=== PATIENT | female | born 1945 | race Caucasian/White ===

== ENCOUNTER 2023-03-19 14:05 | Emergency (ER) | payer MEDICARE, SELFPAY ==
[2023-03-19] VITALS (16 sets, daily range): BP systolic 168–192; BP diastolic 67–116; PULSE 58–65; RESP 8–20; TEMP 36.8; O2SAT 78–100; BMI 19.6
--- NOTE | 2023-03-19 14:22 | CT_ITS ---
The [address] [address] Patient Name: JASIEL ROOT MRN: [id number] date: 1945 Sex: F Assigned Patient Location: ER Current Patient Location: ER Accession/Order Number: [id number] Exam Date: 03/19/2023 15:00 Report Date: 03/19/2023 15:15 At the request of: COLTON GRAF Procedure: CT head/brain wo con EXAM: CT head/brain wo con HISTORY: Syncopal episode, injury, left orbital injury COMPARISON: None. TECHNIQUE: Axial noncontrast CT imaging of the head was performed with coronal and sagittal reformats. FINDINGS: Calvarium/skull base: Trace left periorbital soft tissue contusion. Visualized portion of the intraorbital soft tissues appear grossly unremarkable. No evidence of acute fracture or destructive lesion. Mastoids and middle ears demonstrate no substantial mucosal disease. Paranasal sinuses: No air fluid levels. Brain: No acute intracranial hemorrhage. No acute large vascular territory infarct. Moderate parenchymal volume loss with associated prominence of the ventricular system and sulci. No mass lesion or mass effect. No hydrocephalus. CT/CT head/brain wo con IMPRESSION: 1. No acute intracranial process. 2. Questionable diastases of seizure along the left supraorbital rim versus tiny fracture. This is suboptimally evaluated on the current study. If clinically warranted consider dedicated CT facial bones for further evaluation. 3. Left periorbital soft tissue contusion. Electronically authenticated by: JAVED BUCHANAN Date: 03/19/2023 15:15
--- NOTE | 2023-03-19 14:22 | CT_ITS ---
[address] [address] Patient Name: JASIEL ROOT MRN: [id number] date: 1945 Sex: F Assigned Patient Location: ER Current Patient Location: [facility] Accession/Order Number: [id number] Exam Date: 03/19/2023 15:00 Report Date: 03/19/2023 15:42 At the request of: COLTON GRAF Procedure: CT cervical spine wo con EXAMINATION: CT cervical spine wo con HISTORY: fall [] COMPARISON: None. TECHNIQUE: CT Cervical spine without IV contrast. Coronal and sagittal reformations were performed. Dose reduction techniques were achieved by using automated exposure control and/or adjustment of mA and/or kV according to patient size and/or use of iterative reconstruction technique. FINDINGS: CV JUNCTION: Normal foramen magnum with no Chiari malformation. PARASPINAL: Normal with no visible mass. BONES: No fracture, pars defect, or osseous lesion. OTHER: None. DISC LEVELS: C1-C2: Within normal limits for age. C2-C3: No significant disc/facet abnormality, spinal stenosis, or foraminal stenosis. C3-C4: No significant disc/facet abnormality, spinal stenosis, or foraminal stenosis. C4-C5: Early degenerative disc disease is present without focal protrusion. The central canal and left foramen are satisfactorily maintained. There is mild right foraminal stenosis. C5-C6: Early degenerative disc disease is present without focal protrusion. The central canal is satisfactorily maintained. There is mild foraminal stenosis bilaterally. C6-C7: Early degenerative disc disease is present without focal protrusion. The central canal and neural foramina are satisfactorily maintained. Facet arthropathy is noted, left greater than right. C7-T1: Early degenerative disc disease is present without focal protrusion. The central canal and neural foramina are satisfactorily maintained. Early facet arthropathy is noted. CT/CT cervical spine wo con IMPRESSION: Multilevel cervical spondylosis. No evidence for acute fracture or traumatic malalignment. Electronically authenticated by: Angie PANG Date: 03/19/2023 15:42
--- NOTE | 2023-03-19 14:22 | ECG_ITS ---
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
--- NOTE | 2023-03-19 14:25 | ED.HEATRA1 ---
Documented by User: Sasha Corcoran 03/19/23 18:08 HPI - Head Injury General Chief complaint: Head Injury Stated complaint: FELL/HIT HEAD Time Seen by Provider: 03/19/23 14:17 Source: patient Mode of arrival: Wheelchair Limitations: no limitations History of Present Illness HPI Narrative: 77 year old female presents to the ED for evaluation s/p a head injury. Her states she was in the restroom giving herself an enema. He left the area for a period of time. When he returned she was sitting on the toilet with a wound above her left eye and a wound to her left elbow. She does not recall what happened. She states she remembers passing a small amount of stool and then seeing her checking on her. She denies pain to her head, neck, back, chest, abdomen. Reports discomfort to her facial laceration area. Denies pain to the left elbow. Rates her discomfort 3/10. MD Complaint: Reports head injury Place: Reports home Associated symptoms: Reports confusion; Denies repetitive questioning, nausea, vomiting, vertigo, numbness, weakness, tingling or neck pain Related Data Home Medications Medication Instructions Recorded Confirmed albuterol sulfate 90 mcg/actuation 2 puff inhalation Q4H PRN 03/19/23 03/19/23 aerosol inhaler shortness of breath or wheezing budesonide-formoterol HFA 80 2 puff inhalation Q12H 03/19/23 03/19/23 mcg-4.5 mcg/actuation aerosol inhaler (Symbicort) lisinopril 10 1 tab PO DAILY 03/19/23 03/19/23 mg-hydrochlorothiazide 12.5 mg tablet nortriptyline 10 mg capsule 10 mg PO BEDTIME 03/19/23 03/19/23 Allergies Allergy/AdvReac Type Severity Reaction Status Date / Time No Known Drug Allergies Allergy Verified 03/19/23 14:09 Review of Systems ROS Constitutional Denies: fever or chills Eyes Denies: change in vision or blurry vision Ears, nose, mouth, and throat Denies: neck pain Cardiovascular Denies: chest pain, palpitations or lightheadedness Respiratory Denies: shortness of breath or cough Gastrointestinal Reports: constipation; Denies: abdominal pain, nausea or vomiting Genitourinary Denies: painful urination Musculoskeletal Denies: back pain, neck pain or extremity pain Integumentary/Breast Denies: rash or itching Neurological Reports: confusion; Denies: headache, numbness in extremities, weakness in extremities, lack of coordination, dizziness or slurred speech [facility] Social History Smoking status: Never smoker Exam Constitutional Vital Signs, click to edit/add: Last Vital Signs Temp 98.3 F 03/19/23 14:09 Pulse 59 L 03/19/23 17:30 Resp 8 L 03/19/23 17:30 BP 179/77 H 03/19/23 17:30 Pulse Ox 100 03/19/23 17:30 Common normals: no apparent distress General appearance: cooperative; not in distress and not ill appearing Orientation/consciousness: Yes awake HENMT Common normals: external ears normal Head and scalp: laceration (2.5 cm above left eye within eyebrow. Minimal bleeding. Appears superficial); no Morel's sign, no palpable skull fracture, no raccoon eyes and no scalp lesion Face and sinus: face symmetric Nose: external nose normal; no epistaxis Mouth: oral and palatal mucosa normal, lip normal and tongue normal Neck & C-Spine General: normal visual inspection and trachea midline Cervical spine: cervical ROM normal; no pain with cervical ROM, no cervical spine tenderness and no paracervical muscle tenderness Chest Chest: symmetrical chest wall rise Respiratory Common normals: normal respiratory effort Effort & inspection: able to speak in complete sentences Auscultation: clear to auscultation bilaterally Cardio Common normals: regular rate and regular rhythm GI Palpation: soft; non-tender Back & Pelvis Common normals: thoracic and lumbar spine normal to inspection and no thoracic nor lumbar tenderness Thoracic spine/upper back: no thoracic spinal tenderness and no paraspinal muscle tenderness Lumbar spine/lower back: no lumbar spinal tenderness and no paraspinal muscle tenderness Extremity Common normals: normal capillary refill Left upper extremity: elbow joint Left elbow: inspection (Superficial 1 cm laceration with bruising. No swelling or deformity.), palpation (Nontender) and ROM (Full ROM) Neuro Common normals: oriented x3, CN's II-XII intact bilaterally, moves all extremities and no focal motor deficits Sensorium/orientation: awake and alert Coordination/balance: xtnuog-cg-dmun test normal and [id number]-kk-[id number] test normal Speech: speech normal Motor exam: strength 5/5 throughout and no pronator drift Course Vital Signs Vital signs: Vital Signs Temperature 98.3 F 03/19/23 14:09 Pulse Rate 64 03/19/23 14:09 Respiratory Rate 20 03/19/23 14:09 Blood Pressure 192/67 H 03/19/23 14:09 Pulse Oximetry 99 03/19/23 14:09 Temperature 98.3 F 03/19/23 14:09 Pulse Rate 59 L 03/19/23 17:30 Respiratory Rate 8 L 03/19/23 17:30 Blood Pressure 179/77 H 03/19/23 17:30 Pulse Oximetry 100 03/19/23 17:30 MDM - Head Injury MDM Narrative Medical decision making narrative: Imaging was negative for acute findings. Her wounds were cleansed. Sutures were placed in the facial laceration utilizing sterile procedure. The area was cleansed with saline x3 and draped in a sterile fashion. 1% lidocaine without epinephrine was used to anesthetize the area. The wound was then irrigated with NS. Five simple interrupted sutures were placed using 5-0 Ethilon. She tolerated the procedure well. There was scant bleeding. She was encouraged to follow up with her pcp for a recheck, further evaluation and treatment. Return precautions were discussed. She was discharged to her . Differential Diagnosis Differential diagnosis: Likely concussion without loss of consciousness, closed head injury and other (facial laceration, facial contusion, facial fracture, syncope) Lab Data Attestation: I reviewed the patient's lab results. Labs: Lab Results 03/19/23 Range/Units 14:55 WBC 13.4 H (4.0-11.0) 10^3/uL RBC 5.09 (4.20-5.40) 10^6/uL Hgb 15.7 (12.0-16.0) g/dL Hct 45.9 (36.0-48.0) % MCV 90.2 (81.0-99.0) fL MCH 30.8 (26.7-34.0) pg MCHC 34.2 (29.9-35.2) g/dL RDW 12.6 (11.0-15.0) % Plt Count 274 (150-450) 10^3/uL MPV 10.5 (9.5-13.5) fL Neut % (Auto) 84.7 H (43.0-75.0) % Lymph % (Auto) 7.6 L (20.5-60.0) % [place] % (Auto) 6.3 (1.7-12.0) % Eos % (Auto) 0.6 L (0.9-7.0) % Baso % (Auto) 0.4 (0.2-2.0) % Neut # (Auto) 11.4 H (1.4-6.5) 10^3/uL Lymph # (Auto) 1.0 L (1.2-3.8) 10^3/uL [place] # (Auto) 0.8 (0.3-0.8) 10^3/uL Eos # (Auto) 0.1 (0.0-0.7) 10^3/uL Baso # (Auto) 0.1 (0.0-0.1) 10^3/uL Abs Immat Gran (auto) 0.05 H (0.00-0.03) 10^3/uL Imm/Tot Granulo (auto) 0.4 (0.0-0.5) % Sodium 137 (136-145) mmol/L Potassium 3.6 (3.5-5.1) mmol/L Chloride 100 (98-107) mmol/L Carbon Dioxide 25.5 (21.0-32.0) mmol/L Anion Gap 15.1 BUN 18.0 (7.0-18.0) mg/dL Creatinine 0.82 (0.55-1.02) mg/dL Est GFR ( Amer) >60 (>=60) Est GFR (Non-Af Amer) >60 (>=60) BUN/Creatinine Ratio 22.0 Glucose 113 H (74-106) mg/dL Calcium 9.9 (8.5-10.1) mg/dL Total Bilirubin 0.6 (0.2-1.0) mg/dL AST 48 H (15-37) U/L ALT 42 (14-59) U/L Alkaline Phosphatase 73 (46-116) U/L Troponin I High Sens 32.5 (4.0-51.3) pg/mL Total Protein 8.1 (6.4-8.2) g/dL Albumin 4.4 (3.4-5.0) g/dL Globulin 3.7 g/dL Albumin/Globulin Ratio 1.[address] facial bones: Radiologist's impression: Procedure:? CT facial bones wo con ? EXAM: CT facial bones wo con ? HISTORY: fall ? COMPARISON: None. ? TECHNIQUE: CT imaging of the facial bone was without intravenous contrast. Multiplanar reformats were performed. Dose reduction techniques were achieved by using automated exposure control and/or adjustment of mA and/or kV according to patient size and/or use of iterative reconstruction technique. ? FINDINGS: ? No acute fracture or dislocation. No aggressive bone lesion. Paranasal sinuses ? are normal. The TM joint is normal. The airway is patent. No lymphadenopathy. Bilateral orbits and optic nerves are normal. There is left periorbital soft tissue edema. ? CT/CT facial bones wo con IMPRESSION: No acute fracture. Left periorbital soft tissue edema. ? ? Electronically authenticated by: HUGH GUERRA ? Date: 03/19/2023? 17:47 CT scan- cervical spine: Radiologist's impression: Procedure:? CT cervical spine wo con ? EXAMINATION: CT cervical spine wo con ? HISTORY: fall [] ? COMPARISON: None. ? TECHNIQUE: CT Cervical spine without IV contrast. Coronal and sagittal reformations were performed. ? Dose reduction techniques were achieved by using automated exposure control and/or adjustment of mA and/or kV according to patient size and/or use of iterative reconstruction technique. ? FINDINGS: CV JUNCTION: Normal foramen magnum with no Chiari malformation. PARASPINAL: Normal with no visible mass. BONES: No fracture, pars defect, or osseous lesion. OTHER: None. ? DISC LEVELS: C1-C2: Within normal limits for age. C2-C3: No significant disc/facet abnormality, spinal stenosis, or foraminal stenosis. C3-C4: No significant disc/facet abnormality, spinal stenosis, or foraminal stenosis. C4-C5: Early degenerative disc disease is present without focal protrusion. The central canal and left foramen are satisfactorily maintained. There is mild right foraminal stenosis. C5-C6: Early degenerative disc disease is present without focal protrusion. The central canal is satisfactorily maintained. There is mild foraminal stenosis bilaterally. C6-C7: Early degenerative disc disease is present without focal protrusion. The central canal and neural foramina are satisfactorily maintained. Facet arthropathy is noted, left greater than right. C7-T1: Early degenerative disc disease is present without focal protrusion. The central canal and neural foramina are satisfactorily maintained. Early facet arthropathy is noted. ? CT/CT cervical spine wo con IMPRESSION: Multilevel cervical spondylosis. No evidence for acute fracture or traumatic malalignment. ? ? Electronically authenticated by: Fermin PANG ? Date: 03/19/2023? 15:42 CT scan - head: Radiologist's impression: Procedure:? CT head/brain wo con ? EXAM: CT head/brain wo con ? HISTORY: Syncopal episode, injury, left orbital injury ? COMPARISON: None. ? TECHNIQUE: Axial noncontrast CT imaging of the head was performed with coronal ? and sagittal reformats. ? FINDINGS: Calvarium/skull base: Trace left periorbital soft tissue contusion. Visualized ? portion of the intraorbital soft tissues appear grossly unremarkable. No evidence of acute fracture or destructive lesion. Mastoids and middle ears demonstrate no substantial mucosal disease. ? Paranasal sinuses: No air fluid levels. ? Brain: No acute intracranial hemorrhage. No acute large vascular territory infarct. Moderate parenchymal volume loss with associated prominence of the ventricular system and sulci. No mass lesion or mass effect. No hydrocephalus. ? ? CT/CT head/brain wo con IMPRESSION: 1. No acute intracranial process. 2. Questionable diastases of seizure along the left supraorbital rim versus tiny fracture. This is suboptimally evaluated on the current study. If clinically warranted consider dedicated CT facial bones for further evaluation. 3. Left periorbital soft tissue contusion. ? ? Electronically authenticated by: LENCHO BUCHANAN ? Date: 03/19/2023? 15:15 ECG Data Attestation: ?I have reviewed the pertinent ECG results. (EKG was reviewed by the attending physician. It showed sinus rhythm at a rate of 58. No acute ST segment changes. MI interval 156 ms. QTc 406 ms.) Interpretation: ?? Measurements Intervals? [place]? Rate: ? 58 ? P:? 66 MI: ? 156? QRS:? 90 QRSD: ? 88 ? T:? 65 QT: ? 408? QTc:? 406? Interpretive Statements 1100 Sinus rhythm 7300 Indeterminate axis 9120 ? atypical ECG? No previous ECG available for comparison Discharge Plan Discharge Chief Complaint: Head Injury Clinical Impression: Closed head injury, Syncope and collapse, Facial laceration, Contusion of face, Abrasion of elbow Patient Disposition: Home, Self-Care Time of Disposition Decision: 17:58 Condition: Good Mode of Transportation: Private Vehicle Prescriptions / Home Meds: No Action albuterol sulfate 90 mcg/actuation HFA aerosol inhaler 2 puff INHALATION Q4H PRN (Reason: shortness of breath or wheezing) lisinopril-hydrochlorothiazide 10-12.5 mg tablet 1 tab PO DAILY nortriptyline 10 mg capsule 10 mg PO BEDTIME budesonide-formoterol [Symbicort] 80-4.5 mcg/actuation HFA aerosol inhaler 2 puff INHALATION Q12H Instructions: Laceration (ED), Head Injury (ED), Facial Contusion (ED), Syncope in Older Adults (ED) Additional Instructions: The stitches will need to be removed in 5-7 days. Keep the wound clean and dry. Gentle cleansing with soap and water is okay. Watch for signs of infection: redness, purulent drainage, increased warmth, swelling. Stand Alone Forms: Portal Instructions Referrals: SRINIVASAN LEZAMA [Primary Care Provider] - 1 week Discharge Date/Time: 03/19/23 18:08 Documented by User: Heriberto Ríos MD 03/19/23 19:45 HPI - Head Injury General Chief complaint: Head Injury Stated complaint: FELL/HIT HEAD Time Seen by Provider: 03/19/23 14:17 Related Data Home Medications Medication Instructions Recorded Confirmed albuterol sulfate 90 mcg/actuation 2 puff inhalation Q4H PRN 03/19/23 03/19/23 aerosol inhaler shortness of breath or wheezing budesonide-formoterol HFA 80 2 puff inhalation Q12H 03/19/23 03/19/23 mcg-4.5 mcg/actuation aerosol inhaler (Symbicort) lisinopril 10 1 tab PO DAILY 03/19/23 03/19/23 mg-hydrochlorothiazide 12.5 mg tablet nortriptyline 10 mg capsule 10 mg PO BEDTIME 03/19/23 03/19/23 Allergies Allergy/AdvReac Type Severity Reaction Status Date / Time No Known Drug Allergies Allergy Verified 03/19/23 14:09 PFSH PFSH Social History Smoking status: Never smoker Exam Constitutional Vital Signs, click to edit/add: Last Vital Signs Temp 98.3 F 03/19/23 14:09 Pulse 59 L 03/19/23 17:30 Resp 8 L 03/19/23 17:30 BP 179/77 H 03/19/23 17:30 Pulse Ox 100 03/19/23 17:30 Course Vital Signs Vital signs: Vital Signs Temperature 98.3 F 03/19/23 14:09 Pulse Rate 64 03/19/23 14:09 Respiratory Rate 20 03/19/23 14:09 Blood Pressure 192/67 H 03/19/23 14:09 Pulse Oximetry 99 03/19/23 14:09 Temperature 98.3 F 03/19/23 14:09 Pulse Rate 59 L 03/19/23 17:30 Respiratory Rate 8 L 03/19/23 17:30 Blood Pressure 179/77 H 03/19/23 17:30 Pulse Oximetry 100 03/19/23 17:30 MDM - Head Injury MDM Narrative Medical decision making narrative: Imaging was negative for acute findings. Laceration procedure note: Her wounds were cleansed. Sutures were placed in the facial laceration utilizing sterile procedure. The area was cleansed with saline x3 and draped in a sterile fashion. 1% lidocaine without epinephrine was used to anesthetize the area. The wound was then irrigated with NS. Five simple interrupted sutures were placed using 5-0 Ethilon. She tolerated the procedure well. There was scant bleeding. She was encouraged to follow up with her pcp for a recheck, further evaluation and treatment. Return precautions were discussed. She was discharged to her . I, Dr Ríos, have reviewed the above progress note and course of action in the ER; agree with the above. I have personally seen and evaluated this patient, gone over history and physical, and discussed disposition and treatment plan with the patient. Lab Data Labs: Lab Results 03/19/23 Range/Units 14:55 WBC 13.4 H (4.0-11.0) 10^3/uL RBC 5.09 (4.20-5.40) 10^6/uL Hgb 15.7 (12.0-16.0) g/dL Hct 45.9 (36.0-48.0) % MCV 90.2 (81.0-99.0) fL MCH 30.8 (26.7-34.0) pg MCHC 34.2 (29.9-35.2) g/dL RDW 12.6 (11.0-15.0) % Plt Count 274 (150-450) 10^3/uL MPV 10.5 (9.5-13.5) fL Neut % (Auto) 84.7 H (43.0-75.0) % Lymph % (Auto) 7.6 L (20.5-60.0) % [place] % (Auto) 6.3 (1.7-12.0) % Eos % (Auto) 0.6 L (0.9-7.0) % Baso % (Auto) 0.4 (0.2-2.0) % Neut # (Auto) 11.4 H (1.4-6.5) 10^3/uL Lymph # (Auto) 1.0 L (1.2-3.8) 10^3/uL [place] # (Auto) 0.8 (0.3-0.8) 10^3/uL Eos # (Auto) 0.1 (0.0-0.7) 10^3/uL Baso # (Auto) 0.1 (0.0-0.1) 10^3/uL Abs Immat Gran (auto) 0.05 H (0.00-0.03) 10^3/uL Imm/Tot Granulo (auto) 0.4 (0.0-0.5) % Sodium 137 (136-145) mmol/L Potassium 3.6 (3.5-5.1) mmol/L Chloride 100 (98-107) mmol/L Carbon Dioxide 25.5 (21.0-32.0) mmol/L Anion Gap 15.1 BUN 18.0 (7.0-18.0) mg/dL Creatinine 0.82 (0.55-1.02) mg/dL Est GFR ( Amer) >60 (>=60) Est GFR (Non-Af Amer) >60 (>=60) BUN/Creatinine Ratio 22.0 Glucose 113 H (74-106) mg/dL Calcium 9.9 (8.5-10.1) mg/dL Total Bilirubin 0.6 (0.2-1.0) mg/dL AST 48 H (15-37) U/L ALT 42 (14-59) U/L Alkaline Phosphatase 73 (46-116) U/L Troponin I High Sens 32.5 (4.0-51.3) pg/mL Total Protein 8.1 (6.4-8.2) g/dL Albumin 4.4 (3.4-5.0) g/dL Globulin 3.7 g/dL Albumin/Globulin Ratio 1.2 Discharge Plan Discharge Chief Complaint: Head Injury Clinical Impression: Closed head injury, Syncope and collapse, Facial laceration, Contusion of face, Abrasion of elbow Patient Disposition: Home, Self-Care Time of Disposition Decision: 17:58 Condition: Good Mode of Transportation: Private Vehicle Prescriptions / Home Meds: No Action albuterol sulfate 90 mcg/actuation HFA aerosol inhaler 2 puff INHALATION Q4H PRN (Reason: shortness of breath or wheezing) lisinopril-hydrochlorothiazide 10-12.5 mg tablet 1 tab PO DAILY nortriptyline 10 mg capsule 10 mg PO BEDTIME budesonide-formoterol [Symbicort] 80-4.5 mcg/actuation HFA aerosol inhaler 2 puff INHALATION Q12H Instructions: Laceration (ED), Head Injury (ED), Facial Contusion (ED), Syncope in Older Adults (ED) Additional Instructions: The stitches will need to be removed in 5-7 days. Keep the wound clean and dry. Gentle cleansing with soap and water is okay. Watch for signs of infection: redness, purulent drainage, increased warmth, swelling. Stand Alone Forms: Portal Instructions Referrals: SRINIVASAN LEZAMA [Primary Care Provider] - 1 week Discharge Date/Time: 03/19/23 18:08
[2023-03-19 15:09] LABS: Basophils Absolute Auto 0.1 10^3/uL (0.0-0.1); Basophils Percent Auto 0.4 % (0.2-2.0); Eosinophils Absolute Auto 0.1 10^3/uL (0.0-0.7); Eosinophils Percent Auto 0.6 % (0.9-7.0); Hematocrit 45.9 % (36.0-48.0); Hemoglobin 15.7 g/dL (12.0-16.0); Immature Granulocytes Abs Auto 0.05 10^3/uL (0.00-0.03); Immature Granulocytes Pct Auto 0.4 % (0.0-0.5); Lymphocytes Percent Auto 7.6 % (20.5-60.0); Mean Corpuscular HGB Conc 34.2 g/dL (29.9-35.2); Mean Corpuscular Hemoglobin 30.8 pg (26.7-34.0); Mean Corpuscular Volume 90.2 fL (81.0-99.0); Mean Platelet Volume 10.5 fL (9.5-13.5); Monocytes Absolute Auto 0.8 10^3/uL (0.3-0.8); Monocytes Percent Auto 6.3 % (1.7-12.0); Neutrophils Absolute Auto 11.4 10^3/uL (1.4-6.5); Neutrophils Percent Auto 84.7 % (43.0-75.0); Platelet Count 274 10^3/uL (150-450); Red Blood Count 5.09 10^6/uL (4.20-5.40); Red Cell Distribution Width 12.6 % (11.0-15.0); White Blood Count 13.4 10^3/uL (4.0-11.0)
[2023-03-19 15:30] LABS: Alanine Aminotransferase 42 U/L (14-59); Albumin Globulin Ratio 1.2; Albumin Level 4.4 g/dL (3.4-5.0); Alkaline Phosphatase 73 U/L (46-116); Anion Gap 15.1; Aspartate Amino Transferase 48 U/L (15-37); Bilirubin Total 0.6 mg/dL (0.2-1.0); Calcium 9.9 mg/dL (8.5-10.1); Carbon Dioxide 25.5 mmol/L (21.0-32.0); Chloride 100 mmol/L (98-107); Estimated GFR (African America >60 (>=60); Estimated GFR (Non-African Ame >60 (>=60); Globulin 3.7 g/dL; Glucose 113 mg/dL (74-106); Potassium 3.6 mmol/L (3.5-5.1); Sodium 137 mmol/L (136-145); Total Protein 8.1 g/dL (6.4-8.2); Troponin I High Sensitivity 32.5 pg/mL (4.0-51.3)
--- NOTE | 2023-03-19 15:50 | CT_ITS ---
The [address] [address] Patient Name: JASIEL ROOT MRN: [id number] date: 1945 Sex: F Assigned Patient Location: ER Current Patient Location: ER Accession/Order Number: [id number] Exam Date: 03/19/2023 16:08 Report Date: 03/19/2023 17:47 At the request of: COLTON GRAF Procedure: CT facial bones wo con EXAM: CT facial bones wo con HISTORY: fall COMPARISON: None. TECHNIQUE: CT imaging of the facial bone was without intravenous contrast. Multiplanar reformats were performed. Dose reduction techniques were achieved by using automated exposure control and/or adjustment of mA and/or kV according to patient size and/or use of iterative reconstruction technique. FINDINGS: No acute fracture or dislocation. No aggressive bone lesion. Paranasal sinuses are normal. The TM joint is normal. The airway is patent. No lymphadenopathy. Bilateral orbits and optic nerves are normal. There is left periorbital soft tissue edema. CT/CT facial bones wo con IMPRESSION: No acute fracture. Left periorbital soft tissue edema. Electronically authenticated by: SCOTTIE GUERRA Date: 03/19/2023 17:47
[2023-03-19] MEDS: LIDOCAINE HCL 1% PF 20 MG/2 ML VIAL INJ (16:23)
== END 2023-03-19 18:08 | disposition home or self-care (01) ==
PROVIDERS: Nurse Practitioner Family; Emergency Provider Emergency Medicine; PCP Family Medicine
DX: S01.112A Laceration without foreign body of left eyelid and periocular area, initial encounter (principal); R55 Syncope and collapse; S09.8XXA Other specified injuries of head, initial encounter; S50.312A Abrasion of left elbow, initial encounter; S00.83XA Contusion of other part of head, initial encounter; X58.XXXA Exposure to other specified factors, initial encounter; Z79.899 Other long term (current) drug therapy
CPT/HCPCS: 12011; 36415; 70450; 70486; 72125; 80053; 84484; 85025; 93005; 99285

== ENCOUNTER 2023-03-21 02:53 | Emergency (ER) | payer MEDICARE, SELFPAY ==
[2023-03-21 02:57] VITALS: BP 199/63; PULSE 66; RESP 16; TEMP 36.3; O2SAT 99; BMI 20.6
[2023-03-21 03:02] VITALS: BP 199/63
--- NOTE | 2023-03-21 03:12 | ED.ABDPAIN1 ---
HPI - Abdominal Pain General Chief Complaint: Abdominal Pain Stated Complaint: ABDOMINAL PAIN Time Seen by Provider: 03/21/23 03:12 History of Present Illness HPI narrative: Patient presents to emergency department complaining of constipation. Patient states she has not had a bowel movement in 5 days. She states she used to take MiraLAX but has not taking it in several months. She is trying a different gummy which somebody told her that would be better. She has been taking that and did a glycerin suppository has not had any relief. She was straining 2 days ago when she fell and sustained a left eye contusion. She was seen in the emergency department for that already. She denies any fever, chills. She states that she had cramping earlier today but that has resolved. She had a normal colonoscopy 1 year ago. She is passing gas. She denies any flank pain, hematuria, dysuria. She denies any nausea, vomiting. Related Data Home Medications Medication Instructions Recorded Confirmed albuterol sulfate 90 mcg/actuation 2 puff inhalation Q4H PRN 03/19/23 03/19/23 aerosol inhaler shortness of breath or wheezing budesonide-formoterol HFA 80 2 puff inhalation Q12H 03/19/23 03/19/23 mcg-4.5 mcg/actuation aerosol inhaler (Symbicort) lisinopril 10 1 tab PO DAILY 03/19/23 03/19/23 mg-hydrochlorothiazide 12.5 mg tablet nortriptyline 10 mg capsule 10 mg PO BEDTIME 03/19/23 03/19/23 Allergies Allergy/AdvReac Type Severity Reaction Status Date / Time No Known Drug Allergies Allergy Verified 03/21/23 03:04 Review of Systems ROS Status of ROS 10 or more systems reviewed and unremarkable except as noted in history and below PFSH PFS Social History Smoking status: Never smoker Exam Narrative Exam Narrative: Nurses notes and vital signs reviewed and patient is not hypoxic. General: Nontoxic, Elderly, frail, and in no apparent distress. Skin: Warm, dry, no pallor noted. No Rash Head: Normocephalic, atraumatic. Neck: Supple, non-tender. Eye: Pupils are equal, round and EOMI. No scleral icterus. Ears, Nose, Mouth, and Throat: TM clear, no posterior oropharynx erythema or nasal mucosal hypertrophy, uvula is mid-line Oral mucosa is moist Cardiovascular: Regular Rate and Rhythm without murmur, gallop or rub. Respiratory: No accessory muscle use or respiratory distress. Lungs are clear to auscultation, no wheezing, rales or rhonchi Chest Wall: no tenderness Back: No midline thoracic or lumbar vertebral tenderness. No CVA tenderness Musculoskeletal: normal ROM, no calf or popliteal tenderness, no lower extremity edema/swelling GI: Abdomen is soft, non-distended. Normal bowel sounds. No masses appreciated. No tenderness to palpation. No rebound, guarding, or rigidity noted. Rectal, small hard stool, yellow, no impaction Neurological: A&O x4. No cranial nerve dysfunction observed. No truncal ataxia. Moves all extremities. Sensation intact. Psychiatric: Cooperative and interactive. Normal mood and affect. Constitutional Vital Signs, click to edit/add: Last Vital Signs Temp 97.4 F L 03/21/23 02:57 Pulse 66 03/21/23 02:57 Resp 16 03/21/23 02:57 BP 179/76 H 03/21/23 03:45 Pulse Ox 99 03/21/23 02:57 O2 Del Method Room Air 03/21/23 02:57 Course Vital Signs Vital signs: Vital Signs Temperature 97.4 F L 03/21/23 02:57 Pulse Rate 66 03/21/23 02:57 Respiratory Rate 16 03/21/23 02:57 Blood Pressure 199/63 H 03/21/23 02:57 Pulse Oximetry 99 03/21/23 02:57 Oxygen Delivery Method Room Air 03/21/23 02:57 Temperature 97.4 F L 03/21/23 02:57 Pulse Rate 66 03/21/23 02:57 Respiratory Rate 16 03/21/23 02:57 Blood Pressure 179/76 H 03/21/23 03:45 Pulse Oximetry 99 03/21/23 02:57 Oxygen Delivery Method Room Air 03/21/23 02:57 MDM - Abdominal Pain MDM Narrative Medical decision making narrative: X-ray was done. Patient was given a fleets enema. She had a large bowel movement with results she felt much better. Patient is advised to continue taking MiraLAX. At this time the patient is without objective evidence of an acute process requiring hospitalization or inpatient management. The patient has remained hemodynamically stable. No additional indication for emergent studies at this time. I answered all questions. Discussed discharge instructions including standard anticipatory guidance and what should prompt a return to the emergency department, including if they get worse are not getting better or develops any new or concerning symptoms. I've given them specific time frame in which to follow-up, and who to follow-up with. The patient demonstrates understanding. Patient is nontoxic and stable for discharge with outpatient follow-up. This note was created with the assistance of a speech recognition program. Although the intention is to generate documents that actually reflects the content of the visit, no guarantees can be provided that every mistake has been identified and corrected by editing. Differential Diagnosis Differential diagnosis: Likely abdominal pain, constipation and small bowel obstruction Discharge Plan Discharge Chief Complaint: Abdominal Pain Clinical Impression: Constipation Patient Disposition: Home, Self-Care Time of Disposition Decision: 05:25 Condition: Good Mode of Transportation: Private Vehicle Prescriptions / Home Meds: No Action albuterol sulfate 90 mcg/actuation HFA aerosol inhaler 2 puff INHALATION Q4H PRN (Reason: shortness of breath or wheezing) lisinopril-hydrochlorothiazide 10-12.5 mg tablet 1 tab PO DAILY nortriptyline 10 mg capsule 10 mg PO BEDTIME budesonide-formoterol [Symbicort] 80-4.5 mcg/actuation HFA aerosol inhaler 2 puff INHALATION Q12H Instructions: Constipation (ED) Stand Alone Forms: Portal Instructions Referrals: SRINIVASAN LEZAMA [Primary Care Provider] - 1 week
[2023-03-21 03:40] VITALS: BP 159/82
[2023-03-21 03:45] VITALS: BP 179/76
--- NOTE | 2023-03-21 03:51 | XR_ITS ---
The [address] [address] Patient Name: JASIEL ROOT MRN: [id number] date: 1945 Sex: F Assigned Patient Location: ER Current Patient Location: ER Accession/Order Number: [id number] Exam Date: 03/21/2023 04:05 Report Date: 03/21/2023 04:35 At the request of: BUTCH AMAYA Procedure: XR acute abdomen series EXAM: XR acute abdomen series HISTORY: Constipation; technologist notes also state cramping, discomforting constipated for one week. COMPARISON: None. TECHNIQUE: Frontal view of the chest, AP upright view of the abdomen and 2 AP supine views of the abdomen performed. FINDINGS: Chest: The trachea is midline. The heart size is normal. The cardiomediastinal silhouette and hilar shadows are normal. The lung volumes are normal. There is mild biapical pleural parenchymal scarring. There is no consolidation or infiltrate, pleural effusion or pulmonary vascular congestion. There is no pneumothorax. The bony structures are osteopenic. There is mild dextroscoliosis of the thoracic spine. Abdomen: The bowel gas pattern is nonobstructive. There is gas within the nondistended colon and gas within a few nondistended loops of small bowel. There are a few small scattered air-fluid levels on the upright projection. There is a moderately large amount of stool within the sigmoid colon and rectum. There is no free air. There are no abnormal mass shadows. There are several calcified splenic granuloma. There are numerous pelvic phleboliths. There is slight levoscoliosis of the lumbar spine. There are endplate spurs at L2-L3. XR/XR acute abdomen series IMPRESSION: There is no acute cardiopulmonary process. Nonobstructive bowel gas pattern with a moderately large amount of stool within the sigmoid colon and rectum. Electronically authenticated by: ASTRID GARRETT Date: 03/21/2023 04:35
== END 2023-03-21 05:56 | disposition home or self-care (01) ==
PROVIDERS: Emergency Provider Emergency Medicine; PCP Family Medicine
DX: K59.00 Constipation, unspecified (principal); Z79.899 Other long term (current) drug therapy
CPT/HCPCS: 74022; 99283

== ENCOUNTER 2023-03-25 10:05 | Outpatient (OUT) | payer MEDICARE, SELFPAY ==
--- NOTE | 2023-03-25 10:13 | MM_ITS ---
Patient: JASIEL ROOT Exam Date: 03/25/2023 : 1945 Gender:F Ordering : DR KAIT BOYCE Admission #: [id number] Family : DR. SRINIVASAN LEZAMA . Order #: [id number] CLICK HERE TO VIEW EXAM RADIOLOGY REPORT PROCEDURE: MM TOMOSYNTHESIS SCREENING BI COMPARISON: MG MAMM SCREEN 3D ELSI CAD, 03/14/2022. MG MAMM SCREEN 3D ELSI CAD, 03/09/2021. MG MAMM SCREEN ELSI W CAD, 03/06/2020. MG MAMM ELSI SCRN W CAD DIG, 10/21/2013. INDICATIONS: Screening Calculator Name NCI Breast Cancer Risk Assessment Tool 5 Year Breast Cancer Risk 2.90% Lifetime Breast Cancer Risk 4.90% Personal Breast Cancer No Personal Ovarian Cancer No Treatments None Family Cancers Sister with breast cancer at age 55. LOCATION: [facility] BREAST COMPOSITION: Heterogeneously dense,which may obscure small masses. FINDINGS: DIAGNOSTIC CATEGORY 1--NEGATIVE. RIGHT BREAST: No significant suspicious finding. No significant change has occurred. LEFT BREAST: No significant suspicious finding. No significant change has occurred. RECOMMENDATIONS: ROUTINE MAMMOGRAM AND CLINICAL EVALUATION IN 12 MONTHS. PLEASE NOTE: A NORMAL MAMMOGRAM DOES NOT EXCLUDE THE POSSIBILITY OF BREAST CANCER. A CLINICALLY SUSPICIOUS PALPABLE LUMP SHOULD BE BIOPSIED. Dictated by: Manuel Gaffney M.D. on 03/25/2023 at 14:53 Approved by: Manuel Gaffney M.D. on 03/25/2023 at 14:56
== END 2023-03-25 10:06 | disposition home or self-care (01) ==
LOC: MAMMO 10:05
PROVIDERS: PCP Family Medicine; Visit Provider Obstetrics & Gynecology
DX: Z12.31 Encounter for screening mammogram for malignant neoplasm of breast (principal); Z80.3 Family history of malignant neoplasm of breast
CPT/HCPCS: 77063; 77067

== ENCOUNTER 2023-05-09 15:10 | Emergency (ER) | payer MEDICARE, SELFPAY ==
[2023-05-09] VITALS (24 sets, daily range): BP systolic 138–175; BP diastolic 58–101; PULSE 52–80; RESP 10–22; TEMP 37.1; O2SAT 96–100; BMI 30.1
[2023-05-09] MEDS: ASPIRIN 81 MG TAB.CHEW 324 MG PO (16:08)
[2023-05-09 16:12] LABS: Basophils Absolute Auto 0.1 10^3/uL (0.0-0.1); Basophils Percent Auto 0.7 % (0.2-2.0); Eosinophils Absolute Auto 0.1 10^3/uL (0.0-0.7); Eosinophils Percent Auto 1.4 % (0.9-7.0); Hematocrit 43.6 % (36.0-48.0); Hemoglobin 14.9 g/dL (12.0-16.0); Immature Granulocytes Abs Auto 0.02 10^3/uL (0.00-0.03); Immature Granulocytes Pct Auto 0.2 % (0.0-0.5); Lymphocytes Absolute Auto 1.8 10^3/uL (1.2-3.8); Lymphocytes Percent Auto 21.1 % (20.5-60.0); Mean Corpuscular HGB Conc 34.2 g/dL (29.9-35.2); Mean Corpuscular Volume 90.8 fL (81.0-99.0); Mean Platelet Volume 9.6 fL (9.5-13.5); Monocytes Absolute Auto 0.6 10^3/uL (0.3-0.8); Monocytes Percent Auto 7.6 % (1.7-12.0); Neutrophils Absolute Auto 5.8 10^3/uL (1.4-6.5); Platelet Count 306 10^3/uL (150-450); Red Cell Distribution Width 12.9 % (11.0-15.0); White Blood Count 8.4 10^3/uL (4.0-11.0)
--- NOTE | 2023-05-09 16:20 | XR_ITS ---
The [address] [address] Patient Name: JASIEL ROOT MRN: [id number] date: 1945 Sex: F Assigned Patient Location: ER Current Patient Location: ER Accession/Order Number: [id number] Exam Date: 05/09/2023 16:15 Report Date: 05/09/2023 16:36 At the request of: MANA JONES Procedure: XR chest 1V EXAM: CHEST 1 VIEW HISTORY: chest pain TECHNIQUE: Chest, one view. COMPARISON: None. FINDINGS: Lungs are hyperinflated and clear. No focal consolidation, pleural effusion, or pneumothorax. Pulmonary vasculature is within normal limits. Cardiomediastinal silhouette is upper limits of normal to borderline enlarged. There is thoracolumbar scoliosis. XR/XR chest 1V IMPRESSION: 1. Hyperinflated and clear lungs without acute cardiopulmonary disease. 2. Upper limits of normal to borderline enlarged heart size. Electronically authenticated by: SUMAN WAGONER Date: 05/09/2023 16:36
[2023-05-09 16:33] LABS: Alanine Aminotransferase 23 U/L (14-59); Albumin Globulin Ratio 1.1; Albumin Level 3.8 g/dL (3.4-5.0); Alkaline Phosphatase 78 U/L (46-116); Anion Gap 13.3; Aspartate Amino Transferase 13 U/L (15-37); BUN Creatinine Ratio 20.5; Bilirubin Total 0.3 mg/dL (0.2-1.0); Calcium 8.9 mg/dL (8.5-10.1); Chloride 105 mmol/L (98-107); Estimated GFR (African America >60 (>=60); Estimated GFR (Non-African Ame >60 (>=60); Globulin 3.4 g/dL; Glucose 105 mg/dL (74-106); Potassium 3.3 mmol/L (3.5-5.1); Sodium 144 mmol/L (136-145); Total Protein 7.2 g/dL (6.4-8.2); Troponin I High Sensitivity 20.7 pg/mL (4.0-51.3)
[2023-05-09 17:01] LABS: INR <0.93; Partial Thromboplastin Time 27.3 sec (22.3-36.2); Prothrombin Time 9.5 sec (9.0-11.6)
--- NOTE | 2023-05-09 17:25 | ECG_ITS ---
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
--- NOTE | 2023-05-09 17:56 | ED.CHESTPAI1 ---
Documented by User: Sandra Jones 05/09/23 19:00 HPI - Chest Pain General Chief Complaint: Chest Pain Stated Complaint: CHEST PAIN Time Seen by Provider: 05/09/23 15:42 Source: patient Mode of arrival: ambulance Limitations: no limitations History of Present Illness HPI narrative: 77-year-old female presents emergency room by squad with chief complaint of chest pain. Patient was doing dishes and folding laundry at home today when she developed the chest pain pressure. No significant history of high in the past. Patient does have a history of syncopal events and hypertension. She denied any radiation of pain nausea vomiting or sweating. Her was there. He witnessed the event. She states she had chest pain for about 5-10 minutes. No radiation of the chest pain. called squad because she did not have relief of the pain. Patient's alert and oriented upon arrival here to the emergency room. No acute distress and chest pain had resolved. Patient was not given any medications and squad or took any medication today to help relieve the chest pain. She does not take a baby aspirin daily. Risk Factors Coronary artery disease risk factors: hypertension Related Data Home Medications Medication Instructions Recorded Confirmed albuterol sulfate 90 mcg/actuation 2 puff inhalation Q4H PRN 03/19/23 03/19/23 aerosol inhaler shortness of breath or wheezing budesonide-formoterol HFA 80 2 puff inhalation Q12H 03/19/23 03/19/23 mcg-4.5 mcg/actuation aerosol inhaler (Symbicort) lisinopril 10 1 tab PO DAILY 03/19/23 03/19/23 mg-hydrochlorothiazide 12.5 mg tablet nortriptyline 10 mg capsule 10 mg PO BEDTIME 03/19/23 03/19/23 Allergies Allergy/AdvReac Type Severity Reaction Status Date / Time No Known Drug Allergies Allergy Verified 03/21/23 03:04 Review of Systems ROS Narrative All Systems are negative except as noted/marked.All systems reviewed and otherwise negative PFSH PFS Social History Smoking status: Never smoker Exam Constitutional Vital Signs, click to edit/add: Last Vital Signs Temp 98.8 F 05/09/23 15:28 Pulse 53 L 05/09/23 18:46 Resp 14 05/09/23 18:46 BP 174/73 H 09/08/23 18:46 Pulse Ox 96 05/09/23 18:46 O2 Del Method Room Air 05/09/23 15:56 Course Vital Signs Vital signs: Vital Signs Temperature 98.8 F 05/09/23 15:28 Pulse Rate 62 05/09/23 15:28 Respiratory Rate 18 05/09/23 15:28 Pulse Oximetry 98 05/09/23 15:28 Oxygen Delivery Method Room Air 05/09/23 15:28 Temperature 98.8 F 05/09/23 15:28 Pulse Rate 53 L 05/09/23 18:46 Respiratory Rate 14 05/09/23 18:46 Blood Pressure 174/73 H 05/09/23 18:46 Pulse Oximetry 96 05/09/23 18:46 Oxygen Delivery Method Room Air 05/09/23 15:56 MDM - Chest Pain MDM Narrative Medical decision making narrative: 77-year-old female presents emergency room by rodolfo with chief complaint of chest pain. Patient was doing dishes and folding laundry at home today when she developed the chest pain pressure. No significant history of high in the past. Patient does have a history of syncopal events and hypertension. She denied any radiation of pain nausea vomiting or sweating. Her was there. He witnessed the event. She states she had chest pain for about 5-10 minutes. No radiation of the chest pain. called squad because she did not have relief of the pain. Patient's alert and oriented upon arrival here to the emergency room. No acute distress and chest pain had resolved. Patient was not given any medications and squad or took any medication today to help relieve the chest pain. She does not take a baby aspirin daily. She presents emergency room by rodolfo with chief complaint of chest pain prior to arrival. She's had no chest pain while here in the emergency room. Two troponins were performed. Patient's cardiac score is three. Patient is alert and oriented this time. She had a slightly elevated blood pressure but she does take fosinopril. She denies any for lisinopril here will be discharged home. She'll take her blood pressure medication when she does return home. Reasons to return to the emergency room were discussed. at bedside. Patient is comfortable going home and she's had no chest pain here. Patient had no history of myocardial infarction in the past. Does have a history of hypertension. She also has a history of chronic obstructive pulmonary disease. Patient's vital signs are stable she is going to follow-up with Dr. Lezama her primary care physician in two days. Differential Diagnosis Differential diagnosis: Likely stable angina, atypical chest pain and chest pain Medical Records Data Attestation: I reviewed the patient's medical records. Lab Data Attestation: I reviewed the patient's lab results. Labs: Lab Results 05/09/23 05/09/23 Range/Units 16:03 18:00 WBC 8.4 (4.0-11.0) 10^3/uL RBC 4.80 (4.20-5.40) 10^6/uL Hgb 14.9 (12.0-16.0) g/dL Hct 43.6 (36.0-48.0) % MCV 90.8 (81.0-99.0) fL MCH 31.0 (26.7-34.0) pg MCHC 34.2 (29.9-35.2) g/dL RDW 12.9 (11.0-15.0) % Plt Count 306 (150-450) 10^3/uL MPV 9.6 (9.5-13.5) fL Neut % (Auto) 69.0 (43.0-75.0) % Lymph % (Auto) 21.1 (20.5-60.0) % [place] % (Auto) 7.6 (1.7-12.0) % Eos % (Auto) 1.4 (0.9-7.0) % Baso % (Auto) 0.7 (0.2-2.0) % Neut # (Auto) 5.8 (1.4-6.5) 10^3/uL Lymph # (Auto) 1.8 (1.2-3.8) 10^3/uL [place] # (Auto) 0.6 (0.3-0.8) 10^3/uL Eos # (Auto) 0.1 (0.0-0.7) 10^3/uL Baso # (Auto) 0.1 (0.0-0.1) 10^3/uL Abs Immat Gran (auto) 0.02 (0.00-0.03) 10^3/uL Imm/Tot Granulo (auto) 0.2 (0.0-0.5) % PT 9.5 (9.0-11.6) sec INR <0.93 APTT 27.3 (22.3-36.2) sec Sodium 144 (136-145) mmol/L Potassium 3.3 L (3.5-5.1) mmol/L Chloride 105 (98-107) mmol/L Carbon Dioxide 29.0 (21.0-32.0) mmol/L Anion Gap 13.3 BUN 18.0 (7.0-18.0) mg/dL Creatinine 0.88 (0.55-1.02) mg/dL Est GFR ( Amer) >60 (>=60) Est GFR (Non-Af Amer) >60 (>=60) BUN/Creatinine Ratio 20.5 Glucose 105 (74-106) mg/dL Calcium 8.9 (8.5-10.1) mg/dL Total Bilirubin 0.3 (0.2-1.0) mg/dL AST 13 L (15-37) U/L ALT 23 (14-59) U/L Alkaline Phosphatase 78 (46-116) U/L Troponin I High Sens 20.7 21.8 (4.0-51.3) pg/mL NT-Pro-B Natriuret Pep 113.0 (<=1800.0) pg/mL Total Protein 7.2 (6.4-8.2) g/dL Albumin 3.8 (3.4-5.0) g/dL Globulin 3.4 g/dL Albumin/Globulin Ratio 1.1 Imaging Data Chest x-ray: Radiologist's impression: Patient Name: JASIEL ROOT MRN: [id number] date: 1945 Sex: F Assigned Patient Location: Current Patient Location: ER Accession/Order Number: [id number] Exam Date: 05/09/2023 16:15 Report Date: 05/09/2023 16:36 At the request of: SANDRA JONES Procedure: XR chest 1V EXAM: CHEST 1 VIEW HISTORY: chest pain TECHNIQUE: Chest, one view. COMPARISON: None. FINDINGS: Lungs are hyperinflated and clear. No focal consolidation, pleural effusion, or pneumothorax. Pulmonary vasculature is within normal limits. Cardiomediastinal silhouette is upper limits of normal to borderline enlarged. There is thoracolumbar scoliosis. IMPRESSION: 1. Hyperinflated and clear lungs without acute cardiopulmonary disease. 2. Upper limits of normal to borderline enlarged heart size. Electronically authenticated by: SUMAN WAGONER Date: 05/09/2023 16:36 ECG Data Attestation: I personally reviewed and interpreted this ECG as follows: Interpretation: 1528 Into sinus rhythm with a rate of 61 bpm MT interval 130 ms QRS duration [address] elevation or depression Repeat EKG [id number] normal sinus rhythm with a rate of fifty-two beats reddened no ectopy no ST elevation or depression MT interval 106 ms QRS duration 80 ms no STEMI Heart Score History: Slightly/Non-Suspicious ECG: Normal Age: >65 years Risk Factors: 1 or 2 Risk Factors Troponin: <Normal Limit Total Heart Score Recommendations & Risks:: 3 Discharge Plan Discharge Chief Complaint: Chest Pain Clinical Impression: Chest pain Patient Disposition: Home, Self-Care Time of Disposition Decision: 18:43 Condition: Good Prescriptions / Home Meds: No Action albuterol sulfate 90 mcg/actuation HFA aerosol inhaler 2 puff INHALATION Q4H PRN (Reason: shortness of breath or wheezing) lisinopril-hydrochlorothiazide 10-12.5 mg tablet 1 tab PO DAILY nortriptyline 10 mg capsule 10 mg PO BEDTIME budesonide-formoterol [Symbicort] 80-4.5 mcg/actuation HFA aerosol inhaler 2 puff INHALATION Q12H Instructions: Chest Pain (ED) Stand Alone Forms: Portal Instructions Referrals: SRINIVASAN LEZAMA [Primary Care Provider] - 05/12/23 (follow up friday) Discharge Date/Time: 05/09/23 19:02 Documented by User: Aarti Brito MD 05/09/23 21:09 HPI - Chest Pain General Chief Complaint: Chest Pain Stated Complaint: CHEST PAIN Time Seen by Provider: 05/09/23 15:42 Related Data Home Medications Medication Instructions Recorded Confirmed albuterol sulfate 90 mcg/actuation 2 puff inhalation Q4H PRN 03/19/23 03/19/23 aerosol inhaler shortness of breath or wheezing budesonide-formoterol HFA 80 2 puff inhalation Q12H 03/19/23 03/19/23 mcg-4.5 mcg/actuation aerosol inhaler (Symbicort) lisinopril 10 1 tab PO DAILY 03/19/23 03/19/23 mg-hydrochlorothiazide 12.5 mg tablet nortriptyline 10 mg capsule 10 mg PO BEDTIME 03/19/23 03/19/23 Allergies Allergy/AdvReac Type Severity Reaction Status Date / Time No Known Drug Allergies Allergy Verified 03/21/23 03:04 PFSH [facility] Social History Smoking status: Never smoker Exam Constitutional Vital Signs, click to edit/add: Last Vital Signs Temp 98.8 F 05/09/23 15:28 Pulse 53 L 05/09/23 18:46 Resp 14 05/09/23 18:46 BP 174/73 H 05/09/23 18:46 Pulse Ox 96 05/09/23 18:46 O2 Del Method Room Air 05/09/23 15:56 Course Vital Signs Vital signs: Vital Signs Temperature 98.8 F 05/09/23 15:28 Pulse Rate 62 05/09/23 15:28 Respiratory Rate 18 05/09/23 15:28 Pulse Oximetry 98 05/09/23 15:28 Oxygen Delivery Method Room Air 05/09/23 15:28 Temperature 98.8 F 05/09/23 15:28 Pulse Rate 53 L 05/09/23 18:46 Respiratory Rate 14 05/09/23 18:46 Blood Pressure 174/73 H 05/09/23 18:46 Pulse Oximetry 96 05/09/23 18:46 Oxygen Delivery Method Room Air 05/09/23 15:56 MDM - Chest Pain MDM Narrative Medical decision making narrative: 77-year-old female presents emergency room by rodolfo with chief complaint of chest pain. Patient was doing dishes and folding laundry at home today when she developed the chest pain pressure. No significant history of high in the past. Patient does have a history of syncopal events and hypertension. She denied any radiation of pain nausea vomiting or sweating. Her was there. He witnessed the event. She states she had chest pain for about 5-10 minutes. No radiation of the chest pain. called squad because she did not have relief of the pain. Patient's alert and oriented upon arrival here to the emergency room. No acute distress and chest pain had resolved. Patient was not given any medications and squad or took any medication today to help relieve the chest pain. She does not take a baby aspirin daily. She presents emergency room by squad with chief complaint of chest pain prior to arrival. She's had no chest pain while here in the emergency room. Two troponins were performed. Patient's cardiac score is three. Patient is alert and oriented this time. She had a slightly elevated blood pressure but she does take fosinopril. She denies any for lisinopril here will be discharged home. She'll take her blood pressure medication when she does return home. Reasons to return to the emergency room were discussed. at bedside. Patient is comfortable going home and she's had no chest pain here. Patient had no history of myocardial infarction in the past. Does have a history of hypertension. She also has a history of chronic obstructive pulmonary disease. Patient's vital signs are stable she is going to follow-up with Dr. Lezama her primary care physician in two days. Attending physician attestation I have reviewed the mid-level documentation, agree with the documentation, medical decision making and treatment plan as outlined by the mid-level provider. Lab Data Labs: Lab Results 05/09/23 05/09/23 Range/Units 16:03 18:00 WBC 8.4 (4.0-11.0) 10^3/uL RBC 4.80 (4.20-5.40) 10^6/uL Hgb 14.9 (12.0-16.0) g/dL Hct 43.6 (36.0-48.0) % MCV 90.8 (81.0-99.0) fL MCH 31.0 (26.7-34.0) pg MCHC 34.2 (29.9-35.2) g/dL RDW 12.9 (11.0-15.0) % Plt Count 306 (150-450) 10^3/uL MPV 9.6 (9.5-13.5) fL Neut % (Auto) 69.0 (43.0-75.0) % Lymph % (Auto) 21.1 (20.5-60.0) % [place] % (Auto) 7.6 (1.7-12.0) % Eos % (Auto) 1.4 (0.9-7.0) % Baso % (Auto) 0.7 (0.2-2.0) % Neut # (Auto) 5.8 (1.4-6.5) 10^3/uL Lymph # (Auto) 1.8 (1.2-3.8) 10^3/uL [place] # (Auto) 0.6 (0.3-0.8) 10^3/uL Eos # (Auto) 0.1 (0.0-0.7) 10^3/uL Baso # (Auto) 0.1 (0.0-0.1) 10^3/uL Abs Immat Gran (auto) 0.02 (0.00-0.03) 10^3/uL Imm/Tot Granulo (auto) 0.2 (0.0-0.5) % PT 9.5 (9.0-11.6) sec INR <0.93 APTT 27.3 (22.3-36.2) sec Sodium 144 (136-145) mmol/L Potassium 3.3 L (3.5-5.1) mmol/L Chloride 105 (98-107) mmol/L Carbon Dioxide 29.0 (21.0-32.0) mmol/L Anion Gap 13.3 BUN 18.0 (7.0-18.0) mg/dL Creatinine 0.88 (0.55-1.02) mg/dL Est GFR ( Amer) >60 (>=60) Est GFR (Non-Af Amer) >60 (>=60) BUN/Creatinine Ratio 20.5 Glucose 105 (74-106) mg/dL Calcium 8.9 (8.5-10.1) mg/dL Total Bilirubin 0.3 (0.2-1.0) mg/dL AST 13 L (15-37) U/L ALT 23 (14-59) U/L Alkaline Phosphatase 78 (46-116) U/L Troponin I High Sens 20.7 21.8 (4.0-51.3) pg/mL NT-Pro-B Natriuret Pep 113.0 (<=1800.0) pg/mL Total Protein 7.2 (6.4-8.2) g/dL Albumin 3.8 (3.4-5.0) g/dL Globulin 3.4 g/dL Albumin/Globulin Ratio 1.1 Heart Score Total Heart Score Recommendations & Risks:: 3 Discharge Plan Discharge Chief Complaint: Chest Pain Clinical Impression: Chest pain Patient Disposition: Home, Self-Care Time of Disposition Decision: 18:43 Condition: Good Prescriptions / Home Meds: No Action albuterol sulfate 90 mcg/actuation HFA aerosol inhaler 2 puff INHALATION Q4H PRN (Reason: shortness of breath or wheezing) lisinopril-hydrochlorothiazide 10-12.5 mg tablet 1 tab PO DAILY nortriptyline 10 mg capsule 10 mg PO BEDTIME budesonide-formoterol [Symbicort] 80-4.5 mcg/actuation HFA aerosol inhaler 2 puff INHALATION Q12H Instructions: Chest Pain (ED) Stand Alone Forms: Portal Instructions Referrals: SRINIVASAN LEZAMA [Primary Care Provider] - 05/12/23 (follow up friday) Discharge Date/Time: 05/09/23 19:02
[2023-05-09 18:37] LABS: Troponin I High Sensitivity 21.8 pg/mL (4.0-51.3)
--- NOTE | 2023-05-09 18:43 | ECG_ITS ---
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
== END 2023-05-09 19:02 | disposition home or self-care (01) ==
PROVIDERS: Physician Assistant; Emergency Provider Emergency Medicine; PCP Family Medicine
DX: R07.9 Chest pain, unspecified (principal); I10 Essential (primary) hypertension; J44.9 Chronic obstructive pulmonary disease, unspecified; Z79.899 Other long term (current) drug therapy
CPT/HCPCS: 36415; 71045; 80053; 83880; 84484; 85025; 85610; 85730; 93005; 99285

== ENCOUNTER 2023-08-01 10:24 | Outpatient (OUT) | payer MEDICARE, SELFPAY ==
--- NOTE | 2023-08-01 10:36 | XR_ITS ---
[address] [address] Patient Name: JASIEL ROOT MRN: [id number] date: 1945 Sex: F Assigned Patient Location: [facility] Current Patient Location: [facility] Accession/Order Number: [id number] Exam Date: 08/01/2023 10:45 Report Date: 08/01/2023 11:05 At the request of: SRINIVASAN LEZAMA Procedure: XR DEXA axial skeleton EXAMINATION: XR DEXA axial skeleton HISTORY: Age Related Osteoporosis Z00.01 COMPARISON: No relevant comparison available. TECHNIQUE: Dual-energy X-ray absorptiometry (DXA) was performed. FINDINGS: SPINE ANALYSIS: Average bone mineral density is 1.071 g/cm2. T-score (standard deviation relative to young adult mean): -0.9 . HIP ANALYSIS: Lowest bone mineral density is within the right femoral neck, 0.834 g/cm2. T-score (standard deviation relative to young adult mean): -1.5 . XR/XR DEXA axial skeleton IMPRESSION: [employer] Classification: Osteopenia - Moderate Fracture Risk Electronically authenticated by: SHIRA PAREDES Date: 08/01/2023 11:05
== END 2023-08-01 10:25 | disposition home or self-care (01) ==
LOC: RAD 10:24
PROVIDERS: PCP Family Medicine; Visit Provider Family Medicine
DX: M81.0 Age-related osteoporosis without current pathological fracture (principal); Z00.01 Encounter for general adult medical examination with abnormal findings; M85.80 Other specified disorders of bone density and structure, unspecified site
CPT/HCPCS: 77080

== ENCOUNTER 2023-09-03 01:08 | Observation (INO) | payer MEDICARE, SELFPAY ==
[2023-09-03] VITALS (19 sets, daily range): BP systolic 133–165; BP diastolic 45–77; PULSE 55–87; RESP 16–18; TEMP 36.6–36.8; O2SAT 96–99; BMI 20.4; BMI 21.5
--- NOTE | 2023-09-03 01:12 | ED.SYNCOPE1 ---
HPI - Syncope General Chief Complaint: Syncope Stated Complaint: DIZZY Time Seen by Provider: 09/03/23 01:10 History of Present Illness HPI narrative: This 78-year-old female is brought to the emergency department by EMS accompanied by her . The patient's is the chief historian at her request. He states that he and the patient have been traveling all day from [place] with a spend the holidays. At one point they had gotten out to have lunch and she tripped over a curb and injured her right foot. She was seen in the emergency department at that time and x-rays were done and she was told that she has a small bone chip in her right foot but nothing that needed surgery. The patient and her got home around 11:30 tonight and were unloading the car and starting to do laundry. The patient was sitting down at the kitchen table when she put her head down and told her that she had a headache. She then started moving her finger in a circular fashion and he asked her what she was doing. She didn't really respond and at that time became pale and unresponsive and started passing out. He was able to lower her to the ground but she did strike her head from approximately distance of 3 inches. He states that she was unresponsive for approximately one to 2 minutes. He was then able to get her up and took her into an easy chair in the living room and called EMS. She was somewhat confused for approximately 5-10 minutes and upon EMS arriving she became more alert. At this time the patient denies a headache. She denies any nausea or vomiting. She has no focal weakness numbness or tingling. She is amnestic to the events of this evening but recalls the drive home. The patient and her have not eaten since around 4 in the afternoon. She denies any abdominal pain or back pain. She denies any blurred vision. She has not had any slurred speech. She does have a history of dizziness that has been seen at [facility] for approximately 1-1/2 years for a dizzy workup. She has not passed out in the past according to the patient or her . Related Data Home Medications Medication Instructions Recorded Confirmed albuterol sulfate 90 mcg/actuation 2 puff inhalation Q4H PRN 03/19/23 03/19/23 aerosol inhaler shortness of breath or wheezing budesonide-formoterol HFA 80 2 puff inhalation Q12H 03/19/23 03/19/23 mcg-4.5 mcg/actuation aerosol inhaler (Symbicort) lisinopril 10 1 tab PO DAILY 03/19/23 03/19/23 mg-hydrochlorothiazide 12.5 mg tablet nortriptyline 10 mg capsule 10 mg PO BEDTIME 03/19/23 03/19/23 hydroxyzine HCl 10 mg tablet 10 mg PO BID PRN anxiety 09/03/23 09/03/23 Allergies Allergy/AdvReac Type Severity Reaction Status Date / Time No Known Drug Allergies Allergy Verified 03/21/23 03:04 Review of Systems ROS Status of ROS 10 or more systems reviewed and unremarkable except as noted in history and below [facility] Social History Smoking status: Never smoker Exam Narrative Exam Narrative: Nurses note and vital signs reviewed and patient is not hypoxic.Blood pressure is mildly elevated at 146/65 General: The patient appears well and in no apparent distress. Patient is resting comfortably on cart. GCS 15, no distress noted Skin: Warm, dry, no pallor noted. There is no rash noted. Head: Normocephalic, atraumatic Eye: Normal conjunctiva, no drainage, EOMI. PERRL. Vision is grossly intact Ears, Nose, Mouth, and Throat: oral mucosa is moist. Nares patent. Neck: Supple, no meningeal signs, no pulsatile masses, no apprec bruits Cardiovascular: Regular Rate and Rhythm S1S2, pulses are brisk and equal bilaterally Respiratory: Patient is in no distress, no accessory muscle use, lungs are clear to auscultation, no wheezing, rales or rhonchi Back: non-tender, no CVA tenderness bilaterally to percussion. GI: Normal bowel sounds, no tenderness to palpation, no masses appreciated. No rebound, guarding, or rigidity noted. 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, negative pronator drift, positive rapid alternating hand movements Psychiatric: Cooperative Constitutional Vital Signs, click to edit/add: Last Vital Signs Temp 97.8 F 09/03/23 01:11 Pulse 63 09/03/23 01:11 Resp 16 09/03/23 01:11 BP 133/54 09/03/23 05:30 Pulse Ox 99 09/03/23 01:41 O2 Del Method Room Air 09/03/23 01:41 Course Vital Signs Vital signs: Vital Signs Blood Pressure 146/65 H 09/03/23 01:10 Temperature 97.8 F 09/03/23 01:11 Pulse Rate 63 09/03/23 01:11 Respiratory Rate 16 09/03/23 01:11 Blood Pressure 133/54 09/03/23 05:30 Pulse Oximetry 99 09/03/23 01:41 Oxygen Delivery Method Room Air 09/03/23 01:41 MDM - Syncope MDM Narrative Medical decision making narrative: 78-year-old female with a history of dizziness for greater than 1-1/2 years who has been evaluated at [facility] for the dizziness presents for evaluation via EMS after she had a syncopal event at home. The patient and her traveled from [facility] earlier today with a were visiting their son and family over the holiday. The left their son's home in [place] early this morning and drove all day back to [place]. They had to stop at one point and the patient fell and injured her right foot. She was seen in the emergency department had an x-ray done that showed a chip fracture and she was placed in a splint. After getting home this evening and unpacking the car the patient sat down at the kitchen table, she complained of a headache and then passed out. Her was able to lower her to the floor and she did strike her head but only from a distance of approximately 3 inches according to him. He states that she was unresponsive for 1-2 minutes and then started coming around and he was able to get her into a chair. She was still somewhat confused after 5-10 minutes. EMS was called and she was coming around by the time EMS got there. Upon arrival she was taken to room 7 and evaluated. EKG performed upon arrival was a sinus rhythm at 63 bpm. She was placed on a cardiac/vascular sonographer. She has been stable with some degree of bradycardia in the 50s. CT scan of the brain was negative for acute findings but does show chronic changes and volume loss with the questionable indicating hydrocephalus. This was apparently seen in the prior CT scan as well. She was medicated with IV fluids. She had no complaints of pain in the ED including a headache, neck or back pain, chest pain or SOB. Her NIH stroke scale is zero. He has a normal white count and hemoglobin. Her electrolytes are normal with the exception of a potassium of 3.2 and a mild elevation in her creatinine at 1.17. She was given oral potassium supplementation in the emergency department. She has a normal troponin of 28.2. Delta troponin and repeat lactic acid were ordered. Delta troponin is normal at 27.4 D dimer was elevated at 1.39 and CTA of the chest was ordered. Lactic acid was minimally elevated at 2.1 and repeated after IVF. Repeat lactic acid is 1.3. After the CTA chest, her requested to leave because he is tired. The patient was then given a book and is resting comfortably in the ED. I explained to her , that I intended to admit her, at least for observation and he could go home. We will call him if the disposition changes or she requires transfer to a higher level of care. CTA of the chest is negative for pulmonary embolism does show mild atherosclerotic plaque along the thoracic and proximal abdominal aorta with no aneurysm or dissection of the thoracic aorta. There are no infiltrates. There is moderate irregular pleural-based parenchymal scarring at both lung apices with a 0.8 cm noncalcified pleural based nodule in the lateral right upper chest. There are no pathologically enlarged lymph nodes. There is also mild diffuse circumferential thickening of the esophageal wall which can be associated with esophagitis or sequelae of chronic GERD reflux. The patient recalled after a period of time in the ER that she does occasionally get headaches that come and go quickly. She remembers the headache that she had last night after getting home from the trip to [place]. She has also had carotid duplex studies done at [facility] but states that she is certain that they only scanned the right side of her neck at that time. The case was discussed with Dr Burton and she is accepted for admission, med/surg, observation status with telemetry Medical Records Medical records narrative: The [address] [address] [address] Scan Report Signed Patient: JASIEL ROOT MR#: [id number] : 1945 Acct:[id number] Age/Sex: 78 / F ADM Date: 09/03/23 Loc: ER Attending Dr: Ordering Physician: Gita Maurer Date of Service: 09/03/23 Procedure(s): CT head/brain wo con Accession Number(s): [id number] cc: SRINIVASAN LEZAMA ~ The [place] [id number] Patient Name: JASIEL ROOT MRN: [id number]:[id number] date: 1945 Sex: F Assigned Patient Location: ER Current Patient Location: ER Accession/Order Number: [id number] Exam Date: 09/03/2023 01:55 Report Date: 09/03/2023 02:17 At the request of: GITA MAURER Procedure: CT head/brain wo con INDICATION: 78 years old; Female. Syncope. TECHNIQUE: CT Head (ax/cor/sag reformats). Ionizing radiation dose reduced via iterative reconstruction/FBP blend and body size kV/mA adjustment. Comparison: Head CT dated 03/19/2023. FINDINGS: POSTOPERATIVE CHANGES: None. BRAIN PARENCHYMA: No focal lesions. No mass effect. No midline shift or herniation. No intraparenchymal or extra-axial hemorrhage. Normal romo/white differentiation. VENTRICLES/EXTRA-AXIAL SPACES: Enlarged, consistent with atrophy. The ventricular system is enlarged out of proportion the size the cortical sulci. This is unchanged from the prior study. The presence of atrophy +/- communicating hydrocephalus is not excluded. SINUSES/MASTOIDS: The visualized sinuses are clear. Maxillary sinuses are not entirely visible in this routine CT the head. Mastoids and middle ears are clear. MSK: No displaced or depressed calvarial fracture. OTHER: No hyperdense intraluminal thrombus. CT/CT head/brain wo con IMPRESSION: 1. No acute intracranial abnormality. No hemorrhage or mass effect. 2. Atrophy +/- communicating hydrocephalus. The appearance of ventricles is unchanged as compared to [place] [address] CT Scan Report Signed Patient: JASIEL ROOT MR#: [id number] : 1945 Acct:[id number] Age/Sex: 78 / F ADM Date: 09/03/23 Loc: ER Attending Dr: Ordering Physician: Gita Maurer Date of Service: 09/03/23 Procedure(s): CT angio chest Accession Number(s): [id number] cc: SRINIVASAN LEZAMA ~ The [address] [address] Patient Name: JASIEL ROOT MRN: [facility]:[id number] date: 1945 Sex: F Assigned Patient Location: ER Current Patient Location: ER Accession/Order Number: [id number] Exam Date: 09/03/2023 03:11 Report Date: 09/03/2023 04:40 At the request of: GITA MAURER Procedure: CT angio chest EXAM: CT angio chest HISTORY: Syncope; elevated d dimer. COMPARISON: None. TECHNIQUE: Routine CTA chest with intravenous contrast. FINDINGS: There is contrast within the pulmonary arteries. There is no pulmonary embolus. The pulmonary trunk is normal size. The heart size is upper limits normal. There is no pericardial fluid or thickening. There is mild atheromatous plaque along the thoracic and proximal abdominal aorta. There is mild atheromatous plaque at the origin of the left subclavian artery. There is no aneurysm or dissection of the thoracic aorta. There is no consolidation or infiltrate. There is no pleural effusion. There is moderate irregular pleural-based parenchymal scarring at both lung apices. There is a 0.8 cm noncalcified pleural-based nodule lateral right upper chest (series 4 image 29) which may be associated with the pleural parenchymal scarring however a short interval follow-up CT examination is recommended to confirm stability. There is no pneumothorax. There are no pathologically enlarged axillary, mediastinal or hilar lymph nodes. The trachea is unremarkable. There is mild diffuse circumferential thickening of the esophageal wall which can be associated with an esophagitis or sequelae of chronic gastroesophageal reflux. The thyroid gland is unremarkable. There are calcified granuloma scattered within the spleen. There is retained lobulation along the contour of both kidneys. There is mild S-shaped scoliosis of the thoracic spine. There are mild discogenic degenerative changes at numerous levels along the spine. CT/CT angio chest IMPRESSION: There is no pulmonary embolus. There is mild atherosclerotic plaque along the thoracic and proximal abdominal aorta. There is no aneurysm or dissection of the thoracic aorta. There is no consolidation or infiltrates. There is moderate irregular pleural-based parenchymal scarring at both lung apices. There is a 0.8 cm noncalcified pleural-based nodule lateral right upper chest (series 4 image 29) which may be associated with the pleural parenchymal scarring however a CT examination of the chest in 3 months is recommended to confirm stability. There are no pathologically enlarged lymph nodes. Mild diffuse circumferential thickening of the esophageal wall which can be associated with an esophagitis or sequelae of chronic gastroesophageal reflux. Few additional findings as described in the body the report. Electronically authenticated by: ASTRID GARRETT Date: 09/03/2023 04:40 Lab Data Labs: Lab Results 09/03/23 09/03/23 09/03/23 Range/Units 01:36 03:52 04:30 WBC 9.1 (4.0-11.0) 10^3/uL RBC 4.77 (4.20-5.40) 10^6/uL Hgb 14.5 (12.0-16.0) g/dL Hct 44.1 (36.0-48.0) % MCV 92.5 (81.0-99.0) fL MCH 30.4 (26.7-34.0) pg MCHC 32.9 (29.9-35.2) g/dL RDW 12.4 (11.0-15.0) % Plt Count 321 (150-450) 10^3/uL MPV 9.8 (9.5-13.5) fL Neut % (Auto) 67.1 (43.0-75.0) % Lymph % (Auto) 19.5 L (20.5-60.0) % [place] % (Auto) 9.7 (1.7-12.0) % Eos % (Auto) 2.6 (0.9-7.0) % Baso % (Auto) 0.8 (0.2-2.0) % Neut # (Auto) 6.1 (1.4-6.5) 10^3/uL Lymph # (Auto) 1.8 (1.2-3.8) 10^3/uL [place] # (Auto) 0.9 H (0.3-0.8) 10^3/uL Eos # (Auto) 0.2 (0.0-0.7) 10^3/uL Baso # (Auto) 0.1 (0.0-0.1) 10^3/uL Abs Immat Gran (auto) 0.03 (0.00-0.03) 10^3/uL Imm/Tot Granulo (auto) 0.3 (0.0-0.5) % D-Dimer 1.38 H* (<=0.59) mg/L FEU Sodium 142 (136-145) mmol/L Potassium 3.2 L (3.5-5.1) mmol/L Chloride 103 (98-107) mmol/L Carbon Dioxide 27.7 (21.0-32.0) mmol/L Anion Gap 14.5 BUN 19.0 H (7.0-18.0) mg/dL Creatinine 1.17 H (0.55-1.02) mg/dL Est GFR ( Amer) 54 L (>=60) Est GFR (Non-Af Amer) 45 L (>=60) BUN/Creatinine Ratio 16.2 Glucose 131 H (74-106) mg/dL Lactate 2.1 H 1.3 (0.4-2.0) mmol/L Calcium 9.7 (8.5-10.1) mg/dL Total Bilirubin 0.4 (0.2-1.0) mg/dL AST 19 (15-37) U/L ALT 28 (14-59) U/L Alkaline Phosphatase 80 (46-116) U/L Troponin I High Sens 28.2 27.4 (4.0-51.3) pg/mL Total Protein 7.2 (6.4-8.2) g/dL Albumin 3.6 (3.4-5.0) g/dL Globulin 3.6 g/dL Albumin/Globulin Ratio 1.0 Urine Color Lt. yellow (YELLOW) Urine Clarity Clear (CLEAR) Urine pH 5.5 (5.0-9.0) Ur Specific [place] <=1.005 A (1.005-1.025) Urine Protein Negative (NEG/TRACE) mg/dL Urine Glucose (UA) Negative (NEGATIVE) mg/dL Urine Ketones Negative (NEGATIVE) mg/dL Urine Occult Blood Negative (NEGATIVE) Urine Nitrite Negative (NEGATIVE) Urine Bilirubin Negative (NEGATIVE) Urine Urobilinogen 0.2 (0.2-1.0) EU/dL Ur Leukocyte Esterase Small A (NEGATIVE) Urine RBC 0-2 (0-2) #/HPF Urine WBC 0-2 A (NONE SEEN) #/HPF Ur Squamous Epith Cells Rare (NONE/RARE) #/LPF Ur Transition Epith Cell Rare A (NONE SEEN) #/LPF Urine Crystals None seen (None Seen) #/HPF Urine Bacteria None seen (NONE SEEN) #/HPF Urine Casts Seen A (NONE SEEN) #/LPF Hyaline Casts Few Urine Mucus None seen (NONE SEEN) ECG Data Attestation: I personally reviewed and interpreted this ECG as follows: (Sinus rhythm at 62 beats for minute, right axis deviation, normal intervals, no acute ST segment elevation or T-wave inversion) Critical Care Time Critical Care Time Total Critical Care Time: 35 Attestation: Pt was seen and evaluated and treated For syncope Discharge Plan Discharge Chief Complaint: Syncope Clinical Impression: Dehydration, mild Prescriptions / Home Meds: No Action albuterol sulfate 90 mcg/actuation HFA aerosol inhaler 2 puff INHALATION Q4H PRN (Reason: shortness of breath or wheezing) lisinopril-hydrochlorothiazide 10-12.5 mg tablet 1 tab PO DAILY nortriptyline 10 mg capsule 10 mg PO BEDTIME budesonide-formoterol [Symbicort] 80-4.5 mcg/actuation HFA aerosol inhaler 2 puff INHALATION Q12H hydroxyzine HCl 10 mg tablet 10 mg PO BID PRN (Reason: anxiety) Referrals: SRINIVASAN LEZAMA [Primary Care Provider] - 1 week
--- NOTE | 2023-09-03 01:13 | ECG_ITS ---
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
--- OUTSIDE RECORDS SUMMARY | 2023-09-03 01:14 | XMS_ITS | CCD ---
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 Name Role Phone Juliano Sharma MD Primary Care Provider SHARMA ., DR JULIANO Youngblood Primary Care Unavailable SHARMA ., DR JULIANO Youngblood Admitting Unavailable SHARMA ., DR JULIANO Youngblood Attending Unavailable SHARMA ., DR JULIANO Youngblood Consulting Unavailable SHARMA ., DR JULIANO Youngblood Admitting Unavailable SHARMA ., DR JULIANO Youngblood Attending Unavailable SHARMA ., DR JULIANO Youngblood Consulting Unavailable SHARMA ., DR JULIANO Youngblood Primary Care Unavailable SHARMA ., DR JULIANO Youngblood Admitting Unavailable SHARMA ., DR JULIANO Youngblood Attending Unavailable SHARMA ., DR JULIANO Youngblood Consulting Unavailable SHARMA ., DR JULIANO Youngblood Primary Care Unavailable SHARMA ., DR JULIANO Youngblood Primary Care Unavailable SHARMA ., DR JULIANO Youngblood Consulting Unavailable SHARMA ., DR JULIANO Youngblood Admitting Unavailable SHARMA ., DR JULIANO Youngblood Attending Unavailable MISC, DR SOLER Admitting Unavailable HAMDEN, DR AN Hyatt Consulting Unavailable SHARMA ., DR JULIANO Youngblood Primary Care Unavailable MISC, DR SOLER Attending Unavailable MISC, DR SOLER Consulting Unavailable SHARMA ., DR JULIANO Youngblood Admitting Unavailable SHARMA ., DR JULIANO Youngblood Attending Unavailable SHARMA ., DR JULIANO Youngblood Primary Care Unavailable ROBERT .MANA Consulting Unavailable PAY ., DR STEWARD Admitting Unavailable PAY ., DR STEWARD Attending Unavailable SHARMA ., DR JULIANO Youngblood Primary Care Unavailable SHARMA ., DR JULIANO Youngblood Primary Care Unavailable SHARMA ., DR JULIANO Youngblood Admitting Unavailable SHARMA ., DR JULIANO Youngblood Attending Unavailable SHARMA ., DR JULIANO Youngblood Consulting Unavailable Srinivasan Lezama MD Primary Care Provider [phone] RACHAEL CHANEY Referring Unavailable SRINIVASAN LEZAMA Primary Care Unavailable RACHAEL CHANEY Referring Unavailable SRINIVASAN LEZAMA Primary Care Unavailable WATTAR, YAIR R Referring Unavailable ROSS, SRINIVASAN E Primary Care Unavailable WATTAR, YAIR R Referring Unavailable ROSS, SRINIVASAN E Primary Care Unavailable WATTAR, YAIR R Attending Unavailable ROSS, SRINIVASAN E Primary Care Unavailable SESE, ISAAC T Attending Unavailable SESE, ISAAC T Referring Unavailable SHARMAJULIANO Primary Care Unavailable SESE, ISAAC T Referring Unavailable SHARMAJULIANO MAYWOOD Primary Care Unavailable SESE, ISAAC T Attending Unavailable SHARMA JULIANO MAYWOOD Primary Care Unavailable LAUREN MCCAULEY Attending Unavailable SHARMA, JULIANO MAYWOOD Primary Care Unavailable WATTAR, YAIR R Attending Unavailable ROSS, SRINIVASAN E Primary Care Unavailable SESE, ISAAC T Attending Unavailable SESE, ISAAC T Referring Unavailable ROSS, SRINIVASAN E Primary Care Unavailable Edith DOS SANTOS, Juliano meera Primary Care Provider [phone] HUYEN ISAAC T Referring Unavailable SHARMA, JULIANO DAY Primary Care Unavailable WATTAR, YAIR R Referring Unavailable LISE, SRINIVASAN E Primary Care Unavailable Lise Srinivasan E. Primary Care Physician [phone] Roxane eHller L Admitting Unavailable Arron, Roxane L Attending Unavailable Arron, Roxane L Admitting Unavailable Arron, Roxane L Attending Unavailable Lise, Srinivasan E. Attending Unavailable Lise, Srinivasan E. Admitting Unavailable Lise, Srinivasan E. Attending Unavailable Hermelinda Han Attending Unavaila ble Lise Srinivasan E. Referring Unavailable Lise, Srinivasan E. Attending Unavailable Lise, Srinivasan E. Attending Unavailable Lise, Srinivasan E. Attending Unavailable Arron, Roxane L Attending Unavailable Arron, Roxane L Attending Unavailable Arron, Roxane L Attending Unavailable Lise, Srinivasan E. Attending Unavailable Lise, Srinivasan E. Attending Unavailable SHARMAJULIANO CASTRO E Attending Unavailable Arron, Roxane L Attending Unavailable Lise, Srinivasan E. Attending Unavailable Ross, Srinivasan E. Attending Unavailable Allergies Allergy Classification Reported Allergen(s) Allergy Type Date of Onset Reaction(s) Facility (1 source) No Known Medication Allergies; 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: [No Known Medication Allergies] Propensity to adverse reactions (disorder) [facility] Repository Medications Current Medications Medication Drug Class(es) Dates Sig (Normalized) Sig (Original) Albuterol (Eqv-ProAir HFA) 90 mcg/inh inhalation aerosol (2 sources) Start: 3 take 2 puff(s) by inhalation every six hours Albuterol (Eqv-ProAir HFA) 90 mcg/inh inhalation aerosol 2 puff(s), Inhalation, q6hr, Refill(s) 0 Start Date: 11/20/22 Status: Ordered Amoxicillin (2 sources) Penicillin-class Antibacterial Start: 3 amoxicillin 2,000 mg, Oral, Once, PRN Other (see comment), 30 to 60 minutes prior to dental procedure, Refills(s) 0 Start Date: 07/23/23 Status: Ordered sugar-free cholestyramine resin 4000 mg powder for oral suspension (2 sources) Bile Acid Sequestrant Start: 3 take 4 g by mouth once daily, then take 2 g by mouth once daily Prevalite 4 g/5.5 g oral powder for reconstitution 4 gm, Oral, Daily, take 2gm daily until instructed otherwise, Refills(s) 0 Start Date: 11/20/22 Status: Ordered CoQ10 100 mg oral capsule (2 sources) Start: 3 CoQ10 100 mg oral capsule Refills(s) 0 Start Date: 01/21/23 Status: Ordered Hydrochlorothiazide / Lisinopril (2 sources) Thiazide Diuretic, Angiotensin Converting Enzyme Inhibitor Start: 3 hydrochlorothiazid e-lisinopril 12.5-10 mg, Oral, Daily, Refill(s) 0 Start Date: 07/23/23 Status: Ordered linaclotide 0.072 mg oral capsule (2 sources) Guanylate Cyclase-C Agonist Start: 3 take 1 capsule by mouth once daily Linzess 72 mcg oral capsule 72 mcg = 1 cap(s), Oral, Daily, # 90 cap(s), Refills(s) 1, Pharmacy: [facility]/pharmacy #[id number], 155, cm, 03/25/23 8:03:00 EDT, Height/Length Dosing, 50.1, kg, 03/25/23 8:03:00 EDT, Weight Dosing Start Date: 03/25/23 Status: Ordered lisinopril 10 mg oral tablet (7 sources) Angiotensin Converting Enzyme Inhibitor Start: 3 take 1 tablet by mouth once daily Prinivil 10 mg oral tablet 10 mg = 1 tab(s), Oral, Daily, Refills(s) 0 Start Date: 04/30/23 Status: Ordered Comment on above: Take 10 mg by mouth once daily. Multi Vitamin+ (2 sources) Start: 3 Multi Vitamin+ Refill(s) 0 Start Date: 01/21/23 Status: Ordered Multiple Vitamins with Zinc oral capsule (2 sources) Start: 3 Multiple Vitamins with Zinc oral capsule 1 cap(s), Oral, Daily, 60 cap(s), Refill(s) 0 Start Date: 01/21/23 Status: Ordered nortriptyline 10 mg oral capsule (1 source) Tricyclic Antidepressant Start: 3 End: 3 take 1 capsule by mouth once daily at bedtime nortriptyline (PAMELOR) 10 mg capsule Take 1 capsule by mouth daily at bedtime. 30 capsule 2 12/23/2022 03/23/2023 Active Comment on above: Take 1 capsule by [facility] daily at bedtime. perflutren lipid microspheres 1.3 mL in NaCl (PF) 0.9% 10 mL injection (DEFINITY) (3 sources) Start: 3 End: 4 perflutren lipid microspheres 1.3 mL in NaCl (PF) 0.9% 10 mL injection (DEFINITY) 125 ml sodium chloride 9 mg/ml prefilled syringe (3 sources) Start: 3 End: 4 sodium chloride 0.9 % (flush) 10 mL (BD POSIFLUSH) Symbicort 80/4.5 inhalation aerosol with adapter (2 sources) Start: 3 Symbicort 80/4.5 inhalation aerosol with adapter See Instructions, 30.6 EA, Refill(s) 3, INHALE 2 PUFFS BY MOUTH TWICE DAILY, [facility], 155, cm, 04/02/23 9:19:00 EDT, Height/Length Dosing, 71.7, kg, 04/02/23 9:19:00 EDT, Weight Dosing Start Date: 04/07/23 Status: Ordered topiramate 50 mg oral tablet (6 sources) Start: 3 End: 4 take 1 tablet by mouth once daily at bedtime topiramate (TOPAMAX) 50 mg tablet Take 1 tablet by mouth daily at bedtime. 30 tablet 2 06/12/2023 09/10/2023 Active Start: 03-25-2023 take 1 capsule by mo uth at bedtime topiramate 25 mg Tab 25 mg = 1 cap(s), Oral, Bedtime, Refills(s) 0 Start Date: 03/25/23 Status: Ordered Start: 03-24-2023 End: 06-22-2023 take 1 tablet by mouth once daily at bedtime topiramate (TOPAMAX) 25 mg tablet Take 1 tablet by mouth daily at bedtime. 30 tablet 2 03/24/2023 06/12/2023 Discontinued Comment on above: Take 1 tablet by jeramy th daily at bedtime. Vitamin B12 Methylcobalamin 5000 mcg sublingual tablet (2 sources) Start: 11-21-19 take 1 tablet under the tongue once daily Vitamin B12 Methylcobalamin 5000 mcg sublingual tablet 5,000 mcg = 1 tab(s), SubLingual, Daily, Refills(s) 0 Start Date: 11/20/22 Status: Ordered Benefiber (2 sources) Start: 04-30-20 Benefiber See Instructions, Refill(s) 0, uses guar gum orally by mouth Start Date: 04/30/23 Status: Ordered Completed/Discontinued Medications Medication Drug Class(es) Dates Sig (Normalized) Sig (Original) 200 actuat albuterol 0.09 mg/actuat metered dose inhaler (7 sources) beta2-Adrenergic Agonist Start: 07-02-2006 ALBUTEROL 90 MCG/ACTUATION AEROSOL INHALER as needed 0 0 07/02/2006 Active Comment on above: as needed alendronic acid 70 mg oral tablet (7 sources) Bisphosphonate Start: 07-02-2006 FOSAMAX 70 MG TAB weekly 0 0 07/02/2006 Active Comment on above: weekly ascorbic acid 1000 mg oral tablet (3 sources) Vitamin C take 1 tablet by mouth once daily Ascorbic Acid (VITAMIN C) 1,000 mg tablet Take 1,000 mg by mouth once daily. 0 Active Comment on above: Take 1,000 mg by jeramy th once daily. BENEFIBER, GUAR GUM, ORAL (3 sources) BENEFIBER, GUAR GUM, ORAL Take by mouth. 0 Active Comment on above: Take by mouth. Budesonide / formoterol (5 sources) Corticosteroid, beta2-Adrenergic Agonist take 2 puff(s) by inhalation twice daily budesonide-formot sara (SYMBICORT) 80-4.5 mcg/actuation inhaler Inhale 2 Puffs as instructed twice daily. 0 Active Comment on above: Inhale 2 Puffs as in structed twice daily. Calcium Carbonate / vitamin D3 (3 sources) calcium carbonate/vitamin D3 (CALTRATE-600 PLUS VITAMIN D3 ORAL) Take by mouth. 0 Active Comment on above: Take by mouth. estradiol 1 mg oral tablet (4 sources) Estrogen Start: 07-02-2006 End: 04-28-2023 ESTRACE 1 MG TAB weekly 0 0 07/02/2006 04/28/2023 Discontinued (Discontinued by Patient) Comment on above: weekly fsh/flx/prim/cur/juan r/om3,6,9 5 (OMEGA 3-6-9 FATTY ACIDS ORAL) (3 sources) fsh/flx/prim/cur / bor/om3,6,9 5 (OMEGA 3-6-9 FATTY ACIDS ORAL) Take by mouth. 0 Active Comment on above: Take by mouth. Lutein / zeaxanthin (3 sources) LUTEIN-ZEAXANTHI N ORAL Take by mouth. 0 Active Comment on above: Take by mouth. ubidecarenone 100 mg / vitamin e 5 unt oral capsule (3 sources) Coenzyme G07-Exrmthv E 100-5 mg-unit cap 2 gels Orally 0 Active Comment on above: 2 gels Orally vitamin b12 5 mg sublingual tablet (3 sources) Vitamin B12 cyanocobalamin, vitamin B-12, (VITAMIN B-12) 5,000 mcg subl Dissolve under the tongue. 0 Active Comment on above: Dissolve under the t ongue. Problems Active Problems Problem Classification Problem Date Documented Date Episodic/Chronic Administrative/social admission (2 sources) Stress 04-30-2023 Episodic Asthma (3 sources) Unspecified asthma, uncomplicated; 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: [Asthma] Onset: 05-10-20 22 01-21-2023 Chronic Disorders of lipid metabolism (5 sources) Pure hypercholesterolemia, unspecified; 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: [PURE HYPERCHOLESTEROLEMIA UNSPEC] Onset: 05-31-20 Chronic Essential hypertension (3 sources) Essential (primary) hypertension; 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: [Essential hypertension] Onset: 05-31-20 22 04-30-2023 Chronic Headache; including migraine (1 source) Headache; 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: [Head pains] Episodic Late effects of cerebrovascular disease (2 sources) Ataxia as sequela of cerebrovascular disease; 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] Onset: 01-03-20 Chronic Malaise and fatigue (5 sources) Other fatigue; 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: [OTHER FATIGUE] Onset: 10-29-19 Episodic Nonspecific chest pain (5 sources) Chest pain; 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: [Chest pain, unspecified] Onset: 06-11-2004-28-2023 Episodic Open wounds of head; neck; and trunk (2 sources) Facial laceration 03-25-2023 Episodic Osteoporosis (2 sources) Osteoporosis 01-21-2023 Chronic Other gastrointestinal disorders (2 sources) Irritable bowel syndrome characterized by constipation 02-17-2023 Chronic Other lower respiratory disease (3 sources) Dyspnea; 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: [Shortness of breath] 04-28-2023 Episodic Peripheral and visceral atherosclerosis (2 sources) Arteriosclerotic vascular disease 01-21-2023 Chronic Unclassified (2 sources) Body mass index 20-24 - normal 01-21-2023 Unclassified (2 sources) Non-smoker 01-21-2023 Past or Other Problems Problem Classification Problem Date Documented Da te Episodic/Chronic Cardiac dysrhythmias (1 source) Palpitations; 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: [PALPITATIONS] Onset: 06-13-2022 Episodic Conditions associated with dizziness or vertigo (12 sources) Dizziness; 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: [Dizziness and giddiness] Onset: 07-02-2022 Episodic E Codes: Struck by; against (1 source) Striking against or struck by other objects, initial encounter; 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: [STRIKING AGNST/STRUCK OTH OBJ INIT] Onset: 05-10-2022 Episodic Immunizations and screening for infectious disease (1 source) Encounter for immunization; 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: [ENCOUNTER FOR IMMUNIZATION] Onset: 05-10-2022 Episodic Open wounds of extremities (4 sources) Laceration without foreign body of left elbow, initial encounter; 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: [LACERATION W/O FB LT ELBOW INITIAL] Onset: 05-07-2022 Episodic Other aftercare (1 source) Other longterm (current) drug therapy; 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: [OTH LAND CLASSIFIER CURRENT DRUG THERAPY] Onset: 05-10-2022 Episodic Other screening for suspected conditions (not mental disorders or infectious disease) (4 sources) Encounter for screening mammogram for malignant neoplasm of breast; 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: [ENC SCR MAMMO MALIG NEOPLASM BREAST] Onset: 03-14-2022 Episodic Residual codes; unclassified (1 source) Family history of malignant neoplasm of breast; 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: [FAMILY HX MALIG NEOPLASM OF BREAST] Onset: 03-15-2022 Episodic Results Test Name Value Interpretation Reference Range Facil ity Family Medicine Office/Clini c Noteon 08-19-2023 Family Medicine Office/Clinic Note HPI Staff Dorie is a 78 year old female presenting for 3 month follow up. Pt would like to discuss DEXA results, positive for osteopenia, discuss medication options. Lab - 07/31 Potassium - Low at 3.1 Patient is here for follow up on hypertension. How often are you checking your blood pressure? Doesnt check BP at home What are your average readings? N/A, Not checking at home Yearly BMP: 07/31/23 flu: UTD questions/concerns: has something to discuss after leaves the room History of Present Illness Dorie Root is an 78-year-old female who presents today for a follow-up evaluation of constipation. She is accompanied by an adult male. The patient was presented with pharyngitis in the emergency department on Friday morning, 08/08/2023. She reported dysphagia and was administered erythromycin. She indicated that she was prescribed a steroid for her lower extremity, but she had not initiated the therapy. The patient reports that she has been experiencing constipation. She has been taking dietary fiber supplements, which have been beneficial. She reported having 4 bowel movements in the morning and 2 in the afternoon. If she has to travel, she does not take the supplements the night before. She sometimes goes 2 days in a row without a bowel movement, followed by severe abdominal pain 2 to 3 days later. She experienced episodes of vertigo 3 to 4 weeks ago. On 08/08/2023, she had vertigo. She went to the bathroom and had 2 bowel movements, which were melena. She stayed seated and had 2 more bowel movements. After flushing the toilet and remaining seated, she suddenly had diarrhea. She drinks at least 5 glasses of water daily. She denies any problems with her lower extremities. If she cannot have a bowel movement for more than 2 days, she becomes worried. She went 5 days without a bowel movement, and when she finally did, the pain was so intense that it was unbearable. She states it is impacting her quality of life. Review of Systems PHQ Score Initial Depression Screen Score: 1 SCORE Physical Exam Vitals & Measurements T: 37.1 ?C(Temporal Artery) HR: 64(Peripheral) RR: 16 BP: 132/70 SpO2: 99% HT: 62 in HT: 158 cm WT: 49.7 kg WT: 109.34 lb BMI: 19.91 General: alert, no acute distress Cardiovascular: regular rate and rhythm, normal peripheral perfusion Respiratory: Lungs CTA, respirations non labored Extremities: no deformity, no trauma Neurological: oriented x 4, LOC appropriate for age, CN II-XII intact, motor strength equal & normal bilaterally, speech normal Abdomen: soft, nontender, nondistended. Assessment/Plan Total time spent preparing for the encounter, evaluating and assessing the patient, documenting the visit, and ordering appropriate follow-up work was 45 minutes. 1. Peripheral arterial disease (I73.9: Peripheral vascular disease, unspecified) The patient does not have any symptoms of PAD. We will hold off on the aspirin at this time until we see what GI says about the irritable bowel syndrome with constipation and that black stools. I do believe the black stools are just from having been hard and not actually black because there is no acute or visible bleeding. We will conduct a test to measure his hemoglobin levels, as this has not been done yet 2. Stress (F43.9: Reaction to severe stress, unspecified) We will try hydroxyzine to see if this helps with some of the anxiety moving forward. 3. Primary hypertension (I10: Essential (primary) hypertension) Patient's blood pressure is at goal today. Continue as before. 4. Osteopenia (M85.80: Other specified disorders of bone density and structure, unspecified site) Continue calcium and vitamin D. 5. Irritable bowel syndrome with constipation (K58.1: Irritable bowel syndrome with constipation) We will send to a GI doctor for possible colonoscopy. 6. Nonsmoker (Z78.9: Other specified health status) Please continue not to smoke. 7. ASCVD (arteriosclerotic cardiovascular disease) (I25.10: Atherosclerotic heart disease of [place] coronary artery without angina pectoris) The patient is not on any statin medication. We will hold off on aspirin until we see what the colonoscopy shows. 8. Body mass index (BMI) of 19 or less in adult (Z68.1: Body mass index [BMI] 19.9 or less, adult) BMI education given. We will see the patient back in a month. ATTESTATION: Portions of this record may have been created with voice recognition artificial intelligence software, specifically [employer], [employer] and or madvertise. Substitutions may have occurred due to the inherent limitations of voice recognition and artificial intelligence software. Documentation services were performed after patient or guardian consented to allow [employer] to record this visit. JAIRON pulmonary disease specialist and provider reviewed before signing. JAIRON: Laina Tucker. Follow-up No qualifying data available Problem List/Past Medical History O (more content not included)... Normal [facility] Comment on above: Result Comment: Elec tronically Signed By: Srinivasan Lezama MD\.br\Date and Time Signed: 08/19/23 12:59 EST\.br\Electronically Co-Signed By: Laina Tucker\.br\Date and Time Co-Signed: 08/11/23 18:44 EST Ambulatory Visit Summaryon 1 10-12-2022 Ambulatory Visit Summary DORIE ROOT :1945 Visit Date:08/11/2023 Ambulatory Visit Instructions Your Diagnosis Peripheral arterial disease Stress Primary hypertension Osteopenia Irritable bowel syndrome with constipation Nonsmoker ASCVD (arteriosclerotic cardiovascular disease) Body mass index (BMI) of 19 or less in adult Your Care Team Attending Physician - Srinivasan Lezama MD Primary Care Physician - Srinivasan Lezama MD This Is Your Medications List hydrOXYzine (hydrOXYzine hydrochloride 10 mg Tab) Contact prescribing physician if questions or concerns albuterol (Albuterol (Eqv-ProAir HFA) 90 mcg/inh inhalation aerosol) amoxicillin budesonide-formotero l (Symbicort 80/4.5 inhalation aerosol with adapter) cholestyramine (Prevalite 4 g/5.5 g oral powder for reconstitution) hydrochlorothiazide- lisinopril linaclotide (Linzess 72 mcg oral capsule) methylcobalamin (Vitamin B12 Methylcobalamin 5000 mcg sublingual tablet) multivitamin with minerals (Multiple Vitamins with Zinc oral capsule) topiramate (topiramate 25 mg Tab) ubiquinone (CoQ10 100 mg oral capsule) wheat dextrin (Benefiber) Procedures Performed Colonoscopy (10/01/2021), Dilatation and curettage: routine. Discharge Vitals Temperature (Temporal Artery) 37.1 ?C Heart Rate (Peripheral) 64 Respiratory Rate 16 Blood Pressure 132/70 Height 158 cm Height 62 in Weight 49.7 kg Weight 109.34 lb BMI 19.91 What to do next Scheduled Follow-Up Appointments Friday 2:15 PM EST With: Lise DOS SANTOS, Srinivasan Milligan Where: [facility] [address] [place] [address]- \.br\ Medications\.br\ What How Much When Why Instructions\.br\ New hydrOXYzine (hydrOXYzine hydrochloride 10 mg Tab) 1 Tablets By Mouth 4 times a day as needed for for anxiety Pickup at [facility]/pharmacy #[id number]\.br\ Unchanged albuterol (Albuterol (Eqv-ProAir HFA) 90 mcg/ inh inhalation aerosol) 2 Puffs Inhalation Every 6 hours Contact prescribing physician if questions or concerns \.br\ Unchanged amoxicillin 2,000 Milligram By Mouth Once as needed for Other (see comment) 30 to 60 minutes prior to dental procedure Contact prescribing physician if questions or concerns \.br\ Unchanged budesonide-formote rol (Symbicort 80/ 4.5 inhalation aerosol with adapter) See instructions INHALE 2 PUFFS BY MOUTH TWICE DAILY Contact prescribing physician if questions or concerns \.br\ Unchanged cholestyramine (Prevalite 4 g/ 5.5 g oral powder for reconstitution) 4 Gram By Mouth Every day take 2gm daily until instructed otherwise Contact prescribing physician if questions or concerns \.br\ Unchanged hydrochlorothiazid e-lisinopril 12.5-10 mg By Mouth Every day Contact prescribing physician if questions or concerns \.br\ Unchanged linaclotide (Linzess 72 mcg oral capsule) 1 Capsules By Mouth Every day Irritable bowel syndrome with constipation BMI 21.0-21.9, adult Non-smoker Contact prescribing physician if questions or concerns \.br\ Unchanged methylcobalamin (Vitamin B12 Methylcobalamin 5000 mcg sublingual tablet) 1 Tablets Sublingual Every day Contact prescribing physician if questions or concerns \.br\ Unchanged multivitamin with minerals (Multiple Vitamins with Zinc oral capsule) 1 Capsules By Mouth Every day Contact prescribing physician if questions or concerns \.br\ Unchanged topiramate (topiramate 25 mg Tab) 2 Capsules By Mouth At bedtime Contact prescribing physician if questions or concerns \.br\ Unchanged ubiquinone (CoQ10 100 mg oral capsule) Contact prescribing physician if questions or concerns \.br\ Unchanged wheat dextrin (Benefiber) See instructions uses guar gum orally by mouth Contact prescribing physician if questions or concerns \.br\ Pharmacy Information\.br\ [id number]: [address], [place] [id number] [phone]\.br\ Allergies\.br\ No Known Allergies\.br\ No Known Medication Allergies\.br\ Problems\.br\ Ongoing - Any problem that you are currently receiving treatment for.\.br\ ASCVD (arteriosclerotic cardiovascular disease)\.br\ Asthma\.br\ BMI 21.0-21.9, adult\.br\ Chest pain\.br\ Facial laceration\.br\ Irritable bowel syndrome with constipation\.br\ Non-smoker\.br\ Osteopenia\.br\ Osteoporosis\.br\ Peripheral arterial disease\.br\ Primary hypertension\.br\ Shortness of breath\.br\ Stress\.br\ Patient Survey\.br\ You may receive a survey via text or e-mail asking about your office visit. Please share your experience with us by completing your survey. We appreciate your feedback and thank you for choosing us for your care.\.br\ \.br\ [facility] Pre-Visit Planningon 023 Pre-Visit Planning - From: Gita Contreras To: Lise DOS SANTOS, Srinivasan Milligan; Sent: 08/08/2023 12:04:31 EST Subject: Pre-Visit Planning Due Date/Time: 08/08/2023 12:04:00 EST Caller Name: DORIE ROOT; Caller Number: [facility] Dr. Lezama. During a pre-visit planning chart review, I noted the following documentation in the medical record: Current Problem List: ASCVD (arteriosclerotic cardiovascular disease), Chest pain, Hypertension, and Shortness of breath. Current Medication List: hydrochlorothiazide- lisinopril and lisinopril. 06/13/2023 [facility] Consultation Note: Based on your medical judgment, can you please clarify which, if any, of the following conditions are present? I can update the Chronic Problem List with your response if you would like. -Peripheral Arterial Disease -Other (please specify): In responding to this request, please exercise your independent professional judgement. The fact that a question is asked does not imply that any particular answer is desired or expected. If you have any questions, please feel free to contact me at extension [phone]. Thank you and have a great weekend! Gita Contreras LPN - From: Srinivasan Lezama MD To: Gita Contreras; Sent: 08/11/2023 08:51:48 EST Subject: RE: Pre-Visit Planning Caller Name: DORIE ROOT; Caller Number: H - Please add PAD Normal [address] [place] [address] Dexa Scanson 08-04-2023 Dexa Scans [phone] [id number] #1.00TIFF Normal [facility] Dexa Scans [phone] [id number] #1.00TIFF Normal [facility] Ambulatory Visit Summaryon 1 09-30-2022 Ambulatory Visit Summary DORIE ROOT :1945 Visit Date:07/31/2023 Ambulatory Visit Instructions Your Diagnosis HTN (hypertension) Your Care Team Attending Physician - Roxane Barraza Primary Care Physician - Srinivasan Lezama MD This Is Your Medications List albuterol (Albuterol (Eqv-ProAir HFA) 90 mcg/inh inhalation aerosol) amoxicillin budesonide-formotero l (Symbicort 80/4.5 inhalation aerosol with adapter) cholestyramine (Prevalite 4 g/5.5 g oral powder for reconstitution) hydrochlorothiazide- lisinopril linaclotide (Linzess 72 mcg oral capsule) lisinopril (Prinivil 10 mg oral tablet) methylcobalamin (Vitamin B12 Methylcobalamin 5000 mcg sublingual tablet) multivitamin (Multi Vitamin+) multivitamin with minerals (Multiple Vitamins with Zinc oral capsule) topiramate (topiramate 25 mg Tab) ubiquinone (CoQ10 100 mg oral capsule) wheat dextrin (Benefiber) Procedures Performed Colonoscopy (10/01/2021), Dilatation and curettage: routine. What to do next Scheduled Follow-Up Appointments Friday 1:20 PM EST With: Lise DOS SANTOS, Srinivasan Milligan Where: [facility] [address] [id number] \.br\ Medications\.br\ What How Much When Why Instructions\.br\ Unchanged albuterol (Albuterol (Eqv-ProAir HFA) 90 mcg/ inh inhalation aerosol) 2 Puffs Inhalation Every 6 hours\.br\ Unchanged amoxicillin 2,000 Milligram By Mouth Once as needed for Other (see comment) 30 to 60 minutes prior to dental procedure \.br\ Unchanged budesonide-formote rol (Symbicort 80/ 4.5 inhalation aerosol with adapter) See instructions INHALE 2 PUFFS BY MOUTH TWICE DAILY \.br\ Unchanged cholestyramine (Prevalite 4 g/ 5.5 g oral powder for reconstitution) 4 Gram By Mouth Every day take 2gm daily until instructed otherwise \.br\ Unchanged hydrochlorothiazid e-lisinopril 12.5-10 mg By Mouth Every day\.br\ Unchanged linaclotide (Linzess 72 mcg oral capsule) 1 Capsules By Mouth Every day Irritable bowel syndrome with constipation BMI 21.0-21.9, adult Non-smoker\.br\ Unchanged lisinopril (Prinivil 10 mg oral tablet) 1 Tablets By Mouth Every day\.br\ Unchanged methylcobalamin (Vitamin B12 Methylcobalamin 5000 mcg sublingual tablet) 1 Tablets Sublingual Every day\.br\ Unchanged multivitamin (Multi Vitamin+)\.br\ Unchanged multivitamin with minerals (Multiple Vitamins with Zinc oral capsule) 1 Capsules By Mouth Every day\.br\ Unchanged topiramate (topiramate 25 mg Tab) 1 Capsules By Mouth At bedtime\.br\ Unchanged ubiquinone (CoQ10 100 mg oral capsule)\.br\ Unchanged wheat dextrin (Benefiber) See instructions uses guar gum orally by mouth \.br\ Allergies\.br\ No Known Allergies\.br\ No Known Medication Allergies\.br\ Problems\.br\ Ongoing - Any problem that you are currently receiving treatment for.\.br\ ASCVD (arteriosclerotic cardiovascular disease)\.br\ Asthma\.br\ BMI 21.0-21.9, adult\.br\ Chest pain\.br\ Facial laceration\.br\ Irritable bowel syndrome with constipation\.br\ Non-smoker\.br\ Osteoporosis\.br\ Primary hypertension\.br\ Shortness of breath\.br\ Stress\.br\ Patient Survey\.br\ You may receive a survey via text or e-mail asking about your office visit. Please share your experience with us by completing your survey. We appreciate your feedback and thank you for choosing us for your care.\.br\ \.br\ [facility] CMPon 07-31-2023 Albumin [Mass/Vol] 4.2 g/dL Normal 3.3-5.0 [facility] Comment on above: Performed By: #### 1 [id number], [id number] ####[facility] [address] [place] [address] Albumin/Globulin (S) [Mass conc ratio] 1.4 Normal 1.1-2.2 [facility] Comment on above: Performed By: #### 1 [id number], [id number] ####[facility] [address] [place] [address] ALP [Catalytic activity/Vol] 63 Int._Unit/L Normal 21-98 [facility] Comment on above: Performed By: #### 1 [id number], [id number] ####[facility] [address] [place] [address] ALT No additional P-5'-P [Catalytic activity/Vol] 23 Int._Unit/L Normal 6-46 [facility] Comment on above: Performed By: #### 1 [id number], [id number] ####[facility] [address] [place] [address] Anion gap [Moles/Vol] 12 mmol/L Normal 6-16 [facility] Comment on above: Performed By: #### 1 [id number], [id number] ####[facility] [address] [place] [address] AST [Catalytic activity/Vol] 31 Int._Unit/L Normal 5-43 [facility] Comment on above: Performed By: #### 1 [id number], [id number] ####[facility] [address] [place] [address] Bilirubin [Mass/Vol] 0.4 mg/dL Normal 0.0-1.1 [facility] Comment on above: Performed By: #### 1 [id number], [id number] ####[facility] [address] [place] [address] Calcium [Mass/Vol] 9.5 mg/dL Normal 8.9-11.1 [facility] Comment on above: Performed By: #### 1 [id number], [id number] ####[facility] [address] [place] [address] Chloride [Moles/Vol] 102 mmol/L Normal 101-111 [facility] Comment on above: Performed By: #### 1 [id number], [id number] ####[facility] [address] [place] [address] CO2 [Moles/Vol] 24 mmol/L Normal 21-31 [facility] Comment on above: Performed By: #### 1 [id number], [id number] ####[facility] [address] [place] [address] Creatinine [Mass/Vol] 0.8 mg/dL Normal 0.5-1.3 [facility] Comment on above: Performed By: #### 1 [id number], [id number] ####[facility] [address] [place] [address] Globulin (S) [Mass/Vol] 2.9 g/dL Normal 1.4-4.0 [facility] Comment on above: Performed By: #### 1 [id number], [id number] ####[facility] [address] [facility] [place] [address] Glucose [Mass/Vol] 142 mg/dL Normal 55-199 [facility] Comment on above: Result Comment: If t his glucose result represents a fasting glucose, interpretation should refer to the following reference range: 55-99 mg/dL Performed By: #### 1 [id number], [id number] ####[facility] [address] [facility] [place] [address] Potassium [Moles/Vol] 3.1 mmol/L Low 3.5-5.3 [facility] Comment on above: Performed By: #### 1 [id number], [id number] ####[facility] [address] [facility] [place] [address] Protein [Mass/Vol] 7.1 g/dL Normal 6.0-7.8 [facility] Comment on above: Performed By: #### 1 [id number], [id number] ####[facility] [address] [facility] [place] [address] Sodium [Moles/Vol] 135 mmol/L Normal 135-145 [facility] Comment on above: Performed By: #### 1 [id number], [id number] ####[facility] [address] [facility] [place] [address] Urea nitrogen [Mass/Vol] 17 mg/dL Normal 5-21 [facility] Comment on above: Performed By: #### 1 [id number], [id number] ####[facility] [address] [facility] [place] [address] Urea nitrogen/Creatinine [Mass ratio] 21 No Units High 10-20 [facility] Comment on above: Performed By: #### 1 [id number], [id number] ####[facility] [address] [facility] [place] [address] Nurse Consultation Noteon Nurse Consultation Note Reason for Visit Here for lab draw Assessment/Plan HTN (hypertension) (I10: Essential (primary) hypertension) Medications Albuterol (Eqv-ProAir HFA) 90 mcg/inh inhalation aerosol, 2 puff(s), Inhalation, q6hr amoxicillin, 2000 mg, Oral, Once, PRN Benefiber, See Instructions, Self Directed CoQ10 100 mg oral capsule, Self Directed hydrochlorothiazide- lisinopril, 12.5-10 mg, Oral, Daily Linzess 72 mcg oral capsule, 72 mcg= 1 cap(s), Oral, Daily, 1 refills, Not taking: took 3 doses and quit due to fecal incontinence Multi Vitamin+, Self Directed Multiple Vitamins with Zinc oral capsule, 1 cap(s), Oral, Daily, Self Directed Prevalite 4 g/5.5 g oral powder for reconstitution, 4 gm, Oral, Daily, Self Directed Prinivil 10 mg oral tablet, 10 mg= 1 tab(s), Oral, Daily, Not taking: incorrect formula Symbicort 80/4.5 inhalation aerosol with adapter, See Instructions topiramate 25 mg Tab, 25 mg= 1 cap(s), Oral, Bedtime Vitamin B12 Methylcobalamin 5000 mcg sublingual tablet, 5000 mcg= 1 tab(s), SubLingual, Daily, Self Directed Allergies No Known Allergies No Known Medication Allergies Immunizations Vaccine Date Status Comments pneumococcal 20-valent conjugate vaccine 11/20/2022 Recorded influenza virus vaccine, inactivated 06/21/2022 Recorded SARS-CoV-2 (COVID-19) mRNA BNT-162b2 vax 05/25/2021 Recorded 2022-11-20: [id number] influenza virus vaccine, inactivated 05/18/2021 Recorded SARS-CoV-2 (COVID-19) mRNA BNT-162b2 vax 10/20/2020 Recorded 2022-11-20: [id number] SARS-CoV-2 (COVID-19) mRNA BNT-162b2 vax 09/29/2020 Recorded 2022-11-20: [id number] influenza virus vaccine, inactivated 06/06/2020 Recorded influenza virus vaccine, inactivated 05/26/2019 Recorded influenza virus vaccine, inactivated 2019 Recorded zoster vaccine, inactivated 05/14/2019 Recorded zoster vaccine, inactivated 03/18/2019 Recorded influenza virus vaccine, inactivated 06/02/2018 Recorded influenza virus vaccine, inactivated 06/12/2017 Recorded influenza virus vaccine, inactivated 06/10/2016 Recorded pneumococcal 13-valent vaccine 08/10/2015 Recorded zoster vaccine live 06/07/2015 Recorded influenza virus vaccine, inactivated 05/31/2015 Recorded Normal [facility] eGFRon 07-31-2023 GFR/1.73 sq M.predicted among non-blacks MDRD (S/P/Bld) [Vol rate/Area] 74 mL/min/1.73 m2 Normal >=59 [facility] Comment on above: Order Comment: Order added by Discern Expert. 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 Kidney failure is indicated at less than 15 mL/min/1.73m2. Performed By: #### 1 [id number], [id number] ####[facility] [address] [place] [address] Screenson 07-25-2023 Screens [id number] #1.00TIFF Normal [facility] Ambulatory Visit Summaryon 1 09-22-2022 Ambulatory Visit Summary DORIE ROOT :1945 Visit Date:07/23/2023 Ambulatory Visit Instructions Your Diagnosis Annual visit for general adult medical examination with abnormal findings Irritable bowel syndrome with constipation Primary hypertension ASCVD (arteriosclerotic cardiovascular disease) Asthma Osteoporosis Tests Performed BD Bone Density DEXA -- Results Pending -- Please visit your patient portal for your results or contact your primary care physician. Your Care Team Attending Physician - Srinivasan Lezama MD. Primary Care Physician - Srinivasan Lezama MD. This Is Your Medications List albuterol (Albuterol (Eqv-ProAir HFA) 90 mcg/inh inhalation aerosol) amoxicillin budesonide-formotero l (Symbicort 80/4.5 inhalation aerosol with adapter) cholestyramine (Prevalite 4 g/5.5 g oral powder for reconstitution) hydrochlorothiazide- lisinopril linaclotide (Linzess 72 mcg oral capsule) lisinopril (Prinivil 10 mg oral tablet) methylcobalamin (Vitamin B12 Methylcobalamin 5000 mcg sublingual tablet) multivitamin (Multi Vitamin+) multivitamin with minerals (Multiple Vitamins with Zinc oral capsule) topiramate (topiramate 25 mg Tab) ubiquinone (CoQ10 100 mg oral capsule) wheat dextrin (Benefiber) Procedures Performed Colonoscopy (10/01/2021), Dilatation and curettage: routine. Discharge Vitals Heart Rate (Peripheral) 70 Blood Pressure 146/70 Height 62 in Height 158 cm Weight 110.44 lb Weight 50.2 kg BMI 20.11 What to do next Scheduled Follow-Up Appointments Friday 10:40 AM EST With: Where: [facility] Invalid Interpretation Code [address] [place] [address]- \.br\ Friday 11:00 AM EST \.br\ With:\.br\ Where: [facility] Ambulatory Visit Summary DORIE ROOT :1945 Visit Date:07/23/2023 Ambulatory Visit Instructions Your Diagnosis Annual visit for general adult medical examination with abnormal findings Irritable bowel syndrome with constipation Primary hypertension Your Care Team Attending Physician - Srinivasan Lezama MD Primary Care Physician - Srinivasan Lezama MD This Is Your Medications List albuterol (Albuterol (Eqv-ProAir HFA) 90 mcg/inh inhalation aerosol) amoxicillin budesonide-formotero l (Symbicort 80/4.5 inhalation aerosol with adapter) cholestyramine (Prevalite 4 g/5.5 g oral powder for reconstitution) hydrochlorothiazide- lisinopril linaclotide (Linzess 72 mcg oral capsule) lisinopril (Prinivil 10 mg oral tablet) methylcobalamin (Vitamin B12 Methylcobalamin 5000 mcg sublingual tablet) multivitamin (Multi Vitamin+) multivitamin with minerals (Multiple Vitamins with Zinc oral capsule) topiramate (topiramate 25 mg Tab) ubiquinone (CoQ10 100 mg oral capsule) wheat dextrin (Benefiber) Procedures Performed Colonoscopy (10/01/2021), Dilatation and curettage: routine. What to do next Scheduled Follow-Up Appointments Friday 1:20 PM EST With: Srinivasan Lezama MD Where: [facility] Normal [address] [place] [address]- \.br\ Medications\.br\ What How Much When Why Instructions\.br\ Unchanged albuterol (Albuterol (Eqv-ProAir HFA) 90 mcg/ inh inhalation aerosol) 2 Puffs Inhalation Every 6 hours\.br\ Unchanged amoxicillin 2,000 Milligram By Mouth Once as needed for Other (see comment) 30 to 60 minutes prior to dental procedure \.br\ Unchanged budesonide-formote rol (Symbicort 80/ 4.5 inhalation aerosol with adapter) See instructions INHALE 2 PUFFS BY MOUTH TWICE DAILY \.br\ Unchanged cholestyramine (Prevalite 4 g/ 5.5 g oral powder for reconstitution) 4 Gram By Mouth Every day take 2gm daily until instructed otherwise \.br\ Unchanged hydrochlorothiazid e-lisinopril 12.5-10 mg By Mouth Every day\.br\ Unchanged linaclotide (Linzess 72 mcg oral capsule) 1 Capsules By Mouth Every day Irritable bowel syndrome with constipation BMI 21.0-21.9, adult Non-smoker\.br\ Unchanged lisinopril (Prinivil 10 mg oral tablet) 1 Tablets By Mouth Every day\.br\ Unchanged methylcobalamin (Vitamin B12 Methylcobalamin 5000 mcg sublingual tablet) 1 Tablets Sublingual Every day\.br\ Unchanged multivitamin (Multi Vitamin+)\.br\ Unchanged multivitamin with minerals (Multiple Vitamins with Zinc oral capsule) 1 Capsules By Mouth Every day\.br\ Unchanged topiramate (topiramate 25 mg Tab) 1 Capsules By Mouth At bedtime\.br\ Unchanged ubiquinone (CoQ10 100 mg oral capsule)\.br\ Unchanged wheat dextrin (Benefiber) See instructions uses guar gum orally by mouth \.br\ Allergies\.br\ No Known Allergies\.br\ No Known Medication Allergies\.br\ Problems\.br\ Ongoing - Any problem that you are currently receiving treatment for.\.br\ ASCVD (arteriosclerotic cardiovascular disease)\.br\ Asthma\.br\ BMI 21.0-21.9, adult\.br\ Chest pain\.br\ Facial laceration\.br\ Irritable bowel syndrome with constipation\.br\ Non-smoker\.br\ Osteoporosis\.br\ Primary hypertension\.br\ Shortness of breath\.br\ Stress\.br\ Patient Survey\.br\ You may receive a survey via text or e-mail asking about your office visit. Please share your experience with us by completing your survey. We appreciate your feedback and thank you for choosing us for your care.\.br\ Education Materials\.br\ Diet for Irritable Bowel Syndrome\.br\ When you have irritable bowel syndrome (IBS), it is very important to follow the eating habits that are best for your condition. IBS may cause various symptoms, such as pain in the abdomen, constipation, or diarrhea.\.br\ Choosing the right foods can help to ease the discomfort from these symptoms. Work with your health care provider and dietitian to find the eating plan that will help to control your symptoms.\.br\ What are tips for following this plan?\.br\ \.br\ ? \.br\ Keep a food diary. This will help you identify foods that cause symptoms. Write down:\.br\ ? \.br\ What you eat and when you eat it.\.br\ ? \.br\ What symptoms you have.\.br\ ? \.br\ When symptoms occur in relation to your meals, such as pain in abdomen 2 hours after dinner. \.br\ ? \.br\ Eat your meals slowly and in a relaxed setting.\.br\ ? \.br\ Aim to eat 5?6 small meals per day. Do not skip meals.\.br\ ? \.br\ Drink enough fluid to keep your urine pale yellow.\.br\ ? \.br\ Ask your health care provider if you should take an tzht-fom-tcvifmg probiotic to help restore healthy bacteria in your gut (digestive tract). Probiotics are foods that contain good bacteria and yeasts.\.br\ ? \.br\ Your dietitian may have specific dietary recommendations for you based on your symptoms. Your dietitian may recommend that you:\.br\ ? \.br\ Avoid foods that cause symptoms. Talk with your dietitian about other ways to get the same nutrients that are in those problem foods.\.br\ ? \.br\ Avoid foods with gluten. Gluten is a protein that is found in rye, wheat, and barley.\.br\ ? \.br\ Eat more foods that contain soluble fiber. Examples of foods with high soluble fiber include oats, seeds, and certain fruits and vegetables. Take a fiber supplement if told by your dietitian.\.br\ ? \.br\ Reduce or avoid certain foods called FODMAPs. These are foods that contain sugars that are hard for some people to digest. Ask your health care provider which foods to avoid.\.br\ What foods should I avoid?\.br\ \.br\ The following are some foods and drinks that may make your symptoms worse:\.br\ ? \.br\ Fatty foods, such as swiss fries.\.br\ ? \.br\ Foods that contain gluten, such as pasta and cereal.\.br\ ? \.br\ Dairy products, such as milk, cheese, and ice cream.\.br\ ? \.br\ Spicy foods.\.br\ ? \.br\ Alcohol.\.br\ ? \.br\ Products with caffeine, such as coffee, tea, or chocolate.\.br\ ? \.br\ Carbonated drinks, such as soda.\.br\ ? \.br\ Foods that are high in FODMAPs. These include certain fruits and vegetables.\.br\ ? \.br\ Products with sweeteners such as honey, high fructose corn syrup, sorbitol, and mannitol.\.br\ The items listed above may not be a complete list of foods and beverages you should avoid. Contact a dietitian for more information.\.br\ What foods are good sources of fiber?\.br\ \.br\ Your health care provider or dietitian may recommend that you eat more foods that contain fiber. Fiber can help to reduce constipation and other IBS symptoms. Add foods with fiber to your diet a little at a time so your body can get used to them. Too much fiber at one time might cause gas and swelling of your abdomen. The following are some foods that are good sources of fiber:\.br\ ? \.br\ Berries, such as raspberries, strawberries, and blueberries.\.br\ ? \.br\ Tomatoes.\.br\ ? \.br\ Carrots.\.br\ ? \.br\ Brown rice.\.br\ ? \.br\ Oats.\.br\ ? \.br\ Seeds, such as jaylyn and pumpkin seeds.\.br\ The items listed above may not be a complete list of recommended sources of fiber. Contact your dietitian for more options.\.br\ Where to find more information\.br\ ? \.br\ International Foundation for Functional Gastrointestinal Disorders: aboutibs.org\.br\ ? \.br\ National [place] of Diabetes and Digestive and Kidney Diseases: niddk.nih.gov\.br\ Summary\.br\ ? \.br\ When you have irritable bowel syndrome (IBS), it is very important to follow the eating habits that are best for your condition.\.br\ ? \.br\ IBS may cause various symptoms, such as pain in the abdomen, constipation, or diarrhea.\.br\ ? \.br\ Choosing the right foods can help to ease the discomfort that comes from symptoms.\.br\ ? \.br\ Your health care provider or dietitian may recommend that you eat more foods that contain fiber.\.br\ ? \.br\ Keep a food diary. This will help you identify foods that cause symptoms.\.br\ This information is not intended to replace advice given to you by your health care provider. Make sure you discuss any questions you have with your health care provider.\.br\ Document Revised: 07/30/2022 Document Reviewed: 07/30/2022 [employer] Patient Education ? 2022 [employer].br\ \.br\ [facility] Family Medicine Office/Clini c Noteon 07-23-2023 Family Medicine Office/Clinic Note Chief Complaint Subsequent Medicare Visit Review of Systems PHQ Score Initial Depression Screen Score: 1 SCORE Physical Exam Vitals & Measurements HR: 70(Peripheral) BP: 146/70 SpO2: 98% HT: 158 cm HT: 62 in WT: 50.2 kg WT: 110.44 lb BMI: 20.11 Assessment/Plan 1. Annual visit for general adult medical examination with abnormal findings (Z00.01: Encounter for general adult medical examination with abnormal findings) The patient was given a customized and personalized print out of all the current AHRQ USPSTF?s recommendations for preventative services and all current CDC recommended immunizations, relevant risk recommendations and the following patient brochures were given. Reviewed Medicare preventative services checklist. CDC-Falls Prevention and home safety screening reviewed. Patient denies any falls in last 12 months, voices no worry about falling, exhibits no problems with sitting, standing, or ambulation. Pt voices understanding with keeping walk way area free of clutter to prevent tripping and/or falling. [place] Advance Directives reviewed, patient has copy at home, encouraged to bring to office for scanning to chart. Patient denies any problems with ADL?s and Instrumental ADL?s. Cognitive screening completed with memory and clock face drawing, no deficits noted. Immunization Record reviewed with the patient. Discussed Shingrix vaccine with educational handout and availability. COVID vaccines have been administered, immunization record is up to date. Allergies and medications reviewed and up to date. Patient denies concerns with taking medication as prescribed, reviewed OTC medications with patient, medication list up to date. Blood tests were reviewed: Discussed what tests need to be updated. Labs were ordered, will have completed prior to next PCP visit. Nurse visit scheduled: 07/29/2023 Will have labs completed with [facility]. Colonoscopy up to date, last completed 10/01/2021. Mammogram Up to date. Reviewed pain symptoms with patient: pain symptoms denied Reviewed all outside providers that patient follows. Last visit summary notes available in chart and/or have been requested. Follow up scheduled,08/12/23 AWV has been scheduled, 07/23/2024 Abnormal findings with elevated BP, serial assessment completed and documented. Medicare provides yearly screening for alcohol and depression concerns. This is completed during our Medicare Wellness visit for those who do not have a current diagnosis of depression or concerns with alcohol use. I spent a total of 17 minutes on this date of service which included preparing to see the patient, face to face patient care, completing clinical documentation, obtaining and/or reviewing separately obtained history, counseling and educating the patient with handouts. Explanations were provided with reviewing questionnaires. AUDIT risk assessment screening completed, risk score 0, with patient denying concerns with use. Completed PHQ-2 risk assessment for depression with risk score 0, negative findings. Patient has been reminded to notify the provider if there would be a change or concerns with symptoms with fear, unable to sleep, worrying too much or feeling down and/or sad with lost of interest with daily activities. Will continue to monitor with screening yearly during Medicare wellness visits. 2. Irritable bowel syndrome with constipation (K58.1: Irritable bowel syndrome with constipation) Patient states she had a bout of constipation and loose stools on Thursday 07/19 (message sent to PCP re: pt's concerns). Patient is no longer taking Linzess due to fecal incontinence. Educational handouts provided with dietary recommendations. Patient is aware of symptoms to monitor for and report to provider. 3. Primary hypertension (I10: Essential (primary) hypertension) Patient is taking lisinopril-HCTZ daily as directed. HTN stoplight reviewed with BP goal to be <140/90. Reviewed different factors that can alter blood pressure readings. Education handout provided with s/s to monitor for and report to provider. Patient is encouraged to increase portions of fruit, vegetables, fiber and increase exercise as much as tolerable. Reviewed importance with monitoring foods high in salt content and encouraged to limit intake, if unsure encouraged to discuss with their PCP. Encouraged to eat more chicken, fish and lean white meats and limits red meats in diet. Discussed importance with keeping BP under good control to reduce CVA risk factors. Will continue to f/u with PCP during office visits and as needed. BP on recheck today 146/70. Educated patient on how to properly check BP, encouraged patient to monitor BP at home, and keep log and to bring to next OV. 4. ASCVD (arteriosclerotic cardiovascular disease) (I25.10: Atherosclerotic heart disease of [place] coronary artery without angina pectoris) Patient is taking medications as prescribed. Does not follow with cardiology. Denies concerns with SOB, chest pain or tightness. R (more content not included)... Normal [facility] Comment on above: Result Comment: Elec tronically Signed By: Roxane Barraza\.br\Date and Time Signed: 07/23/23 16:59 EST\.br\Electronically Co-Signed By: Abel Dominguez\.br\Date and Time Co-Signed: 07/23/23 14:57 EST Patient Educationon 07-23-20 23 Patient Education Gastroenterology Diet for Irritable Bowel Syndrome When you have irritable bowel syndrome (IBS), it is very important to follow the eating habits that are best for your condition. IBS may cause various symptoms, such as pain in the abdomen, constipation, or diarrhea. Choosing the right foods can help to ease the discomfort from these symptoms. Work with your health care provider and dietitian to find the eating plan that will help to control your symptoms. What are tips for following this plan? ? Keep a food diary. This will help you identify foods that cause symptoms. Write down: ? What you eat and when you eat it. ? What symptoms you have. ? When symptoms occur in relation to your meals, such as pain in abdomen 2 hours after dinner. ? Eat your meals slowly and in a relaxed setting. ? Aim to eat 5?6 small meals per day. Do not skip meals. ? Drink enough fluid to keep your urine pale yellow. ? Ask your health care provider if you should take an vnsm-zxj-qaofblo probiotic to help restore healthy bacteria in your gut (digestive tract). Probiotics are foods that contain good bacteria and yeasts. ? Your dietitian may have specific dietary recommendations for you based on your symptoms. Your dietitian may recommend that you: ? Avoid foods that cause symptoms. Talk with your dietitian about other ways to get the same nutrients that are in those problem foods. ? Avoid foods with gluten. Gluten is a protein that is found in rye, wheat, and barley. ? Eat more foods that contain soluble fiber. Examples of foods with high soluble fiber include oats, seeds, and certain fruits and vegetables. Take a fiber supplement if told by your dietitian. ? Reduce or avoid certain foods called FODMAPs. These are foods that contain sugars that are hard for some people to digest. Ask your health care provider which foods to avoid. What foods should I avoid? The following are some foods and drinks that may make your symptoms worse: ? Fatty foods, such as swiss fries. ? Foods that contain gluten, such as pasta and cereal. ? Dairy products, such as milk, cheese, and ice cream. ? Spicy foods. ? Alcohol. ? Products with caffeine, such as coffee, tea, or chocolate. ? Carbonated drinks, such as soda. ? Foods that are high in FODMAPs. These include certain fruits and vegetables. ? Products with sweeteners such as honey, high fructose corn syrup, sorbitol, and mannitol. The items listed above may not be a complete list of foods and beverages you should avoid. Contact a dietitian for more information. What foods are good sources of fiber? Your health care provider or dietitian may recommend that you eat more foods that contain fiber. Fiber can help to reduce constipation and other IBS symptoms. Add foods with fiber to your diet a little at a time so your body can get used to them. Too much fiber at one time might cause gas and swelling of your abdomen. The following are some foods that are good sources of fiber: ? Berries, such as raspberries, strawberries, and blueberries. ? Tomatoes. ? Carrots. ? Brown rice. ? Oats. ? Seeds, such as jaylyn and pumpkin seeds. The items listed above may not be a complete list of recommended sources of fiber. Contact your dietitian for more options. Where to find more information ? International Foundation for Functional Gastrointestinal Disorders: aboutibs.org ? National [place] of Diabetes and Digestive and Kidney Diseases: niddk.nih.gov Summary ? When you have irritable bowel syndrome (IBS), it is very important to follow the eating habits that are best for your condition. ? IBS may cause various symptoms, such as pain in the abdomen, constipation, or diarrhea. ? Choosing the right foods can help to ease the discomfort that comes from symptoms. ? Your health care provider or dietitian may recommend that you eat more foods that contain fiber. ? Keep a food diary. This will help you identify foods that cause symptoms. This information is not intended to replace advice given to you by your health care provider. Make sure you discuss any questions you have with your health care provider. Document Revised: 07/30/2022 Document Reviewed: 07/30/2022 [employer] Patient Education ? 2022 [employer] Normal [facility] Lab Reportson 07-17-2023 Lab Reports [id number] #1.00TIFF Normal [facility] Lipid 1996 panelon 3 Cholesterol [Mass/Vol] 209 mg/dL High <200 [facility] Comment on above: Order Comment: Speci men Type: BLOOD SPECIMEN Ordering Facility: [facility] Address: [address] [place] [address] Result Comment: <200 mg/dL, Desirable 200-239 mg/dL, Borderline high >239 mg/dL, High Performed By: #### 2 4331-1 #### [facility] CLIA [id number] [address] [place] [address] [facility] Cholesterol in HDL [Mass/Vol] 76 mg/dL Normal >39 [facility] Comment on above: Order Comment: [facility] Type: BLOOD SPECIMEN Ordering Facility: [facility] Address: [address] [place] [address] Result Comment: 40-5 9 mg/dL, Acceptable >59 mg/dL, High: Negative risk factor for coronary heart disease <40 mg/dL, Low: Positive risk factor for coronary heart disease Performed By: #### 2 4331-1 #### [facility] CLIA [id number] [address] [place] [address] [facility] Cholesterol in LDL [Mass/Vol] 115 mg/dL High <100 [facility] Comment on above: Order Comment: [facility] Type: BLOOD SPECIMEN Ordering Facility: [facility] Address: [address] [place] [address] Result Comment: <100 mg/dL, Optimal 100-129 mg/dL, Near optimal/above optimal 130-159 mg/dL, Borderline high 160-189 mg/dL, High >189 mg/dL, Very high Secondary prevention optimal LDL Cholesterol levels are recommended to be < 70 mg/dL Performed By: #### 2 4331-1 #### [facility] CLIA [id number] [address] [place] [address] [facility] Cholesterol in LDL/Cholesterol in HDL [Mass ratio] 1.51 {ratio} Normal <2.54 [facility] Comment on above: Order Comment: [facility] Type: BLOOD SPECIMEN Ordering Facility: [facility] Address: [address] [place] [address] Result Comment: Mateusz hirsch: 1. National Cholesterol Education Program ATP III Guideline At-A-Glance Quick Desk Reference: National Heart, Lung, and Blood [place]. National Institutes of Health. 2001: NIH Publication No. 01-3305. 2. An International Atherosclerosis Society position paper: global recommendations for the management of dyslipidemia: executive summary, Atherosclerosis. 2014: 232(2):410-413. Performed By: #### 2 4331-1 #### [facility] CLIA [id number] [address] [place] [address] [place] Cholesterol in VLDL [Mass/Vol] 18 mg/dL Normal <30 [facility] Comment on above: Order Comment: Speci men Type: BLOOD SPECIMEN Ordering Facility: [facility] Address: [address] [place] [address] Performed By: #### 2 4331-1 #### [facility] CLIA [id number] [address] [place] [address] [place] Cholesterol non HDL [Mass/Vol] 133 mg/dL High <130 [facility] Comment on above: Order Comment: Speci men Type: BLOOD SPECIMEN Ordering Facility: [facility] Address: [address] [place] [address] Result Comment: <130 mg/dL, Optimal 130-159 mg/dL, Near optimal/above optimal 160-189 mg/dL, Borderline high 190-219 mg/dL, High >219 mg/dL, Very high Secondary prevention optimal non HDL Cholesterol levels are recommended to be <100 mg/dL Performed By: #### 2 4331-1 #### [facility] IA [id number] [place] [address] [place] [facility] [place] Cholesterol.total/Ch olesterol in HDL [Mass ratio] 2.75 {ratio} Normal <5.10 [facility] Comment on above: Order Comment: Speci men Type: BLOOD SPECIMEN Ordering Facility: [facility] Address: [address] [place] [address] Performed By: #### 2 4331-1 #### [facility] CLIA [id number] [address] [place] [address] [place] FASTING TIME 15 hrs Normal [facility] Comment on above: Order Comment: Speci men Type: BLOOD SPECIMEN Ordering Facility: [facility] Address: [address] [place] [address] Performed By: #### 2 4331-1 #### [facility] CLIA [id number] [address] [place] [address] [place] Triglyceride [Mass/Vol] 92 mg/dL Normal <150 [facility] Comment on above: Order Comment: Speci men Type: BLOOD SPECIMEN Ordering Facility: [facility] Address: [address], [place] [address] Result Comment: <150 mg/dL, Normal 150-199 mg/dL, Borderline high 200-499 mg/dL, High >499 mg/dL, Very high Performed By: #### 2 4331-1 #### [facility] CLIA [id number] [facility] [place] [address] [facility] Consultation Noteon 07-08-20 Consultation Note [id number] #1.00TIFF Normal [facility] ECG 12-Leadon 06-25-2023 ECG 12-Lead [id number] #1.00TIFF Normal [facility] Lab Reportson 06-25-2023 Lab Reports [id number] #1.00TIFF Normal [facility] Interdisciplinary Note - Soc ial Workeron 06-23-2023 Interdisciplinary Note - Shellfish Weigher Consult received due to patient's dx of IBS. Due to system glitch, this consult was not received until recently, although ordered 04/30/23. Chart review noted that patient has had subsequent visits with PCP in which SW needs were not identified. SW will remain available. Normal [facility] CNOVon 06-17-2023 CNOV Office Visit (VENITA) DORIE ROOT ([id number]) 1945 F Date Time Provider Department 06/17/23 11:45 AM RACHAEL CHANEY During your visit today, we recorded the following information about you: Pulse Blood pressure Weight Height 58/minute 134/66 49.9 kg 1.575 m Rachael Chaney MD 06/17/2023 12:06 PM Signed [facility] Heart and Vascular [place] Stepan Sharif Department of Cardiovascular Medicine SECTION OF REGIONAL CARDIOLOGY OUTPATIENT VISIT DATE June 17, 2023 OUTPATIENT VISIT TYPE ESTABLISHED HISTORY OF PRESENT ILLNESS: Dorie Root is a (an) 78 year old year old female who is here today for follow-up. She underwent stress nuclear test and echo. Presents with Last OV 04/28/23 Dorie Root is a 77 year old female from [place], [place] here today self referral. Has h/o HTN, Rheumatic fever in her teen age requiring treatment on PCN. Also has h/o chronic vertigo/dizziness and giddiness (review of her records goes back to 2005). She was evaluated recently by Neurology. She reports also c/o vaguely described episodic non radiating chest pain discomfort to mid chest on daily basis starts in AM then goes away with the course of the day. She reports also baseline SOB that she attributed to her asthma. On Lisinopril Presents with her SOCIAL HISTORY Social History Tobacco Use Smoking status: Never ALLERGIES: Patient has no known allergies. CURRENT MEDICATIONS: Current Outpatient Medications Medication Sig topiramate (TOPAMAX) 50 mg tablet Take 1 tablet by mouth daily at bedtime. BENEFIBER, GUAR GUM, ORAL Take by mouth. Coenzyme Z07-Tglbfbc E 100-5 mg-unit cap 2 gels Orally LUTEIN-ZEAXANTHIN ORAL Take by mouth. cyanocobalamin, vitamin B-12, (VITAMIN B-12) 5,000 mcg subl Dissolve under the tongue. fsh/flx/prim/cur/bor /om3,6,9 5 (OMEGA 3-6-9 FATTY ACIDS ORAL) Take by mouth. Ascorbic Acid (VITAMIN C) 1,000 mg tablet Take 1,000 mg by mouth once daily. calcium carbonate/vitamin D3 (CALTRATE-600 PLUS VITAMIN D3 ORAL) Take by mouth. lisinopril (PRINIVIL) 10 mg tablet Take 10 mg by mouth once daily. budesonide-formotero l (SYMBICORT) 80-4.5 mcg/actuation inhaler Inhale 2 Puffs as instructed twice daily. FOSAMAX 70 MG TAB weekly ALBUTEROL 90 MCG/ACTUATION AEROSOL INHALER as needed Current Facility-Administere d Medications Medication Dose Route Frequency perflutren lipid microspheres 1.3 mL in NaCl (PF) 0.9% 10 mL injection (DEFINITY) INTRAVENOUS DIRECTED PRN sodium chloride 0.9 % (flush) 10 mL (BD POSIFLUSH) 10 mL INTRAVENOUS DIRECTED PRN REVIEW OF SYSTEMS: CARDIOVASCULAR: See present history. PULMONARY:No cough or sputum production GASTROINTESTINAL:no bowel changes. GENITOURINARY:no urinary symptoms. ENDOCRINE:no chronic fatigue, significant weight loss/gain, heat/cold intolerance. NEUROLOGICAL:no focal weakness, focal sensory loss, headache, visual changes, seizure activity, ataxia, speech/language loss. RHEUMATOLOGY:no joint swelling, back pain, knee pain, hip pain, or neck pain. INFECTION:no fevers, chills, rigors or night sweats. SKIN:no rash HEMATOLOGY:no bruising, GI bleeding, hematuria, or spontaneous bleeding I have personally interviewed, confirmed and edited the above information if obtained by others - Yair Chaney M.D. PHYSICAL EXAMINATION: Last 3 Encounter BP Readings: Date: BP: 06/12/2023 154/69 04/28/2023 148/72 03/24/2023 150/65 Last 3 Encounter Pulse Readings: Date: Pulse: 06/12/2023 78 04/28/2023 60 03/24/2023 67 Last 3 Encounter Wt Readings: Date: Wt: 04/28/2023 50.3 kg (111 lb) 07/02/2006 53.5 kg (118 lb) BP 134/66 Pulse 58 Ht 5' 2 (1.58m) Wt 110 lb (49.9kg) SpO2 99% BMI 20.11 kg/(m2). GENERAL: No acute distress HEENT:Atraumatic, normocephalic. NECK: No JVD, no carotid bruit, normal carotid upstrokes, no thyromegaly CARDIAC: Regular rhythm. Normal S1 and S2. No murmur, rub or gallop. LUNGS: clear to auscultation, no rhonchi, no rales, no wheezes ABDOMEN: Bowel sounds normal. EXTREMITIES: No peripheral edema NEURO: Oriented to person, place, and time. Appropriate and cooperative, no gross deficit. CARDIOVASCULAR MEDICINE TESTING: Carotid US 01/02/23 IMPRESSION RIGHT SIDE Common carotid artery: Plaque visualized without evidence of hemodynamically significant stenosis. Internal carotid artery: 0-19% stenosis. Vertebral artery: Patent and antegrade flow noted. Subclavian artery: Plaque visualized without evidence of hemodynamically significant stenosis. LEFT SIDE Common carotid artery: Plaque visualized without evidence of hemodynamically significant stenosis. Internal carotid artery: 0-19% stenosis. Vertebral artery: Patent and antegrade flow noted. Technologist: Yu Alcantara RVT (more content not included)... Normal [facility] CNOVon 06-12-2023 CNOV Office Visit (NEURAV) DORIE ROOT ([id number]) 1945 F Date Time Provider Department 06/12/23 3:20 PM ISAAC MATSON NEURAV During your visit today, we recorded the following information about you: Pulse Blood pressure 78/minute 154/69 Isaac Matson MD 06/12/2023 3:12 PM Signed 06/09/2023 PROMIS Global Health Physical Health Summary Physical health: Fair Everyday physical activity, ability: Mostly Fatigue: Moderate Pain level: 2 General health: Good Social activities/roles, ability: Good Physical Health T-Score 42.3 (Good) Physical Health Percentile 22 PROMIS Global Health Mental Health Summary Quality of life: Good Mental health (mood,thinking): Good Social satisfaction: Very good Emotional problems (anxious,depressed): Rarely Mental Health T-Score 48.3 (Very Good) Mental Health Percentile 43 Percentiles provide an indication of how a patient's score ranks in relation to the [place] general population. > 31st percentile is within normal limits or better *< 31st percentile is at least ? SD worse than population, which may be clinically relevant < 16th percentile is at least 1 SD worse than population and warrants attention 06/09/2023 Sleep Apnea Probability Snores loudly: No Tired, fatigued or sleepy in daytime: No Stops breathing or choking/gasping during sleep: No High blood pressure: Yes Sleep Apnea Probability Score: 30 (Sleep study not recommended) Isaac Matson MD 06/12/2023 3:12 PM Signed NEUROLOGY PROGRESS NOTE Dorie Root is a 78 year old female. Who has a history of dizziness comes in for follow up. Interval History Dorie Root is a 78 year old female, with a history of asthma and hypertension who presents with vertigo/ataxia. Patient was in her usual state of health May 2022 out of the blue she felt dizzy and vertiginous. She had this sensation of falling backwards when she stands up and gait unsteadiness. She had been seen by other doctors to, was tried on meclizine but to no avail. She also has had therapy but to no avail. Since last seen we had tried her on Topamax. She states that it might be doing something because she has less of those sensation that she when she changes position she has to hold onto her . It just happens for a few seconds and then resolves. We will increase her Topamax to 50 mg at bedtime see how she does. There is no problem list on file for this patient. No past surgical history on file. Current Outpatient Medications on File Prior to Visit Medication Sig ALBUTEROL 90 MCG/ACTUATION AEROSOL INHALER as needed Ascorbic Acid (VITAMIN C) 1,000 mg tablet Take 1,000 mg by mouth once daily. BENEFIBER, GUAR GUM, ORAL Take by mouth. budesonide-formotero l (SYMBICORT) 80-4.5 mcg/actuation inhaler Inhale 2 Puffs as instructed twice daily. calcium carbonate/vitamin D3 (CALTRATE-600 PLUS VITAMIN D3 ORAL) Take by mouth. Coenzyme R99-Xojugzt E 100-5 mg-unit cap 2 gels Orally cyanocobalamin, vitamin B-12, (VITAMIN B-12) 5,000 mcg subl Dissolve under the tongue. FOSAMAX 70 MG TAB weekly fsh/flx/prim/cur/bor /om3,6,9 5 (OMEGA 3-6-9 FATTY ACIDS ORAL) Take by mouth. lisinopril (PRINIVIL) 10 mg tablet Take 10 mg by mouth once daily. LUTEIN-ZEAXANTHIN ORAL Take by mouth. Current Facility-Administere d Medications on File Prior to Visit Medication perflutren lipid microspheres 1.3 mL in NaCl (PF) 0.9% 10 mL injection (DEFINITY) sodium chloride 0.9 % (flush) 10 mL (BD POSIFLUSH) Social History Tobacco Use Smoking status: Never family history is not on file. GENERAL:No weight loss, malaise or fevers., SEE HPI HEENT:Negative for frequent or significant headaches, No changes in hearing or vision, no nose bleeds or other nasal problems NECK:Negative for lumps, goiter, pain and significant neck swelling RESPIRATORY: Negative for cough, wheezing or shortness of breath. CARDIOVASCULAR: Negative for chest pain, leg swelling or palpitations. GASTROINTESTINAL: Negative for abdominal discomfort, blood in stools or black stools or change in bowel habits See HPI. All systems reviewed and are negative 06/12/23 1451 BP: 154/69 Pulse: 78 PHYSICAL EXAMINATION: General appearance: well appearing, alert, in no acute distress Neck: Supple Carotid Auscultation: Without bruits Lungs: Lungs clear to auscultation CVS: RRR without murmur Neurological exam: MENTAL STATUS: Alert, oriented to person, place and time and Follows commands CRANIAL NERVES: PERRLA, EOM's intact, Face symmetric, No dysarthria, and Tongue protrudes midline MOTOR: No drift MOTOR STRENGTH: Upper and lower extremity 5/5 bilaterally SENSATION: Intact light touch COORDINATION: Finger-to- nose-finger intact bilaterally GAIT: Normal-based IMPRESSION: 1. Dizziness/vertigo PLAN: As above. Any problems or concerns to call me or p (more content not included)... Normal [facility] ECHOon 06-11-2023 Echocardiography Echocardiography Report: Transthoracic Echo [facility] Date of service: 06/11/2023 12:04:33 PM MEDICAL DOCTOR Ordering physician: RACHAEL CHANEY Indication: Chest Pain Technologist: Marlen Jeronimo Interpreting physician: Kamilla Damon MD PATIENT: Name: MRS. DORIE ROOT : 1945 Age: 78 years Gender: F Primary rhythm: sinus. Height: 157.50 cm BSA: 1.48 m Weight: 50.35 kg BMI: 20.3 kg/m Heart rate 68 bpm Technically difficult exam due to body habitus. Color Doppler was utilized to interrogate the cardiac valves assessed and spectral Doppler was utilized to determine the flow velocities and pressure gradients reported in this exam. Myocardial strain analysis was performed in this exam to aid in the assessment of cardiac function. MEASUREMENTS: Value Indexed Normal Max aortic dimension 2.8 cm Ao < 3.8 Left atrial volume 44 ml (biplane A-L) 30 ml/m Jose Daniel <= 34 LV ID (diastole) 4.2 cm (2D) 2.80 cm/m LV ID (systole) 2.3 cm (2D) 1.54 cm/m IVS, leaflet tips 0.6 cm (2D) Posterior wall thickness 0.6 cm (2D) Left ventricular mass 65 g (2D) 44 g/m Global peak long strain -17.7 % LV stroke volume 50 ml (2D biplane) LV end diastolic volume 81 ml (2D biplane) 54.3 ml/m 29<=EDVi<62 LV end systolic volume 30 ml (2D biplane) 20.5 ml/m Ejection Fraction 62 % (2D biplane) EF > 54 FINDINGS: LEFT VENTRICLE The left ventricle is normal in size. Left ventricular systolic function is normal. Global LV myocardial strain is normal. Indeterminate left ventricular diastolic dysfunction. Mitral annular lateral E/e': 9.7. Mitral annular septal E/e': 10.9. Wall Motion: All scored segments are normal. RIGHT VENTRICLE The right ventricle is normal in size. Right ventricular systolic function is normal. RV systolic tissue Doppler velocity is 14.0 cm/s. Tricuspid annular displacement is 2.2 cm. Estimated right ventricular systolic pressure is 39 mmHg consistent with mild pulmonary hypertension. Estimated right atrial pressure is 3 mmHg based on IVC assessment. LEFT ATRIUM The left atrial cavity is normal in size. RIGHT ATRIUM The right atrial cavity is normal in size. Inferior Vena Cava: The inferior vena cava appears normal measuring 1.8 cm. The vessel decreases greater than 50 percent with inspiration. MITRAL VALVE The mitral valve leaflets are structurally normal. There is no mitral stenosis. There is mild (1+) mitral valve regurgitation. The pressure half time is 32 msec. The peak mitral E/A ratio is 0.73. The average mitral E/e' ratio is 10.3. The mitral flow deceleration time is 111 msec. TRICUSPID VALVE The tricuspid valve was not seen or not interrogated. There is moderate (2+) tricuspid valve regurgitation. AORTIC VALVE The aortic valve cusps are structurally normal. There is mild (1+ - 2+) aortic valve regurgitation due to sclerosis. Tricuspid aortic valve. There is mild calcification. The peak gradient is 9 mmHg (peak velocity = 148.3 cm/s). PULMONIC VALVE The pulmonic valve was not seen or not interrogated. There is no pulmonic stenosis. There is mild (1+) pulmonic valve regurgitation. AORTA The visualized aorta is normal in size. Measurements - Sinus: 2.8 cm. Mid ascending aorta 2.6 cm. PULMONARY ARTERIES The pulmonary arteries are unseen or not interrogated. INTERATRIAL SEPTUM There is no evidence of intracardiac shunting as detected by Doppler. INTERVENTRICULAR SEPTUM There is no flow through the interventricular septum as detected by Doppler. PERICARDIUM There is no pericardial effusion. There is an epicardial fat pad. CONCLUSIONS: - Technically difficult exam due to body habitus. - Exam indication: Chest Pain - The left ventricle is normal in size. Left ventricular systolic function is normal. EF = 62 5% (2D biplane) - The right ventricle is normal in size. Right ventricular systolic function is normal. - Mild 1+ MR. - There is moderate (2+) tricuspid valve regurgitation. - Mild-moderate 1-2+ AI. - Estimated right ventricular systolic pressure is 39 mmHg consistent with mild pulmonary hypertension. Estimated right atrial pressure is 3 mmHg based on IVC assessment. - The patient has not had a prior CC echocardiographic exam for comparison. * * * Final * * * CC [employer] Medical Image : [id number] Normal [facility] CARDIAC PERF STRESS/PHARM on 06-11-2023 MS CARDIAC PERF STRESS/PHARM * * *Final Report* * * DATE OF EXAM: Jun 11 2023 2:23PM STN 0006 - NM CARDIAC PERF STRESS/PHARM / PROCEDURE REASON: Chest pain, unspecified type * * * * Physician Interpretation * * * * Stress Linux Programmer Report: [facility] Date of service: 06/11/2023 12:42:30 PM Supervising physician: Kamilla Damon MD PATIENT: Name: MRS. DORIE ROOT Age: 78 years Gender: F The supervising physician was in the department and immediately available. * * * Final * * * PATIENT: Name: MRS. DORIE ROOT Age: 78 years Gender: F CONCLUSIONS: 1. SPECT Perfusion Study: Normal. 2. There is no scintigraphic evidence for inducible ischemia. 3. No evidence of scarred myocardium. 4. Left ventricle is normal in size. The left ventricle systolic function is hyperdynamic. 5. This is a low risk scan. Gated Stress FBP Gated Rest FBP LVEF % 78 72 Prior Study Comparison No prior nuclear cardiology exam available for comparison. Nuclear Med Report:1-Day Gated SPECT Myocardial Perfusion with Regadenoson Stress: Myocardial perfusion imaging was performed at rest 30 minutes following the IV injection of the radiotracer. The patient received 0.4 mg of regadenoson, via rapid IV push, immediately followed by radiotracer IV. Gated post stress tomographic imaging was performed 30 to 60 minutes later. See administered radiotracer and doses below. [facility] Date of service: 06/11/2023 12:42:30 PM Ordering Physician: RACHAEL CHANEY. Requesting Physician: Indication: chest pain Interpreting physician: Elvis Shah MD Height: 157.48 cm BSA: 1.48 m? Weight: 50.35 kg BMI: 20.3 kg/m? Imaging Protocol Limitation Reason Breast attenuation. Exam Type: Rest Stress Radiopharm: Tc-99m Tetrofosmin Tc-99m Tetrofosmin Dosage(mCi): 12.9 33.0 Stress Agent: Regadenoson 0.4mg Supply provided from [facility] Resting Blood Press: 142/78 mmHg Image Quality The overall study imaging quality was deemed to be fair. The following technical issues were noted: Breast attenuation. FINDINGS: Left Ventricle Wall Motion: Stress IR:3D - Rest IR:3D - Gated Stress FBP - All segments are normal. Gated Rest FBP - All segments are normal. Reversibility - Gated Stress FBP Gated Rest FBP Stress IR:3D Gated Stress FBP Gated Rest FBP LVEF: 78 % 72 % ED Volume: 50 ml 53 ml ES Volume: 11 ml 15 ml TID: 0.97 Perfusion Findings Stress IR:3D - Summed Score=0 All segments demonstrate normal perfusion. Rest IR:3D - Summed Score=0 All segments demonstrate normal perfusion. Stress IR:3D Rest IR:3D Summed Score=0 Summed Score=0 LEFT VENTRICLE The left ventricle is normal in size. Left ventricular systolic function is hyperdynamic. Stress Test Findings: There is no scintigraphic evidence for inducible ischemia. There is no evidence of scarring. * * * Final * * * Stress ECG Report: [facility] Date of service: 06/11/2023 12:42:30 PM Ordering physician: RACHAEL CHANEY landscape specialist: Kathy Gustafson Interpreting physician: Kamilla Damon MD Patient name: MRS. DORIE ROOT Age: 78 years Gender: F Height: 157.48 cm BSA: 1.48 m? Weight: 50.35 kg BMI: 20.3 kg/m? Indication: Chest pressure / Chest tightness Stress ECG Conclusion: Conclusion: Normal Stress ECG Summary: The patient's resting heart rate was 59 bpm and blood pressure was 142/78 mmHg. The test was terminated due to end of protocol. No symptoms provoked during stress. The maximum heart rate was 88 bpm, which is 63% of the predicted heart rate for age. Peak blood pressure was 110/60 mmHg. The double product achieved was 9680. Medications: Last Used LISINOPRIL 1 Days Resting ECG: Sinus Bradycardia and Right Lyerly Deviation Symptoms at rest: No symptoms Pharamcologic Protocol: Regadenoson Stress Exercise Table: +------+ +- -+---+---+ Stage Time (min) HR SYS HARJINDER +------+ +- -+---+---+ 1 1.0 60 130 70 +------+ +- -+---+---+ 2 2.0 88 120 60 +------+ +- -+---+---+ 3 3.0 88 130 56 +------+ +- -+---+---+ 4 4.0 85 128 56 +------+ +- -+---+---+ +-----+--+---+---+ HR SYS HARJINDER +-----+--+---+---+ Final 88 110 60 +-----+--+---+---+ +------+ + Stage Arrhythmias +------+ + 1 Regadenoson Injection and Isotope Injection +------+ + 2 (more content not included)... Normal [facility] Office/Clini c Noteon 05-15-2023 Family Medicine Office/Clinic Note HPI Staff Dorie is a 77 year old female presenting for ER follow up ER followup: Hospital: [facility] Visit date: 05/09/23 Symptoms the patient presented with: chest pain, SOB Symptom onset/injury onset: came on suddenly Testing Performed: chest xray, ekg, blood work New medications: no Current concerns: pt has appointment karissa in [place] within [facility] Mid June. going to have a nuclear stress test and CT Having chest pain mostly intermittently in the morning however today it has been happening more today. History of Present Illness Patient is here for ER follow-up. Patient was having some chest pain and some shortness of breath. Because of this patient when to the ER. No signs of cardiac issues at that time. Patient is scheduled for stress test next month. Patient states that there are times that she can point out exactly where the pain is. Patient does have pain with palpation. Patient does get short of breath sometimes. Patient had an x-ray which showed hyperinflated lungs. Review of Systems PHQ Score Initial Depression Screen Score: 0 Physical Exam Vitals & Measurements HR: 78(Peripheral) RR: 18 BP: 136/72 SpO2: 97% HT: 61 in HT: 155 cm WT: 50.9 kg WT: 111.98 lb BMI: 21.19 General: alert, no acute distress ENMT: oral mucosa moist, Cardiovascular: regular rate and rhythm, normal peripheral perfusion, some tenderness to palpation of the left chest wall. Respiratory: Lungs CTA, respirations non labored Extremities: no deformity, no trauma Neurological: oriented x 4, LOC appropriate for age, CN II-XII intact, motor strength equal & normal bilaterally, speech normal Abdomen: Soft, Nontender, Non-distended, + BS Assessment/Plan 1. Chest pain (R07.9: Chest pain, unspecified) - No cardiac concerns at this time. Patient is to follow-up with cardiology for stress test. If patient continues to have chest pain patient is to go back to the ER. Ordered: methylPREDNISolone, = 1 packet(s), Oral, As Directed, as directed on package labeling, X 6 day(s), # 21 tab(s), Refills(s) 0, Pharmacy: [facility]/pharmacy #[id number], 155, cm, 05/13/23 13:38:00 EDT, Height/Length Dosing, 50.9, kg, 05/13/23 13:38:00 EDT, Weight Dosing 2. Shortness of breath (R06.02: Shortness of breath) - We will do a Medrol Dosepak to help with the shortness of breath. Concerning x-ray shows hyperinflation which could be secondary to COPD given the patient was exposed to a lot of secondhand smoke. We will need to continue to monitor. 3. Primary hypertension (I10: Essential (primary) hypertension) - At goal at this time. Ordered: methylPREDNISolone, = 1 packet(s), Oral, As Directed, as directed on package labeling, X 6 day(s), # 21 tab(s), Refills(s) 0, Pharmacy: [facility]/pharmacy #[id number], 155, cm, 05/13/23 13:38:00 EDT, Height/Length Dosing, 50.9, kg, 05/13/23 13:38:00 EDT, Weight Dosing 4. BMI 21.0-21.9, adult (Z68.21: Body mass index [BMI] 21.0-21.9, adult) - BMI education given Ordered: methylPREDNISolone, = 1 packet(s), Oral, As Directed, as directed on package labeling, X 6 day(s), # 21 tab(s), Refills(s) 0, Pharmacy: [facility]/pharmacy #[id number], 155, cm, 05/13/23 13:38:00 EDT, Height/Length Dosing, 50.9, kg, 05/13/23 13:38:00 EDT, Weight Dosing 5. Non-smoker (Z78.9: Other specified health status) - Please continue not to smoke. Ordered: methylPREDNISolone, = 1 packet(s), Oral, As Directed, as directed on package labeling, X 6 day(s), # 21 tab(s), Refills(s) 0, Pharmacy: [facility]/pharmacy #[id number], 155, cm, 05/13/23 13:38:00 EDT, Height/Length Dosing, 50.9, kg, 05/13/23 13:38:00 EDT, Weight Dosing Follow-up No qualifying data available Problem List/Past Medical History Ongoing ASCVD (arteriosclerotic cardiovascular disease) Asthma BMI 21.0-21.9, adult Chest pain Facial laceration Irritable bowel syndrome with constipation Non-smoker Osteoporosis Primary hypertension Shortness of breath Stress Historical No qualifying data Procedure/Surgical History Colonoscopy (10/01/2021), Dilatation and curettage: routine. Medications Albuterol (Eqv-ProAir HFA) 90 mcg/inh inhalation aerosol, 2 puff(s), Inhalation, q6hr Benefiber, See Instructions CoQ10 100 mg oral capsule Linzess 72 mcg oral capsule, 72 mcg= 1 cap(s), Oral, Daily, 1 refills Medrol Dosepack 4 mg Tab, 1 packet(s), Oral, As Directed Multi Vitamin+ Multiple Vitamins with Zinc oral capsule, 1 cap(s), Oral, Daily Prevalite 4 g/5.5 g oral powder for reconstitution, 4 gm, Oral, Daily Prinivil 10 mg oral tablet, 10 mg= 1 tab(s), Oral, Daily Symbicort 80/4.5 inhalation aerosol with adapter, See Instructions topiramate 25 mg Tab, 25 mg= 1 cap(s), Oral, Bedtime Vitamin B12 Methylcobalamin 5000 mcg sublingual tablet, 5000 mcg= 1 tab(s), SubLingual, Daily Allergies No Known Allergies No Known Medication Allergies Social History Tobacco Never (less than 100 in lifetime) Tobacco Use:. Never Smokeless Tobacco Use:. Household tobacco concerns: No., 05/13/2023 Family Hist (more content not included)... [facility] Comment on above: Result Comment: Elec tronically Signed By: Lies DOS SANTOS, Srinivasan Milligan\.br\Date and Time Signed: 05/15/23 13:28 EDT ED Note-Physicianon 05-14-20 ED Note-Physician [id number]# 1.00CD:127 [facility] RAD - MISCon 05-14-2023 RAD - MISC [id number] #1.00CD:127 [facility] Ambulatory Visit Summaryon 0 05-13-2023 Ambulatory Visit Summary DORIE ROOT :1945 Visit Date:05/13/2023 Ambulatory Visit Instructions Your Diagnosis BMI 21.0-21.9, adult Non-smoker Your Care Team Attending Physician - Srinivasan Lezama MD Primary Care Physician - Srinivasan Lezama MD This Is Your Medications List albuterol (Albuterol (Eqv-ProAir HFA) 90 mcg/inh inhalation aerosol) budesonide-formotero l (Symbicort 80/4.5 inhalation aerosol with adapter) cholestyramine (Prevalite 4 g/5.5 g oral powder for reconstitution) linaclotide (Linzess 72 mcg oral capsule) lisinopril (Prinivil 10 mg oral tablet) methylcobalamin (Vitamin B12 Methylcobalamin 5000 mcg sublingual tablet) multivitamin (Multi Vitamin+) multivitamin with minerals (Multiple Vitamins with Zinc oral capsule) topiramate (topiramate 25 mg Tab) ubiquinone (CoQ10 100 mg oral capsule) wheat dextrin (Benefiber) Procedures Performed Colonoscopy (10/01/2021), Dilatation and curettage: routine. Discharge Vitals Heart Rate (Peripheral) 78 Respiratory Rate 18 Blood Pressure 136/72 Height 155 cm Height 61 in Weight 50.9 kg Weight 111.98 lb BMI 21.19 What to do next Scheduled Follow-Up Appointments Friday 1:20 PM EST With: Srinivasan Lezama MD Where: [facility] 05-12-2023 [facility] Telephone ([employer]) DORIE ROOT ([id number]) 1945 F Date Time Provider Department 05/12/23 RACHAEL CHANEY During your visit today, we recorded the following information about you: Emerita Haque 05/12/2023 12:26 PM Signed Dorie Root is calling Rachael Chaney MD today to request Dr. Chaney to request medical records from patient's visit at [facility] from 05.09.23. Please call patient for any additional questions. Fax number: [phone] Patient has been identified by name and birthdate. Duration of symptoms: N/A Person calling: self Call patient at: at home [phone] (home) [phone] (work) [phone] (cell) Was an appointment scheduled: No Closing statement: Results or non-symptom based questions: Thank you for calling [facility], your call will be returned within the next business day. Thank you, Dorie Lemus RN 05/12/2023 12:46 PM Signed Routing to PSS to assist. Claire Campbell 05/21/2023 10:00 AM Signed Medical records request has been sent. Fax confirmation was also scanned into pt chart Allergies As of Date: 05/12/2023 (No Known Allergies) Date Reviewed: 04/28/2023 Reviewed by: Jeramy Bullock OCCA - Fully Assessed Reason for Visit: Request Outside Medical Records [[id number]] Prescriptions as of 05/21/2023 - BENEFIBER, GUAR GUM, ORAL Take by mouth. - Coenzyme X82-Zecxhmg E 100-5 mg-unit cap 2 gels Orally - LUTEIN-ZEAXANTHIN ORAL Take by mouth. - cyanocobalamin, vitamin B-12, (VITAMIN B-12) 5,000 mcg subl Dissolve under the tongue. - fsh/flx/prim/cur/bor /om3,6,9 5 (OMEGA 3-6-9 FATTY ACIDS ORAL) Take by mouth. - Ascorbic Acid (VITAMIN C) 1,000 mg tablet Take 1,000 mg by mouth once daily. - calcium carbonate/vitamin D3 (CALTRATE-600 PLUS VITAMIN D3 ORAL) Take by mouth. - topiramate (TOPAMAX) 25 mg tablet Take 1 tablet by mouth daily at bedtime. - lisinopril (PRINIVIL) 10 mg tablet Take 10 mg by mouth once daily. - budesonide-formotero l (SYMBICORT) 80-4.5 mcg/actuation inhaler Inhale 2 Puffs as instructed twice daily. - FOSAMAX 70 MG TAB weekly - ALBUTEROL 90 MCG/ACTUATION AEROSOL INHALER as needed Facility-Administere d Medications as of 05/21/2023 - perflutren lipid microspheres 1.3 mL in NaCl (PF) 0.9% 10 mL injection (DEFINITY) - sodium chloride 0.9 % (flush) 10 mL (BD POSIFLUSH) Problem List As Of Date: 05/12/2023 (None) Encounter Status:Closed by CLAIRE CAMPBELL on 05/21/23 [facility] Ambulatory Visit Summaryon 0 04-30-2023 Ambulatory Visit Summary DORIE ROOT :1945 Visit Date:04/30/2023 Ambulatory Visit Instructions Your Diagnosis Irritable bowel syndrome with constipation BMI 21.0-21.9, adult Your Care Team Attending Physician - Srinivasan Lezama MD. Primary Care Physician - Srinivasan Lezama MD This Is Your Medications List albuterol (Albuterol (Eqv-ProAir HFA) 90 mcg/inh inhalation aerosol) budesonide-formotero l (Symbicort 80/4.5 inhalation aerosol with adapter) cholestyramine (Prevalite 4 g/5.5 g oral powder for reconstitution) linaclotide (Linzess 72 mcg oral capsule) lisinopril (Prinivil 10 mg oral tablet) methylcobalamin (Vitamin B12 Methylcobalamin 5000 mcg sublingual tablet) multivitamin (Multi Vitamin+) multivitamin with minerals (Multiple Vitamins with Zinc oral capsule) topiramate (topiramate 25 mg Tab) ubiquinone (CoQ10 100 mg oral capsule) wheat dextrin (Benefiber) Procedures Performed Colonoscopy (10/01/2021), Dilatation and curettage: routine. Discharge Vitals Temperature (Oral) 37.2 ?C Heart Rate (Peripheral) 82 Respiratory Rate 16 Blood Pressure 160/76 Height 155 cm Height 61 in Weight 50.5 kg Weight 111.1 lb BMI 21.02 Medications What How Much When Why Instructions Unchanged albuterol (Albuterol (Eqv-ProAir HFA) 90 mcg/ inh inhalation aerosol) 2 Puffs Inhalation Every 6 hours Unchanged budesonide-formotero l (Symbicort 80/ 4.5 inhalation aerosol with adapter) See instructions INHALE 2 PUFFS BY MOUTH TWICE DAILY Unchanged cholestyramine (Prevalite 4 g/ 5.5 g oral powder for reconstitution) 4 Gram By Mouth Every day take 2gm daily until instructed otherwise Unchanged linaclotide (Linzess 72 mcg oral capsule) 1 Capsules By Mouth Every day Irritable bowel syndrome with constipation BMI 21.0-21.9, adult Non-smoker Unchanged lisinopril (Prinivil 10 mg oral tablet) 1 Tablets By Mouth Every day Unchanged methylcobalamin (Vitamin B12 Methylcobalamin 5000 mcg sublingual tablet) 1 Tablets Sublingual Every day Unchanged multivitamin (Multi Vitamin+) Unchanged multivitamin with minerals (Multiple Vitamins with Zinc oral capsule) 1 Capsules By Mouth Every day Unchanged topiramate (topiramate 25 mg Tab) 1 Capsules By Mouth At bedtime Unchanged ubiquinone (CoQ10 100 mg oral capsule) Unchanged wheat dextrin (Benefiber) See instructions uses guar gum orally by mouth Allergies No Known Allergies No Known Medication Allergies Problems Ongoing - Any problem that you are currently receiving treatment for. ASCVD (arteriosclerotic cardiovascular disease) Asthma BMI 21.0-21.9, adult Facial laceration HTN (hypertension) Irritable bowel syndrome with constipation Non-smoker Osteoporosis Normal [facility] Family Medicine Office/Clini c Noteon 04-30-2023 Family Medicine Office/Clinic Note HPI Staff Patient here for one month follow up IBS Yesterday it had been 5 days since her bowels moved but then had a really good BM Still has the linzess but hasn't used it since seeing , used it when saw Roxane Currently using benefiber and sometimes the mirilax Saw manager valuation LINA 04/29 ordered echo and stress test History of Present Illness Patient presents for follow-up on IBS with constipation. Patient has been stable on just fiber. Patient recently had an episode where she did not have a bowel movement for 5 days took 1 dose of MiraLAX and had a good bowel movement. Patient did state that she has been dizzy and she has not been drinking enough water recently. Patient states that her blood pressure has been elevated and she has been seeing her manager valuation for this as well. This prompted a conversation about stress. Patient states that she has been more stressed and very anxious about her bowel movements and the stress test that she is going to go under. Otherwise no other issues. Review of Systems PHQ Score Initial Depression Screen Score: 1 Physical Exam Vitals & Measurements T: 37.2 ?C(Oral) HR: 82(Peripheral) RR: 16 BP: 160/76 SpO2: 97% HT: 61 in HT: 155 cm WT: 50.5 kg WT: 111.1 lb BMI: 21.02 General: alert, no acute distress ENMT: oral mucosa moist, Cardiovascular: Normal peripheral perfusion Respiratory: respirations non labored Extremities: no deformity, no trauma Neurological: oriented x 4, LOC appropriate for age, CN II-XII intact, motor strength equal & normal bilaterally, speech normal Abdomen: Soft, Nontender, Non-distended, + BS Assessment/Plan 1. Irritable bowel syndrome with constipation (K58.1: Irritable bowel syndrome with constipation) - Patient is improving with increased fiber and hydration. -Using MiraLAX as needed. -We will follow-up in 3 months. Ordered: Body Mass Index (BMI) documented 3008F Current tobacco non-user 1036F Depression Screening Negative 3352F Most recent diastolic blood pressure <80 mm Hg 3078F Most recent systolic blood pressure >= 140 mm Hg 3077F Patient screen for fall risk: no falls in last year or 1 fall with no injury in last year 1101F Shellfish Weigher - Ambulatory Referral 2. Primary hypertension (I10: Essential (primary) hypertension) - Elevated today but believe this is more likely due to stress. -We will see the patient back after her stress test. Ordered: Shellfish Weigher - Ambulatory Referral 3. Stress (F43.9: Reaction to severe stress, unspecified) - We will get the patient in with therapy for further work-up. -Discussed other options for stress mitigation -Patient would like to talk to somebody. Ordered: Shellfish Weigher - Ambulatory Referral 4. BMI 21.0-21.9, adult (Z68.21: Body mass index [BMI] 21.0-21.9, adult) BMI education Ordered: Body Mass Index (BMI) documented 3008F Current tobacco non-user 1036F Depression Screening Negative 3352F Most recent diastolic blood pressure <80 mm Hg 3078F Most recent systolic blood pressure >= 140 mm Hg 3077F Patient screen for fall risk: no falls in last year or 1 fall with no injury in last year 1101F Shellfish Weigher - Ambulatory Referral Follow-up No qualifying data available Problem List/Past Medical History Ongoing ASCVD (arteriosclerotic cardiovascular disease) Asthma BMI 21.0-21.9, adult Facial laceration Irritable bowel syndrome with constipation Non-smoker Osteoporosis Primary hypertension Stress Historical No qualifying data Procedure/Surgical History Colonoscopy (10/01/2021), Dilatation and curettage: routine. Medications Albuterol (Eqv-ProAir HFA) 90 mcg/inh inhalation aerosol, 2 puff(s), Inhalation, q6hr Benefiber, See Instructions CoQ10 100 mg oral capsule Linzess 72 mcg oral capsule, 72 mcg= 1 cap(s), Oral, Daily, 1 refills, Not taking Multi Vitamin+ Multiple Vitamins with Zinc oral capsule, 1 cap(s), Oral, Daily Prevalite 4 g/5.5 g oral powder for reconstitution, 4 gm, Oral, Daily Prinivil 10 mg oral tablet, 10 mg= 1 tab(s), Oral, Daily Symbicort 80/4.5 inhalation aerosol with adapter, See Instructions topiramate 25 mg Tab, 25 mg= 1 cap(s), Oral, Bedtime Vitamin B12 Methylcobalamin 5000 mcg sublingual tablet, 5000 mcg= 1 tab(s), SubLingual, Daily Allergies No Known Allergies No Known Medication Allergies Social History Tobacco Never (less than 100 in lifetime) Tobacco Use:. Never Smokeless Tobacco Use:. Household tobacco concerns: No., 04/30/2023 Family History Family history is negative Immunizations Vaccine Date Status Comments pneumococcal 20-valent conjugate vaccine 11/20/2022 Recorded influenza virus vaccine, inactivated 06/21/2022 Recorded SARS-CoV-2 (COVID-19) mRNA BNT-162b2 vax 05/25/2021 Recorded 2022-11-20: [id number] influenza virus vaccine, inactivated 05/18/2021 Recorded SARS-CoV-2 (COVID-19) mRNA BNT-162b2 vax 10/20/2020 Recorded 2022-11-20: TPV75 SARS-CoV-2 (COVID-19) mRNA BNT-162b2 vax 0 (more content not included)... Normal [facility] Comment on above: Result Comment: Elec tronically Signed By: Lise DOS SANTOS, Srinivasan Lynn.nidhi\Date and Time Signed: 04/30/23 15:16 EDT CNOVon 04-28-2023 CNOV Office Visit (CARDAV) DORIE ROOT ([id number]) 1945 F Date Time Provider Department 04/28/23 3:00 PM RACHAEL CHANEY During your visit today, we recorded the following information about you: Pulse Blood pressure Weight Height 60/minute 148/72 50.3 kg 1.575 m Rachael Chaney MD 04/28/2023 5:38 PM Signed [facility] Heart and Vascular [place] Stepan Sharif Department of Cardiovascular Medicine SECTION OF REGIONAL CARDIOLOGY OUTPATIENT VISIT DATE April 28, 2023 OUTPATIENT VISIT TYPE NEW PRIMARY CARE PHYSICIAN: Srinivasan Lezama MD REFERRING PHYSICIAN: No ref. provider found HISTORY OF PRESENT ILLNESS: Dorie Root is a 77 year old female from [place], [place] here today self referral. Has h/o HTN, Rheumatic fever in her teen age requiring treatment on PCN. Also has h/o chronic vertigo/dizziness and giddiness (review of her records goes back to 2005). She was evaluated recently by Neurology. She reports also c/o vaguely described episodic non radiating chest pain discomfort to mid chest on daily basis starts in AM then goes away with the course of the day. She reports also baseline SOB that she attributed to her asthma. On Lisinopril Presents with her SOCIAL HISTORY Social History Tobacco Use Smoking status: Never ALLERGIES: Patient has no known allergies. CURRENT MEDICATIONS: Current Outpatient Medications Medication Sig topiramate (TOPAMAX) 25 mg tablet Take 1 tablet by mouth daily at bedtime. lisinopril (PRINIVIL) 10 mg tablet Take 10 mg by mouth once daily. budesonide-formotero l (SYMBICORT) 80-4.5 mcg/actuation inhaler Inhale 2 Puffs as instructed twice daily. FOSAMAX 70 MG TAB weekly ESTRACE 1 MG TAB weekly ALBUTEROL 90 MCG/ACTUATION AEROSOL INHALER as needed No current facility-administere d medications for this visit. REVIEW OF SYSTEMS: CARDIOVASCULAR: See present history. PULMONARY:No cough or sputum production GASTROINTESTINAL:no bowel changes. GENITOURINARY:no urinary symptoms. ENDOCRINE:no chronic fatigue, significant weight loss/gain, heat/cold intolerance. NEUROLOGICAL:no focal weakness, focal sensory loss, headache, visual changes, seizure activity, ataxia, speech/language loss. RHEUMATOLOGY:no joint swelling INFECTION:no fevers, chills, rigors or night sweats. SKIN:no rash HEMATOLOGY:no bruising, GI bleeding, hematuria, or spontaneous bleeding I have personally interviewed, confirmed and edited the above information if obtained by others - Yair Chaney M.D. PHYSICAL EXAMINATION: Last 3 Encounter BP Readings: Date: BP: 03/24/2023 150/65 12/23/2022 163/78 07/02/2006 140/70 Last 3 Encounter Pulse Readings: Date: Pulse: 03/24/2023 67 12/23/2022 78 07/02/2006 68 Last 3 Encounter Wt Readings: Date: Wt: 07/02/2006 53.5 kg (118 lb) BP 142/72 Pulse 60 Ht 5' 2 (1.58m) Wt 111 lb (50.3kg) SpO2 99% BMI 20.30 kg/(m2). GENERAL:No acute distress HEENT:Atraumatic, normocephalic. NECK: No JVD, no HJR, no carotid bruit, normal carotid upstrokes, no thyromegaly CARDIAC: Regular rhythm. Normal S1 and S2. No murmur, rub or gallop. LUNGS: clear to auscultation, no rhonchi, no rales, no wheezes ABDOMEN: Bowel sounds normal. EXTREMITIES: No peripheral edema NEURO: Oriented to person, place, and time. Appropriate and cooperative, no gross deficit. CARDIOVASCULAR MEDICINE TESTING: Carotid US 01/02/23 IMPRESSION RIGHT SIDE Common carotid artery: Plaque visualized without evidence of hemodynamically significant stenosis. Internal carotid artery: 0-19% stenosis. Vertebral artery: Patent and antegrade flow noted. Subclavian artery: Plaque visualized without evidence of hemodynamically significant stenosis. LEFT SIDE Common carotid artery: Plaque visualized without evidence of hemodynamically significant stenosis. Internal carotid artery: 0-19% stenosis. Vertebral artery: Patent and antegrade flow noted. Technologist: Yu Alcantara RVT Ordering physician: ISAAC MATSON Interpreting physician: OLIVIA Malhotra DO 04/28/23 ASSESSMENT/PLAN: Dorie Root is a 77 year old female from [place], [place] here today self referral. Has h/o HTN, Rheumatic fever in her teen age requiring treatment on PCN. Also has h/o chronic vertigo/dizziness and giddiness (review of her records goes back to 2005). She was evaluated recently by Neurology. She reports also c/o vaguely described episodic non radiating chest pain discomfort to mid chest on daily basis starts in AM then goes away with the course of the day. She reports also baseline SOB that she attributed to her asthma. On Lisinopril Presents with her hu (more content not included)... Normal [facility] [id number] 04-28-2023 ECG01 Ventricular Rate : 60 BPM Atrial Rate : 60 BPM P-R Interval : 148 ms QRS Duration : 74 ms Q-T Interval : 378 ms QTC Calculation(Bazett) : 378 ms Calculated P Lyerly : 86 degrees Calculated R Lyerly : 96 degrees Calculated T Lyerly : 82 degrees NORMAL SINUS RHYTHM RIGHT AXIS BORDERLINE ECG Confirmed by BABS MARRERO M.D. ([id number]) on 04/29/2023 10:24:41 AM NAME : DORIE ROOT PID : [id number] : 1945 Gender : Female Race : ORD : Procedure Date : Apr 28 2023 14:42:51 Edit Date : Apr 29 2023 10:24:46 Diagnosis: NORMAL SINUS RHYTHM RIGHT AXIS BORDERLINE ECG Confirmed by BABS MARRERO M.D. ([id number]) on 04/29/2023 10:24:41 AM Test Reason : Location : 192 : [facility] Overread By : BABS MARRERO M.D. Edited By : BABS MARRERO M.D. Referred By : , Acquired by : , Normal [facility] Office/Clini c Noteon 04-07-2023 Family Medicine Office/Clinic Note Chief Complaint questions about IBS HPI Staff Patient here with questions about her IBS questions/concerns: still sore over the left eyebrow where she lacerated it bowels doing pretty good on benefiber first couple days went every hour and now not as often is this normal? History of Present Illness Dorie Root is a 77-year-old female who presents today for a follow-up evaluation. She is accompanied by an adult male. The patient has been tolerating the Benefiber and not the Linzess. Although she has not had a bowel movement yet today. For the first couple of days, she was having a bowel movement every 1.5 hours. She has been taking 2 Benefiber in the morning and 2 at night. Review of Systems PHQ Score Initial Depression Screen Score: 0 Physical Exam Vitals & Measurements T: 36.6 ?C(Oral) HR: 88(Peripheral) RR: 14 BP: 126/78 SpO2: 100% HT: 61 in HT: 155 cm WT: 71.7 kg WT: 157.74 lb BMI: 29.84 General: alert, no acute distress Cardiovascular: regular rate and rhythm, normal peripheral perfusion Respiratory: Lungs CTA, respirations non labored Extremities: no deformity, no trauma Neurological: oriented x 4, LOC appropriate for age, CN II-XII intact, motor strength equal & normal bilaterally, speech normal Assessment/Plan 1. Irritable bowel syndrome with constipation (K58.1: Irritable bowel syndrome with constipation) This is improving given increased amounts of fiber. Patient is still having a little bit of pain intermittently. I do believe this is secondary to the use of fiber. Encouraged the patient to continue moving and if it does not get better, then let us know. 2. BMI 29.0-29.9,adult (Z68.29: Body mass index [BMI] 29.0-29.9, adult) BMI education given. 3. Over weight (E66.3: Overweight) BMI education given. Portions of this record may have been created with voice recognition artificial intelligence software, specifically [employer], [employer] and or madvertise. Substitutions may have occurred due to the inherent limitations of voice recognition and artificial intelligence software. ATTESTATION: Documentation services were performed after patient or guardian consented to allow [employer] to record this visit. JAIRON pulmonary disease specialist and provider reviewed before signing. JAIRON: Mere Alvarez. Follow-up No qualifying data available Problem List/Past Medical History Ongoing ASCVD (arteriosclerotic cardiovascular disease) Asthma BMI 21.0-21.9, adult Facial laceration HTN (hypertension) Irritable bowel syndrome with constipation Non-smoker Osteoporosis Historical No qualifying data Procedure/Surgical History Colonoscopy (10/01/2021), Dilatation and curettage: routine. Medications Albuterol (Eqv-ProAir HFA) 90 mcg/inh inhalation aerosol, 2 puff(s), Inhalation, q6hr CoQ10 100 mg oral capsule hydrochlorothiazide- lisinopril 12.5 mg-10 mg Tab, 1 tab(s), Oral, Daily, 3 refills Linzess 72 mcg oral capsule, 72 mcg= 1 cap(s), Oral, Daily, 1 refills, Not taking Multi Vitamin+ Multiple Vitamins with Zinc oral capsule, 1 cap(s), Oral, Daily Prevalite 4 g/5.5 g oral powder for reconstitution, 4 gm, Oral, Daily Symbicort 80/4.5 inhalation aerosol with adapter, 2 puff(s), Inhalation, BID topiramate 25 mg Tab, 25 mg= 1 cap(s), Oral, Bedtime Vitamin B12 Methylcobalamin 5000 mcg sublingual tablet, 5000 mcg= 1 tab(s), SubLingual, Daily Allergies No Known Allergies No Known Medication Allergies Social History Tobacco Never (less than 100 in lifetime) Tobacco Use:. Never Smokeless Tobacco Use:. Household tobacco concerns: No., 04/02/2023 Family History Family history is negative Immunizations Vaccine Date Status Comments pneumococcal 20-valent conjugate vaccine 11/20/2022 Recorded influenza virus vaccine, inactivated 06/21/2022 Recorded SARS-CoV-2 (COVID-19) mRNA BNT-162b2 vax 05/25/2021 Recorded 2022-11-20: TPV75 influenza virus vaccine, inactivated 05/18/2021 Recorded SARS-CoV-2 (COVID-19) mRNA BNT-162b2 vax 10/20/2020 Recorded 2022-11-20: TPV75 SARS-CoV-2 (COVID-19) mRNA BNT-162b2 vax 09/29/2020 Recorded 2022-11-20: TPV75 influenza virus vaccine, inactivated 06/06/2020 Recorded influenza virus vaccine, inactivated 05/26/2019 Recorded influenza virus vaccine, inactivated 2019 Recorded zoster vaccine, inactivated 05/14/2019 Recorded zoster vaccine, inactivated 03/18/2019 Recorded influenza virus vaccine, inactivated 06/02/2018 Recorded influenza virus vaccine, inactivated 06/12/2017 Recorded influenza virus vaccine, inactivated 06/10/2016 Recorded pneumococcal 13-valent vaccine 08/10/2015 Recorded zoster vaccine live 06/07/2015 Recorded influenza virus vaccine, inactivated 05/31/2015 Recorded Normal [facility] Comment on above: Result Comment: Elec tronically Signed By: Srinivasan Lezama MD\.br\Date and Time Signed: 04/07/23 12:36 EDT\.br\Electronically Co-Signed By: Caren Kay\.br\Date and Time Co-Signed: 04/02/23 11:19 EDT Ambulatory Visit Summaryon 0 04-02-2023 Ambulatory Visit Summary DORIE ROOT :1945 Visit Date:04/02/2023 Ambulatory Visit Instructions Your Diagnosis Irritable bowel syndrome with constipation BMI 29.0-29.9,adult Over weight Your Care Team Attending Physician - Srinivasan Lezama MD Primary Care Physician - Srinivasan Lezama MD This Is Your Medications List Contact prescribing physician if questions or concerns albuterol (Albuterol (Eqv-ProAir HFA) 90 mcg/inh inhalation aerosol) budesonide-formotero l (Symbicort 80/4.5 inhalation aerosol with adapter) cholestyramine (Prevalite 4 g/5.5 g oral powder for reconstitution) hydrochlorothiazide- lisinopril (hydrochlorothiazide -lisinopril 12.5 mg-10 mg Tab) linaclotide (Linzess 72 mcg oral capsule) methylcobalamin (Vitamin B12 Methylcobalamin 5000 mcg sublingual tablet) multivitamin (Multi Vitamin+) multivitamin with minerals (Multiple Vitamins with Zinc oral capsule) topiramate (topiramate 25 mg Tab) ubiquinone (CoQ10 100 mg oral capsule) Procedures Performed Colonoscopy (10/01/2021), Dilatation and curettage: routine. Discharge Vitals Temperature (Oral) 36.6 ?C Heart Rate (Peripheral) 88 Respiratory Rate 14 Blood Pressure 126/78 Height 155 cm Height 61 in Weight 71.7 kg Weight 157.74 lb BMI 29.84 What to do next Scheduled Follow-Up Appointments Friday 1:20 PM EDT With: Srinivasan Lezama MD Where: [facility] Normal [facility] Outside Mammographyon 2022 Outside Mammography [id number] #[id number]:[id number] Normal [facility] Ambulatory Visit Summaryon 0 03-25-2023 Ambulatory Visit Summary DORIE ROOT :1945 Visit Date:03/25/2023 Ambulatory Visit Instructions Your Diagnosis Facial laceration Irritable bowel syndrome with constipation HTN (hypertension) BMI 21.0-21.9, adult Non-smoker Your Care Team Attending Physician - Srinivasan Lezama MD Primary Care Physician - Srinivasan Lezama MD This Is Your Medications List linaclotide (Linzess 72 mcg oral capsule) Contact prescribing physician if questions or concerns albuterol (Albuterol (Eqv-ProAir HFA) 90 mcg/inh inhalation aerosol) budesonide-formotero l (Symbicort 80/4.5 inhalation aerosol with adapter) cholestyramine (Prevalite 4 g/5.5 g oral powder for reconstitution) hydrochlorothiazide- lisinopril (hydrochlorothiazide -lisinopril 12.5 mg-10 mg Tab) methylcobalamin (Vitamin B12 Methylcobalamin 5000 mcg sublingual tablet) multivitamin (Multi Vitamin+) multivitamin with minerals (Multiple Vitamins with Zinc oral capsule) topiramate (topiramate 25 mg Tab) ubiquinone (CoQ10 100 mg oral capsule) [Image Removed: STOP]Stop taking these medications calcium-vitamin D (Caltrate 600 + D) Procedures Performed Colonoscopy (10/01/2021), Dilatation and curettage: routine. Discharge Vitals Temperature (Oral) 36.5 ?C Heart Rate (Peripheral) 76 Respiratory Rate 14 Blood Pressure 160/62 Height 155.0 cm Height 61 in Weight 50.1 kg Weight 110.22 lb BMI 20.85 What to do next Scheduled Follow-Up Appointments Friday 9:20 AM EDT With: Lise DOS SANTOS, Srinivasan Milligan Where: [facility] Normal [address] [place] [address]- \.br\ Medications\.br\ What How Much When Why Instructions\.br\ Unchanged linaclotide (Linzess 72 mcg oral capsule) 1 Capsules By Mouth Every day Irritable bowel syndrome with constipation BMI 21.0-21.9, adult Non-smoker Pickup at [facility]/pharmacy #[id number]\.br\ Unchanged albuterol (Albuterol (Eqv-ProAir HFA) 90 mcg/ inh inhalation aerosol) 2 Puffs Inhalation Every 6 hours Contact prescribing physician if questions or concerns \.br\ Unchanged budesonide-formote rol (Symbicort 80/ 4.5 inhalation aerosol with adapter) 2 Puffs Inhalation 2 times a day Contact prescribing physician if questions or concerns \.br\ Unchanged cholestyramine (Prevalite 4 g/ 5.5 g oral powder for reconstitution) 4 Gram By Mouth Every day take 2gm daily until instructed otherwise Contact prescribing physician if questions or concerns \.br\ Unchanged hydrochlorothiazid e-lisinopril (hydrochlorothiazi de-lisinopril 12.5 mg-10 mg Tab) 1 Tablets By Mouth Every day Contact prescribing physician if questions or concerns \.br\ Unchanged methylcobalamin (Vitamin B12 Methylcobalamin 5000 mcg sublingual tablet) 1 Tablets Sublingual Every day Contact prescribing physician if questions or concerns \.br\ Unchanged multivitamin (Multi Vitamin+) Contact prescribing physician if questions or concerns \.br\ Unchanged multivitamin with minerals (Multiple Vitamins with Zinc oral capsule) 1 Capsules By Mouth Every day Contact prescribing physician if questions or concerns \.br\ Unchanged topiramate (topiramate 25 mg Tab) 1 Capsules By Mouth At bedtime Contact prescribing physician if questions or concerns \.br\ Unchanged ubiquinone (CoQ10 100 mg oral capsule) Contact prescribing physician if questions or concerns \.br\ Pharmacy Information\.br\ [id number]: [address], [place] [phone]\.br\ \.br\ What How Much When Comments\.br\ Stop Taking calcium-vitamin D (Caltrate 600 + D) See instructions pt states taking 2 tabs per day \.br\ Allergies\.br\ No Known Allergies\.br\ No Known Medication Allergies\.br\ Problems\.br\ Ongoing - Any problem that you are currently receiving treatment for.\.br\ ASCVD (arteriosclerotic cardiovascular disease)\.br\ Asthma\.br\ BMI 21.0-21.9, adult\.br\ Facial laceration\.br\ HTN (hypertension)\.br \ Irritable bowel syndrome with constipation\.br\ Non-smoker\.br\ Osteoporosis\.br\ \.br\ [facility] Family Medicine Office/Clini c Noteon 03-25-2023 Family Medicine Office/Clinic Note Chief Complaint hospital follow up suture removal fell, head injury and constipation HPI Staff patient presents for follow up [facility] Patient fell on 03/19 busted head open, sutures put in On 03/[address] facial bones: no fracture ct c spine: no fx or malalighment Ct head: lt periorbital soft tissue contusion and ? diastases of seizure vs tiny fracture Abdominal Pain: Duration: 18th and got worse by next day, hadn't moved bowels for 4-5 days Location: entire lower abd, was constipated Quality/Character: sharp pain pretty much constant Severity: severe questions/concerns: needs suture removed, has some questions about a med [facility] gave her yesterday and what to do about the constipation. Second visit to ER gave her an enema but nothing at the 1st visit History of Present Illness - Please see staff HPI. - 5 sutures placed. Needs to be removed - Constipated again. Stopped the Linzess. Review of Systems PHQ Score Initial Depression Screen Score: 1 Physical Exam Vitals & Measurements T: 36.5 ?C(Oral) HR: 76(Peripheral) RR: 14 BP: 160/62 SpO2: 98% HT: 61 in HT: 155.0 cm WT: 50.1 kg WT: 110.22 lb BMI: 20.85 General: alert, no acute distress ENMT: oral mucosa moist, Cardiovascular: regular rate and rhythm, normal peripheral perfusion, Few PVCs. Respiratory: Lungs CTA, respirations non labored Extremities: no deformity, no trauma, Facial Abrasions Noted with bruising noted over the L eye. 5 sutures removed without issues. Well healing. No signs of infection. Neurological: oriented x 4, LOC appropriate for age, CN II-XII intact, motor strength equal & normal bilaterally, speech normal Abdomen: Soft, Nontender, Non-distended, + BS Assessment/Plan 1. Facial laceration (S01.81XA: Laceration without foreign body of other part of head, initial encounter) - Well healed. - Sutures removed - Bruising noted and healing Ordered: Body Mass Index (BMI) documented 3008F Current tobacco non-user 1036F Depression Screening Negative 3352F Fall Risk Screen 2 or more w/injury 1100F Influenza immunization administered or previously received 4274F Most recent diastolic blood pressure <80 mm Hg 3078F Most recent systolic blood pressure >= 140 mm Hg 3077F 2. Irritable bowel syndrome with constipation (K58.1: Irritable bowel syndrome with constipation) - Will try the linzess again - Increase hydration. - Stop the calcium - Follow up in 1 months Ordered: linaclotide, 72 mcg = 1 cap(s), Oral, Daily, # 90 cap(s), Refills(s) 1, [facility]acy: [id number], 155, cm, 03/25/23 8:03:00 EDT, Height/Length Dosing, 50.1, kg, 03/25/23 8:03:00 EDT, Weight Dosing Body Mass Index (BMI) documented 3008F Current tobacco non-user 1036F Depression Screening Negative 3352F Fall Risk Screen 2 or more w/injury 1100F Influenza immunization administered or previously received 4274F Most recent diastolic blood pressure <80 mm Hg 3078F Most recent systolic blood pressure >= 140 mm Hg 3077F 3. HTN (hypertension) (I10: Essential (primary) hypertension) - Elevated today. - May need to change the HCTZ. 4. BMI 21.0-21.9, adult (Z68.21: Body mass index [BMI] 21.0-21.9, adult) - BMI education given Ordered: linaclotide, 72 mcg = 1 cap(s), Oral, Daily, # 90 cap(s), Refills(s) 1, [facility]: [id number], 155, cm, 03/25/23 8:03:00 EDT, Height/Length Dosing, 50.1, kg, 03/25/23 8:03:00 EDT, Weight Dosing 5. Non-smoker (Z78.9: Other specified health status) - Please continue not to smoke. Ordered: linaclotide, 72 mcg = 1 cap(s), Oral, Daily, # 90 cap(s), Refills(s) 1, Pharmacy: [facility]pharmacy #[id number], 155, cm, 03/25/23 8:03:00 EDT, Height/Length Dosing, 50.1, kg, 03/25/23 8:03:00 EDT, Weight Dosing Follow-up No qualifying data available Problem List/Past Medical History Ongoing ASCVD (arteriosclerotic cardiovascular disease) Asthma BMI 21.0-21.9, adult Facial laceration HTN (hypertension) Irritable bowel syndrome with constipation Non-smoker Osteoporosis Historical No qualifying data Procedure/Surgical History Colonoscopy (10/01/2021), Dilatation and curettage: routine. Medications Albuterol (Eqv-ProAir HFA) 90 mcg/inh inhalation aerosol, 2 puff(s), Inhalation, q6hr CoQ10 100 mg oral capsule hydrochlorothiazide- lisinopril 12.5 mg-10 mg Tab, 1 tab(s), Oral, Daily, 3 refills Linzess 72 mcg oral capsule, 72 mcg= 1 cap(s), Oral, Daily, 1 refills Multi Vitamin+ Multiple Vitamins with Zinc oral capsule, 1 cap(s), Oral, Daily Prevalite 4 g/5.5 g oral powder for reconstitution, 4 gm, Oral, Daily Symbicort 80/4.5 inhalation aerosol with adapter, 2 puff(s), Inhalation, BID topiramate 25 mg Tab, 25 mg= 1 cap(s), Oral, Bedtime Vitamin B12 Methylcobalamin 5000 mcg sublingual tablet, 5000 mcg= 1 tab(s), SubLingual, Daily Allergies No Known Allergies No Known Medication Allergies Social History Tobacco Never (less than 100 in lifetime) Tobacco U (more content not included)... Normal [facility] Comment on above: Result Comment: Elec tronically Signed By: Lise DOS SANTOS, Srinivasan Lynn.br\Date and Time Signed: 03/25/23 08:47 EDT CNOVon 03-24-2023 CNOV Office Visit (NEURAV) DORIE ROOT ([id number]) 1945 F Date Time Provider Department 03/24/23 1:40 PM ISAAC MATSON NEURAV During your visit today, we recorded the following information about you: Pulse Blood pressure 67/minute 150/65 Isaac Matson MD 03/24/2023 1:47 PM Signed NEUROLOGY PROGRESS NOTE Dorie Root is a 77 year old female. Who has a history of dizziness comes in for follow up. Interval History Dorie Root is a 77 year old female, with a history of asthma and hypertension who presents with vertigo/ataxia. Patient was in her usual state of health May 2022 out of the blue she felt dizzy and vertiginous. She had this sensation of falling backwards when she stands up and gait unsteadiness. She had been seen by other doctors to, was tried on meclizine but to no avail. She also has had therapy but to no avail. Symptoms have not changed since May. Patient had an MRI of the brain that came back unremarkable. Carotid duplex showed no significant hemodynamic stenosis. Nortriptyline seems to have helped. She she states that she is not as dizzy as much as she had prior to nortriptyline however the nortriptyline seems to be giving her constipation. Lastly the patient was in her usual state of health she has a history of irritable bowel syndrome and was trying to strain on the toilet and apparently she may have passed out. There is no note of tongue biting or incontinence. She had a CT of the brain which they were told was unremarkable. She had some stitches in the left eyebrow. would like to change the medication that would cause less constipation. We will try Topamax 25 mg at bedtime. There is no problem list on file for this patient. No past surgical history on file. Current Outpatient Medications on File Prior to Visit Medication Sig lisinopril (PRINIVIL) 10 mg tablet Take 10 mg by mouth once daily. budesonide-formotero l (SYMBICORT) 80-4.5 mcg/actuation inhaler Inhale 2 Puffs as instructed twice daily. FOSAMAX 70 MG TAB weekly ALBUTEROL 90 MCG/ACTUATION AEROSOL INHALER as needed ESTRACE 1 MG TAB weekly No current facility-administere d medications on file prior to visit. Social History Tobacco Use Smoking status: Never family history is not on file. GENERAL:No weight loss, malaise or fevers., SEE HPI HEENT:No changes in hearing or vision, no nose bleeds or other nasal problems NECK:Negative for lumps, goiter, pain and significant neck swelling RESPIRATORY: Negative for cough, wheezing or shortness of breath. CARDIOVASCULAR: Negative for chest pain, leg swelling or palpitations. GASTROINTESTINAL: Negative for abdominal discomfort, blood in stools or black stools or change in bowel habits See HPI. All systems reviewed and are negative 03/24/23 1327 BP: 150/65 Pulse: 67 SpO2: 96% PHYSICAL EXAMINATION: General appearance: well appearing, alert, in no acute distress Neck: Supple Carotid Auscultation: Without bruits Lungs: Lungs clear to auscultation CVS: RRR without murmur Neurological exam: MENTAL STATUS: Alert, oriented to person, place and time and Follows commands CRANIAL NERVES: PERRLA, EOM's intact, Face symmetric, and Tongue protrudes midline MOTOR: No drift MOTOR STRENGTH: Upper and lower extremity 5/5 bilaterally REFLEXES: UE and LE reflexes are equal and reactive SENSATION: Intact light touch COORDINATION: Finger-to- nose-finger intact bilaterally GAIT: Normal-based IMPRESSION: 1. Dizziness PLAN: Any problems or concerns to call me or primary care physician immediately or go straight to the emergency department Return in about 3 months (around 06/24/2023). ASSESSMENT/PLAN: 1. Dizziness and giddiness - ICD9: 780.4, ICD10: R42 Isaac Matson MD Patient evaluated on the date of the service which included preparing to see the patient, [id number] patient care, completing clinical documentation, obtaining and/or reviewing separately obtained history, performing a medically appropriate examination, counseling and educating the patient/family/careg iver, and ordering medications, tests, or procedures. SIGNATURE: Isaac Matson MD PATIENT NAME: Dorie Root DATE: March 24, 2023 TIME: 1:43 PM Referring Provider: ISAAC MATSON [[id number]] Allergies As of Date: 03/24/2023 (No Known Allergies) Date Reviewed: 03/24/2023 Reviewed by: Jacob Zavala MA - Fully Assessed Reason for Visit: Established Patient Follow-Up [[id number]] Primary Visit Diagnosis:Dizziness and giddiness [R42] Order(s):topiramate (TOPAMAX) 25 mg tabletTake 1 tablet by mouth daily at bedtime.Disp: 30 tabletRfl: 2 Prescriptions as of 03/24/2023 - topiramate (TOPAMAX) 25 mg tablet Take 1 tablet by mouth daily at bedtime. - lisinopril (PRINIVIL) 10 mg tablet Take 10 mg by mouth once daily. - budesonide-formotero l ( (more content not included)... Normal [facility] RAD - MISCon 03-24-2023 RAD - MISC [id number] #1.00CD:127 Normal [facility] RAD - CT Reporton 03-20-2023 RAD - CT Report [id number] #1.00CD:127 Normal [facility] RAD - CT Report [id number] #1.00CD:127 Normal [facility] Lab Reportson 02-26-2023 Lab Reports [id number] #1.00CD:127 Normal [facility] Lab Reportson 02-18-2023 Lab Reports [id number]# 1.00CD:127 Normal [facility] Ambulatory Visit Summaryon 0 02-17-2023 Ambulatory Visit Summary DORIE ROOT :1945 Visit Date:02/17/2023 Ambulatory Visit Instructions Your Diagnosis Irritable bowel syndrome with constipation BMI 21.0-21.9, adult Non-smoker Your Care Team Attending Physician - Arron MORALES, Roxane Connell Primary Care Physician - EDITH DOS SANTOS, JULIANO Youngblood This Is Your Medications List albuterol (Albuterol (Eqv-ProAir HFA) 90 mcg/inh inhalation aerosol) budesonide-formotero l (Symbicort 80/4.5 inhalation aerosol with adapter) calcium-vitamin D (Caltrate 600 + D) cholestyramine (Prevalite 4 g/5.5 g oral powder for reconstitution) hydrochlorothiazide- lisinopril (hydrochlorothiazide -lisinopril 12.5 mg-10 mg Tab) linaclotide (Linzess 72 mcg oral capsule) methylcobalamin (Vitamin B12 Methylcobalamin 5000 mcg sublingual tablet) multivitamin (Multi Vitamin+) multivitamin with minerals (Multiple Vitamins with Zinc oral capsule) nortriptyline (nortriptyline 10 mg Cap) ubiquinone (CoQ10 100 mg oral capsule) Procedures Performed Colonoscopy (10/01/2021), Dilatation and curettage: routine. Discharge Vitals Heart Rate (Peripheral) 76 Respiratory Rate 16 Blood Pressure 128/70 Height 155.0 cm Height 61 in Weight 51.2 kg Weight 112.64 lb BMI 21.31 Medications What How Much When Why Instructions New linaclotide (Linzess 72 mcg oral capsule) 1 Capsules By Mouth Every day Irritable bowel syndrome with constipation BMI 21.0-21.9, adult Non-smoker Refills: 1 Pickup at [facility]/pharmacy #[id number] Unchanged albuterol (Albuterol (Eqv-ProAir HFA) 90 mcg/ inh inhalation aerosol) 2 Puffs Inhalation Every 6 hours Unchanged budesonide-formotero l (Symbicort 80/ 4.5 inhalation aerosol with adapter) 2 Puffs Inhalation 2 times a day Unchanged calcium-vitamin D (Caltrate 600 + D) See instructions pt states taking 2 tabs per day Unchanged cholestyramine (Prevalite 4 g/ 5.5 g oral powder for reconstitution) 4 Gram By Mouth Every day take 2gm daily until instructed otherwise Unchanged hydrochlorothiazide- lisinopril (hydrochlorothiazide -lisinopril 12.5 mg-10 mg Tab) 1 Tablets By Mouth Every day Unchanged methylcobalamin (Vitamin B12 Methylcobalamin 5000 mcg sublingual tablet) 1 Tablets Sublingual Every day Unchanged multivitamin (Multi Vitamin+) Unchanged multivitamin with minerals (Multiple Vitamins with Zinc oral capsule) 1 Capsules By Mouth Every day Unchanged nortriptyline (nortriptyline 10 mg Cap) 1 Capsules By Mouth Every day Unchanged ubiquinone (CoQ10 100 mg oral capsule) Pharmacy Information [facility]/pharmacy #[id number]: [address], [place] [id number] [phone] Allergies No Known Allergies No Known Medication Allergies Problems Ongoing - Any problem that you are currently receiving treatment for. ASCVD (arteriosclerotic cardiovascular disease) Asthma BMI 21.0-21.9, adult HTN (hypertension) Irritable bowel syndrome with constipation Non-smoker Osteoporosis Normal [facility] Family Medicine Office/Clini c Noteon 02-17-2023 Family Medicine Office/Clinic Note Chief Complaint pt here c/o constipation HPI Staff Dorie is a 77 year old female presenting Constipation Pt states she hasn't had a bowel movement since 02/13/2023 OTC: Patient has been using Miralax and took Senna the last 2 days, denies and abdominal pain or discomfort Pt was seen on January 21, 2023 for IBS flair up Questions/Concerns: none History of Present Illness pt presents today c/o no BM since . she stopped taking her prevalite. Is taking miralax and senna Review of Systems PHQ Score Initial Depression Screen Score: 0 ROS - Provider Constitutional: no fever, no chills, no sweats, no fatigue Respiratory: no shortness of breath, no cough, no orthopnea, no wheezing. Cardiovascular: no chest pain, no palpitations, no edema. Neurologic: no headache, no dizziness, no numbness, no weakness. : consitpation Physical Exam Vitals & Measurements HR: 76(Peripheral) RR: 16 BP: 128/70 SpO2: 98% HT: 61 in HT: 155.0 cm WT: 51.2 kg WT: 112.64 lb BMI: 21.31 General: alert, no acute distress ENMT: oral mucosa moist, no pharyngeal erythema or exudate Cardiovascular: regular rate and rhythm, normal peripheral perfusion Respiratory: Lungs CTA, respirations non labored Extremities: no deformity, no trauma Neurological: oriented x 4, LOC appropriate for age, CN II-XII intact, motor strength equal & normal bilaterally, speech normal : No BM since Assessment/Plan 1. Irritable bowel syndrome with constipation (K58.1: Irritable bowel syndrome with constipation) pt presents today with no BM since . Last visit she was having diarrhea. discussed IBS at length. pt is very concerned that she can not leave the house anymore because she is not sure what her bowels are going to do. encouraged her to use dulcolax suppository to help with the constipation. will order linzess. unsure if insurance will cover it. Pt is eating gluten free diet. Ordered: linaclotide, 72 mcg = 1 cap(s), Oral, Daily, # 30 cap(s), Refills(s) 1, Pharmacy: [id number], 155, cm, 02/17/23 11:37:00 EDT, Height/Length Dosing, 51.2, kg, 02/17/23 11:37:00 EDT, Weight Dosing 2. BMI 21.0-21.9, adult (Z68.21: Body mass index [BMI] 21.0-21.9, adult) BMI education complete Ordered: linaclotide, 72 mcg = 1 cap(s), Oral, Daily, # 30 cap(s), Refills(s) 1, Pharmacy: [id number], 155, cm, 02/17/23 11:37:00 EDT, Height/Length Dosing, 51.2, kg, 02/17/23 11:37:00 EDT, Weight Dosing 3. Non-smoker (Z78.9: Other specified health status) continue not smoking Ordered: linaclotide, 72 mcg = 1 cap(s), Oral, Daily, # 30 cap(s), Refills(s) 1, Pharmacy: [id number], 155, cm, 02/17/23 11:37:00 EDT, Height/Length Dosing, 51.2, kg, 02/17/23 11:37:00 EDT, Weight Dosing Follow-up No qualifying data available Problem List/Past Medical History Ongoing ASCVD (arteriosclerotic cardiovascular disease) Asthma BMI 21.0-21.9, adult HTN (hypertension) Irritable bowel syndrome with constipation Non-smoker Osteoporosis Historical No qualifying data Procedure/Surgical History Colonoscopy (10/01/2021), Dilatation and curettage: routine. Medications Albuterol (Eqv-ProAir HFA) 90 mcg/inh inhalation aerosol, 2 puff(s), Inhalation, q6hr Caltrate 600 + D, See Instructions CoQ10 100 mg oral capsule hydrochlorothiazide- lisinopril 12.5 mg-10 mg Tab, 1 tab(s), Oral, Daily, 3 refills Linzess 72 mcg oral capsule, 72 mcg= 1 cap(s), Oral, Daily, 1 refills Multi Vitamin+ Multiple Vitamins with Zinc oral capsule, 1 cap(s), Oral, Daily nortriptyline 10 mg Cap, 10 mg= 1 cap(s), Oral, Daily Prevalite 4 g/5.5 g oral powder for reconstitution, 4 gm, Oral, Daily, Not taking Symbicort 80/4.5 inhalation aerosol with adapter, 2 puff(s), Inhalation, BID Vitamin B12 Methylcobalamin 5000 mcg sublingual tablet, 5000 mcg= 1 tab(s), SubLingual, Daily Allergies No Known Allergies No Known Medication Allergies Social History Tobacco Never (less than 100 in lifetime) Tobacco Use:. Never Smokeless Tobacco Use:. Household tobacco concerns: No., 02/17/2023 Family History Family history is negative Immunizations Vaccine Date Status Comments pneumococcal 20-valent conjugate vaccine 11/20/2022 Recorded influenza virus vaccine, inactivated 06/21/2022 Recorded SARS-CoV-2 (COVID-19) mRNA BNT-162b2 vax 05/25/2021 Recorded 2022-11-20: TPV75 influenza virus vaccine, inactivated 05/18/2021 Recorded SARS-CoV-2 (COVID-19) mRNA BNT-162b2 vax 10/20/2020 Recorded 2022-11-20: TPV75 SARS-CoV-2 (COVID-19) mRNA BNT-162b2 vax 09/29/2020 Recorded 2022-11-20: TPV75 influenza virus vaccine, inactivated 06/06/2020 Recorded influenza virus vaccine, inactivated 05/26/2019 Recorded influenza virus vaccine, inactivated 2019 Recorded zoster vaccine, inactivated 05/14/2019 Recorded zoster vaccine, inactivated 03/18/2019 Recorded influenza virus vaccine, inactivated 06/02/2018 Recorded influenza virus vaccine, inactivated (more content not included)... Normal [facility] Comment on above: Result Comment: Elec tronically Signed By: Roxane Barraza.[email or web address]\Date and Time Signed: 02/17/23 12:12 EDT Lab Reportson 02-03-2023 Lab Reports [id number] #1.00CD:127 Normal [facility] Lab Reportson 01-22-2023 Lab Reports [id number] #1.00CD:127 Normal [facility] CBC AUTO DIFFon 01-21-2023 BASO # 0.1 103/ul Normal 0.0-0.[address] [facility] Comment on above: Performed By: #### C BC #### [facility] [address] [place] [address] Dr. Mina Perkins Basophils/100 WBC (Bld) 0.7 % Normal 0.2-2.[address] [facility] Comment on above: Performed By: #### C BC #### [facility] [address] [address] [address] Mina Perkins EO # 0.1 103/ul Normal 0.0-0.[address] [facility] Comment on above: Performed By: #### C BC #### [facility] [address] [address] [address] Mina Perkins Eosinophils/100 WBC (Bld) 1.2 % Normal 0.9-7.[address] [facility] Comment on above: Performed By: #### C BC #### [facility] [address] [address] [address] Mina Perkins Erythrocyte distribution width (RBC) [Ratio] 12.2 % Normal 11.0-15.[address] [facility] Comment on above: Performed By: #### C BC #### [facility] [address] [place] [address] Dr. Mina Perkins Hematocrit (Bld) [Volume fraction] 44.0 % Normal 36.0-48.[address] [facility] Comment on above: Performed By: #### C BC #### [facility] [address] [place] [address] Dr. Mina Perkins Hemoglobin (Bld) [Mass/Vol] 15.4 g/dL Normal 12.0-16.[address] [facility] Comment on above: Performed By: #### C BC #### [facility] [address] [place] [address] Dr. Mina Perkins IG # 0.02 10e3/ul Normal 0.00-0.03 [facility] Comment on above: Performed By: #### C BC #### [facility] [address] [place] [address] Dr. Mina Perkins IG % 0.2 % Normal 0.0-0.[address] [facility] Comment on above: Performed By: #### C BC #### [facility] [address] [place] [address] Dr. Mina Perkins LYMPH # 1.8 103/ul Normal 1.2-3.8 [facility] Comment on above: Performed By: #### C BC #### [facility] [address] [place] [address] Dr. Mina Perkins Lymphocytes/100 WBC (Bld) 19.2 % Critically low 20.5-60.[address] [facility] Comment on above: Performed By: #### C BC #### [facility] [address] [place] [address] Dr. Mina Perkins MANUAL DIFF REQ NO Normal [facility] Comment on above: Performed By: #### C BC #### [facility] [address] [place] [address] Dr. Mina Perkins MCH (RBC) [Entitic mass] 30.8 pg Normal 26.7-34.0 [facility] Comment on above: Performed By: #### C BC #### [facility] [address] [place] [address] Dr. Mina Perkins MCHC (RBC) [Mass/Vol] 35.0 g/dL Normal 29.9-35.2 [facility] Comment on above: Performed By: #### C BC #### [facility] [address] [address] [address] Mina Perkins MCV (RBC) [Entitic vol] 88.0 fL Normal 81.0-99.[address] [facility] Comment on above: Performed By: #### C BC #### [facility] [address] [address] [address] Mina Perkins MONO # 0.7 103/ul Normal 0.3-0.8 [facility] Comment on above: Performed By: #### C BC #### [facility] [address] [place] [address] Dr. Mina Perkins Monocytes/100 WBC (Bld) 7.5 % Normal 1.7-12.[address] [facility] Comment on above: Performed By: #### C BC #### [facility] [address] [place] [address] Dr. Mina Perkins NEUT # 6.8 103/ul Critically high 1.4-6.[address] [facility] Comment on above: Performed By: #### C BC #### [facility] [address] [place] [address] Dr. Mina Perkins Neutrophils/100 WBC (Bld) 71.2 % Normal 43.0-75.[address] [facility] Comment on above: Performed By: #### C BC #### [facility] [address] [place] [address] Dr. Mina Perkins Platelet mean volume (Bld) [Entitic vol] 9.8 fL Normal 9.5-13.[address] [facility] Comment on above: Performed By: #### C BC #### [facility] [address] [place] [address] Dr. Mina Perkins PLT 278 103/ul Normal 150-450 [facility] Comment on above: Performed By: #### C BC #### [facility] [address] [place] [address] Dr. Mina Perkins RBC 5.00 106/ul Normal 4.20-5.40 [facility] Comment on above: Performed By: #### C BC #### [facility] [address] [place], [place] [id number] Dr. Mina Perkins WBC 9.5 103/ul Normal 4.0-11.0 [facility] Comment on above: Performed By: #### C #### [facility] [address] [place], [place] [address] Dr. Mina Perkins Family Medicine Office/Clini c Noteon 01-21-2023 Family Medicine Office/Clinic Note Chief Complaint diarrhea HPI Staff Acute: Current issues/complaints: Diarrhea complaints of diarrhea Onset: many years, chronic. Had it Friday and Today. Nothing to eat all day. Dx with IBS by [facility] many years ago. Characteristics: Doesn't matter what pt eats, straight liquid, brown in color. Last friday had liquid stool first then solid stool every hour after for about 6-7 hrs. OTC tried: MiraLAX History of Present Illness pt presents today with flare up of IBS. Pt states she has had this for many many years. Last colonoscopy a little over a year ago in [place]. Review of Systems PHQ Score Initial Depression Screen Score: 0 ROS - Provider Constitutional: no fever, no chills, no sweats, no fatigue Respiratory: no shortness of breath, no cough, no orthopnea, no wheezing. Cardiovascular: no chest pain, no palpitations, no edema. Neurologic: no headache, no dizziness, no numbness, no weakness. GI: diarrhea Physical Exam Vitals & Measurements HR: 70(Peripheral) BP: 130/50 SpO2: 98% HT: 61 in HT: 155 cm WT: 52.1 kg WT: 114.62 lb BMI: 21.69 General: alert, no acute distress ENMT: oral mucosa moist, no pharyngeal erythema or exudate Cardiovascular: regular rate and rhythm, normal peripheral perfusion Respiratory: Lungs CTA, respirations non labored Extremities: no deformity, no trauma Neurological: oriented x 4, LOC appropriate for age, CN II-XII intact, motor strength equal & normal bilaterally, speech normal GI: pt states she has diarrhea then several hours later she will have formed stools every hour for the rest of the day Assessment/Plan 1. Irritable bowel syndrome (K58.9: Irritable bowel syndrome without diarrhea) pt presents today for IBS flare up. she is concerned because she is [place] and she doesn't want to have accidents on the train. she stopped taking prevalite 5-6 weeks ago because she became constipated. then she started taking miralax. encouraged pt to start taking 1/2 scoop (2gm) daily instead of a full scoop. to see if that will regulate her. discussed IBS diet at length with ideas of foods to avoid especially prior to and during her trip. 4. BMI 21.0-21.9, adult (Z68.21: Body mass index [BMI] 21.0-21.9, adult) BMI education complete Ordered: Body Mass Index (BMI) documented 3008F Current tobacco non-user 1036F Depression Screening Negative 3352F Most recent diastolic blood pressure <80 mm Hg 3078F Patient screen for fall risk: no falls in last year or 1 fall with no injury in last year 1101F Systolic BP <130 mm Hg (Most Recent) 3074F 5. Non-smoker (Z78.9: Other specified health status) continue not smoking Ordered: Body Mass Index (BMI) documented 3008F Current tobacco non-user 1036F Depression Screening Negative 3352F Most recent diastolic blood pressure <80 mm Hg 3078F Patient screen for fall risk: no falls in last year or 1 fall with no injury in last year 1101F Systolic BP <130 mm Hg (Most Recent) 3074F Follow-up No qualifying data available Patient Education BMI for Adults Problem List/Past Medical History Ongoing ASCVD (arteriosclerotic cardiovascular disease) Asthma BMI 21.0-21.9, adult HTN (hypertension) Non-smoker Osteoporosis Historical No qualifying data Procedure/Surgical History Colonoscopy (10/01/2021), Dilatation and curettage: routine. Medications Albuterol (Eqv-ProAir HFA) 90 mcg/inh inhalation aerosol, 2 puff(s), Inhalation, q6hr Caltrate 600 + D, See Instructions CoQ10 100 mg oral capsule hydrochlorothiazide- lisinopril 12.5 mg-10 mg Tab, 1 tab(s), Oral, Daily, 3 refills Multi Vitamin+ Multiple Vitamins with Zinc oral capsule, 1 cap(s), Oral, Daily nortriptyline 10 mg Cap, 10 mg= 1 cap(s), Oral, Daily Prevalite 4 g/5.5 g oral powder for reconstitution, 4 gm, Oral, Daily, Not taking Symbicort 80/4.5 inhalation aerosol with adapter, 2 puff(s), Inhalation, BID Vitamin B12 Methylcobalamin 5000 mcg sublingual tablet, 5000 mcg= 1 tab(s), SubLingual, Daily Allergies No Known Allergies No Known Medication Allergies Social History Tobacco Never (less than 100 in lifetime) Tobacco Use:. Never Smokeless Tobacco Use:. Household tobacco concerns: No., 01/21/2023 Family History Family history is negative Immunizations Vaccine Date Status Comments pneumococcal 20-valent conjugate vaccine 11/20/2022 Recorded influenza virus vaccine, inactivated 06/21/2022 Recorded SARS-CoV-2 (COVID-19) mRNA BNT-162b2 vax 05/25/2021 Recorded 2022-11-20: TPV75 influenza virus vaccine, inactivated 05/18/2021 Recorded SARS-CoV-2 (COVID-19) mRNA BNT-162b2 vax 10/20/2020 Recorded 2022-11-20: TPV75 SARS-CoV-2 (COVID-19) mRNA BNT-162b2 vax 09/29/2020 Recorded 2022-11-20: TPV75 influenza virus vaccine, inactivated 06/06/2020 Recorded influenza virus vaccine, inactivated 05/26/2019 Recorded influenza virus vaccine, inactivated 2019 Recorded zoster vaccine, inactivated (more content not included)... Normal [facility] Comment on above: Result Comment: Elec tronically Signed By: Roxane Barraza\.br\Date and Time Signed: 01/21/23 14:35 EDT LIPID PROFILEon 01-21-2023 CHOL-HDL RATIO NORM SEE BELOW Normal [facility] Comment on above: Result Comment: 3.3 - 4.4 LOW RISK 4.4 - 7.1 AVERAGE RISK 7.1 - 11.0 MODERATE RISK >11.0 HIGH RISK Performed By: #### T SH, CMP, LIPID #### [facility] [address] [place], [place] [address] Dr. Mina Perkins Cholesterol [Mass/Vol] 199 mg/dL Normal <=[address] [facility] Comment on above: Performed By: #### T SH, CMP, LIPID #### [facility] [address] [place], [place] [address] Dr. Mina Perkins Cholesterol in HDL [Mass/Vol] 84 mg/dL Critically high 40-[address] [facility] Comment on above: Performed By: #### T SH, CMP, LIPID #### [facility] [address] [address] [address] Mina Perkins Cholesterol in LDL [Mass/Vol] 102.2 mg/dL Normal [facility] Comment on above: Performed By: #### T SH, CMP, LIPID #### [facility] [address] [place] [address] Dr. Mina Perkins Cholesterol.total/Ch olesterol in HDL [Mass ratio] 2.4 {ratio} Normal [facility] Comment on above: Performed By: #### T SH, CMP, LIPID #### [facility] [address] [place] [address] Dr. Mina Perkins HDL NORMAL > or = 60 mg/dl - LOW CARDIOVASCULAR RISK <40 mg/dl - HIGH CARDIOVASCULAR RISK Normal [facility] Comment on above: Performed By: #### T TRENA, CMP, LIPID #### [facility] [address] [place] [address] Dr. Mina Perkins LDL CALC NORMAL SEE BELOW Normal [facility] Comment on above: Result Comment: <100 mg/dl OPTIMAL 100 - 129 mg/dl NEAR OR ABOVE OPTIMAL 130 - 159 mg/dl BORDERLINE HIGH 160 - 189 mg/dl HIGH >190 mg/dl VERY HIGH Performed By: #### T SH, CMP, LIPID #### [facility] [address] [place] [address] Dr. Mina Perkins Triglyceride [Mass/Vol] 64 mg/dL Normal <=150 [facility] Comment on above: Performed By: #### T SH, CMP, LIPID #### [facility] [address] [place] [address] Dr. Mina Perkins VLDL CALC 12.8 mg/dL Normal [facility] Comment on above: Performed By: #### T SH, CMP, LIPID #### [facility] [address] [place] [address] Dr. Mina Perkins PROF 14(COMP METB)on 023 Albumin [Mass/Vol] 4.2 g/dL Normal 3.4-5.[address] [facility] Comment on above: Performed By: #### T SH, CMP, LIPID #### [facility] [address] [address] [address] Mina Perkins Albumin/Globulin [Mass ratio] 1.1 {ratio} Normal [facility] Comment on above: Performed By: #### T SH, CMP, LIPID #### [facility] [address] [address] [address] Mina Perkins ALP [Catalytic activity/Vol] 79 U/L Normal 46-[address] [facility] Comment on above: Performed By: #### T SH, CMP, LIPID #### [facility] [address] [address] [address] Mina Perkins ALT [Catalytic activity/Vol] 30 U/L Normal 14-[address] [facility] Comment on above: Performed By: #### T SH, CMP, LIPID #### [facility] [address] [place] [address] Dr. Mina Perkins Anion gap [Moles/Vol] 15.1 mmol/L Normal [facility] Comment on above: Performed By: #### T SH, CMP, LIPID #### [facility] [address] [place] [address] Dr. Mina Perkins AST [Catalytic activity/Vol] 39 U/L Critically high 15-[address] [facility] [address] [facility] Comment on above: Performed By: #### T SH, CMP, LIPID #### [facility] [address] [address] [address] Mina Perkins Bilirubin [Mass/Vol] 0.9 mg/dL Normal 0.2-1.[address] [facility] Comment on above: Performed By: #### T SH, CMP, LIPID #### [facility] [address] [address] [address] Mina Perkins Calcium [Mass/Vol] 9.7 mg/dL Normal 8.5-10.[address] [facility] Comment on above: Performed By: #### T SH, CMP, LIPID #### [facility] [address] [place] [address] Dr. Mina Perkins Chloride [Moles/Vol] 99 mmol/L Normal 98-107 [facility] Comment on above: Performed By: #### T SH, CMP, LIPID #### [facility] [address] [place] [address] Dr. Mina Perkins CO2 [Moles/Vol] 27.3 mmol/L Normal 21.0-32.[address] [facility] Comment on above: Performed By: #### T SH, CMP, LIPID #### [facility] [address] [place] [address] Dr. Mina Perkins Creatinine [Mass/Vol] 0.74 mg/dL Normal 0.55-1.02 [facility] Comment on above: Performed By: #### T SH, CMP, LIPID #### [facility] [address] [place] [address] Dr. Mina Perkins EGFR-AF TURKS AND CAICOS ISLANDER >60 Normal >=[address] [facility] Comment on above: Performed By: #### T SH, CMP, LIPID #### [facility] [address] [place] [address] Dr. Mina Perkins EGFR-NON AF TURKS AND CAICOS ISLANDER >60 Normal >=60 [facility] Comment on above: Performed By: #### T SH, CMP, LIPID #### [facility] [address] [place] [address] Dr. Mina Perkins Globulin (S) [Mass/Vol] 3.8 g/dL Normal [facility] Comment on above: Performed By: #### T SH, CMP, LIPID #### [facility] [address] [place] [address] Dr. Mina Perkins Glucose [Mass/Vol] 85 mg/dL Normal 74-106 [facility] Comment on above: Performed By: #### T SH, CMP, LIPID #### [facility] [address] [place] [address] Dr. Mina Perkins Potassium [Moles/Vol] 4.4 mmol/L Normal 3.5-5.1 [facility] Comment on above: Performed By: #### T SH, CMP, LIPID #### [facility] [address] [place] [address] Dr. Mina Perkins Protein [Mass/Vol] 8.0 g/dL Normal 6.4-8.2 [facility] Comment on above: Performed By: #### T SH, CMP, LIPID #### [facility] [address] [address] [address] Mina Perkins Sodium [Moles/Vol] 137 mmol/L Normal 136-[address] [facility] Comment on above: Performed By: #### T SH, CMP, LIPID #### [facility] [address] [address] [address] Mina Perkins Urea nitrogen [Mass/Vol] 15.0 mg/dL Normal 7.0-18.[address] [facility] Comment on above: Performed By: #### T SH, CMP, LIPID #### [facility] [address] [address] [address] Mina Perkins Urea nitrogen/Creatinine [Mass ratio] 20.3 mg/mg Normal [facility] Comment on above: Performed By: #### T SH, CMP, LIPID #### [facility] [address] [place] [address] Dr. Mina Perkins Patient Educationon 01-22-20 Patient Education Nutrition BMI for Adults What is BMI? Body mass index (BMI) is a number that is calculated from a person's weight and height. BMI can help estimate how much of a person's weight is composed of fat. BMI does not measure body fat directly. Rather, it is an alternative to procedures that directly measure body fat, which can be difficult and expensive. BMI can help identify people who may be at higher risk for certain medical problems. What are BMI measurements used for? BMI is used as a screening tool to identify possible weight problems. It helps determine whether a person is obese, overweight, a healthy weight, or underweight. BMI is useful for: ? Identifying a weight problem that may be related to a medical condition or may increase the risk for medical problems. ? Promoting changes, such as changes in diet and exercise, to help reach a healthy weight. BMI screening can be repeated to see if these changes are working. How is BMI calculated? BMI involves measuring your weight in relation to your height. Both height and weight are measured, and the BMI is calculated from those numbers. This can be done either in [place] ([place] or metric measurements. Note that charts and online BMI calculators are available to help you find your BMI quickly and easily without having to do these calculations yourself. To calculate your BMI in [place] ([place] measurements: 1. Measure your weight in pounds (lb). 2. Multiply the number of pounds by 703. ? For example, for a person who weighs 180 lb, multiply that number by 703, which equals 126,540. 3. Measure your height in inches. Then multiply that number by itself to get a measurement called inches squared. ? For example, for a person who is 70 inches tall, the inches squared measurement is 70 inches x 70 inches, which equals 4,900 inches squared. 4. Divide the total from step 2 (number of lb x 703) by the total from step 3 (inches squared): 126,540 ? 4,900 = 25.8. This is your BMI. To calculate your BMI in metric measurements: 1. Measure your weight in kilograms (kg). 2. Measure your height in meters (m). Then multiply that number by itself to get a measurement called meters squared. ? For example, for a person who is 1.75 m tall, the meters squared measurement is 1.75 m x 1.75 m, which is equal to 3.1 meters squared. 3. Divide the number of kilograms (your weight) by the meters squared number. In this example: 70 ? 3.1 = 22.6. This is your BMI. What do the results mean? BMI charts are used to identify whether you are underweight, normal weight, overweight, or obese. The following guidelines will be used: ? Underweight: BMI less than 18.5. ? Normal weight: BMI between 18.5 and 24.9. ? Overweight: BMI between 25 and 29.9. ? Obese: BMI of 30 or above. Keep these notes in mind: ? Weight includes both fat and muscle, so someone with a muscular build, such as an athlete, may have a BMI that is higher than 24.9. In cases like these, BMI is not an accurate measure of body fat. ? To determine if excess body fat is the cause of a BMI of 25 or higher, further assessments may need to be done by a health care provider. ? BMI is usually interpreted in the same way for men and women. Where to find more information For more information about BMI, including tools to quickly calculate your BMI, go to these websites: ? Centers for Disease Control and Prevention: www.cdc.gov ? [place] [employer] Association: www.heart.org ? National Heart, Lung, and Blood [place]: www.nhlbi.nih.gov Summary ? Body mass index (BMI) is a number that is calculated from a person's weight and height. ? BMI may help estimate how much of a person's weight is composed of fat. BMI can help identify those who may be at higher risk for certain medical problems. ? BMI can be measured using Fijian measurements or metric measurements. ? BMI charts are used to identify whether you are underweight, normal weight, overweight, or obese. This information is not intended to replace advice given to you by your health care provider. Make sure you discuss any questions you have with your health care provider. Document Revised: 05/10/2020 Document Reviewed: 03/17/2020 [employer] Patient Education ? 2022 [employer] Normal [facility] TSHon 01-21-2023 TSH 1.896 uIU/mL Normal 0.358-3.[address] [facility] Comment on above: Performed By: #### T SH, CMP, LIPID #### [facility] [address] [address] [address] Mina Perkins [facility] 01-16-2023 [facility] HNO ID: [id number] Author: RT Grabiel(R) Service: Radiology Author Type: Technologist Type: Allied Health Filed: 01/16/2023 1:39 PM Note Text: Radiology Service Progress Note PATIENT NAME: Dorie Root DATE OF SERVICE: January 16, 2023 TIME: 1:25 PM PATIENT IDENTITY VERIFICATION COMPLETED USING TWO (2) IDENTIFIERS: Name and Date of confirmed by patient verbally. FALL SCREENING: Has the patient had 2 falls in the last year or 1 fall with injury or currently using an Ambulatory Assistive Device (Walker, Cane, Wheelchair, Crutches, etc.)? No PATIENT GENDER DATA: Female. status: : No status: NO. PATIENT RELEVANT IMPLANT DATA REVIEWED: Yes RADIOLOGY DEPARTMENT: MR; Exam(s) Completed: Head: Routine Brain PERIPHERAL IV DATA: Not applicable SIGNED BY: RT Grabiel(R) Courtney Charles(R) MR January 16, 2023 1:25 PM Normal [facility] MRI BRAIN WO IVCONon 023 MRI BRAIN WO IVCON * * *Final Report* * * DATE OF EXAM: Jan 16 2023 1:40PM [facility] 0294 - MRI BRAIN WO IVCON / PROCEDURE REASON: multiple diagnoses * * * * Physician Interpretation * * * * EXAMINATION: MRI BRAIN WO IVCON CLINICAL HISTORY: Ataxia. Dizziness. TECHNIQUE: Routine noncontrast MRI protocol including diffusion images. MQ: [id number] COMPARISON: None. RESULT: Acute Change: There is no evidence of restricted diffusion to suggest an acute infarct. Hemorrhage: No evidence of prior parenchymal hemorrhage on the gradient echo images. Mass Lesion/ Mass Effect: No evidence of an intracranial mass or extra-axial fluid collection. No significant mass effect. Chronic Change: The white matter is within normal limits of signal intensity for age. Parenchyma: There is moderate generalized parenchymal volume loss. The brain parenchyma is otherwise within normal limits of signal intensity and morphology. Ventricles: Normal caliber and morphology. Skull Base: Hypothalamic and pituitary region are grossly normal. Craniocervical junction is normal. No significant marrow replacement process. Vasculature: Major intracranial arterial structures, and dural venous sinuses show typical flow void, suggesting patency by spin echo criteria. Other: The visualized paranasal sinuses and mastoid air cells are clear. Postop changes of bilateral cataract surgery. The orbits and extracranial soft tissues are unremarkable. IMPRESSION: Unremarkable MRI brain for age. No evidence of hydrocephalus or posterior fossa abnormality. No acute intracranial infarction. Laboratory Monitor: PSCB Transcribe Date/Time: Jan 16 2023 1:44P Dictated by : CRISTINA LUCERO MD This examination was interpreted and the report reviewed and electronically signed by: CRISTINA LUCERO MD on Jan 16 2023 1:45PM EST [id number] Normal [facility] US CAROTID ARTERIES [facility]SI [facility] LABon 01-02-2023 US CAROTID ARTERIES [facility] Non-Invasive Vascular Laboratory [facility] F30 Carotid Duplex Bilateral/Complete Date of service/time: 01/02/2023 11:16:13 AM Name: MRS. DORIE ROOT Date of : 1945 Age: 77 years Gender: F Clinical Indication Dizziness. TECHNIQUE -------- A carotid duplex ultrasound examination was performed, including grayscale imaging and color Doppler and spectral Doppler examination of the below mentioned arteries. FINDINGS -------- RIGHT SIDE Common carotid artery: Origin: PSV: 73 cm/s. EDV: 11 cm/s. Proximal: PSV: 106 cm/s. EDV: 21 cm/s. Mid: PSV: 102 cm/s. EDV: 18 cm/s. Distal: PSV: 90 cm/s. EDV: 17 cm/s. Mild heterogeneous plaque at distal. Internal carotid artery: Origin: PSV: 71 cm/s. EDV: 12 cm/s. Proximal: PSV: 63 cm/s. EDV: 17 cm/s. Mid: PSV: 70 cm/s. EDV: 18 cm/s. Distal: PSV: 73 cm/s. EDV: 14 cm/s. ICA/CCA Ratio: 0.8 External carotid artery: Proximal: PSV: 110 cm/s. EDV: 0 cm/s. Subclavian artery: Origin: PSV: 210 cm/s. EDV: 0 cm/s. Mild heterogeneous plaque at origin. Innominate artery: PSV: 100 cm/s. EDV: 0 cm/s. Vertebral artery: PSV: 55 cm/s. EDV: 8 cm/s. LEFT SIDE Common carotid artery: Proximal: PSV: 95 cm/s. EDV: 15 cm/s. Mid: PSV: 80 cm/s. EDV: 12 cm/s. Distal: PSV: 76 cm/s. EDV: 17 cm/s. Mild heterogeneous plaque at distal. Internal carotid artery: Origin: PSV: 67 cm/s. EDV: 17 cm/s. Proximal: PSV: 54 cm/s. EDV: 14 cm/s. Mid: PSV: 94 cm/s. EDV: 25 cm/s. Distal: PSV: 90 cm/s. EDV: 25 cm/s. ICA/CCA Ratio: 1.2 External carotid artery: Proximal: PSV: 84 cm/s. EDV: 11 cm/s. Subclavian artery: Proximal: PSV: 200 cm/s. EDV: 0 cm/s. Vertebral artery: PSV: 49 cm/s. EDV: 8 cm/s. IMPRESSION RIGHT SIDE Common carotid artery: Plaque visualized without evidence of hemodynamically significant stenosis. Internal carotid artery: 0-19% stenosis. Vertebral artery: Patent and antegrade flow noted. Subclavian artery: Plaque visualized without evidence of hemodynamically significant stenosis. LEFT SIDE Common carotid artery: Plaque visualized without evidence of hemodynamically significant stenosis. Internal carotid artery: 0-19% stenosis. Vertebral artery: Patent and antegrade flow noted. Technologist: Yu Alcantara T Ordering physician: ISAAC MATSON Interpreting physician: OLIVIA Malhotra DO Final CC [employer] Medical Image : [id number] Dynamics[employer] See Link below for Image Normal [facility] CNOVon 12-23-2022 CNOV Office Visit (NEURAV) DKDORIE ROLLE ([id number]) 1945 F Date Time Provider Department 12/23/22 1:00 PM ISAAC MATSON During your visit today, we recorded the following information about you: Pulse Blood pressure 78/minute 163/78 Isaac Matson MD 12/23/2022 1:40 PM Signed NEUROLOGY CONSULT NOTE PATIENT NAME: Dorie Root DATE: December 23, 2022 PRIMARY CARE PHYSICIAN: Juliano Sharma MD REASON FOR CONSULT: Dizziness REQUESTING PHYSICIAN: No ref. provider found My final recommendations will be communicated to the requesting health care provider by way of shared medical record for internal providers. ASSESSMENT: This is Dorie Root is a 77 year old female with a history of hypertension, asthma 1. Ataxia rule up to rule out or consider posterior circulation stroke 2. Vertigo/dizziness PLAN: MRI of the brain will be ordered, carotid duplex. Start nortriptyline for now 10 mg at bedtime. Any problems or concerns to call me or primary care physician immediately or go straight to the emergency department HISTORY OF PRESENT ILLNESS: Dorie Root is a 77 year old female, with a history of asthma and hypertension who presents with vertigo/ataxia. Patient was in her usual state of health May 2022 out of the blue she felt dizzy and vertiginous. She had this sensation of falling backwards when she stands up and gait unsteadiness. She had been seen by other doctors to, was tried on meclizine but to no avail. She also has had therapy but to no avail. Symptoms have not changed since May. They wanted to seek another opinion and that is the reason why they are here today. COMPLETE REVIEW OF SYSTEMS: GENERAL: No weight loss, malaise or fevers RESPIRATORY: Negative for cough, hemoptysis, wheezing, COPD, dyspnea or shortness of breath CARDIOVASCULAR: Negative for chest pain, leg swelling, hypertension, CHF or palpitations GI: No nausea, vomiting, or diarrhea See HPI. All other systems reviewed and are negative. No past medical history on file. No past surgical history on file. No family history on file. Social History Tobacco Use Smoking status: Never MEDICATIONS: Current Outpatient Medications Medication Sig Dispense Refill lisinopril (PRINIVIL) 10 mg tablet Take 10 mg by mouth once daily. budesonide-formotero l (SYMBICORT) 80-4.5 mcg/actuation inhaler Inhale 2 Puffs as instructed twice daily. FOSAMAX 70 MG TAB weekly 0 0 ESTRACE 1 MG TAB weekly 0 0 ALBUTEROL 90 MCG/ACTUATION AEROSOL INHALER as needed 0 0 nortriptyline (PAMELOR) 10 mg capsule Take 1 capsule by mouth daily at bedtime. 30 capsule 2 No current facility-administere d medications for this visit. Problem List There is no problem list on file for this patient. ALLERGIES: ALLERGIES No Known Allergies PHYSICAL EXAM: BP 163/78 Pulse 78 General appearance: well appearing, alert, and in no acute distress Skin: skin color, texture, turgor normal, no rashes or lesions Head: normal Ears: Not examined Carotid Auscultation: Without bruits Lungs: lungs clear to auscultation no wheezing or rhonchi CVS: Negative. RRR without murmur Neurological exam: Mental Status: Alert, oriented to person, place and time and Follows commands. Language: Comprehension intact? (simple commands - Yes, complex commands Yes), Fluency intact? Yes, repetition intact? Yes, reading intact? Yes, naming intact? Yes. Cranial Nerves: CNII: Visual acuity normal, Visual cao full to confrontation CNIII, IV, : Pupils equal, round and reactive to light, full extraoccular movements without nystagmus CN V: Facial sensation intact bilaterally to fine touch and pinprick, masseter 5/5 CN VII: Facial muscles symmetric and strong CN VIII: Hears finger rub well bilaterally CN IX: Deferred CN X: Palate elevates symmetrically CN XI: Full strength shoulder shrug bilaterally CN XII: Tongue protrusion full and midline Non-Dilated Fundiscopic Examination: Deferred Deferred Examination Motor Exam: Muscle bulk: Normal b/l Muscle Tone: Normal Muscle Power: Muscle Power: Moved all four extremities spontaneously with no focal motor weakness Reflexes: Symmetrically present Plantars: equivocal Sensation: Sensation is intact to light touch Coordination: Finger-to- nose-finger intact bilaterally. Gait: Steady, tendency to fall backwards while standing up straight also when she closes her eyes Return in about 3 months (around 03/24/2023). 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 Dizziness and giddiness - ICD9: 780.4, ICD10: R42 - US CAROTID ARTERIES [facility] 3. Vertigo - ICD9: 780.4, ICD10: R42 - MRI BRAIN WO IVCON Isaac Matson MD Patient evaluated on the date (more content not included)... Normal [facility] HISTORY PHYSICALon 3 HISTORY PHYSICAL HNO ID: [id number] Author: Isaac Matson MD Service: ? Author Type: Physician Type: HANDP Filed: 12/23/2022 1:40 PM Note Text: NEUROLOGY CONSULT NOTE PATIENT NAME: Dorie Root DATE: December 23, 2022 PRIMARY CARE PHYSICIAN: Juliano Sharma MD REASON FOR CONSULT: Dizziness REQUESTING PHYSICIAN: No ref. provider found My final recommendations will be communicated to the requesting health care provider by way of shared medical record for internal providers. ASSESSMENT: This is Dorie Root is a 77 year old female with a history of hypertension, asthma 1. Ataxia rule up to rule out or consider posterior circulation stroke 2. Vertigo/dizziness PLAN: MRI of the brain will be ordered, carotid duplex. Start nortriptyline for now 10 mg at bedtime. Any problems or concerns to call me or primary care physician immediately or go straight to the emergency department HISTORY OF PRESENT ILLNESS: Dorie Root is a 77 year old female, with a history of asthma and hypertension who presents with vertigo/ataxia. Patient was in her usual state of health May 2022 out of the blue she felt dizzy and vertiginous. She had this sensation of falling backwards when she stands up and gait unsteadiness. She had been seen by other doctors to, was tried on meclizine but to no avail. She also has had therapy but to no avail. Symptoms have not changed since May. They wanted to seek another opinion and that is the reason why they are here today. COMPLETE REVIEW OF SYSTEMS: GENERAL: No weight loss, malaise or fevers RESPIRATORY: Negative for cough, hemoptysis, wheezing, COPD, dyspnea or shortness of breath CARDIOVASCULAR: Negative for chest pain, leg swelling, hypertension, CHF or palpitations GI: No nausea, vomiting, or diarrhea See HPI. All other systems reviewed and are negative. No past medical history on file. No past surgical history on file. No family history on file. Social History Tobacco Use Smoking status: Never MEDICATIONS: Current Outpatient Medications Medication Sig Dispense Refill lisinopril (PRINIVIL) 10 mg tablet Take 10 mg by mouth once daily. budesonide-formotero l (SYMBICORT) 80-4.5 mcg/actuation inhaler Inhale 2 Puffs as instructed twice daily. FOSAMAX 70 MG TAB weekly 0 0 ESTRACE 1 MG TAB weekly 0 0 ALBUTEROL 90 MCG/ACTUATION AEROSOL INHALER as needed 0 0 nortriptyline (PAMELOR) 10 mg capsule Take 1 capsule by mouth daily at bedtime. 30 capsule 2 No current facility-administere d medications for this visit. Problem List There is no problem list on file for this patient. ALLERGIES: ALLERGIES No Known Allergies PHYSICAL EXAM: BP 163/78 Pulse 78 General appearance: well appearing, alert, and in no acute distress Skin: skin color, texture, turgor normal, no rashes or lesions Head: normal Ears: Not examined Carotid Auscultation: Without bruits Lungs: lungs clear to auscultation no wheezing or rhonchi CVS: Negative. RRR without murmur Neurological exam: Mental Status: Alert, oriented to person, place and time and Follows commands. Language: Comprehension intact? (simple commands - Yes, complex commands Yes), Fluency intact? Yes, repetition intact? Yes, reading intact? Yes, naming intact? Yes. Cranial Nerves: CNII: Visual acuity normal, Visual cao full to confrontation CNIII, IV, : Pupils equal, round and reactive to light, full extraoccular movements without nystagmus CN V: Facial sensation intact bilaterally to fine touch and pinprick, masseter 5/5 CN VII: Facial muscles symmetric and strong CN VIII: Hears finger rub well bilaterally CN IX: Deferred CN X: Palate elevates symmetrically CN XI: Full strength shoulder shrug bilaterally CN XII: Tongue protrusion full and midline Non-Dilated Fundiscopic Examination: Deferred Deferred Examination Motor Exam: Muscle bulk: Normal b/l Muscle Tone: Normal Muscle Power: Muscle Power: Moved all four extremities spontaneously with no focal motor weakness Reflexes: Symmetrically present Plantars: equivocal Sensation: Sensation is intact to light touch Coordination: Finger-to- nose-finger intact bilaterally. Gait: Steady, tendency to fall backwards while standing up straight also when she closes her eyes Return in about 3 months (around 03/24/2023). 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 Dizziness and giddiness - ICD9: 780.4, ICD10: R42 - US CAROTID ARTERIES [facility] 3. Vertigo - ICD9: 780.4, ICD10: R42 - MRI BRAIN WO IVCON Isaac Matson MD Patient evaluated on the date of the service which included preparing to see the patient, [id number] patient care, completing clinical documentation, obtaining and/or reviewing separately obtained history, performing a medically appropriate examination, couns (more content not included)... Normal [facility] Immunization Recordson 11-22 Immunization Records [id number] Normal [facility] Ambulatory Visit Summaryon 0 11-20-2022 Ambulatory Visit Summary DORIE ROOT :1945 Visit Date:11/20/2022 Ambulatory Visit Instructions Your Diagnosis BMI 22.0-22.9, adult Your Care Team Attending Physician - Roxane Barraza Primary Care Physician - EDITH DOS SANTOS, JULIANO Youngblood This Is Your Medications List albuterol (Albuterol (Eqv-ProAir HFA) 90 mcg/inh inhalation aerosol) budesonide-formotero l (Symbicort 80/4.5 inhalation aerosol with adapter) calcium-vitamin D (Caltrate 600 + D) cholestyramine (Prevalite 4 g/5.5 g oral powder for reconstitution) hydrochlorothiazide- lisinopril (hydrochlorothiazide -lisinopril 12.5 mg-10 mg Tab) methylcobalamin (Vitamin B12 Methylcobalamin 5000 mcg sublingual tablet) Procedures Performed Colonoscopy (10/01/2021), Dilatation and curettage: routine. Discharge Vitals Heart Rate (Peripheral) 65 Respiratory Rate 16 Blood Pressure 132/82 Height 155 cm Height 61 in Weight 53.5 kg Weight 117.7 lb BMI 22.27 Medications What How Much When Instructions Unchanged albuterol (Albuterol (Eqv-ProAir HFA) 90 mcg/ inh inhalation aerosol) 2 Puffs Inhalation Every 6 hours Unchanged budesonide-formotero l (Symbicort 80/ 4.5 inhalation aerosol with adapter) 2 Puffs Inhalation 2 times a day Unchanged calcium-vitamin D (Caltrate 600 + D) See instructions pt states taking 2 tabs per day Unchanged cholestyramine (Prevalite 4 g/ 5.5 g oral powder for reconstitution) 4 Gram By Mouth Every day Unchanged hydrochlorothiazide- lisinopril (hydrochlorothiazide -lisinopril 12.5 mg-10 mg Tab) 1 Tablets By Mouth Every day Unchanged methylcobalamin (Vitamin B12 Methylcobalamin 5000 mcg sublingual tablet) 1 Tablets Sublingual Every day Allergies No Known Allergies No Known Medication Allergies Normal Ayoub [facility] Office/Clini c Noteon 11-20-2022 Family Medicine Office/Clinic Note Chief Complaint raised dark area on back HPI Staff Pt here for skin lesion upper mid back. Onset- a couple months ago Denies pain. Pt here with Santosh. Needs Annual Medicare Wellness Visit- last visit a little over a year ago with insurance provided nurse. History of Present Illness pt presents today with raised dark area on upper mid back. it does not hurt or itch. no oozing Review of Systems PHQ Score Initial Depression Screen Score: 0 ROS - Provider Constitutional: no fever, no chills, no sweats, no fatigue Respiratory: no shortness of breath, no cough, no orthopnea, no wheezing. Cardiovascular: no chest pain, no palpitations, no edema. Neurologic: no headache, no dizziness, no numbness, no weakness. skin: dark raised area mid upper back Physical Exam Vitals & Measurements HR: 65(Peripheral) RR: 16 BP: 132/82 SpO2: 97% HT: 61 in HT: 155 cm WT: 53.5 kg WT: 117.7 lb BMI: 22.27 General: alert, no acute distress ENMT: oral mucosa moist, no pharyngeal erythema or exudate Cardiovascular: regular rate and rhythm, normal peripheral perfusion Respiratory: Lungs CTA, respirations non labored Extremities: no deformity, no trauma Neurological: oriented x 4, LOC appropriate for age, CN II-XII intact, motor strength equal & normal bilaterally, speech normal skin: clogged sebaceous gland mid upper back Assessment/Plan 1. Sebaceous cyst (L72.3: Sebaceous cyst) pt presents with to had an area looked at on her back. she has a .25 cm area on mid upper back. Dr. Sharma was called into room for another opinion and we feel it is a clogged sebaceous gland. pt and instructed to keep an eye on it. if it gets infected (red or warm to touch) they will notify office. all questions answered. pt and encouraged to have Prevnar 20 in the next week. they will go to [facility]. RTC as needed. Needs medicare wellness visit Ordered: Chronic Care Management ? Ambulatory Referral 2. BMI 22.0-22.9, adult (Z68.22: Body mass index [BMI] 22.0-22.9, adult) bmi education complete Ordered: Body Mass Index (BMI) documented 3008F Chronic Care Management ? Ambulatory Referral Current tobacco non-user 1036F Depression Screening Negative 3352F Influenza immunization status assessed 1030F Most recent diastolic blood pressure 80-89 mm Hg 3079F Patient screen for fall risk: no falls in last year or 1 fall with no injury in last year 1101F Pneumococcus immunization status assessed 1022F Systolic BP 130-139 mm Hg (Most Recent) 3075F Follow-up No qualifying data available Problem List/Past Medical History Ongoing No qualifying data Historical No qualifying data Procedure/Surgical History Colonoscopy (10/01/2021), Dilatation and curettage: routine. Medications Albuterol (Eqv-ProAir HFA) 90 mcg/inh inhalation aerosol, 2 puff(s), Inhalation, q6hr Caltrate 600 + D, See Instructions hydrochlorothiazide- lisinopril 12.5 mg-10 mg Tab, 1 tab(s), Oral, Daily Prevalite 4 g/5.5 g oral powder for reconstitution, 4 gm, Oral, Daily Symbicort 80/4.5 inhalation aerosol with adapter, 2 puff(s), Inhalation, BID Vitamin B12 Methylcobalamin 5000 mcg sublingual tablet, 5000 mcg= 1 tab(s), SubLingual, Daily Allergies No Known Allergies No Known Medication Allergies Social History Tobacco Never (less than 100 in lifetime) Tobacco Use:. Never Smokeless Tobacco Use:., 11/20/2022 Immunizations Vaccine Date Status Comments influenza virus vaccine, inactivated 06/21/2022 Recorded SARS-CoV-2 (COVID-19) mRNA BNT-162b2 vax 05/25/2021 Recorded 2022-11-20: TPV75 influenza virus vaccine, inactivated 05/18/2021 Recorded SARS-CoV-2 (COVID-19) mRNA BNT-162b2 vax 10/20/2020 Recorded 2022-11-20: TPV75 SARS-CoV-2 (COVID-19) mRNA BNT-162b2 vax 09/29/2020 Recorded 2022-11-20: TPV75 influenza virus vaccine, inactivated 06/06/2020 Recorded influenza virus vaccine, inactivated 05/26/2019 Recorded influenza virus vaccine, inactivated 2019 Recorded zoster vaccine, inactivated 05/14/2019 Recorded zoster vaccine, inactivated 03/18/2019 Recorded influenza virus vaccine, inactivated 06/02/2018 Recorded influenza virus vaccine, inactivated 06/12/2017 Recorded influenza virus vaccine, inactivated 06/10/2016 Recorded pneumococcal 13-valent vaccine 08/10/2015 Recorded zoster vaccine live 06/07/2015 Recorded influenza virus vaccine, inactivated 05/31/2015 Recorded Normal Ayoub [facility] Comment on above: Result Comment: Elec tronically Signed By: Roxane Barraza.br\Date and Time Signed: 11/20/22 16:14 EDT CNOVon 11-15-2022 CNOV Office Visit (CDIN) DORIE ROOT ([id number]) 1945 F Date Time Provider Department 11/15/22 12:30 PM LAUREN MCCAULEY [facility] During your visit today, we recorded the following information about you: Lauren Mccauley, PhD 11/21/2022 7:44 AM Signed [facility] [place] [facility] Vestibular Test Battery Report Name: Dorie Root CC#: [id number] Date of Service: 11/15/2022 Date of : 1945 Age: [age] year old Referred by: Hema Good MD And is a patient of Juliano Sharma MD Referred for: Evaluation of suspected change in hearing, tinnitus, or balance. Referral documented: In an order in Epic Pretest Instructions: All pretest instructions were completed prior to testing: no alcohol, no medication for dizziness/motion sickness, no sedatives (sleep aids, tranquilizers, antihistamines), no eye makeup and only have a light meal prior to testing. Impressions and Recommendations OVERALL IMPRESSIONS: Normal vestibular evaluation. Low likelihood of active peripheral vestibular system involvement to account for patient's daily symptoms of lightheadedness, dizziness and imbalance occurring daily in the morning only. However, we cannot rule out other contributors (head pain?) to symptoms or triggers for episodes of imbalance/dizziness. Dorie Root presents with dizziness and lightheadedness described as imbalance and inability to stand up or walk straight. Symptoms began the end May of 2022, with the most recently experienced symptoms occurring today. Symptoms are a little worse since onset. Symptoms last for hours in duration and occur every morning. Rarely she feels free from her symptoms in the afternoon or evenings. Symptoms are provoked by unknown. Associated symptoms include occasional sharp, brief lasting pain on the right side of her head around the latter day region that occurs very rarely, about once a month. Symptoms are alleviated by nothing, she just sits if she can. Dorie denies any auditory and visual complaints, other than occasional blurry vision. Dorie denies recent head or neck injury. Dorie denied a history of headaches or migraines. Dorie has not fallen in the past year, and is restricting activities due to symptoms. Dorie has participated in vestibular rehabilitation (4 visits) to help address current symptoms; however she denied any benefit. Other relevant medical history includes concern for Chiari malformation. Experiences head pain when she performs the valsalva maneuver around the occipital region of the scalp. Symptom Ratin-9/10 today (0 = no symptoms, 10 = severe symptoms). Today's evaluation revealed the following: There were no indications of peripheral vestibular system pathway involvement noted. Normal investigation of superior and inferior vestibular nerve function via examination of the semicircular canals. Normal mid and high frequency vestibulo-ocular reflex (VOR) function as evident by rotary chair gain and vHIT semicircular canal gain (no saccades). There were no clinically significant signs of pathophysiologic nystagmus provoked during gaze stability testing with fixation removed, post-headshake testing, positional testing, mastoid vibration testing, and neck torsion. Some non-clinically significant intermittent nystagmus was observed during neck torsion left, and mastoid vibration left and right. Low likelihood of active peripheral vestibular system involvement There were no subjective or objective indications of Benign Paroxysmal Positional Vertigo (BPPV); however, slight right beating nystagmus was noted in the right ear down position, slight left beating nystagmus was noted in the left ear down position, and slight right beating nystagmus was noted in the head center supine position. Note, none of the values were considered to be clinically significant, and the patient did not note any symptoms. There were no indications of central vestibulo-ocular pathway involvement noted. Normal oculomotor examination. Normal observation of gait and transfers. Postural control findings demonstrate a severe sensory system dysfunction indicating difficulty in using sensory cues (vestibular, visual and/or somatosensory) during the Modified Clinical Test of Sensory Integration on Balance (mCTSIB). Abnormal increased body sway observed during eyes open on firm support surfaces. RECOMMENDATIONS: * Continue medical follow-up with Juliano Sharma MD * Consider re-evaluation as medically indicated. * Consider maintaining a healthy sleep schedule in addition to diet, hydration, and exercise. * Consider referral to balance rehabilitation therapy to address persistent symptoms and to increase balance confidence. Treatment focus may consider elements of traditional therapy techniques: 1) gaze stabilization exercises, 2) (more content not included)... Normal [facility] Historical Records Officeon 11-05-2022 Historical Records Office [id number] #[id number]:127 Normal [facility] Patient Correspondenceon Patient Correspondence [id number] #[id number]:127 Normal [facility] Nurse Consultation Noteon Nurse Consultation Note Reason for Visit Patient here for blood pressure check Physical Exam Vitals & Measurements BP: 150/66 Medications No active medications Allergies No active allergies Normal [facility] FREE T3on 10-29-2022 FREE T3 2.71 pg/mlL Normal 2.18-3.[address] [facility] Comment on above: Performed By: #### F T3, TSH #### [facility] [address] [place] [address] Dr. Mina Perkins FREE T4on 10-29-2022 Free T4 [Mass/Vol] 1.10 ng/dL Normal 0.76-1.[address] [facility] Comment on above: Performed By: #### F T4 #### [facility] [address] [place] [address] Dr. Mina Perkins TSHon 10-29-2022 TSH 2.219 uIU/mL Normal 0.358-3.[address] [facility] Comment on above: Performed By: #### F T3, TSH #### [facility] [address] [place] [address] Dr. Mina Perkins CBC AUTO DIFFon 05-29-2022 BASO # 0.1 103/ul Normal 0.0-0.[address] [facility] Comment on above: Performed By: #### C BC #### [facility] [address] [place] [address] Dr. Mian Perkins Basophils/100 WBC (Bld) 0.7 % Normal 0.2-2.[address] [facility] Comment on above: Performed By: #### C BC #### [facility] [address] [place] [address] Dr. Mina Perkins EO # 0.1 103/ul Normal 0.0-0.[address] [facility] Comment on above: Performed By: #### C BC #### [facility] [address] [place] [address] Dr. Mina Perkins Eosinophils/100 WBC (Bld) 1.7 % Normal 0.9-7.[address] [facility] Comment on above: Performed By: #### C BC #### [facility] [address] [place] [address] Dr. Mina Perkins Erythrocyte distribution width (RBC) [Ratio] 12.1 % Normal 11.0-15.[address] [facility] Comment on above: Performed By: #### C BC #### [facility] [address] [place] [address] Dr. Mina Perkins Hematocrit (Bld) [Volume fraction] 40.8 % Normal 36.0-48.[address] [facility] Comment on above: Performed By: #### C BC #### [facility] [address] [place] [address] Dr. Mina Perkins Hemoglobin (Bld) [Mass/Vol] 14.2 g/dL Normal 12.0-16.[address] [facility] Comment on above: Performed By: #### C BC #### [facility] [address] [place] [address] Dr. Mina Perkins IG # 0.01 10e3/ul Normal 0.00-0.[address] [facility] Comment on above: Performed By: #### C BC #### [facility] [address] [place] [address] Dr. Mina Perkins IG % 0.1 % Normal 0.0-0.[address] [facility] Comment on above: Performed By: #### C BC #### [facility] [address] [place] [address] Dr. Mina Perkins LYMPH # 1.5 103/ul Normal 1.2-3.[address] [facility] Comment on above: Performed By: #### C BC #### [facility] [address] [place] [address] Dr. Mina Perkins Lymphocytes/100 WBC (Bld) 20.1 % Critically low 20.5-60.[address] [facility] Comment on above: Performed By: #### C BC #### [facility] [address] [place] [address] Dr. Mina Perkins MANUAL DIFF REQ NO Normal [facility] Comment on above: Performed By: #### C BC #### [facility] [address] [place] [address] Dr. Mina Perkins MCH (RBC) [Entitic mass] 30.5 pg Normal 26.7-34.[address] [facility] Comment on above: Performed By: #### C BC #### [facility] [address] [place] [address] Dr. Mina Perkins MCHC (RBC) [Mass/Vol] 34.8 g/dL Normal 29.9-35.2 [facility] Comment on above: Performed By: #### C BC #### [facility] [address] [place] [address] Dr. Mina Perkins MCV (RBC) [Entitic vol] 87.7 fL Normal 81.0-99.[address] [facility] Comment on above: Performed By: #### C BC #### [facility] [address] [address] [address] Mina Perkins MONO # 0.6 103/ul Normal 0.3-0.8 [facility] Comment on above: Performed By: #### C BC #### [facility] [address] [place] [address] Dr. Mina Perkins Monocytes/100 WBC (Bld) 8.1 % Normal 1.7-12.[address] [facility] Comment on above: Performed By: #### C BC #### [facility] [address] [place] [address] Dr. Mina Perkins NEUT # 5.2 103/ul Normal 1.4-6.[address] [facility] Comment on above: Performed By: #### C BC #### [facility] [address] [place] [address] Dr. Mina Perkins Neutrophils/100 WBC (Bld) 69.3 % Normal 43.0-75.[address] [facility] Comment on above: Performed By: #### C BC #### [facility] [address] [place] [address] Dr. Mina Perkins Platelet mean volume (Bld) [Entitic vol] 9.3 fL Critically low 9.5-13.[address] [facility] Comment on above: Performed By: #### C BC #### [facility] [address] [place] [address] Dr. Mina Perkins PLT 311 103/ul Normal 150-450 [facility] Comment on above: Performed By: #### C BC #### [facility] [address] [place] [address] Dr. Mina Perkins RBC 4.65 106/ul Normal 4.20-5.40 [facility] Comment on above: Performed By: #### C BC #### [facility] [address] [place] [address] Dr. Mina Perkins WBC 7.5 103/ul Normal 4.0-11.0 [facility] Comment on above: Performed By: #### C BC #### [facility] [address] [address] [address] Mina Perkins LIPID PROFILEon 05-29-2022 CHOL-HDL RATIO NORM SEE BELOW Normal [facility] Comment on above: Result Comment: 3.3 - 4.4 LOW RISK 4.4 - 7.1 AVERAGE RISK 7.1 - 11.0 MODERATE RISK >11.0 HIGH RISK Performed By: #### L IPID, CMP #### [facility] [address] [address] [address] Mina Perkins Cholesterol [Mass/Vol] 196 mg/dL Normal <=[address] [facility] Comment on above: Performed By: #### L IPID, CMP #### [facility] [address] [place] [address] Dr. Mina Perkins Cholesterol in HDL [Mass/Vol] 82 mg/dL Critically high 40-[address] [facility] Comment on above: Performed By: #### L IPID, CMP #### [facility] [address] [place] [address] Dr. Mina Perkins Cholesterol in LDL [Mass/Vol] 99.0 mg/dL Normal [facility] Comment on above: Performed By: #### L IPID, CMP #### [facility] [address] [address] [address] Mina Perkins Cholesterol.total/Ch olesterol in HDL [Mass ratio] 2.4 {ratio} Normal [facility] Comment on above: Performed By: #### L IPID, CMP #### [facility] [address] [place] [address] Dr. Mina Perkins HDL NORMAL > or = 60 mg/dl - LOW CARDIOVASCULAR RISK <40 mg/dl - HIGH CARDIOVASCULAR RISK Normal [facility] Comment on above: Performed By: #### L IPID, CMP #### [facility] [address] [place] [address] Dr. Mina Perkins LDL CALC NORMAL SEE BELOW Normal [facility] Comment on above: Result Comment: <100 mg/dl OPTIMAL 100 - 129 mg/dl NEAR OR ABOVE OPTIMAL 130 - 159 mg/dl BORDERLINE HIGH 160 - 189 mg/dl HIGH >190 mg/dl VERY HIGH Performed By: #### L IPID, CMP #### [facility] [address] [address] [address] Mina Perkins Triglyceride [Mass/Vol] 75 mg/dL Normal <=150 [facility] Comment on above: Performed By: #### L IPID, CMP #### [facility] [address] [address] [address] Mina Perkins VLDL CALC 15.0 mg/dL Normal [facility] Comment on above: Performed By: #### L IPID, CMP #### [facility] [address] [address] [address] Mina Perkins PROF 14(COMP METB)on 022 Albumin [Mass/Vol] 4.1 g/dL Normal 3.4-5.[address] [facility] Comment on above: Performed By: #### L IPID, CMP #### [facility] [address] [place] [address] Dr. Mina Perkins Albumin/Globulin [Mass ratio] 1.2 {ratio} Normal [facility] Comment on above: Performed By: #### L IPID, CMP #### [facility] [address] [place] [address] Dr. Mina Perkins ALP [Catalytic activity/Vol] 77 U/L Normal 46-[address] [facility] Comment on above: Performed By: #### L IPID, CMP #### [facility] [address] [place] [address] Dr. Mina Perkins ALT [Catalytic activity/Vol] 36 U/L Normal 14-59 [facility] Comment on above: Performed By: #### L IPID, CMP #### [facility] [address] [place] [address] Dr. Mina Perkins Anion gap [Moles/Vol] 15.3 mmol/L Normal [facility] Comment on above: Performed By: #### L IPID, CMP #### [facility] [address] [place] [address] Dr. Mina Perkins AST [Catalytic activity/Vol] 31 U/L Normal 15-37 [facility] Comment on above: Performed By: #### L IPID, CMP #### [facility] [address] [address] [address] Mina Perkins Bilirubin [Mass/Vol] 0.9 mg/dL Normal 0.2-1.[address] [facility] Comment on above: Performed By: #### L IPID, CMP #### [facility] [address] [place] [address] Dr. Mina Perkins Calcium [Mass/Vol] 9.5 mg/dL Normal 8.5-10.1 [facility] Comment on above: Performed By: #### L IPID, CMP #### [facility] [address] [place] [address] Dr. Mina Perkins Chloride [Moles/Vol] 97 mmol/L Critically low 98-[address] [facility] Comment on above: Performed By: #### L IPID, CMP #### [facility] [address] [place] [address] Dr. Mina Perkins CO2 [Moles/Vol] 25.6 mmol/L Normal 21.0-32.[address] [facility] Comment on above: Performed By: #### L IPID, CMP #### [facility] [address] [place] [address] Dr. Mina Perkins Creatinine [Mass/Vol] 0.81 mg/dL Normal 0.55-1.[address] [facility] Comment on above: Performed By: #### L IPID, CMP #### [facility] [address] [place] [address] Dr. Mina Perkins EGFR-AF TURKS AND CAICOS ISLANDER >60 Normal >=60 [facility] Comment on above: Performed By: #### L IPID, CMP #### [facility] [address] [place] [address] Dr. Mina Perkins EGFR-NON AF TURKS AND CAICOS ISLANDER >60 Normal >=[address] [facility] Comment on above: Performed By: #### L IPID, CMP #### [facility] [address] [place] [address] Dr. Mina Perkins Globulin (S) [Mass/Vol] 3.4 g/dL Normal [facility] Comment on above: Performed By: #### L IPID, CMP #### [facility] [address] [address] [address] Mina Perkins Glucose [Mass/Vol] 89 mg/dL Normal 74-[address] [facility] Comment on above: Performed By: #### L IPID, CMP #### [facility] [address] [address] [address] Mina Perkins Potassium [Moles/Vol] 3.9 mmol/L Normal 3.5-5.[address] [facility] Comment on above: Performed By: #### L IPID, CMP #### [facility] [address] [address] [address] Mina Perkins Protein [Mass/Vol] 7.5 g/dL Normal 6.4-8.[address] [facility] Comment on above: Performed By: #### L IPID, CMP #### [facility] [address] [address] [address] Mina Perkins Sodium [Moles/Vol] 134 mmol/L Critically low 136-145 [facility] Comment on above: Performed By: #### L IPID, CMP #### [facility] [address] [address] [address] Mina Perkins Urea nitrogen [Mass/Vol] 14.0 mg/dL Normal 7.0-18.[address] [facility] Comment on above: Performed By: #### L IPID, CMP #### [facility] [address] [place] [address] Dr. Mina Perkins Urea nitrogen/Creatinine [Mass ratio] 17.3 mg/mg Normal [facility] Comment on above: Performed By: #### L IPID, CMP #### [facility] [address] [place] [address] Dr. Mina Perkins MG MAMM SCREEN 3D ELSI CADon 03-14-2022 MG MAMM SCREEN 3D ELSI CAD Patient: DORIE ROOT Exam Date: 03/14/2022 : 1945 Gender:F Ordering : DR KAIT BOYCE Admission #: [id number] Family : DR JULIANO SHARMA . Order #: [id number] CLICK HERE TO VIEW EXAM RADIOLOGY REPORT PROCEDURE: MAMMOGRAM SCREENING 3D BILATERAL CAD COMPARISON: MG MAMM SCREEN 3D ELSI CAD, 03/09/2021. MG MAMM SCREEN ELSI W CAD, 03/06/2020. INDICATIONS: Screening for malignant neoplasm of breast Calculator Name NCI Breast Cancer Risk Assessment Tool 5 Year Breast Cancer Risk 3.00% Lifetime Breast Cancer Risk 5.30% Personal Breast Cancer No Personal Ovarian Cancer No Treatments None Family Cancers Sister with breast cancer at age 55. LOCATION: [facility] BREAST COMPOSITION: Heterogeneously dense,which may obscure small masses. FINDINGS: DIAGNOSTIC CATEGORY 1--NEGATIVE. NO CHANGE FROM COMPARISON ASSESSMENT. Scattered benign-appearing calcifications are present. Scattered benign-appearing lymph nodes are present. RIGHT BREAST: No significant suspicious finding. LEFT BREAST: No significant suspicious finding. RECOMMENDATIONS: ROUTINE MAMMOGRAM AND CLINICAL EVALUATION IN 12 MONTHS. PLEASE NOTE: A NORMAL MAMMOGRAM DOES NOT EXCLUDE THE POSSIBILITY OF BREAST CANCER. A CLINICALLY SUSPICIOUS PALPABLE LUMP SHOULD BE BIOPSIED. Dictated by: An Kasper MD on 03/14/2022 at 13:39 Approved by: An Kasper MD on 03/14/2022 at 13:40 Normal [facility] 09-07-2021 L Specimen: [id number] Received: 09/07/21 Status: MITZY Ramos Num: [id number] Spec Type: Surgical Subm Dr: An Yanez Jr, DO Tissues: A Colon Biopsy (RANDOM COLON) Procedures: HE Stain/2, Gross/Micro L4 Patient Age/Sex Location Account Attending Physician Dorie Root 76/F [id number] An Yanez Jr, DO SPEC NUM: [id number] RECD: 09/07/21 STATUS: MITZY MANDELYasmin NUM: [id number] JESICA: 09/07/[address] [facility] [address]: An Yanez Jr, DO ENTERED: 09/07/[address] [facility] [address]: SUZI TYPE: Surgical DEPT: S ORDERED: HE Stain/2, Gross/Micro L4 ORDERED: HE Stain/2, Gross/Micro L4 Pathological Diagnosis Random colon, biopsy: - Colonic mucosa with lymphoid aggregate, no other significant pathologic findings. Clinical Information Diarrhea Gross Description Received in formalin labeled with the patient's name, number and random colon is a 0.5 cm espinal tissue fragment. Entirely submitted in one cassette labeled A1. Type of Fixative: 10% Neutral Buffered Formalin (SM/RASMUSSEN) Microscopic Description Two glass slides with H E stained material have been examined. The microscopic findings support the above pathologic diagnosis. CPT Codes 55722 Specimen: [id number] Received: 09/07/21 Status: MITZY Ramos Num: [id number] Spec Type: Surgical Subm Dr: An Yanez Jr, DO Tissues: A Colon Biopsy (RANDOM COLON) Procedures: HE Stain/2, Gross/Micro L4 Patient: DkJeronimo rollekayleigh Connell [id number] (Continued) Signed (signature on file) Afua Nash MD 09/10/21 [id number] [facility] COVID-19 Antigenon 2 COVID-19 Antigen Healthcare Worker?: N Zena Reference Zena Reference Negative SARS-CoV+SARS-CoV-2 (COVID-19) Ag [Presence] in Respiratory specimen by Rapid immunoassay Negative for SARS Antigen by RANJAN COVID19 Blank Space Zena Disclaimer Negative results, from patients with symptom Zena Disclaimer onset beyond five days, should be treated as Zena Disclaimer presumptive and confirmation with a molecular Zena Disclaimer assay, if necessary, for patient management, Zena Disclaimer may be performed. Negative results do not rule Zena Disclaimer out COVID-19 and should not be used as the sole Zena Disclaimer basis for treatment or patient management Zena Disclaimer decisions, including infection control decisions. Zena Disclaimer Negative results should be considered in the Zena Disclaimer context of a patient's recent exposures, history Zena Disclaimer and the presence of clinical signs and symptoms Zena Disclaimer consistent with COVID-19. COVID19 Blank Space Zena Disclaimer The Zena SARS Antigen RANJAN does not differentiate Zena Disclaimer between SARS-CoV and SARS-CoV-2. COVID19 Blank Space Zena Disclaimer This test was developed and its performance Zena Disclaimer characteristic determined by [employer] and Zena Disclaimer validated at [facility]. This Zena Disclaimer test has not been FDA cleared or approved. This Zena Disclaimer test has been authorized by FDA under an Emergency Use Zena Disclaimer Authorization (EUA). This test has been validated Zena Disclaimer in accordance with the FDA's Guidance Document (Policy Zena Disclaimer for Diagnostics Testing in Laboratories Certified to Zena Disclaimer Perform High Complexity Testing under CLIA prior to Zena Disclaimer Emergency Use Authorization for Coronavirus Zena Disclaimer isease during the Public Health Emergency) Zena Disclaimer issued on December 02, 2019. This test is only authorized Zena Disclaimer for the duration of time the declaration that Zena Disclaimer circumstances exist justifying the authorization of Zena Disclaimer the emergency use of in vitro diagnostic tests for Zena Disclaimer detection of SARS-CoV-2 virus and/or diagnosis of Zena Disclaimer COVID-19 infection under section 564(b)(1) of the Zena Disclaimer Act, 21 U.S.C. 360bbb-3(b)(1), unless the Zena Disclaimer authorization is terminated or revoked sooner. PERFORMED BY: [place] [address] PATHOLOGIST WAITRESS ESTEBAN REAGAN M.D. Normal [facility] Comment on above: Performed By: #### S OFIANEG, COVID-19 ZENA #### [address] Zena Ag Negativeon 09-05-19 22 Zena Ag Negative Negative Normal Negative [facility] Comment on above: Result Comment: This is a duplicate Zena SARS Antigen (RANJAN) result to be used for statistical tracking purpose only. PERFORMED BY: [place] [address] PATHOLOGIST WAITRESS ESTEBAN REAGAN M.D. Performed By: #### S OFIANEG, COVID-19 ZENA #### [facility] [address] [place] [address] Vital Signs Date Time Vital Sign Value Performing Clinician Faci lity 06-12-2023 14:51-0400 Diastolic blood pressure 69 mm[Hg] Isaac Matson MD Work Phone: [facility] 06-12-2023 14:51-0400 Heart rate 78 /min Isaac Matson MD Work Phone: [facility] 06-12-2023 14:51-0400 Systolic blood pressure 154 mm[Hg] Isaac Matson MD Work Phone: [facility] 04-28-2023 14:38-0400 Body height 157.5 cm Yair Chaney MD Work Phone: [facility] 04-28-2023 14:38-0400 Body weight 50.35 kg Yair Chaney MD Work Phone: [facility] 04-28-2023 14:38-0400 Diastolic blood pressure 72 mm[Hg] Yair Chaney MD Work Phone: [facility] 04-28-2023 14:38-0400 Heart rate 60 /min Yair Chaney MD Work Phone: [facility] 04-28-2023 14:38-0400 SaO2% (BldA) [Mass fraction] 99 % Yair Chaney MD Work Phone: [facility] 04-28-2023 14:38-0400 Systolic blood pressure 148 mm[Hg] Yair Chaney MD Work Phone: [facility] 12-23-2022 12:58-0400 Diastolic blood pressure 78 mm[Hg] Isaac Matson MD Work Phone: [facility] 12-23-2022 12:58-0400 Heart rate 78 /min Isaac Matson MD Work Phone: [facility] 12-23-2022 12:58-0400 Systolic blood pressure 163 mm[Hg] Isaac Matson MD Work Phone: [facility] Encounters Encounter Date Encounter Type Care Provider Facility Start: 07-23-2024 ambulatory Srinivasan Lezama Facility :[facility] Start: 10-08-2023 ambulatory Shen Talal Sarmini Facility:[facility] Start: 09-15-2023 ambulatory Srinivasan Lezama Facility :[facility] [place] Start: 08-12-2023 ambulatory Roxane Arron Facility:[facility] Start: 08-11-2023 End: 08-12-2023 ambulatory Srinivasan Lezama Facility:[facility]okul Start: 07-31-2023 End: 08-01-2023 ambulatory Roxane L Arron Facility:[facility] [place] [facility] Start: 07-29-2023 End: 07-30-2023 ambulatory Srinivasan Lezama Facility:[facility] Start: 07-29-2023 End: 07-29-2023 Lab Drop off Srinivasan Lezama [facility] Start: 07-23-2023 End: 07-24-2023 ambulatory Roxane L Arron Facility:[facility] Start: 07-23-2023 End: 07-23-2023 Lab Drop off Roxane L Arron [facility] Start: 07-11-2023 End: 07-12-2023 ambulatory YAIR R WATTAR Facility:[facility] Start: 06-17-2023 End: 06-17-2023 ambulatory YAIR R GREGORYTAR Facility:[facility] Start: 06-12-2023 End: 06-12-2023 ambulatory ISAAC MATSON Facility:[facility] Start: 06-12-2023 End: 06-12-2023 Patient encounter procedure Isaac Matson MD Work Phone: Neurology Comment on above: Dizziness and giddin ess (Primary Dx); Vertigo Start: 06-11-2023 End: 06-11-2023 ambulatory YAIR R WATTAR Facility:[facility] Start: 06-11-2023 End: 06-11-2023 ambulatory YAIR R WATTAR Facility:[facility] Start: 05-13-2023 End: 05-14-2023 ambulatory Srinivasna Lezama Facility:[facility] Tierney hodgson Start: 05-12-2023 Telephone encounter Rahcael figueroa MD Work Phone: Internal Medicine Comment on above: Request Outside [facility] Start: 04-30-2023 End: 05-01-2023 ambulatory Srinivasan Lezama Facility:[facility] hodg[facility] Start: 04-28-2023 End: 04-28-2023 ambulatory YAIR R WATTAR Facility:[facility] Start: 04-28-2023 End: 04-28-2023 Patient encounter procedure Yair R Wattar MD Work Phone: Cardiology Comment on above: Chest pain, unspecif ied type (Primary Dx); SOB (shortness of breath) Start: 04-02-2023 End: 04-03-2023 ambulatory Srinivasan Lezama Facility: [facility] Start: 03-25-2023 End: 03-26-2023 ambulatory Srinivasan Lezama Facility:[facility] [place] [facility] Start: 03-24-2023 End: 03-24-2023 ambulatory ISAAC T SESE Facility:[facility] Start: 02-17-2023 End: 02-18-2023 ambulatory Roxane Heller Facility:[facility] hodgson Start: 01-29-[address] JULIANO SHARMA . Facil ity:[facility] Start: 01-21-2023 End: 01-22-[address] JULIANO SHARMA . 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] Start: 01-02-2023 End: 01-02-2023 ambulatory ISAAC T HUYEN Facility:[facility] Start: 12-23-2022 End: 12-23-2022 ambulatory ISAAC T SESE Facility:[facility] Start: 12-23-2022 End: 12-23-2022 Patient encounter procedure Isaac Matson MD Work Phone: Neurology Comment on above: Ataxia following cer ebral infarction (Primary Dx); Dizziness and giddiness; Vertigo Start: 11-20-2022 End: 11-21-2022 Orders Only Hema Good MD Work Phone: [facility] Comment on above: Dizziness (Primary D x) Start: 11-15-2022 End: 11-16-2022 ambulatory LAUREN MCCAULEY Facility:[facility] Start: 11-15-2022 End: 11-15-2022 Patient encounter procedure Lauren Mccauley PhD Work Phone: Audiology Comment on above: Dizziness (Primary D x); Head pains Start: 11-04-2022 End: 11-05-2022 ambulatory JULIANO SHARMA Facility:[facility] hodg[facility] Start: 10-29-2022 End: 10-30-[address] JULIANO SHARMA . Facility: Start: 07-02-2022 End: 07-31-[address] JULIANO SHARMA . Facility:[facility] Start: 06-11-2022 End: 06-12-[address] JULIANO SHARMA . Facility:[facility] Start: 05-29-2022 End: 05-30-[address] JULIANO SHARMA . Facility:[facility] Start: 05-07-2022 End: 05-07-2022 ambulatory MANA JONES . Facility:[facility] Start: 03-14-2022 End: 03-15-[address] DOCTOR BLAKE Facility: Procedures Date Procedure Procedure Detail Performing Clinician Start: 04-28-2023 Ecg routine ecg w/le ast 12 lds i&r only [facility] Provider Start: 01-16-2023 Mri brain brain stem w/o contrast material Isaac Matson MD Work Phone: Start: 10-01-2021 Colonoscopy Roxane lua Comment on above: [facility] Dilatation and curet tage: routine Roxane Heller Comment on above: pt states this was y ears ago Plan of Treatment Date Care Activity Detail Author Start: 05-07-2032 Urine microalbumin profile DTa P,Tdap,Td Vaccine (2 - Tdap) [facility] Start: 05-02-2023 Covid-19 Vaccine ( season) Covid-19 Vaccine ( season) [facility] Start: 05-02-2023 Influenza vaccination [facility] Start: 04-28-2023 End: 06-28-2023 Lipid 1996 panel - Serum or Plasma LIPID PANEL BASIC Lab Routine Chest pain, unspecified type Expected: 04/28/2023, Expires: 06/28/2023 [facility] Work Phone: Comment on above: Expected: 04/28/2023 , Expires: 06/28/2023 Start: 09-01-2022 ADVANCE DIRECTIVE DISCUSSION ADVANCE DIRECTIVE DISCUSSION [facility] Start: 09-01-2022 DEPRESSION ASSESSMENT DEPRESSION ASS ESSMENT [facility] Start: 07-20-2021 COVID-19 VACCINE (4 - Booster for Pfizer series) COVID-19 VACCINE (4 - Booster for Pfizer series) [facility] Start: 07-20-2021 COVID-19 VACCINE (4 - Pfizer series) COVID-19 VACCINE (4 - Pfizer series) [facility] Start: 2008 BONE DENSITY BONE DENSITY [facility] Start: 2008 Bone Density Screening Bone Density Screening [facility] Start: 2008 Pneumococcal Vaccine : 65+ (1 - PCV) Pneumococcal Vaccine: 65+ (1 - PCV) [facility] Start: 2008 PNEUMOCOCCAL: 65+ (1 - PCV) PNEUMOCOCCAL: 65+ (1 - PCV) [facility] Start: 2003 RSV Vaccine (1 - 1-d ose 60+ series) RSV Vaccine (1 - 1-dose 60+ series) [facility] Start: 1993 SHINGRIX VACCINE (1 of 2) LIGHT GRIX VACCINE (1 of 2) [facility] Start: 1988 DIABETES SCREEN DIABETES SCREEN [facility] Start: 1988 Diabetes Screening Diabetes Screenin g [facility] Start: 1962 Urine microalbumin profile [facility] End: 04-28-2024 ECG COMPLETE ECG COMPLETE ECG Routine Chest pain, unspecified type 1 Occurrences starting 04/28/2023 until 04/28/2024 [facility] Work Phone: Comment on above: 1 Occurrences starti ng 04/28/2023 until 04/28/2024 ECG COMPLETE ECG COMPLETE ECG 04/28/2023 2:42 PM EDT [facility] End: 04-28-2024 Echocardiography ECHO Cardiology Routine Chest pain, unspecified type 1 Occurrences starting 04/28/2023 until 04/28/2024 [facility] Work Phone: Comment on above: 1 Occurrences starti ng 04/28/2023 until 04/28/2024 Mri brain brain stem w/o contrast material MRI BRAIN WO IVCON Radiology Routine Ataxia following cerebral infarction Vertigo Ordered: 12/23/2022 [facility] Work Phone: Comment on above: Ordered: 12/23/2022 End: 05-27-2024 NM CARDIAC PERF STRESS/PHARM NM CARDIAC PERF STRESS/PHARM Radiology Routine Chest pain, unspecified type 1 Occurrences starting 04/28/2023 until 05/27/2024 [facility] Work Phone: Comment on above: 1 Occurrences starti ng 04/28/2023 until 05/27/2024 End: 12-24-2023 US CAROTID ARTERIES [facility] US CAROTID ARTERIES [facility] Vascular Lab Routine Ataxia following cerebral infarction Dizziness and giddiness 1 Occurrences starting 12/23/2022 until 12/24/2023 [facility] Work Phone: Comment on above: 1 Occurrences starti ng 12/23/2022 until 12/24/2023 [facility] Immunizations Immunization Date Immunization Notes Care Provider Sandra [facility] 11-20-2022 pneumococcal 20-janette nt conjugate vaccine Roxane Arron [facility] 06-21-2022 influenza virus vaccine, unspecified formulation Yair Chaney MD Work Phone: [facility] 05-25-2021 SARS-CoV-2 (COVID-19 ) mRNA BNT-162b2 vax Roxane Arron [facility] Comment on above: Result Comment: 2022: [id number] 05-18-2021 influenza virus vaccine, unspecified formulation Roxane Arron [facility] 10-20-2020 SARS-CoV-2 (COVID-19 ) mRNA BNT-162b2 vax Roxane Arron [facility] Comment on above: Result Comment: 2022: [id number] 09-29-2020 SARS-CoV-2 (COVID-19 ) mRNA BNT-162b2 vax Roxane Arron [facility] Comment on above: Result Comment: 2022: [id number] 06-06-2020 influenza virus vaccine, unspecified formulation Roxane Arron [facility] 05-26-2019 influenza virus vaccine, unspecified formulation Roxane Arron [facility] 2019 influenza virus vaccine, unspecified formulation Roxane Arron [facility] 05-14-2019 zoster vaccine recombinant Roxane Arron [facility] 03-18-2019 zoster vaccine recombinant Roxane Arron [facility] 06-02-2018 influenza virus vaccine, unspecified formulation Roxane Arron [facility] 06-12-2017 influenza virus vaccine, unspecified formulation Roxane Arron [facility] 06-10-2016 influenza virus vaccine, unspecified formulation Roxane Arron [facility] 08-10-2015 pneumococcal conjuga te vaccine, 13 valent Roxane Arron [facility] 06-07-2015 zoster vaccine, live Roxane Sc hwab [facility] 05-31-2015 influenza virus vaccine, unspecified formulation Roxane Arron [facility] Payers Date Payer Category Payer Private Health Insurance [id number] 2021 Medicare AETNA MEDICARE A ETNA MEDICARE PPO [id number] 2021-Present [phone] [address] [place] [address] PPO [id number] 1959 Medicare [id number] 1959 Unknown [id number] 1943 Unknown [id number] 2.16.840.1.133091.3.579.2.5 1943 Unknown [id number] 2.16.840.1.120787.3.579.2.5 93 1943 Unknown [id number] 2.16.840.1.514576.3.579.2.5 1943 Unknown [id number] 2.16.840.1.728959.3.579.2.5 1943 Unknown [id number] 2.16.840.1.557721.3.579.2.5 93 1943 Unknown [id number] 2.16.840.1.087608.3.579.2.5 93 1943 Unknown [id number] 2.16.840.1.044884.3.579.2.5 1943 Unknown [id number] 2.16.840.1.732987.3.579.2.5 93 1943 Unknown [id number] 2.16.840.1.710628.3.579.2.7 1943 Unknown [id number] 2.16.840.1.606216.3.579.2.7 1943 Unknown [id number] 2.16.840.1.114155.3.579.2.7 1943 Unknown [id number] 2.16.840.1.628661.3.579.2.7 1943 Unknown [id number] 2.16.840.1.788287.3.579.2.7 1943 Unknown [id number] 2.16.840.1.733490.3.579.2.7 1943 Unknown [id number] 2.16.840.1.196234.3.579.2.7 1943 Unknown [id number] 2.16.840.1.649553.3.579.2.7 1943 Unknown [id number] 2.16.840.1.238854.3.579.2.7 1943 Unknown [id number] 2.16.840.1.210031.3.579.2.7 1943 Unknown [id number] 2.16.840.1.640797.3.579.2.7 1943 Unknown [id number] 2.16.840.1.133619.3.579.2.7 1943 Unknown [id number] 2.16.840.1.442976.3.579.2.7 1943 Unknown [id number] 2.16.840.1.000535.3.579.2.7 1943 Unknown [id number] 2.16.840.1.009267.3.579.2.7 1943 Unknown [id number] 2.16.840.1.590067.3.579.2.7 1943 Unknown [id number] 2.16.840.1.023869.3.579.2.7 Social History Date Type Detail Facility Start: 06-12-2023 End: 07-23-2023 Tobacco smoking status NHIS Never smoked tobacco [facility] Work Phone: Comment on above: denies Start: 07-02-2006 End: 06-12-2023 Alcohol intake Not Asked [facility] Start: 1945 Sex Assigned At Not on file [facility] Start: 11-15-2022 End: 03-24-2023 History of Social function [facility] Start: 11-15-2022 End: 03-24-2023 Area Deprivation Index [facility] National Score (1-10 0), lower number is lower risk [facility] Comment on above: denies Clinical Notes 11-15-2022 to 06-17-2023 Isaac Matson MD - 06/12/2023 3:10 PM EDTSIsaac aparicio MD - 06/12/2023 2:26 PM EDTTelephone Encounter - Claire Campbell - 05/21/2023 9:59 AM ARYANTRachael Chaney MD - 04/28/2023 3:00 PM EDT Note Date & Type Note Facility 06-17-2023 Note HNO ID: [id number] Author: Rachael Chaney MD Service: ? Author Type: Physician Type: Progress Notes Filed: 06/17/2023 12:06 PM Note Text: [facility] Heart and Vascular [place] Stepan Sharif Department of Cardiovascular Medicine SECTION OF REGIONAL CARDIOLOGY OUTPATIENT VISIT DATE June 17, 2023 OUTPATIENT VISIT TYPE ESTABLISHED HISTORY OF PRESENT ILLNESS: Dorie Root is a (an) 78 year old year old female who is here today for follow-up. She underwent stress nuclear test and echo. Presents with Last OV 04/28/23 Dorie Root is a 77 year old female from [place], [place] here today self referral. Has h/o HTN, Rheumatic fever in her teen age requiring treatment on PCN. Also has h/o chronic vertigo/dizziness and giddiness (review of her records goes back to 2005). She was evaluated recently by Neurology. She reports also c/o vaguely described episodic non radiating chest pain discomfort to mid chest on daily basis starts in AM then goes away with the course of the day. She reports also baseline SOB that she attributed to her asthma. On Lisinopril Presents with her SOCIAL HISTORY Social History Tobacco Use Smoking status: Never ALLERGIES: Patient has no known allergies. CURRENT MEDICATIONS: Current Outpatient Medications Medication Sig topiramate (TOPAMAX) 50 mg tablet Take 1 tablet by mouth daily at bedtime. BENEFIBER, GUAR GUM, ORAL Take by mouth. Coenzyme D69-Sbjqvwy E 100-5 mg-unit cap 2 gels Orally LUTEIN-ZEAXANTHIN ORAL Take by mouth. cyanocobalamin, vitamin B-12, (VITAMIN B-12) 5,000 mcg subl Dissolve under the tongue. fsh/flx/prim/cur/bor/om3,6,9 5 (OMEGA 3-6-9 FATTY ACIDS ORAL) Take by mouth. Ascorbic Acid (VITAMIN C) 1,000 mg tablet Take 1,000 mg by mouth once daily. calcium carbonate/vitamin D3 (CALTRATE-600 PLUS VITAMIN D3 ORAL) Take by mouth. lisinopril (PRINIVIL) 10 mg tablet Take 10 mg by mouth once daily. budesonide-formoterol (SYMBICORT) 80-4.5 mcg/actuation inhaler Inhale 2 Puffs as instructed twice daily. FOSAMAX 70 MG TAB weekly ALBUTEROL 90 MCG/ACTUATION AEROSOL INHALER as needed Current Facility-Administered Medications Medication Dose Route Frequency perflutren lipid microspheres 1.3 mL in NaCl (PF) 0.9% 10 mL injection (DEFINITY) INTRAVENOUS DIRECTED PRN sodium chloride 0.9 % (flush) 10 mL (BD POSIFLUSH) 10 mL INTRAVENOUS DIRECTED PRN REVIEW OF SYSTEMS: CARDIOVASCULAR: See present history. PULMONARY:No cough or sputum production GASTROINTESTINAL:no bowel changes. GENITOURINARY:no urinary symptoms. ENDOCRINE:no chronic fatigue, significant weight loss/gain, heat/cold intolerance. NEUROLOGICAL:no focal weakness, focal sensory loss, headache, visual changes, seizure activity, ataxia, speech/language loss. RHEUMATOLOGY:no joint swelling, back pain, knee pain, hip pain, or neck pain. INFECTION:no fevers, chills, rigors or night sweats. SKIN:no rash HEMATOLOGY:no bruising, GI bleeding, hematuria, or spontaneous bleeding I have personally interviewed, confirmed and edited the above information if obtained by others - Yair Chaney M.D. PHYSICAL EXAMINATION: Last 3 Encounter BP Readings: Date: BP: 06/12/2023 154/69 04/28/2023 148/72 03/24/2023 150/65 Last 3 Encounter Pulse Readings: Date: Pulse: 06/12/2023 78 04/28/2023 60 03/24/2023 67 Last 3 Encounter Wt Readings: Date: Wt: 04/28/2023 50.3 kg (111 lb) 07/02/2006 53.5 kg (118 lb) BP 134/66 Pulse 58 Ht 5' 2 (1.58m) Wt 110 lb (49.9kg) SpO2 99% BMI 20.11 kg/(m2). GENERAL: No acute distress HEENT:Atraumatic, normocephalic. NECK: No JVD, no carotid bruit, normal carotid upstrokes, no thyromegaly CARDIAC: Regular rhythm. Normal S1 and S2. No murmur, rub or gallop. LUNGS: clear to auscultation, no rhonchi, no rales, no wheezes ABDOMEN: Bowel sounds normal. EXTREMITIES: No peripheral edema NEURO: Oriented to person, place, and time. Appropriate and cooperative, no gross deficit. CARDIOVASCULAR MEDICINE TESTING: Carotid US 01/02/23 IMPRESSION RIGHT SIDE Common carotid artery: Plaque visualized without evidence of hemodynamically significant stenosis. Internal carotid artery: 0-19% stenosis. Vertebral artery: Patent and antegrade flow noted. Subclavian artery: Plaque visualized without evidence of hemodynamically significant stenosis. LEFT SIDE Common carotid artery: Plaque visualized without evidence of hemodynamically significant stenosis. Internal carotid artery: 0-19% stenosis. Vertebral artery: Patent and antegrade flow noted. Technologist: Yu Alcantara T Ordering physician: ISAAC MATSON Interpreting physician: OLIVIA Malhotra DO 04/28/23 Echo 06/11/23 CONCLUSIONS: - Technically difficult exam due to body (more content not included)... [facility] 06-12-2023 Note HNO ID: [id number] Author: Isaac Matson MD Service: ? Author Type: Physician Type: Progress Notes Filed: 06/12/2023 3:12 PM Note Text: NEUROLOGY PROGRESS NOTE Dorie Root is a 78 year old female. Who has a history of dizziness comes in for follow up. Interval History Dorie Root is a 78 year old female, with a history of asthma and hypertension who presents with vertigo/ataxia. Patient was in her usual state of health May 2022 out of the blue she felt dizzy and vertiginous. She had this sensation of falling backwards when she stands up and gait unsteadiness. She had been seen by other doctors to, was tried on meclizine but to no avail. She also has had therapy but to no avail. Since last seen we had tried her on Topamax. She states that it might be doing something because she has less of those sensation that she when she changes position she has to hold onto her . It just happens for a few seconds and then resolves. We will increase her Topamax to 50 mg at bedtime see how she does. There is no problem list on file for this patient. No past surgical history on file. Current Outpatient Medications on File Prior to Visit Medication Sig ALBUTEROL 90 MCG/ACTUATION AEROSOL INHALER as needed Ascorbic Acid (VITAMIN C) 1,000 mg tablet Take 1,000 mg by mouth once daily. BENEFIBER, GUAR GUM, ORAL Take by mouth. budesonide-formoterol (SYMBICORT) 80-4.5 mcg/actuation inhaler Inhale 2 Puffs as instructed twice daily. calcium carbonate/vitamin D3 (CALTRATE-600 PLUS VITAMIN D3 ORAL) Take by mouth. Coenzyme [id number] E 100-5 mg-unit cap 2 gels Orally cyanocobalamin, vitamin B-12, (VITAMIN B-12) 5,000 mcg subl Dissolve under the tongue. FOSAMAX 70 MG TAB weekly fsh/flx/prim/cur/bor/om3,6,9 5 (OMEGA 3-6-9 FATTY ACIDS ORAL) Take by mouth. lisinopril (PRINIVIL) 10 mg tablet Take 10 mg by mouth once daily. LUTEIN-ZEAXANTHIN ORAL Take by mouth. Current Facility-Administered Medications on File Prior to Visit Medication perflutren lipid microspheres 1.3 mL in NaCl (PF) 0.9% 10 mL injection (DEFINITY) sodium chloride 0.9 % (flush) 10 mL (BD POSIFLUSH) Social History Tobacco Use Smoking status: Never family history is not on file. GENERAL:No weight loss, malaise or fevers., SEE HPI HEENT:Negative for frequent or significant headaches, No changes in hearing or vision, no nose bleeds or other nasal problems NECK:Negative for lumps, goiter, pain and significant neck swelling RESPIRATORY: Negative for cough, wheezing or shortness of breath. CARDIOVASCULAR: Negative for chest pain, leg swelling or palpitations. GASTROINTESTINAL: Negative for abdominal discomfort, blood in stools or black stools or change in bowel habits See HPI. All systems reviewed and are negative 06/12/23 1451 BP: 154/69 Pulse: 78 PHYSICAL EXAMINATION: General appearance: well appearing, alert, in no acute distress Neck: Supple Carotid Auscultation: Without bruits Lungs: Lungs clear to auscultation CVS: RRR without murmur Neurological exam: MENTAL STATUS: Alert, oriented to person, place and time and Follows commands CRANIAL NERVES: PERRLA, EOM's intact, Face symmetric, No dysarthria, and Tongue protrudes midline MOTOR: No drift MOTOR STRENGTH: Upper and lower extremity 5/5 bilaterally SENSATION: Intact light touch COORDINATION: Finger-to- nose-finger intact bilaterally GAIT: Normal-based IMPRESSION: 1. Dizziness/vertigo PLAN: As above. Any problems or concerns to call me or primary care physician immediately or go straight to the emergency department Return in about 3 months (around 09/12/2023). ASSESSMENT/PLAN: 1. Dizziness and giddiness - ICD9: 780.4, ICD10: R42 (primary diagnosis) 2. Vertigo - ICD9: 780.4, ICD10: R42 Isaac Matson MD I spent a total of 30 minutes on the date of the service which included preparing to see the patient, inpy-bu-leap patient care, completing clinical documentation, obtaining and/or reviewing separately obtained history, performing a medically appropriate examination, counseling and educating the patient/family/caregiver, and ordering medications, tests, or procedures. SIGNATURE: Isaac Matson MD PATIENT NAME: Dorie Root DATE: June 12, 2023 TIME: 3:10 PM 06/09/2023 PROMIS Global Health Physical Health Summary Physical health: Fair Everyday physical activity, ability: Mostly Fatigue: Moderate Pain level: 2 General health: Good Social activities/roles, ability: Good Physical Health T-Score 42.3 (Good) Physical Health Percentile 22 PROMIS Global Health Mental Health Summary Quality of life: Good Mental health (mood,thinking): Good Social satisfaction: Very good Emotional problems (anxious,depressed): Rarely Mental Health T-Score 48.3 (Very Good) Mental Health Percentile 43 Percentiles provide an indication of how a patient's score ranks in relation to the [place] (more content not included)... [facility] 06-12-2023 Note HNO ID: [id number] Author: Isaac Matson MD Service: ? Author Type: Physician Type: Progress Notes Filed: 06/12/2023 3:12 PM Note Text: 06/09/2023 PROMIS Global Health Physical Health Summary Physical health: Fair Everyday physical activity, ability: Mostly Fatigue: Moderate Pain level: 2 General health: Good Social activities/roles, ability: Good Physical Health T-Score 42.3 (Good) Physical Health Percentile 22 PROMIS Global Health Mental Health Summary Quality of life: Good Mental health (mood,thinking): Good Social satisfaction: Very good Emotional problems (anxious,depressed): Rarely Mental Health T-Score 48.3 (Very Good) Mental Health Percentile 43 Percentiles provide an indication of how a patient's score ranks in relation to the [place] general population. > 31st percentile is within normal limits or better *< 31st percentile is at least ? SD worse than population, which may be clinically relevant < 16th percentile is at least 1 SD worse than population and warrants attention 06/09/2023 Sleep Apnea Probability Snores loudly: No Tired, fatigued or sleepy in daytime: No Stops breathing or choking/gasping during sleep: No High blood pressure: Yes Sleep Apnea Probability Score: 30 (Sleep study not recommended) [facility] 06-12-2023 History of Present illness Narrative NEUROLOGY PROGRESS NOTE Dorie Root is a 78 year old female. Who has a history of dizziness comes in for follow up. Interval History Dorie Root is a 78 year old female, with a history of asthma and hypertension who presents with vertigo/ataxia. Patient was in her usual state of health May 2022 out of the blue she felt dizzy and vertiginous. She had this sensation of falling backwards when she stands up and gait unsteadiness. She had been seen by other doctors to, was tried on meclizine but to no avail. She also has had therapy but to no avail. Since last seen we had tried her on Topamax. She states that it might be doing something because she has less of those sensation that she when she changes position she has to hold onto her . It just happens for a few seconds and then resolves. We will increase her Topamax to 50 mg at bedtime see how she does. There is no problem list on file for this patient. No past surgical history on file. Current Outpatient Medications on File Prior to Visit Medication Sig ALBUTEROL 90 MCG/ACTUATION AEROSOL INHALER as needed Ascorbic Acid (VITAMIN C) 1,000 mg tablet Take 1,000 mg by mouth once daily. BENEFIBER, GUAR GUM, ORAL Take by mouth. budesonide-formoterol (SYMBICORT) 80-4.5 mcg/actuation inhaler Inhale 2 Puffs as instructed twice daily. calcium carbonate/vitamin D3 (CALTRATE-600 PLUS VITAMIN D3 ORAL) Take by mouth. Coenzyme [id number] E 100-5 mg-unit cap 2 gels Orally cyanocobalamin, vitamin B-12, (VITAMIN B-12) 5,000 mcg subl Dissolve under the tongue. FOSAMAX 70 MG TAB weekly fsh/flx/prim/cur/bor/om3,6,9 5 (OMEGA 3-6-9 FATTY ACIDS ORAL) Take by mouth. lisinopril (PRINIVIL) 10 mg tablet Take 10 mg by mouth once daily. LUTEIN-ZEAXANTHIN ORAL Take by mouth. Current Facility-Administered Medications on File Prior to Visit Medication perflutren lipid microspheres 1.3 mL in NaCl (PF) 0.9% 10 mL injection (DEFINITY) sodium chloride 0.9 % (flush) 10 mL (BD POSIFLUSH) Social History Tobacco Use Smoking status: Never family history is not on file. GENERAL:No weight loss, malaise or fevers., SEE HPI HEENT:Negative for frequent or significant headaches, No changes in hearing or vision, no nose bleeds or other nasal problems NECK:Negative for lumps, goiter, pain and significant neck swelling RESPIRATORY: Negative for cough, wheezing or shortness of breath. CARDIOVASCULAR: Negative for chest pain, leg swelling or palpitations. GASTROINTESTINAL: Negative for abdominal discomfort, blood in stools or black stools or change in bowel habits See HPI. All systems reviewed and are negative 06/12/23 1451 BP: 154/69 Pulse: 78 PHYSICAL EXAMINATION: General appearance: well appearing, alert, in no acute distress Neck: Supple Carotid Auscultation: Without bruits Lungs: Lungs clear to auscultation CVS: RRR without murmur Neurological exam: MENTAL STATUS: Alert, oriented to person, place and time and Follows commands CRANIAL NERVES: PERRLA, EOM's intact, Face symmetric, No dysarthria, and Tongue protrudes midline MOTOR: No drift MOTOR STRENGTH: Upper and lower extremity 5/5 bilaterally SENSATION: Intact light touch COORDINATION: Finger-to- nose-finger intact bilaterally GAIT: Normal-based IMPRESSION: 1. Dizziness/vertigo PLAN: As above. Any problems or concerns to call me or primary care physician immediately or go straight to the emergency department Return in about 3 months (around 09/12/2023). ASSESSMENT/PLAN: 1. Dizziness and giddiness - ICD9: 780.4, ICD10: R42 (primary diagnosis) 2. Vertigo - ICD9: 780.4, ICD10: R42 Isaac Matson MD I spent a total of 30 minutes on the date of the service which included preparing to see the patient, vyly-fj-ymfj patient care, completing clinical documentation, obtaining and/or reviewing separately obtained history, performing a medically appropriate examination, counseling and educating the patient/family/caregiver, and ordering medications, tests, or procedures. SIGNATURE: Isaac Matson MD PATIENT NAME: Dorie Root DATE: June 12, 2023 TIME: 3:10 PM 06/09/2023 PROMIS Global Health Physical Health Summary Physical health: Fair Everyday physical activity, ability: Mostly Fatigue: Moderate Pain level: 2 General health: Good Social activities/roles, ability: Good Physical Health T-Score 42.3 (Good) Physical Health Percentile 22 PROMIS Global Health Mental Health Summary Quality of life: Good Mental health (mood,thinking): Good Social satisfaction: Very good Emotional problems (anxious,depressed): Rarely Mental Health T-Score 48.3 (Very Good) Mental Health Percentile 43 Percentiles provide an indication of how a patient's score ranks in relation to the [place] general population. > 31st percentile is within normal limits or better *< 31st percentile is at least SD worse than population, which may be clinically relevant < 16th percentile is at least 1 SD worse than population and warrants attention 06/09/2023 Sleep Apnea Probability Snores loudly: No Tired, fatigued or sleepy in daytime: No Stops breathing or choking/gasping during sleep: No High blood pressure: Yes Sleep Apnea Probability Score: 30 (Sleep study not recommended) 06/09/2023 PROMIS Global Health Physical Health Summary Physical health: Fair Everyday physical activity, ability: Mostly Fatigue: Moderate Pain level: 2 General health: Good Social activities/roles, ability: Good Physical Health T-Score 42.3 (Good) Physical Health Percentile 22 PROMIS Global Health Mental Health Summary Quality of life: Good Mental health (mood,thinking): Good Social satisfaction: Very good Emotional problems (anxious,depressed): Rarely Mental Health T-Score 48.3 (Very Good) Mental Health Percentile 43 Percentiles provide an indication of how a patient's score ranks in relation to the [place] general population. > 31st percentile is within normal limits or better *< 31st percentile is at least SD worse than population, which may be clinically relevant < 16th percentile is at least 1 SD worse than population and warrants attention 06/09/2023 Sleep Apnea Probability Snores loudly: No Tired, fatigued or sleepy in daytime: No Stops breathing or choking/gasping during sleep: No High blood pressure: Yes Sleep Apnea Probability Score: 30 (Sleep study not recommended) documented in this encounter [facility] 06-11-2023 Note HNO ID: [id number] Author: Ricardo Concepcion RT(R) Service: Nuclear Medicine Author Type: Technologist Type: Progress Notes Filed: 06/11/2023 1:35 PM Note Text: RADIOLOGY SERVICE PROGRESS NOTE SERVICE DATE: 06/11/2023 SERVICE TIME: 1:34 PM PATIENT IDENTITY VERIFICATION COMPLETED USING TWO (2) STANDARD IDENTIFIERS: Name and Date of confirmed by patient verbally FALL SCREENING: Has the patient had 2 falls in the last year or 1 fall with injury or currently using an Ambulatory Assistive Device (Walker, Cane, Wheelchair, Crutches, etc.)? No PATIENT GENDER DATA: .female : No ALLERGIES: Reviewed and unchanged MEDICATIONS REVIEWED: No PATIENT RELEVANT IMPLANT DATA REVIEWED: Not Applicable CREATININE: No results found for: CREAT , EGFROTH , EGFRAA P.O.C.T. RESULTS: N/A June 11, [address] PERFORMED: No IV SITE: Ambulatory: A peripheral IV was started in the Left hand with a Angio cath: 24 gauge. POST EXAM PIV STATUS: Discontinued PROCEDURE TYPE: NM Stress: 12.9 mCi [id number] was administered IV for Rest Imaging at 1235 by MB. 33.0 mCi [id number] was administered IV for Stress Imaging at 1332 by MB. PATIENT DISCHARGED TO: Ambulatory patient, left [place] department area. A Diagnostic radioactive procedure has taken place, with no further precautions necessary other than routine body substance precautions. More information regarding radiation safety can be found using this link: [email or web address] SIGNATURE: RT Edi(R) PATIENT NAME: Dorie Root DATE: June 11, 2023 TIME: 1:34 PM PAGER/CONTACT #: [facility] 05-21-2023 Miscellaneous Notes Medical records request has been sent. Fax confirmation was also scanned into pt chart Routing to PSS to assist. Dorie Root is calling Rachael Chaney MD today to request Dr. Chaney to request medical records from patient's visit at [facility] from 05.09.23. Please call patient for any additional questions. Fax number: [phone] Patient has been identified by name and birthdate. Duration of symptoms: N/A Person calling: self Call patient at: at home [phone] (home) [phone] (work) [phone] (cell) Was an appointment scheduled: No Closing statement: Results or non-symptom based questions: Thank you for calling [facility], your call will be returned within the next business day. Thank you, Emerita Haque documented in this encounter [facility] 04-28-2023 Note HNO ID: [id number] Author: Rachael Chaney MD Service: ? Author Type: Physician Type: Progress Notes Filed: 04/28/2023 5:38 PM Note Text: [facility] Heart [facility] [place] Ste[facility] Sharif Department of Cardiovascular Medicine SECTION OF REGIONAL CARDIOLOGY OUTPATIENT VISIT DATE April 28, 2023 OUTPATIENT VISIT TYPE NEW PRIMARY CARE PHYSICIAN: Srinivasan Lezama MD REFERRING PHYSICIAN: No ref. provider found HISTORY OF PRESENT ILLNESS: Dorie Root is a 77 year old female from [place], [place] here today self referral. Has h/o HTN, Rheumatic fever in her teen age requiring treatment on PCN. Also has h/o chronic vertigo/dizziness and giddiness (review of her records goes back to 2005). She was evaluated recently by Neurology. She reports also c/o vaguely described episodic non radiating chest pain discomfort to mid chest on daily basis starts in AM then goes away with the course of the day. She reports also baseline SOB that she attributed to her asthma. On Lisinopril Presents with her SOCIAL HISTORY Social History Tobacco Use Smoking status: Never ALLERGIES: Patient has no known allergies. CURRENT MEDICATIONS: Current Outpatient Medications Medication Sig topiramate (TOPAMAX) 25 mg tablet Take 1 tablet by mouth daily at bedtime. lisinopril (PRINIVIL) 10 mg tablet Take 10 mg by mouth once daily. budesonide-formoterol (SYMBICORT) 80-4.5 mcg/actuation inhaler Inhale 2 Puffs as instructed twice daily. FOSAMAX 70 MG TAB weekly ESTRACE 1 MG TAB weekly ALBUTEROL 90 MCG/ACTUATION AEROSOL INHALER as needed No current facility-administered medications for this visit. REVIEW OF SYSTEMS: CARDIOVASCULAR: See present history. PULMONARY:No cough or sputum production GASTROINTESTINAL:no bowel changes. GENITOURINARY:no urinary symptoms. ENDOCRINE:no chronic fatigue, significant weight loss/gain, heat/cold intolerance. NEUROLOGICAL:no focal weakness, focal sensory loss, headache, visual changes, seizure activity, ataxia, speech/language loss. RHEUMATOLOGY:no joint swelling INFECTION:no fevers, chills, rigors or night sweats. SKIN:no rash HEMATOLOGY:no bruising, GI bleeding, hematuria, or spontaneous bleeding I have personally interviewed, confirmed and edited the above information if obtained by others - Yair Chaney M.D. PHYSICAL EXAMINATION: Last 3 Encounter BP Readings: Date: BP: 03/24/2023 150/65 12/23/2022 163/78 07/02/2006 140/70 Last 3 Encounter Pulse Readings: Date: Pulse: 03/24/2023 67 12/23/2022 78 07/02/2006 68 Last 3 Encounter Wt Readings: Date: Wt: 07/02/2006 53.5 kg (118 lb) BP 142/72 Pulse 60 Ht 5' 2 (1.58m) Wt 111 lb (50.3kg) SpO2 99% BMI 20.30 kg/(m2). GENERAL:No acute distress HEENT:Atraumatic, normocephalic. NECK: No JVD, no HJR, no carotid bruit, normal carotid upstrokes, no thyromegaly CARDIAC: Regular rhythm. Normal S1 and S2. No murmur, rub or gallop. LUNGS: clear to auscultation, no rhonchi, no rales, no wheezes ABDOMEN: Bowel sounds normal. EXTREMITIES: No peripheral edema NEURO: Oriented to person, place, and time. Appropriate and cooperative, no gross deficit. CARDIOVASCULAR MEDICINE TESTING: Carotid US 01/02/23 IMPRESSION RIGHT SIDE Common carotid artery: Plaque visualized without evidence of hemodynamically significant stenosis. Internal carotid artery: 0-19% stenosis. Vertebral artery: Patent and antegrade flow noted. Subclavian artery: Plaque visualized without evidence of hemodynamically significant stenosis. LEFT SIDE Common carotid artery: Plaque visualized without evidence of hemodynamically significant stenosis. Internal carotid artery: 0-19% stenosis. Vertebral artery: Patent and antegrade flow noted. Technologist: Yu Alcantara RVT Ordering physician: ISAAC MATSON Interpreting physician: OLIVIA Malhotra DO 04/28/23 ASSESSMENT/PLAN: Dorie Root is a 77 year old female from [place], [place] here today self referral. Has h/o HTN, Rheumatic fever in her teen age requiring treatment on PCN. Also has h/o chronic vertigo/dizziness and giddiness (review of her records goes back to 2005). She was evaluated recently by Neurology. She reports also c/o vaguely described episodic non radiating chest pain discomfort to mid chest on daily basis starts in AM then goes away with the course of the day. She reports also baseline SOB that she attributed to her asthma. On Lisinopril Presents with her 1. Episodic vaguely described chest pain, chronic baseline SOB, vertigo/Dizziness in s/o personal h/o rheumatic fever in her teenage requiring tx with PCN, h/o HTN, - She was evaluated recently by Neurology. - On Lisinopril - Will ch (more content not included)... [facility] 04-28-2023 History of Present illness Narrative Images from the original note were not included. [facility] Heart and V[facility] [place] [facility] Sharif Department of Cardiovascular Medicine SECTION OF REGIONAL CARDIOLOGY OUTPATIENT VISIT DATE April 28, 2023 OUTPATIENT VISIT TYPE NEW PRIMARY CARE PHYSICIAN: Srinivasan Lezama MD REFERRING PHYSICIAN: No ref. provider found HISTORY OF PRESENT ILLNESS: Dorie Root is a 77 year old female from [place], [place] here today self referral. Has h/o HTN, Rheumatic fever in her teen age requiring treatment on PCN. Also has h/o chronic vertigo/dizziness and giddiness (review of her records goes back to 2005). She was evaluated recently by Neurology. She reports also c/o vaguely described episodic non radiating chest pain discomfort to mid chest on daily basis starts in AM then goes away with the course of the day. She reports also baseline SOB that she attributed to her asthma. On Lisinopril Presents with her SOCIAL HISTORY Social History Tobacco Use Smoking status: Never ALLERGIES: Patient has no known allergies. CURRENT MEDICATIONS: Current Outpatient Medications Medication Sig topiramate (TOPAMAX) 25 mg tablet Take 1 tablet by mouth daily at bedtime. lisinopril (PRINIVIL) 10 mg tablet Take 10 mg by mouth once daily. budesonide-formoterol (SYMBICORT) 80-4.5 mcg/actuation inhaler Inhale 2 Puffs as instructed twice daily. FOSAMAX 70 MG TAB weekly ESTRACE 1 MG TAB weekly ALBUTEROL 90 MCG/ACTUATION AEROSOL INHALER as needed No current facility-administered medications for this visit. REVIEW OF SYSTEMS: CARDIOVASCULAR: See present history. PULMONARY:No cough or sputum production GASTROINTESTINAL:no bowel changes. GENITOURINARY:no urinary symptoms. ENDOCRINE:no chronic fatigue, significant weight loss/gain, heat/cold intolerance. NEUROLOGICAL:no focal weakness, focal sensory loss, headache, visual changes, seizure activity, ataxia, speech/language loss. RHEUMATOLOGY:no joint swelling INFECTION:no fevers, chills, rigors or night sweats. SKIN:no rash HEMATOLOGY:no bruising, GI bleeding, hematuria, or spontaneous bleeding I have personally interviewed, confirmed and edited the above information if obtained by others - Yair Chaney M.D. PHYSICAL EXAMINATION: Last 3 Encounter BP Readings: Date: BP: 03/24/2023 150/65 12/23/2022 163/78 07/02/2006 140/70 Last 3 Encounter Pulse Readings: Date: Pulse: 03/24/2023 67 12/23/2022 78 07/02/2006 68 Last 3 Encounter Wt Readings: Date: Wt: 07/02/2006 53.5 kg (118 lb) BP 142/72 Pulse 60 Ht 5' 2 (1.58m) Wt 111 lb (50.3kg) SpO2 99% BMI 20.30 kg/(m^2). GENERAL:No acute distress HEENT:Atraumatic, normocephalic. NECK: No JVD, no HJR, no carotid bruit, normal carotid upstrokes, no thyromegaly CARDIAC: Regular rhythm. Normal S1 and S2. No murmur, rub or gallop. LUNGS: clear to auscultation, no rhonchi, no rales, no wheezes ABDOMEN: Bowel sounds normal. EXTREMITIES: No peripheral edema NEURO: Oriented to person, place, and time. Appropriate and cooperative, no gross deficit. CARDIOVASCULAR MEDICINE TESTING: Carotid US 01/02/23 IMPRESSION RIGHT SIDE Common carotid artery: Plaque visualized without evidence of hemodynamically significant stenosis. Internal carotid artery: 0-19% stenosis. Vertebral artery: Patent and antegrade flow noted. Subclavian artery: Plaque visualized without evidence of hemodynamically significant stenosis. LEFT SIDE Common carotid artery: Plaque visualized without evidence of hemodynamically significant stenosis. Internal carotid artery: 0-19% stenosis. Vertebral artery: Patent and antegrade flow noted. Technologist: Yu Alcantara RVT Ordering physician: ISAAC MATSON Interpreting physician: OLIVIA Malhotra DO 04/28/23 ASSESSMENT/PLAN: Dorie Root is a 77 year old female from [place], [place] here today self referral. Has h/o HTN, Rheumatic fever in her teen age requiring treatment on PCN. Also has h/o chronic vertigo/dizziness and giddiness (review of her records goes back to 2005). She was evaluated recently by Neurology. She reports also c/o vaguely described episodic non radiating chest pain discomfort to mid chest on daily basis starts in AM then goes away with the course of the day. She reports also baseline SOB that she attributed to her asthma. On Lisinopril Presents with her 1. Episodic vaguely described chest pain, chronic baseline SOB, vertigo/Dizziness in s/o personal h/o rheumatic fever in her teenage requiring tx with PCN, h/o HTN, - She was evaluated recently by Neurology. - On Lisinopril - Will check 2 D echo evaluate valvular/structural problems - Also will check a pharmacological nuclear test rule out ischemia and FLP then follow up This note was partially generated using Neema voice recognition system, and there may be some incorrect words, spellings, and punctuation that were not noted in checking the note before saving. Yair Chaney M.D., F.Raisa.CZuleikaC CONTACT INFORMATION: Leonel Chaney M.D., Kahlil. Student Finance Specialist Clinical cashier ticket selling [facility] Staff Nurses Director Ezequiel Milligan [facility] Mail Code [id number] [facility] [place] [address] CC: Srinivasan Lezama [facility] [place] [address] documented in this encounter [facility] 03-24-2023 Note HNO ID: [id number] Author: Isaac Matson MD Service: ? Author Type: Physician Type: Progress Notes Filed: 03/24/2023 1:47 PM Note Text: NEUROLOGY PROGRESS NOTE Dorie Root is a 77 year old female. Who has a history of dizziness comes in for follow up. Interval History Dorie Root is a 77 year old female, with a history of asthma and hypertension who presents with vertigo/ataxia. Patient was in her usual state of health May 2022 out of the blue she felt dizzy and vertiginous. She had this sensation of falling backwards when she stands up and gait unsteadiness. She had been seen by other doctors to, was tried on meclizine but to no avail. She also has had therapy but to no avail. Symptoms have not changed since May. Patient had an MRI of the brain that came back unremarkable. Carotid duplex showed no significant hemodynamic stenosis. Nortriptyline seems to have helped. She she states that she is not as dizzy as much as she had prior to nortriptyline however the nortriptyline seems to be giving her constipation. Lastly the patient was in her usual state of health she has a history of irritable bowel syndrome and was trying to strain on the toilet and apparently she may have passed out. There is no note of tongue biting or incontinence. She had a CT of the brain which they were told was unremarkable. She had some stitches in the left eyebrow. would like to change the medication that would cause less constipation. We will try Topamax 25 mg at bedtime. There is no problem list on file for this patient. No past surgical history on file. Current Outpatient Medications on File Prior to Visit Medication Sig lisinopril (PRINIVIL) 10 mg tablet Take 10 mg by mouth once daily. budesonide-formoterol (SYMBICORT) 80-4.5 mcg/actuation inhaler Inhale 2 Puffs as instructed twice daily. FOSAMAX 70 MG TAB weekly ALBUTEROL 90 MCG/ACTUATION AEROSOL INHALER as needed ESTRACE 1 MG TAB weekly No current facility-administered medications on file prior to visit. Social History Tobacco Use Smoking status: Never family history is not on file. GENERAL:No weight loss, malaise or fevers., SEE HPI HEENT:No changes in hearing or vision, no nose bleeds or other nasal problems NECK:Negative for lumps, goiter, pain and significant neck swelling RESPIRATORY: Negative for cough, wheezing or shortness of breath. CARDIOVASCULAR: Negative for chest pain, leg swelling or palpitations. GASTROINTESTINAL: Negative for abdominal discomfort, blood in stools or black stools or change in bowel habits See HPI. All systems reviewed and are negative 03/24/23 1327 BP: 150/65 Pulse: 67 SpO2: 96% PHYSICAL EXAMINATION: General appearance: well appearing, alert, in no acute distress Neck: Supple Carotid Auscultation: Without bruits Lungs: Lungs clear to auscultation CVS: RRR without murmur Neurological exam: MENTAL STATUS: Alert, oriented to person, place and time and Follows commands CRANIAL NERVES: PERRLA, EOM's intact, Face symmetric, and Tongue protrudes midline MOTOR: No drift MOTOR STRENGTH: Upper and lower extremity 5/5 bilaterally REFLEXES: UE and LE reflexes are equal and reactive SENSATION: Intact light touch COORDINATION: Finger-to- nose-finger intact bilaterally GAIT: Normal-based IMPRESSION: 1. Dizziness PLAN: Any problems or concerns to call me or primary care physician immediately or go straight to the emergency department Return in about 3 months (around 06/24/2023). ASSESSMENT/PLAN: 1. Dizziness and giddiness - ICD9: 780.4, ICD10: R42 Isaac Matson MD Patient evaluated on the date of the service which included preparing to see the patient, [id number] patient care, completing clinical documentation, obtaining and/or reviewing separately obtained history, performing a medically appropriate examination, counseling and educating the patient/family/caregiver, and ordering medications, tests, or procedures. SIGNATURE: Isaac Matson MD PATIENT NAME: Dorie Root DATE: March 24, 2023 TIME: 1:43 PM [facility] 01-16-2023 Miscellaneous Notes Radiology Service Progress Note PATIENT NAME: Dorie Root DATE OF SERVICE: January 16, 2023 TIME: 1:25 PM PATIENT IDENTITY VERIFICATION COMPLETED USING TWO (2) IDENTIFIERS: Name and Date of confirmed by patient verbally. FALL SCREENING: Has the patient had 2 falls in the last year or 1 fall with injury or currently using an Ambulatory Assistive Device (Walker, Cane, Wheelchair, Crutches, etc.)? No PATIENT GENDER DATA: Female. status: : No status: NO. PATIENT RELEVANT IMPLANT DATA REVIEWED: Yes RADIOLOGY DEPARTMENT: MR; Exam(s) Completed: Head: Routine Brain PERIPHERAL IV DATA: Not applicable SIGNED BY: RT Grabiel(R) Courtney Charles(Maria Eugenia) January 16, 2023 1:25 PM documented in this encounter [facility] 12-23-2022 History and physical note NEUROLOGY CONSULT NOTE PATIENT NAME: Dorie Root DATE: December 23, 2022 PRIMARY CARE PHYSICIAN: Juliano Sharma MD REASON FOR CONSULT: Dizziness REQUESTING PHYSICIAN: No ref. provider found My final recommendations will be communicated to the requesting health care provider by way of shared medical record for internal providers. ASSESSMENT: This is Dorie Root is a 77 year old female with a history of hypertension, asthma 1. Ataxia rule up to rule out or consider posterior circulation stroke 2. Vertigo/dizziness PLAN: MRI of the brain will be ordered, carotid duplex. Start nortriptyline for now 10 mg at bedtime. Any problems or concerns to call me or primary care physician immediately or go straight to the emergency department HISTORY OF PRESENT ILLNESS: Dorie Root is a 77 year old female, with a history of asthma and hypertension who presents with vertigo/ataxia. Patient was in her usual state of health May 2022 out of the blue she felt dizzy and vertiginous. She had this sensation of falling backwards when she stands up and gait unsteadiness. She had been seen by other doctors to, was tried on meclizine but to no avail. She also has had therapy but to no avail. Symptoms have not changed since May. They wanted to seek another opinion and that is the reason why they are here today. COMPLETE REVIEW OF SYSTEMS: GENERAL: No weight loss, malaise or fevers RESPIRATORY: Negative for cough, hemoptysis, wheezing, COPD, dyspnea or shortness of breath CARDIOVASCULAR: Negative for chest pain, leg swelling, hypertension, CHF or palpitations GI: No nausea, vomiting, or diarrhea See HPI. All other systems reviewed and are negative. No past medical history on file. No past surgical history on file. No family history on file. Social History Tobacco Use Smoking status: Never MEDICATIONS: Current Outpatient Medications Medication Sig Dispense Refill lisinopril (PRINIVIL) 10 mg tablet Take 10 mg by mouth once daily. budesonide-formoterol (SYMBICORT) 80-4.5 mcg/actuation inhaler Inhale 2 Puffs as instructed twice daily. FOSAMAX 70 MG TAB weekly 0 0 ESTRACE 1 MG TAB weekly 0 0 ALBUTEROL 90 MCG/ACTUATION AEROSOL INHALER as needed 0 0 nortriptyline (PAMELOR) 10 mg capsule Take 1 capsule by mouth daily at bedtime. 30 capsule 2 No current facility-administered medications for this visit. Problem List There is no problem list on file for this patient. ALLERGIES: ALLERGIES No Known Allergies PHYSICAL EXAM: BP 163/78 Pulse 78 General appearance: well appearing, alert, and in no acute distress Skin: skin color, texture, turgor normal, no rashes or lesions Head: normal Ears: Not examined Carotid Auscultation: Without bruits Lungs: lungs clear to auscultation no wheezing or rhonchi CVS: Negative. RRR without murmur Neurological exam: Mental Status: Alert, oriented to person, place and time and Follows commands. Language: Comprehension intact? (simple commands - Yes, complex commands Yes), Fluency intact? Yes, repetition intact? Yes, reading intact? Yes, naming intact? Yes. Cranial Nerves: CNII: Visual acuity normal, Visual cao full to confrontation CNIII, IV, : Pupils equal, round and reactive to light, full extraoccular movements without nystagmus CN V: Facial sensation intact bilaterally to fine touch and pinprick, masseter 5/5 CN VII: Facial muscles symmetric and strong CN VIII: Hears finger rub well bilaterally CN IX: Deferred CN X: Palate elevates symmetrically CN XI: Full strength shoulder shrug bilaterally CN XII: Tongue protrusion full and midline Non-Dilated Fundiscopic Examination: Deferred Deferred Examination Motor Exam: Muscle bulk: Normal b/l Muscle Tone: Normal Muscle Power: Muscle Power: Moved all four extremities spontaneously with no focal motor weakness Reflexes: Symmetrically present Plantars: equivocal Sensation: Sensation is intact to light touch Coordination: Finger-to- nose-finger intact bilaterally. Gait: Steady, tendency to fall backwards while standing up straight also when she closes her eyes Return in about 3 months (around 03/24/2023). 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 Dizziness and giddiness - ICD9: 780.4, ICD10: R42 - US CAROTID ARTERIES [facility] 3. Vertigo - ICD9: 780.4, ICD10: R42 - MRI BRAIN WO IVCON Isaac Matson MD Patient evaluated on the date of the service which included preparing to see the patient, [id number] patient care, completing clinical documentation, obtaining and/or reviewing separately obtained history, performing a medically appropriate examination, counseling and educating the patient/family/caregiver, and ordering medications, tests, or procedures. Signature Isaac Matson MD Staff, Neurology December 23, 2022 1:34 PM documented in this encounter [facility] 11-15-2022 Note HNO ID: [id number] Author: Lauren Mccauley, PhD Service: ? Author Type: Ingot Stripper Type: Progress Notes Filed: 11/21/2022 7:44 AM Note Text: Head and Neck [place] [facility] Vestibular Test Battery Report Name: Dorie Root [facility]#: [id number] Date of Service: 11/15/2022 Date of : 1945 Age: [age] year old Referred by: Hema Good MD And is a patient of Juliano Sharma MD Referred for: Evaluation of suspected change in hearing, tinnitus, or balance. Referral documented: In an order in [facility] Pretest Instructions: All pretest instructions were completed prior to testing: no alcohol, no medication for dizziness/motion sickness, no sedatives (sleep aids, tranquilizers, antihistamines), no eye makeup and only have a light meal prior to testing. Impressions and Recommendations OVERALL IMPRESSIONS: Normal vestibular evaluation. Low likelihood of active peripheral vestibular system involvement to account for patient's daily symptoms of lightheadedness, dizziness and imbalance occurring daily in the morning only. However, we cannot rule out other contributors (head pain?) to symptoms or triggers for episodes of imbalance/dizziness. Dorie Root presents with dizziness and lightheadedness described as imbalance and inability to stand up or walk straight. Symptoms began the end May of 2022, with the most recently experienced symptoms occurring today. Symptoms are a little worse since onset. Symptoms last for hours in duration and occur every morning. Rarely she feels free from her symptoms in the afternoon or evenings. Symptoms are provoked by unknown. Associated symptoms include occasional sharp, brief lasting pain on the right side of her head around the latter day region that occurs very rarely, about once a month. Symptoms are alleviated by nothing, she just sits if she can. Dorie denies any auditory and visual complaints, other than occasional blurry vision. Dorie denies recent head or neck injury. Dorie denied a history of headaches or migraines. Dorie has not fallen in the past year, and is restricting activities due to symptoms. Dorie has participated in vestibular rehabilitation (4 visits) to help address current symptoms; however she denied any benefit. Other relevant medical history includes concern for Chiari malformation. Experiences head pain when she performs the valsalva maneuver around the occipital region of the scalp. Symptom Ratin-9/10 today (0 = no symptoms, 10 = severe symptoms). Today's evaluation revealed the following: There were no indications of peripheral vestibular system pathway involvement noted. Normal investigation of superior and inferior vestibular nerve function via examination of the semicircular canals. Normal mid and high frequency vestibulo-ocular reflex (VOR) function as evident by rotary chair gain and vHIT semicircular canal gain (no saccades). There were no clinically significant signs of pathophysiologic nystagmus provoked during gaze stability testing with fixation removed, post-headshake testing, positional testing, mastoid vibration testing, and neck torsion. Some non-clinically significant intermittent nystagmus was observed during neck torsion left, and mastoid vibration left and right. Low likelihood of active peripheral vestibular system involvement There were no subjective or objective indications of Benign Paroxysmal Positional Vertigo (BPPV); however, slight right beating nystagmus was noted in the right ear down position, slight left beating nystagmus was noted in the left ear down position, and slight right beating nystagmus was noted in the head center supine position. Note, none of the values were considered to be clinically significant, and the patient did not note any symptoms. There were no indications of central vestibulo-ocular pathway involvement noted. Normal oculomotor examination. Normal observation of gait and transfers. Postural control findings demonstrate a severe sensory system dysfunction indicating difficulty in using sensory cues (vestibular, visual and/or somatosensory) during the Modified Clinical Test of Sensory Integration on Balance (mCTSIB). Abnormal increased body sway observed during eyes open on firm support surfaces. RECOMMENDATIONS: * Continue medical follow-up with Juliano Sharma MD * Consider re-evaluation as medically indicated. * Consider maintaining a healthy sleep schedule in addition to diet, hydration, and exercise. * Consider referral to balance rehabilitation therapy to address persistent symptoms and to increase balance confidence. Treatment focus may consider elements of traditional therapy techniques: 1) gaze stabilization exercises, 2) habituation, 3) sensory substitution, and 4) general balance/gait exercises to improve functioning during activities of daily living and reduce falling risk. Additional general (more content not included)... [facility] 11-15-2022 Instructions Michela Debra - 11/15/2022 1:48 PM EDT [facility] Head and Neck [place] [facility] For the body to feel balanced, the brain requires input from inner ear organs, eyes, muscles, and joints. Symptoms of dizziness, imbalance, vertigo, or lightheadedness may have many different causes. These symptoms may be due to problems associated with your inner ear, vision, brain, heart, medications, or other health conditions. Today you completed a comprehensive evaluation of your ear vestibular balance system. Our vestibular system involves 3 semicircular canals (our head rotation sensors), 2 otolith organs (our gravity sensors), and our vestibular nerve. Test Summary: The purpose of today's evaluation was to assess for any peripheral, or inner ear involvement for the symptoms you have been experiencing. Based on today s evaluation, your vestibular system appears to be normal. Overall low likelihood of active inner ear balance system contributors to your symptoms. Recommendations: * Continue medical follow-up with Juliano Sharma MD * Consider re-evaluation as medically indicated * Maintain a healthy sleep schedule in addition to diet, hydration, and exercise to help your body function overall. * Consider Balance therapy (Physical Therapy) to increase balance confidence. * Consider further investigation into non-vestibular conditions omar account for symptoms of lightheadedness. Recommend further consultation with Primary Care Provider. Consider further investigation in to polypharmacy causes for symptoms. * If sharp pains in head become more frequent or bothersome, follow up with primary care provider. * Consider referral to neurology for further investigation of symptoms. Falling Risk: Dizziness, vertigo and/or imbalance are symptoms that raise concern for falling risk. Below are some tips to reduce falls: Install night lights; always turn on a light before entering a room. Keep walkways well lit. Remove home hazards such as floor throw rugs, loose electrical cords, stools or other small pieces of furniture that can trip people, and all floor clutter. Change positions or turn slowly and have something nearby to hold onto. Keep medical conditions under control by taking prescribed medications and/or following a prescribed diet. Learn to practice exercises that can improve balance, such as Chandler Chi or yoga. Wear low-heeled shoes, walking shoes, or other flexible shoes with good traction Always use handrails when walking up and down stairs. Discuss with a health care provider any concerns you have about falls, or if you experience a fall. documented in this encounter [facility] 11-15-2022 History of Present illness Narrative Head and Neck [place] [facility] Laboratory Vestibular Test Battery Report Name: Dorie Root [facility]#: [id number] Date of Service: 11/15/2022 Date of : 1945 Age: [age] year old Referred by: Hema Good MD And is a patient of Juliano Sharma MD Referred for: Evaluation of suspected change in hearing, tinnitus, or balance. Referral documented: In an order in [facility] Pretest Instructions: All pretest instructions were completed prior to testing: no alcohol, no medication for dizziness/motion sickness, no sedatives (sleep aids, tranquilizers, antihistamines), no eye makeup and only have a light meal prior to testing. Impressions and Recommendations OVERALL IMPRESSIONS: Normal vestibular evaluation. Low likelihood of active peripheral vestibular system involvement to account for patient's daily symptoms of lightheadedness, dizziness and imbalance occurring daily in the morning only. However, we cannot rule out other contributors (head pain?) to symptoms or triggers for episodes of imbalance/dizziness. Dorie Root presents with dizziness and lightheadedness described as imbalance and inability to stand up or walk straight. Symptoms began the end May of 2022, with the most recently experienced symptoms occurring today. Symptoms are a little worse since onset. Symptoms last for hours in duration and occur every morning. Rarely she feels free from her symptoms in the afternoon or evenings. Symptoms are provoked by unknown. Associated symptoms include occasional sharp, brief lasting pain on the right side of her head around the latter day region that occurs very rarely, about once a month. Symptoms are alleviated by nothing, she just sits if she can. Dorie denies any auditory and visual complaints, other than occasional blurry vision. Dorie denies recent head or neck injury. Dorie denied a history of headaches or migraines. Dorie has not fallen in the past year, and is restricting activities due to symptoms. Dorie has participated in vestibular rehabilitation (4 visits) to help address current symptoms; however she denied any benefit. Other relevant medical history includes concern for Chiari malformation. Experiences head pain when she performs the valsalva maneuver around the occipital region of the scalp. Symptom Ratin-9/10 today (0 = no symptoms, 10 = severe symptoms). Today's evaluation revealed the following: There were no indications of peripheral vestibular system pathway involvement noted. Normal investigation of superior and inferior vestibular nerve function via examination of the semicircular canals. Normal mid and high frequency vestibulo-ocular reflex (VOR) function as evident by rotary chair gain and vHIT semicircular canal gain (no saccades). There were no clinically significant signs of pathophysiologic nystagmus provoked during gaze stability testing with fixation removed, post-headshake testing, positional testing, mastoid vibration testing, and neck torsion. Some non-clinically significant intermittent nystagmus was observed during neck torsion left, and mastoid vibration left and right. Low likelihood of active peripheral vestibular system involvement There were no subjective or objective indications of Benign Paroxysmal Positional Vertigo (BPPV); however, slight right beating nystagmus was noted in the right ear down position, slight left beating nystagmus was noted in the left ear down position, and slight right beating nystagmus was noted in the head center supine position. Note, none of the values were considered to be clinically significant, and the patient did not note any symptoms. There were no indications of central vestibulo-ocular pathway involvement noted. Normal oculomotor examination. Normal observation of gait and transfers. Postural control findings demonstrate a severe sensory system dysfunction indicating difficulty in using sensory cues (vestibular, visual and/or somatosensory) during the Modified Clinical Test of Sensory Integration on Balance (mCTSIB). Abnormal increased body sway observed during eyes open on firm support surfaces. RECOMMENDATIONS: * Continue medical follow-up with Juliano Sharma MD * Consider re-evaluation as medically indicated. * Consider maintaining a healthy sleep schedule in addition to diet, hydration, and exercise. * Consider referral to balance rehabilitation therapy to address persistent symptoms and to increase balance confidence. Treatment focus may consider elements of traditional therapy techniques: 1) gaze stabilization exercises, 2) habituation, 3) sensory substitution, and 4) general balance/gait exercises to improve functioning during activities of daily living and reduce falling risk. Additional general conditioning exercises may be of benefit., * Recommend further consultation with Primary Care Provider. Consider further investigation in to cardiovascular/neurologic causes for symptoms. * Consider referral to neurology for further investigation of patient's symptoms. The results and recommendations were explained to Dorie Root and she expressed understanding of the information. History Present Illness SUMMARY OF PAST MEDICAL HISTORY: -dizzy spells onset April 2006; whole room moving -chiari malformation? -blurriness from bilateral eyes -headaches stabbing or aching sensation -head pain when she performs valsalva maneuver to the occipital region of her scalp CHIEF COMPLAINT: Imbalance, unsteadiness Based on review of the past medical history and chief complaint, the following clinical questions were explored during today's appointment: Are patient's symptoms consistent with chiari malformation? Are there other vestibular contriutors to symptoms? Plan for today's objective vestibular testing based on these clinical questions: Videonystagmography (VNG), Video Head Impulse Test (VHIT), and Rotational Chair Medical History There is no problem list on file for this patient. Medications: Current Outpatient Medications on File Prior to Visit Medication Sig FOSAMAX 70 MG TAB weekly ESTRACE 1 MG TAB weekly ALBUTEROL 90 MCG/ACTUATION AEROSOL INHALER as needed No current facility-administered medications on file prior to visit. Current medications with potential vestibular/balance side effects include: none Family/Social History No family history on file. Family history of otologic or neurologic disorders: No Social History Tobacco Use Smoking status: Never Physical/Vestibular Evaluation GENERAL: Cognitive Status: Alert, Oriented, and Cooperative EARS: Right ear: Eardrum visible and Non-occluding cerumen Left ear: Eardrum visible and Non-occluding cerumen EYES/OCULOMOTOR: Extra-ocular range of motion (CN III, IV, ): normal. Conjugate eye movements: Yes Smooth pursuit (horizontal and vertical): normal Saccades (horizontal, vertical, oblique): normal Cover uncover test: normal Kdadb-lecwl-diyqo test: normal Convergence test: normal NECK: Cervical rotation right restrictions: none. Reported pain: none Cervical rotation left restrictions: none. Reported pain: none Cervical extension restrictions: none. Reported pain: none Cervical flexion restrictions: none. Reported pain: none VESTIBULAR: Head impulses of semi-circular canals: normal Ocular counter roll: absent to the right? GAIT AND BALANCE: Observation of gait and transfer: Normal Modified Dynamic Gait Index (mDGI): Deferred Modified Clinical Test of Sensory Interaction on Balance (MCTSIB): abnormal postural control. Eyes open, firm surface: Fall Reactions: 3/3 (backward fall reactions) Deferred further testing for patient's safety. OBJECTIVE VESTIBULAR MEASURES: Videonystagmography Examination (VNG): CPT codes: 60375, 24769, 76337 Description of Procedure: objective assessment of peripheral (e.g., low frequency horizontal canal VOR function), status of compensation, Benign Paroxysmal Positional Vertigo (BPPV), and central vestibulo-ocular pathway (oculomotor examination). Procedure time: 30-45 minutes. Note: The fast component (direction) of all nystagmus is reported from the patient's perspective. Calibration procedure: unremarkable Saccade Performance test (pseudo-random presentation of a laser target; 5 - 50 deg horizontal steps): Latency values: normal Accuracy values: normal Peak Velocity values: normal Reported symptoms: none Pursuit Tracking test (sinusoidal presentation of a laser target; .1-.6 Hz, 10-60 deg/sec): Gain values: normal. Evidence of saccadic pursuit: No. Reported symptoms: none Spontaneous & Gaze-Evoked Nystagmus test: Note: some visual searching observed during fixation denied conditions. Nystagmus center gaze with fixation: none. Temporal profile: n/a. Saccadic intrusions/oscillations: none. Symptoms: none. Nystagmus center gaze without fixation: none. Temporal profile: n/a. Saccadic intrusions/oscillations: none. Symptoms: none. Nystagmus right gaze with fixation: none.Temporal profile: n/a. Saccadic intrusions/oscillations: none. Symptoms: none. Nystagmus right gaze without fixation: none. Temporal profile: n/a. Saccadic intrusions/oscillations: none. Symptoms: none. Nystagmus left gaze with fixation: none.Temporal profile: n/a. Saccadic intrusions/oscillations: none. Symptoms: none. Nystagmus left gaze without fixation: fine left-beating. Temporal profile: intermittent. Saccadic intrusions/oscillations: none. Symptoms: none. Nystagmus up gaze with fixation: none. Temporal profile: n/a. Saccadic intrusions/oscillations: none. Symptoms: none. Nystagmus up gaze without fixation: none. Temporal profile: n/a. Saccadic intrusions/oscillations: none. Symptoms: none. Nystagmus down gaze with fixation: none. Temporal profile: n/a. Saccadic intrusions/oscillations: none. Symptoms: none. Nystagmus down gaze without fixation: none. Temporal profile: n/a. Saccadic intrusions/oscillations: none. Symptoms: none. Note: remainder of testing completed without fixation unless otherwise specified. Head shaking test: Nystagmus post-horizontal head shake: none. Temporal profile: n/a. Symptoms: none. Nystagmus post-vertical head shake: none. Temporal profile: n/a. Symptoms: none. Skull vibration-induced nystagmus test (sitting, mastoid vibration right, mastoid vibration left): Nystagmus mastoid vibration right: 3 d/s left-beating. Temporal profile: continuous. Symptoms: none. Nystagmus mastoid vibration left: 4 d/s right-beating. Temporal profile: intermittent. Symptoms: none. Neck torsion test: Nystagmus neck torsion right: none. Temporal profile: n/a. Symptoms: none. Nystagmus neck torsion left: 4 d/s left-beating. Temporal profile: intermittent. Symptoms: none. Vertical Semi-circular Canal BPPV Nystagmus tests: Nystagmus Elijah-Hallpike right ear down position: 3 d/s right-beating. Temporal profile: intermittent. Symptoms: none. Nystagmus Aspen-Hallpike right ear return to sit position: none Temporal profile: intermittent. Symptoms: none. Nystagmus Elijah-Hallpike left ear down position: 3 d/s left-beating. Temporal profile: intermittent. Symptoms: none. Nystagmus Elijah-Hallpike left ear return to sit position: none. Temporal profile: n/a. Symptoms: none. Horizontal Semi-circular Canal BPPV and Positional Nystagmus tests: Nystagmus head center supine: 3 d/s right-beating.Temporal profile: continuous. Symptoms: none. Nystagmus head (roll) right: none. Temporal profile: intermittent. Symptoms: none. Nystagmus head (roll) left: none. Temporal profile: n/a. Symptoms: none. Video Head Impulse Test (VHIT): CPT code: 14026 Description of Procedure: assessment of the angular vestibulo-ocular reflex (VOR) of all six semicircular canals. During vHIT, patients wear infrared goggles and their head is quickly moved in the plane of each semicircular canal. Measurements of VOR gain and corrective saccades are used to determine semicircular canal paresis. Procedure time: 20 minutes. Calibration procedure: head movement calibration performed three times due to patient assistance with head movements. Camera placement over the right eye. Lateral Canal VHIT: Normal. Results are not consistent with lateral semicircular canal/VOR pathway involvement in both ears. Right lateral: gain: 1.07, no saccades Left lateral: gain: 1.04, no saccades (Note: abnormal gain < 0.80) Vertical Canal VHIT: High gain values noted for vertical canal impulses, which may be due to camera mass over the right eye, goggle fit, and/or a calibration error. No evidence of corrective saccades. Rotational Chair: CPT code 29480 Description of Procedure: objective assessment of peripheral vestibular system function, in particular bilateral peripheral function (lateral canal VOR function in low-mid frequencies). Procedure time: 20 minutes. Calibration procedure: unremarkable. Sinusoidal Harmonic Acceleration (SHA) testing (at 0.01, 0.08, and 0.32 Hz): Gain values: Normal Phase values: Normal Symmetry values: Normal Suppression of vestibulo-ocular reflex (SHA at 0.04 Hz) with visual input: normal. It was my pleasure to evaluate Dorie Root. If you have any questions regarding this information, please contact me at [phone]. MASOOD Lorenzo Doctor of Audiology (AuD) Technical Artist This appointment was conducted under the direct supervision of Lauren Mccauley, PhD CCC-A I verify that I have reviewed the history, test results, and interpretation for this patient. Lauren Mccauley, PhD CCC-A Vestibular Ingot Stripper Director, Vestibular and Balance Disorders Program [facility] [place] copy to: Juliano Sharma MD [address] [place] [address] documented in this encounter [facility] Evaluation + Plan note Future Appointments Appointment Date:07/29/2023 10:40:00 AM Scheduled Provider: [facility] Appointment Type:FM Nurse Visit Appointment Date:08/12/2023 01:20:00 PM Scheduled Provider:Srinivasan Lezama MD Location:[facility] Appointment Type:FM Open Appointment Date:07/23/2024 11:00:00 AM Scheduled Provider: Location:[facility] Appointment Type: Medicare Wellness Subsequent [facility] Evaluation + Plan note Future Appointments Appointment Date:07/31/2023 02:00:00 PM Scheduled Provider: Location:[facility] Appointment Type: Nurse Visit Appointment Date:08/12/2023 01:20:00 PM Scheduled Provider:Srinivasan Lezama MD Location:[facility] Appointment Type:FM Open Appointment Date:07/23/2024 11:00:00 AM Scheduled [facility]: [facility] Type:FM Medicare Wellness Subsequent [facility] Evaluation note Diagnosis Dizziness- Primary Dizziness and giddiness [facility] Diagnosis Dizziness- Primary Dizziness and giddiness Head pains documented in this encounter [facility] note* Diagnosis Ataxia following cerebral infarction- Primary Ataxia, late effect of cerebrovascular disease Dizziness and giddiness Vertigo Dizziness and giddiness [facility] Diagnosis Chest pain, unspecified type- Primary SOB (shortness of breath) Shortness of breath documented in this encounter [facility] note* Diagnosis Dizziness and giddiness- Primary Vertigo Dizziness and giddiness [facility] Narrative No data available for this section [facility] No data available for this section [facility] No data available for this section [facility] (narrative)* Outpatient Procedure (Routine) - Authorized Specialty Diagnoses / Procedures Referred By Linda villa Referred To [facility] Diagnoses Ataxia following cerebral infarction Dizziness and giddiness Procedures US CAROTID ARTERIES ELSI VAS LAB DUPLEX SCAN EXTRACRANIAL [place] [address] [place] [address] [facility] [place] [address] [place] [address] Referral ID Status Reason Start Date Expiration Date Visits Requested Visits Authorized [id number] Authorized Auto-Generat ed Referral 12/23/2022 12/23/2023 1 1 * MRI/CT (Routine) - Authorized Specialty Diagnoses / Procedures Referred By Linda villa Referred To Contact MR IMAGING Diagnoses Ataxia following cerebral infarction Vertigo Procedures MRI BRAIN WO IVCON MRI BRAIN BRAIN STEM W/[place] [address] [place] [address] Mr Imaging Referral ID Status Reason Start Date Expiration Date Visits Requested Visits Authorized [id number] Authorized Auto-Generat ed Referral 12/23/2022 01/22/2024 1 1 [facility] for referral (narrative)* Diagnostic Procedure Only (Routine) - Authorized Specialty Diagnoses / Procedures Referred By Linda villa Referred To Contact [facility] Diagnoses Chest pain, unspecified type Procedures NM CARDIAC PERF STRESS/PHARM MYOCARDIAL [place]PECT [place] [address] [place] [address] [facility] [address] [place] [address] Referral ID Status Reason Start Date Expiration Date Visits Requested Visits Authorized [id number] Authorized Auto-Generat ed Referral 04/28/2023 05/27/2024 1 1 * Outpatient Procedure (Routine) - Authorized Specialty Diagnoses / Procedures Referred By Contac t Referred To Contact [facility] [place] Diagnoses Chest pain, unspecified type Procedures ECHO ECHO TTHRC R-T 2D W/WOM-MODE COMPL SPEC&[place] [address] [place] [address] [facility] [address] [place] [address] Referral ID Status Reason Start Date Expiration Date Visits Requested Visits Authorized [id number] Authorized Auto-Generat ed Referral 04/28/2023 04/27/2024 1 1 * Outpatient Procedure (Routine) - Closed Specialty Diagnoses / Procedures Referred By Contac t Referred To Contact [facility] Diagnoses Chest pain, unspecified type Procedures ECG COMPLETE ECG ROUTINE ECG W/LEAST 12 LDS W/I&[place] [address] [place] [address] [facility] [address] [place] [address] Referral ID Status Reason Start Date Expiration Date V isits Requested Visits Authorized [id number] Closed Auto-Generate d Referral 04/28/2023 04/27/2024 1 1 [facility] Summary Purpose Family History No Family History Records FoundNo Family History Records FoundNo Family History Records FoundNo Family History Records Found No data available for this section No data available for this section No Family History Records Found Advance Directives No Advanced Directives Records FoundNo Advanced Directives Records FoundNo Advanced Directives Records FoundNo Advanced Directives Records FoundNo Advanced Directives Records Found Reason for Referral Specialty Diagnoses / Procedures Referred By Contac t Referred To Contact Neurology Diagnoses Dizziness Procedures CONSULT TO NEUROLOGY OFFICE/OUTPATIENT [facility] 60-74 MINUTES Hema Good MD [address] [place] [address] Referral ID Status Reason Start Date Expiration Date Visits Requested Visits Authorized [id number] Pending Review PCP Requested Referral 11/20/2022 11/20/2023 1 1 Additional Source Comments INFORMATION SOURCE (unrecogn ized section and content) DATE CREATED AUTHOR 11/18/2021 [facility] DATE CREATED AUTHOR AUTHOR'S ORGANIZ ATION 02/08/2023 [facility] DATE CREATED AUTHOR AUTHOR'S ORGANIZ ATION 06/18/2023 [facility] DATE CREATED AUTHOR AUTHOR'S ORGANIZ ATION 07/13/2023 [facility] DATE CREATED AUTHOR AUTHOR'S ORGANIZ ATION 08/20/2023 [facility] Source Comments (unrecognize d section and content) In the event this informatio n is protected by the Federal Confidentiality of Alcohol and Drug Abuse Patient Records regulations: The Federal rules restrict any use of the information to criminally investigate or prosecute any alcohol or drug abuse patient.[facility] the event this information is protected by the Federal Confidentiality of Alcohol and Drug Abuse Patient Records regulations: The Federal rules restrict any use of the information to criminally investigate or prosecute any alcohol or drug abuse patient.[facility] the event this information is protected by the Federal Confidentiality of Alcohol and Drug Abuse Patient Records regulations: The Federal rules restrict any use of the information to criminally investigate or prosecute any alcohol or drug abuse patient.[facility] Hospital[facility] the event this information is protected by the Federal Confidentiality of Alcohol and Drug Abuse Patient Records regulations: The Federal rules restrict any use of the information to criminally investigate or prosecute any alcohol or drug abuse patient.[facility] Hospital[facility] the event this information is protected by the Federal Confidentiality of Alcohol and Drug Abuse Patient Records regulations: The Federal rules restrict any use of the information to criminally investigate or prosecute any alcohol or drug abuse patient.[facility] the event this information is protected by the Federal Confidentiality of Alcohol and Drug Abuse Patient Records regulations: The Federal rules restrict any use of the information to criminally investigate or prosecute any alcohol or drug abuse patient.[facility] the event this information is protected by the Federal Confidentiality of Alcohol and Drug Abuse Patient Records regulations: The Federal rules restrict any use of the information to criminally investigate or prosecute any alcohol or drug abuse patient.[facility] Teams (unrecognized sec tion and content) 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 Relationship Specialty Start Date End Date Juliano Sharma MD [address] [id number] PCP - General 06/02/06 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 Relationship Specialty Start Date End Date Juliano Sharma MD [address] [place] [id number] PCP - General 06/02/06 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 Relationship Specialty Start Date End Date Juliano Sharma MD [address] [place] [id number] PCP - General 06/02/06 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 Relationship Specialty Start Date End Date Srinivasan Lezama MD [address] [place] [address] PCP - General Family Medicine 03/24/23 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 Relationship Specialty Start Date End Date Srinivasan Lezama MD [address] [place] [address] PCP - General Family Medicine 03/24/23 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 Relationship Specialty Start Date End Date Juliano Sharma MD [address] [place], [place] [id number] PCP - General 06/02/06 03/23/23 Reason for Visit (unrecogniz ed section and content) Reason Comments Dizziness Reason Comments New Patient Evaluation Reason Comments CARD New Patient Consult Reason Comments Request Outside Medical Records Reason Comments Established Patient Specialty Diagnoses / Procedures Referred By Contkeith t Referred To Contact MR IMAGING Diagnoses Ataxia following cerebral infarction Vertigo Procedures MRI BRAIN WO IVCON MRI BRAIN BRAIN STEM W/[place] [address] [place] [address] [place] [address] Referral ID Status Reason Start Date Expiration Date V isits Requested Visits Authorized [id number] Closed Auto-Generate d Referral 12/23/2022 01/22/2024 1 1 FOR RECORDS PERTAINING TO PATIENTS WHO ARE OR HAVE BEEN ENROLLED IN A CHEMICAL DEPENDENCY/SUBSTANCEABUSE PROGRAM, SOME INFORMATION MAY BE OMITTED. This clinical summary was aggregated from multiple sources. Caution should be exercised in using it in the provision of clinical care. This summary normalizes information from multiple sources, and as a consequence, information in this document may materially change the coding, format and clinical context of patient data. In addition, data may be omitted in some cases. CLINICAL DECISIONS SHOULD BE BASED ON THE PRIMARY CLINICAL RECORDS. [employer] provides no warranty or guarantee of the accuracy or completeness of information in this document.
--- NOTE | 2023-09-03 01:32 | CT_ITS ---
The [address] [address] Patient Name: JASIEL ROOT MRN: [id number] date: 1945 Sex: F Assigned Patient Location: ER Current Patient Location: ER Accession/Order Number: [id number] Exam Date: 09/03/2023 01:55 Report Date: 09/03/2023 02:17 At the request of: YOJANA MARKER Procedure: CT head/brain wo con INDICATION: 78 years old; Female. Syncope. TECHNIQUE: CT Head (ax/cor/sag reformats). Ionizing radiation dose reduced via iterative reconstruction/FBP blend and body size kV/mA adjustment. Comparison: Head CT dated 03/19/2023. FINDINGS: POSTOPERATIVE CHANGES: None. BRAIN PARENCHYMA: No focal lesions. No mass effect. No midline shift or herniation. No intraparenchymal or extra-axial hemorrhage. Normal romo/white differentiation. VENTRICLES/EXTRA-AXIAL SPACES: Enlarged, consistent with atrophy. The ventricular system is enlarged out of proportion the size the cortical sulci. This is unchanged from the prior study. The presence of atrophy +/- communicating hydrocephalus is not excluded. SINUSES/MASTOIDS: The visualized sinuses are clear. Maxillary sinuses are not entirely visible in this routine CT the head. Mastoids and middle ears are clear. MSK: No displaced or depressed calvarial fracture. OTHER: No hyperdense intraluminal thrombus. CT/CT head/brain wo con IMPRESSION: 1. No acute intracranial abnormality. No hemorrhage or mass effect. 2. Atrophy +/- communicating hydrocephalus. The appearance of ventricles is unchanged as compared to the prior study. Electronically authenticated by: DOLORES LAMBERT Date: 09/03/2023 02:17
[2023-09-03] MEDS: 0.9 % SODIUM CHLORIDE 1,000 ML 1000 ML IV (01:44)
[2023-09-03 01:51] LABS: Basophils Absolute Auto 0.1 10^3/uL (0.0-0.1); Basophils Percent Auto 0.8 % (0.2-2.0); Eosinophils Absolute Auto 0.2 10^3/uL (0.0-0.7); Eosinophils Percent Auto 2.6 % (0.9-7.0); Hematocrit 44.1 % (36.0-48.0); Hemoglobin 14.5 g/dL (12.0-16.0); Immature Granulocytes Abs Auto 0.03 10^3/uL (0.00-0.03); Immature Granulocytes Pct Auto 0.3 % (0.0-0.5); Lymphocytes Absolute Auto 1.8 10^3/uL (1.2-3.8); Lymphocytes Percent Auto 19.5 % (20.5-60.0); Mean Corpuscular HGB Conc 32.9 g/dL (29.9-35.2); Mean Corpuscular Hemoglobin 30.4 pg (26.7-34.0); Mean Corpuscular Volume 92.5 fL (81.0-99.0); Mean Platelet Volume 9.8 fL (9.5-13.5); Monocytes Absolute Auto 0.9 10^3/uL (0.3-0.8); Monocytes Percent Auto 9.7 % (1.7-12.0); Neutrophils Absolute Auto 6.1 10^3/uL (1.4-6.5); Neutrophils Percent Auto 67.1 % (43.0-75.0); Platelet Count 321 10^3/uL (150-450); Red Blood Count 4.77 10^6/uL (4.20-5.40); Red Cell Distribution Width 12.4 % (11.0-15.0); White Blood Count 9.1 10^3/uL (4.0-11.0)
[2023-09-03 02:10] LABS: D Dimer 1.38 mg/L FEU (<=0.59)
[2023-09-03 02:17] LABS: Alanine Aminotransferase 28 U/L (14-59); Albumin Level 3.6 g/dL (3.4-5.0); Alkaline Phosphatase 80 U/L (46-116); Anion Gap 14.5; Aspartate Amino Transferase 19 U/L (15-37); BUN Creatinine Ratio 16.2; Bilirubin Total 0.4 mg/dL (0.2-1.0); Calcium 9.7 mg/dL (8.5-10.1); Carbon Dioxide 27.7 mmol/L (21.0-32.0); Chloride 103 mmol/L (98-107); Estimated GFR (African America 54 (>=60); Estimated GFR (Non-African Ame 45 (>=60); Globulin 3.6 g/dL; Glucose 131 mg/dL (74-106); Potassium 3.2 mmol/L (3.5-5.1); Sodium 142 mmol/L (136-145); Total Protein 7.2 g/dL (6.4-8.2); Troponin I High Sensitivity 28.2 pg/mL (4.0-51.3)
[2023-09-03 02:18] LABS: Lactate/Lactic Acid 2.1 mmol/L (0.4-2.0)
--- NOTE | 2023-09-03 02:47 | CT_ITS ---
[address] [address] Patient Name: JASIEL ROOT MRN: [id number] date: 1945 Sex: F Assigned Patient Location: ER Current Patient Location: ER Accession/Order Number: [id number] Exam Date: 09/03/2023 03:11 Report Date: 09/03/2023 04:40 At the request of: YOJANA MARKER Procedure: CT angio chest EXAM: CT angio chest HISTORY: Syncope; elevated d dimer. COMPARISON: None. TECHNIQUE: Routine CTA chest with intravenous contrast. FINDINGS: There is contrast within the pulmonary arteries. There is no pulmonary embolus. The pulmonary trunk is normal size. The heart size is upper limits normal. There is no pericardial fluid or thickening. There is mild atheromatous plaque along the thoracic and proximal abdominal aorta. There is mild atheromatous plaque at the origin of the left subclavian artery. There is no aneurysm or dissection of the thoracic aorta. There is no consolidation or infiltrate. There is no pleural effusion. There is moderate irregular pleural-based parenchymal scarring at both lung apices. There is a 0.8 cm noncalcified pleural-based nodule lateral right upper chest (series 4 image 29) which may be associated with the pleural parenchymal scarring however a short interval follow-up CT examination is recommended to confirm stability. There is no pneumothorax. There are no pathologically enlarged axillary, mediastinal or hilar lymph nodes. The trachea is unremarkable. There is mild diffuse circumferential thickening of the esophageal wall which can be associated with an esophagitis or sequelae of chronic gastroesophageal reflux. The thyroid gland is unremarkable. There are calcified granuloma scattered within the spleen. There is retained lobulation along the contour of both kidneys. There is mild S-shaped scoliosis of the thoracic spine. There are mild discogenic degenerative changes at numerous levels along the spine. CT/CT angio chest IMPRESSION: There is no pulmonary embolus. There is mild atherosclerotic plaque along the thoracic and proximal abdominal aorta. There is no aneurysm or dissection of the thoracic aorta. There is no consolidation or infiltrates. There is moderate irregular pleural-based parenchymal scarring at both lung apices. There is a 0.8 cm noncalcified pleural-based nodule lateral right upper chest (series 4 image 29) which may be associated with the pleural parenchymal scarring however a CT examination of the chest in 3 months is recommended to confirm stability. There are no pathologically enlarged lymph nodes. Mild diffuse circumferential thickening of the esophageal wall which can be associated with an esophagitis or sequelae of chronic gastroesophageal reflux. Few additional findings as described in the body the report. Electronically authenticated by: ASTRID GARRETT Date: 09/03/2023 04:40
[2023-09-03 04:18] LABS: Lactate/Lactic Acid 1.3 mmol/L (0.4-2.0); Troponin I High Sensitivity 27.4 pg/mL (4.0-51.3)
[2023-09-03] MEDS: POTASSIUM CHLORIDE 10 MEQ ER TABLET 20 MEQ PO (04:31)
[2023-09-03 04:42] LABS: Bilirubin Urine NEGATIVE (NEGATIVE); Blood Urine NEGATIVE (NEGATIVE); Clarity Urine CLEAR (CLEAR); Color Urine LT. YELLOW (YELLOW); Glucose Urine UA NEGATIVE (NEGATIVE); Ketones Urine NEGATIVE (NEGATIVE); Leukocyte Esterase Urine SMALL (NEGATIVE); Nitrite Urine NEGATIVE (NEGATIVE); Protein Urine NEGATIVE (NEG/TRACE); Specific Gravity Urine <=1.005 (1.005-1.025); Urobilinogen Urine 0.2 EU/dL (0.2-1.0); pH Urine 5.5 (5.0-9.0)
[2023-09-03 04:49] LABS: Bacteria Urine NONE SEEN #/HPF (NONE SEEN); Cast Seen? SEEN #/LPF (NONE SEEN); Crystals Seen? None Seen #/HPF (None Seen); Hyaline Casts Urine FEW; Mucus Urine NONE SEEN (NONE SEEN); RBC Urine 0-2 #/HPF (0-2); Squamous Epithelial Cell Urine RARE #/LPF (NONE/RARE); Transitional Epi Cells Urine RARE #/LPF (NONE SEEN); WBC Urine 0-2 #/HPF (NONE SEEN)
[2023-09-03] MEDS: 0.9 % SODIUM CHLORIDE 1,000 ML 125 ML IV (05:38)
--- OUTSIDE RECORDS SUMMARY | 2023-09-03 07:37 | XMS_ITS | CCD ---
Author Name Unknown Address [address] [place] [address] Organization [facility] Care Team Providers Care Echo Vascular Tech Name Role Phone Juliano Sharma MD Primary Care Provider [phone] SHARMA ., DR JULIANO Youngblood Primary Care [...] Attending Unavailable MISC, DR SOLER Admitting Unavailable MENO, DR AN [employer] Unavailable SHARMA ., [...] Unavailable Srinivasan Lezama MD Primary Care Provider [phone] RACHAEL CHANEY Referring Unavailable SRINIVASAN LEZAMA Primary [...] Unavailable SESE, ISAAC T Referring Unavailable SHARMAJULIANO LONDONDERRY Primary Care Unavailable SESE, ISAAC T Attending Unavailable SHARMA JULIANO LONDONDERRY Primary Care Unavailable LAUREN MCCAULEY Attending Unavailable SHARMA, JULIANO LONDONDERRY Primary Care Unavailable WATTAR, YAIR R Attending Unavailable ROSS, SRINIVASAN E Primary Care Unavailable SESE, ISAAC T Attending Unavailable SESE, ISAAC T Referring Unavailable ROSS, SRINIVASAN E Primary Care Unavailable Edith DOS SANTOS, Juliano meera Primary Care Provider [phone] HUYEN ISAAC T Referring Unavailable SHARMA, JULIANO DAY Primary Care Unavailable WATTAR, YAIR R Referring Unavailable LISE, SRINIVASAN E Primary Care Unavailable Lise Srinivasan E. Primary Care Physician [phone] Roxane Heller L Admitting Unavailable Arron, Roxane L Attending [...] Medication Allergies] Propensity to adverse reactions (disorder) [facility] Repository Medications Current Medications Medication Drug [...] Daily, # 90 cap(s), Refills(s) 1, Pharmacy: [facility]/pharmacy #[id number], 155, cm, 03/25/23 8:03:00 EDT, [...] Comment on above: Take 1 capsule by [facility] daily at bedtime. perflutren lipid microspheres 1.3 [...] INHALE 2 PUFFS BY MOUTH TWICE DAILY, [facility], 155, cm, 04/02/23 9:19:00 EDT, Height/Length Dosing, [...] 5 unt oral capsule (3 sources) Coenzyme Z06-Meqfpgw E 100-5 mg-unit cap 2 gels Orally [...] 05-07-2022 Episodic Other aftercare (1 source) Other residential (current) drug therapy; 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: [OTH APPLICATION SYSTEMS ARCHITECT CURRENT DRUG THERAPY] Onset: 05-10-2022 Episodic Other [...] cardiovascular disease) (I25.10: Atherosclerotic heart disease of [place] coronary artery without angina pectoris) The patient [...] with voice recognition artificial intelligence software, specifically [employer], [employer] and or [employer]. Substitutions may have occurred due to the inherent limitations of voice recognition and artificial intelligence software. Documentation services were performed after patient or guardian consented to allow [employer] to record this visit. JAIRON housing development specialist and provider reviewed before signing. JAIRON: Laina Tucker. Follow-up No qualifying data available Problem List/Past Medical History O (more content not included)... Normal [facility] Comment on above: Result Comment: Elec [...] With: Lise DOS SANTOS, Srinivasan Milligan Where: [facility] Normal [address] [place] [address]- \.br\ Medications\.br\ What How Much When Why Instructions\.br\ New hydrOXYzine (hydrOXYzine hydrochloride 10 mg Tab) 1 Tablets By Mouth 4 times a day as needed for for anxiety Pickup at [facility]/pharmacy #[id number]\.br\ Unchanged albuterol (Albuterol (Eqv-ProAir HFA) 90 mcg/ [...] \.br\ Pharmacy Information\.br\ [id number]: [address], [place] [id number] [phone]\.br\ Allergies\.br\ No Known Allergies\.br\ No Known Medication [...] for choosing us for your care.\.br\ \.br\ [facility] Pre-Visit Planningon 023 Pre-Visit Planning - From: Gita Contreras To: Lise DOS SANTOS, Srinivasan Milligan; Sent: 08/08/2023 12:04:31 EST Subject: Pre-Visit Planning Due Date/Time: 08/08/2023 12:04:00 EST Caller Name: DORIE ROOT; Caller Number: H Ny Dr. Lezama. During a pre-visit planning chart [...] feel free to contact me at extension [phone]. Thank you and have a great weekend! Gita Contreras LPN - From: Srinivasan Lezama MD To: Gita Contreras; Sent: 08/11/2023 08:51:48 EST Subject: RE: Pre-Visit Planning Caller Name: DORIE ROOT; Caller Number: H - Please add PAD Normal [address] [place] [address] Dexa Scanson 08-04-2023 Dexa Scans [id number] #1.00TIFF Normal [facility] Dexa Scans [id number] #1.00TIFF Normal [facility] Ambulatory Visit Summaryon 1 09-30-2022 Ambulatory [...] With: Lise DOS SANTOS, Srinivasan Milligan Where: [facility] [address] [id number] \.br\ Medications\.br\ What How Much When Why [...] for choosing us for your care.\.br\ \.br\ [facility] CMPon 07-31-2023 Albumin [Mass/Vol] 4.2 g/dL Normal 3.3-5.0 [facility] Comment on above: Performed By: #### 1 [id number], [id number] ####[facility] [address] [place] [address] Albumin/Globulin (S) [Mass conc ratio] 1.4 Normal 1.1-2.2 [facility] Comment on above: Performed By: #### 1 [id number], 0325984 ####[facility] [address] [place] [address] ALP [Catalytic activity/Vol] 63 Int._Unit/L Normal 21-98 [facility] Comment on above: Performed By: #### 1 [id number], 6840196 ####[facility] [address] [place] [address] ALT No additional P-5'-P [Catalytic activity/Vol] 23 Int._Unit/L Normal 6-46 [facility] Comment on above: Performed By: #### 1 [id number], 3482005 ####[facility] [address] [place] [address] Anion gap [Moles/Vol] 12 mmol/L Normal 6-16 [facility] Comment on above: Performed By: #### 1 0737909, 9611052 ####[facility] [address] [place] [address] AST [Catalytic activity/Vol] 31 Int._Unit/L Normal 5-43 [facility] Comment on above: Performed By: #### 1 2667932, 4343047 ####[facility] [address] [place] [address] Bilirubin [Mass/Vol] 0.4 mg/dL Normal 0.0-1.1 [facility] Comment on above: Performed By: #### 1 7529388, 6254521 ####[facility] [address] [place] [address] Calcium [Mass/Vol] 9.5 mg/dL Normal 8.9-11.1 [facility] Comment on above: Performed By: #### 1 4095498, 7842573 ####[facility] [address] [place] [address] Chloride [Moles/Vol] 102 mmol/L Normal 101-111 [facility] Comment on above: Performed By: #### 1 8411891, 2733671 ####[facility] [address] [place] [place] [address] CO2 [Moles/Vol] 24 mmol/L Normal 21-31 [facility] Comment on above: Performed By: #### 1 6322788, 7567764 ####[facility] [address] [place] [place] [address] Creatinine [Mass/Vol] 0.8 mg/dL Normal 0.5-1.3 [facility] Comment on above: Performed By: #### 1 7830960, 0894774 ####[facility] [address] [place] [address] Globulin (S) [Mass/Vol] 2.9 g/dL Normal 1.4-4.0 [facility] Comment on above: Performed By: #### 1 4538044, 9931178 ####[facility] [address] [place] [address] Glucose [Mass/Vol] 142 mg/dL Normal 55-199 [facility] Comment on above: Result Comment: If t his glucose result represents a fasting glucose, interpretation should refer to the following reference range: 55-99 mg/dL Performed By: #### 1 4022701, 9033655 ####[facility] [address] [place] [address] Potassium [Moles/Vol] 3.1 mmol/L Low 3.5-5.3 [facility] Comment on above: Performed By: #### 1 1837122, 5210580 ####[facility] [address] [place] [address] Protein [Mass/Vol] 7.1 g/dL Normal 6.0-7.8 [facility] Comment on above: Performed By: #### 1 3801982, 5223779 ####[facility] [address] [place] [address] Sodium [Moles/Vol] 135 mmol/L Normal 135-145 [facility] Comment on above: Performed By: #### 1 1626508, 3967417 ####[facility] [address] [place] [address] Urea nitrogen [Mass/Vol] 17 mg/dL Normal 5-21 [facility] Comment on above: Performed By: #### 1 1558984, 5053014 ####[facility] [address] [place] [address] Urea nitrogen/Creatinine [Mass ratio] 21 No Units High 10-20 [facility] Comment on above: Performed By: #### 1 8860329, 4508405 ####[facility] [address] [place] [address] Nurse Consultation Noteon Nurse Consultation Note Reason [...] influenza virus vaccine, inactivated 05/31/2015 Recorded Normal [facility] eGFRon 07-31-2023 GFR/1.73 sq M.predicted among non-blacks MDRD (S/P/Bld) [Vol rate/Area] 74 mL/min/1.73 m2 Normal >=59 [facility] Comment on above: Order Comment: Order added by Discern Expert. Result Comment: Audit Partner chelo kidney disease could be indicated at eGFR's of less than 60 mL/min/1.73m2. Kidney failure is indicated at less than 15 mL/min/1.73m2. Performed By: #### 1 4370735, 6859899 ####[facility] [address] [place] [address] Screenson 07-25-2023 Screens [id number] #1.00TIFF Normal [facility] Ambulatory Visit Summaryon 1 09-22-2022 Ambulatory [...] Appointments Friday 10:40 AM EST With: Where: [facility] Invalid Interpretation Code [address] [place] [address]- \.br\ Friday 11:00 AM EST \.br\ With:\.br\ Where: [facility] Ambulatory Visit Summary DORIE ROOT [...] PM EST With: Srinivasan Lezama MD Where: [facility] Normal [address] [place] [address]- \.br\ Medications\.br\ What How Much When Why [...] care provider if you should take an vmgc-aik-mqopxdw probiotic to help restore healthy bacteria in [...] worse:\.br\ ? \.br\ Fatty foods, such as citizen of [place] fries.\.br\ ? \.br\ Foods that contain gluten, [...] Functional Gastrointestinal Disorders: [email or web address]\.br\ ? \.br\ National [place] of Diabetes and Digestive and Kidney Diseases: [...] provider.\.br\ Document Revised: 07/30/2022 Document Reviewed: 07/30/2022 [employer] Patient Education ? 2022 [employer].br\ \.br\ [facility] Family Medicine Office/Clini c Noteon 07-23-2023 [...] of clutter to prevent tripping and/or falling. [place] Advance Directives reviewed, patient has copy at [...] scheduled: 07/29/2023 Will have labs completed with [facility]. Colonoscopy up to date, last completed 10/01/2021. [...] cardiovascular disease) (I25.10: Atherosclerotic heart disease of [place] coronary artery without angina pectoris) Patient is taking medications as prescribed. Does not follow with cardiology. Denies concerns with SOB, chest pain or tightness. R (more content not included)... Normal [facility] Comment on above: Result Comment: Elec [...] care provider if you should take an iqmt-tha-vilxurv probiotic to help restore healthy bacteria in [...] symptoms worse: ? Fatty foods, such as citizen of [place] fries. ? Foods that contain gluten, such [...] for Functional Gastrointestinal Disorders: [email or web address] ? National [place] of Diabetes and Digestive and Kidney Diseases: [...] provider. Document Revised: 07/30/2022 Document Reviewed: 07/30/2022 [employer] Patient Education ? 2022 [employer] Normal [facility] Lab Reportson 07-17-2023 Lab Reports [id number] #1.00TIFF Normal [facility] Lipid 1996 panelon 3 Cholesterol [Mass/Vol] 209 mg/dL High <200 [facility] Comment on above: Order Comment: Speci men Type: BLOOD SPECIMEN Ordering Facility: [facility] Address: [address] [place] [address] Result Comment: <200 mg/dL, Desirable 200-239 mg/dL, Borderline high >239 mg/dL, High Performed By: #### 2 4331-1 #### [facility] CLIA [id number] [facility] [place] [address] [facility] Cholesterol in HDL [Mass/Vol] 76 mg/dL Normal >39 [facility] Comment on above: Order Comment: [facility] Type: BLOOD SPECIMEN Ordering Facility: [facility] Address: [address] [place] [address] Result Comment: 40-5 9 mg/dL, Acceptable >59 mg/dL, High: Negative risk factor for coronary heart disease <40 mg/dL, Low: Positive risk factor for coronary heart disease Performed By: #### 2 4331-1 #### [facility] CLIA [id number] [address] [facility] [place] [address] [facility] Cholesterol in LDL [Mass/Vol] 115 mg/dL High <100 [facility] Comment on above: Order Comment: [facility] Type: BLOOD SPECIMEN Ordering Facility: [facility] Address: [address] [place] [address] Result Comment: <100 mg/dL, Optimal 100-129 mg/dL, Near optimal/above optimal 130-159 mg/dL, Borderline high 160-189 mg/dL, High >189 mg/dL, Very high Secondary prevention optimal LDL Cholesterol levels are recommended to be < 70 mg/dL Performed By: #### 2 4331-1 #### [facility] CLIA [id number] [facility] [place] [address] [facility] Cholesterol in LDL/Cholesterol in HDL [Mass ratio] 1.51 {ratio} Normal <2.54 [facility] Comment on above: Order Comment: [facility] Type: BLOOD SPECIMEN Ordering Facility: [facility] Address: [address] [place] [address] Result Comment: Mateusz hirsch: 1. National Cholesterol Education Program ATP III Guideline At-A-Glance Quick Desk Reference: National Heart, Lung, and Blood [place]. National Institutes of Health. 2001: NIH Publication No. 01-3305. 2. An International Atherosclerosis Society position paper: global recommendations for the management of dyslipidemia: executive summary, Atherosclerosis. 2014: 232(2):410-413. Performed By: #### 2 4331-1 #### [facility] CLIA [id number] [facility] [place] [address] [place] Cholesterol in VLDL [Mass/Vol] 18 mg/dL Normal <30 [facility] Comment on above: Order Comment: Speci men Type: BLOOD SPECIMEN Ordering Facility: [facility] Address: [address] [place] [address] Performed By: #### 2 4331-1 #### [facility] CLIA [id number] [address] [facility] [place] [address] [place] Cholesterol non HDL [Mass/Vol] 133 mg/dL High <130 [facility] Comment on above: Order Comment: Speci men Type: BLOOD SPECIMEN Ordering Facility: [facility] Address: [address] [place] [address] Result Comment: <130 mg/dL, Optimal 130-159 mg/dL, Near optimal/above optimal 160-189 mg/dL, Borderline high 190-219 mg/dL, High >219 mg/dL, Very high Secondary prevention optimal non HDL Cholesterol levels are recommended to be <100 mg/dL Performed By: #### 2 4331-1 #### [facility] [place] [id number] [address] [place] [address] [facility] [place] Cholesterol.total/Ch olesterol in HDL [Mass ratio] 2.75 {ratio} Normal <5.10 [facility] Comment on above: Order Comment: Speci men Type: BLOOD SPECIMEN Ordering Facility: [facility] Address: [address] [place] [address] Performed By: #### 2 4331-1 #### [facility] CLIA [id number] [address] [facility] [place] [address] [place] FASTING TIME 15 hrs Normal [facility] Comment on above: Order Comment: Speci men Type: BLOOD SPECIMEN Ordering Facility: [facility] Address: [address] [place] [address] Performed By: #### 2 4331-1 #### [facility] CLIA [id number] [address] [facility] [place] [address] [place] Triglyceride [Mass/Vol] 92 mg/dL Normal <150 [facility] Comment on above: Order Comment: Speci men Type: BLOOD SPECIMEN Ordering Facility: [facility] Address: [address] [place] [address] Result Comment: <150 mg/dL, Normal 150-199 mg/dL, Borderline high 200-499 mg/dL, High >499 mg/dL, Very high Performed By: #### 2 4331-1 #### [facility] CLIA [id number] [address] [facility] Consultation Noteon 07-08-20 Consultation Note [id number] #1.00TIFF Normal [facility] ECG 12-Leadon 06-25-2023 ECG 12-Lead [id number] #1.00TIFF Normal [facility] Lab Reportson 06-25-2023 Lab Reports [id number] #1.00TIFF Normal [facility] Interdisciplinary Note - Soc ial Workeron 06-23-2023 Interdisciplinary Note - Vp Revenue Cycle Consult received due to patient's dx of IBS. Due to system glitch, this consult was not received until recently, although ordered 04/30/23. Chart review noted that patient has had subsequent visits with PCP in which SW needs were not identified. SW will remain available. Normal [facility] CNOVon 06-17-2023 CNOV Office Visit (VENITA) DORIE ROOT ([id number]) 1945 F Date Time Provider Department 06/17/23 11:45 AM RACHAEL CHANEY During your visit today, we recorded the following information about you: Pulse Blood pressure Weight Height 58/minute 134/66 49.9 kg 1.575 m Rachael Chaney MD 06/17/2023 12:06 PM Signed [facility] [place] Stepan Sharif Department of Cardiovascular Medicine SECTION OF REGIONAL CARDIOLOGY OUTPATIENT VISIT DATE June 17, 2023 OUTPATIENT VISIT TYPE ESTABLISHED HISTORY OF PRESENT ILLNESS: Dorie Root is a (an) 78 year old year old female who is here today for follow-up. She underwent stress nuclear test and echo. Presents with Last OV 04/28/23 Dorie Root is a 77 year old female from [place], [place] here today self referral. Has h/o [...] GUAR GUM, ORAL Take by mouth. Coenzyme E28-Plzwfvu E 100-5 mg-unit cap 2 gels Orally [...] [place] RVT (more content not included)... Normal [facility] CNOVon 06-12-2023 CNOV Office Visit (NEURAV) DORIE ROOT ([id number]) 1945 F Date Time Provider Department 06/12/23 [...] VITAMIN D3 ORAL) Take by mouth. Coenzyme T45-Cqnygld E 100-5 mg-unit cap 2 gels Orally [...] or p (more content not included)... Normal [facility] ECHOon 06-11-2023 Echocardiography Echocardiography Report: Transthoracic Echo [facility] Date of service: 06/11/2023 12:04:33 PM [employer]ARM[employer] Ordering physician: RACHAEL CHANEY Indication: Chest Pain [...] * * Final * * * CC [employer] Medical Image : [id number] Normal [facility] CARDIAC PERF STRESS/PHARM on 06-11-2023 [place] CARDIAC PERF STRESS/PHARM * * *Final Report* * * DATE OF EXAM: Jun 11 2023 2:23PM STN 0006 - NM CARDIAC PERF STRESS/PHARM / PROCEDURE REASON: Chest pain, unspecified type * * * * Physician Interpretation * * * * Stress Vp Revenue Cycle Report: [facility] Date of service: 06/11/2023 12:42:30 PM Supervising physician: Kamilla Dmaon MD PATIENT: Name: MRS. DORIE ROOT Age: [...] later. See administered radiotracer and doses below. [facility] Date of service: 06/11/2023 12:42:30 PM Ordering [...] Final * * * Stress ECG Report: [facility] Date of service: 06/11/2023 12:42:30 PM Ordering physician: RACHAEL CHANEY electronic commerce specialist: Kathy Gustafson Interpreting physician: Kamilla Damon [...] Days Resting ECG: Sinus Bradycardia and Right [place] Deviation Symptoms at rest: No symptoms Pharamcologic [...] + 2 (more content not included)... Normal [facility] Office/Clini c Noteon 05-15-2023 Family Medicine Office/Clinic Note HPI Staff Dorie is a 77 year old female presenting for ER follow up ER followup: Hospital: [facility] Visit date: 05/09/23 Symptoms the patient presented with: chest pain, SOB Symptom onset/injury onset: came on suddenly Testing Performed: chest xray, ekg, blood work New medications: no Current concerns: pt has appointment karissa in [place] [facility]. going to have a nuclear [...] day(s), # 21 tab(s), Refills(s) 0, Pharmacy: [facility]/pharmacy #[id number], 155, cm, 05/13/23 13:38:00 EDT, [...] day(s), # 21 tab(s), Refills(s) 0, Pharmacy: [facility]/pharmacy #6177, 155, cm, 05/13/23 13:38:00 EDT, Height/Length Dosing, 50.9, kg, 05/13/23 13:38:00 EDT, Weight Dosing 4. BMI 21.0-21.9, adult (Z68.21: Body mass index [BMI] 21.0-21.9, adult) - BMI education given Ordered: methylPREDNISolone, = 1 packet(s), Oral, As Directed, as directed on package labeling, X 6 day(s), # 21 tab(s), Refills(s) 0, Pharmacy: [facility]/pharmacy #[id number], 155, cm, 05/13/23 13:38:00 EDT, Height/Length Dosing, 50.9, kg, 05/13/23 13:38:00 EDT, Weight Dosing 5. Non-smoker (Z78.9: Other specified health status) - Please continue not to smoke. Ordered: methylPREDNISolone, = 1 packet(s), Oral, As Directed, as directed on package labeling, X 6 day(s), # 21 tab(s), Refills(s) 0, Pharmacy: [facility]/pharmacy #6177, 155, cm, 05/13/23 13:38:00 EDT, [...] 05/13/2023 Family Hist (more content not included)... [facility] Comment on above: Result Comment: Elec tronically Signed By: Lise DOS SANTOS, Srinivasan Milligan\.br\Date and Time Signed: 05/15/23 13:28 EDT ED Note-Physicianon 05-14-20 ED Note-Physician [id number] 1.00CD:127 [facility] RAD - MISCon 05-14-2023 RAD - MISC [id number] #1.00CD:127 [facility] Ambulatory Visit Summaryon 0 05-13-2023 Ambulatory [...] PM EST With: Srinivasan Lezama MD Where: [facility] 05-12-2023 [facility] Telephone ([employer]) DORIE ROOT ([id number]) 1945 F Date Time Provider Department 05/12/23 RACHAEL CHANEY During your visit today, we recorded the following information about you: Emerita Haque 05/12/2023 12:26 PM Signed Dorie Root is calling Rachael Chaney MD today to request Dr. Chaney to request medical records from patient's visit at [facility] from 05.09.23. Please call patient for any additional questions. Fax number: [phone] Patient has been identified by name and birthdate. Duration of symptoms: N/A Person calling: self Call patient at: at home [phone] (home) [phone] (work) [phone] (cell) Was an appointment scheduled: No Closing [...] Reason for Visit: Request Outside Medical Records [[id number]] Prescriptions as of 05/21/2023 - BENEFIBER, GUAR GUM, ORAL Take by mouth. - Coenzyme V71-Ayyunwe E 100-5 mg-unit cap 2 gels Orally [...] Encounter Status:Closed by CLAIRE CAMPBELL on 05/21/23 [facility] Ambulatory Visit Summaryon 0 04-30-2023 Ambulatory [...] bowel syndrome with constipation Non-smoker Osteoporosis Normal [facility] Family Medicine Office/Clini c Noteon 04-30-2023 Family Medicine Office/Clinic Note HPI Staff Patient here for one month follow up IBS Yesterday it had been 5 days since her bowels moved but then had a really good BM Still has the linzess but hasn't used it since seeing , used it when saw Roxane Currently using benefiber and sometimes the mirilax Saw dispensing and measuring optician LINA 04/29 ordered echo and stress test [...] elevated and she has been seeing her dispensing and measuring optician for this as well. This prompted a [...] with no injury in last year 1101F Vp Revenue Cycle - Ambulatory Referral 2. Primary hypertension (I10: Essential (primary) hypertension) - Elevated today but believe this is more likely due to stress. -We will see the patient back after her stress test. Ordered: Vp Revenue Cycle - Ambulatory Referral 3. Stress (F43.9: Reaction to severe stress, unspecified) - We will get the patient in with therapy for further work-up. -Discussed other options for stress mitigation -Patient would like to talk to somebody. Ordered: Vp Revenue Cycle - Ambulatory Referral 4. BMI 21.0-21.9, adult [...] with no injury in last year 1101F Vp Revenue Cycle - Ambulatory Referral Follow-up No qualifying data [...] vax 0 (more content not included)... Normal [facility] Comment on above: Result Comment: Elec tronically Signed By: Lise DOS SANTOS, Srinivasan Lynn.nidhi\Date and Time Signed: 04/30/23 15:16 EDT CNOVon 04-28-2023 CNOV Office Visit (CARDAV) DORIE ROOT ([id number]) 1945 F Date Time Provider Department 04/28/23 3:00 PM RACHAEL CHANEY During your visit today, we recorded the following information about you: Pulse Blood pressure Weight Height 60/minute 148/72 50.3 kg 1.575 m Rachael Chaney MD 04/28/2023 5:38 PM Signed [facility] [place] Stepan Sharif Department of Cardiovascular Medicine SECTION OF REGIONAL CARDIOLOGY OUTPATIENT VISIT DATE April 28, 2023 OUTPATIENT VISIT TYPE NEW PRIMARY CARE PHYSICIAN: Srinivasan Lezama MD REFERRING PHYSICIAN: No ref. provider found HISTORY OF PRESENT ILLNESS: Dorie Root is a 77 year old female from [place], [place] here today self referral. Has h/o [...] is a 77 year old female from [place], [place] here today self referral. Has h/o [...] her hu (more content not included)... Normal [facility] [id number] 04-28-2023 ECG01 Ventricular Rate : 60 BPM Atrial Rate : 60 BPM P-R Interval : 148 ms QRS Duration : 74 ms Q-T Interval : 378 ms QTC Calculation(Bazett) : 378 ms Calculated P [place] : 86 degrees Calculated R [place] : 96 degrees Calculated T [place] : 82 degrees NORMAL SINUS RHYTHM RIGHT AXIS BORDERLINE ECG Confirmed by BABS MARRERO M.D. ([id number]) on 04/29/2023 10:24:41 AM NAME : DORIE ROOT PID : [id number] : 1945 Gender : Female Race : ORD : Procedure Date : Apr 28 2023 14:42:51 Edit Date : Apr 29 2023 10:24:46 Diagnosis: NORMAL SINUS RHYTHM RIGHT AXIS BORDERLINE ECG Confirmed by BABS MARRERO M.D. ([id number]) on 04/29/2023 10:24:41 AM Test Reason : Location : 192 : [facility] Overread By : BABS MARRERO M.D. Edited By : BABS MARRERO M.D. Referred By : , Acquired by : , Normal [facility] Office/Clini c Noteon 04-07-2023 Family Medicine Office/Clinic [...] with voice recognition artificial intelligence software, specifically [employer], [employer] and or [employer]. Substitutions may have occurred due to the inherent limitations of voice recognition and artificial intelligence software. ATTESTATION: Documentation services were performed after patient or guardian consented to allow [employer] to record this visit. JAIRON housing development specialist and provider reviewed before signing. JAIRON: [...] virus vaccine, inactivated 05/31/2015 Recorded Normal [facility] Comment on above: Result Comment: Elec tronically [...] Lezama MD Primary Care Physician - Srinivasan Lezaam MD This Is Your Medications List Contact [...] PM EDT With: Srinivasan Lezama MD Where: [facility] Normal [facility] Outside Mammographyon 2022 Outside Mammography [id number] #1.00CD:127 Normal [facility] Ambulatory Visit Summaryon 0 03-25-2023 Ambulatory [...] Lise DOS SANTOS, Srinivasan Milligan Where: [facility] Normal [address] [place] [address]- \.br\ Medications\.br\ What How Much When Why Instructions\.br\ Unchanged linaclotide (Linzess 72 mcg oral capsule) 1 Capsules By Mouth Every day Irritable bowel syndrome with constipation BMI 21.0-21.9, adult Non-smoker Pickup at [facility]/pharmacy #[id number]\.br\ Unchanged albuterol (Albuterol (Eqv-ProAir HFA) 90 mcg/ [...] \.br\ Pharmacy Information\.br\ [id number]: [address], [place] [id number] [phone]\.br\ \.br\ What How Much When Comments\.br\ Stop [...] syndrome with constipation\.br\ Non-smoker\.br\ Osteoporosis\.br\ \.br\ [facility] Family Medicine Office/Clini c Noteon 03-25-2023 Family Medicine Office/Clinic Note Chief Complaint hospital follow up suture removal fell, head injury and constipation HPI Staff patient presents for follow up [facility] Patient fell on 03/19 busted head open, [...] Daily, # 90 cap(s), Refills(s) 1, Pharmacy: [id number], 155, cm, 03/25/23 8:03:00 EDT, Height/Length Dosing, [...] Daily, # 90 cap(s), Refills(s) 1, Pharmacy: [facility]/pharmacy #[id number], 155, cm, 03/25/23 8:03:00 EDT, [...] Tobacco U (more content not included)... Normal [facility] Comment on above: Result Comment: Elec tronically Signed By: Lise DOS SANTOS, Srinivasan Lynn.br\Date and Time Signed: 03/25/23 08:47 EDT CNOVon 03-24-2023 CNOV Office Visit (NEURAV) DORIE ROOT ([id number]) 1945 F Date Time Provider Department 03/24/23 [...] which included preparing to see the patient, [id number] patient care, completing clinical documentation, obtaining and/or reviewing separately obtained history, performing a medically appropriate examination, counseling and educating the patient/family/careg iver, and ordering medications, tests, or procedures. SIGNATURE: Isaac Matson MD PATIENT NAME: Dorie Root DATE: March 24, 2023 TIME: 1:43 PM Referring Provider: ISAAC MATSON [[id number]] Allergies As of Date: 03/24/2023 (No Known Allergies) Date Reviewed: 03/24/2023 Reviewed by: Jacob Zavala MA - Fully Assessed Reason for Visit: Established Patient Follow-Up [[id number]] Primary Visit Diagnosis:Dizziness and giddiness [R42] Order(s):topiramate (TOPAMAX) 25 mg tabletTake 1 tablet by mouth daily at bedtime.Disp: 30 tabletRfl: 2 Prescriptions as of 03/24/2023 - topiramate (TOPAMAX) 25 mg tablet Take 1 tablet by mouth daily at bedtime. - lisinopril (PRINIVIL) 10 mg tablet Take 10 mg by mouth once daily. - budesonide-formotero l ( (more content not included)... Normal [facility] RAD - MISCon 03-24-2023 RAD - MISC [id number] #1.00CD:127 Normal [facility] RAD - CT Reporton 03-20-2023 RAD - CT Report [id number] #1.00CD:127 Normal [facility] RAD - CT Report [id number] #1.00CD:127 Normal [facility] Lab Reportson 02-26-2023 Lab Reports [id number] #1.00CD:127 Normal [facility] Lab Reportson 02-18-2023 Lab Reports [id number]# 1.00CD:127 Normal [facility] Ambulatory Visit Summaryon 0 02-17-2023 Ambulatory [...] 21.0-21.9, adult Non-smoker Refills: 1 Pickup at [facility]/pharmacy #[id number] Unchanged albuterol (Albuterol (Eqv-ProAir HFA) 90 mcg/ [...] (CoQ10 100 mg oral capsule) Pharmacy Information [facility]/pharmacy #[id number]: [address], [place] [phone] Allergies No Known Allergies No Known Medication Allergies Problems Ongoing - Any problem that you are currently receiving treatment for. ASCVD (arteriosclerotic cardiovascular disease) Asthma BMI 21.0-21.9, adult HTN (hypertension) Irritable bowel syndrome with constipation Non-smoker Osteoporosis Normal [facility] Family Medicine Office/Clini c Noteon 02-17-2023 [...] Daily, # 30 cap(s), Refills(s) 1, Pharmacy: [id number], 155, cm, 02/17/23 11:37:00 EDT, Height/Length Dosing, 51.2, kg, 02/17/23 11:37:00 EDT, Weight Dosing 2. BMI 21.0-21.9, adult (Z68.21: Body mass index [BMI] 21.0-21.9, adult) BMI education complete Ordered: linaclotide, 72 mcg = 1 cap(s), Oral, Daily, # 30 cap(s), Refills(s) 1, Pharmacy: [id number], 155, cm, 02/17/23 11:37:00 EDT, Height/Length Dosing, 51.2, kg, 02/17/23 11:37:00 EDT, Weight Dosing 3. Non-smoker (Z78.9: Other specified health status) continue not smoking Ordered: linaclotide, 72 mcg = 1 cap(s), Oral, Daily, # 30 cap(s), Refills(s) 1, Pharmacy: [id number], 155, cm, 02/17/23 11:37:00 EDT, Height/Length [...] vaccine, inactivated (more content not included)... Normal [facility] Comment on above: Result Comment: Elec tronically Signed By: Roxane Barraza.nidhi\Date and Time Signed: 02/17/23 12:12 EDT Lab Reportson 02-03-2023 Lab Reports [id number] #1.00CD:127 Normal [facility] Lab Reportson 01-22-2023 Lab Reports [id number] #1.00CD:127 Normal [facility] CBC AUTO DIFFon 01-21-2023 BASO # 0.1 103/ul Normal 0.0-0.[address] [facility] Comment on above: Performed By: #### C BC #### [facility] [address] [place] [address] Dr. Mina Perkins Basophils/100 WBC (Bld) 0.7 % Normal 0.2-2.[address] [facility] Comment on above: Performed By: #### C BC #### [facility] [address] [address] [address] Mina Perkins EO # 0.1 103/ul Normal 0.0-0.[address] [facility] Comment on above: Performed By: #### C BC #### [facility] [address] [address] [address] Mina Perkins Eosinophils/100 WBC (Bld) 1.2 % Normal 0.9-7.[address] [facility] Comment on above: Performed By: #### C BC #### [facility] [address] [address] [address] Mina Perkins Erythrocyte distribution width (RBC) [Ratio] 12.2 % Normal 11.0-15.[address] [facility] Comment on above: Performed By: #### C BC #### [facility] [address] [place] [address] Dr. Mina Perkins Hematocrit (Bld) [Volume fraction] 44.0 % Normal 36.0-48.[address] [facility] Comment on above: Performed By: #### C BC #### [facility] [address] [place] [address] Dr. Mina Perkins Hemoglobin (Bld) [Mass/Vol] 15.4 g/dL Normal 12.0-16.[address] [facility] Comment on above: Performed By: #### C BC #### [facility] [address] [place] [address] Dr. Mina Perkins IG # 0.02 10e3/ul Normal 0.00-0.03 [facility] Comment on above: Performed By: #### C BC #### [facility] [address] [place] [address] Dr. Mina Perkins IG % 0.2 % Normal 0.0-0.[address] [facility] Comment on above: Performed By: #### C BC #### [facility] [address] [place] [address] Dr. Mina Perkins LYMPH # 1.8 103/ul Normal 1.2-3.8 [facility] Comment on above: Performed By: #### C BC #### [facility] [address] [place] [address] Dr. Mina Perkins Lymphocytes/100 WBC (Bld) 19.2 % Critically low 20.5-60.[address] [facility] Comment on above: Performed By: #### C BC #### [facility] [address] [place] [address] Dr. Mina Perkins MANUAL DIFF REQ NO Normal [facility] Comment on above: Performed By: #### C BC #### [facility] [address] [place] [address] Dr. Mina Perkins MCH (RBC) [Entitic mass] 30.8 pg Normal 26.7-34.0 [facility] Comment on above: Performed By: #### C BC #### [facility] [address] [place] [address] Dr. Mina Perkins MCHC (RBC) [Mass/Vol] 35.0 g/dL Normal 29.9-35.2 [facility] Comment on above: Performed By: #### C BC #### [facility] [address] [address] [address] Mina Perkins MCV (RBC) [Entitic vol] 88.0 fL Normal 81.0-99.[address] [facility] Comment on above: Performed By: #### C BC #### [facility] [address] [address] [address] Mina Perkins MONO # 0.7 103/ul Normal 0.3-0.8 [facility] Comment on above: Performed By: #### C BC #### [facility] [address] [place] [address] Dr. Mina Perkins Monocytes/100 WBC (Bld) 7.5 % Normal 1.7-12.[address] [facility] Comment on above: Performed By: #### C BC #### [facility] [address] [place] [address] Dr. Mina Perkins NEUT # 6.8 103/ul Critically high 1.4-6.[address] [facility] Comment on above: Performed By: #### C BC #### [facility] [address] [place] [address] Dr. Mina Perkins Neutrophils/100 WBC (Bld) 71.2 % Normal 43.0-75.[address] [facility] Comment on above: Performed By: #### C BC #### [facility] [address] [place] [address] Dr. Mina Perkins Platelet mean volume (Bld) [Entitic vol] 9.8 fL Normal 9.5-13.[address] [facility] Comment on above: Performed By: #### C BC #### [facility] [address] [place] [address] Dr. Mina Perkins PLT 278 103/ul Normal 150-450 [facility] Comment on above: Performed By: #### C BC #### [facility] [address] [place] [address] Dr. Mina Perkins RBC 5.00 106/ul Normal 4.20-5.40 [facility] Comment on above: Performed By: #### C BC #### [facility] [address] [place], [place] [id number] Dr. Mina Perkins WBC 9.5 103/ul Normal 4.0-11.0 [facility] Comment on above: Performed By: #### C #### [facility] [address] [place], [place] [address] Dr. Mina Perkins Family Medicine Office/Clini c [...] a little over a year ago in [place]. Review of Systems PHQ Score Initial Depression [...] vaccine, inactivated (more content not included)... Normal [facility] Comment on above: Result Comment: Elec tronically Signed By: Roxane Barraza\.br\Date and Time Signed: 01/21/23 14:35 EDT LIPID PROFILEon 01-21-2023 CHOL-HDL RATIO NORM SEE BELOW Normal [facility] Comment on above: Result Comment: 3.3 - 4.4 LOW RISK 4.4 - 7.1 AVERAGE RISK 7.1 - 11.0 MODERATE RISK >11.0 HIGH RISK Performed By: #### T SH, CMP, LIPID #### [facility] [address] [place], [place] [address] Dr. Mina Perkins Cholesterol [Mass/Vol] 199 mg/dL Normal <=[address] [facility] Comment on above: Performed By: #### T SH, CMP, LIPID #### [facility] [address] [place], [place] [address] Dr. Mina Perkins Cholesterol in HDL [Mass/Vol] 84 mg/dL Critically high 40-[address] [facility] Comment on above: Performed By: #### T SH, CMP, LIPID #### [facility] [address] [address] [address] Mina Perkins Cholesterol in LDL [Mass/Vol] 102.2 mg/dL Normal [facility] Comment on above: Performed By: #### T SH, CMP, LIPID #### [facility] [address] [place] [address] Dr. Mina Perkins Cholesterol.total/Ch olesterol in HDL [Mass ratio] 2.4 {ratio} Normal [facility] Comment on above: Performed By: #### T SH, CMP, LIPID #### [facility] [address] [place] [address] Dr. Mina Perkins HDL NORMAL > or = 60 mg/dl - LOW CARDIOVASCULAR RISK <40 mg/dl - HIGH CARDIOVASCULAR RISK Normal [facility] Comment on above: Performed By: #### T TRENA, CMP, LIPID #### [facility] [address] [place] [address] Dr. Mina Perkins LDL CALC NORMAL SEE BELOW Normal [facility] Comment on above: Result Comment: <100 mg/dl OPTIMAL 100 - 129 mg/dl NEAR OR ABOVE OPTIMAL 130 - 159 mg/dl BORDERLINE HIGH 160 - 189 mg/dl HIGH >190 mg/dl VERY HIGH Performed By: #### T SH, CMP, LIPID #### [facility] [address] [place] [address] Dr. Mina Perkins Triglyceride [Mass/Vol] 64 mg/dL Normal <=150 [facility] Comment on above: Performed By: #### T SH, CMP, LIPID #### [facility] [address] [place] [address] Dr. Mina Perkins VLDL CALC 12.8 mg/dL Normal [facility] Comment on above: Performed By: #### T SH, CMP, LIPID #### [facility] [address] [place] [address] Dr. Mina Perkins PROF 14(COMP METB)on 023 Albumin [Mass/Vol] 4.2 g/dL Normal 3.4-5.[address] [facility] Comment on above: Performed By: #### T SH, CMP, LIPID #### [facility] [address] [address] [address] Mina Perkins Albumin/Globulin [Mass ratio] 1.1 {ratio} Normal [facility] Comment on above: Performed By: #### T SH, CMP, LIPID #### [facility] [address] [address] [address] Mina Perkins ALP [Catalytic activity/Vol] 79 U/L Normal 46-[address] [facility] Comment on above: Performed By: #### T SH, CMP, LIPID #### [facility] [address] [address] [address] Mina Perkins ALT [Catalytic activity/Vol] 30 U/L Normal 14-[address] [facility] Comment on above: Performed By: #### T SH, CMP, LIPID #### [facility] [address] [place] [address] Dr. Mina Perkins Anion gap [Moles/Vol] 15.1 mmol/L Normal [facility] Comment on above: Performed By: #### T SH, CMP, LIPID #### [facility] [address] [place] [address] Dr. Mina Perkins AST [Catalytic activity/Vol] 39 U/L Critically high 15-[address] [facility] Comment on above: Performed By: #### T SH, CMP, LIPID #### [facility] [address] [address] [address] Mina Perkins Bilirubin [Mass/Vol] 0.9 mg/dL Normal 0.2-1.[address] [facility] Comment on above: Performed By: #### T SH, CMP, LIPID #### [facility] [address] [address] [address] Mina Perkins Calcium [Mass/Vol] 9.7 mg/dL Normal 8.5-10.[address] [facility] Comment on above: Performed By: #### T SH, CMP, LIPID #### [facility] [address] [place] [address] Dr. Mina Perkins Chloride [Moles/Vol] 99 mmol/L Normal 98-107 [facility] Comment on above: Performed By: #### T SH, CMP, LIPID #### [facility] [address] [place] [address] Dr. Mina Perkins CO2 [Moles/Vol] 27.3 mmol/L Normal 21.0-32.[address] [facility] Comment on above: Performed By: #### T SH, CMP, LIPID #### [facility] [address] [place] [address] Dr. Mina Perkins Creatinine [Mass/Vol] 0.74 mg/dL Normal 0.55-1.02 [facility] Comment on above: Performed By: #### T SH, CMP, LIPID #### [facility] [address] [place] [address] Dr. Mina Perkins EGFR-AF GUATEMALAN >60 Normal >=[address] [facility] Comment on above: Performed By: #### T SH, CMP, LIPID #### [facility] [address] [place] [address] Dr. Mina Perkins EGFR-NON AF GUATEMALAN >60 Normal >=60 [facility] Comment on above: Performed By: #### T SH, CMP, LIPID #### [facility] [address] [place] [address] Dr. Mina Perkins Globulin (S) [Mass/Vol] 3.8 g/dL Normal [facility] Comment on above: Performed By: #### T SH, CMP, LIPID #### [facility] [address] [place] [address] Dr. Mina Perkins Glucose [Mass/Vol] 85 mg/dL Normal 74-106 [facility] Comment on above: Performed By: #### T SH, CMP, LIPID #### [facility] [address] [place] [address] Dr. Mina Perkins Potassium [Moles/Vol] 4.4 mmol/L Normal 3.5-5.1 [facility] Comment on above: Performed By: #### T SH, CMP, LIPID #### [facility] [address] [place] [address] Dr. Mina Perkins Protein [Mass/Vol] 8.0 g/dL Normal 6.4-8.2 [facility] Comment on above: Performed By: #### T SH, CMP, LIPID #### [facility] [address] [address] [address] Mina Perkins Sodium [Moles/Vol] 137 mmol/L Normal 136-[address] [facility] Comment on above: Performed By: #### T SH, CMP, LIPID #### [facility] [address] [address] [address] Mina Perkins Urea nitrogen [Mass/Vol] 15.0 mg/dL Normal 7.0-18.[address] [facility] Comment on above: Performed By: #### T SH, CMP, LIPID #### [facility] [address] [address] [address] Mina Perkins Urea nitrogen/Creatinine [Mass ratio] 20.3 mg/mg Normal [facility] Comment on above: Performed By: #### T SH, CMP, LIPID #### [facility] [address] [place] [address] Dr. Mina Perkins Patient Educationon 01-22-20 Patient [...] numbers. This can be done either in [employer] ([place] or metric measurements. Note that charts and online BMI calculators are available to help you find your BMI quickly and easily without having to do these calculations yourself. To calculate your BMI in [employer] ([place] measurements: 1. Measure your weight in [...] for Disease Control and Prevention: www.cdc.gov ? [place] [employer]: www.heart.org ? National Heart, Lung, and Blood [place]: www.nhlbi.nih.gov Summary ? Body mass index (BMI) is a number that is calculated from a person's weight and height. ? BMI may help estimate how much of a person's weight is composed of fat. BMI can help identify those who may be at higher risk for certain medical problems. ? BMI can be measured using [employer] measurements or metric measurements. ? BMI charts are used to identify whether you are underweight, normal weight, overweight, or obese. This information is not intended to replace advice given to you by your health care provider. Make sure you discuss any questions you have with your health care provider. Document Revised: 05/10/2020 Document Reviewed: 03/17/2020 [employer] Patient Education ? 2022 [employer] Normal [facility] TSHon 01-21-2023 TSH 1.896 uIU/mL Normal 0.358-3.[address] [facility] Comment on above: Performed By: #### T SH, CMP, LIPID #### [facility] [address] [address] [address] Mina Perkins [facility] 01-16-2023 [facility] HNO ID: [id number] Author: RT Grabiel(R) Service: Radiology Author Type: [...] MR January 16, 2023 1:25 PM Normal [facility] MRI BRAIN WO IVCONon 023 MRI BRAIN WO IVCON * * *Final Report* * * DATE OF EXAM: Jan 16 2023 1:40PM [facility] 0294 - MRI BRAIN WO IVCON / [...] posterior fossa abnormality. No acute intracranial infarction. House Piping Inspector: PSCB Transcribe Date/Time: Jan 16 2023 1:44P Dictated by : CRISTINA LUCERO MD This examination was interpreted and the report reviewed and electronically signed by: CRISTINA LUCERO MD on Jan 16 2023 1:45PM EST [id number] CN Normal [facility] US CAROTID ARTERIES ELSI VAS LABon 01-02-2023 US CAROTID ARTERIES ELSI VAS LAB Non-Invasive Vascular Laboratory [facility] F30 Carotid Duplex Bilateral/Complete Date of service/time: [...] Interpreting physician: OLIVIA Malhotra DO Final CC [employer] [facility] Image : [id number] See Link below for Image Normal [facility] CNOVon 12-23-2022 CNOV Office Visit (NEURAV) DKDORIE ROLLE ([id number]) 1945 F Date Time Provider Department 12/23/22 [...] the date (more content not included)... Normal [facility] HISTORY PHYSICALon 3 HISTORY PHYSICAL HNO ID: [id number] Author: Isaac Matson MD Service: ? Author [...] which included preparing to see the patient, [id number] patient care, completing clinical documentation, obtaining and/or reviewing separately obtained history, performing a medically appropriate examination, couns (more content not included)... Normal [facility] Immunization Recordson 11-22 Immunization Records [id number] #1.00CD:127 Normal [facility] Ambulatory Visit Summaryon 0 11-20-2022 Ambulatory [...] Allergies No Known Medication Allergies Normal [facility] Medicine Office/Clini c Noteon 11-20-2022 Family Medicine [...] the next week. they will go to [facility]. RTC as needed. Needs medicare wellness [...] virus vaccine, inactivated 05/31/2015 Recorded Normal [facility] Comment on above: Result Comment: Elec tronically Signed By: Roxane Barraza.br\Date and Time Signed: 11/20/22 16:14 EDT CNOVon 11-15-2022 CNOV Office Visit (CDIN) DORIE ROOT ([id number]) 1945 F Date Time Provider Department 11/15/22 12:30 PM LAUREN MCCAULEY [facility] During your visit today, we recorded the following information about you: Lauren Mccauley, PhD 11/21/2022 7:44 AM Signed [facility] [place] [facility] Vestibular Test Battery Report Name: Dorie Root CC#: [id number] Date of Service: 11/15/2022 Date of : [...] right side of her head around the oriental orthodox region that occurs very rarely, about once [...] exercises, 2) (more content not included)... Normal [facility] Historical Records Officeon 11-05-2022 Historical Records Office [id number] #[id number]:127 Normal [facility] Patient Correspondenceon Patient Correspondence [id number] #1.00CD:127 Normal [facility] Nurse Consultation Noteon Nurse Consultation Note Reason for Visit Patient here for blood pressure check Physical Exam Vitals & Measurements BP: 150/66 Medications No active medications Allergies No active allergies Normal [facility] FREE T3on 10-29-2022 FREE T3 2.71 pg/mlL Normal 2.18-3.[address] [facility] Comment on above: Performed By: #### F T3, TSH #### [facility] [address] [place] [address] Dr. Mina Perkins FREE T4on 10-29-2022 Free T4 [Mass/Vol] 1.10 ng/dL Normal 0.76-1.[address] [facility] Comment on above: Performed By: #### F T4 #### [facility] [address] [place] [address] Dr. Mina Perkins TSHon 10-29-2022 TSH 2.219 uIU/mL Normal 0.358-3.[address] [facility] Comment on above: Performed By: #### F T3, TSH #### [facility] [address] [place] [address] Dr. Mina Perkins CBC AUTO DIFFon 05-29-2022 BASO # 0.1 103/ul Normal 0.0-0.[address] [facility] Comment on above: Performed By: #### C BC #### [facility] [address] [place] [address] Dr. Mina Perkins Basophils/100 WBC (Bld) 0.7 % Normal 0.2-2.[address] [facility] Comment on above: Performed By: #### C BC #### [facility] [address] [place] [address] Dr. Mina Perkins EO # 0.1 103/ul Normal 0.0-0.[address] [facility] Comment on above: Performed By: #### C BC #### [facility] [address] [place] [address] Dr. Mina Perkins Eosinophils/100 WBC (Bld) 1.7 % Normal 0.9-7.[address] [facility] Comment on above: Performed By: #### C BC #### [facility] [address] [place] [address] Dr. Mina Perkins Erythrocyte distribution width (RBC) [Ratio] 12.1 % Normal 11.0-15.[address] [facility] Comment on above: Performed By: #### C BC #### [facility] [address] [place] [address] Dr. Mina Perkins Hematocrit (Bld) [Volume fraction] 40.8 % Normal 36.0-48.[address] [facility] Comment on above: Performed By: #### C BC #### [facility] [address] [place] [address] Dr. Mina Perkins Hemoglobin (Bld) [Mass/Vol] 14.2 g/dL Normal 12.0-16.[address] [facility] Comment on above: Performed By: #### C BC #### [facility] [address] [place] [address] Dr. Mina Perkins IG # 0.01 10e3/ul Normal 0.00-0.[address] [facility] Comment on above: Performed By: #### C BC #### [facility] [address] [place] [address] Dr. Mina Perkins IG % 0.1 % Normal 0.0-0.[address] [facility] Comment on above: Performed By: #### C BC #### [facility] [address] [place] [address] Dr. Mina Perkins LYMPH # 1.5 103/ul Normal 1.2-3.[address] [facility] Comment on above: Performed By: #### C BC #### [facility] [address] [place] [address] Dr. Mina Perkins Lymphocytes/100 WBC (Bld) 20.1 % Critically low 20.5-60.[address] [facility] Comment on above: Performed By: #### C BC #### [facility] [address] [place] [address] Dr. Mina Perkins MANUAL DIFF REQ NO Normal [facility] Comment on above: Performed By: #### C BC #### [facility] [address] [place] [address] Dr. Mina Perkins MCH (RBC) [Entitic mass] 30.5 pg Normal 26.7-34.[address] [facility] Comment on above: Performed By: #### C BC #### [facility] [address] [place] [address] Dr. Mina Perkins MCHC (RBC) [Mass/Vol] 34.8 g/dL Normal 29.9-35.2 [facility] Comment on above: Performed By: #### C BC #### [facility] [address] [place] [address] Dr. Mina Perkins MCV (RBC) [Entitic vol] 87.7 fL Normal 81.0-99.[address] [facility] Comment on above: Performed By: #### C BC #### [facility] [address] [address] [address] Mina Perkins MONO # 0.6 103/ul Normal 0.3-0.8 [facility] Comment on above: Performed By: #### C BC #### [facility] [address] [place] [address] Dr. Mina Perkins Monocytes/100 WBC (Bld) 8.1 % Normal 1.7-12.[address] [facility] Comment on above: Performed By: #### C BC #### [facility] [address] [place] [address] Dr. Mina Perkins NEUT # 5.2 103/ul Normal 1.4-6.[address] [facility] Comment on above: Performed By: #### C BC #### [facility] [address] [place] [address] Dr. Mina Perkins Neutrophils/100 WBC (Bld) 69.3 % Normal 43.0-75.[address] [facility] Comment on above: Performed By: #### C BC #### [facility] [address] [place] [address] Dr. Mina Perkins Platelet mean volume (Bld) [Entitic vol] 9.3 fL Critically low 9.5-13.[address] [facility] Comment on above: Performed By: #### C BC #### [facility] [address] [place] [address] Dr. Mina Perkins PLT 311 103/ul Normal 150-450 [facility] Comment on above: Performed By: #### C BC #### [facility] [address] [place] [address] Dr. Mina Perkins RBC 4.65 106/ul Normal 4.20-5.40 [facility] Comment on above: Performed By: #### C BC #### [facility] [address] [place] [address] Dr. Mina Perkins WBC 7.5 103/ul Normal 4.0-11.0 [facility] Comment on above: Performed By: #### C BC #### [facility] [address] [address] [address] Mina Perkins LIPID PROFILEon 05-29-2022 CHOL-HDL RATIO NORM SEE BELOW Normal [facility] Comment on above: Result Comment: 3.3 - 4.4 LOW RISK 4.4 - 7.1 AVERAGE RISK 7.1 - 11.0 MODERATE RISK >11.0 HIGH RISK Performed By: #### L IPID, CMP #### [facility] [address] [address] [address] Mina Perkins Cholesterol [Mass/Vol] 196 mg/dL Normal <=[address] [facility] Comment on above: Performed By: #### L IPID, CMP #### [facility] [address] [place] [address] Dr. Mina Perkins Cholesterol in HDL [Mass/Vol] 82 mg/dL Critically high 40-[address] [facility] Comment on above: Performed By: #### L IPID, CMP #### [facility] [address] [place] [address] Dr. Mina Perkins Cholesterol in LDL [Mass/Vol] 99.0 mg/dL Normal [facility] Comment on above: Performed By: #### L IPID, CMP #### [facility] [address] [address] [address] Mina Perkins Cholesterol.total/Ch olesterol in HDL [Mass ratio] 2.4 {ratio} Normal [facility] Comment on above: Performed By: #### L IPID, CMP #### [facility] [address] [place] [address] Dr. Mina Perkins HDL NORMAL > or = 60 mg/dl - LOW CARDIOVASCULAR RISK <40 mg/dl - HIGH CARDIOVASCULAR RISK Normal [facility] Comment on above: Performed By: #### L IPID, CMP #### [facility] [address] [place] [address] Dr. Mina Perkins LDL CALC NORMAL SEE BELOW Normal [facility] Comment on above: Result Comment: <100 mg/dl OPTIMAL 100 - 129 mg/dl NEAR OR ABOVE OPTIMAL 130 - 159 mg/dl BORDERLINE HIGH 160 - 189 mg/dl HIGH >190 mg/dl VERY HIGH Performed By: #### L IPID, CMP #### [facility] [address] [address] [address] Mina Perkins Triglyceride [Mass/Vol] 75 mg/dL Normal <=150 [facility] Comment on above: Performed By: #### L IPID, CMP #### [facility] [address] [address] [address] Mina Perkins VLDL CALC 15.0 mg/dL Normal [facility] Comment on above: Performed By: #### L IPID, CMP #### [facility] [address] [address] [address] Mina Perkins PROF 14(COMP METB)on 022 Albumin [Mass/Vol] 4.1 g/dL Normal 3.4-5.[address] [facility] Comment on above: Performed By: #### L IPID, CMP #### [facility] [address] [place] [address] Dr. Mina Perkins Albumin/Globulin [Mass ratio] 1.2 {ratio} Normal [facility] Comment on above: Performed By: #### L IPID, CMP #### [facility] [address] [place] [address] Dr. Mina Perkins ALP [Catalytic activity/Vol] 77 U/L Normal 46-[address] [facility] Comment on above: Performed By: #### L IPID, CMP #### [facility] [address] [place] [address] Dr. Mina Perkins ALT [Catalytic activity/Vol] 36 U/L Normal 14-59 [facility] Comment on above: Performed By: #### L IPID, CMP #### [facility] [address] [place] [address] Dr. Mina Perkins Anion gap [Moles/Vol] 15.3 mmol/L Normal [facility] Comment on above: Performed By: #### L IPID, CMP #### [facility] [address] [place] [address] Dr. Mina Perkins AST [Catalytic activity/Vol] 31 U/L Normal 15-37 [facility] Comment on above: Performed By: #### L IPID, CMP #### [facility] [address] [address] [address] Mina Perkins Bilirubin [Mass/Vol] 0.9 mg/dL Normal 0.2-1.[address] [facility] Comment on above: Performed By: #### L IPID, CMP #### [facility] [address] [place] [address] Dr. Mina Perkins Calcium [Mass/Vol] 9.5 mg/dL Normal 8.5-10.1 [facility] Comment on above: Performed By: #### L IPID, CMP #### [facility] [address] [place] [address] Dr. Mina Perkins Chloride [Moles/Vol] 97 mmol/L Critically low 98-[address] [facility] Comment on above: Performed By: #### L IPID, CMP #### [facility] [address] [place] [address] Dr. Mina Perkins CO2 [Moles/Vol] 25.6 mmol/L Normal 21.0-32.[address] [facility] Comment on above: Performed By: #### L IPID, CMP #### [facility] [address] [place] [address] Dr. Mina Perkins Creatinine [Mass/Vol] 0.81 mg/dL Normal 0.55-1.[address] [facility] Comment on above: Performed By: #### L IPID, CMP #### [facility] [address] [place] [address] Dr. Mina Perkins EGFR-AF GUATEMALAN >60 Normal >=60 [facility] Comment on above: Performed By: #### L IPID, CMP #### [facility] [address] [place] [address] Dr. Mina Perkins EGFR-NON AF GUATEMALAN >60 Normal >=[address] [facility] Comment on above: Performed By: #### L IPID, CMP #### [facility] [address] [place] [address] Dr. Mina Perkins Globulin (S) [Mass/Vol] 3.4 g/dL Normal [facility] Comment on above: Performed By: #### L IPID, CMP #### [facility] [address] [address] [address] Mina Perkins Glucose [Mass/Vol] 89 mg/dL Normal 74-[address] [facility] Comment on above: Performed By: #### L IPID, CMP #### [facility] [address] [address] [address] Mina Perkins Potassium [Moles/Vol] 3.9 mmol/L Normal 3.5-5.[address] [facility] Comment on above: Performed By: #### L IPID, CMP #### [facility] [address] [address] [address] Mina Perkins Protein [Mass/Vol] 7.5 g/dL Normal 6.4-8.[address] [facility] Comment on above: Performed By: #### L IPID, CMP #### [facility] [address] [address] [address] Mina Perkins Sodium [Moles/Vol] 134 mmol/L Critically low 136-145 [facility] Comment on above: Performed By: #### L IPID, CMP #### [facility] [address] [address] [address] Mina Perkins Urea nitrogen [Mass/Vol] 14.0 mg/dL Normal 7.0-18.[address] [facility] Comment on above: Performed By: #### L IPID, CMP #### [facility] [address] [place] [address] Dr. Mina Perkins Urea nitrogen/Creatinine [Mass ratio] 17.3 mg/mg Normal [facility] Comment on above: Performed By: #### L IPID, CMP #### [facility] [address] [place] [address] Dr. Mina Perkins MG MAMM SCREEN 3D ELSI CADon 03-14-2022 MG MAMM SCREEN 3D ELSI CAD Patient: DORIE ROOT Exam Date: 03/14/2022 : 1945 Gender:F Ordering : DR KAIT BOYCE Admission #: [id number] Family : DR JULIANO SHARMA . Order #: [id number] CLICK HERE TO VIEW EXAM RADIOLOGY REPORT [...] breast cancer at age 53. LOCATION: [facility] BREAST COMPOSITION: Heterogeneously dense,which may obscure [...] Kasper MD on 03/14/2022 at 13:40 Normal [facility] 09-07-2021 L Specimen: [id number] Received: 09/07/21 Status: MITZY Ramos Num: [id number] Spec Type: Surgical Subm Dr: An Yanez Jr, DO Tissues: A Colon Biopsy (RANDOM COLON) Procedures: HE Stain/2, Gross/Micro L4 Patient Age/Sex Location Account Attending Physician Dorie Root 76/F [id number] An Yanez Jr, DO SPEC NUM: [id number] RECD: 09/07/21 STATUS: MITZY MANDELYasmin NUM: [id number] JESICA: 09/07/21 [facility] DR: An Yanez Jr, DO ENTERED: 09/07/21 [facility] DR: SUZI TYPE: Surgical DEPT: S ORDERED: [...] support the above pathologic diagnosis. CPT Codes 98059 Specimen: [id number] Received: 09/07/21 Status: MITZY Ramos Num: [id number] Spec Type: Surgical Subm Dr: An Yanez Jr, DO Tissues: A Colon Biopsy (RANDOM COLON) Procedures: HE Stain/2, Gross/Micro L4 Patient: DkJeronimo rollekayleigh Connell [id number] (Continued) Signed (signature on file) Afua Nash MD 09/10/21 [id number] [facility] COVID-19 Antigenon 2 COVID-19 Antigen Healthcare Worker?: [...] its performance Zena Disclaimer characteristic determined by [employer] and Zena Disclaimer validated at [facility]. This Zena Disclaimer test has not been [...] is terminated or revoked sooner. PERFORMED BY: [place] [address] PATHOLOGIST ROPE CUTTER ESTEBAN REAGAN M.D. Normal [facility] Comment on above: Performed By: #### S OFIANEG, COVID-19 ZENA #### [address] Zena Ag Negativeon 09-05-19 22 Zena Ag Negative Negative Normal Negative [facility] Comment on above: Result Comment: This is a duplicate Zena SARS Antigen (RANJAN) result to be used for statistical tracking purpose only. PERFORMED BY: [place] [address] PATHOLOGIST ROPE CUTTER ESTEBAN REAGAN M.D. Performed By: #### S OFIANEG, COVID-19 ZENA #### [facility] [address] [place] [address] Vital Signs Date Time Vital Sign Value [...] Facility Start: 07-23-2024 ambulatory Srinivasan Lezama Facility :[facility] [place] Start: 10-08-2023 ambulatory Shen Talal Sarmini Facility:[facility] Start: 09-15-2023 ambulatory Srinivasan Lezama Facility :[facility] [place] Start: 08-12-2023 ambulatory Roxane Arron Facility:[facility] Start: 08-11-2023 End: 08-12-2023 ambulatory Srinivasan Lezama Facility:[facility] [place] Start: 07-31-2023 End: 08-01-2023 ambulatory Roxane L Arron Facility:[facility] [place] Start: 07-29-2023 End: 07-30-2023 ambulatory Srinivasan Lezama Facility:[facility] Start: 07-29-2023 End: 07-29-2023 Lab Drop off Srinivasan Lezama [facility] Start: 07-23-2023 End: 07-24-2023 ambulatory Roxane L Arron Facility:[facility] Start: 07-23-2023 End: 07-23-2023 Lab Drop off Roxane L Arron [facility] Start: 07-11-2023 End: 07-12-2023 ambulatory YAIR R WATTAR Facility:[facility] Start: 06-17-2023 End: 06-17-2023 ambulatory YAIR R GREGORYTAR Facility:[facility] Start: 06-12-2023 End: 06-12-2023 ambulatory ISAAC MATSON Facility:[facility] Start: 06-12-2023 End: 06-12-2023 Patient encounter procedure Isaac aMtson MD Work Phone: Neurology Comment on above: Dizziness and giddin ess (Primary Dx); Vertigo Start: 06-11-2023 End: 06-11-2023 ambulatory YAIR R WATTAR Facility:[facility] Start: 06-11-2023 End: 06-11-2023 ambulatory YAIR R WATTAR Facility:[facility] Start: 05-13-2023 End: 05-14-2023 ambulatory Srinivasan Lezama Facility:[facility] [place] h[place] Start: 05-12-2023 Telephone encounter Rachael figueroa MD Work Phone: Internal Medicine Comment on above: Request Outside [facility] Start: 04-30-2023 End: 05-01-2023 ambulatory Srinivasan Lezama Facility:[facility] [place] Start: 04-28-2023 End: 04-28-2023 ambulatory YAIR R WATTAR Facility:[facility] Start: 04-28-2023 End: 04-28-2023 Patient encounter procedure Yair R Wattar MD Work Phone: Cardiology Comment on above: Chest pain, unspecif ied type (Primary Dx); SOB (shortness of breath) Start: 04-02-2023 End: 04-03-2023 ambulatory Srinivasan Lezama Facility: [facility] [place] [facility] Start: 03-25-2023 End: 03-26-2023 ambulatory Srinivasan Lezama Facility:[facility] [place] Start: 03-24-2023 End: 03-24-2023 ambulatory ISAAC T SESE Facility:[facility] Start: 02-17-2023 End: 02-18-2023 ambulatory Roxane Heller Facility:[facility] [place] Start: 01-29-[address] JULIANO SHARMA . Facil ity:[facility] Start: 01-21-2023 End: 01-22-[address] JULIANO SHARMA . 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] Start: 01-02-2023 End: 01-02-2023 ambulatory ISAAC T HUYEN Facility:[facility] Start: 12-23-2022 End: 12-23-2022 ambulatory ISAAC T SESE Facility:[facility] Start: 12-23-2022 End: 12-23-2022 Patient encounter procedure Isaac Matson MD Work Phone: Neurology Comment on above: Ataxia following cer ebral infarction (Primary Dx); Dizziness and giddiness; Vertigo Start: 11-20-2022 End: 11-21-2022 Orders Only Hema Good MD Work Phone: [facility] Comment on above: Dizziness (Primary D x) Start: 11-15-2022 End: 11-16-2022 ambulatory LAUREN MCCAULEY Facility:[facility] Start: 11-15-2022 End: 11-15-2022 Patient encounter procedure Lauren Mccauley PhD Work Phone: Audiology Comment on above: Dizziness (Primary D x); Head pains Start: 11-04-2022 End: 11-05-2022 ambulatory JULIANO SHARMA Facility:[facility] [place] Start: 10-29-2022 End: 10-30-2022 [...] 10-01-2021 Colonoscopy Roxane lua Comment on above: [facility] Dilatation and curet tage: routine Roxane Heller Comment on above: pt states this was y ears ago Plan of Treatment Date Care Activity Detail Author Start: 05-07-2032 Urine microalbumin profile DTa P,Tdap,Td Vaccine (2 - Tdap) [facility] Start: 05-02-2023 Covid-19 Vaccine ( season) Covid-19 Vaccine ( season) [facility] Start: 05-02-2023 Influenza vaccination C [facility] Start: 04-28-2023 End: 06-28-2023 Lipid 1996 panel - Serum or Plasma LIPID PANEL BASIC Lab Routine Chest pain, unspecified type Expected: 04/28/2023, Expires: 06/28/2023 [facility] Work Phone: Comment on above: Expected: 04/28/2023 [...] Hospital Start: 1988 DIABETES SCREEN DIABETES SCREEN [facility] Start: 1988 Diabetes Screening Diabetes Screenin g [facility] Start: 1962 Urine microalbumin profile [facility] End: 04-28-2024 ECG COMPLETE ECG COMPLETE ECG Routine Chest pain, unspecified type 1 Occurrences starting 04/28/2023 until 04/28/2024 [facility] Work Phone: Comment on above: 1 Occurrences starti ng 04/28/2023 until 04/28/2024 ECG COMPLETE ECG COMPLETE ECG 04/28/2023 2:42 PM EDT [facility] End: 04-28-2024 Echocardiography ECHO Cardiology Routine Chest pain, unspecified type 1 Occurrences starting 04/28/2023 until 04/28/2024 [facility] Work Phone: Comment on above: 1 Occurrences starti ng 04/28/2023 until 04/28/2024 Mri brain brain stem w/o contrast material MRI BRAIN WO IVCON Radiology Routine Ataxia following cerebral infarction Vertigo Ordered: 12/23/2022 [facility] Work Phone: Comment on above: Ordered: 12/23/2022 End: 05-27-2024 NM CARDIAC PERF STRESS/PHARM NM CARDIAC PERF STRESS/PHARM Radiology Routine Chest pain, unspecified type 1 Occurrences starting 04/28/2023 until 05/27/2024 [facility] Work Phone: Comment on above: 1 Occurrences starti ng 04/28/2023 until 05/27/2024 End: 12-24-2023 US CAROTID ARTERIES [facility] US CAROTID ARTERIES [facility] Vascular Lab Routine Ataxia following cerebral infarction Dizziness and giddiness 1 Occurrences starting 12/23/2022 until 12/24/2023 [facility] Work Phone: Comment on above: 1 Occurrences starti ng 12/23/2022 until 12/24/2023 [facility] Immunizations Immunization Date Immunization Notes Care Provider [facility] 11-20-2022 pneumococcal 20-janette nt conjugate vaccine Roxane Arron [facility] 06-21-2022 influenza virus vaccine, unspecified formulation Yair Chaney MD Work Phone: [facility] 05-25-2021 SARS-CoV-2 (COVID-19 ) mRNA BNT-162b2 vax Roxane Arron [facility] Comment on above: Result Comment: 2022: [id number] 05-18-2021 influenza virus vaccine, unspecified formulation Roxane Arron [facility] 10-20-2020 SARS-CoV-2 (COVID-19 ) mRNA BNT-162b2 vax Roxane Arron [facility] Comment on above: Result Comment: 2022: [id number] 09-29-2020 SARS-CoV-2 (COVID-19 ) mRNA BNT-162b2 vax Roxane Arron [facility] Comment on above: Result Comment: 2022: [id number] 06-06-2020 influenza virus vaccine, unspecified formulation Roxane Arron [facility] 05-26-2019 influenza virus vaccine, unspecified formulation Roxane Arron [facility] 2019 influenza virus vaccine, unspecified formulation Roxane Arron [facility] 05-14-2019 zoster vaccine recombinant Roxane Arron [facility] 03-18-2019 zoster vaccine recombinant Roxane Arron [facility] 06-02-2018 influenza virus vaccine, unspecified formulation Roxane Raron [facility] 06-12-2017 influenza virus vaccine, unspecified formulation Roxane Arron [facility] 06-10-2016 influenza virus vaccine, unspecified formulation Roxane Arron [facility] 08-10-2015 pneumococcal conjuga te vaccine, 13 valent Roxane Arron [facility] 06-07-2015 zoster vaccine, live Roxane Sc hwab [facility] 05-31-2015 influenza virus vaccine, unspecified formulation Roxane Arron [facility] Payers Date Payer Category Payer Private Health Insurance [id number] 2021 Medicare AETNA MEDICARE A ETNA MEDICARE PPO [id number] 2021-Present [phone] [address] [place] [address] PPO [id number] 1959 Medicare [id number] 1959 Unknown [id number] 1945 Unknown [id number] 2.16.840.1.656806.3.579.2.5 1945 Unknown [id number] 2.16.840.1.429342.3.579.2.5 93 1943 Unknown [id number] 2.16.840.1.098393.3.579.2.5 1943 Unknown [id number] 2.16.840.1.616981.3.579.2.5 1943 Unknown [id number] 2.16.840.1.339623.3.579.2.5 93 1943 Unknown [id number] 2.16.840.1.249226.3.579.2.5 93 1943 Unknown [id number] 2.16.840.1.047254.3.579.2.5 1943 Unknown [id number] 2.16.840.1.422042.3.579.2.5 93 1943 Unknown [id number] 2.16.840.1.776807.3.579.2.7 1943 Unknown [id number] 2.16.840.1.991303.3.579.2.7 1943 Unknown [id number] 2.16.840.1.103022.3.579.2.7 1943 Unknown [id number] 2.16.840.1.738697.3.579.2.7 1943 Unknown [id number] 2.16.840.1.199377.3.579.2.7 1943 Unknown [id number] 2.16.840.1.709413.3.579.2.7 1943 Unknown [id number] 2.16.840.1.476515.3.579.2.7 1943 Unknown [id number] 2.16.840.1.006520.3.579.2.7 1943 Unknown [id number] 2.16.840.1.015894.3.579.2.7 1943 Unknown [id number] 2.16.840.1.429659.3.579.2.7 1943 Unknown [id number] 2.16.840.1.913092.3.579.2.7 1943 Unknown [id number] 2.16.840.1.135249.3.579.2.7 1943 Unknown [id number] 2.16.840.1.802243.3.579.2.7 1943 Unknown [id number] 2.16.840.1.392725.3.579.2.7 1943 Unknown [id number] 2.16.840.1.943325.3.579.2.7 1943 Unknown [id number] 2.16.840.1.425743.3.579.2.7 1945 Unknown [id number] 2.16.840.1.792512.3.579.2.7 Social History Date Type Detail Facility Start: 06-12-2023 End: 07-23-2023 Tobacco smoking status NHIS Never smoked tobacco [facility] Work Phone: Comment on above: denies Start: 07-02-2006 End: 06-12-2023 Alcohol intake Not Asked [facility] Start: 1945 Sex Assigned At Not on file C [facility] Start: 11-15-2022 End: 03-24-2023 History of Social function [facility] Start: 11-15-2022 End: 03-24-2023 Area Deprivation Index [facility] National Score (1-10 0), lower number is lower risk [facility] Comment on above: denies Clinical Notes 11-15-2022 to 06-17-2023 Isaac Matson MD - 06/12/2023 3:10 PM EDTSIsaac aparicio MD - 06/12/2023 2:26 PM EDTTelephone Encounter - Claire Campbell - 05/21/2023 9:59 AM ARYANTRachael Chaney MD - 04/28/2023 3:00 PM EDT Note Date & Type Note Facility 06-17-2023 Note HNO ID: [id number] Author: Rachael Chaney MD Service: ? Author Type: Physician Type: Progress Notes Filed: 06/17/2023 12:06 PM Note Text: [facility] [place] Stepan Sharif Department of Cardiovascular Medicine SECTION OF REGIONAL CARDIOLOGY OUTPATIENT VISIT DATE June 17, 2023 OUTPATIENT VISIT TYPE ESTABLISHED HISTORY OF PRESENT ILLNESS: Dorie Root is a (an) 78 year old year old female who is here today for follow-up. She underwent stress nuclear test and echo. Presents with Last OV 04/28/23 Dorie Root is a 77 year old female from [place], [place] here today self referral. Has h/o [...] GUAR GUM, ORAL Take by mouth. Coenzyme X45-Crkppfw E 100-5 mg-unit cap 2 gels Orally [...] due to body (more content not included)... [facility] 06-12-2023 Note HNO ID: [id number] Author: Isaac Matson MD Service: ? Author [...] VITAMIN D3 ORAL) Take by mouth. Coenzyme B62-Tamzmqr E 100-5 mg-unit cap 2 gels Orally [...] which included preparing to see the patient, havl-al-zead patient care, completing clinical documentation, obtaining and/or [...] to the [place] (more content not included)... [facility] 06-12-2023 Note HNO ID: [id number] Author: Isaac Matson MD Service: ? Author [...] Probability Score: 30 (Sleep study not recommended) [facility] 06-12-2023 History of Present illness Narrative NEUROLOGY [...] VITAMIN D3 ORAL) Take by mouth. Coenzyme I77-Ooinfhc E 100-5 mg-unit cap 2 gels Orally [...] which included preparing to see the patient, mgqe-fn-lsfx patient care, completing clinical documentation, obtaining and/or [...] [facility]-11-2023 Note HNO ID: [id number] Author: Ricardo Concepcion RT(R) Service: Nuclear Medicine [...] Discontinued PROCEDURE TYPE: NM Stress: 12.9 mCi Vx95p-Osujfom was administered IV for Rest Imaging at 1235 by MB. 33.0 mCi Kn94a-Nrsbpcp was administered IV for Stress Imaging at 1332 by MB. PATIENT DISCHARGED TO: Ambulatory patient, left [place] department area. A Diagnostic radioactive procedure has taken place, with no further precautions necessary other than routine body substance precautions. More information regarding radiation safety can be found using this link: [email or web address] [email or web address] SIGNATURE: RT Edi(R) PATIENT NAME: Dorie Root DATE: June 11, 2023 TIME: 1:34 PM PAGER/CONTACT #: [facility] 05-21-2023 Miscellaneous Notes Medical records request has been sent. Fax confirmation was also scanned into pt chart Routing to PSS to assist. Dorie Root is calling Rachael Chaney MD today to request Dr. Chaney to request medical records from patient's visit at [facility] from 05.09[facility]23. Please call patient for any additional questions. Fax number: [phone] Patient has been identified by name and birthdate. Duration of symptoms: N/A Person calling: self Call patient at: at home [phone] (home) [phone] (work) [phone] (cell) Was an appointment scheduled: No Closing statement: Results or non-symptom based questions: Thank you for calling [facility], your call will be returned within the next business day. Thank you, Emerita Haque documented in this encounter [facility] 04-28-2023 Note HNO ID: [id number] Author: Rachael Chaney MD Service: ? Author Type: Physician Type: Progress Notes Filed: 04/28/2023 5:38 PM Note Text: [facility] [place] Stepan Sharif Department of Cardiovascular Medicine SECTION OF REGIONAL CARDIOLOGY OUTPATIENT VISIT DATE April 28, 2023 OUTPATIENT VISIT TYPE NEW PRIMARY CARE PHYSICIAN: Srinivasan Lezama MD REFERRING PHYSICIAN: No ref. provider found HISTORY OF PRESENT ILLNESS: Dorie Root is a 77 year old female from [place], [place] here today self referral. Has h/o [...] is a 77 year old female from [place], [place] here today self referral. Has h/o [...] - Will ch (more content not included)... [facility] 04-28-2023 History of Present illness Narrative Images from the original note were not included. [facility] [place] Stepan Sharif Department of Cardiovascular Medicine SECTION OF REGIONAL CARDIOLOGY OUTPATIENT VISIT DATE April 28, 2023 OUTPATIENT VISIT TYPE NEW PRIMARY CARE PHYSICIAN: Srinivasan Lezama MD REFERRING PHYSICIAN: No ref. provider found HISTORY OF PRESENT ILLNESS: Dorie Root is a 77 year old female from [place], [place] here today self referral. Has h/o [...] is a 77 year old female from [place], [place] here today self referral. Has h/o [...] up This note was partially generated using [employer] voice recognition system, and there may be some incorrect words, spellings, and punctuation that were not noted in checking the note before saving. Yair Chaney M.D., F.Raisa.CZuleikaC CONTACT INFORMATION: Leonel Chaney M.D., Kahlil. Hull Line Crew Member Clinical student affairs dean [facility] Staff Field Crop Farmworker Ezequiel Milligan [facility] Mail Code [id number] [facility] [place] [address] CC: Srinivasan Lezama [facility] [address] documented in this encounter [facility] 03-24-2023 Note HNO ID: [id number] Author: Isaac Matson MD Service: ? Author [...] which included preparing to see the patient, ubys-gd-prpg patient care, completing clinical documentation, obtaining and/or reviewing separately obtained history, performing a medically appropriate examination, counseling and educating the patient/family/caregiver, and ordering medications, tests, or procedures. SIGNATURE: Isaac Matson MD PATIENT NAME: Dorie Root DATE: March 24, 2023 TIME: 1:43 PM [facility] 01-16-2023 Miscellaneous Notes Radiology Service Progress Note [...] which included preparing to see the patient, nlrl-zv-pdly patient care, completing clinical documentation, obtaining and/or reviewing separately obtained history, performing a medically appropriate examination, counseling and educating the patient/family/caregiver, and ordering medications, tests, or procedures. Signature Isaac Matson MD Staff, Neurology December 23, 2022 1:34 PM documented in this encounter [facility] 11-15-2022 Note HNO ID: [id number] Author: Lauren Mccauley, PhD Service: ? Author Type: Netbackup Administrator Type: Progress Notes Filed: 11/21/2022 7:44 AM Note Text: [facility] [place] [facility] Laboratory Vestibular Test Battery Report Name: Dorie Root CCF#: [id number] Date of Service: 11/15/2022 Date of : 1945 Age: [age] year old Referred by: Hema Good MD And is a patient of Juliano Sharma MD Referred for: Evaluation of suspected change in hearing, tinnitus, or balance. Referral documented: In an order in [facility] Instructions: All pretest instructions were completed [...] right side of her head around the oriental orthodox region that occurs very rarely, about once [...] risk. Additional general (more content not included)... [facility] 11-15-2022 Instructions Michela Debra - 11/15/2022 1:48 PM EDT [facility] [place] [facility] For the body [...] Recommendations: * Continue medical follow-up with Juliano Sahrma MD * Consider re-evaluation as medically indicated [...] of Present illness Narrative [facility] [place] [facility] Vestibular Test Battery Report Name: Dorie Root CCF#: [id number] Date of Service: 11/15/2022 Date of : 1945 Age: [age] year old Referred by: Hema Good MD And is a patient of Juliano Sharma MD Referred for: Evaluation of suspected change in hearing, tinnitus, or balance. Referral documented: In an order in [facility] Instructions: All pretest instructions were completed [...] right side of her head around the oriental orthodox region that occurs very rarely, about once [...] vertical, oblique): normal Cover uncover test: normal Rlzbs-pssql-uqwix test: normal Convergence test: normal NECK: Cervical [...] VESTIBULAR MEASURES: Videonystagmography Examination (VNG): CPT codes: 32293, 82850, 75592 Description of Procedure: objective assessment of peripheral [...] right-beating. Temporal profile: intermittent. Symptoms: none. Nystagmus Pearblossom-Hallpike right ear return to sit position: none [...] Video Head Impulse Test (VHIT): CPT code: 80218 Description of Procedure: assessment of the angular [...] of corrective saccades. Rotational Chair: CPT code 15993 Description of Procedure: objective assessment of peripheral [...] regarding this information, please contact me at [phone]. MASOOD Lorenzo Doctor of Audiology (AuD) Solutions Developer This appointment was conducted under the direct supervision of Lauren Mccauley, PhD CCC-A I verify that I have reviewed the history, test results, and interpretation for this patient. Lauren Mccauley, PhD CCC-A Vestibular Netbackup Administrator Director, Vestibular and Balance Disorders Program [facility] [place] copy to: Juliano Sharma MD [address] [place] [address] documented in this encounter [facility] Evaluation + Plan note Future Appointments Appointment Date:07/29/2023 10:40:00 AM Scheduled Provider: Location:[facility] Alfredo Appointment Type:FM Nurse Visit Appointment Date:08/12/2023 01:20:00 PM Scheduled Provider:Srinivasan Lezama MD Location:[facility] Alfredo Appointment Type:FM Open Appointment Date:07/23/2024 11:00:00 AM Scheduled Provider: Location:[facility] Alfredo Appointment Type: Medicare Wellness Subsequent [facility] Evaluation + Plan note Future Appointments Appointment Date:07/31/2023 02:00:00 PM Scheduled Provider: Location:[facility] Alfredo Appointment Type: Nurse Visit Appointment Date:08/12/2023 01:20:00 PM Scheduled Provider:Srinivasan Lezama MD Location:[facility] Alfredo Appointment Type:FM Open Appointment Date:07/23/2024 11:00:00 AM Scheduled Provider: [facility] Type:FM Medicare Wellness [facility] Evaluation note Diagnosis Dizziness- Primary Dizziness and giddiness documented in this encounter [facility]* Diagnosis Dizziness- Primary Dizziness and giddiness Head pains documented in this encounter [facility] note* Diagnosis Ataxia following cerebral infarction- Primary Ataxia, late effect of cerebrovascular disease Dizziness and giddiness Vertigo Dizziness and giddiness documented [facility] [place] Diagnosis Chest pain, unspecified type- Primary SOB (shortness of breath) Shortness of breath documented in this encounter [facility] note* Diagnosis Dizziness and giddiness- Primary Vertigo Dizziness and giddiness [facility] Narrative No data available for this section [facility] No data available for this section [facility] No data available for this section [facility] Outpatient Procedure (Routine) - Authorized Specialty Diagnoses / Procedures Referred By Linda villa Referred To Contact [facility] Diagnoses Ataxia following cerebral infarction Dizziness and giddiness Procedures US CAROTID ARTERIES [facility] DUPLEX SCAN EXTRACRANIAL [place] [address] [place] [address] [facility] [place] [address] [place] [address] Referral ID Status Reason Start Date Expiration Date Visits Requested Visits Authorized [id number] Authorized Auto-Generat ed Referral 12/23/2022 12/23/2023 1 1 * MRI/CT (Routine) - Authorized Specialty Diagnoses / Procedures Referred By Linda villa Referred To Contact MR IMAGING Diagnoses Ataxia following cerebral infarction Vertigo Procedures MRI BRAIN WO IVCON MRI BRAIN BRAIN STEM W/[place] [address] [place] [address] Mr Imaging Referral ID Status Reason Start Date Expiration Date Visits Requested Visits Authorized [id number] Authorized Auto-Generat ed Referral 12/23/2022 01/22/2024 1 1 [facility] for referral (narrative)* Diagnostic Procedure Only (Routine) - Authorized Specialty Diagnoses / Procedures Referred By Linda villa Referred To Contact [facility] FUNCTIONAL IMAGING Diagnoses Chest pain, unspecified type Procedures NM CARDIAC PERF STRESS/PHARM MYOCARDIAL SPECT [place] [address] [place] [address] [facility] [address] [place] [address] Referral ID Status Reason Start Date Expiration Date Visits Requested Visits Authorized [id number] Authorized Auto-Generat ed Referral 04/28/2023 05/27/2024 1 1 * Outpatient Procedure (Routine) - Authorized Specialty Diagnoses / Procedures Referred By Contac t Referred To Contact [facility] [place] Diagnoses Chest pain, unspecified type Procedures ECHO ECHO TTHRC R-T 2D W/WOM-MODE COMPL SPEC&[place] [address] [place] [address] [facility] [address] [place] [address] Referral ID Status Reason Start Date Expiration Date Visits Requested Visits Authorized [id number] Authorized Auto-Generat ed Referral 04/28/2023 04/27/2024 1 1 * Outpatient Procedure (Routine) - Closed Specialty Diagnoses / Procedures Referred By Contac t Referred To Contact [facility] Diagnoses Chest pain, unspecified type Procedures ECG COMPLETE ECG ROUTINE ECG W/LEAST 12 LDS W/I&[place] [address] [place] [address] [facility] [address] [place] [address] Referral ID Status Reason Start Date Expiration Date V isits Requested Visits Authorized [id number] Closed Auto-Generate d Referral 04/28/2023 04/27/2024 1 [...] Diagnoses Dizziness Procedures CONSULT TO NEUROLOGY OFFICE/OUTPATIENT [facility] 60-74 MINUTES Hema Good MD [address] [place] [address] Referral ID Status Reason Start Date Expiration Date Visits Requested Visits Authorized [id number] Pending Review PCP Requested Referral 11/20/2022 11/20/2023 1 1 Additional Source Comments INFORMATION SOURCE (unrecogn ized section and content) DATE CREATED AUTHOR 11/18/2021 [facility] DATE CREATED AUTHOR AUTHOR'S ORGANIZ ATION 02/08/2023 [facility] DATE CREATED AUTHOR AUTHOR'S ORGANIZ ATION 06/18/2023 [facility] DATE CREATED AUTHOR AUTHOR'S ORGANIZ ATION 07/13/2023 [facility] DATE CREATED AUTHOR AUTHOR'S ORGANIZ ATION 08/20/2023 [facility] Center Source Comments (unrecognize d section and [...] or prosecute any alcohol or drug abuse patient.[facility] Teams (unrecognized sec tion and content) [facility] Tech Relationship Specialty Start Date End Date Juliano Sharma MD [address] [id number] PCP - General 06/02/06 [facility] Relationship Specialty Start Date End Date Juliano Sharma MD [address] [id number] PCP - General 06/02/06 [facility] Relationship Specialty Start Date End Date Juliano Sharma MD [address] [id number] PCP - General 06/02/06 [facility] Relationship Specialty Start Date End Date Srinivasan Lezama MD [address] [place] [address] PCP - General Family Medicine 03/24/23 [facility] [employer] Relationship Specialty Start Date End Date Srinivasan Lezama MD [address] [place] [address] PCP - General Family Medicine 03/24/23 [facility] Relationship Specialty Start Date End Date Juliano Sharma MD [address] [place], [place] [id number] PCP - General 06/02/06 03/23/23 Reason for [...] STEM W/[place] [address] [place] [address] [place] [address] Referral ID Status Reason Start Date Expiration Date V isits Requested Visits Authorized [id number] Closed Auto-Generate d Referral 12/23/2022 01/22/2024 1 [...] BE BASED ON THE PRIMARY CLINICAL RECORDS. [employer] provides no warranty or guarantee of the accuracy or completeness of information in this document.
--- NOTE | 2023-09-03 09:18 | US_ITS ---
[address] [address] Patient Name: JASIEL ROOT MRN: [id number] date: 1945 Sex: F Assigned Patient Location: [place] Current Patient Location: [place] Accession/Order Number: [id number] Exam Date: 09/03/2023 10:37 Report Date: 09/03/2023 11:09 At the request of: NOREEN CRUZ Procedure: US carotid duplex BI EXAMINATION: US carotid duplex BI HISTORY: syncope COMPARISON: No relevant comparison available. TECHNIQUE: Duplex Doppler ultrasound analysis of carotid and vertebral arteries. . Bilateral carotid arterial duplex examination was performed using B-mode, color flow and spectral analysis. Carotid stenosis is reported according to validated velocity parameters, similar to NASCET criteria. FINDINGS: RIGHT CAROTID ARTERY Mild atherosclerotic plaque Subclavian: PSV: 194.7 cm/s cm/s EDV: 0.0 cm/s cm/s CCA: Prox: PSV: 117.3 cm/s cm/s EDV: 9.0 cm/s cm/s Mid: PSV: 79.7 cm/s cm/s EDV: 8.5 cm/s cm/s Distal: PSV: 77.1 cm/s cm/s EDV: 6.0 cm/s cm/s BULB: PSV: 49.4 cm/s cm/s EDV: 7.5 cm/s cm/s ICA: Prox: PSV: 76.4 cm/s cm/s EDV: 13.6 cm/s cm/s Mid: PSV: 84.2 cm/s cm/s EDV: 16.0 cm/s cm/s Distal: PSV: 95.2 cm/s cm/s EDV: 16.0 cm/s cm/s ECA: PSV: 87.5 cm/s cm/s EDV: 7.2 cm/s cm/s VERTEBRAL: PSV: 34.6 cm/s cm/s EDV: 0.0 cm/s cm/s, antegrade ICA/CCA ratio: PSV: 1.2 EDV: 1.9 LEFT CAROTID ARTERY Mild atherosclerotic plaque Subclavian: PSV: 184.9 cm/s cm/s EDV: 0.0 cm/s CCA: Prox: PSV: 105.6 cm/s cm/s EDV: 13.7 cm/s Mid: PSV: 86.2 cm/s cm/s EDV: 11.1 cm/s Distal: PSV: 66.3 cm/s cm/s EDV: 10.2 cm/s BULB: PSV: 58.9 cm/s cm/s EDV: 8.4 cm/s ICA: Prox: PSV: 65.5 cm/s cm/s EDV: 13.8 cm/s Mid: PSV: 83.1 cm/s cm/s EDV: 14.9 cm/s Distal: PSV: 97.4 cm/s cm/s EDV: 9.5 cm/s ECA: PSV: 80.8 cm/s cm/s EDV: 0.0 cm/s VERTEBRAL: PSV: 60.0 cm/s cm/s EDV: 0.0 cm/s , antegrade ICA/CCA ratio: PSV: 1.1 EDV: 0.8 US/US carotid duplex BI IMPRESSION: 0-49% flow stenosis bilateral internal carotid arteries Spectral Doppler US Thresholds (Reference: Chinedu EG, et al. Radiology 2000; 214:247-252) Stenosis (%) PSV (cm/sec) VICA/VCCA 0-49 <150 <2.5 50-69 150-225 2.5-4.0 >70 >225 >4.0 Electronically authenticated by: AN BEVERLY Date: 09/03/2023 11:09
--- NOTE | 2023-09-03 09:22 | P.HP_ITS ---
<Statement entered by Nelson Burton MD - 09/03/23 20:41> Patient seen and examined, agree with assessment and plan below. Presented after syncopal episode most likely related to dehydration. Feels much better after IV fluids. Echo and carotid US normal. Diagnosis: 1. Syncope 2. Dehydration 3. ASHISH 4. HTN H&P: HPI History of Present Illness Chief complaint: DIZZY, SYNCOPE Narrative: 09/03/23 0900 This is an 78-year-old female patient with a past medical history as outlined below including vertigo (following at [facility]), hypertension, asthma, and history of rheumatic fever as a child; who presented to the ED last night complaining of an acute syncopal episode. The patient had been traveling home from [facility] in [place] at yesterday afternoon. During a stop on the trip the patient experienced a mechanical trip and fall resulting in right ankle/foot pain, swelling, and bruising. She presented to a local ED and was diagnosed with a chipped bone and placed in a splint and discharged. They arrived home around 11:00 last night and during the process of unloading the patient suddenly complained of a frontal headache and then became unresponsive and syncopal. She was lowered to the floor by her spouse and after 1 to 2 minutes the patient consciousness has no memory of events between complaining of a headache and chair after awakening. EMS was called and she presented to the ED for further evaluation. Workup in the ED revealed a mild worsening of her renal function from baseline and dehydration. (Renal function did not reach the threshold of ASHISH.) She was mildly hypokalemic (3.2) and had an elevated D-dimer (1.38). Cardiac enzymes, urinalysis, and lactic acidosis within normal limits. A CT of the head was unremarkable. A CTA of the chest was negative for a PE but did note a non- specific nodule in the RUL and recommend CT follow up in 3 months. She was treated with PO KCL supplementation and IV fluids and was admitted to observation by the hospitalist service early this morning. At the time of my exam the patient is sitting on the side of the bed eating her breakfast. She is awake and alert and denies any acute complaints. She reports longstanding recent history of vertigo that she follows with [facility] for. No acute abnormalities were identified on [facility]'s previous workup for her vertigo. She denies any dizziness associated with her trip and fall earlier yesterday afternoon. She also denies noting any dizziness prior to her syncopal episode. She admits that she had not had any significant food or fluids for the 6 hours prior to her syncopal event. She feels at her normal baseline at this time. We will obtain a bilateral carotid ultrasound and a 2D echo to assess for other etiologies of her syncope but we clinically suspect dehydration at this time. If the above studies are unremarkable the patient will likely be discharged later this afternoon as long as her condition remains at her baseline. ADDENDUM 1500: Carotid US unremarkable. Prelim report from 2D Echo unremarkable but final cardiology interpretation is still pending. Pt remains at her baseline and denies any acute complaints. Will D/C home in stable condition and recommend follow up with her PCP in 3-5 days. A 7 day Holter monitor was ordered at discharge with results to be sent to her PCP. Review of Systems ROS Status of ROS 10 or more systems reviewed and unremark able except as noted in history and below [facility] Medical History (Updated 09/03/23 @ 09:28 by Nelson Burton MD) Asthma ?J45.909 - Unspecified asthma, uncomplicated (ICD-10) Constipation ?K59.00 - Constipation, unspecified (ICD-10) Chest pain ?R07.9 - Chest pain, unspecified (ICD-10) Abrasion of elbow ?S50.319A - Abrasion of unspecified elbow, initial encounter (ICD-10) Contusion of face ?S00.83XA - Contusion of other part of head, initial encounter (ICD-10) Facial laceration ?S01.81XA - Laceration without foreign body of other part of head, initial encounter (ICD-10) Closed head injury ?S09.90XA - Unspecified injury of head, initial encounter (ICD-10) Cataract ?H26.9 - Unspecified cataract (ICD-10) Rheumatic fever ?I00 - Rheumatic fever without heart involvement (ICD-10) High blood pressure ?I10 - Essential (primary) hypertension (ICD-10) Surgical History (Updated 09/03/23 @ 09:19 by Pat Caballero RN) H/O colonoscopy ?Z98.890 - Other specified postprocedural states (ICD-10) H/O tubal ligation ?Z98.51 - Tubal ligation status (ICD-10) Hx of tonsillectomy ?Z90.89 - Acquired absence of other organs (ICD-10) Social History Smoking status: Never smoker Highest level of school completed/degree received: 12th grade, no diploma Meds Home Medications and Allergies Home Medications Medication Instructions Recorded Confirmed Type albuterol sulfate 90 mcg/actuation 2 puff inhalation Q4H PRN 03/19/23 09/03/23 History aerosol inhaler shortness of breath or wheezing budesonide-formoterol HFA 80 2 puff inhalation Q12H 03/19/23 09/03/23 History mcg-4.5 mcg/actuation aerosol inhaler (Symbicort) lisinopril 10 1 tab PO DAILY 03/19/23 09/03/23 History mg-hydrochlorothiazide 12.5 mg tablet hydroxyzine HCl 10 mg tablet 10 mg PO QID PRN anxiety 09/03/23 09/03/23 History topiramate 50 mg tablet 50 mg PO .qhs 09/03/23 09/03/23 History Allergies Allergy/AdvReac Type Severity Reaction Status Date / Time No Known Drug Allergies Allergy Verified 03/21/23 03:04 Exam Constitutional Vital Signs, click to edit/add: Last Vital Signs Temp 97.8 F 09/03/23 01:11 Pulse 65 09/03/23 08:04 Resp 16 09/03/23 07:48 BP 157/66 H 09/03/23 08:18 Pulse Ox 96 09/03/23 07:48 O2 Del Method Room Air 09/03/23 07:48 Common normals: no apparent distress, oriented x3, alert and well nourished General appearance: cooperative Orientation/consciousness: Yes awake HENIA Common normals: normocephalic, head/scalp atraumatic, hearing grossly normal bilaterally, external nose normal and moist oral mucous membranes Eye Common normals: PERRL, EOMs intact bilaterally, conjunctivae normal and no scleral icterus Alignment: alignment normal Eyelid: eyelids normal Neck & C-Spine Common normals: full ROM, supple and no JVD Chest Common normals: inspection of chest normal Chest: symmetrical chest wall rise Respiratory Common normals: normal respiratory effort, no retractions, no use of accessory muscles and clear to auscultation bilaterally Effort & inspection: able to speak in complete sentences Cardio Common normals: no JVD, regular rate, regular rhythm, S1 normal heart sound, S2 normal heart sound, no gallops, no clicks, no rub and peripheral pulses 2+ throughout Heart sounds: murmur (HSM 2/6) GI Common normals: Normal to inspection, nondistended, normoactive bowel sounds present, soft to palpation, non-tender, no hepatosplenomegaly, no masses and no bruits Bladder/kidney exam: bladder normal to palpation Bimanual exam- vagina & uterus: bladder normal to palpation Back & Pelvis Common normals: thoracic and lumbar spine normal to inspection Extremity Common normals: normal capillary refill and no pedal edema General: normal exam except as noted; no clubbing and no cyanosis Right lower extremity: foot and digits (splint in place) Neuro Ammy Coma Scale: GCS not evaluated Common normals: CN's II-XII intact bilaterally, moves all extremities, no focal motor deficits and no sensory deficits noted Speech: speech normal Motor exam: strength 5/5 throughout Psych Common normals: mental status grossly normal, thought process normal, affect normal and activity/motor behavior normal Results Labs Labs: Short CBC 09/03/23 Range/Units 01:36 WBC 9.1 (4.0-11.0) 10^3/uL Hgb 14.5 (12.0-16.0) g/dL Hct 44.1 (36.0-48.0) % Plt Count 321 (150-450) 10^3/uL BMP 09/03/23 01:36 Sodium 142 Potassium 3.2 L Chloride 103 Carbon Dioxide 27.7 BUN 19.0 H Creatinine 1.17 H Glucose 131 H Calcium 9.7 Liver Function 09/03/23 Range/Units 01:36 Total Bilirubin 0.4 (0.2-1.0) mg/dL AST 19 (15-37) U/L ALT 28 (14-59) U/L Alkaline Phosphatase 80 (46-116) U/L Albumin 3.6 (3.4-5.0) g/dL Urine 09/03/23 Range/Units 04:30 Urine Color Lt. yellow (YELLOW) Urine Clarity Clear (CLEAR) Urine pH 5.5 (5.0-9.0) Ur Specific [place] <=1.005 A (1.005-1.025) Urine Protein Negative (NEG/TRACE) mg/dL Urine Glucose (UA) Negative (NEGATIVE) mg/dL Pulse Oximetry Attestation: I have reviewed the pertinent pulse oximetry results. Imaging CT scan - head: Attestation: I have reviewed the pertinent imaging results. Radiologist's impression: IMPRESSION: 1. No acute intracranial abnormality. No hemorrhage or mass effect. 2. Atrophy +/- communicating hydrocephalus. The appearance of ventricles is unchanged as compared to the prior study. CTA Chest: Attestation: I have reviewed the pertinent imaging results. Radiologist's impression: IMPRESSION: There is no pulmonary embolus. There is mild atherosclerotic plaque along the thoracic and proximal abdominal aorta. There is no aneurysm or dissection of the thoracic aorta. There is no consolidation or infiltrates. There is moderate irregular pleural-based parenchymal scarring at both lung apices. There is a 0.8 cm noncalcified pleural-based nodule lateral right upper chest (series 4 image 29) which may be associated with the pleural parenchymal scarring however a CT examination of the chest in 3 months is recommended to confirm stability. There are no pathologically enlarged lymph nodes. Mild diffuse circumferential thickening of the esophageal wall which can be associated with an esophagitis or sequelae of chronic gastroesophageal reflux. Few additional findings as described in the body the report. Carotid Doppler: Attestation: I have reviewed the pertinent imaging results. Radiologist's impression: IMPRESSION: 0-49% flow stenosis bilateral internal carotid arteries Spectral Doppler US Thresholds (Reference: Chinedu EG, et al. Radiology 2000; 214:247-252) Stenosis (%) PSV (cm/sec) VICA/VCCA 0-49 <150 <2.5 50-69 150-225 2.5-4.0 >70 >225 >4.0 Assessment and Plan Assessment and Plan (1) Syncope and collapse: Assessment and Plan: ACUTE * Adm observation * Suspect 2/2 dehydration as all other work up in the ED was benign and the pt admits to poor oral intake during travel yesterday * Obtain Bilat carotid duplex and 2D Echo to r/o other possible etiologies of acute syncope * Pt denies dizziness but admits to headache just prior to syncopal episode * Denies any further symptoms other than mild, intermittent, chronic vertigo * D/C home if further work up is unremarkable (2) Dehydration, mild: Assessment and Plan: ACUTE * NS 1 liter bolus given in ED * Continue NS IVF at 125/hr for now. * Encourage PO fluid intake (3) Hypertension, essential, benign: Assessment and Plan: CHRONIC * Continue home lisinopril-HCTZ tomorrow (4) Asthma: Assessment and Plan: CHRONIC * Continue home Symbicort and albuterol HFA PRN
[2023-09-03] MEDS: ENOXAPARIN SODIUM 40 MG/0.4 ML SYRINGE SUBQ (10:04)
--- NOTE | 2023-09-03 10:18 | CM.NOTE ---
Rounding with Dr. Burton. Discussed carotid ultrasound. Pt. sitting up on edge of bed conversing with Dr. Burton. Pt. has soft splint on right ankle. Continue to follow for discharge needs.
[2023-09-03] MEDS: LISINOPRIL 10 MG TABLET PO (10:34)
[2023-09-03] MEDS: HYDROCHLOROTHIAZIDE 25 MG TABLET 12.5 MG PO (10:36)
--- NOTE | 2023-09-03 10:44 | CM.NOTE ---
Medicare Outpatient Observation Notice discussed with pt, pt verbalizes understanding and signs paper. Original given to pt and copy placed on pt's chart.
--- NOTE | 2023-09-03 11:10 | PC.NURSE ---
Orthostatic blood pressures performed per order. Patient reports slight dizziness while lying down and states that while orthostatic BPs were performed that the dizziness increased. States that it feels as if she is spinning versus the room. Patient was requiring additional support to stand. Deborah Christie COMMERCIAL CREDIT SPECIALIST was advised.
--- NOTE | 2023-09-03 15:32 | CA_ITS ---
[facility] Test Date: 2023-09-29 Pat Name: JASIEL ROOT Department: Room: 2041 Gender: Female Breaker Operator: : 1945 Requested By: SRINIVASAN LEZAMA Order Number: [id number] Reading MD: ALPHONSO FUENTES Interpretive Statements Predominant rhythm is sinus with average rate of 59 bpm Tachycardia - max rate of 131 bpm (PSVT) - 1 episode of PSVT w/ duration of 10 beats - longest episode of 2min 30sec with rates between 111-117 bpm Bradycardia (53% burden) - min rate of 35 bpm, occurring during sleep - longest episode of 2h 13min 52sec with rates between 42-48 bpm Ventricular ectopy - 695 total (<1%) - 6 couplets - 689 PVC Patient triggered events: 4 - associated with lightheadedness, SOB - associated with sinus bradycardia w/ rate of 46 bpm, remainder NSR Impression: Predominant rhythm is sinus with average rate of 59 bpm Fastest rate of 131 (PSVT) and slowest rate of 35 bpm 689 PVC and 6 couplets No atrial fib No blocks or pauses Electronically Signed On 09-30-2023 7:50:23 EST by ALPHONSO FUENTES
--- NOTE | 2023-09-04 14:06 | CM.DCFOLLOWU ---
First attempt at discharge follow up call today, no answer. Unable to reach patient at this time.
--- NOTE | 2023-09-05 11:33 | CM.DCFOLLOWU ---
Person spoke with: patient How are you feeling? a lot better How is your pain? no real pain, just swelling and bruising Did you understand your discharge instructions? yes Do you have any questions about your discharge instructions? no Were you given any prescriptions at discharge? no Were you able to get your prescriptions filled? n/a Do you understand how to take your medications as ordered? yes Do you have any questions about your follow up appointment and do you plan to keep your follow up appointment? Reminded patient of follow up appointment with Dr. Hollins on 09/08 at 11am. Is there anything else that you would like to discuss? Pt. voiced notable swelling to ankle area. From conversation does not sounds like patient is keeping it elevated at all and is not icing it. Encouraged patient to elevate on 2-3 pillows and to ice for 20 minutes every few hours. Pt. voiced understanding. Questions/Comments/Concerns/Other: none
== END 2023-09-03 17:05 | disposition home or self-care (01) ==
LOC: ER 01:47 → MS 07:33
PROVIDERS: Admitting Provider Family Medicine; Emergency Provider Emergency Medicine; PCP Family Medicine; Visit Provider Family Medicine
DX: R55 Syncope and collapse (principal); E86.0 Dehydration; N17.9 Acute kidney failure, unspecified; I10 Essential (primary) hypertension; J45.909 Unspecified asthma, uncomplicated; Z79.899 Other long term (current) drug therapy; Z98.51 Tubal ligation status; Z98.890 Other specified postprocedural states
CPT/HCPCS: 36415; 70450; 71275; 80053; 81001; 83605; 84484; 85025; 85378; 93005; 93246; 93306; 93880; 96360; 96361; 96372; 99285; G0378; J1650; Q9967

== ENCOUNTER 2023-09-11 11:09 | Outpatient (OUT) | payer MEDICARE, SELFPAY ==
--- NOTE | 2023-09-11 | XR_ITS ---
The [address] [address] Patient Name: JASIEL ROOT MRN: [id number] date: 1945 Sex: F Assigned Patient Location: [facility] Current Patient Location: [facility] Accession/Order Number: [id number] Exam Date: 09/11/2023 11:30 Report Date: 09/11/2023 12:07 At the request of: GERRY PRATT Procedure: XR foot RT min 3V PROCEDURE: XR ankle RT min 3V, XR foot RT min 3V COMPARISON: None. HISTORY: RIGHT ANKLE INJURY FINDINGS: BONES:No acute fracture or dislocation of the foot or ankle. Mild enthesopathic spurring Achilles insertion of the calcaneus. Moderate hallux valgus. Moderate osteoarthropathy first metatarsal-phalangeal joint SOFT TISSUES:Moderate lateral ankle soft tissue swelling EFFUSION:None visible. OTHER: Negative. XR/XR foot RT min 3V IMPRESSION: Lateral ankle soft tissue swelling No acute fracture or dislocation of the foot or ankle Electronically authenticated by: AN BEVERLY Date: 09/11/2023 12:07
--- NOTE | 2023-09-11 | XR_ITS ---
The [address] [address] Patient Name: JASIEL ROOT MRN: [id number] date: 1945 Sex: F Assigned Patient Location: [facility] Current Patient Location: [facility] Accession/Order Number: [id number] Exam Date: 09/11/2023 11:30 Report Date: 09/11/2023 12:07 At the request of: GERRY PRATT Procedure: XR ankle RT min 3V PROCEDURE: XR ankle RT min 3V, XR foot RT min 3V COMPARISON: None. HISTORY: RIGHT ANKLE INJURY FINDINGS: BONES:No acute fracture or dislocation of the foot or ankle. Mild enthesopathic spurring Achilles insertion of the calcaneus. Moderate hallux valgus. Moderate osteoarthropathy first metatarsal-phalangeal joint SOFT TISSUES:Moderate lateral ankle soft tissue swelling EFFUSION:None visible. OTHER: Negative. XR/XR ankle RT min 3V IMPRESSION: Lateral ankle soft tissue swelling No acute fracture or dislocation of the foot or ankle Electronically authenticated by: AN BEVERLY Date: 09/11/2023 12:07
--- OUTSIDE RECORDS SUMMARY | 2023-09-11 11:13 | XMS_ITS | CCD ---
Author Name Unknown Address [address] [place] [address] Organization [facility] Team Providers Care Remedial Teacher Name Role Phone Juliano Sharma MD Primary Care Provider SHARMA ., DR JULIANO Youngblood Primary Care Unavailable SHRAMA ., DR JULIANO Youngblood Admitting Unavailable SHARMA [...] Attending Unavailable MISC, DR SOLER Admitting Unavailable THOMASBORO, DR AN [employer] Unavailable SHARMA ., [...] Unavailable Srinivasan Lezama MD Primary Care Provider [phone] RACHAEL CHANEY Referring Unavailable SRINIVASAN LEZAMA Primary [...] Unavailable SESE, ISAAC T Referring Unavailable SHARMAJULIANO MEERA Primary Care Unavailable SESE, ISAAC T Attending Unavailable SHARMAJULIANO LACHINE Primary Care Unavailable LAUREN MCCAULEY Attending Unavailable SHARMA, JULIANO MEERA Primary Care Unavailable WATTAR, YAIR R Attending Unavailable ROSS, SRINIVASAN E Primary Care Unavailable SESE, ISAAC T Attending Unavailable SESE, ISAAC T Referring Unavailable ROSS, SRINIVASAN E Primary Care Unavailable Edith DOS SANTOS, Juliano meera Primary Care Provider HUYEN ISAAC T Referring Unavailable SHARMA, JULIANO DAY Primary Care Unavailable WATTAR, YAIR R Referring Unavailable LISE SRINIVASAN E Primary Care Unavailable Srinivasan Lezama Primary Care Physician Srinivasan Lezama Attending Unavailable Srinivasan Lezama E. Attending Unavailable ArronRoxane L Attending Unavailable Arron, Roxane Connell Attending Unavailable SHARMAJULIANO CASTRO Attending Unavailable Arron, Roxane L Attending Unavailable Arron, Roxane L Attending Unavailable Srinivasan Lezama E. Attending Unavailable Srinivasan Lezama E. Attending Unavailable Srinivasan Lezama E. Attending Unavailable Arron, Roxane L Admitting Unavailable Arron, Roxane L Attending Unavailable Srinivasan Lezama E. Attending Unavailable Srinivasan Lezama E. Attending Unavailable Srinivasan Lezama E. Attending Unavailable Arron, Roxane L Admitting Unavailable Arron, Roxane L Attending Unavailable Srinivasan Lezama E. Admitting Unavailable Srinivasan Lezama E. Attending Unavailable Srinivasan Lezama E. Referring Unavailable Marry Mazariegos Attending Unavailable Srinivasan Lezama E. Attending Unavailable Srinivasan Lezama EZuleika Attending Unavailable Allergies Allergy Classification Reported Allergen(s) Allergy Type Date of Onset Reaction(s) Facility (1 source) No Known Medication Allergies; 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: [No Known Medication Allergies] Propensity to adverse reactions (disorder) [facility] Repository Medications Current Medications Medication Drug [...] Daily, # 90 cap(s), Refills(s) 1, Pharmacy: [facility]/pharmacy #[id number], 155, cm, 03/25/23 8:03:00 EDT, Height/Length [...] Comment on above: Take 1 capsule by [facility] daily at bedtime. perflutren lipid microspheres 1.3 [...] INHALE 2 PUFFS BY MOUTH TWICE DAILY, [facility], 155, cm, 04/02/23 9:19:00 EDT, Height/Length Dosing, [...] Start: 03-25-2023 take 1 capsule by mo [facility] at bedtime topiramate 25 mg Tab 25 mg = 1 cap(s), Oral, Bedtime, Refills(s) 0 Start Date: 03/25/23 Status: Ordered Start: 03-24-2023 End: 06-22-2023 take 1 tablet by mouth once daily at bedtime topiramate (TOPAMAX) 25 mg tablet Take 1 tablet by mouth daily at bedtime. 30 tablet 2 03/24/2023 06/12/2023 Discontinued Comment on above: Take 1 tablet by jeramy daily at bedtime. Vitamin B12 Methylcobalamin 5000 [...] 5 unt oral capsule (3 sources) Coenzyme E17-Fufbpdd E 100-5 mg-unit cap 2 gels Orally [...] Essential (primary) hypertension; 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: [Essential hypertension] Onset: 09-30-04-30-2023 Chronic Headache; including migraine (1 source) Headache; [...] 05-07-2022 Episodic Other aftercare (1 source) Other correction (current) drug therapy; 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: [OTH RETIREMENT CURRENT DRUG THERAPY] Onset: 05-10-2022 Episodic Other [...] Name Value Interpretation Reference Range Facil ity Ambulatory Visit Summaryon 0 09-08-2023 Ambulatory Visit Summary DORIE ROOT :1945 Visit Date:09/08/2023 Ambulatory Visit Instructions Your Diagnosis Hospital discharge follow-up Syncope Foot fracture, right Hypokalemia Body mass index (BMI) of 19.0-19.9 in adult Nonsmoker Your Care Team Attending Physician - Srinivasan Lezama MD Primary Care Physician - Srinivasan Lezama MD This Is Your Medications List potassium chloride (Potassium Chloride (Xnp-Wetx-Dgf M20) 20 mEq oral tablet, extended release) Contact prescribing physician if questions or concerns albuterol (Albuterol (Eqv-ProAir HFA) 90 mcg/inh inhalation aerosol) amoxicillin budesonide-formotero l (Symbicort 80/4.5 inhalation aerosol with adapter) cholestyramine (Prevalite 4 g/5.5 g oral powder for reconstitution) hydrOXYzine (hydrOXYzine hydrochloride 10 mg Tab) hydrochlorothiazide- lisinopril linaclotide (Linzess 72 mcg oral capsule) methylcobalamin (Vitamin B12 Methylcobalamin 5000 mcg sublingual tablet) multivitamin with minerals (Multiple Vitamins with Zinc oral capsule) topiramate (topiramate 25 mg Tab) ubiquinone (CoQ10 100 mg oral capsule) wheat dextrin (Benefiber) Procedures Performed Colonoscopy (10/01/2021), Dilatation and curettage: routine. Discharge Vitals Temperature (Temporal Artery) 37.0 ?C Heart Rate (Peripheral) 68 Respiratory Rate 16 Blood Pressure 150/72 Height 158 cm Height 62 in Weight 49.9 kg Weight 109.78 lb BMI 19.99 What to do next Scheduled Follow-Up Appointments Friday 10:00 AM EST With: Guille DOS SANTOS, Hermelinda Ramirez Where: [facility] Invalid Interpretation Code [address] [place] [address]- \.br\ Friday 11:00 AM EST \.br\ With:\.br\ Where: [facility] Family Medicine [facility] Medicine Office/Clini c Noteon 09-08-2023 Family Medicine Office/Clinic Note HPI Staff Dorie is an 78 year old female presenting for hospital follow up Was in [place] on way home took a fall and diagnosed severe sprain, small chip and wearing a cast shoe. After being home she collapsed and went unconscious she doesn't recall any of that Hospital: [facility] Admission date: 09/03/23 1am Discharge date: 09/03/23 5pm Symptoms the patient presented with: dizzy, syncope Current concerns: in tomorrow also for Er follow up so that needs canceled, has routine f/u 09/15 does she need to keep it or will you take care of today. Has appt w/ GI 10/08 but she doesn't know his name flu: UTD History of Present Illness Dorie Root, an 78-year-old female, is here for a post-discharge follow-up consultation. She is accompanied by an adult male. The patient was recently admitted to [facility] in [place], [place], and was discharged on 09/05/2023. She experienced syncope due to inadequate food and fluid intake. She was advised to consume 8 glasses of water daily, a regimen she has been adhering to. She has consumed 2 glasses of water so far today and is conscientious about monitoring her fluid intake. Her coffee consumption has decreased. The accompanying adult male reports that the patient has been experiencing lapses in memory. She has been on a Prevagen regimen for several months to address this issue. She particularly struggles with recalling names. Review of Systems PHQ Score Initial Depression Screen Score: 1 SCORE Physical Exam Vitals & Measurements T: 37.0 ?C(Temporal Artery) HR: 68(Peripheral) RR: 16 BP: 150/72 SpO2: 99% HT: 62 in HT: 158 cm WT: 49.9 kg WT: 109.78 lb BMI: 19.99 General: alert, no acute distress Cardiovascular: regular rate and rhythm, normal peripheral perfusion Respiratory: Lungs CTA, respirations non labored Extremities: no deformity, no trauma. Boot is on the right foot. Neurological: oriented x 4, LOC appropriate for age, CN II-XII intact, motor strength equal & normal bilaterally, speech normal Assessment/Plan Total time spent preparing for the encounter, evaluating and assessing the patient, documenting the visit, and ordering appropriate follow-up work was 40 minutes. 1. Hospital discharge follow-up (Z09: Encounter for follow-up examination after completed treatment for conditions other than malignant neoplasm) Reviewed ER note. No TCM was done, so discuss that with our TCM coordinator. We will continue to monitor. No needs other than a follow-up with podiatry. 2. Syncope (R55: Syncope and collapse) Patient is doing well now. No symptoms. Was secondary to dehydration from the hospital note. This is something that we have been discussing for several months as the patient has been dehydrated and patient now is taking this seriously. We will continue to monitor. 3. Foot fracture, right (S92.901A: Unspecified fracture of right foot, initial encounter for closed fracture) Patient needs to follow up with podiatry. Patient does have a boot on today, but do not believe it is the right one for the fracture. Patient will need to get x-rays done so that the lighting technician can see them. We will have the lighting technician order as he has got an x-ray machine in his office. 4. Hypokalemia (E87.6: Hypokalemia) We will refill the patient's medication. On reviewing of patient's labs in the hospital, patient's potassium was a little low, so we will give her another 5 days of potassium. 5. Body mass index (BMI) of 19.0-19.9 in adult (Z68.1: Body mass index [BMI] 19.9 or less, adult) BMI education given. 6. Nonsmoker (Z78.9: Other specified health status) Please continue not to smoke. Portions of this record may have been created with voice recognition artificial intelligence software, specifically [employer], [employer] and or [employer]. Substitutions may have occurred due to the inherent limitations of voice recognition and artificial intelligence software. ATTESTATION: Documentation services were performed after patient or guardian consented to allow [employer] to record this visit. JAIRON equipment validation specialist and provider reviewed before signing. JAIRON: Sneha Jett. Follow-up No qualifying data available We will see the patient back in 1 month for follow-up on chronic issues. Problem List/Past Medical History Ongoing ASCVD (arteriosclerotic cardiovascular disease) Asthma BMI 21.0-21.9, adult Chest pain Facial laceration Foot fracture, right Hospital discharge follow-up Hypokalemia Irritable bowel syndrome with constipation Lung nodule Non-smoker Osteopenia Osteoporosis Peripheral arterial disease Primary hypertension Shortness of breath Stress Syncope Historical No qualifying data Procedure/Surgical History Colonoscopy (10/01/2021), Dilatation and curettage: routine. Medications Albuterol (Eqv-ProAir HFA) 90 mcg/inh inhalation aerosol, 2 puff(s), Inhalation, q6hr amoxicillin, 2000 mg, Oral, Once, PRN, Self D (more content not included)... [facility] Comment on above: Result Comment: Elec tronically Signed By: Lise DOS SANTOS, Srinivasan Milligan\.br\Date and Time Signed: 09/08/23 18:08 EST\.br\Electronically Co-Signed By: Sneha Jett\.br\Date and Time Co-Signed: 09/08/23 13:53 EST Discharge Documentationon Discharge Documentation [id number] #1.00TIFF [facility] ED Note-Physicianon 09-03-19 ED Note-Physician [id number] #1.00TIFF [facility] RAD - CT Reporton 09-03-2023 RAD - CT Report [id number] #1.00TIFF [facility] RAD - CT Report [id number] #1.00TIFF [facility] RAD - Ultrasound Reporton RAD - Ultrasound Report [id number] #1.00TIFF [facility] Family Medicine Office/Clini c Noteon 08-19-2023 Family [...] cardiovascular disease) (I25.10: 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 Substitutions may have occurred due to the inherent limitations of voice recognition and artificial intelligence software. Documentation services were performed after patient or guardian consented to allow [employer] to record this visit. JAIRON equipment validation specialist and provider reviewed before signing. JAIRON: Laina Tucker. Follow-up No qualifying data available Problem List/Past Medical History O (more content not included)... Normal [facility] Comment on above: Result Comment: Elec [...] MD Primary Care Physician - Srinivasan Lezama MD. This Is Your Medications List hydrOXYzine (hydrOXYzine [...] With: Lise DOS SANTOS, Srinivasan Milligan Where: [facility] [address] [place] [address]- \.br\ Medications\.br\ What How Much When Why Instructions\.br\ New hydrOXYzine (hydrOXYzine hydrochloride 10 mg Tab) 1 Tablets By Mouth 4 times a day as needed for for anxiety Pickup at [facility]/pharmacy #[id number]\.br\ Unchanged albuterol (Albuterol (Eqv-ProAir HFA) 90 mcg/ [...] \.br\ Pharmacy Information\.br\ [id number]: [address], [place] [id number] [phone]\.br\ Allergies\.br\ No Known Allergies\.br\ No Known Medication [...] for choosing us for your care.\.br\ \.br\ [facility] Pre-Visit Planningon 023 Pre-Visit Planning - From: Gita Contreras To: Lise DOS SANTOS, Srinivasan Milligan; Sent: 08/08/2023 12:04:31 EST Subject: Pre-Visit Planning Due Date/Time: 08/08/2023 12:04:00 EST Caller Name: DORIE ROOT; Caller Number: H Sd Dr. Lezama. During a pre-visit planning chart [...] feel free to contact me at extension [phone]. Thank you and have a great weekend! Gita Contreras LPN - From: Srinivasan Lezama MD To: Gita Contreras; Sent: 08/11/2023 08:51:48 EST Subject: RE: Pre-Visit Planning Caller Name: DORIE ROOT; Caller Number: H - Please add PAD Normal [address] [place] [address] Dexa Scanson 08-04-2023 Dexa Scans [id number] #1.00TIFF Normal [facility] Dexa Scans [id number] #1.00TIFF Normal [facility] Ambulatory Visit Summaryon 1 09-30-2022 Ambulatory [...] With: Lise DOS SANTOS, Srinivasan Milligan Where: [facility] Normal [address] [id number]- \.br\ Medications\.br\ What How Much When Why [...] for choosing us for your care.\.br\ \.br\ [facility] CMPon 07-31-2023 Albumin [Mass/Vol] 4.2 g/dL Normal 3.3-5.0 [facility] Comment on above: Performed By: #### 1 [id number], [id number] ####[address] [place] [address] Albumin/Globulin (S) [Mass conc ratio] 1.4 Normal 1.1-2.2 [facility] Comment on above: Performed By: #### 1 [id number], 2478553 ####[facility] [address] [place] [address] ALP [Catalytic activity/Vol] 63 Int._Unit/L Normal 21-98 [facility] Comment on above: Performed By: #### 1 [id number], 0904747 ####[facility] [address] [place] [address] ALT No additional P-5'-P [Catalytic activity/Vol] 23 Int._Unit/L Normal 6-46 [facility] Comment on above: Performed By: #### 1 5174943, 3240306 ####[facility] [address] [place] [address] Anion gap [Moles/Vol] 12 mmol/L Normal 6-16 [facility] Comment on above: Performed By: #### 1 0579580, 4033808 ####[facility] [address] [place] [address] AST [Catalytic activity/Vol] 31 Int._Unit/L Normal 5-43 [facility] Comment on above: Performed By: #### 1 3345647, 2093582 ####[facility] [address] [place] [address] Bilirubin [Mass/Vol] 0.4 mg/dL Normal 0.0-1.1 [facility] Comment on above: Performed By: #### 1 1581831, 0204371 ####[facility] [address] [place] [address] Calcium [Mass/Vol] 9.5 mg/dL Normal 8.9-11.1 [facility] Comment on above: Performed By: #### 1 9650482, 3661108 ####[facility] [address] [place] [address] Chloride [Moles/Vol] 102 mmol/L Normal 101-111 [facility] Comment on above: Performed By: #### 1 0974251, 3531504 ####[facility] [address] [place] [address] CO2 [Moles/Vol] 24 mmol/L Normal 21-31 [facility] Comment on above: Performed By: #### 1 1023978, 1498487 ####[facility] [address] [place] [address] Creatinine [Mass/Vol] 0.8 mg/dL Normal 0.5-1.3 [facility] Comment on above: Performed By: #### 1 4039161, 8872374 ####[facility] [address] [place] [address] Globulin (S) [Mass/Vol] 2.9 g/dL Normal 1.4-4.0 [facility] Comment on above: Performed By: #### 1 3968805, 9132427 ####[facility] [address] [place] [address] Glucose [Mass/Vol] 142 mg/dL Normal 55-199 [facility] Comment on above: Result Comment: If t his glucose result represents a fasting glucose, interpretation should refer to the following reference range: 55-99 mg/dL Performed By: #### 1 4126337, 6312806 ####[facility] [address] [place] [address] Potassium [Moles/Vol] 3.1 mmol/L Low 3.5-5.3 [facility] Comment on above: Performed By: #### 1 4164193, 4366265 ####[facility] [address] [address] Protein [Mass/Vol] 7.1 g/dL Normal 6.0-7.8 [facility] Comment on above: Performed By: #### 1 8266252, 4476241 ####[place] [address] Sodium [Moles/Vol] 135 mmol/L Normal 135-145 [facility] Comment on above: Performed By: #### 1 8023602, 7791040 ####[facility] [address] [place] [address] Urea nitrogen [Mass/Vol] 17 mg/dL Normal 5-21 [facility] Comment on above: Performed By: #### 1 7273774, 1040269 ####[facility] [address] [place] [address] Urea nitrogen/Creatinine [Mass ratio] 21 No Units High 10-20 [facility] Comment on above: Performed By: #### 1 9411559, 4609056 ####[facility] [address] [place] [address] Nurse Consultation Noteon Nurse Consultation Note Reason [...] influenza virus vaccine, inactivated 05/31/2015 Recorded Normal [facility] eGFRon 07-31-2023 GFR/1.73 sq M.predicted among non-blacks MDRD (S/P/Bld) [Vol rate/Area] 74 mL/min/1.73 m2 Normal >=59 [facility] Comment on above: Order Comment: Order added by Discern Expert. Result Comment: Pellet Preparation Operator chelo kidney disease could be indicated at eGFR's of less than 60 mL/min/1.73m2. Kidney failure is indicated at less than 15 mL/min/1.73m2. Performed By: #### 1 4099499, 4981209 ####[facility] [address] [place] [address] Screenson 07-25-2023 Screens [id number] #1.00TIFF Normal [facility] Ambulatory Visit Summaryon 1 09-22-2022 Ambulatory [...] Appointments Friday 10:40 AM EST With: Where: [facility] Invalid Interpretation Code [address] [place] [address]- \.br\ Friday 11:00 AM EST \.br\ With:\.br\ Where: [facility] Ambulatory Visit Summary DORIE ROOT :1945 Visit [...] PM EST With: Srinivasan Lezama MD Where: [facility] [address] [place] [address]- \.br\ Medications\.br\ What How Much When Why [...] care provider if you should take an hawf-mua-ksouoyv probiotic to help restore healthy bacteria in [...] worse:\.br\ ? \.br\ Fatty foods, such as tristanian fries.\.br\ ? \.br\ Foods that contain gluten, [...] Functional Gastrointestinal Disorders: [email or web address]\.br\ ? \.br\ National Tor[place] of Diabetes and Digestive and Kidney Diseases: [...] provider.\.br\ Document Revised: 07/30/2022 Document Reviewed: 07/30/2022 [employer] Patient Education ? 2022 [employer].br\ \.br\ [facility] Family Medicine Office/Clini c Noteon 07-23-2023 [...] of clutter to prevent tripping and/or falling. [place] Advance Directives reviewed, patient has copy at [...] scheduled: 07/29/2023 Will have labs completed with [facility]. Colonoscopy up to date, last completed 10/01/2021. [...] cardiovascular disease) (I25.10: Atherosclerotic heart disease of teller coronary artery without angina pectoris) Patient is taking medications as prescribed. Does not follow with cardiology. Denies concerns with SOB, chest pain or tightness. R (more content not included)... [facility] Comment on above: Result Comment: Elec tronically Signed By: Roxane Barraza\.br\Date and Time Signed: 07/23/23 16:59 EST\.br\Electronically Co-Signed By: Abel Dominguez\.br\Date and Time Co-Signed: 07/23/23 14:57 EST Patient Educationon 07-23-20 Patient Education Gastroenterology Diet for Irritable Bowel [...] care provider if you should take an owyw-ttk-cfkrnrw probiotic to help restore healthy bacteria in [...] symptoms worse: ? Fatty foods, such as tristanian fries. ? Foods that contain gluten, such [...] for Functional Gastrointestinal Disorders: [email or web address] ? National Torrey of Diabetes and Digestive and Kidney Diseases: [...] provider. Document Revised: 07/30/2022 Document Reviewed: 07/30/2022 [employer] Patient Education ? 2022 [employer] Normal [facility] Lab Reportson 07-17-2023 Lab Reports [id number] #1.00TIFF Normal [facility] Lipid 1996 panelon 3 Cholesterol [Mass/Vol] 209 mg/dL High <200 [facility] Comment on above: Order Comment: Apoorva florence Type: BLOOD SPECIMEN Ordering Facility: [facility] Address: [address] [place] [address] Result Comment: <200 mg/dL, Desirable 200-239 mg/dL, Borderline high >239 mg/dL, High Performed By: #### 2 4331-1 #### [facility] CLIA [id number] [place] [address] [place] Cholesterol in HDL [Mass/Vol] 76 mg/dL Normal >39 [facility] Comment on above: Order Comment: Apoorva florence Type: BLOOD SPECIMEN Ordering Facility: [facility] Address: [address] [place] [address] Result Comment: 40-5 9 mg/dL, Acceptable >59 mg/dL, High: Negative risk factor for coronary heart disease <40 mg/dL, Low: Positive risk factor for coronary heart disease Performed By: #### 2 4331-1 #### [facility] CLIA [id number] [facility] [place] [address] [facility] Cholesterol in LDL [Mass/Vol] 115 mg/dL High <100 [facility] Comment on above: Order Comment: Apoorva florence Type: BLOOD SPECIMEN Ordering Facility: [facility] Address: [address] [place] [address] Result Comment: <100 mg/dL, Optimal 100-129 mg/dL, Near optimal/above optimal 130-159 mg/dL, Borderline high 160-189 mg/dL, High >189 mg/dL, Very high Secondary prevention optimal LDL Cholesterol levels are recommended to be < 70 mg/dL Performed By: #### 2 4331-1 #### [facility] CLIA [id number] [facility] [place], [place] [id number] [place] [address] [place] Cholesterol in LDL/Cholesterol in HDL [Mass ratio] 1.51 {ratio} Normal <2.54 [facility] Comment on above: Order Comment: Apoorva florence Type: BLOOD SPECIMEN Ordering Facility: [facility] Address: [address] [place] [address] Result Comment: Refmarciano hirsch: 1. National Cholesterol Education Program ATP III Guideline At-A-Glance Quick Desk Reference: National Heart, Lung, and Blood Torrey. National Institutes of Health. 2001: NIH Publication No. 01-3305. 2. An International Atherosclerosis Society position paper: global recommendations for the management of dyslipidemia: executive summary, Atherosclerosis. 2014: 232(2):410-413. Performed By: #### 2 4331-1 #### [facility] CLIA [id number] [address] [facility] [place] [address] [facility] Cholesterol in VLDL [Mass/Vol] 18 mg/dL Normal <30 [facility] Comment on above: Order Comment: Apoorva florence Type: BLOOD SPECIMEN Ordering Facility: [facility] Address: [address] [place] [address] Performed By: #### 2 4331-1 #### [facility] CLIA [id number] [address] [place] [address] [place] Cholesterol non HDL [Mass/Vol] 133 mg/dL High <130 [facility] Comment on above: Order Comment: Speci men Type: BLOOD SPECIMEN Ordering Facility: [facility] Address: [address] [place] [address] Result Comment: <130 mg/dL, Optimal 130-159 mg/dL, Near optimal/above optimal 160-189 mg/dL, Borderline high 190-219 mg/dL, High >219 mg/dL, Very high Secondary prevention optimal non HDL Cholesterol levels are recommended to be <100 mg/dL Performed By: #### 2 4331-1 #### [facility] IA [id number] [address] [place] [address] [place] Cholesterol.total/Ch olesterol in HDL [Mass ratio] 2.75 {ratio} Normal <5.10 [facility] Comment on above: Order Comment: Speci men Type: BLOOD SPECIMEN Ordering Facility: [facility] Address: [address] [place] [address] Performed By: #### 2 4331-1 #### [facility] IA [id number] [address] [place] [address] [place] FASTING TIME 15 hrs Normal [facility] Comment on above: Order Comment: Speci men Type: BLOOD SPECIMEN Ordering Facility: [facility] Address: [address] [place] [address] Performed By: #### 2 4331-1 #### [facility] IA [id number] [address] [place] [address] [place] Triglyceride [Mass/Vol] 92 mg/dL Normal <150 [facility] Comment on above: Order Comment: Speci men Type: BLOOD SPECIMEN Ordering Facility: [facility] Address: [address] [place] [address] Result Comment: <150 mg/dL, Normal 150-199 mg/dL, Borderline high 200-499 mg/dL, High >499 mg/dL, Very high Performed By: #### 2 4331-1 #### [facility] CLIA [id number] [address] [place] [address] [place] Consultation Noteon 07-08-20 Consultation Note [id number] #1.00TIFF [facility] ECG 12-Leadon 06-25-2023 ECG 12-Lead [id number] #1.00TIFF [facility] Lab Reportson 06-25-2023 Lab Reports [id number] #1.00TIFF [facility] Interdisciplinary Note - Soc ial Workeron 06-23-2023 Interdisciplinary Note - Director Recreation Consult received due to patient's dx of IBS. Due to system glitch, this consult was not received until recently, although ordered 04/30/23. Chart review noted that patient has had subsequent visits with PCP in which SW needs were not identified. SW will remain available. [facility] CNOVon 06-17-2023 CNOV Office Visit (CARDAV) DKDORIE L ([id number]) 1945 F Date Time Provider Department 06/17/23 11:45 AM RACHAEL CHANEY During your visit today, we recorded the following information about you: Pulse Blood pressure Weight Height 58/minute 134/66 49.9 kg 1.575 m Rachael Chaney MD 06/17/2023 12:06 PM Signed [facility] Heart and Vascular Torrey Stepan Sharif Department of Cardiovascular Medicine SECTION OF REGIONAL CARDIOLOGY OUTPATIENT VISIT DATE June 17, 2023 OUTPATIENT VISIT TYPE ESTABLISHED HISTORY OF PRESENT ILLNESS: Dorie L Dk is a (an) 78 year old year old female who is here today for follow-up. She underwent stress nuclear test and echo. Presents with Last OV 04/28/23 Dorie Root is a 77 year old female from [place], [place] here today self referral. Has h/o [...] GUAR GUM, ORAL Take by mouth. Coenzyme G25-Spzzyyc E 100-5 mg-unit cap 2 gels Orally [...] Alcantara RVT (more content not included)... Normal [facility] CNOVon 06-12-2023 CNOV Office Visit (NEURAV) DORIE ROOT ([id number]) 1945 F Date Time Provider Department 06/12/23 [...] VITAMIN D3 ORAL) Take by mouth. Coenzyme R44-Blcrgcl E 100-5 mg-unit cap 2 gels Orally [...] or p (more content not included)... Normal [facility] ECHOon 06-11-2023 Echocardiography Echocardiography Report: Transthoracic Echo [facility] Date of service: 06/11/2023 12:04:33 PM CARE ATTENDANT Ordering physician: RACHAEL CHANEY Indication: Chest Pain [...] * * * Final * * * O2 [employer] [facility] : [id number] Normal [facility] CARDIAC PERF STRESS/PHARM on 06-11-2023 NM CARDIAC PERF STRESS/PHARM * * *Final Report* * * DATE OF EXAM: Jun 11 2023 2:23PM STN 0006 - NM CARDIAC PERF STRESS/PHARM / PROCEDURE REASON: Chest pain, unspecified type * * * * Physician Interpretation * * * * Stress Migratory Game Bird Biologist Report: [facility] Date of service: 06/11/2023 12:42:30 PM Supervising [...] later. See administered radiotracer and doses below. [facility] Date of service: 06/11/2023 12:42:30 PM Ordering [...] Final * * * Stress ECG Report: [facility] Date of service: 06/11/2023 12:42:30 PM Ordering physician: RACHAEL CHANEY client retention specialist: Kathy Gustafson Interpreting physician: Kamilla Damon [...] Days Resting ECG: Sinus Bradycardia and Right [place] Deviation Symptoms at rest: No symptoms Pharamcologic [...] + 2 (more content not included)... Normal [facility] Family Medicine Office/Clini c Noteon 05-15-2023 Family Medicine Office/Clinic Note HPI Staff Dorie is a 77 year old female presenting for ER follow up ER followup: Hospital: [facility] Visit date: 05/09/23 Symptoms the patient presented with: chest pain, SOB Symptom onset/injury onset: came on suddenly Testing Performed: chest xray, ekg, blood work New medications: no Current concerns: pt has appointment karissa Franks within [facility]. going to have a nuclear [...] day(s), # 21 tab(s), Refills(s) 0, Pharmacy: [id number], 155, cm, 05/13/23 13:38:00 EDT, Height/Length [...] day(s), # 21 tab(s), Refills(s) 0, [id number], cm, 05/13/23 13:38:00 EDT, Height/Length Dosing, 50.9, kg, 05/13/23 13:38:00 EDT, Weight Dosing 4. BMI 21.0-21.9, adult (Z68.21: Body mass index [BMI] 21.0-21.9, adult) - BMI education given Ordered: methylPREDNISolone, = 1 packet(s), Oral, As Directed, as directed on package labeling, X 6 day(s), # 21 tab(s), Refills(s) 0, [id number], cm, 05/13/23 13:38:00 EDT, Height/Length Dosing, 50.9, kg, 05/13/23 13:38:00 EDT, Weight Dosing 5. Non-smoker (Z78.9: Other specified health status) - Please continue not to smoke. Ordered: methylPREDNISolone, = 1 packet(s), Oral, As Directed, as directed on package labeling, X 6 day(s), # 21 tab(s), Refills(s) 0, [id number], cm, 05/13/23 13:38:00 EDT, Height/Length [...] 05/13/2023 Family Hist (more content not included)... [facility] Comment on above: Result Comment: Elec tronically Signed By: Srinivasan Lezama MD\.br\Date and Time Signed: 05/15/23 13:28 EDT ED Note-Physicianon 05-14-20 ED Note-Physician [id number]# 1.00CD:127 [facility] RAD - MISCon 05-14-2023 RAD - MISC [id number] #1.00CD:127 [facility] Ambulatory Visit Summaryon 0 05-13-2023 [...] With: Lise DOS SANTOS, Srinivasan Milligan Where: [facility] 05-12-2023 [facility] Telephone (INTMAL) DORIE ROOT ([id number]) 1945 F Date Time Provider Department 05/12/23 RACHAEL CHANEY During your visit today, we recorded the following information about you: Emerita Haque 05/12/2023 12:26 PM Signed Dorie Root is calling Rachael Chaney MD today to request Dr. Chaney to request medical records from patient's visit at [facility] from 05.09.23. Please call patient for any additional questions. Fax number: [phone] Patient has been identified by name and birthdate. Duration of symptoms: N/A Person calling: self Call patient at: at home [phone] (home) [phone] (work) [phone] (cell) Was an appointment scheduled: No Closing statement: Results or non-symptom based questions: Thank you for calling [facility], your call will be returned within the [...] Reason for Visit: Request Outside Medical Records [[id number]] Prescriptions as of 05/21/2023 - BENEFIBER, GUAR GUM, ORAL Take by mouth. - Coenzyme I82-Sipmygx E 100-5 mg-unit cap 2 gels Orally [...] Encounter Status:Closed by CLAIRE CAMPBELL on 05/21/23 Normal [facility] Ambulatory Visit Summaryon 0 8-30-2023 Ambulatory Visit Summary DORIE ROOT :1945 Visit [...] bowel syndrome with constipation Non-smoker Osteoporosis Normal [facility] Medicine Office/Clini c Noteon 04-30-2023 Family Medicine Office/Clinic Note HPI Staff Patient here for one month follow up IBS Yesterday it had been 5 days since her bowels moved but then had a really good BM Still has the linzess but hasn't used it since seeing , used it when saw Roxane Currently using benefiber and sometimes the mirilax Saw template checker Burak 04/29 ordered echo and stress test History [...] elevated and she has been seeing her template checker for this as well. This prompted a [...] with no injury in last year 1101F Director Recreation - Ambulatory Referral 2. Primary hypertension (I10: Essential (primary) hypertension) - Elevated today but believe this is more likely due to stress. -We will see the patient back after her stress test. Ordered: Director Recreation - Ambulatory Referral 3. Stress (F43.9: Reaction to severe stress, unspecified) - We will get the patient in with therapy for further work-up. -Discussed other options for stress mitigation -Patient would like to talk to somebody. Ordered: Director Recreation - Ambulatory Referral 4. BMI 21.0-21.9, adult [...] with no injury in last year 1101F Director Recreation - Ambulatory Referral Follow-up No qualifying data [...] vax 0 (more content not included)... [facility] Comment on above: Result Comment: Elec tronically Signed By: Lise DOS SANTOS, Srinivasan Lynn.nidhi\Date and Time Signed: 04/30/23 15:16 EDT CNOVon 04-28-2023 CNOV Office Visit (CARDAV) DORIE ROOT ([id number]) 1945 F Date Time Provider Department 04/28/23 3:00 PM RACHAEL CHANEY During your visit today, we recorded the following information about you: Pulse Blood pressure Weight Height 60/minute 148/72 50.3 kg 1.575 m Rachael Chaney MD 04/28/2023 5:38 PM Signed [facility] Heart and Vascular Torrey Stepan Sharif Department of Cardiovascular Medicine SECTION OF REGIONAL CARDIOLOGY OUTPATIENT VISIT DATE April 28, 2023 OUTPATIENT VISIT TYPE NEW PRIMARY CARE PHYSICIAN: Srinivasan Lezama MD REFERRING PHYSICIAN: No ref. provider found HISTORY OF PRESENT ILLNESS: Dorie Root is a 77 year old female from [place], [place] here today self referral. Has h/o [...] is a 77 year old female from [place], [place] here today self referral. Has h/o [...] her hu (more content not included)... Normal [facility] JFT32ip 04-28-2023 ECG01 Ventricular Rate : 60 BPM Atrial Rate : 60 BPM P-R Interval : 148 ms QRS Duration : 74 ms Q-T Interval : 378 ms QTC Calculation(Bazett) : 378 ms Calculated P [place] : 86 degrees Calculated R [place] : 96 degrees Calculated T [place] : 82 degrees NORMAL SINUS RHYTHM RIGHT AXIS BORDERLINE ECG Confirmed by BABS MARRERO M.D. ([id number]) on 04/29/2023 10:24:41 AM NAME : DORIE ROOT PID : [id number] : 1945 Gender : Female Race : ORD : Procedure Date : Apr 28 2023 14:42:51 Edit Date : Apr 29 2023 10:24:46 Diagnosis: NORMAL SINUS RHYTHM RIGHT AXIS BORDERLINE ECG Confirmed by BABS MARRERO M.D. ([id number]) on 04/29/2023 10:24:41 AM Test Reason : Location : 192 : AVCRD Overread By : BABS MARRERO M.D. Edited By : BABS MARRERO M.D. Referred By : , Acquired by : , Nataliia [facility] Family Medicine Office/Clini c Noteon 04-07-2023 Family Medicine Office/Clinic [...] with voice recognition artificial intelligence software, specifically [employer], [employer] and or [employer]. Substitutions may have occurred due to the inherent limitations of voice recognition and artificial intelligence software. ATTESTATION: Documentation services were performed after patient or guardian consented to allow [employer] to record this visit. JAIRON equipment validation specialist and provider reviewed before signing. JAIRON: [...] virus vaccine, inactivated 05/31/2015 Recorded Normal [facility] Comment on above: Result Comment: Elec [...] PM EDT With: Srinivasan Lezama MD Where: [facility] Outside Mammographyon 2022 Outside Mammography [id number] #1.00CD:127 [facility] Ambulatory Visit Summaryon 0 03-25-2023 Ambulatory [...] Follow-Up Appointments Friday 9:20 AM EDT With: Srinivasan Lezama MD Where: [facility] Normal [address] [place] [address]- \.br\ Medications\.br\ What How Much When Why Instructions\.br\ Unchanged linaclotide (Linzess 72 mcg oral capsule) 1 Capsules By Mouth Every day Irritable bowel syndrome with constipation BMI 21.0-21.9, adult Non-smoker Pickup at [facility]/pharmacy #[id number]\.br\ Unchanged albuterol (Albuterol (Eqv-ProAir HFA) 90 mcg/ [...] if questions or concerns \.br\ Pharmacy Information\.br\ [facility]/pharmacy #[id number]: [address], [place] [phone]\.br\ \.br\ What How Much When Comments\.br\ Stop [...] syndrome with constipation\.br\ Non-smoker\.br\ Osteoporosis\.br\ \.br\ [facility] Medicine Office/Clini c Noteon 03-25-2023 Family Medicine Office/Clinic Note Chief Complaint hospital follow up suture removal fell, head injury and constipation HPI Staff patient presents for follow up [facility] Patient fell on 03/19 busted [...] Daily, # 90 cap(s), Refills(s) 1, [id number], 155, cm, 03/25/23 8:03:00 EDT, Height/Length [...] Daily, # 90 cap(s), Refills(s) 1, [id number], 155, cm, 03/25/23 8:03:00 EDT, Height/Length Dosing, 50.1, kg, 03/25/23 8:03:00 EDT, Weight Dosing 5. Non-smoker (Z78.9: Other specified health status) - Please continue not to smoke. Ordered: linaclotide, 72 mcg = 1 cap(s), Oral, Daily, # 90 cap(s), Refills(s) 1, Pharmacy: [facility]/pharmacy #[id number], 155, cm, 03/25/23 8:03:00 EDT, Height/Length [...] Tobacco U (more content not included)... [facility] Comment on above: Result Comment: Elec tronically Signed By: Lise DOS SANTOS, Srinivasan Lynn.nidhi\Date and Time Signed: 03/25/23 08:47 EDT Tru 03-24-2023 MARLON Office Visit (NEURAV) DORIE ROOT ([id number]) 1945 F Date Time Provider Department 03/24/23 1:40 PM ISAAC MATSON During your visit today, [...] which included preparing to see the patient, [id number] patient care, completing clinical documentation, obtaining and/or reviewing separately obtained history, performing a medically appropriate examination, counseling and educating the patient/family/careg iver, and ordering medications, tests, or procedures. SIGNATURE: Isaac Matson MD PATIENT NAME: Dorie Root DATE: March 24, 2023 TIME: 1:43 PM Referring Provider: ISAAC MATSON [[id number]] Allergies As of Date: 03/24/2023 (No Known Allergies) Date Reviewed: 03/24/2023 Reviewed by: Jacob Zavala MA - Fully Assessed Reason for Visit: Established Patient Follow-Up [[id number]] Primary Visit Diagnosis:Dizziness and giddiness [R42] Order(s):topiramate (TOPAMAX) 25 mg tabletTake 1 tablet by mouth daily at bedtime.Disp: 30 tabletRfl: 2 Prescriptions as of 03/24/2023 - topiramate (TOPAMAX) 25 mg tablet Take 1 tablet by mouth daily at bedtime. - lisinopril (PRINIVIL) 10 mg tablet Take 10 mg by mouth once daily. - budesonide-formotero l ( (more content not included)... Normal [facility] RAD - MISCon 03-24-2023 RAD - MISC [id number] #1.00CD:127 [facility] RAD - CT Reporton 03-20-2023 RAD - CT Report [id number] #1.00CD:127 [facility] RAD - CT Report [id number] #1.00CD:127 [facility] Lab Reportson 02-26-2023 Lab Reports [id number] #1.00CD:127 [facility] Lab Reportson 02-18-2023 Lab Reports [id number]# 1.00CD:127 Normal [facility] Ambulatory Visit Summaryon 0 02-17-2023 Ambulatory Visit Summary DORIE ROOT :1945 Visit Date:02/17/2023 Ambulatory Visit Instructions Your Diagnosis Irritable bowel syndrome with constipation BMI 21.0-21.9, adult Non-smoker Your Care Team Attending Physician - Roxane [...] 21.0-21.9, adult Non-smoker Refills: 1 Pickup at [facility]/pharmacy #[id number] Unchanged albuterol (Albuterol (Eqv-ProAir HFA) 90 mcg/ [...] (CoQ10 100 mg oral capsule) Pharmacy Information [facility]/pharmacy #[id number]: [address], [place] [phone] Allergies No Known Allergies No Known Medication Allergies Problems Ongoing - Any problem that you are currently receiving treatment for. ASCVD (arteriosclerotic cardiovascular disease) Asthma BMI 21.0-21.9, adult HTN (hypertension) Irritable bowel syndrome with constipation Non-smoker Osteoporosis Normal [facility] Medicine Office/Clini c Noteon 02-17-2023 Family Medicine [...] Daily, # 30 cap(s), Refills(s) 1, [id number], cm, 02/17/23 11:37:00 EDT, Height/Length Dosing, 51.2, kg, 02/17/23 11:37:00 EDT, Weight Dosing 2. BMI 21.0-21.9, adult (Z68.21: Body mass index [BMI] 21.0-21.9, adult) BMI education complete Ordered: linaclotide, 72 mcg = 1 cap(s), Oral, Daily, # 30 cap(s), Refills(s) 1, [id number] 155, cm, 02/17/23 11:37:00 EDT, Height/Length Dosing, 51.2, kg, 02/17/23 11:37:00 EDT, Weight Dosing 3. Non-smoker (Z78.9: Other specified health status) continue not smoking Ordered: linaclotide, 72 mcg = 1 cap(s), Oral, Daily, # 30 cap(s), Refills(s) 1, [facility] 155, cm, 02/17/23 11:37:00 EDT, Height/Length [...] vaccine, inactivated (more content not included)... Normal [facility] Comment on above: Result Comment: Elec tronically Signed By: Roxane Barraza\.br\Date and Time Signed: 02/17/23 12:12 EDT Lab Reportson 02-03-2023 Lab Reports [id number] #1.00CD:127 [facility] Lab Reportson 01-22-2023 Lab Reports [id number] #1.00CD:127 [facility] CBC AUTO DIFFon 01-21-2023 BASO # 0.1 103/ul Normal 0.0-0.1 [facility] Comment on above: Performed By: #### C BC #### [facility] [address] [place] [address] Dr. Mina Perkins Basophils/100 WBC (Bld) 0.7 % Normal 0.2-2.0 [facility] Comment on above: Performed By: #### C BC #### [facility] [address] [place] [address] Dr. Mina Perkins EO # 0.1 103/ul Normal 0.0-0.7 [facility] Comment on above: Performed By: #### C BC #### [facility] [address] [place] [address] Dr. Mina Perkins Eosinophils/100 WBC (Bld) 1.2 % Normal 0.9-7.0 [facility] Comment on above: Performed By: #### C BC #### [facility] [address] [place] [address] Dr. Mina Perkins Erythrocyte distribution width (RBC) [Ratio] 12.2 % Normal 11.0-15.0 [facility] Comment on above: Performed By: #### C BC #### [facility] [address] [place] [address] Dr. Mina Perkins Hematocrit (Bld) [Volume fraction] 44.0 % Normal 36.0-48.0 [facility] Comment on above: Performed By: #### C BC #### [facility] [address] [place] [address] Dr. Mina Perkins Hemoglobin (Bld) [Mass/Vol] 15.4 g/dL Normal 12.0-16.0 [facility] Comment on above: Performed By: #### C BC #### [facility] [address] [place] [address] Dr. Mina Perkins IG # 0.02 10e3/ul Normal 0.00-0.03 [facility] Comment on above: Performed By: #### C BC #### [facility] [address] [place] [address] Dr. Mina Perkins IG % 0.2 % Normal 0.0-0.5 [facility] Comment on above: Performed By: #### C BC #### [facility] [address] [place] [address] Dr. Mina Perkins LYMPH # 1.8 103/ul Normal 1.2-3.8 [facility] Comment on above: Performed By: #### C BC #### [facility] [address] [place] [address] Dr. Mina Perkins Lymphocytes/100 WBC (Bld) 19.2 % Critically low 20.5-60.0 [facility] Comment on above: Performed By: #### C BC #### [facility] [address] [place] [address] Dr. Mina Perkins MANUAL DIFF REQ NO Normal [facility] Comment on above: Performed By: #### C BC #### [facility] [address] [place] [address] Dr. Mina Perkins MCH (RBC) [Entitic mass] 30.8 pg Normal 26.7-34.0 [facility] Comment on above: Performed By: #### C BC #### [facility] [address] [place] [address] Dr. Mina Perkins MCHC (RBC) [Mass/Vol] 35.0 g/dL Normal 29.9-35.2 [facility] Comment on above: Performed By: #### C BC #### [facility] [address] [place] [address] Dr. Mina Perkins MCV (RBC) [Entitic vol] 88.0 fL Normal 81.0-99.0 [facility] Comment on above: Performed By: #### C BC #### [facility] [address] [place] [address] Dr. Mina Perkins MONO # 0.7 103/ul Normal 0.3-0.8 [facility] Comment on above: Performed By: #### C BC #### [facility] [address] [place] [address] Dr. Mina Perkins Monocytes/100 WBC (Bld) 7.5 % Normal 1.7-12.0 [facility] Comment on above: Performed By: #### C BC #### [facility] [address] [place] [address] Dr. Mina Perkins NEUT # 6.8 103/ul Critically high 1.4-6.5 [facility] Comment on above: Performed By: #### C BC #### [facility] [address] [place] [address] Dr. Mina Perkins Neutrophils/100 WBC (Bld) 71.2 % Normal 43.0-75.0 [facility] Comment on above: Performed By: #### C BC #### [facility] [address] [place] [address] Dr. Mina Perkins Platelet mean volume (Bld) [Entitic vol] 9.8 fL Normal 9.5-13.5 [facility] Comment on above: Performed By: #### C BC #### [facility] [address] [place] [address] Dr. Mina Perkins PLT 278 103/ul Normal 150-450 [facility] Comment on above: Performed By: #### C BC #### [facility] [address] [place] [address] Dr. Mina Perkins RBC 5.00 106/ul Normal 4.20-5.40 [facility] Comment on above: Performed By: #### C BC #### [facility] [address] [place] [address] Dr. Mina Perkins WBC 9.5 103/ul Normal 4.0-11.0 [facility] Comment on above: Performed By: #### C BC #### [facility] [address] [place] [address] Dr. Mina Perkins Family Medicine Office/Clini c Noteon 01-21-2023 Family Medicine Office/Clinic Note Chief Complaint diarrhea HPI Staff Acute: Current issues/complaints: Diarrhea complaints of diarrhea Onset: many years, chronic. Had it Friday and Today. Nothing to eat all day. Dx with IBS by [facility] many years ago. Characteristics: Doesn't matter what [...] a little over a year ago in [place]. Review of Systems PHQ Score Initial Depression [...] vaccine, inactivated (more content not included)... Normal [facility] Comment on above: Result Comment: Elec tronically Signed By: Arron MORALES, Roxane Connell\.br\Date and Time Signed: 01/21/23 14:35 EDT LIPID PROFILEon 01-21-2023 CHOL-HDL RATIO NORM SEE BELOW Normal [facility] Comment on above: Result Comment: 3.3 - 4.4 LOW RISK 4.4 - 7.1 AVERAGE RISK 7.1 - 11.0 MODERATE RISK >11.0 HIGH RISK Performed By: #### T SH, CMP, LIPID #### [facility] [address] [address] [address] Mina Perkins Cholesterol [Mass/Vol] 199 mg/dL Normal <=200 [facility] Comment on above: Performed By: #### T SH, CMP, LIPID #### [facility] [address] [address] [address] Mina Perkins Cholesterol in HDL [Mass/Vol] 84 mg/dL Critically high 40-60 [facility] Comment on above: Performed By: #### T SH, CMP, LIPID #### [facility] [address] [address] [address] Mina Perkins Cholesterol in LDL [Mass/Vol] 102.2 mg/dL Normal [facility] Comment on above: Performed By: #### T SH, CMP, LIPID #### [facility] [address] [place] [address] Dr. Mina Perkins Cholesterol.total/Ch olesterol in HDL [Mass ratio] 2.4 {ratio} Normal [facility] Comment on above: Performed By: #### T SH, CMP, LIPID #### [facility] [address] [address] [address] Mina Perkins HDL NORMAL > or = 60 mg/dl - LOW CARDIOVASCULAR RISK <40 mg/dl - HIGH CARDIOVASCULAR RISK Normal [facility] Comment on above: Performed By: #### T SH, CMP, LIPID #### [facility] [address] [place] [address] Dr. Mina Perkins LDL CALC NORMAL SEE BELOW Normal [facility] Comment on above: Result Comment: <100 mg/dl OPTIMAL 100 - 129 mg/dl NEAR OR ABOVE OPTIMAL 130 - 159 mg/dl BORDERLINE HIGH 160 - 189 mg/dl HIGH >190 mg/dl VERY HIGH Performed By: #### T TRENA, CMP, LIPID #### [facility] [address] [place] [address] Dr. Mina Perkins Triglyceride [Mass/Vol] 64 mg/dL Normal <=150 [facility] Comment on above: Performed By: #### T TRENA CMP, LIPID #### [facility] [address] [place] [address] Dr. Mina Perkins VLDL CALC 12.8 mg/dL Normal [facility] Comment on above: Performed By: #### T TRENA, CMP, LIPID #### [facility] [address] [place] [address] Dr. Mina Perkins PROF 14(COMP METB)on 023 Albumin [Mass/Vol] 4.2 g/dL Normal 3.4-5.0 [facility] Comment on above: Performed By: #### T TRENA, CMP, LIPID #### [facility] [address] [place] [address] Dr. Mina Perkins Albumin/Globulin [Mass ratio] 1.1 {ratio} Normal [facility] Comment on above: Performed By: #### T TRENA, CMP, LIPID #### [facility] [address] [address] [address] Mina Perkins ALP [Catalytic activity/Vol] 79 U/L Normal 46-116 [facility] Comment on above: Performed By: #### T SH, CMP, LIPID #### [facility] [address] [address] [address] Mina Perkins ALT [Catalytic activity/Vol] 30 U/L Normal 14-59 [facility] Comment on above: Performed By: #### T SH, CMP, LIPID #### [facility] [address] [address] [address] Mina Perkins Anion gap [Moles/Vol] 15.1 mmol/L Normal [facility] Comment on above: Performed By: #### T SH, CMP, LIPID #### [facility] [address] [address] [address] Mina Perkins AST [Catalytic activity/Vol] 39 U/L Critically high 15-37 [facility] Comment on above: Performed By: #### T SH, CMP, LIPID #### [facility] [address] [address] [address] Mina Perkins Bilirubin [Mass/Vol] 0.9 mg/dL Normal 0.2-1.0 [facility] Comment on above: Performed By: #### T SH, CMP, LIPID #### [facility] [address] [address] [address] Mina Perkins Calcium [Mass/Vol] 9.7 mg/dL Normal 8.5-10.1 [facility] Comment on above: Performed By: #### T SH, CMP, LIPID #### [facility] [address] [address] [address] Mina Perkins Chloride [Moles/Vol] 99 mmol/L Normal 98-107 [facility] Comment on above: Performed By: #### T SH, CMP, LIPID #### [facility] [address] [address] [address] Mina Perkins CO2 [Moles/Vol] 27.3 mmol/L Normal 21.0-32.0 [facility] Comment on above: Performed By: #### T SH, CMP, LIPID #### [facility] [address] [address] [address] Mina Perkins Creatinine [Mass/Vol] 0.74 mg/dL Normal 0.55-1.02 [facility] Comment on above: Performed By: #### T SH, CMP, LIPID #### [facility] [address] [address] [address] Mina Perkins EGFR-AF GABONESE >60 Normal >=60 [facility] Comment on above: Performed By: #### T SH, CMP, LIPID #### [facility] [address] [address] [address] Mina Perkins EGFR-NON AF GABONESE >60 Normal >=60 [facility] Comment on above: Performed By: #### T SH, CMP, LIPID #### [facility] [address] [address] [address] Mina Perkins Globulin (S) [Mass/Vol] 3.8 g/dL Normal [facility] Comment on above: Performed By: #### T SH, CMP, LIPID #### [facility] [address] [address] [address] Mina Perkins Glucose [Mass/Vol] 85 mg/dL Normal 74-106 [facility] Comment on above: Performed By: #### T SH, CMP, LIPID #### [facility] [address] [address] [address] Mina Perkins Potassium [Moles/Vol] 4.4 mmol/L Normal 3.5-5.1 [facility] Comment on above: Performed By: #### T SH, CMP, LIPID #### [facility] [address] [address] [address] Mina Perkins Protein [Mass/Vol] 8.0 g/dL Normal 6.4-8.2 [facility] Comment on above: Performed By: #### T SH, CMP, LIPID #### [facility] [address] [address] [address] Mina Perkins Sodium [Moles/Vol] 137 mmol/L Normal 136-145 [facility] Comment on above: Performed By: #### T SH, CMP, LIPID #### [facility] [address] [place], [place] [address] Dr. Mina Perkins Urea nitrogen [Mass/Vol] 15.0 mg/dL Normal 7.0-18.0 [facility] Comment on above: Performed By: #### T SH, CMP, LIPID #### [facility] [address] [place], [place] [address] Dr. Mina Perkins Urea nitrogen/Creatinine [Mass ratio] 20.3 mg/mg Normal [facility] Comment on above: Performed By: #### T SH, CMP, LIPID #### [facility] [address] [place], [place] [address] Dr. Mina Perkins Patient Educationon 01-22-20 Patient [...] numbers. This can be done either in [place] ([place] or metric measurements. Note that charts and online BMI calculators are available to help you find your BMI quickly and easily without having to do these calculations yourself. To calculate your BMI in [place] ([place] measurements: 1. Measure your weight in [...] for Disease Control and Prevention: www.cdc.gov ? [place] Heart [employer]: www.heart.org ? National Heart, Lung, and Blood [place]: www.nhlbi.nih.gov Summary ? Body mass index (BMI) is a number that is calculated from a person's weight and height. ? BMI may help estimate how much of a person's weight is composed of fat. BMI can help identify those who may be at higher risk for certain medical problems. ? BMI can be measured using Syrian measurements or metric measurements. ? BMI charts are used to identify whether you are underweight, normal weight, overweight, or obese. This information is not intended to replace advice given to you by your health care provider. Make sure you discuss any questions you have with your health care provider. Document Revised: 05/10/2020 Document Reviewed: 03/17/2020 [employer] Patient Education ? 2022 [employer] Normal [facility] TSHon 01-21-2023 TSH 1.896 uIU/mL Normal 0.358-3.740 [facility] Comment on above: Performed By: #### T SH, CMP, LIPID #### [facility] [address] [place] [address] Dr. Mina Perkins [facility] 01-16-2023 [facility] HNO ID: [id number] Author: RT Grabiel(R) Service: Radiology Author Type: [...] DATA: Not applicable SIGNED BY: RT Grabiel(R) Courteny Charles(Maria Eugenia) MR January 16, 2023 1:25 PM [facility] MRI BRAIN WO IVCONon 023 MRI BRAIN WO IVCON * * *Final Report* * * DATE OF EXAM: Jan 16 2023 1:40PM [facility] 0294 - MRI BRAIN WO IVCON [...] posterior fossa abnormality. No acute intracranial infarction. 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 See Link below for Image Normal [facility] CNOVon 12-23-2022 CNOV Office Visit (NEURAV) DORIE ROOT ([id number]) 1945 F Date Time Provider Department 12/23/22 [...] the date (more content not included)... Normal [facility] HISTORY PHYSICALon HISTORY PHYSICAL HNO ID: [id number] Author: Isaac Matson MD Service: ? Author [...] which included preparing to see the patient, [id number] patient care, completing clinical documentation, obtaining and/or reviewing separately obtained history, performing a medically appropriate examination, couns (more content not included)... [facility] Recordson [facility]-22 Immunization Records [id number] #1.00CD:127 [facility] Ambulatory Visit Summaryon 0 11-20-2022 Ambulatory Visit Summary DORIE ROOT :1945 Visit Date:11/20/2022 Ambulatory Visit Instructions Your Diagnosis BMI 22.0-22.9, adult Your Care Team Attending Physician - Arron [...] No Known Allergies No Known Medication Allergies Nataliia Ayou[facility] Family Medicine Office/Clini c Noteon 11-20-2022 Family Medicine [...] the next week. they will go to [facility]. RTC as needed. Needs medicare wellness visit [...] virus vaccine, inactivated 05/31/2015 Recorded Normal A[facility] Comment on above: Result Comment: Elec tronically Signed By: Roxane Barraza.nidhi\Date and Time Signed: 11/20/22 16:14 EDT CNOVon 11-15-2022 CNOV Office Visit (CDISMN) DORIE ROOT ([id number]) 1945 F Date Time Provider Department 11/15/22 12:30 PM LAUREN MCCAULEY [facility] During your visit today, we recorded the following information about you: Lauren Mccauley, PhD 11/21/2022 7:44 AM Signed [facility] Vestibular Test Battery Report Name: Dorie Connell Dk CC#: [id number] Date of Service: 11/15/2022 Date of : [...] right side of her head around the episcopal region that occurs very rarely, about once [...] exercises, 2) (more content not included)... Normal [facility] Historical Records Officeon 11-05-2022 Historical Records Office [id number] #[id number]:127 Normal [facility] Patient Correspondenceon Patient Correspondence [id number] #[id number]:127 Normal [facility] Nurse Consultation Noteon Nurse Consultation Note Reason for Visit Patient here for blood pressure check Physical Exam Vitals & Measurements BP: 150/66 Medications No active medications Allergies No active allergies Normal [facility] FREE T3on 10-29-2022 FREE T3 2.71 pg/mlL Normal 2.18-3.98 [facility] Comment on above: Performed By: #### F T3, TSH #### [facility] [address] [address] [address] Mina Perkins FREE T4on 10-29-2022 Free T4 [Mass/Vol] 1.10 ng/dL Normal 0.76-1.46 [facility] Comment on above: Performed By: #### F T4 #### [facility] [address] [address] [address] Mina Perkins TSHon 10-29-2022 TSH 2.219 uIU/mL Normal 0.358-3.740 [facility] Comment on above: Performed By: #### F T3, TSH #### [facility] [address] [address] [address] Mina Perkins CBC AUTO DIFFon 05-29-2022 BASO # 0.1 103/ul Normal 0.0-0.1 [facility] Comment on above: Performed By: #### C BC #### [facility] [address] [place] [address] Dr. Mina Perkins Basophils/100 WBC (Bld) 0.7 % Normal 0.2-2.0 [facility] Comment on above: Performed By: #### C BC #### [facility] [address] [place] [address] Dr. Mina Perkins EO # 0.1 103/ul Normal 0.0-0.7 [facility] Comment on above: Performed By: #### C BC #### [facility] [address] [place] [address] Dr. Mina Perkins Eosinophils/100 WBC (Bld) 1.7 % Normal 0.9-7.0 [facility] Comment on above: Performed By: #### C BC #### [facility] [address] [place] [address] Dr. Mina Perkins Erythrocyte distribution width (RBC) [Ratio] 12.1 % Normal 11.0-15.0 [facility] Comment on above: Performed By: #### C BC #### [facility] [address] [place] [address] Dr. Mina Perkins Hematocrit (Bld) [Volume fraction] 40.8 % Normal 36.0-48.0 [facility] Comment on above: Performed By: #### C BC #### [facility] [address] [place] [address] Dr. Mina Perkins Hemoglobin (Bld) [Mass/Vol] 14.2 g/dL Normal 12.0-16.0 [facility] Comment on above: Performed By: #### C BC #### [facility] [address] [place] [address] Dr. Mina Perkins IG # 0.01 10e3/ul Normal 0.00-0.03 [facility] Comment on above: Performed By: #### C BC #### [facility] [address] [place] [address] Dr. Mina Perkins IG % 0.1 % Normal 0.0-0.5 [facility] Comment on above: Performed By: #### C BC #### [facility] [address] [place] [address] Dr. Mina Perkins LYMPH # 1.5 103/ul Normal 1.2-3.8 [facility] Comment on above: Performed By: #### C BC #### [facility] [address] [place] [address] Dr. Mina Perkins Lymphocytes/100 WBC (Bld) 20.1 % Critically low 20.5-60.0 [facility] Comment on above: Performed By: #### C BC #### [facility] [address] [place] [address] Dr. Mina Perkins MANUAL DIFF REQ NO Normal [facility] Comment on above: Performed By: #### C BC #### [facility] [address] [place] [address] Dr. Mina Perkins MCH (RBC) [Entitic mass] 30.5 pg Normal 26.7-34.0 [facility] Comment on above: Performed By: #### C BC #### [facility] [address] [place] [address] Dr. Mina Perkins MCHC (RBC) [Mass/Vol] 34.8 g/dL Normal 29.9-35.2 [facility] Comment on above: Performed By: #### C BC #### [facility] [address] [place] [address] Dr. Mina Perkins MCV (RBC) [Entitic vol] 87.7 fL Normal 81.0-99.0 [facility] Comment on above: Performed By: #### C BC #### [facility] [address] [place] [address] Dr. Mina Perkins MONO # 0.6 103/ul Normal 0.3-0.8 [facility] Comment on above: Performed By: #### C BC #### [facility] [address] [place] [address] Dr. Mina Perkins Monocytes/100 WBC (Bld) 8.1 % Normal 1.7-12.0 [facility] Comment on above: Performed By: #### C BC #### [facility] [address] [place] [address] Dr. Mina Perkins NEUT # 5.2 103/ul Normal 1.4-6.5 [facility] Comment on above: Performed By: #### C BC #### [facility] [address] [place] [address] Dr. Mina Perkins Neutrophils/100 WBC (Bld) 69.3 % Normal 43.0-75.0 [facility] Comment on above: Performed By: #### C BC #### [facility] [address] [place] [address] Dr. Mina Perkins Platelet mean volume (Bld) [Entitic vol] 9.3 fL Critically low 9.5-13.5 [facility] Comment on above: Performed By: #### C BC #### [facility] [address] [place] [address] Dr. Mina Perkins PLT 311 103/ul Normal 150-450 [facility] Comment on above: Performed By: #### C BC #### [facility] [address] [place] [address] Dr. Mina Perkins RBC 4.65 106/ul Normal 4.20-5.40 [facility] Comment on above: Performed By: #### C BC #### [facility] [address] [place] [address] Dr. Mina Perkins WBC 7.5 103/ul Normal 4.0-11.0 [facility] Comment on above: Performed By: #### C BC #### [facility] [address] [place] [address] Dr. Mina Perkins LIPID PROFILEon 05-29-2022 CHOL-HDL RATIO NORM SEE BELOW Normal [facility] Comment on above: Result Comment: 3.3 - 4.4 LOW RISK 4.4 - 7.1 AVERAGE RISK 7.1 - 11.0 MODERATE RISK >11.0 HIGH RISK Performed By: #### L IPID, CMP #### [facility] [address] [address] [address] Mina Perkins Cholesterol [Mass/Vol] 196 mg/dL Normal <=200 [facility] Comment on above: Performed By: #### L IPID, CMP #### [facility] [address] [address] [address] Mina Perkins Cholesterol in HDL [Mass/Vol] 82 mg/dL Critically high 40-60 [facility] Comment on above: Performed By: #### L IPID, CMP #### [facility] [address] [address] [address] Mina Perkins Cholesterol in LDL [Mass/Vol] 99.0 mg/dL Normal [facility] Comment on above: Performed By: #### L IPID, CMP #### [facility] [address] [place] [address] Dr. Mina Perkins Cholesterol.total/Ch olesterol in HDL [Mass ratio] 2.4 {ratio} Normal [facility] Comment on above: Performed By: #### L IPID, CMP #### [facility] [address] [address] [address] Mina Perkins HDL NORMAL > or = 60 mg/dl - LOW CARDIOVASCULAR RISK <40 mg/dl - HIGH CARDIOVASCULAR RISK Normal [facility] Comment on above: Performed By: #### L IPID, CMP #### [facility] [address] [address] [address] Mina Perkins LDL CALC NORMAL SEE BELOW Normal [facility] Comment on above: Result Comment: <100 mg/dl OPTIMAL 100 - 129 mg/dl NEAR OR ABOVE OPTIMAL 130 - 159 mg/dl BORDERLINE HIGH 160 - 189 mg/dl HIGH >190 mg/dl VERY HIGH Performed By: #### L IPID, CMP #### [facility] [address] [place] [address] Dr. Mina Perkins Triglyceride [Mass/Vol] 75 mg/dL Normal <=150 [facility] Comment on above: Performed By: #### L IPID, CMP #### [facility] [address] [address] [address] Mina Perkins VLDL CALC 15.0 mg/dL Normal [facility] Comment on above: Performed By: #### L IPID, CMP #### [facility] [address] [place] [address] Dr. Mina Perkins PROF 14(COMP METB)on 022 Albumin [Mass/Vol] 4.1 g/dL Normal 3.4-5.0 [facility] Comment on above: Performed By: #### L IPID, CMP #### [facility] [address] [place] [address] Dr. Mina Perkins Albumin/Globulin [Mass ratio] 1.2 {ratio} Normal [facility] Comment on above: Performed By: #### L IPID, CMP #### [facility] [address] [place] [address] Dr. Mina Perkins ALP [Catalytic activity/Vol] 77 U/L Normal 46-116 [facility] Comment on above: Performed By: #### L IPID, CMP #### [facility] [address] [place] [address] Dr. Mina Perkins ALT [Catalytic activity/Vol] 36 U/L Normal 14-59 [facility] Comment on above: Performed By: #### L IPID, CMP #### [facility] [address] [place] [address] Dr. Mina Perkins Anion gap [Moles/Vol] 15.3 mmol/L Normal [facility] Comment on above: Performed By: #### L IPID, CMP #### [facility] [address] [place] [address] Dr. Mina Perkins AST [Catalytic activity/Vol] 31 U/L Normal 15-37 [facility] Comment on above: Performed By: #### L IPID, CMP #### [facility] [address] [place] [address] Dr. Mina Perkins Bilirubin [Mass/Vol] 0.9 mg/dL Normal 0.2-1.0 [facility] Comment on above: Performed By: #### L IPID, CMP #### [facility] [address] [address] [address] Mina Perkins Calcium [Mass/Vol] 9.5 mg/dL Normal 8.5-10.1 [facility] Comment on above: Performed By: #### L IPID, CMP #### [facility] [address] [place] [address] Dr. Mina Perkins Chloride [Moles/Vol] 97 mmol/L Critically low 98-107 [facility] Comment on above: Performed By: #### L IPID, CMP #### [facility] [address] [place] [address] Dr. Mina Perkins CO2 [Moles/Vol] 25.6 mmol/L Normal 21.0-32.0 [facility] Comment on above: Performed By: #### L IPID, CMP #### [facility] [address] [place] [address] Dr. Mina Perkins Creatinine [Mass/Vol] 0.81 mg/dL Normal 0.55-1.02 [facility] Comment on above: Performed By: #### L IPID, CMP #### [facility] [address] [place] [address] Dr. Mina Perkins EGFR-AF GABONESE >60 Normal >=60 [facility] Comment on above: Performed By: #### L IPID, CMP #### [facility] [address] [place] [address] Dr. Mina Perkins EGFR-NON AF GABONESE >60 Normal >=60 [facility] Comment on above: Performed By: #### L IPID, CMP #### [facility] [address] [place] [address] Dr. Mina Perkins Globulin (S) [Mass/Vol] 3.4 g/dL Normal [facility] Comment on above: Performed By: #### L IPID, CMP #### [facility] [address] [place] [address] Dr. Mina Perkins Glucose [Mass/Vol] 89 mg/dL Normal 74-106 [facility] Comment on above: Performed By: #### L IPID, CMP #### [facility] [address] [place] [address] Dr. Mina Perkins Potassium [Moles/Vol] 3.9 mmol/L Normal 3.5-5.1 [facility] Comment on above: Performed By: #### L IPID, CMP #### [facility] [address] [address] [address] Mina Perkins Protein [Mass/Vol] 7.5 g/dL Normal 6.4-8.2 [facility] Comment on above: Performed By: #### L IPID, CMP #### [facility] [address] [address] [address] Mina Perkins Sodium [Moles/Vol] 134 mmol/L Critically low 136-145 [facility] Comment on above: Performed By: #### L IPID, CMP #### [facility] [address] [place] [address] Dr. Mina Perkins Urea nitrogen [Mass/Vol] 14.0 mg/dL Normal 7.0-18.0 [facility] Comment on above: Performed By: #### L IPID, CMP #### [facility] [address] [place] [address] Dr. Mina Perkins Urea nitrogen/Creatinine [Mass ratio] 17.3 mg/mg Normal [facility] Comment on above: Performed By: #### L IPID, CMP #### [facility] [address] [place] [address] Dr. Mina Perkins MG MAMM SCREEN 3D ELSI CADon 03-14-2022 MG MAMM SCREEN 3D ELSI CAD Patient: DORIE ROOT Exam Date: 03/14/2022 : 1945 Gender:F Ordering : DR KAIT BOYCE Admission #: [id number] Family : DR JULIANO SHARMA . Order #: [id number] CLICK HERE TO VIEW EXAM RADIOLOGY REPORT [...] breast cancer at age 53. LOCATION: [facility] BREAST COMPOSITION: Heterogeneously dense,which may obscure [...] Kasper MD on 03/14/2022 at 13:40 Normal [facility] [place] 09-07-2021 L Specimen: [id number] Received: 09/07/21 Status: MITZY Richard Num: [id number] Spec Type: Surgical Subm Dr: An Yanez Jr, DO Tissues: A Colon Biopsy (RANDOM COLON) Procedures: HE Stain/2, Gross/Micro L4 Patient Age/Sex Location Account Attending Physician Dorie Root 76/F [id number] An Yanez Jr, DO SPEC NUM: [id number] RECD: 09/07/21 STATUS: MITZY VENTURA NUM: [id number] JESICA: 09/07/21 [facility] DR: An Yanez Jr, ENTERED: 09/07/[address]: SUZI TYPE: Surgical DEPT: S ORDERED: [...] support the above pathologic diagnosis. CPT Codes 21532 Specimen: [id number] Received: 09/07/21 Status: MITZY Ventura Num: [id number] Spec Type: Surgical Subm Dr: An Yanez Jr, DO Tissues: A Colon Biopsy (RANDOM COLON) Procedures: HE Stain/2, Gross/Micro L4 Patient: Dorie Root Ko [id number] (Continued) Signed (signature on file) Afua Nash MD 09/10/21 9295 [facility] COVID-19 Antigenon 2 COVID-19 Antigen Healthcare Worker?: [...] its performance Zena Disclaimer characteristic determined by [employer] and Zena Disclaimer validated at [facility]. This Zena Disclaimer test has not been [...] Emergency Use Authorization for Coronavirus Zena Disclaimer is during the Public Health Emergency) Zena Disclaimer [...] is terminated or revoked sooner. PERFORMED BY: [place] [address] PATHOLOGIST POULTRY INSEMINATOR ESTEBAN REAGAN M.D. Normal [facility] Comment on above: Performed By: #### S ROBERTA COVID-19 EZNA #### [facility] [address] [place] [address] Zena Ag Negativeon 09-05-19 Zena Ag Negative Negative Normal Negative [facility] Comment on above: Result Comment: This is a duplicate Zena SARS Antigen (RANJAN) result to be used for statistical tracking purpose only. PERFORMED BY: [place] [address] PATHOLOGIST POULTRY INSEMINATOR ESTEBAN REAGAN M.D. Performed By: #### S ROBERTA COVID-19 ZENA #### [address] [address] [facility] Vital Signs Date Time Vital Sign Value Performing Clinician Reggie dan 06-12-2023 14:51-0400 Diastolic blood pressure 69 mm[Hg] Isaac Matson MD Work Phone: [facility] 06-12-2023 14:51-0400 Heart rate 78 /min Isaac Matson MD Work Phone: [facility] 06-12-2023 14:51-0400 Systolic blood pressure 154 mm[Hg] Isaac Matson MD Work Phone: [facility] 04-28-2023 14:38-0400 Body height 157.5 cm Yair Chaney MD Work Phone: [facility] 04-28-2023 14:38-0400 Body weight 50.35 kg Yair Chaney MD Work Phone: [facility] 04-28-2023 14:38-0400 Diastolic blood pressure 72 mm[Hg] Yair Chaney MD Work Phone: [facility] 04-28-2023 14:38-0400 Heart rate 60 /min Yair Chaney MD Work Phone: [facility] 04-28-2023 14:38-0400 SaO2% (BldA) [Mass fraction] 99 % Yair Chaney MD Work Phone: [facility] 04-28-2023 14:38-0400 Systolic blood pressure 148 mm[Hg] Yair Chaney MD Work Phone: [facility] 12-23-2022 12:58-0400 Diastolic blood pressure 78 mm[Hg] Isaac Matson MD Work Phone: [facility] 12-23-2022 12:58-0400 Heart rate 78 /min Isaac Matson MD Work Phone: [facility] 12-23-2022 12:58-0400 Systolic blood pressure 163 mm[Hg] Isaac Matson MD Work Phone: [facility] Encounters Encounter Date Encounter Type Care Provider Facility Start: 07-23-2024 ambulatory Srinivasan Lezama Facility :[facility] [place] Start: 10-21-2023 ambulatory Srinivasan Lezama Facility :[facility] [place] Start: 10-08-2023 ambulatory Srinivasan Lezama Facility :[facility] Start: 09-09-2023 ambulatory Srinivasan Lezama Facility :[facility] [place] Start: 09-08-2023 End: 09-09-2023 ambulatory Srinivasan Lezama Facility:[facility] [place] Start: 08-12-2023 ambulatory Srinivasan Lezama Facility: [place] Start: 08-11-2023 End: 08-12-2023 ambulatory Srinivasan Lezama Facility:[facility] [place] Start: 07-31-2023 End: 08-01-2023 ambulatory Roxane Heller Facility:[facility] [place] Start: 07-29-2023 End: 07-30-2023 ambulatory Srinivasan Lezama Facility:[place] Start: 07-29-2023 End: 07-29-2023 Lab Drop off Srinivasan Lezama [facility] Start: 07-23-2023 End: 07-24-2023 ambulatory Roxanetyoa Heller Facility:[place] Start: 07-23-2023 End: 07-23-2023 Lab Drop off Roxane Connell Arron [facility] Start: 07-11-2023 End: 07-12-2023 ambulatory YAIR R WATTAR Facility:[facility] Start: 06-17-2023 End: 06-17-2023 ambulatory YAIR R SHIV Facility:[facility] Start: 06-12-2023 End: 06-12-2023 ambulatory ISAAC MATSON Facility:[facility] Start: 06-12-2023 End: 06-12-2023 Patient encounter procedure Isaac Matson MD Work Phone: Neurology Comment on above: Dizziness and giddin ess (Primary Dx); Vertigo Start: 06-11-2023 End: 06-11-2023 ambulatory YAIR R WATTAR Facility:[facility] Start: 06-11-2023 End: 06-11-2023 ambulatory YAIR R WATTAR Facility:[facility] Start: 05-13-2023 End: 05-14-2023 ambulatory Srinivasan Lezama Facility:[facility] [place] Start: 05-12-2023 Telephone encounter Rachael figueroa MD Work Phone: Internal Medicine Comment on above: Request Outside [facility] Start: 04-30-2023 End: 05-01-2023 ambulatory Srinivasan Lezama Facility:[facility] [place] Start: 04-28-2023 End: 04-28-2023 ambulatory YAIR R WATTAR Facility:[facility] Start: 04-28-2023 End: 04-28-2023 Patient encounter procedure Rachael Chaney MD Work Phone: Cardiology Comment on above: Chest pain, unspecif ied type (Primary Dx); SOB (shortness of breath) Start: 04-02-2023 End: 04-03-2023 ambulatory Srinivasan Lezama Facility: [facility] Start: 03-25-2023 End: 03-26-2023 ambulatory Srinivasan Lezama Facility: [facility] Start: 03-24-2023 End: 03-24-2023 ambulatory ISAAC MATSON Facility:[facility] Start: 02-17-2023 End: 02-18-2023 ambulatory Roxane L Arron Facility: [facility] Start: 01-29-[address] JULIANO SHARMA . Facil ity:[facility] Start: 01-21-2023 End: 01-22-[address] JULIANO SHARMA . Facility: Start: 01-21-2023 End: 01-22-2023 ambulatory Roxane L Arron Facility: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] Start: 01-02-2023 End: 01-02-2023 ambulatory ISAAC MATSON Facility:[facility] Start: 12-23-2022 End: 12-23-2022 ambulatory ISAAC MATSON Facility:[facility] Start: 12-23-2022 End: 12-23-2022 Patient encounter procedure Isaac Matson MD Work Phone: Neurology Comment on above: Ataxia following cer ebral infarction (Primary Dx); Dizziness and giddiness; Vertigo Start: 11-20-2022 End: 11-21-2022 Orders Only Hema Good MD Work Phone: [facility] Comment on above: Dizziness (Primary D x) Start: 11-15-2022 End: 11-16-2022 ambulatory LAUREN MCCAULEY Facility:[facility] Start: 11-15-2022 End: 11-15-2022 Patient encounter procedure Lauren Mccauley PhD Work Phone: Audiology Comment on above: Dizziness (Primary D x); Head pains Start: 11-04-2022 End: 11-05-2022 ambulatory JULIANO SHARMA [facility]: [facility] Start: 10-29-2022 End: 10-30-[address] JULIANO SHARMA . Facility:[facility] Start: 07-02-2022 End: 07-31-[address] JULIANO [...] 10-01-2021 Colonoscopy Roxane lua Comment on above: [facility] Dilatation and curet tage: routine Roxane Heller Comment on above: pt states this was y ears ago Plan of Treatment Date Care Activity Detail Author Start: 05-07-2032 Urine microalbumin profile DTa P,Tdap,Td Vaccine (2 - Tdap) [facility] Start: 05-02-2023 Covid-19 Vaccine ( season) Covid-19 Vaccine ( season) [facility] Start: 05-02-2023 Influenza vaccination [facility] Start: 04-28-2023 End: 06-28-2023 Lipid 1996 panel - Serum or Plasma LIPID PANEL BASIC Lab Routine Chest pain, unspecified type Expected: 04/28/2023, Expires: 06/28/2023 [facility] Work Phone: Comment on above: Expected: 04/28/2023 , Expires: 06/28/2023 Start: 09-01-2022 ADVANCE DIRECTIVE DISCUSSION ADVANCE DIRECTIVE DISCUSSION [facility] Start: 09-01-2022 DEPRESSION ASSESSMENT DEPRESSION ASS ESSMENT [facility] Start: 07-20-2021 COVID-19 VACCINE (4 - Booster for Pfizer series) COVID-19 VACCINE (4 - Booster for Pfizer series) [facility] Start: 07-20-2021 COVID-19 VACCINE (4 - Pfizer series) COVID-19 VACCINE (4 - Pfizer series) [facility] Start: 2008 BONE DENSITY BONE DENSITY [facility] Start: 2008 Bone Density Screening Bone Density Screening [facility] Start: 2008 Pneumococcal Vaccine : 65+ (1 - PCV) Pneumococcal Vaccine: 65+ (1 - PCV) [facility] Start: 2008 PNEUMOCOCCAL: 65+ (1 - PCV) PNEUMOCOCCAL: 65+ (1 - PCV) [facility] Start: 2003 RSV Vaccine (1 - 1-d ose 60+ series) RSV Vaccine (1 - 1-dose 60+ series) [facility] Start: 1993 SHINGRIX VACCINE (1 of 2) LIGHT GRIX VACCINE (1 of 2) [facility] Start: 1988 DIABETES SCREEN DIABETES SCREEN [facility] Start: 1988 Diabetes Screening Diabetes Screenin g [facility] Start: 1962 Urine microalbumin profile [facility] End: 04-28-2024 ECG COMPLETE ECG COMPLETE ECG Routine Chest pain, unspecified type 1 Occurrences starting 04/28/2023 until 04/28/2024 [facility] Work Phone: Comment on above: 1 Occurrences starti ng 04/28/2023 until 04/28/2024 ECG COMPLETE ECG COMPLETE ECG 04/28/2023 2:42 PM EDT [facility] End: 04-28-2024 Echocardiography ECHO Cardiology Routine Chest pain, unspecified type 1 Occurrences starting 04/28/2023 until 04/28/2024 [facility] Work Phone: Comment on above: 1 Occurrences starti ng 04/28/2023 until 04/28/2024 Mri brain brain stem w/o contrast material MRI BRAIN WO IVCON Radiology Routine Ataxia following cerebral infarction Vertigo Ordered: 12/23/2022 [facility] Work Phone: Comment on above: Ordered: 12/23/2022 End: 05-27-2024 NM CARDIAC PERF STRESS/PHARM NM CARDIAC PERF STRESS/PHARM Radiology Routine Chest pain, unspecified type 1 Occurrences starting 04/28/2023 until 05/27/2024 [facility] Work Phone: Comment on above: 1 Occurrences starti ng 04/28/2023 until 05/27/2024 End: 12-24-2023 US CAROTID ARTERIES [facility] US CAROTID ARTERIES [facility] Vascular Lab Routine Ataxia following cerebral infarction Dizziness and giddiness 1 Occurrences starting 12/23/2022 until 12/24/2023 [facility] Work Phone: Comment on above: 1 Occurrences starti ng 12/23/2022 until 12/24/2023 [facility] Immunizations Immunization Date Immunization Notes Care Provider [facility] 11-20-2022 pneumococcal 20-janette nt conjugate vaccine Roxane Arron [facility] 06-21-2022 influenza virus vaccine, unspecified formulation Yair Chaney MD Work Phone: [facility] 05-25-2021 SARS-CoV-2 (COVID-19 ) mRNA BNT-162b2 vax Roxane Arron [facility] Comment on above: Result Comment: 2022: [id number] 05-18-2021 influenza virus vaccine, unspecified formulation Roxane Arron [facility] 10-20-2020 SARS-CoV-2 (COVID-19 ) mRNA BNT-162b2 vax Roxane Arron [facility] Comment on above: Result Comment: 2022: [id number] 09-29-2020 SARS-CoV-2 (COVID-19 ) mRNA BNT-162b2 vax Roxane Arron [facility] Comment on above: Result Comment: 2022: [id number] 06-06-2020 influenza virus vaccine, unspecified formulation Roxane Arron [facility] 05-26-2019 influenza virus vaccine, unspecified formulation Roxane Arron [facility] 2019 influenza virus vaccine, unspecified formulation Roxane Arron [facility] 05-14-2019 zoster vaccine recombinant Roxane Arron [facility] 03-18-2019 zoster vaccine recombinant Roxane Arron [facility] 06-02-2018 influenza virus vaccine, unspecified formulation Roxane Arron [facility] 06-12-2017 influenza virus vaccine, unspecified formulation Roxane Arron [facility] 06-10-2016 influenza virus vaccine, unspecified formulation Roxane Arron [facility] 08-10-2015 pneumococcal conjuga te vaccine, 13 valent Roxane Arron [facility] 06-07-2015 zoster vaccine, live Roxane Sc hwab [facility] 05-31-2015 influenza virus vaccine, unspecified formulation Roxane Arron [facility] Payers Date Payer Category Payer Private Health Insurance [id number] 2021 Medicare AETNA MEDICARE A ETNA MEDICARE PPO [id number] 2021-Present [phone] [address] [place] [address] PPO [id number] 1959 Medicare [id number] 1959 Unknown [id number] 1945 Unknown [id number] 2.16.840.1.867983.3.579.2.5 1945 Unknown [id number] 2.16.840.1.679411.3.579.2.5 1945 Unknown [id number] 2.16.840.1.349536.3.579.2.5 1943 Unknown [id number] 2.16.840.1.754334.3.579.2.5 1943 Unknown [id number] 2.16.840.1.235165.3.579.2.5 1943 Unknown [id number] 2.16.840.1.451422.3.579.2.5 1943 Unknown [id number] 2.16.840.1.253569.3.579.2.5 1945 Unknown [id number] 2.16.840.1.757944.3.579.2.5 1943 Unknown [id number] 2.16.840.1.600234.3.579.2.7 1943 Unknown [id number] 2.16.840.1.829420.3.579.2.7 1943 Unknown [id number] 2.16.840.1.744778.3.579.2.7 1943 Unknown [id number] 2.16.840.1.741296.3.579.2.7 1943 Unknown [id number] 2.16.840.1.950280.3.579.2.7 1943 Unknown [id number] 2.16.840.1.580356.3.579.2.7 1943 Unknown [id number] 2.16.840.1.058306.3.579.2.7 1943 Unknown [id number] 2.16.840.1.967051.3.579.2.7 1943 Unknown [id number] 2.16.840.1.297974.3.579.2.7 1945 Unknown [id number] 2.16.840.1.870163.3.579.2.7 1943 Unknown [id number] 2.16.840.1.106574.3.579.2.7 1943 Unknown [id number] 2.16.840.1.359004.3.579.2.7 1943 Unknown [id number] 2.16.840.1.950214.3.579.2.7 1943 Unknown [id number] 2.16.840.1.761510.3.579.2.7 1943 Unknown [id number] 2.16.840.1.515282.3.579.2.7 1943 Unknown [id number] 2.16.840.1.088286.3.579.2.7 1943 Unknown [id number] 2.16.840.1.644888.3.579.2.7 1943 Unknown [id number] 2.16.840.1.634649.3.579.2.7 1945 Unknown [id number] 2.16.840.1.358413.3.579.2.7 Social History Date Type Detail Facility Start: 06-12-2023 End: 07-23-2023 Tobacco smoking status OHIS Never smoked tobacco [facility] Work Phone: Comment on above: denies Start: 07-02-2006 End: 06-12-2023 Alcohol intake Not Asked [facility] Start: 1945 Sex Assigned At Not on file [facility] Start: 11-15-2022 End: 03-24-2023 History of Social function [facility] Start: 11-15-2022 End: 03-24-2023 Area Deprivation Index [facility] National Score (1-10 0), lower number is lower risk 61 [facility] Comment on above: denies Clinical Notes 11-15-2022 to 09-04-2023 Isaac Matson MD - 06/12/2023 3:10 PM EDTSIsaac aparicio MD - 06/12/2023 2:26 PM EDTTelephone Encounter - Josef Claire - 05/21/2023 9:59 AM ARYANTRachael Chaney MD - 04/28/2023 3:00 PM EDT Note Date & Type Note Facility 09-04-2023 Note [id number] [facility] 06-17-2023 Note HNO ID: [id number] Author: Rachael Chaney MD Service: ? Author Type: Physician Type: Progress Notes Filed: 06/17/2023 12:06 PM Note Text: [facility] Heart and Vascular [facility] Stepan Sharif Department of Cardiovascular Medicine SECTION OF REGIONAL CARDIOLOGY OUTPATIENT VISIT DATE June 17, 2023 OUTPATIENT VISIT TYPE ESTABLISHED HISTORY OF PRESENT ILLNESS: Dorie Root is a (an) 78 year old year old female who is here today for follow-up. She underwent stress nuclear test and echo. Presents with Last OV 04/28/23 Dorie Root is a 77 year old female from [place], [place] here today self referral. Has h/o [...] GUAR GUM, ORAL Take by mouth. Coenzyme H27-Myqdgkw E 100-5 mg-unit cap 2 gels Orally [...] due to body (more content not included)... [facility] 06-12-2023 Note HNO ID: [id number] Author: Isaac Matson MD Service: ? Author [...] VITAMIN D3 ORAL) Take by mouth. Coenzyme M55-Sgclcsc E 100-5 mg-unit cap 2 gels Orally [...] which included preparing to see the patient, [id number] patient care, completing clinical documentation, obtaining and/or [...] to the [place] (more content not included)... [facility] 06-12-2023 Note HNO ID: [id number] Author: Isaac Matson MD Service: ? Author [...] Probability Score: 30 (Sleep study not recommended) [facility] 06-12-2023 History of Present illness Narrative [...] VITAMIN D3 ORAL) Take by mouth. Coenzyme U25-Inntonf E 100-5 mg-unit cap 2 gels Orally [...] which included preparing to see the patient, ecxh-[id number] patient care, completing clinical documentation, obtaining and/or [...] study not recommended) documented in this encounter [facility] 06-11-2023 Note HNO ID: [id number] Author: Ricardo Concepcion RT(R) Service: Nuclear Medicine [...] POST EXAM PIV STATUS: Discontinued PROCEDURE TYPE: AR Stress: 12.9 mCi Gm62g-Ypxojtz was administered IV for Rest Imaging at 1235 by MB. 33.0 mCi Yw41j-Bnlddlr was administered IV for Stress Imaging at 1332 by MB. PATIENT DISCHARGED TO: Ambulatory patient, left AR department area. A Diagnostic radioactive procedure has taken place, with no further precautions necessary other than routine body substance precautions. More information regarding radiation safety can be found using this link: [email or web address] [email or web address] SIGNATURE: RT Edi(R) PATIENT NAME: Dorie Root DATE: June 11, 2023 TIME: 1:34 PM PAGER/CONTACT #: [facility] 05-21-2023 Miscellaneous Notes Medical records request has been sent. Fax confirmation was also scanned into pt chart Routing to PSS to assist. Dorie Root is calling Rachael Chaney MD today to request Dr. Chaney to request medical records from patient's visit at [facility] from 05.09.23. Please call patient for any additional questions. Fax number: [phone] Patient has been identified by name and birthdate. Duration of symptoms: N/A Person calling: self Call patient at: at home [phone] (home) [phone] (work) [phone] (cell) Was an appointment scheduled: No Closing statement: Results or non-symptom based questions: Thank you for calling [facility], your call will be returned within the next business day. Thank you, Emerita Haque documented in this encounter [facility] 04-28-2023 Note HNO ID: [id number] Author: Rachael Chaney MD Service: ? Author Type: Physician Type: Progress Notes Filed: 04/28/2023 5:38 PM Note Text: [facility] Heart and Vascular [facility] Department of Cardiovascular Medicine SECTION OF REGIONAL CARDIOLOGY OUTPATIENT VISIT DATE April 28, 2023 OUTPATIENT VISIT TYPE NEW PRIMARY CARE PHYSICIAN: Srinivasan Lezama MD REFERRING PHYSICIAN: No ref. provider found HISTORY OF PRESENT ILLNESS: Dorie Root is a 77 year old female from [place], [place] here today self referral. Has h/o [...] is a 77 year old female from [place], [place] here today self referral. Has h/o [...] - Will ch (more content not included)... [facility] 04-28-2023 History of Present illness Narrative Images from the original note were not included. [facility] Heart and Vascular [facility] Department of Cardiovascular Medicine SECTION OF [facility] CARDIOLOGY OUTPATIENT VISIT DATE April 28, 2023 OUTPATIENT VISIT TYPE NEW PRIMARY CARE PHYSICIAN: Srinivasan Lezama MD REFERRING PHYSICIAN: No ref. provider found HISTORY OF PRESENT ILLNESS: Dorie Root is a 77 year old female from [place], [place] here today self referral. Has h/o [...] is a 77 year old female from [place], [place] here today self referral. Has h/o [...] up This note was partially generated using [employer] voice recognition system, and there may be some incorrect words, spellings, and punctuation that were not noted in checking the note before saving. Yair Chaney M.D., F.A.C.C CONTACT INFORMATION: Leonel Chaney M.D., F.A.CZuleikaC. 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 [address] CC: Srinivasan Lezama [address] [place] [id number] documented in this encounter [facility] 03-24-2023 Note HNO ID: [id number] Author: Isaac Matson MD Service: ? Author [...] which included preparing to see the patient, [id number] patient care, completing clinical documentation, obtaining and/or reviewing separately obtained history, performing a medically appropriate examination, counseling and educating the patient/family/caregiver, and ordering medications, tests, or procedures. SIGNATURE: Isaac Matson MD PATIENT NAME: Dorie Root DATE: March 24, 2023 TIME: 1:43 PM [facility] 01-16-2023 Miscellaneous Notes Radiology Service Progress [...] Charles(R) MR January 16, 2023 1:25 PM documented in this encounter [facility] 12-23-2022 History and physical note NEUROLOGY CONSULT NOTE PATIENT NAME: Dorie Root DATE: December 23, 2022 PRIMARY CARE PHYSICIAN: Juliano Sharam MD REASON FOR CONSULT: Dizziness REQUESTING PHYSICIAN: [...] which included preparing to see the patient, [id number] patient care, completing clinical documentation, obtaining and/or reviewing separately obtained history, performing a medically appropriate examination, counseling and educating the patient/family/caregiver, and ordering medications, tests, or procedures. Signature Isaac Matson MD Staff, Neurology December 23, 2022 1:34 PM documented in this encounter [facility] 11-15-2022 Note HNO ID: [id number] Author: Lauren Mccauley, PhD Service: ? Author Type: Meat Smoker Type: Progress Notes Filed: 11/21/2022 7:44 AM Note Text: [facility] Disorders Laboratory Vestibular Test Battery Report Name: Dorie Root [facility]#: [id number] Date of Service: 11/15/2022 Date of : [...] right side of her head around the episcopal region that occurs very rarely, about once [...] risk. Additional general (more content not included)... [facility] 11-15-2022 Instructions Michela Richardson - 11/15/2022 1:48 PM EDT [facility] For the body [...] experience a fall. documented in this encounter [facility] 11-15-2022 History of Present illness Narrative [facility] Laboratory Vestibular Test Battery Report Name: Dorie Root [facility]#: [id number] Date of Service: 11/15/2022 Date of : 1945 Age: [age] year old Referred by: Hema Good MD And is a patient of Juliano Sharma MD Referred for: Evaluation of suspected change in hearing, tinnitus, or balance. Referral documented: In an order in [facility] Pretest Instructions: All pretest instructions were completed [...] right side of her head around the episcopal region that occurs very rarely, about once [...] vertical, oblique): normal Cover uncover test: normal Fjwko-qaqrj-mknlz test: normal Convergence test: normal NECK: Cervical [...] VESTIBULAR MEASURES: Videonystagmography Examination (VNG): CPT codes: 73237, 06929, 99132 Description of Procedure: objective assessment of peripheral [...] Vertical Semi-circular Canal BPPV Nystagmus tests: Nystagmus Dryden-Hallpike right ear down position: 3 d/s right-beating. Temporal profile: intermittent. Symptoms: none. Nystagmus Elijah-Hallpike right ear return to sit position: none Temporal profile: intermittent. Symptoms: none. Nystagmus Elijah-Hallpike left ear down position: 3 d/s left-beating. Temporal profile: intermittent. Symptoms: none. Nystagmus Dryden-Hallpike left ear return to sit position: none. Temporal profile: n/a. Symptoms: none. Horizontal Semi-circular Canal BPPV and Positional Nystagmus tests: Nystagmus head center supine: 3 d/s right-beating.Temporal profile: continuous. Symptoms: none. Nystagmus head (roll) right: none. Temporal profile: intermittent. Symptoms: none. Nystagmus head (roll) left: none. Temporal profile: n/a. Symptoms: none. Video Head Impulse Test (VHIT): CPT code: 53094 Description of Procedure: assessment of the angular [...] of corrective saccades. Rotational Chair: CPT code 66893 Description of Procedure: objective assessment of peripheral [...] regarding this information, please contact me at [phone]. MASOOD Lorenzo Doctor of Audiology ([place]) Computer Game Tester This appointment was conducted under the direct supervision of Lauren Mccauley PhD CCC-A I verify that I have reviewed the history, test results, and interpretation for this patient. Lauren Mccauley PhD CHATA-A Vestibular Meat Smoker Director, Vestibular and Balance Disorders Program [facility] copy to: Juliano Sharma MD [address] [place] [address] documented in this encounter [facility] Evaluation + Plan note Future Appointments Appointment Date:07/29/2023 10:40:00 AM Scheduled Provider: Location:[facility] Alfredo Appointment Type:FM Nurse Visit Appointment Date:08/12/2023 01:20:00 PM Scheduled Provider:Srinivasan Lezama MD Location:[facility] Alfredo Appointment Type: Open Appointment Date:07/23/2024 11:00:00 AM Scheduled Provider: Location:[facility] Alfredo Appointment Type:FM Medicare Wellness Subsequent [facility] Evaluation + Plan note Future Appointments Appointment Date:07/31/2023 02:00:00 PM Scheduled Provider: Location:[facility] Alfredo Appointment Type: Nurse Visit Appointment Date:08/12/2023 01:20:00 PM Scheduled Provider:Srinivasan Lezama MD Location:[facility] Alfredo Appointment Type: Open Appointment Date:07/23/2024 11:00:00 AM Scheduled [facility] App[facility] Type:FM Medicare Wellness Subsequent [facility] Evaluation note Diagnosis Dizziness- Primary Dizziness and giddiness documented in this encounter [facility] Diagnosis Dizziness- Primary Dizziness and giddiness Head pains documented [facility] this [facility] Diagnosis Ataxia following cerebral infarction- Primary Ataxia, late effect of cerebrovascular disease Dizziness and giddiness Vertigo Dizziness and giddiness documented in this encounter [facility]* Diagnosis Chest pain, unspecified type- Primary SOB (shortness of breath) Shortness of breath documented in this encounter [facility] note* Diagnosis Dizziness and giddiness- Primary Vertigo Dizziness and giddiness documented in this encounter [facility] course Narrative No data available for this section [facility] Dis[facility] instructions No data available for this section [facility] No data available for this section [facility] (n[facility]ative)* Outpatient Procedure (Routine) - Authorized Specialty Diagnoses / Procedures Referred By Linda villa Referred To Contact [facility] Diagnoses Ataxia following cerebral infarction Dizziness and giddiness Procedures US CAROTID ARTERIES ELSI VAS LAB DUPLEX SCAN EXTRACRANIAL [place] [address] [place] [address] [facility] [address] [place] [address] Referral ID Status Reason Start Date Expiration Date Visits Requested Visits Authorized [id number] Authorized Auto-Generat ed Referral 12/23/2022 12/23/2023 1 1 * MRI/CT (Routine) - Authorized Specialty Diagnoses / Procedures Referred By Linda villa Referred To Contact MR IMAGING Diagnoses Ataxia following cerebral infarction Vertigo Procedures MRI BRAIN WO IVCON MRI BRAIN BRAIN STEM W/[place] [address] [place] [address] Mr Imaging Referral ID Status Reason Start Date Expiration Date Visits Requested Visits Authorized [id number] Authorized Auto-Generat ed Referral 12/23/2022 01/22/2024 1 1 [facility] for referral (narrative)* Diagnostic Procedure Only (Routine) - Authorized Specialty Diagnoses / Procedures Referred By Linda villa Referred To Contact MOLECULAR & FUNCTIONAL IMAGING Diagnoses Chest pain, unspecified type Procedures NM CARDIAC PERF STRESS/PHARM MYOCARDIAL [place]PECT [place] [address] [place] [address] [facility] Functional [facility] [address] [place] [address] Referral ID Status Reason Start Date Expiration Date Visits Requested Visits Authorized [id number] Authorized Auto-Generat ed Referral 04/28/2023 05/27/2024 1 1 * Outpatient Procedure (Routine) - Authorized Specialty Diagnoses / Procedures Referred By Contac t Referred To Contact [facility] Diagnoses Chest pain, unspecified type Procedures ECHO ECHO TTHRC R-T 2D W/WOM-MODE COMPL SPEC&[place] [address] [place] [address] [facility] [address] [place] [address] Referral ID Status Reason Start Date Expiration Date Visits Requested Visits Authorized [id number] Authorized Auto-Generat ed Referral 04/28/2023 04/27/2024 1 1 * Outpatient Procedure (Routine) - Closed Specialty Diagnoses / Procedures Referred By Contac t Referred To Contact [facility] Diagnoses Chest pain, unspecified type Procedures ECG COMPLETE ECG ROUTINE ECG W/LEAST 12 LDS W/I&[place] [address] [place] [address] [address] Referral ID Status Reason Start Date Expiration Date V isits Requested Visits Authorized [id number] Closed Auto-Generate d Referral 04/28/2023 04/27/2024 1 1 [facility] Summary Purpose Family History No Family History [...] Diagnoses Dizziness Procedures CONSULT TO NEUROLOGY OFFICE/OUTPATIENT [facility] 60-74 MINUTES Hema Good MD [address] [place] [address] Referral ID Status Reason Start Date Expiration Date Visits Requested Visits Authorized [id number] Pending Review PCP Requested Referral 11/20/2022 11/20/2023 1 1 Additional Source Comments INFORMATION SOURCE (unrecogn ized section and content) DATE CREATED AUTHOR 11/18/2021 [facility] DATE CREATED AUTHOR AUTHOR'S ORGANIZ ATION 02/08/2023 [facility] DATE CREATED AUTHOR AUTHOR'S ORGANIZ ATION 06/18/2023 [facility] DATE CREATED AUTHOR AUTHOR'S ORGANIZ ATION 07/13/2023 [facility] DATE CREATED AUTHOR AUTHOR'S ORGANIZ ATION 09/09/2023 [facility] Source Comments (unrecognize d section and content) In the event this informatio n is protected by the Federal Confidentiality of Alcohol and Drug Abuse Patient Records regulations: The Federal rules restrict any use of the information to criminally investigate or prosecute any alcohol or drug abuse patient.[facility] the event this information is protected by the Federal Confidentiality of Alcohol and Drug Abuse Patient Records regulations: The Federal rules restrict any use of the information to criminally investigate or prosecute any alcohol or drug abuse patient.[facility] the event this information is protected by the Federal Confidentiality of Alcohol and Drug Abuse Patient Records regulations: The Federal rules restrict any use of the information to criminally investigate or prosecute any alcohol or drug abuse patient.[facility] the event this information is protected by the Federal Confidentiality of Alcohol and Drug Abuse Patient Records regulations: The Federal rules restrict any use of the information to criminally investigate or prosecute any alcohol or drug abuse patient.[facility] the event this information is protected by the Federal Confidentiality of Alcohol and Drug Abuse Patient Records regulations: The Federal rules restrict any use of the information to criminally investigate or prosecute any alcohol or drug abuse patient.[facility] the event this information is protected by the Federal Confidentiality of Alcohol and Drug Abuse Patient Records regulations: The Federal rules restrict any use of the information to criminally investigate or prosecute any alcohol or drug abuse patient.[facility] the event this information is protected by the Federal Confidentiality of Alcohol and Drug Abuse Patient Records regulations: The Federal rules restrict any use of the information to criminally investigate or prosecute any alcohol or drug abuse patient.[facility] Teams (unrecognized sec tion and content) Remedial Teacher Relationship Specialty Start Date End Date Juliano Sharma MD [address] [place], [place] [id number] PCP - General 06/02/06 Remedial Teacher Relationship Specialty Start Date End Date Juliano Sharma MD [address] [place], [place] [id number] PCP - General 06/02/06 Remedial Teacher Relationship Specialty Start Date End Date Juliano Sharma MD [address], [place] [id number] PCP - General 06/02/06 Remedial Teacher Relationship Specialty Start Date End Date Srinivasan Lezama MD [facility] [place] [address] PCP - General Family Medicine 03/24/23 Remedial Teacher Relationship Specialty Start Date End Date Srinivasan Lezama MD [address] [place] [address] PCP - General Family Medicine 03/24/23 Remedial Teacher Relationship Specialty Start Date End Date Juliano Sharma MD [address], [place] [id number] PCP - General 06/02/06 03/23/23 Reason for Visit (unrecogniz ed section and content) Reason Comments Dizziness Reason Comments New Patient Evaluation Reason Comments CARD New Patient Consult Reason Comments Request Outside Medical Records Reason Comments Established Patient Specialty Diagnoses / Procedures Referred By Linda villa Referred To Contact MR IMAGING Diagnoses Ataxia following cerebral infarction Vertigo Procedures MRI BRAIN WO IVCON MRI BRAIN BRAIN STEM W/[place] [address] [place] [address] [place] [address] Referral ID Status Reason Start Date Expiration Date V isits Requested Visits Authorized [id number] Closed Auto-Generate d Referral 12/23/2022 01/22/2024 1 [...] BE BASED ON THE PRIMARY CLINICAL RECORDS. [employer] provides no warranty or guarantee of the accuracy or completeness of information in this document.
== END 2023-09-11 11:10 | disposition home or self-care (01) ==
LOC: RAD 11:09
PROVIDERS: PCP Family Medicine; Visit Provider Physician Assistant
DX: M25.571 Pain in right ankle and joints of right foot (principal); M79.671 Pain in right foot; M25.472 Effusion, left ankle
CPT/HCPCS: 73610; 73630

== ENCOUNTER 2023-09-26 12:19 | Outpatient (RCR) | payer MEDICARE, SELFPAY | END 2023-12-10 13:31 | disposition home or self-care (01) | LOC: PT 12:19 | PROVIDERS: PCP Family Medicine; Visit Provider Podiatrist Foot & Ankle Surgery | DX: S82.891D Other fracture of right lower leg, subsequent encounter for closed fracture with routine healing (principal) | CPT/HCPCS: 97010; 97110; 97112; 97140; 97162; 97530 ==

== ENCOUNTER 2023-12-10 13:09 | Outpatient (OUT) | payer MEDICARE, SELFPAY ==
--- NOTE | 2023-12-10 | XR_ITS ---
[address] [address] Patient Name: JASIEL ROOT MRN: [id number] date: 1945 Sex: F Assigned Patient Location: Current Patient Location: Accession/Order Number: [id number] Exam Date: 12/10/2023 13:12 Report Date: 12/10/2023 14:42 At the request of: ASTRID NINO Procedure: XR ankle RT min 3V PROCEDURE: XR ankle RT min 3V COMPARISON: 09/11/2023 HISTORY: RIGHT ANKLE PAIN FINDINGS: BONES:No acute fracture or dislocation. Calcific density along the inferior medial malleolus is stable. Mild enthesopathic spurring of the calcaneus at the Achilles tendon SOFT TISSUES:Mild soft tissue swelling EFFUSION:Small tibiotalar joint effusion OTHER: Negative. XR/XR ankle RT min 3V IMPRESSION: Small joint effusion Electronically authenticated by: AN BEVERLY Date: 12/10/2023 14:42
== END 2023-12-10 13:10 | disposition home or self-care (01) ==
LOC: EC 13:10
PROVIDERS: PCP Family Medicine; Visit Provider Podiatrist Foot & Ankle Surgery
DX: M25.571 Pain in right ankle and joints of right foot (principal); M25.471 Effusion, right ankle
CPT/HCPCS: 73610

== ENCOUNTER 2024-03-11 08:12 | Outpatient (OUT) | payer MEDICARE, SELFPAY ==
--- NOTE | 2024-03-11 | XR_ITS ---
The [address] [address] Patient Name: JASIEL ROOT MRN: [id number] date: 1945 Sex: F Assigned Patient Location: Current Patient Location: Accession/Order Number: [id number] Exam Date: 03/11/2024 13:55 Report Date: 03/11/2024 16:53 At the request of: GERRY PRATT Procedure: XR foot RT min 3V EXAMINATION: XR foot RT min 3V, XR foot LT min 3V HISTORY: RIGHT FOOT PAIN COMPARISON: 09/11/2023 FINDINGS: RIGHT FINDINGS: BONES: No acute fracture or dislocation. Moderate hallux valgus. Moderate osteoarthropathy first metatarsal-phalangeal joint SOFT TISSUES: Negative. No visible soft tissue swelling. OTHER: Negative. LEFT FINDINGS: BONES: No acute fracture or dislocation. Mild hallux valgus. Mild to moderate osteoarthropathy first metatarsal-phalangeal joint SOFT TISSUES: Negative. No visible soft tissue swelling. OTHER: Negative. 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
--- NOTE | 2024-03-11 | XR_ITS ---
The [address] [address] Patient Name: JASIEL ROOT MRN: [id number] date: 1945 Sex: F Assigned Patient Location: Current Patient Location: Accession/Order Number: [id number] Exam Date: 03/11/2024 14:05 Report Date: 03/11/2024 16:53 At the request of: GERRY PRATT Procedure: XR foot LT min 3V EXAMINATION: XR foot RT min 3V, XR foot LT min 3V HISTORY: RIGHT FOOT PAIN COMPARISON: 09/11/2023 FINDINGS: RIGHT FINDINGS: BONES: No acute fracture or dislocation. Moderate hallux valgus. Moderate osteoarthropathy first metatarsal-phalangeal joint SOFT TISSUES: Negative. No visible soft tissue swelling. OTHER: Negative. LEFT FINDINGS: BONES: No acute fracture or dislocation. Mild hallux valgus. Mild to moderate osteoarthropathy first metatarsal-phalangeal joint SOFT TISSUES: Negative. No visible soft tissue swelling. OTHER: Negative. 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
== END 2024-03-11 08:13 | disposition home or self-care (01) ==
LOC: EC 08:13
PROVIDERS: PCP Family Medicine; Visit Provider Physician Assistant
DX: M79.671 Pain in right foot (principal); M79.672 Pain in left foot; M20.12 Hallux valgus (acquired), left foot; M20.11 Hallux valgus (acquired), right foot; M19.072 Primary osteoarthritis, left ankle and foot; M19.071 Primary osteoarthritis, right ankle and foot
CPT/HCPCS: 73630

== ENCOUNTER 2025-02-03 21:33 | Emergency (ER) | payer MEDICARE, SELFPAY ==
--- OUTSIDE RECORDS SUMMARY | 2023-10-30 06:40 | XMS_ITS ---
Author Organization [facility] [place] Address [address] [place] [address] Care Team Providers Care Child Psychologist Name Role Phone Ok Hollins MD Primary Care Provider Erica Santos Unavailable [phone] Allergies No Known Allergies Reason For Referral Reason referral Diagnosis 1 Torus fracture of lo wer end of right fibula, subsequent encounter for fracture with routine healing (S82.820G) Referral Organization [facility] [place] (POD[facility]) Referring Provider First Name Erica Referring Provider Last Name Mihai Referring Provider Speciality Podiatry Referred Provider [facility], Physical Therap y Referred Provider Specialty Physical Med icine and Rehabilitation Referral Priority Routine Referral Appointment Date 11/06/2023 REASON FOR VISIT 4 week f/u Medications Medication SIG (Take, Route, Frequency, Duration) Notes Start Date End Date Status Co Q 10 Active Linzess 72 MCG TAKE 1 CAPSULE BY MO UTH EVERY DAY Oral for 30 Days Active Lisinopril-hydroCHLOROthiaz rome 10-12.5 MG Oral for 90 Days Active hydrOXYzine HCl 10 MG TAKE 1 TABLET BY M OUTH 4 TIMES A DAY NEEDED FOR ANXIETY Oral for 22 Days Active Klor-Con M20 20 MEQ Oral for 5 Days Active Symbicort 80-4.5 MCG/ACT Inhalation for 90 Days Active Benefiber Active Topiramate 50 MG TAKE 1 TABLET BY ALEJANDRO TH EVERYDAY AT BEDTIME Oral for 30 Days Active Albuterol Sulfate HFA 108 (90 Base) MCG/ACT INHALE 2 PUFFS BY MOUTH EVERY 4 HOURS NEEDED Inhalation for 16 Days Active Multivitamin Active Prevalite 4 GM/DOSE MIX & DRINK 4GM IN L IQUID DAILY Oral for 30 Days Active Social History Tobacco Use: Social History Observation Description Date Details (start date - stop date) Never Smoker NA - NA Tobacco Use/Smoking Question Answer Notes Patient is a nonsmoker Problems Problem Type SNOMED Code ICD Code Onset Dates Problem Status W/U Status Risk Notes Problem [id number] Torus fracture of lower end of right fibula, subsequent encounter for fracture with routine healing (S82.821D) Active confirmed Vital Signs Weight 109 lbs 10/30/2023 Height 62 in 10/30/2023 Temperature 97 degrees Fahrenheit 10/30/2023 Heart Rate 70 /min 10/30/2023 BMI 19.93 kg/m2 10/30/2023 Encounters Encounter Location Date Provider Diagnosis [facility] [place] [facility] ([facility]) [address] [place] [address] [place] [address] 10/30/2023 Erica Holm Torus fracture of lower end of right fibula, subsequent encounter for fracture with routine healing S82.821D Assessments Encounter Date Diagnosis (ICD Code) Assessment Notes Treatment Notes Treatment Clinical Notes Section Notes 10/30/2023 Torus fracture of lower end of right fibula, subsequent encounter for fracture with routine healing (ICD-10 - S82.821D) Ms. Root presents for reevaluation of right fibular avulsion fracture, DOS: 09/02/23. She states her pain and swelling continue to improve. She uses the CAM boot when leaving the house but therwise wears normal shoes. She completed PT and feels it helped. I recommend she continue PT until she is able to completely transition to normal shoes. Followup with Dr. Mas in 4-6 weeks, sooner if any issues arise. She is agreeable with the plan. Plan Of Treatment Treatment Notes Assessment Notes Torus fracture of lower end of right fibula, subsequent encounter for fracture with routine healing Ms. Root presents for reevaluation of right fibular avulsion fracture, DOS: 09/02/23. She states her pain and swelling continue to improve. She uses the CAM boot when leaving the house but therwise wears normal shoes. She completed PT and feels it helped. I recommend she continue PT until she is able to completely transition to normal shoes. Followup with Dr. Mas in 4-6 weeks, sooner if any issues arise. She is agreeable with the plan. Referrals Referral Date Details 10/31/2023 10/31/2023, referral , Physical Therapy [facility] Next Appt Details Follow Up: 4 Weeks, Reason: Progress Notes * Pepe ROOTOB:1945 (78 yo F)Acc No.[id number]:10/30/2023 Follow Up Patient: Dorie Smith Provider: Mary Holm PA-C :1945 A ge:78 Y S ex:Female Date:10/30/2023 Address:[address] [place], [place] [address], [id number] Pcp:Ok Hollins MD Check In:10:46 AM ESTCheck O ut:11:07 AM EST Subjective: * Chief Complaints: * 4 week f/u * HPI: G eneral: follow up right ankle injury DOI 09/02/23. tripped on curb at gas station and rolled it. Avulsion fracture of lower end of right fibula, closed fracture. PT states has been doing well with cam boot and cane. Denies pain today. She is doing well. * ROS: G eneral/Constitutional: Chills d enies. F ever d enies. W eight gain?denies. W eight loss d enies. S kin: Skin Ulcers d enies. S kin lesion(s) d enies. ? C ardiovascular: Difficulty breathing on exertion d enies. L eg cramps?denies. E araceli d enies. C hest pain d enies. R espiratory: Difficulty breathing d enies. D yspnea d enies.?Cough d enies. G astrointestinal: Diarrhea d enies. N ausea d enies. V omiting?denies. M usculoskeletal: Bone/Joint Symptoms d enies. C long term Pain d enies.?Leg cramps d enies. N eurologic: Numbness d enies. T ingling d enies . G ait abnormality d enies. ? H ematology: Anemia D enies. E asy bruising d enies. ? A ll Other Systems: Review of Systems (ROS) S ee HPI for details,All others negative except those mentioned in HPI. * Active Problem List D53.675R Torus fracture of lo wer end of right fibula, subsequent encounter for fracture with routine healing Modified On:10/30/2023W/U Status:confirmed * Medical History: * Surgical History: D &C colonoscopy * Hospitalization/Major Diagno stic Procedure: D enies Past Hospitalization * Family History: N o Family History documented.. * Social History: T obacco Use: T obacco Use/Smoking P atient is a n onsmoker * Medications: T akingAlbuterol Sulfate HFA 108 (90 Base) MCG/ACT Aerosol Solution INHALE 2 PUFFS BY MOUTH EVERY 4 HOURS NEEDED Inhalation Benefiber Co Q 10 hydrOXYzine HCl 10 MG Tablet TAKE 1 TABLET BY MOUTH 4 TIMES A DAY NEEDED FOR ANXIETY Oral Klor-Con M20(Potassium Chloride Loretta ER) 20 MEQ Tablet Extended Release Oral Linzess(linaCLOtide) 72 MCG Capsule TAKE 1 CAPSULE BY MOUTH EVERY DAY Oral Lisinopril-hydroCHLOROthiazide 10-12.5 MG Tablet Oral Multivitamin Prevalite(Cholestyramine Light) 4 GM/DOSE Powder MIX & DRINK 4GM IN LIQUID DAILY Oral Symbicort(Budesonide-Formoterol Fumarate) 80-4.5 MCG/ACT Aerosol Inhalation Topiramate 50 MG Tablet TAKE 1 TABLET BY MOUTH EVERYDAY AT BEDTIME Oral Taking Albuterol Sulfate HFA 108 (90 Base) MCG/ACT Aerosol Solution INHALE 2 PUFFS BY MOUTH EVERY 4 HOURS NEEDED Inhalation Taking Benefiber Taking Co Q 10 Taking hydrOXYzine HCl 10 MG Tablet TAKE 1 TABLET BY MOUTH 4 TIMES A DAY NEEDED FOR ANXIETY Oral Taking Klor-Con M20(Potassium Chloride Loretta ER) 20 MEQ Tablet Extended Release Oral Taking Linzess(linaCLOtide) 72 MCG Capsule TAKE 1 CAPSULE BY MOUTH EVERY DAY Oral Taking Lisinopril-hydroCHLOROthiazide 10-12.5 MG Tablet Oral Taking Multivitamin Taking Prevalite(Cholestyramine Light) 4 GM/DOSE Powder MIX & DRINK 4GM IN LIQUID DAILY Oral Taking Symbicort(Budesonide-Formoterol Fumarate) 80-4.5 MCG/ACT Aerosol Inhalation Taking Topiramate 50 MG Tablet TAKE 1 TABLET BY MOUTH EVERYDAY AT BEDTIME Oral DiscontinuedAmoxicillin 500 MG Capsule TAKE 4 CAPSULES BY MOUTH 1 HOUR PRIOR TO DENTAL APPOINTMENT Oral Medication List reviewed and reconciled with the patientDiscontinued Amoxicillin 500 MG Capsule TAKE 4 CAPSULES BY MOUTH 1 HOUR PRIOR TO DENTAL APPOINTMENT Oral Medication List reviewed and reconciled with the patient * Allergies: N .K.D.A.no[Allergies Verified] Objective: * Vitals: W t:109 lbs, Ht: 62 in, Temp:97 F, HR:70 /min, BMI:19.93 Index, Pain scale:0 1-10, Ht-cm: 157.48 cm, Wt-k.44 kg. * Examination: P odiatry Examination: SKIN: s kin intact, n o sign of infection. MUSCULOSKELETAL: m ild swelling lateral ankle no pain with palpation strength 5-/5 in eversion against resistance. NEUROLOGICAL: L ight touch sensation is intact in all nerve distributions, Negative Tinel sign. VASCULAR: P alpable pedal pulses, No swelling, No calf pain on squeeze. Assessment: * Assessment: 1. T orus fracture of lower end of right fibula, subsequent encounter for fracture with routine healing - S82.821D (Primary) Plan: * Treatment: * Procedure Codes: * Follow Up: 4 Weeks * * Sign off status: Completed Visit Status: C HK (Check Out) true * Provider: Mary Holm PA-C Date: 0 10/30/2023 Generated for Serafin giraldo/Kari/Dionteitting on: 0 02/03/2025 09:38 PM EDT History and Physical Notes * HPI (History of Present Illness) Category Sub-Category Detail Notes Category Not es General follow up right ankle injury DOI 09/02/23. tripped on curb [place] [employer] and rolled it. Avulsion fracture of lower end of right fibula, closed fracture. PT states has been doing well with cam boot and cane. Denies pain today. She is doing well. Examination Category Sub-Category Detail Notes Category Not es Podiatry Examination SKIN: skin intact, no sign of infection MUSCULOSKELETAL: mild swelling latera l ankle no pain with palpation strength 5- /5 in eversion against resistance NEUROLOGICAL: Light touch sensatio n is intact in all nerve distributions, Negative Tinel sign VASCULAR: Palpable pedal pulse s, No swelling, No calf pain on squeeze Consultation Request Notes Referral Date Referring Provider Referred Provider Not es 10/31/2023 Erica Holm [facility], Physical Therapy carlos
--- OUTSIDE RECORDS SUMMARY | 2023-12-10 09:00 | XMS_ITS ---
Author Organization The [facility] in [place] Address [address] [place] [address] Care Team Providers Care Refractory Grinder Operator Name Role Phone Ok Hollins MD Primary Care Provider Asaf Bates [phone] Allergies No Known Allergies Results Component Value Reference Range Notes XR Ankle RT (3 views) * (161 ) Reviewed date:12/11/2023 03:18:04 PM Interpretation: Performing Lab: Notes/Report: REASON FOR VISIT 6 week f/u Medications Medication SIG (Take, Route, Frequency, Duration) Notes Start Date End Date Status Topiramate 50 MG TAKE 1 TABLET BY ALEJANDRO TH EVERYDAY AT BEDTIME Oral for 30 Days Active Symbicort 80-4.5 MCG/ACT Inhalation for 90 Days Active Prevalite 4 GM/DOSE MIX & DRINK 4GM IN L IQUID DAILY Oral for 30 Days Active Multivitamin Active Lisinopril-hydroCHLOROthiaz rome 10-12.5 MG Oral for 90 Days Active Benefiber Active Co Q 10 Active Klor-Con M20 20 MEQ Oral for 5 Days Active hydrOXYzine HCl 10 MG TAKE 1 TABLET BY M OUTH 4 TIMES A DAY NEEDED FOR ANXIETY Oral for 22 Days Active Linzess 72 MCG TAKE 1 CAPSULE BY MO UTH EVERY DAY Oral for 30 Days Active Albuterol Sulfate HFA 108 (90 Base) MCG/ACT INHALE 2 PUFFS BY MOUTH EVERY 4 HOURS NEEDED Inhalation for 16 Days Active Social History Tobacco Use: Social History Observation Description Date Details (start date - stop date) Never Smoker NA - NA Tobacco Use/Smoking Question Answer Notes Patient is a nonsmoker Vital Signs Weight 109 lbs 12/10/2023 Height 62 in 12/10/2023 Temperature 97.8 degrees Fahrenheit 12/10/19 24 Heart Rate 73 /min 12/10/2023 BMI 19.93 kg/m2 12/10/2023 Oximetry 99 % 12/10/2023 Encounters Encounter Location Date Provider Diagnosis [facility] (PODIATRY) [address] [place] [address] [place] [address] 12/10/2023 Asaf Mas Ankle pain, right M25.571 and Torus fracture of lower end of right fibula, subsequent encounter for fracture with routine healing S82.821D Assessments Encounter Date Diagnosis (ICD Code) Assessment Notes Treatment Notes Treatment Clinical Notes Section Notes 12/10/2023 Ankle pain, right (ICD-10 - M25.571) 12/10/2023 Torus fracture of lower end of right fibula, subsequent encounter for fracture with routine healing (ICD-10 - S82.821D) Patient examined and evaluated. All findings discussed with patient all questions answered to patient's satisfaction.Clin ical exam and x-ray findings discussed with patient.Patient presents today for follow-up regarding right distal fibular avulsion fracture, she recently completed physical therapy which she states helped her considerably and no longer having any pain. She does feel stiffness from time to time and I encouraged her to keep up with eccentric stretching as well as ice, elevation, And OTC Tylenol or anti-inflammatori es as needed.She may continue with activity as tolerated in regular shoe gear without restrictions.Like her to follow-up on as-needed basis if any new issues or concerns arise. Plan Of Treatment Treatment Notes Assessment Notes Torus fracture of lower end of right fibula, subsequent encounter for fracture with routine healing Patient examined and evaluated. All findings discussed with patient all questions answered to patient's satisfaction.Clinical exam and x-ray findings discussed with patient.Patient presents today for follow-up regarding right distal fibular avulsion fracture, she recently completed physical therapy which she states helped her considerably and no longer having any pain. She does feel stiffness from time to time and I encouraged her to keep up with eccentric stretching as well as ice, elevation, And OTC Tylenol or anti-inflammatories as needed.She may continue with activity as tolerated in regular shoe gear without restrictions.Like her to follow-up on as-needed basis if any new issues or concerns arise. Progress Notes * [place] ROOT:1945 (78 yo F)Acc No.[id number]:12/10/2023 Follow Up Patient: Dorie DAVIS Provider: Pardeep Mas DPM, MS :1945 A ge:78 Y S ex:Female Date:12/10/2023 Address:[address] [place], [place] [address], [id number] Pcp:Ok Hollins MD Check In:12:51 PM ESTCheck O ut:01:36 PM EST Subjective: * Chief Complaints: * 6 week f/u * HPI: G eneral: Patient in office today for follow up evaluation of right foot and ankle pain. Patient reports she doing well. Patient finished her physical therapy sessions and believes she is discharged. She has minimal pain, if at all it is medial ankle. Minimal edema. Foot and toes also feel better. No medication or health changes. * ROS: G eneral/Constitutional: Chills d enies. [...] M usculoskeletal: Bone/Joint Symptoms d enies. C rome Pain d enies.?Leg cramps d enies. N eurologic: Numbness d enies. T ingling d enies . G ait abnormality d enies. ? H ematology: Anemia D enies. E asy bruising d enies. ? A ll Other Systems: Review of Systems (ROS) S ee HPI for details,All others negative except those mentioned in HPI. * Active Problem List S82.821D Torus fracture of lo wer end of right fibula, subsequent encounter for fracture with routine healing Modified On:10/30/2023W/U Status:confirmed * Medical History: * Surgical History: D &C colonoscopy * Hospitalization/Major Diagno stic Procedure: * Family History: N o Family History [...] TABLET BY MOUTH EVERYDAY AT BEDTIME Oral Medication List reviewed and reconciled with the patientTaking Albuterol Sulfate HFA 108 (90 Base) MCG/ACT [...] TABLET BY MOUTH EVERYDAY AT BEDTIME Oral Medication List reviewed and reconciled with the patient * Allergies: N .K.D.A.no[Allergies Verified] Objective: * Vitals: W t:109lbs, Ht: 62 in, Temp:97.8F, HR:73/min, BMI:19.93Index, Pain scale:01-10, Oxygen sat %:99%, Ht-cm: 157.48 cm, Wt-k.44 kg. * Examination: P odiatry Examination: SKIN: s kin intact, n o sign of infection. MUSCULOSKELETAL: S trength 5/5 for 4 pedal groups. Ankle subtalar range of motion supple without pain or crepitus. No palpatory tenderness elicited upon exam. Negative anterior drawer. Compartment soft compressible, no pain with calf or thigh compression. . NEUROLOGICAL: L ight touch sensation is intact in all nerve distributions, Negative Tinel sign. VASCULAR: P alpable pedal pulses, No swelling, No calf pain on squeeze. X -ray: 3 views of the right ankle obtained reviewed in office today. Demonstrates a small avulsion fragment of the distal aspect of the lateral malleolus, no change in position or alignment since previous. Ankle mortise remains intact, no other fractures dislocations noted. Assessment: * Assessment: 1. T orus fracture of lower end of right fibula, subsequent encounter for fracture with routine healing - S82.821D (Primary) 2 . A nkle pain, right - M25.571 Plan: * Treatment: 2. A nkle pain, right I maging: XR Ankle RT (3 views) * (161) (Performed Date - 12/10/2023) * Procedure Codes: * * Sign off status: Completed Visit Status: C HK (Check Out) true * Provider: Pardeep Mas DPM, MS Date: 0 12/10/2023 Generated for Serafin giraldo/Kari/Dionteitting on: 0 02/03/2025 09:38 PM EDT History and Physical Notes * Examination Category Sub-Category Detail Notes Category Not es Podiatry Examination SKIN: skin intact, no sign of infection X-ray: 3 views of the right ankle obtained reviewed in office today. Demonstrates a small avulsion fragment of the distal aspect of the lateral malleolus, no change in position or alignment since previous. Ankle mortise remains intact, no other fractures dislocations noted. MUSCULOSKELETAL: Strength 5/5 for 4 p edal groups. Ankle subtalar range of motion supple without pain or crepitus. No palpatory tenderness elicited upon exam. Negative anterior drawer. Compartment soft compressible, no pain with calf or thigh compression. NEUROLOGICAL: Light touch sensatio n is intact in all nerve distributions, Negative Tinel sign VASCULAR: Palpable pedal pulse s, No swelling, No calf pain on squeeze
--- OUTSIDE RECORDS SUMMARY | 2024-03-11 09:40 | XMS_ITS ---
Author Organization The [facility] in [place] Address [address] [place] [address] Care Team Providers Care Vault Cashier Name Role Phone Ok Hollins MD Primary Care Provider Erica Santos Unavailable [phone] Allergies No Known Allergies Results Component Value Reference Range Notes XR Foot LT (3 views) * Reviewed date:11/09/2024 08:39:43 AM Interpretation: Performing Lab: Notes/Report: XR Foot RT (3 views) * Reviewed date:04/06/2024 09:35:02 AM Interpretation: Performing Lab: Notes/Report: REASON FOR VISIT b/l foot pain Medications Medication SIG (Take, Route, Frequency, Duration) Notes Start Date End Date Status Prevalite 4 GM/DOSE MIX & DRINK 4GM IN L IQUID DAILY Oral for 30 Days Active Multivitamin Active Topiramate 50 MG TAKE 1 TABLET BY ALEJANDRO TH EVERYDAY AT BEDTIME Oral for 30 Days Active Cephalexin 500 MG 1 capsule Orally bid for 7 days 03/11/2024 Active Symbicort 80-4.5 MCG/ACT Inhalation for 90 Days Active Lisinopril-hydroCHLOROthiaz rome 10-12.5 MG Oral for 90 Days Active Linzess 72 MCG TAKE 1 CAPSULE BY MO UTH EVERY DAY Oral for 30 Days Active Klor-Con M20 20 MEQ Oral for 5 Days Active hydrOXYzine HCl 10 MG TAKE 1 TABLET BY M OUTH 4 TIMES A DAY NEEDED FOR ANXIETY Oral for 22 Days Active Co Q 10 Active Benefiber Active Albuterol Sulfate HFA 108 (90 Base) [...] Problem Status W/U Status Risk Notes Problem [id number] Hallux valgus (acquired), right foot (M20.11) Active confirmed Problem 594699045 Other hammer toe(s) (acquired), right foot (M20.41) Active confirmed Vital Signs Weight 108 lbs 03/11/2024 Height 62 in 03/11/2024 Heart Rate 74 /min 03/11/2024 Respiratory Rate 16 /min 03/11/2024 BMI 19.75 kg/m2 03/11/2024 Oximetry 98 % 03/11/2024 Encounters Encounter Location Date Provider Diagnosis [facility] (PODIATRY) [address] [place] [address] [place] [address] 03/11/2024 Erica Holm Cellulitis of left toe L03.032 ; Hallux valgus (acquired), right foot M20.11 ; Other hammer toe(s) (acquired), right foot M20.41 ; Foot pain, right M79.671 and Left foot pain M79.672 Assessments Encounter Date Diagnosis (ICD Code) Assessment Notes Treatment Notes Treatment Clinical Notes Section Notes 03/11/2024 Cellulitis of left toe (ICD-10 - L03.032) The patient presents with suspected ingrown toenail. She complains of persistent pain and swelling of the medial nail fold. No overt evidence of paronychia, however the surrounding tissue does look mildly cellulitic. The toenail was trimmed in a slant back fashion. No purulence encountered. She was started empirically on Keflex. 03/11/2024 Hallux valgus (acquired), right foot (ICD-10 - M20.11) The patient also complains of toes 1 and 2 rubbing together painfully on the right foot. She has a bunion with crowding of the lesser toes. She was provided with a silicone toe sleeve and toe spacer to try for comfort. Follow-up with Dr. Mas if this is not adequate in providing pain relief. 03/11/2024 Other hammer toe(s) (acquired), right foot (ICD-10 - M20.41) 03/11/2024 Foot pain, right (ICD-10 - M79.671) 03/11/2024 Left foot pain (ICD-10 - M79.672) Plan Of Treatment Medication Medication Name Sig Start Date Stop Date Notes Cephalexin 500 MG 1 capsule Orally bid for 7 days 03/11/20 24 Treatment Notes Assessment Notes Cellulitis of left toe The patient prese nts with suspected ingrown toenail. She complains of persistent pain and swelling of the medial nail fold. No overt evidence of paronychia, however the surrounding tissue does look mildly cellulitic. The toenail was trimmed in a slant back fashion. No purulence encountered. She was started empirically on Keflex. Hallux valgus (acquired), right foot The patient also complains of toes 1 and 2 rubbing together painfully on the right foot. She has a bunion with crowding of the lesser toes. She was provided with a silicone toe sleeve and toe spacer to try for comfort. Follow-up with Dr. Mas if this is not adequate in providing pain relief. Next Appt Details Follow Up: prn, Reason: Progress Notes * Jeronimo ROOTMonicaOB:1945 (78 yo F)Acc No.[id number]:03/11/2024 Follow Up Patient: Dorie DAVIS Provider: Mayr Holm PA-C :1945 A ge:78 Y S ex:Female Date:03/11/2024 Address:[address] [place] [address] [place] [id number] Pcp:Ok Hollins MD Check In:01:38 PM ESTCheck O ut:10:06 AM EST Subjective: * Chief Complaints: * B /l foot pain * HPI: G eneral: Pt here with bilateral toenail complaints and right toe complaints. Right foot 2nd toe rubs on great toe causing pain. Left great toenail half of it fell off a while ago and has grown back, now distal toe is painful and somewhat red. Pt requesting nail trim today. * ROS: G eneral/Constitutional: Chills d enies. [...] M usculoskeletal: Bone/Joint Symptoms d enies. C intermediate Pain d enies.?Leg cramps d enies. N [...] fracture with routine healing Modified On:10/30/2023W/U Status:confirmed M20.11 Hallux valgus (acqui red), right foot Modified On:03/11/2024W/U Status:confirmed M20.41 Other hammer toe(s) (acquired), right foot Modified On:03/11/2024/U Status:confirmed * Medical History: * Surgical History: D &C colonoscopy * Hospitalization/Major Diagno stic Procedure: N o Hospitalization History. * Family History: N on-Contributory. * Social History: T obacco Use: T [...] N .K.D.A.no[Allergies Verified] Objective: * Vitals: W t:108lbs, Ht: 62 in, HR:74/min, RR:16/min, BMI:19.75Index, Pain scale:01-10, Oxygen sat %:98%, Ht-cm: 157.48 cm, Wt-k.99 kg. * Examination: P odiatry Examination: SKIN: L eft hallux is mildly edematous and with faint erythema. No obvious ingrown toenail. No fluctuance There is a preulcerative lesion on the second toe where it rubs against the first toe on the right.. MUSCULOSKELETAL: R ight hallux abductovalgus deformity with crowding of the lesser toesLeft toes are rectusPain with palpation of the right second toe medially. pain with palpation of the left hallux.. NEUROLOGICAL: L ight touch sensation is intact in all nerve distributions, Negative Tinel sign. VASCULAR: P alpable pedal pulses bilaterally, mild swelling of the left hallux, No calf pain on squeeze. X R bilateral foot: right bunion, no evidence of fracture in either foot. Assessment: * Assessment: 1. C ellulitis of left toe - L03.032 (Primary) 2 . H allux valgus (acquired), right foot - M20.11 3 . O ther hammer toe(s) (acquired), right foot - M20.41 4 . F oot pain, right - M79.671 5 . L eft foot pain - M79.672 Plan: * Treatment: 2. H allux valgus (acquired), right foot Notes: The patient also complains of toes 1 and 2 rubbing together painfully on the right foot. She has a bunion with crowding of the lesser toes. She was provided with a silicone toe sleeve and toe spacer to try for comfort. Follow-up with Dr. Mas if this is not adequate in providing pain relief. 3. F oot pain, right I maging: XR Foot RT (3 views) * 4. L eft foot pain I maging: XR Foot LT (3 views) * * Procedure Codes: * Follow Up: p rn * * Sign off status: Completed Visit Status: C HK (Check Out) true * Provider: Mary Holm PA-C Date: 0 03/11/2024 Generated for Serafin giraldo/Kari/Dionteitting on: 0 02/03/2025 09:38 PM EDT History and Physical Notes * HPI (History of Present Illness) Category Sub-Category Detail Notes Category Not es General Pt here with bi lateral toenail complaints and right toe complaints. Right foot 2nd toe rubs on great toe causing pain. Left great toenail half of it fell off a while ago and has grown back, now distal toe is painful and somewhat red. Pt requesting nail trim today. Examination Category Sub-Category Detail Notes Category Not es Podiatry Examination SKIN: Left hallux is mildly edemat ous and with faint erythema. No obvious ingrown toenail. No fluctuance There is a preulcerative lesion on the second toe where it rubs against the first toe on the right. XR bilateral foot: right bunion, no evidence of fracture in either foot MUSCULOSKELETAL: Right hallux abducto valgus deformity with crowding of the lesser toesLeft toes are rectusPain with palpation of the right second toe medially. pain with palpation of the left hallux. NEUROLOGICAL: Light touch sensatio n is intact in all nerve distributions, Negative Tinel sign VASCULAR: Palpable pedal pulse s bilaterally, mild swelling of the left hallux, No calf pain on squeeze
--- OUTSIDE RECORDS SUMMARY | 2024-08-10 09:05 | XMS_ITS | Continuity of Care Document ---
Author Organization [facility] Address [address] [place] [address] Phone Care Team Providers Care Retail Furniture Sales Name Role Phone Ja Cordoba MD Unavailable Unavailabl e Allergies, Adverse Reactions, Alerts Substance Reaction Status Criticality No Known Allergies Active No Inform ation Medications Medication Instructions Dosage Effective Dates (start - stop) Status Comments lisinopril 2.5 mg tablet take 1 tablet by oral route every day 2.5 MG - Active Procedures Procedure Date Fundus Photography With I And R Bilatera l OCT No Charge Uni Or Bi OFFICE/OUTPATIENT VISIT, NEW Advance Directives Directive Yes / No Effective Date File Name No Information Encounters Encounter Description Practice Location Reason(s) For Visit Diagnoses Date Provider Providers Copied on Encounter OFFICE/OUTPA TIENT VISIT, [facility] Physician [facility], [address] [place], [address], [place] tel:[phone] RVA Melanie Possible Retinal Tear (chief complaint) Posterior vitreous detachment of both eyesDry Eye Syndrome OUPseudophakiaHyperte nsion [address], [address], [place], [address], [place]. tel:[phone] Other Provider: Oliva Patrick, [address], [place], [address]. tel:[phone] erring Provider: Ja Cordoba, [address], [place], [address]. tel:[phone] Family History Family Member Type Diagnosis Age At Onset Problem No family history of Strabis mus Problem No family history of Glaucom a Problem No family history of Amblyop ia Problem No family history of Macular degeneration Problem No family history of Blindne ss Payers Payer name Insurance type Covered libertarian ID Rufus goins(zulma Croft [id number] Social History Type Description Quantity Date Captured Comments Alcohol Use Details Unknown Caffeine Use Details Unknown Tobacco Use Status Current non-smoker Smoking Status Never smoker Non-Smoking Tobacco Use Details : No Details Available : No Details Available Sex Female Vital Signs Date / Time: Height Weight BMI Pulse Rate Blood Pressure Temperature Respiratory Rate Body Surface Area Head Circumference Head Circ. Percentile Wt./Leon. Percentile BMI percentile Pulse Ox Inhaled Ox 1:25 PM 73 /min 131/66 mm[Hg] Chief Complaint And Reason For Visit From encounter dated '08/10/2024 13:05'. Possible Retinal Tear (chief complaint). Description: The 79 year old female presents for evaluation of Possible Retinal Tear in the left eye. This is a new patient presenting for evaluation of possible retinal tear of her left eye diagnosed and referred by Dr. Patrick. Patient reports she saw Dr. Patrick yesterday and was concerned about a possible retinal tear. Reports slight ocular pain. Denies current flashes of light or floaters. Vision is stable with glasses. Reason For Referral Reason For Referral No Information History Of Present Illness Encounter Date Complaint History Of Prese nt Illness Possible Retinal Tear The 79 yea r old female presents for evaluation of Possible Retinal Tear in the left eye. This is a new patient presenting for evaluation of possible retinal tear of her left eye diagnosed and referred by Dr. Patrick. Patient reports she saw Dr. Patrick yesterday and was concerned about a possible retinal tear. Reports slight ocular pain. Denies current flashes of light or floaters. Vision is stable with glasses. Functional Status Date Functional Assessmen t No Information Instructions Date Instruction Additional Infor mation Impression/Plan Related to Poste rior vitreous detachment of both eyes Impression/Plan Related to Dry E ye Syndrome OU Impression/Plan Related to Pseud ophakia Impression/Plan Related to Hyper tension Assessments Type Assessment Date assessment Posterior vitreous detachment of both eyes assessment Dry Eye Syndrome OU assessment Pseudophakia impression Posterior vitreous d etachment of both eyes: H43.813. Bilateral. 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 Bi lateral. Condition: mild impression Pseudophakia: Z96.1. Bilateral. Condition: stable assessment Hypertension impression Hypertension: I10 Patient Care Teams Name Effective Dates (start - stop) Status Members No Information
--- OUTSIDE RECORDS SUMMARY | 2025-02-03 21:38 | XMS_ITS | Encounter Summary ---
Author Organization [facility] Address [address] [place] [address] Care Team Providers Care Division Superintendent Name Role Phone Ok Hollins MD Primary Care Provider Source Comments In the event this information is protected by the Federal Confidentiality of Alcohol and Drug AbusePatient Records regulations: The Federal rules restrict any use of the information to criminally investigate or prosecute any alcohol or drug abuse patient.[facility] Encounter Details Date Type Department Care Team (Late st Contact Info) Description 04/22/2024 Patient Msg Geriatrics [address] [place] [address] Provider, Ccf Directions to Geriatric appointment Social History Tobacco Use Types Packs/Day Years Used Date Smoking Tobacco: Never Alcohol Use Standard Drinks/Week Comments Not Asked 0 (1 standard drink = 0.6 oz pur e alcohol) PHQ-2 Answer Date Recorded PHQ-2 score 1 02/10/2024 Area Deprivation Index Answer Date Be rded National Score (1-100), lower number is lower ri sk 61 03/24/2023 State Score (1-10), lower number is lower risk 4 03/24/2023 Data from: https://www.neighborhoodatlas.[facility]/. Last address used for calculation [address] 03/24/2023 Comments No Sex and Gender Information Value Date Recorded Sex Assigned at Not on file Legal Sex Female 9:15 AM EST Gender Identity Not on file Sexual Orientation Not on file documented as of this encounter Plan of Treatment Upcoming Encounters Date Type Department Care Team (Late st Contact Info) Description 02/10/2025 10:30 AM EDT Office Visit Cardiology [address] [place] [address] echo 03/18/2025 11:00 AM EDT Office Visit Neurology [address] [place] [address] [place] [address] [place] [address] Return in about 6 months (around 03/31/2025). 06/16/2025 8:45 PM EDT Office Visit Neurology [address] [place] [address] Main, Psg Neur [address] [place] [address] DENZEL (obstructive sleep apnea) 07/08/2025 10:00 AM EST Office Visit Cardiology [address] [place] [address] [place] [address] [place] [address] Return in about 6 months (around 07/07/2025). 07/18/2025 9:00 AM EST Office Visit Geriatrics [address] [place] [address] Cassius Jiménez MD [address] [facility] [address] [place] [address] 6 month in person follow up documented as of this encounter Visit Diagnoses Not on filedocumented in this encounter Care Teams Division Superintendent Relationship Specialty Start Date End Date Ok Hollins MD [address] [place] [address] PCP - General Family Medicine 03/24/23 documented as of this encounter
--- OUTSIDE RECORDS SUMMARY | 2025-02-03 21:38 | XMS_ITS | Encounter Summary ---
Author Organization [facility] Address [address] [place] [address] Care Team Providers Care Prison Keeper Name Role Phone kO Hollins MD Primary Care Provider [phone] Source Comments In the event this information is protected by the Federal Confidentiality of Alcohol and Drug AbusePatient Records regulations: The Federal rules restrict any use of the information to criminally investigate or prosecute any alcohol or drug abuse patient.[facility] Encounter Details Date Type Department Care Team (Late st Contact Info) Description 06/23/2024 Get Medical Advice Geriatrics [address] [place], [place] [phone] Cassius Jiménez MD [address] [facility] [address] [place] [address] Follow up on MRI and all tests in Geriatrics Social History Tobacco Use Types Packs/Day Years Used Date Smoking Tobacco: Never Smokeless Tobacco: Current Alcohol Use Standard Drinks/Week Comments Not Asked 0 (1 standard drink = 0.6 oz pur e alcohol) [facility] Utilities Answer Date Recorded In the past 12 months has th e electric, gas, oil, or water abeo threatened to shut off services in your home? No 06/27/2024 Social Connection and Isolat ion Panel [NHANES] Answer Date Recorded In a typical week, how many times do you talk on the phone with family, friends, or neighbors? More than three times a week 06/27/2024 How often do you get togethe r with friends or relatives? Once a week 06/27/2024 How often do you attend chur or sikhism services? More than 4 times per year 06/27/2024 Do you belong to any clubs o r organizations such as yazidi groups, unions, fraternal or athletic groups, or school groups? No 06/27/2024 How often do you attend meet ings of the clubs or organizations you belong to? Never 06/27/2024 Are you , , di vorced, , never , or living with a partner? 06/27/2024 AUDIT-C Answer Date Recorded Q1: How often do you have a drink containing alcohol? Never 06/27/2024 Q2: How many drinks containi ng alcohol do you have on a typical day when you are drinking? Patient does not drink Q3: How often do you have si x or more drinks on one occasion? Never 06/27/2024 Overall Financial Resource Strain (CARDIA) Answe r Date Recorded How hard is it for you to pa y for the very basics like food, housing, medical care, and heating? Not hard at all 06/27/2024 PHQ-2 Answer Date Recorded PHQ-2 score 2 06/13/2024 [facility] - Occupational Stress Questionnaire Answer Date Recorded Do you feel stress - tense, restless, nervous, or anxious, or unable to sleep at night because your mind is troubled all the time - these days? Only a little 06/27/2024 Exercise Vital Sign Answer Date Recorde d On average, how many days pe r week do you engage in moderate to strenuous exercise (like a brisk walk)? 2 days 06/27/2024 On average, how many minutes do you engage in exercise at this level? 10 min 06/27/2024 Hunger Vital Sign Answer Date Recorded Within the past 12 months, y ou worried that your food would run out before you got the money to buy more. Never true 06/27/20 24 Within the past 12 months, t he food you bought just didn't last and you didn't have money to get more. Never true 06/27/2024 PRAPARE - Transportation Answer Date Re corded In the past 12 months, has l ack of transportation kept you from medical appointments or from getting medications? No 06/02 In the past 12 months, has l ack of transportation kept you from meetings, work, or from getting things needed for daily living? No 06/27/2024 Housing Stability Vital Sign Answer Bhavesh e Recorded In the last 12 months, was t here a time when you were not able to pay the mortgage or rent on time? No 06/27/2024 Number of Times Moved in the Last Year Not on fi le 06/27/2024 Homeless in the Last Year Not on file 2023 Area Deprivation Index Answer Date Be rded National Score (1-100), lower number is lower ri sk 61 03/24/2023 State Score (1-10), lower number is lower risk 4 03/24/2023 Data from: https://www.neighborhoodatlas.medicine.[facility].edu/. Last address used for calculation [address] [facility] 03/24/2023 Comments No Sex and Gender Information Value Date Recorded Sex Assigned at Not on file Legal Sex Female 9:15 AM EST Gender Identity Not on file Sexual Orientation Not on file documented as of this encounter Plan of Treatment Upcoming Encounters Date Type Department Care Team (Late st Contact Info) Description 02/10/2025 10:30 AM EDT Office Visit Cardiology [address] [place] [address] echo 03/18/2025 11:00 AM EDT Office Visit Neurology [address] [place] [address] [place] [address] [place] [address] Return in about 6 months (around 03/31/2025). 06/16/2025 8:45 PM EDT Office Visit Neurology [address] [place] [address] Main, Psg Neur [address] [place] [address] DENZEL (obstructive sleep apnea) 07/08/2025 10:00 AM EST Office Visit Cardiology [address] [place] [address] [place] [address] [place] [address] Return in about 6 months (around 07/07/2025). 07/18/2025 9:00 AM EST Office Visit Geriatrics [address] [place] [address] Cassius Jiménez MD [address] [facility] [address] [place] [address] 6 month in person follow up documented as of this encounter Visit Diagnoses Not on filedocumented in this encounter Care Teams Prison Keeper Relationship Specialty Start Date End Date Ok Hollins MD [address] [place] [address] PCP - General Family Medicine 03/24/23 documented as of this encounter
--- OUTSIDE RECORDS SUMMARY | 2025-02-03 21:38 | XMS_ITS | Encounter Summary ---
Author Organization [facility] Address [address] [place] [address] Care Team Providers Care Cement Truck Loader Name Role Phone Ok Hollins MD Primary Care Provider [phone] Source Comments In the event this information is protected by the Federal Confidentiality of Alcohol and Drug AbusePatient Records regulations: The Federal rules restrict any use of the information to criminally investigate or prosecute any alcohol or drug abuse patient.[facility] Encounter Details Date Type Department Care Team (Late st Contact Info) Description 01/17/2025 Patient Msg Neurology [address] [place] [phone] Provider, Ccf SOONER SLEEP STUDY OPENING FOR 01/17 Social History Tobacco Use Types Packs/Day Years Used Date Smoking Tobacco: Never Smokeless Tobacco: Current Alcohol Use Standard Drinks/Week Comments Not Asked 0 (1 standard drink = 0.6 oz pur e alcohol) [facility] Utilities Answer Date Recorded In the past 12 months has [employer] electric, gas, oil, or water company threatened to shut off services in your [...] How often do you attend chur or church services? More than 4 times per year 06/27/2024 Do you belong to any clubs o r organizations such as taoist groups, unions, fraternal or athletic groups, or [...] 06/27/2024 PHQ-2 Answer Date Recorded PHQ-2 score 0 09/27/2024 [facility] - Occupational [...] is lower risk 4 03/24/2023 Data from: https://www.neighborhoodatlas.medicine.[facility].edu/. Last address used for calculation [address] [facility] 03/24/2023 Comments No Sex and Gender Information Value Date Recorded Sex Assigned at Not on file Legal Sex Female 9:15 AM EST Gender Identity Not on file Sexual Orientation Not on file documented as of this encounter Plan of Treatment Upcoming Encounters Date Type Department Care Team (Late st Contact Info) Description 02/10/2025 10:30 AM EDT Office Visit Cardiology [address] [place] [address] echo 03/18/2025 11:00 AM EDT Office Visit Neurology [address] [place] [address] [place] [address] [place] [address] Return in about 6 months (around 03/31/2025). 06/16/2025 8:45 PM EDT Office Visit Neurology 8[address] [place] [address] Main, Psg Neur [address] [facility] [place] [place] [address] DENZEL (obstructive sleep apnea) 07/08/2025 10:00 AM EST Office Visit Cardiology [address] [place] [address] [place] [address] [place] [address] Return in about 6 months (around 07/07/2025). 07/18/2025 9:00 AM EST Office Visit Geriatrics [address] [place] [address] Cassius Jiménez MD [address] [facility] [address] [place], [place] [phone] 6 month in person follow up documented as of this encounter Visit Diagnoses Not on filedocumented in this encounter Care Teams Cement Truck Loader Relationship Specialty Start Date End Date Ok Hollins MD [address] [place] [address] PCP - General Family Medicine 03/24/23 documented as of this encounter
--- OUTSIDE RECORDS SUMMARY | 2025-02-03 21:38 | XMS_ITS | Patient Health Record ---
Author Organization [facility] Address [address] [place] [address] Care Team Providers Care Sleep Lab Technician Name Role Phone Srinivasan Lezama MD Primary Care Provider Gerry Santos Unavailable [phone] Allergies No Known Allergies Results Component Value Reference Range Notes XR Foot LT (3 views) * Reviewed date:11/09/2024 08:39:43 AM Interpretation: Performing Lab: Notes/Report: XR Foot RT (3 views) * Reviewed date:04/06/2024 09:35:02 AM Interpretation: Performing Lab: Notes/Report: XR foot LT min 3V (Not yet r eviewed by provider) Interpretation: Performing Lab: Notes/Report: Source Facility: [place] [id number] XRay Report Signed Patient: JASIEL ROOT MR#: [id number] : 1945 Acct:[id number] Age/Sex: 78 / F ADM Date: 03/11/24 Loc: EC Attending Dr: Gerry Pratt Ordering Physician: Gerry Pratt Date of Service: 03/11/24 Procedure(s): XR foot LT min 3V Accession Number(s): [id number] cc: Gerry Pratt; SRINIVASAN LEZAMA [place] [id number] Patient Name: JASIEL ROOT MRN: [id number] date: 1945 Sex: F Assigned Patient Location: EC Current Patient Location: EC Accession/Order Number: [id number] Exam Date: 03/11/2024 14:05 Report Date: 03/11/2024 16:53 At the request of: GERRY PRATT Procedure: XR foot LT min 3V EXAMINATION: XR foot RT min 3V, XR foot LT min 3V HISTORY: RIGHT FOOT PAIN COMPARISON: 09/11/2023 FINDINGS: RIGHT FINDINGS: BONES: No acute fracture or dislocation. Moderate hallux valgus. Moderate osteoarthropathy first metatarsal-phalangeal joint SOFT TISSUES: Negative. No visible soft tissue swelling. OTHER: Negative. LEFT FINDINGS: BONES: No acute fracture or dislocation. Mild hallux valgus. Mild to moderate osteoarthropathy first metatarsal-phalangeal joint SOFT TISSUES: Negative. No visible soft tissue swelling. OTHER: Negative. 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 Signed By: 03/11/241655 DD/ 52 TD/TT: Link Trainer Operator: [place] [address] XRay Report Signed Patient: NADER ROOT MR#: [id number] : 1945 Acct:[id number] Age/Sex: 78 / F ADM Date: 03/11/24 Loc: Attending Dr: Gerry Pratt Ordering Physician: Gerry Pratt Date of Service: 03/11/24 Procedure(s): XR foot LT min 3V Accession Number(s): [id number] cc: Gerry Pratt; SRINIVASAN LEZAMA The [address] [address] Patient Name: JASIEL ROOT MRN: [id number] date: 1945 Sex: F Assigned Patient Location: Current Patient Location: Accession/Order Numb er: [id number] Exam Date: 03/11/2024 14:05 Report Date: 03/11/2024 16:53 At the request of: GERRY PRATT Procedure: XR foot LT min 3V EXAMINATION: XR foot RT min 3V, XR foot LT min 3V HISTORY: RIGHT FOOT PAIN COMPARISON: 09/11/2023 FINDINGS: RIGHT FINDINGS: BONES: No acute frac ture or dislocation. Moderate hallux valgus. Moderate osteoarthropathy fir st metatarsal-phalangeal joint SOFT TISSUES: Negati ve. No visible soft tissue swelling. OTHER: Negative. LEFT FINDINGS: BONES: No acute frac ture or dislocation. Mild hallux valgus. Mild to moderate osteoarthropathy fir st metatarsal-phalangeal joint SOFT TISSUES: Negati ve. No visible soft tissue swelling. OTHER: Negative. 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 Signed By: 03/11/241655 DD/ 52 TD/TT: Link Trainer Operator: Reason For Referral No Information Medications Medication SIG (Take, Route, Frequency, Duration) Notes Start Date End Date Status Prevalite 4 GM/DOSE MIX & DRINK 4GM IN L IQUID DAILY Oral for 30 Days Active Multivitamin Active Lisinopril-hydroCHLOROthiaz rome 10-12.5 MG Oral for 90 Days Active Linzess 72 MCG TAKE 1 CAPSULE BY MO NDH EVERY DAY Oral for 30 Days Active Klor-Con M20 20 MEQ Oral for 5 Days Active hydrOXYzine HCl 10 MG TAKE 1 TABLET BY M [facility] 4 TIMES A DAY NEEDED FOR ANXIETY Oral for 22 Days Active Co Q 10 Active Benefiber Active Albuterol Sulfate HFA 108 (90 Base) MCG/ACT INHALE 2 PUFFS BY MOUTH EVERY 4 HOURS NEEDED Inhalation for 16 Days Active Topiramate 50 MG TAKE 1 TABLET BY ALEJANDRO TH EVERYDAY AT BEDTIME Oral for 30 Days Active Cephalexin 500 MG 1 capsule Orally bid for 7 days 03/11/2024 Active Symbicort 80-4.5 MCG/ACT Inhalation for 90 Days Active Social History Tobacco Use: Social History Observation Description Date Details (start date - stop date) Never Smoker NA - NA Tobacco Use/Smoking Question Answer Notes Patient is a nonsmoker Problems Problem Type SNOMED Code ICD Code Onset Dates Problem Status W/U Status Risk Notes Problem 4425293258 Hallux valgus (acquired), right foot (M20.11) Active confirmed Problem 606571704 Other hammer toe(s) (acquired), right foot (M20.41) Active confirmed Problem 764910100 Torus fracture of lower end of right fibula, subsequent encounter for fracture with routine healing (S82.821D) Active confirmed Vital Signs Heart Rate 74 /min 03/11/2024 Respiratory Rate 16 /min 03/11/2024 Oximetry 98 % 03/11/2024 Height 62 in 03/11/2024 Weight 108 lbs 03/11/2024 BMI 19.75 kg/m2 03/11/2024 Encounters Encounter Location Date Provider Diagnosis [facility] (PODIATRY) [address] [place] [address] [place] [address] 03/11/2024 Gerry Pratt Cellulitis of left toe L03.032 ; Hallux [...] pain (ICD-10 - M79.672) Plan Of Treatment Pending Test Test Name Order Date XR foot LT min 3V 03/11/2024 XR foot RT min 3V 09/11/2023 Insurance Providers Payer Name Payer Address Payer Phone Subscriber Number Group Number Insured Name Patient Relationship to Insured Coverage Start Date Coverage End Date [employer] MEDICARE [address] SAMANTHA TATE [id number] Jasiel Root Self - patient is the insured Medical (General) History Medical History History ICD Code arteriosclerotic cardiovascular disease asthma hypokalemia 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
--- OUTSIDE RECORDS SUMMARY | 2025-02-03 21:38 | XMS_ITS | Encounter Summary ---
Author Organization [facility] Address [address] [place], [place] [id number] Care Team Providers Care Translator Interpreter Name Role Phone Ok Hollins MD Primary Care Provider [phone] Source Comments In the event this information is protected by the Federal Confidentiality of Alcohol and Drug AbusePatient Records regulations: The Federal rules restrict any use of the information to criminally investigate or prosecute any alcohol or drug abuse patient.[facility] Encounter Details Date Type Department Care Team (Late st Contact Info) Description 04/14/2024 Patient Msg Neurology [address] [place], [place] [phone] [place] [address] [place], [place] [phone] ACTION REQUIRED: Please complete your COGNITIVE ASSESSMENT Social History Tobacco Use Types Packs/Day Years [...] is lower risk 4 03/24/2023 Data from: https://www.neighborhoodatlas.medicine.[facility].edu/. Last address used for calculation [address] 03/24/2023 Comments No Sex and Gender Information Value Date Recorded Sex Assigned at Not on file Legal Sex Female 9:15 AM EST Gender Identity Not on file Sexual Orientation Not on file documented as of this encounter Plan of Treatment Upcoming Encounters Date Type Department Care Team (Late st Contact Info) Description 02/10/2025 10:30 AM EDT Office Visit Cardiology [address] [place] [address] echo 03/18/2025 11:00 AM EDT Office Visit Neurology [address] [place] [address] [place] [address] [place] [address] Return in about 6 months (around 03/31/2025). 06/16/2025 8:45 PM EDT Office Visit Neurology [address] [place] [address] Main, Psg Neur [address] [place] [address] DENZEL (obstructive sleep apnea) 07/08/2025 10:00 AM EST Office Visit Cardiology [address] [place] [address] [place] [address] [place] [address] Return in about 6 months (around 07/07/2025). 07/18/2025 9:00 AM EST Office Visit Geriatrics [address] [place] [address] Cassius Jiménez MD [address] [facility] [address] [place] [address] 6 month in person follow up documented as of this encounter Visit Diagnoses Not on filedocumented in this encounter Care Teams Translator Interpreter Relationship Specialty Start Date End Date Ok Hollins MD [address] [place] [address] PCP - General Family Medicine 03/24/23 documented as of this encounter
--- OUTSIDE RECORDS SUMMARY | 2025-02-03 21:38 | XMS_ITS | Encounter Summary ---
Author Organization [facility] Address [address] [place] [address] Care Team Providers Care Automotive Instructor Name Role Phone Ok Hollins MD Primary Care Provider [phone] Source Comments In the event this information is protected by the Federal Confidentiality of Alcohol and Drug AbusePatient Records regulations: The Federal rules restrict any use of the information to criminally investigate or prosecute any alcohol or drug abuse patient.[facility] Encounter Details Date Type Department Care Team (Late st Contact Info) Description 01/05/2025 Patient Msg Neurology [address] [place] [phone] Provider, Ccf Scheduling your sleep study Social History Tobacco Use Types Packs/Day Years Used Date Smoking Tobacco: Never Smokeless Tobacco: Current Alcohol Use Standard Drinks/Week Comments Not Asked 0 (1 standard drink = 0.6 oz pur e alcohol) [facility] Utilities Answer Date Recorded In the past 12 months has [employer] electric, gas, oil, or water company threatened [...] How often do you attend chur or rastafarian services? More than 4 times per year 06/27/2024 Do you belong to any clubs o r organizations such as restorationist groups, unions, fraternal or athletic groups, or [...] Answer Date Recorded PHQ-2 score 0 09/27/2024 [facility] - Occupational Stress Questionnaire Answer Date Recorded [...] is lower risk 4 03/24/2023 Data from: https://www.neighborhoodatlas.medicine.[facility].edu/. Last address used for calculation [address] [facility] 03/24/2023 Comments No Sex and Gender Information Value Date Recorded Sex Assigned at Not on file Legal Sex Female 9:15 AM EST Gender Identity Not on file Sexual Orientation Not on file documented as of this encounter Plan of Treatment Upcoming Encounters Date Type Department Care Team (Late st Contact Info) Description 02/10/2025 10:30 AM EDT Office Visit Cardiology [address] [place] [address] echo 03/18/2025 11:00 AM EDT Office Visit Neurology [address] [place] [address] [place] [address] [place] [address] Return in about 6 months (around 03/31/2025). 06/16/2025 8:45 PM EDT Office Visit Neurology [address] [place] [address] Main, Psg Neur [address] [place] [address] DENZEL (obstructive sleep apnea) 07/08/2025 10:00 AM EST Office Visit Cardiology [address] [place] [address] [place] [address] [place] [address] Return in about 6 months (around 07/07/2025). 07/18/2025 9:00 AM EST Office Visit Geriatrics [address] [place] [address] Cassius Jiménez MD [address] [facility] [address]10 [place], [place] [phone] 6 month in person follow up documented as of this encounter Visit Diagnoses Not on filedocumented in this encounter Care Teams Automotive Instructor Relationship Specialty Start Date End Date Ok Hollins MD [address] [place] [address] PCP - General Family Medicine 03/24/23 documented as of this encounter
--- OUTSIDE RECORDS SUMMARY | 2025-02-03 21:38 | XMS_ITS | Encounter Summary ---
Author Organization [facility] Address [address] [place] [address] Care Team Providers Care Stock Transfer Clerk Name Role Phone Ok Hollins MD Primary Care Provider [phone] Encounter Details Date Type Department Care Team (Late st Contact Info) Description 04/01/2023 Abstract [facility] [address] [facility] [address] [place] [address] Renan Gavin, DO [address] [facility] [address] [place] [address] Social History Tobacco Use Types Packs/Day Years Used Date Smoking Tobacco: Never Smokeless Tobacco: Never Alcohol Use Standard Drinks/Week Comments Not Currently 0 (1 standard drink = 0.6 oz pure alcohol) 1-2 drinks less than monthly in the past year, Caffeine intake: 2-3 cups per day coffee AUDIT-C Answer Date Recorded Q1: How often do you have a drink containing alcohol? Never 03/26/2023 Q2: How many drinks containi ng alcohol do you have on a typical day when you are drinking? Patient does not drink Q3: How often do you have si x or more drinks on one occasion? Never 03/26/2023 Comments No Sex and Gender Information Value Date Recorded Sex Assigned at Not on file Legal Sex Female 7:12 PM EDT Gender Identity Not on file Sexual Orientation Not on file documented as of this encounter Plan of Treatment Not on file documented as of this encounter Visit Diagnoses Not on filedocumented in this encounter Care Teams Stock Transfer Clerk Relationship Specialty Start Date End Date Ok Hollins MD PCP - General Family Medicine 03/26/23 documented as of this encounter
--- OUTSIDE RECORDS SUMMARY | 2025-02-03 21:38 | XMS_ITS | Clinical Summary ---
Author Organization [facility] [facility] Address [id number] [address] [place] [address] Care Team Providers Care Combination Saw Operator Name Role Phone Elyse Sharma MD Primary Care Provider [phone] Allergies No known active allergies Medications amitriptyline (ELAVIL) 10 mg tablet 10 mg nightly. 10/07/2017 Active SYMBICORT 80-4.5 mcg/actuation inhaler 2 puffs daily. 09/05/2017 Active lisinopril-hydr ochlorothiazide (PRINZIDE,ZESTO RETIC) 10-12.5 mg per tablet 10-12.5 tablets daily. 1/2 tablet daily 09/22/2017 Active polyethylene glycol (GLYCOLAX) 17 gram/dose powder 10/30/2017 Active albuterol (PROAIR HFA) 90 mcg/actuation inhaler Inhale 2 puffs every 6 (six) hours as needed for wheezing. Active aspirin 81 mg Take 81 mg by mouth daily. Active Active Problems No known active problems Family History Medical History Relation Name Comments Heart disease Mother Breast cancer Sister Relation Name Status Comments Father Mother Sister Alive Social History Tobacco Use Types Packs/Day Years Used Date Smoking Tobacco: Never Smokeless Tobacco: Never Alcohol Use Standard Drinks/Week Comments No 0 (1 standard drink = 0.6 oz pur e alcohol) Childcare Answer Date Recorded Childcare Unknown 02/08/2019 Employment Answer Date Recorded Employment Unknown 02/08/2019 Purpose - Life Answer Date Recorded Purpose and direction in life Unknown Comments Unknown Sex and Gender Information Value Date Recorded Sex Assigned at Not on file Legal Sex Female 2:40 PM EDT Gender Identity Not on file Sexual Orientation Not on file Last Filed Vital Signs Vital Sign Reading Time Taken Comments Blood Pressure 130/80 11/14/2017 9:44 AM EDT Pulse - - Temperature - - Respiratory Rate - - Oxygen Saturation - - Inhaled Oxygen Concentration - - Weight 53.1 kg (117 lb) 11/14/2017 9:44 AM EDT Height 157.5 cm (5' 2 ) 11/14/2017 9:44 AM EDT Body Mass Index 21.4 11/14/2017 9:44 AM EDT Plan of Treatment Health Maintenance Due Date Last Done Comments Depression Screening 1957 Tobacco Screening 1957 DTaP,Tdap and Td Vaccines (1 - Tdap) 1962 Zoster (Shingles) Vaccine (1 of 2) 1993 Fall Risk Screening 2008 Influenza Vaccine 05/02/2025 Medical Devices Not on file Insurance MEDICARE [facility] Care Teams Combination Saw Operator Relationship Specialty Start Date End Date Elyse Sharma MD PCP - General Family Medicine 11/05/17
--- OUTSIDE RECORDS SUMMARY | 2025-02-03 21:38 | XMS_ITS | Encounter Summary ---
Author Organization [facility] Address [address] [place] [address] Care Team Providers Care Crayon Sawyer Name Role Phone Ok Hollins MD Primary Care Provider [phone] Source Comments In the event this information is protected by the Federal Confidentiality of Alcohol and Drug AbusePatient Records regulations: The Federal rules restrict any use of the information to criminally investigate or prosecute any alcohol or drug abuse patient.[facility] Encounter Details Date Type Department Care Team (Late st Contact Info) Description 06/05/2023 Patient Msg Cardiology [address] [place] [address] Provider, [facility] upcoming nuclear stress test instructions Social History Tobacco Use Types Packs/Day Years Used Date Smoking Tobacco: Never Alcohol Use Standard Drinks/Week Comments Not Asked 0 (1 standard drink = 0.6 oz pur e alcohol) Area Deprivation Index Answer Date Be rded National Score (1-100), lower number is lower ri sk 61 03/24/2023 State Score (1-10), lower number is lower risk 4 03/24/2023 Data from: https://www.neighborhoodatlas.medicine.[facility].edu/. Last address used for calculation [address] 03/24/2023 Comments No Sex and Gender Information Value Date Recorded Sex Assigned at Not on file Legal Sex Female 9:15 AM EST Gender Identity Not on file Sexual Orientation Not on file documented as of this encounter Plan of Treatment Upcoming Encounters Date Type Department Care Team (Late st Contact Info) Description 02/10/2025 10:30 AM EDT Office Visit Cardiology [address] [place] [address] echo 03/18/2025 11:00 AM EDT Office Visit Neurology [address] [place] [address] [place] [address] [place] [address] Return in about 6 months (around 03/31/2025). 06/16/2025 8:45 PM EDT Office Visit Neurology [address] [place] [address] Main, Psg Neur [address] [place] [address] DENZEL (obstructive sleep apnea) 07/08/2025 10:00 AM EST Office Visit Cardiology [address] [place] [address] [place] [address] [place] [address] Return in about 6 months (around 07/07/2025). 07/18/2025 9:00 AM EST Office Visit Geriatrics [address] [place] [address] Cassius Jiménez MD [address] [facility] [address] [place] [address] 6 month in person follow up documented as of this encounter Visit Diagnoses Not on filedocumented in this encounter Care Teams Crayon Sawyer Relationship Specialty Start Date End Date Ok Hollins MD [address] [place] [address] PCP - General Family Medicine 03/24/23 documented as of this encounter
--- OUTSIDE RECORDS SUMMARY | 2025-02-03 21:38 | XMS_ITS | Encounter Summary ---
Author Organization [facility] Address [address] [place] [address] Care Team Providers Care Product Strategy Director Name Role Phone Ok Hollins MD Primary Care Provider [phone] Encounter Details Date Type Department Care Team (Late st Contact Info) Description 03/26/2023 Abstract [facility] [address] [facility] [address] [place] [address] Renan Gavin, DO [address] [facility] [address] [place] [address] Social History Tobacco Use Types Packs/Day Years Used Date Smoking Tobacco: Never Smokeless Tobacco: Never Tobacco Cessation:Counseling Given: Not Answered Alcohol Use Standard Drinks/Week Comments Not Currently [...] on file documented as of this encounter Functional Status * Audit-C Score Answer Date of Assessment Author 0 03/26/2023 10:23 AM EDT Raisa Bruce MA * Question Answer Date of Assessment Author Q1: How often do you have a drink containing alcohol? Never 03/26/2023 10:23 AM Emerita Dugan M A Q2: How many drinks containing alcohol do you have on a typical day when you are drinking? Patient does not drink 03/26/2023 10:23 AM Emerita Dugan MA Q3: How often do you have six or more drinks on one occasion? Never 03/26/2023 10:23 AM Emerita Dugan M A documented as of this encounter Plan of Treatment Not on file documented as of this encounter Visit Diagnoses Not on filedocumented in this encounter Care Teams Product Strategy Director Relationship Specialty Start Date End Date Ok Hollins MD PCP - General Family Medicine 03/26/23 documented as of this encounter
--- OUTSIDE RECORDS SUMMARY | 2025-02-03 21:38 | XMS_ITS | Clinical Summary ---
Author Organization [facility] Address [address] [place], [place] [id number] Care Team Providers Care Certified Maintenance Welder Name Role Phone Ok Hollins MD Primary Care Provider [phone] Allergies No known active allergies Medications ALBUTEROL 90 MCG/ACTUATION AEROSOL INHALER as needed 0 0 6 Active BENEFIBER, GUAR GUM, ORAL Take by mouth. Active Coenzyme [id number] E 100-5 mg-unit cap 2 gels Orally Active LUTEIN-ZEAXANT HIN ORAL Take by mouth. Active cyanocobalamin , vitamin B-12, (VITAMIN B-12) 5,000 mcg subl Dissolve under the tongue. Active fsh/flx/prim/c ur/bor/om3,6,9 5 (OMEGA 3-6-9 FATTY ACIDS ORAL) Take by mouth. Active Ascorbic Acid (VITAMIN C) 1,000 mg tablet Take 1,000 mg by mouth once daily. Active lisinopril-hyd roCHLOROthiazi de (ZESTORETIC) 10-12.5 mg per tablet Take 1 tablet by mouth once daily. 4 Active memantine (NAMENDA) 10 mg tabletIndicati ons:Memory impairment Take 1 tablet by mouth two times a day. 60 tablet 2 5 Active amLODIPine (NORVASC) 5 mg tablet Take 1 tablet by mouth two times a day. 180 tablet 3 5 Active escitalopram oxalate (LEXAPRO) 20 mg tablet Take 1 tablet by mouth daily at bedtime. 60 tablet 2 5 Active escitalopram oxalate (LEXAPRO) 5 mg tablet Take 1 tablet by mouth daily at bedtime. 60 tablet 2 4 025 Discontinued escitalopram oxalate (LEXAPRO) 20 mg tablet Take 1 tablet by mouth daily at bedtime. 60 tablet 2 5 025 Discontinued escitalopram oxalate (LEXAPRO) 20 mg tablet Take 1 tablet by mouth daily at bedtime. 60 tablet 2 5 025 Discontinued Encounters Date Type Department Care Team Description 01/17/2025 Patient Msg Neurology [address] [place] [address] Provider, [facility]cf SOONER SLEEP STUDY OPENING FOR 01/1701/11/2025 Orders Only Geriatrics [address] [place] [address] Cassius Jiménez MD 01/11/2025 Orders Only Geriatrics [address] [place] [address] Cassius Jiménez MD 01/11/2025 Orders Only Geriatrics [address] [place] [address] Cassius Jiménez MD 01/05/2025 Patient Msg Neurology [address] [place] [address] Provider, [facility] Scheduling your sleep study 01/04/2025 11:00 AM EDT Office Visit Cardiology [address] [place] [address] Yousif Nguyen MD Tricuspid valve insufficiency, unspecified etiology (Primary Dx); Hypertension, unspecified type; Pulmonary hypertension (HCC); Vertigo 01/03/2025 10:30 AM EDT Office Visit Geriatrics [address] [place] [address] Cassius Jiménez MD Memory impairment (Primary Dx); B12 deficiency; Seizure disorder (HCC); Dizziness; Hearing loss, unspecified hearing loss type, unspecified laterality; Anxiety; DENZEL (obstructive sleep apnea); Dysphagia, unspecified type; Orthostatic dizziness 01/03/2025 Get Medical Advice Geriatrics [address] [place] [phone] Cassius Jiménez MD Escitalopram Dosage 12/29/2024 Travel from Last 3 Months Social History Tobacco Use Types Packs/Day Years Used Date Smoking Tobacco: Never Smokeless Tobacco: Current Tobacco Cessation:Ready to Q uit: Not Asked; Counseling Given: Not Answered Alcohol Use Standard Drinks/Week Comments Not Asked 0 (1 standard drink = 0.6 oz pur e alcohol) [facility] Utilities Answer Date Recorded In the past 12 months has th e electric, gas, oil, or water company threatened [...] How often do you attend chur or temple services? More than 4 times per year 06/27/2024 Do you belong to any clubs o r organizations such as zoroastrianism groups, unions, fraternal or athletic groups, or [...] Answer Date Recorded PHQ-2 score 0 09/27/2024 [facility] [place] of Occupat ional Health - Occupational Stress [...] lower risk 4 03/24/2023 Data from: https://www.neighborhoodatlas.medicine.[facility].edu/. Last address used for calculation [address] 03/24/2023 Comments No Sex and Gender Information Value Date Recorded Sex Assigned at Not on file Legal Sex Female 9:15 AM EST Gender Identity Not on file Sexual Orientation Not on file Last Filed Vital Signs Vital Sign Reading Time Taken Comments Blood Pressure 156/66 01/04/2025 10:50 AM EDT Pulse 61 01/04/2025 10:50 AM EDT Temperature 37.3 C (99.2 F) 07/02/2006 8:00 AM EST Respiratory Rate 20 07/02/2006 8:00 AM EST Oxygen Saturation 98% 01/04/2025 10:50 AM EDT Inhaled Oxygen Concentration - - Weight 51.3 kg (113 lb 1.5 oz) 01/04/2025 10:50 AM EDT Height 157.5 cm (5' 2 ) 01/04/2025 10:50 AM EDT Body Mass Index 20.69 01/04/2025 10:50 AM EDT Plan of Treatment Upcoming Encounters Date Type Department Care Team (Late st Contact Info) Description 02/10/2025 10:30 AM EDT Office Visit Cardiology [address] [place] [address] echo 03/18/2025 11:00 AM EDT Office Visit Neurology [address] [place] [address] [place] [address] [place] [address] Return in about 6 months (around 03/31/2025). 06/16/2025 8:45 PM EDT Office Visit Neurology [address] [place] [address] Main, Psg Neur [address] [place] [address] DENZEL (obstructive sleep apnea) 07/08/2025 10:00 AM EST Office Visit Cardiology [address] [place] [address] [place] [address] [place] [address] Return in about 6 months (around 07/07/2025). 07/18/2025 9:00 AM EST Office Visit Geriatrics [address] [place] [address] Cassius Jiménez MD [address] [facility] [address] [place] [address] 6 month in person follow up Health Maintenance Due Date Last Done Comments Anxiety Screening 1961 Depression Screening 1961 Diabetes Screening 1988 Covid-19 Vaccine (4 - 2023-2 5 season) 2024 05/25/2021, 10/20/2020, 09/29/2020 Advance Directive Discussion 09/01/2024 DTaP,Tdap,Td Vaccine (2 - Tdap) 05/07/2032 Shingrix Vaccine Completed 05/14/2019, , 06/07/2015 Bone Density Screening Completed 02/06/2021, 2017 Pneumococcal Vaccine: 50+ Completed 11/20/2022, 06/2015 RSV Vaccine Completed 07/04/2023 Influenza Vaccine Completed 06/14/2024, , 06/21/2022, Additional history exists Procedures Procedure Name Priority Date/Time Associated Diagnosis Comments ECG COMPLETE Routine 01/04/2025 10:54 AM EDT Tricuspid valve insufficiency, unspecified etiology ECG COMPLETE 01/04/2025 10:54 AM EDT from Last 3 Months Results * ECG COMPLETE (01/04/2025 10:54 AM EDT) Ventricular Rate 61 BPM [facility] Atrial Rate 61 BPM [facility] P-R Interval 148 ms [facility] QRS Duration 84 ms [facility] QT Interval 402 ms [facility] QTC Calculation (Bazett) 404 ms [facility] Calculated P [place] 72 degrees [facility] Calculated R [place] 91 degrees [facility] Calculated T [place] 73 degrees [facility] 01/04/2025 10:5 4 AM EDT Impressions [facility] - 01/27/2025 8:36 AM EDT NORMAL SINUS RHYTHM RIGHT AXIS BORDERLINE ECG Confirmed by NIRMALA MONZON MD ([id number]) on 01/27/2025 8:36:31 AM Narrative [facility] - 01/27/2025 8:36 AM EDT NAME : JASIEL ROOT PID : [id number] : 1945 Gender : Female Race : ORD : [id number] Procedure Date : Jan 04 2025 10:54:39 Edit Date : Jan 27 2025 08:36:34 Diagnosis: NORMAL SINUS RHYTHM RIGHT AXIS BORDERLINE ECG Confirmed by NIRMALA MONZON MD ([id number]) on 01/27/2025 8:36:31 AM Test Reason : I07.1 Tricuspid valve insufficiency, unspecified etiology Location : 192 : AV[facility]D Overread By : NIRMALA MONZON MD Edited By : NIRMALA MONZON MD Referred By : , Acquired by : , us Yousif Nguyen MD EKG Final Result [facility] [address] [place] [address] from Last 3 Months Insurance [employer] MEDICARE Care Teams Certified Maintenance Welder Relationship Specialty Start Date End Date Ok Hollins MD [address] [place] [address] PCP - General Family Medicine 03/24/23
--- OUTSIDE RECORDS SUMMARY | 2025-02-03 21:38 | XMS_ITS | Clinical Summary ---
Author Organization [facility] Address [address] [place] [address] Care Team Providers Care Supervisor Rough End Name Role Phone Ok Hollins MD Primary Care Provider [phone] Allergies No known active allergies Medications albuterol HFA 90 mcg/act inhaler Inhale 2 puffs every 4 (four) hours if needed. Active budesonide-form oterol (Symbicort) 80-4.5 MCG/ACT inhaler Inhale 2 puffs in the morning and 2 puffs in the evening. Active cholestyramine light (Prevalite) 4 g packet Take 4 g by mouth. 11/20/2022 Active coenzyme Q-10 100 MG capsule 2 gels Orally Active hydroCHLOROthia zide (HYDRODiuril) 12.5 MG tablet 1 (one) time each day at the same time. Active Linzess 72 MCG capsule Take 72 mcg by mouth. 02/17/2023 Active lisinopril 10 MG tablet Take 10 mg by mouth in the morning. Active topiramate (Topamax) 25 MG tablet Take 25 mg by mouth at bedtime. 03/24/2023 Active Multiple Vitamin (MULTI VITAMIN DAILY PO) Refill(s) 0 01/21/2023 Active memantine (Namenda) 5 MG tablet Take 5 mg by mouth in the morning and 5 mg before bedtime. Active hydrOXYzine HCl (Atarax) 10 MG tablet See Instructions , TAKE 1 TABLET BY MOUTH 4 TIMES A DAY NEEDED FOR ANXIETY, # 90 tab(s), Refills(s) 0, Pharmacy: [facility]/pharmacy #[id number], 158, cm, 03/11/24 9:04:00 EDT, Height/Lengt h Dosing, 49.3, kg, 03/11/24 9:04:00 EDT, Weight Dosing 09/16/2023 Active escitalopram (Lexapro) 5 MG tablet Take 5 mg by mouth at bedtime Active Active Problems Problem Noted Date Diagnosed Date ASCVD (arteriosclerotic cardiovascular disease) 03/26/2023 Asthma 03/26/2023 BMI 21.0-21.9, adult 03/26/2023 Facial laceration 03/26/2023 HTN (hypertension) 03/26/2023 Irritable bowel syndrome with constipation 03/26 Non-smoker 03/26/2023 Osteoporosis 03/26/2023 Chronic vulvitis 03/25/2023 Fibrocystic breast changes 03/25/2023 Sensorineural hearing loss, bilateral 03/25/2023 Stress incontinence of urine 03/25/2023 Encounters Date Type Department Care Team Description 11/14/2024 12:20 PM EDT Office Visit [facility] [address] [place] [address] Elyse Darby, SENIOR PHARMACY TECHNICIAN Strep throat exposure (Primary Dx); Pharyngitis, unspecified etiology; Nasal congestion 11/14/2024 Travel from Last 3 Months Immunizations Immunization Administration Dates Next Due Influenza, High-dose Seasona l, Quadrivalent, Preservative Free 05/18/2021 Family History Medical History Relation Name Comments Stroke Mother Breast cancer Sister Diabetes Sister Down syndrome Sister Relation Name Status Comments Father Mother Sister Social History Tobacco Use Types Packs/Day Years [...] Sign Reading Time Taken Comments Blood Pressure 126/70 11/14/2024 12:16 PM EDT Pulse 69 11/14/2024 12:16 PM EDT Temperature 36.3 C (97.4 F) 11/14/2024 12:16 PM EDT Respiratory Rate - - Oxygen Saturation 98% 11/14/2024 12:16 PM EDT Inhaled Oxygen Concentration - - Weight 49.9 kg (110 lb) 11/14/2024 12:16 PM EDT Height 154.9 cm (5' 1 ) 03/26/2023 10:15 AM EDT Body Mass Index 20.78 03/26/2023 10:15 AM EDT Plan of Treatment Health Maintenance Due Date Last Done Comments Pneumococcal Vaccine: 65+ Years Completed , 08/10/2015 Influenza Vaccine Completed 06/14/2024, , 06/21/2022, Additional history exists Procedures Procedure Name Priority Date/Time Associated Diagnosis Comments STREP DNA PROBE Routine 11/15/2024 9:23 AM EDT Pharyngitis, unspecified etiology from Last 3 Months Results * STREP DNA PROBE (11/15/2024 9:23 AM EDT) RESULT Neg Negative Throat 11/15/2024 9:23 AM EDT Sameer Yeager DO POINT OF CARE TEST ENTER/ED IT ORDERABLES Final Result from Last 3 Months Insurance [employer] MEDICARE ADVANTAGE Care Teams Supervisor Rough End Relationship Specialty Start Date End Date Ok Hollins MD PCP - General Family Medicine 03/26/23
--- OUTSIDE RECORDS SUMMARY | 2025-02-03 21:38 | XMS_ITS | Encounter Summary ---
Author Organization [facility] Address [address] [place] [address] Care Team Providers Care Hand Inspector Name Role Phone Ok Hollins MD Primary Care Provider [phone] Source Comments In the event this information is protected by the Federal Confidentiality of Alcohol and Drug AbusePatient Records regulations: The Federal rules restrict any use of the information to criminally investigate or prosecute any alcohol or drug abuse patient.[facility] Encounter Details Date Type Department Care Team (Late st Contact Info) Description 01/03/2025 Get Medical Advice Geriatrics [address] [place], [place] [id number] Cassius Jiménez MD [address] [facility] [address] [place] [address] Escitalopram Dosage Social History Tobacco Use Types Packs/Day Years Used Date Smoking Tobacco: Never Smokeless Tobacco: Current Alcohol Use Standard Drinks/Week Comments Not Asked 0 (1 standard drink = 0.6 oz pur e alcohol) [facility] Utilities Answer Date Recorded In the past [...] How often do you attend chur or restorationist services? More than 4 times per year 06/27/2024 Do you belong to any clubs o r organizations such as jehovah's witness groups, unions, fraternal or athletic groups, or [...] Answer Date Recorded PHQ-2 score 0 09/27/2024 [facility] - Occupational Stress Questionnaire Answer [...] is lower risk 4 03/24/2023 Data from: https://www.neighborhoodatlas.medicine.[facility].edu/. Last address used for calculation [address] [facility] 03/24/2023 Comments No Sex and Gender Information Value Date Recorded Sex Assigned at Not on file Legal Sex Female 9:15 AM EST Gender Identity Not on file Sexual Orientation Not on file documented as of this encounter Plan of Treatment Upcoming Encounters Date Type Department Care Team (Late st Contact Info) Description 02/10/2025 10:30 AM EDT Office Visit Cardiology [address] [place] [address] echo 03/18/2025 11:00 AM EDT Office Visit Neurology [address] [place], [place] [phone] [place] [address] [place] [address] Return in about 6 months (around 03/31/2025). 06/16/2025 8:45 PM EDT Office Visit Neurology [address] [place] [address] Main, Psg Neur [address] [place] [address] DENZEL (obstructive sleep apnea) 07/08/2025 10:00 AM EST Office Visit Cardiology [address] [place] [address] [place] [address] [place] [address] Return in about 6 months (around 07/07/2025). 07/18/2025 9:00 AM EST Office Visit Geriatrics [address] [place] [address] Cassius Jiménez MD [address] [facility] [address] [place], [place] [phone] 6 month in person follow up documented as of this encounter Visit Diagnoses Not on filedocumented in this encounter Care Teams Hand Inspector Relationship Specialty Start Date End Date Ok Hollins MD [address] [place] [address] PCP - General Family Medicine 03/24/23 documented as of this encounter
--- OUTSIDE RECORDS SUMMARY | 2025-02-03 21:38 | XMS_ITS | Encounter Summary ---
Author Organization [facility] Address [address] [place] [address] Care Team Providers Care Sampling Expert Name Role Phone Ok Hollins MD Primary Care Provider [phone] Encounter Details Date Type Department Care Team (Late st Contact Info) Description 03/27/2023 Abstract [facility] [address] [facility] [address] [place] [address] Reann Gavin, DO [address] [facility] [address] [place] [address] Social History Tobacco Use Types Packs/Day Years [...] on filedocumented in this encounter Care Teams Sampling Expert Relationship Specialty Start Date End Date Ok Hollins MD PCP - General Family Medicine 03/26/23 documented as of this encounter
[2025-02-03 21:39] VITALS: BP 169/92; PULSE 82; TEMP 36.8; O2SAT 99; BMI 21.2
--- OUTSIDE RECORDS SUMMARY | 2025-02-03 21:39 | XMS_ITS | CCD ---
Author Organization [facility] Care Team Providers Care Cotton Bag Sewer Name Role Phone Juliano Sharma MD Primary Care Provider SWATHI ., DR JULIANO Youngblood Primary Care Unavailable [...] Attending Unavailable MISC, DR SOLER Admitting Unavailable FLUSHING, DR AN [employer] Unavailable SHARMA ., [...] Unavailable Srinivasan Lezama MD Primary Care Provider Juliano Sharma MD Primary Care Provider [phone] Srinivasan Lezama. Primary Care Physician Dung Matthews Attending Unavailable Mouchli, Mohamad A. Admitting Unavailable Mouchli, Mohamad A. Attending Unavailable Mouchli, Mohamad A. Admitting Unavailable Srinivasan Lezama MD Primary Care Provider [phone] LISE SRINIVASAN E Primary Care Unavailable CARLYLE, ARDESHIR Referring Unavailable WATYAIR CLAUDIO R Referring Unavailable ROSS, SRINIVASAN E Primary Care Unavailable ROSS, SRINIVASAN E Primary Care Unavailable ISAAC MATSON T Referring Unavailable ROSS, SRINIVASAN E Primary Care Unavailable CARLYLE, ARDESHIR Referring Unavailable Ross, Srinivasan E. Referring Unavailable Ross, Srinivasan E. Admitting Unavailable Ross, Srinivasan E. Attending Unavailable Yair, Marry A Admitting Unavailable Yair, Marry A Attending Unavailable Mouchli, Mohamad A. Admitting Unavailable Mouchli, Mohamad A. Attending Unavailable Ross, Srinivasan E. Admitting Unavailable Ross, Srinivasan E. Attending Unavailable Arron, Roxane L Admitting Unavailable Arron, Roxane L Attending Unavailable Mouchli, Mohamad A. Attending Unavailable Ross, Srinivasan E. Referring Unavailable Yair, Marry A Attending Unavailable Yair, Marry A Attending Unavailable Yair, Marry A Attending Unavailable Mouchli, Mohamad A. Attending Unavailable Ross, Srinivasan E. Attending Unavailable Ross, Srinivasan E. Attending Unavailable Ross, Srinivasan E. Attending Unavailable Ross, Srinivasan E. Attending Unavailable Ross, Srinivasan E. Attending Unavailable Ross, Srinivasan E. Attending Unavailable Arron, Roxane L Attending Unavailable Ross, Srinivasan E. Attending Unavailable Ja Cordoba Attending Unavailable Ja Cordoba Referring Unavailable JULIANO CHASE Attending Unavailable CHELY SEBASTIAN Attending Unavailable Srinivasan Lezama MD Primary Care Provider Lise Srinivasan E. Attending Unavailable Arron, [employer] Roxnae L Attending Unavailable Ross, Srinivasan E. Attending Unavailable Ross, Srinivasan E. Attending Unavailable Ross, Srinivasan E. Attending Unavailable Ross, Srinivasan E. Attending Unavailable Ross, Srinivasan E. Admitting Unavailable Mouchli, Mohamad A. Attending Unavailable Mouchli, Mohamad A. Attending Unavailable ROSS, SRINIVASAN E Primary Care Unavailable WATYAIR CLAUDIO R Attending Unavailable TAQUERIAECARMELLAAN T Attending Unavailable ROSS, SRINIVASAN E Primary Care Unavailable JOSE MARTIN MORRIS Referring Unavailab le ROSS, SRINIVASAN E Primary Care Unavailable DARRELL GALLO Attending Unavailabl e ROSS, SRINIVASAN E Primary Care Unavailable CASSIUS JIMÉNEZ Attending Unavailable ISAAC MATSON Attending Unavailable ROSS, SRINIVASAN E Primary Care Unavailable ROSS, SRINIVASAN E Primary Care Unavailable WATYAIR CLAUDIO R Attending Unavailable SELF Referring Unavailable ROSS, SRINIVASAN E Primary Care Unavailable CASSIUS JIMÉNEZ Attending Unavailable ISAAC MATSON Attending Unavailable ROSS, SRINIVASAN E Primary Care Unavailable ROSS, SRINIVASAN E Primary Care Unavailable WATTARYAIR R Attending Unavailable ROSS, SRINIVASAN E Primary Care Unavailable CARLYLE, SOYR Attending Unavailable Ross, Srinivasan E. Admitting Unavailable Ross, Srinivasan E. Attending Unavailable Ross, Srinivasan E. Admitting Unavailable Ross, Srinivasan E. Attending Unavailable Ross, Srinivasan E. Attending Unavailable Ross, Srinivasan E. Attending Unavailable Rooney, Basem G. Attending Unavailable Ross, Srinivasan E. Referring Unavailable Rooney, Basem G. Admitting Unavailable Rooney, Basem G. Attending Unavailable Rooney, Basem G. Referring Unavailable Rooney, Basem G. Admitting Unavailable Rooney, Basem G. Attending Unavailable Rooney, Basem G. Referring Unavailable Allergies Allergy Classification Reported Allergen(s) Allergy Type Date of Onset Reaction(s) Facility (4 sources) No Known Medication Allergies; 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: [No Known Medication Allergies] Propensity to adverse reactions (disorder) [facility] Repository Medications Current Medications Medication Drug Class(es) Dates Sig (Normalized) Sig (Original) 200 actuat albuterol 0.09 mg/actuat metered dose inhaler (20 sources) beta2-Adrenergic Agonist Start: 07-02-2006 ALBUTEROL 90 MCG/ACTUATION AEROSOL INHALER as needed 0 0 07/02/2006 Active take 2 puff(s) by in halation every four hours albuterol HFA 90 mcg/act inhaler Inhale 2 puffs every 4 (four) hours if needed. Active Comment on above: as needed amLODIPine 5 mg oral tablet (14 sources) Dihydropyridine Calcium Channel Ynes Start: take 1 tablet by mouth twice daily amLODIPine (NORVASC) 5 mg tablet Take 1 tablet by mouth two times a day. 180 tablet 3 01/04/2025 Active Start: 11-16-2024 take 2 tablets by mo [facility] once daily amLODIPine 5 mg Tab 5 mg = 1 tab(s), BID, TAKE 2 TABLET BY MOUTH EVERY DAY Start Date: 11/16/24 Status: Ordered Repeat number: 1 Start: 06-21-2024 End: 01-04-2025 take 1 tablet by mouth once daily amLODIPine (NORVASC) 5 mg tablet Take 1 tablet by mouth once daily. 90 tablet 3 07/05/2024 01/04/2025 Discontinued amoxicillin 500 mg oral capsule (16 sources) Penicillin-class Antibacterial Start: 11-14-2024 End: 11-24-2024 take 1 capsule by mouth in the morning amoxicillin (Amoxil) 500 MG capsule Indications: Strep throat exposure Take 1 capsule (500 mg) by mouth in the morning and 1 capsule (500 mg) before bedtime. Do all this for 10 days. 20 capsule 11/14/2024 11/24/2024 Active Start: 07-23-2023 amoxicillin 2, 000 mg, Oral, Once, PRN Other (see comment), 30 to 60 minutes prior to dental procedure, Refills(s) 0 Start Date: 07/23/23 Status: Ordered Repeat number: 1 Start: 07-23-2023 amoxicillin 2, 000 mg, Oral, Once, PRN Other (see comment), 30 to 60 minutes prior to dental procedure, Refills(s) 0 Start Date: 07/23/23 Status: Ordered ascorbic acid 1000 mg oral tablet (20 sources) Vitamin C take 1 tablet by mouth once daily Ascorbic Acid (VITAMIN C) 1,000 mg tablet Take 1,000 mg by mouth once daily. Active Comment on above: Take 1,000 mg by jeramy once daily. BENEFIBER, GUAR GUM, ORAL (20 sources) BENEFIBER, GUAR GUM, ORAL Take by mouth. Active BENEFIBER, GUAR GUM, ORAL Take by mouth. 0 Active Comment on above: Take by mouth. Breo Ellipta 200 mcg-25 mcg/inh inhalation powder (13 sources) Start: 07-19-2024 Breo Ellipta 200 mcg-25 mcg/inh inhalation powder See Instructions, 180 EA, Refill(s) 2, INHALE 1 PUFF BY MOUTH DAILY, [id number], 158, cm, 05/19/24 12:29:00 EDT, Height/Length Dosing, 50.7, kg, 05/19/24 12:29:00 EDT, Weight Dosing Start Date: 07/19/24 Status: Ordered Quantity: 180.0 Unit: EA Repeat number: 1 Start: 07-19-2024 Breo Ellipta 2 00 mcg-25 mcg/inh inhalation powder See Instructions, 180 EA, Refill(s) 2, INHALE 1 PUFF BY MOUTH DAILY, [id number], 158, cm, 05/19/24 12:29:00 EDT, Height/Length Dosing, 50.7, kg, 05/19/24 12:29:00 EDT, Weight Dosing Start Date: 07/19/24 Status: Ordered Start: 03-11-2024 take 1 puff(s) by mo [facility] once daily Breo Ellipta 200 mcg-25 mcg/inh inhalation powder INHALE 1 PUFF BY MOUTH DAILY Start Date: 03/11/24 Status: Ordered Start: 12-15-2023 take 1 puff(s) by in halation once daily Breo Ellipta 200 mcg-25 mcg/inh inhalation powder 1 puff(s), Inhalation, Daily, 60 blister(s), Refill(s) 6, [facility]/pharmacy #[id number], 158, cm, 10/21/23 10:46:00 EST, Height/Length Dosing, 51.3, kg, 10/21/23 10:46:00 EST, Weight Dosing Start Date: 12/15/23 Status: Ordered 60 actuat budesonide 0.08 mg/actuat / formoterol fumarate 0.0045 mg/actuat metered dose inhaler (12 sources) Corticosteroid, beta2-Adrenergic Agonist take 2 puff(s) by inhalation in the morning budesonide-formoterol (Symbicort) 80-4.5 MCG/ACT inhaler Inhale 2 puffs in the morning and 2 puffs in the evening. Active End: 04-22-2024 take 2 puff(s) by inhalation twice daily budesonide-formoterol (SYMBICORT) 80-4.5 mcg/actuation inhaler Inhale 2 Puffs as instructed twice daily. 04/22/2024 Discontinued take 2 puff(s) by in halation twice daily budesonide-formoterol (SYMBICORT) 80-4.5 mcg/actuation inhaler Inhale 2 Puffs as instructed twice daily. 0 Active Comment on above: Inhale 2 Puffs as in structed twice daily. Caltrate (14 sources) Start: 10-08-2023 take 1 mg by mouth once daily Caltrate mg, Oral, Daily, Refills(s) 0 Start Date: 10/08/23 Status: Ordered Repeat number: 1 Start: 10-08-2023 take 1 mg by mouth once daily Caltrate mg, Oral, Daily, Refills(s) 0 Start Date: 10/08/23 Status: Ordered sugar-free cholestyramine resin 4000 mg powder for oral suspension (7 sources) Bile Acid Sequestrant Start: 11-20-2022 take 4 g by mouth once daily, then take 2 g by mouth once daily Prevalite 4 g/5.5 g oral powder for reconstitution 4 gm, Oral, Daily, take 2gm daily until instructed otherwise, Refills(s) 0 Start Date: 11/20/22 Status: Ordered Start: 11-20-2022 take 4 g by mouth on ce daily, then take 2 g by mouth once daily Prevalite 4 g/5.5 g oral powder for reconstitution 4 gm, Oral, Daily, take 2gm daily until instructed otherwise, Refills(s) 0 Start Date: 11/20/22 Status: Ordered Start: 11-20-2022 cholestyramine light (Prevalite) 4 g packet Take 4 g by mouth. 11/20/2022 Active CoQ10 100 mg oral capsule (16 sources) Start: 01-21-2023 CoQ10 100 mg o ral capsule Refills(s) 0 Start Date: 01/21/23 Status: Ordered Repeat number: 1 Start: 01-21-2023 CoQ10 100 mg o ral capsule Refills(s) 0 Start Date: 01/21/23 Status: Ordered dextromethorphan hydrobromide 15 mg / guaiFENesin 400 mg / pseudoephedrine hydrochloride 60 mg oral tablet (1 source) alpha-Adrenergic Agonist, Uncompetitive Y-zlyutv-A-aspartate Receptor Antagonist, Sigma-1 Agonist Start: 11-14-2024 End: 11-24-2024 fphrrsbvlhsxkpz-TJ-NV 60-15-400 MG tablet Indications: Nasal congestion Take 1 tablet by mouth in the morning and 1 tablet at noon and 1 tablet in the evening and 1 tablet before bedtime. Do all this for 10 days. 40 tablet 11/14/2024 11/24/2024 Active eluxadoline 75 mg oral tablet (1 source) mu-Opioid Receptor Agonist Start: 02-18-2024 take 1 tablet by mouth twice daily Viberzi 75 mg oral tablet 75 mg = 1 tab(s), Oral, BID, # 60 tab(s), Refills(s) 6, Pharmacy: [facility]/pharmacy #[id number], 158, cm, 02/18/24 14:13:00 EDT, Height/Length Dosing, 49, kg, 02/18/24 14:13:00 EDT, Weight Dosing Start Date: 02/18/24 Status: Ordered escitalopram 10 mg oral tablet (20 sources) Serotonin Reuptake Inhibitor Start: 01-27-2025 take 1 tablet by mouth once daily escitalopram 10 mg Tab 10 mg = 1 tab(s), Oral, Daily, # 90 tab(s), Refills(s) 1, Pharmacy: [facility]/pharmacy #[id number], 158, cm, 01/27/25 15:52:00 EDT, Height/Length Dosing, 50.8, kg, 01/27/25 15:52:00 EDT, Weight Dosing Start Date: 01/27/25 Status: Ordered Quantity: 90.0 Unit: tab(s) Repeat number: 2 Start: 01-11-2025 End: 01-11-2025 take 1 tablet by mouth once daily at bedtime escitalopram oxalate (LEXAPRO) 20 mg tablet Take 1 tablet by mouth daily at bedtime. 60 tablet 2 01/11/2025 Active Start: 07-22-2024 take 1 tablet by jeramy th once daily escitalopram 10 mg Tab 10 mg = 1 tab(s), Oral, Daily, # 90 tab(s), Refills(s) 1, Pharmacy: [facility]/pharmacy #[id number], 158, cm, 07/22/24 14:27:00 EST, Height/Length Dosing, 48.6, kg, 07/22/24 14:27:00 EST, Weight Dosing Start Date: 07/22/24 Status: Ordered Quantity: 90.0 Unit: tab(s) Repeat number: 2 Start: 05-24-2024 End: 01-11-2025 take 1 tablet by mouth once daily at bedtime escitalopram oxalate (LEXAPRO) 5 mg tablet Take 1 tablet by mouth daily at bedtime. 60 tablet 2 05/24/2024 01/11/2025 Discontinued Lina-C (14 sources) Start: 10-08-2023 Lina-C Oral, Daily, Refills(s) 0 Start Date: 10/08/23 Status: Ordered Repeat number: 1 Start: 10-08-2023 Lina-C Oral, Daily, Refills(s) 0 Start Date: 10/08/23 Status: Ordered Fish Oils (14 sources) Start: 10-08-2023 Rutledge-3 Fish O il Oral, TID, Refills(s) 0 Start Date: 10/08/23 Status: Ordered Repeat number: 1 Start: 10-08-2023 Rutledge-3 Fish O il Oral, TID, Refills(s) 0 Start Date: 10/08/23 Status: Ordered fsh/flx/prim/cur/bor/om3,6,9 5 (OMEGA 3-6-9 FATTY ACIDS ORAL) (20 sources) fsh/flx/prim/cur /bor/om3,6,9 5 (OMEGA 3-6-9 FATTY ACIDS ORAL) Take by mouth. Active fsh/flx/prim/cur /bor/om3,6,9 5 (OMEGA 3-6-9 FATTY ACIDS ORAL) Take by mouth. 0 Active Comment on above: Take by mouth. hydroCHLOROthiazide 12.5 mg oral tablet (1 source) Thiazide Diuretic hydroCHLOROthi azide (HYDRODiuril) 12.5 MG tablet 1 (one) time each day at the same time. Active hydroCHLOROthiazide 12.5 mg / lisinopril 10 mg oral tablet (20 sources) Thiazide Diuretic, Angiotensin Converting Enzyme Inhibitor Start: 10-25-19 25 hydrochlorothiazide-lisinop ril 12.5 mg-10 mg Tab See Instructions, 90 tab(s), Refill(s) 0, TAKE 1 TABLET BY MOUTH DAILY, [id number], 158, cm, 08/31/24 8:34:00 EST, Height/Length Dosing, 50.1, kg, 08/31/24 8:34:00 EST, Weight Dosing Start Date: 10/25/24 Status: Ordered Quantity: 90.0 Unit: tab(s) Repeat number: 1 Start: 08-19-2024 hydrochlorothi azide-lisinopril 12.5 mg-10 mg Tab See Instructions, 90 tab(s), Refill(s) 0, TAKE 1 TABLET BY MOUTH DAILY, [id number], 158, cm, 08/11/24 14:18:00 EST, Height/Length Dosing, 50.1, kg, 08/11/24 14:18:00 EST, Weight Dosing Start Date: 08/19/24 Status: Ordered Start: 07-19-2024 hydrochlorothi azide-lisinopril 12.5 mg-10 mg Tab See Instructions, 90 tab(s), Refill(s) 0, TAKE 1 TABLET BY MOUTH DAILY, [id number], 158, cm, 05/19/24 12:29:00 EDT, Height/Length Dosing, 50.7, kg, 05/19/24 12:29:00 EDT, Weight Dosing Start Date: 07/19/24 Status: Ordered Start: 06-21-2024 take 10-12.5 mg by mouth once lisinopril-hydroCHLOROthiazide (ZESTORET IC) 10-12.5 mg per tablet Take 1 tablet by mouth once daily. 06/21/2024 Active Start: 02-22-2024 hydrochlorothi azide-lisinopril 12.5 mg-10 mg Tab See Instructions, 90 tab(s), Refill(s) 0, TAKE 1 TABLET BY MOUTH DAILY, [id number], 158, cm, 02/18/24 14:13:00 EDT, Height/Length Dosing, 49, kg, 02/18/24 14:13:00 EDT, Weight Dosing Start Date: 02/22/24 Status: Ordered Start: 01-20-2024 hydrochlorothi azide-lisinopril 12.5 mg-10 mg Tab 12.5-10 mg, Oral, Daily, 90 EA, Refill(s) 0, [facility]/pharmacy #[id number], 158, cm, 01/20/24 13:04:00 EDT, Height/Length Dosing, 50.8, kg, 01/20/24 13:04:00 EDT, Weight Dosing Start Date: 01/20/24 Status: Ordered Start: 07-23-2023 hydrochlorothi azide-lisinopril 12.5-10 mg, Oral, Daily, Refill(s) 0 Start Date: 07/23/23 Status: Ordered hydrOXYzine hydrochloride 10 mg oral tablet (15 sources) Antihistamine Start: 09-16-2023 take 1 tablet by mouth four times daily as needed for anxiety hydrOXYzine hydrochloride 10 mg Tab See Instructions, TAKE 1 TABLET BY MOUTH 4 TIMES A DAY NEEDED FOR ANXIETY, # 90 tab(s), Refills(s) 0, Pharmacy: [facility]/pharmacy #[id number], 158, cm, 03/11/24 9:04:00 EDT, Height/Length Dosing, 49.3, kg, 03/11/24 9:04:00 EDT, Weight Dosing Start Date: 04/05/24 Status: Ordered Quantity: 90.0 Unit: tab(s) Repeat number: 1 linaclotide 0.072 mg oral capsule (4 sources) Guanylate Cyclase-C Agonist Start: 03-25-2023 take 1 capsule by mouth once daily Linzess 72 mcg oral capsule 72 mcg = 1 cap(s), Oral, Daily, # 90 cap(s), Refills(s) 1, Pharmacy: [facility]/pharmacy #[id number], 155, cm, 03/25/23 8:03:00 EDT, Height/Length Dosing, 50.1, kg, 03/25/23 8:03:00 EDT, Weight Dosing Start Date: 03/25/23 Status: Ordered Start: 02-17-2023 Linzess 72 MCG capsule Take 72 mcg by mouth. 02/17/2023 Active lisinopril 10 mg oral tablet (19 sources) Angiotensin Converting Enzyme Inhibitor Start: 04-30-2023 End: 06-21-2024 take 1 tablet by mouth once daily Prinivil 10 mg oral tablet 10 mg = 1 tab(s), Oral, Daily, Refills(s) 0 Start Date: 04/30/23 Status: Ordered Comment on above: Take 10 mg by mouth once daily. Lutein (14 sources) Start: 10-08-2023 Lutein Oral, Daily, Refill(s) 0 Start Date: 10/08/23 Status: Ordered Repeat number: 1 Start: 10-08-2023 Lutein Oral, D aily, Refill(s) 0 Start Date: 10/08/23 Status: Ordered Lutein / zeaxanthin (20 sources) LUTEIN-ZEAXANTHI N ORAL Take by mouth. Active LUTEIN-ZEAXANTHI N ORAL Take by mouth. 0 Active Comment on above: Take by mouth. memantine hydrochloride 10 mg oral tablet (14 sources) D-vjcrvq-S-aspartat e Receptor Antagonist Start: take 1 tablet by mouth twice daily memantine (NAMENDA) 10 mg tablet Indications: Memory impairment Take 1 tablet by mouth two times a day. 60 tablet 2 01/03/2025 Active Start: 06-28-2024 End: 01-03-2025 take 1 tablet by mouth twice daily memantine 5 mg Tab TAKE 1 TABLET BY MOUTH TWICE A DAY Start Date: 11/16/24 Status: Ordered Repeat number: 1 Multi Vitamin+ (2 sources) Start: 01-21-2023 Multi Vitamin+ Refill(s) 0 Start Date: 01/21/23 Status: Ordered Multiple Vitamin (MULTI VITAMIN DAILY PO) (1 source) Start: 01-21-2023 Multiple Vitamin (MULTI VITAMIN DAILY PO) Refill(s) 0 01/21/2023 Active Multiple Vitamins with Zinc oral capsule (6 sources) Start: 01-21-2023 Multiple Vitamins with Zinc oral capsule 1 cap(s), Oral, Daily, 60 cap(s), Refill(s) 0 Start Date: 01/21/23 Status: Ordered nortriptyline 10 mg oral capsule (1 source) Tricyclic Antidepressant Start: 12-23-2022 End: 03-23-2023 take 1 capsule by mouth once daily at bedtime nortriptyline (PAMELOR) 10 mg capsule Take 1 capsule by mouth daily at bedtime. 30 capsule 2 12/23/2022 03/23/2023 Active Comment on above: Take 1 capsule by [facility] daily at bedtime. perflutren lipid microspheres 1.3 mL in NaCl (PF) 0.9% 10 mL injection (DEFINITY) (16 sources) Start: 04-28-2023 End: 07-27-2024 perflutren lipid microspheres 1.3 mL in NaCl (PF) 0.9% 10 mL injection (DEFINITY) Miralax (4 sources) Osmotic Laxative Start: 10-08-2023 take 1 g by mouth once daily MiraLax gm, Oral, Daily, Refill(s) 0 Start Date: 10/08/23 Status: Ordered rifAXIMin 550 mg oral tablet (3 sources) Rifamycin Antibacterial Start: 02-04-2024 End: 02-18-2024 take 1 tablet by mouth three times daily Xifaxan 550 mg oral tablet 550 mg = 1 tab(s), Oral, TID, X 14 day(s), # 42 tab(s), Refills(s) 0, Pharmacy: [facility], 158, cm, 02/04/24 13:05:00 EDT, Height/Length Dosing, 50.5, kg, 02/04/24 13:05:00 EDT, Weight Dosing Start Date: 02/04/24 Stop Date: 02/18/24 Status: Ordered 125 ml sodium chloride 9 mg/ml prefilled syringe (16 sources) Start: 04-28-2023 End: 07-27-2024 sodium chloride 0.9 % (flush) 10 mL (BD POSIFLUSH) Symbicort 80/4.5 inhalation aerosol with adapter (4 sources) Start: 10-21-2023 take 2 puff(s) by inhalation twice daily Symbicort 80/4.5 inhalation aerosol with adapter 2 puff(s), Inhalation, BID, Refill(s) 0 Start Date: 10/21/23 Status: Ordered Start: 04-07-2023 Symbicort 80/4 .5 inhalation aerosol with adapter See Instructions, 30.6 EA, Refill(s) 3, INHALE 2 PUFFS BY MOUTH TWICE DAILY, [id number], 155, cm, 04/02/23 9:19:00 EDT, Height/Length Dosing, 71.7, kg, 04/02/23 9:19:00 EDT, Weight Dosing Start Date: 04/07/23 Status: Ordered ubidecarenone 100 mg / vitam in e 5 unt oral capsule (20 sources) Coenzyme Q10-Vit duran E 100-5 mg-unit cap 2 gels Orally Active coenzyme Q-10 10 0 MG capsule 2 gels Orally Active Comment on above: 2 gels Orally vitamin b12 5 mg sublingual tablet (20 sources) Vitamin B12 cyanocobalamin, vitamin B-12, (VITAMIN B-12) 5,000 mcg subl Dissolve under the tongue. Active Comment on above: Dissolve under the t ongue. Vitamin B12 Methylcobalamin 5000 mcg sublingual tablet (10 sources) Start: 11-21-19 take 1 tablet under the tongue once daily Vitamin B12 Methylcobalamin 5000 mcg sublingual tablet 5,000 mcg = 1 tab(s), SubLingual, Daily, Refills(s) 0 Start Date: 11/20/22 Status: Ordered Benefiber (16 sources) Start: 04-30-20 Benefiber See Instructions, Refill(s) 0, uses guar gum orally by mouth Start Date: 04/30/23 Status: Ordered Repeat number: 1 Start: 04-30-2023 Benefiber See Instructions, Refill(s) 0, uses guar gum orally by mouth Start Date: 04/30/23 Status: Ordered Completed/Discontinued Medications Medication Drug Class(es) Dates Sig (Normalized) Sig (Original) Albuterol (Eqv-ProAir HFA) 90 mcg/inh inhalation aerosol (16 sources) Start: 10-21-2023 take 8.5 g by inhalation every six hours Albuterol (Eqv-ProAir HFA) 90 mcg/inh inhalation aerosol 180 mcg, 2 puff(s), Inhalation, q6hr, 8.5 gm, Refill(s) 0, [id number], 158, cm, 10/21/23 10:46:00 EST, Height/Length Dosing, 51.3, kg, 10/21/23 10:46:00 EST, Weight Dosing Start Date: 10/21/23 Status: Ordered Quantity: 8.5 Unit: g Repeat number: 1 Start: 10-21-2023 take 8.5 g by inhala tion every six hours Albuterol (Eqv-ProAir HFA) 90 mcg/inh inhalation aerosol 180 mcg, 2 puff(s), Inhalation, q6hr, 8.5 gm, Refill(s) 0, [id number], 158, cm, 10/21/23 10:46:00 EST, Height/Length Dosing, 51.3, kg, 10/21/23 10:46:00 EST, Weight Dosing Start Date: 10/21/23 Status: Ordered Start: 11-20-2022 take 2 puff(s) by in halation every six hours Albuterol (Eqv-ProAir HFA) 90 mcg/inh inhalation aerosol 2 puff(s), Inhalation, q6hr, Refill(s) 0 Start Date: 11/20/22 Status: Ordered alendronic acid 70 mg oral tablet (13 sources) Bisphosphonate Start: 07-02-2006 End: 04-22-2024 FOSAMAX 70 MG TAB weekly 0 0 07/02/2006 04/22/2024 Discontinued Comment on above: weekly Calcium Carbonate / vitamin D3 (9 sources) End: 04-22-2024 calcium carbonate/vitamin D3 (CALTRATE-600 PLUS VITAMIN D3 ORAL) Take by mouth. 04/22/2024 Discontinued calcium carbonat e/vitamin D3 (CALTRATE-600 PLUS VITAMIN D3 ORAL) Take by mouth. 0 Active Comment on above: Take by mouth. estradiol 1 mg oral tablet (4 sources) Estrogen Start: 07-02-2006 End: 04-28-2023 ESTRACE 1 MG TAB weekly 0 0 07/02/2006 04/28/2023 Discontinued (Discontinued by Patient) Comment on above: weekly fluPHENAZine hydrochloride 1 mg oral tablet (1 source) Phenothiazine Start: 06-11-2022 End: 11-14-2024 take 0.5 tablet by mouth once daily at bedtime fluPHENAZine (Prolixin) 1 MG tablet TAKE 1/2 TABLET BY MOUTH EVERYDAY AT BEDTIME 06/11/2022 11/14/2024 Discontinued (Therapy completed) potassium chloride 10 meq extended release oral tablet (1 source) End: 11-14-2024 potassium chloride CR (Klor-Con) 10 MEQ ER tablet every 12 (twelve) hours. 11/14/2024 Discontinued (Therapy completed) topiramate 25 mg oral tablet (20 sources) Start: 06-12-2023 End: 06-14-2024 take 1 tablet by mouth once daily at bedtime topiramate (TOPAMAX) 50 mg tablet Take 1 tablet by mouth daily at bedtime. 30 tablet 2 06/12/2023 06/14/2024 Discontinued Start: 03-25-2023 take 2 capsules by m outh at bedtime topiramate 25 mg Tab 50 mg = 2 cap(s), Oral, Bedtime, Refills(s) 0 Start Date: 03/25/23 Status: Ordered Start: 03-25-2023 take 2 capsules by m outh at bedtime topiramate 25 mg Tab 50 mg = 2 cap(s), Oral, Bedtime, Refills(s) 0 Start Date: 03/25/23 Status: Ordered Start: 03-25-2023 take 1 capsule by mo uth at bedtime topiramate 25 mg Tab 25 mg = 1 cap(s), Oral, Bedtime, Refills(s) 0 Start Date: 03/25/23 Status: Ordered Start: 03-24-2023 End: 01-03-2025 take 1 tablet by mouth once daily at bedtime topiramate (TOPAMAX) 25 mg tablet Take 1 tablet by mouth daily at bedtime. 30 tablet 2 06/14/2024 01/03/2025 Discontinued Comment on above: Take 1 tablet by jeramy th daily at bedtime. Problems Active Problems Problem Classification Problem Date Documented Date Episodic/Chronic Abdominal pain (3 sources) Abdominal pain; 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: [Unspecified abdominal pain] Onset: 12-15-19 Episodic Administrative/social admission (17 sources) Stress; 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: [Repeated prescription] 04-30-2023 Episodic Anxiety disorders (5 sources) Mixed anxiety and depressive disorder; 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: [Anxiety disorder, unspecified] Onset: 01-04-2006-01-2024 Chronic Asthma (20 sources) Unspecified asthma, uncomplicated; 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: [Asthma] Onset: 05-10-2001-21-2023 Chronic Comment on above: Added per Dr. Lise knowles response, per outpatient [facility] policy Cataract (1 source) Presence of intraocular lens; 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: [Pseudophakia] Onset: 08-10-20 Chronic Conditions associated with dizziness or vertigo (20 sources) Dizziness; 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: [Dizziness and giddiness] Onset: 07-02-20 Episodic Disorders of lipid metabolism (5 sources) Pure hypercholesterolemia, unspecified; 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: [PURE HYPERCHOLESTEROLEMIA UNSPEC] Onset: 05-31-20 Chronic Epilepsy; convulsions (2 sources) Seizure disorder; 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: [Epilepsy, unspecified, not intractable, without status epilepticus] Onset: 01-04-2001-03-2025 Chronic Essential hypertension (20 sources) Essential (primary) hypertension; 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: [Essential hypertension] Onset: 05-31-20 22 04-30-2023 Chronic Fluid and electrolyte disorders (14 sources) Hypokalemia 09-08-2023 Episodic Fracture of lower limb (8 sources) Fracture of foot 09-08-2023 Episodic Genitourinary symptoms and ill-defined conditions (1 source) Genuine stress incontinence; 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: [Stress incontinence (female) (male)] Onset: 03-25-2003-25-2023 Chronic Headache; including migraine (3 sources) Headache; 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: [Head pains] Episodic Heart valve disorders (5 sources) Tricuspid valve regurgitation; 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: [Rheumatic tricuspid insufficiency] Onset: 01-05-2007-05-2024 Chronic Immunizations and screening for infectious disease (2 sources) Encounter for immunization; 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: [Exposure to streptococcal pharyngitis] Onset: 05-10-2011-14-2024 Episodic Late effects of cerebrovascular disease (1 source) Ataxia as sequela of cerebrovascular disease; 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 Malaise and fatigue (5 sources) Other fatigue; 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: [OTHER FATIGUE] Onset: 10-29-19 Episodic Nonmalignant breast conditions (1 source) Fibrocystic disease of breast; 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: [Diffuse cystic mastopathy of unspecified breast] Onset: 03-25-20 23 03-25-2023 Chronic Nutritional deficiencies (2 sources) Vitamin D deficiency, unspecified; 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: [Vitamin D deficiency] Onset: 06-02-20 24 05-24-2024 Chronic Nutritional deficiencies (5 sources) Cobalamin deficiency; 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: [Deficiency of other specified B group vitamins] Onset: 05-24-20 24 05-24-2024 Episodic Osteoporosis (17 sources) Osteoporosis; 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: [Age-related osteoporosis without current pathological fracture] Onset: 03-26-20 23 01-21-2023 Chronic Other aftercare (1 source) Post-discharge follow-up 09-08-2023 Episodi c Other bone disease and musculoskeletal deformities (1 source) Osteopenia 08-11-2023 Episodic Other connective tissue disease (3 sources) Disorder of muscle; 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: [Other specified disorders of muscle] Onset: 02-04-20 Episodic Other connective tissue disease (10 sources) Pelvic floor dysfunction 02-04-2024 Episodi c Other connective tissue disease (1 source) Pain in toe 03-11-2024 Episodic Other ear and sense organ disorders (2 sources) Sensorineural hearing loss; 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: [Unspecified sensorineural hearing loss] 06-01-2024 Chronic Other ear and sense organ disorders (2 sources) Hearing loss; 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: [Unspecified hearing loss, unspecified ear] 06-28-2024 Chronic Other ear and sense organ disorders (1 source) Sensorineural hearing loss, bilateral; 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: [Sensorineural hearing loss, bilateral] Onset: 03-25-2003-25-2023 Chronic Other ear and sense organ disorders (1 source) Unspecified hearing loss, unspecified ear; 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: [Hearing loss, unspecified hearing loss type, unspecified laterality] Onset: 01-04-20 Chronic Other eye disorders (1 source) Vitreous degeneration, bilateral; 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: [Posterior vitreous detachment of both eyes] Onset: 08-10-20 Chronic Other eye disorders (1 source) Dry eye syndrome of bilateral lacrimal glands; 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: [Dry Eye Syndrome OU] Onset: 08-10-20 Episodic Other gastrointestinal disorders (20 sources) Irritable bowel syndrome characterized by constipation; 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: [Irritable bowel syndrome with constipation] Onset: 03-26-2002-17-2023 Chronic Other gastrointestinal disorders (1 source) Irritable bowel syndrome characterized by alternating bowel habit; 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: [Mixed irritable bowel syndrome] Onset: 02-04-20 Chronic Other gastrointestinal disorders (4 sources) Irritable bowel syndrome 02-04-2024 Chronic Other gastrointestinal disorders (1 source) Dysphagia; 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: [Dysphagia, unspecified] 01-03-2025 Episodic Other gastrointestinal disorders (1 source) Dysphagia, unspecified; 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: [Dysphagia, unspecified type] Onset: 01-04-20 Episodic Other hereditary and degenerative nervous system conditions (1 source) Mild cognitive impairment, so stated; 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: [Mild cognitive impairment, so stated] 06-01-2024 Chronic Other lower respiratory disease (17 sources) Dyspnea; 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: [Shortness of breath] 04-28-2023 Episodic Other lower respiratory disease (14 sources) Nodule of lung 09-03-2023 Episodic Other lower respiratory disease (1 source) Solitary nodule of lung; 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: [Solitary pulmonary nodule] Onset: 08-30-20 Episodic Other nervous system disorders (1 source) Other symptoms and signs involving cognitive functions and awareness; 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: [Other signs and symptoms involving cognition] 04-22-2024 Episodic Other non-traumatic joint disorders (2 sources) Knee pain 03-11-2024 Episodic Other nutritional; endocrine; and metabolic disorders (4 sources) Body mass index less than 20 07-22-2024 Episodic Other upper respiratory disease (1 source) Nasal congestion; 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: [Nasal congestion] 11-14-2024 Episodic Other upper respiratory infections (1 source) Pharyngitis; 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: [Acute pharyngitis, unspecified] 11-14-2024 Episodic Peripheral and visceral atherosclerosis (17 sources) Arteriosclerotic vascular disease; 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: [Atherosclerotic heart disease of [place] coronary artery without angina pectoris] Onset: 03-26-2001-21-2023 Chronic Pulmonary heart disease (3 sources) Pulmonary hypertension; 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: [Pulmonary hypertension, unspecified] Onset: 01-05-2007-05-2024 Chronic Residual codes; unclassified (1 source) Obstructive sleep apnea syndrome; 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: [Obstructive sleep apnea (adult) (pediatric)] 01-03-2025 Chronic Residual codes; unclassified (1 source) Obstructive sleep apnea (adult) (pediatric); 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: [DENZEL (obstructive sleep apnea)] Onset: 01-04-20 Chronic Residual codes; unclassified (2 sources) Pelvic organ finding; 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: [Acquired absence of both cervix and uterus] Onset: 02-04-20 Episodic Residual codes; unclassified (2 sources) Forgetful; 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: [Other general symptoms and signs] 02-27-2024 Episodic Residual codes; unclassified (7 sources) Memory impairment; 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: [Other amnesia] 04-14-2024 Episodic Residual codes; unclassified (1 source) History of chest pain; 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: [Personal history of other specified conditions] 06-21-2024 Episodic Syncope (9 sources) Syncope 09-08-2023 Episodic Unclassified (15 sources) Body mass index 20-24 - normal 01-21-2023 Unclassified (16 sources) Non-smoker 01-21-2023 Unclassified (14 sources) Peripheral arterial disease 08-11-2023 Comment on above: added per 08/08/2023 query response. Unclassified (7 sources) Finding of sensation of abdomen 12-15-2023 Unclassified (5 sources) Pain of knee region 01-20-2024 Past or Other Problems Problem Classification Problem Date Documented Da te Episodic/Chronic Cardiac dysrhythmias (1 source) Palpitations; 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: [PALPITATIONS] Onset: 06-13-2022 Episodic E Codes: Struck by; against (1 source) Striking against or struck by other objects, initial encounter; 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: [STRIKING AGNST/STRUCK OTH OBJ INIT] Onset: 05-10-2022 Episodic Inflammatory diseases of female pelvic organs (1 source) Chronic vulvitis; 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: [Subacute and chronic vulvitis] Onset: 03-25-2023 03-25-2023 Episodic Nonspecific chest pain (14 sources) Chest pain; 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: [Chest pain, unspecified] Onset: 07-11-2023 04-28-2023 Episodic Open wounds of extremities (4 sources) Laceration without foreign body of left elbow, initial encounter; 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: [LACERATION W/O FB LT ELBOW INITIAL] Onset: 05-07-2022 Episodic Open wounds of head; neck; and trunk (11 sources) Facial laceration ; 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: [Laceration without foreign body of other part of head, initial encounter] Onset: 03-26-2023 03-25-2023 Episodic Other aftercare (1 source) Other chcf (current) drug therapy; 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: [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] Onset: 05-10-2022 Episodic Other screening for suspected conditions (not mental disorders or infectious disease) (4 sources) Encounter for screening mammogram for malignant neoplasm of breast; 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: [ENC SCR MAMMO MALIG NEOPLASM BREAST] Onset: 03-14-2022 Episodic Residual codes; unclassified (1 source) Family history of malignant neoplasm of breast; 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: [FAMILY HX MALIG NEOPLASM OF BREAST] Onset: 03-15-2022 Episodic Residual codes; unclassified (2 sources) Other amnesia; 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: [Memory impairment] Onset: 05-24-2024 Episodic Residual codes; unclassified (1 source) Other general symptoms and signs; 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: [Forgetfulness] Onset: 03-01-2024 Episodic Residual codes; unclassified (1 source) Body mass index 20-24 - normal; 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: [Body mass index (BMI) 21.0-21.9, adult] Onset: 03-26-2023 03-26-2023 Episodic Residual codes; unclassified (1 source) Non-smoker; 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: [Other specified health status] Onset: 03-26-2023 03-26-2023 Episodic Results Test Name Value Interpretation Reference Range Facil ity CBC w/ Auto Diffon 5 Basophil Absolute 0.1 E9/L Normal 0.0-0.2 [facility] Comment on above: Performed By: #### 2 [id number] #### [facility] [address] [place] [address] Basophils/100 WBC (Bld) 0.7 % Normal 0.0-2.0 [facility] Comment on above: Performed By: #### 2 [id number] #### [facility] [address] [place] [address] Eos Absolute 0.1 E9/L Normal 0.0-0.5 [facility] Comment on above: Performed By: #### 2 [id number] #### [facility] [address] [place] [address] Eosinophils/100 WBC (Bld) 1.0 % Normal 0.0-8.0 [facility] Comment on above: Performed By: #### 2 [id number] #### [facility] [address] [place] [address] Erythrocyte distribution width (RBC) [Ratio] 14.3 % High 10.9-14.2 [facility] Comment on above: Performed By: #### 2 [id number] #### [facility] [address] [place] [address] Hematocrit (Bld) [Volume fraction] 44.0 % Normal 34.0-46.0 [facility] Comment on above: Performed By: #### 2 [id number] #### [facility] [address] [place] [address] Hemoglobin (Bld) [Mass/Vol] 15.1 g/dL Normal 12.0-16.0 [facility] Comment on above: Performed By: #### 2 [id number] #### [facility] [address] [place] [address] Lymph Absolute 2.3 E9/L Normal 1.0-4.0 [facility] Comment on above: Performed By: #### 2 [id number] #### [facility] [address] [place] [address] Lymphocytes/100 WBC (Bld) 22.6 % Normal 14.0-50.0 [facility] Comment on above: Performed By: #### 2 [id number] #### [facility] [address] [place] [address] MCH (RBC) [Entitic mass] 31.6 pg Normal 27.0-34.0 [facility] Comment on above: Performed By: #### 2 [id number] #### [facility] [address] [place] [address] MCHC (RBC) [Mass/Vol] 34.2 g/dL Normal 31.4-36.0 [facility] Comment on above: Performed By: #### 2 [id number] #### [facility] [address] [place] [address] MCV (RBC) [Entitic vol] 92.3 fL Normal 80.0-100.0 [facility] Comment on above: Performed By: #### 2 [id number] #### [facility] [address] [place] [address] [place] Absolute 0.8 E9/L Normal 0.2-1.0 [facility] Comment on above: Performed By: #### 2 [id number] #### [facility] [address] [place] [address] Monocytes/100 WBC (Bld) 7.9 % Normal 4.0-14.0 [facility] Comment on above: Performed By: #### 2 [id number] #### [facility] [address] [place] [address] Neutro Absolute 6.9 E9/L Normal 2.0-7.5 [facility] Comment on above: Performed By: #### 2 [id number] #### [facility] [address] [place] [address] Neutro Auto 67.8 % Normal 36.0-75.0 [facility] Comment on above: Performed By: #### 2 [id number] #### [facility] [address] [place] [address] [place]let 346.0 E9/L Normal 150.0-500.0 [facility] Comment on above: Performed By: #### 2 [id number] #### [facility] [address] [place] [address] Platelet mean volume (Bld) [Entitic vol] 8.6 fL Normal 6.4-10.8 [facility] Comment on above: Performed By: #### 2 [id number] #### [facility] [address] [place] [address] RBC 4.8 E12/L Normal 4.3-5.9 [facility] Comment on above: Performed By: #### 2 [id number] #### [facility] [address] [place] [address] WBC 10.2 E9/L Normal 4.0-11.0 [facility] Comment on above: Performed By: #### 2 [id number] #### [facility] [address] [place] [address] CMPon 01-28-2025 Albumin [Mass/Vol] 4.7 g/dL Normal 3.3-5.0 [facility] Comment on above: Performed By: #### 2 [id number] #### [facility] [address] [place] [address] Albumin/Globulin [Mass ratio] 2.1 {ratio} Normal 1.1-2.2 [facility] Comment on above: Performed By: #### 2 [id number] #### [facility] [address] [place] [address] Alk Phos 67 Int._Unit/L Normal 21-98 [facility] Comment on above: Performed By: #### 2 [id number] #### [facility] [address] [place] [address] ALT 21 Int._Unit/L Normal 6-46 [facility] Comment on above: Performed By: #### 2 [id number] #### [facility] [address] [place] [address] Anion gap [Moles/Vol] 14 mmol/L Normal 6-16 [facility] Comment on above: Performed By: #### 2 [id number] #### [facility] [address] [place] [address] AST 33 Int._Unit/L Normal 5-43 [facility] Comment on above: Performed By: #### 2 510702 #### [facility] [address] [place] [address] Bili Total 0.4 mg/dL Normal 0.0-1.1 [facility] Comment on above: Performed By: #### 2 [id number] #### [facility] [address] [place] [address] BUN/Creat Ratio 29 No Units High 10-20 [facility] Comment on above: Performed By: #### 2 [id number] #### [facility] [address] [place] [address] Calcium [Mass/Vol] 9.9 mg/dL Normal 8.9-11.1 [facility] Comment on above: Performed By: #### 2 642252 #### [facility] [address] [place] [address] Chloride [Moles/Vol] 103 mmol/L Normal 101-111 [facility] Comment on above: Performed By: #### 2 [id number] #### [facility] [address] [place] [address] CO2 [Moles/Vol] 24 mmol/L Normal 21-31 [facility] Comment on above: Performed By: #### 2 953881 #### [facility] [address] [place] [address] Creatinine [Mass/Vol] 0.7 mg/dL Normal 0.5-1.3 [facility] Comment on above: Performed By: #### 2 305449 #### [facility] [address] [place] [address] Globulin (S) [Mass/Vol] 2.2 g/dL Normal 1.4-4.0 [facility] Comment on above: Performed By: #### 2 366198 #### [facility] [address] [place] [address] Glucose [Mass/Vol] 57 mg/dL Normal 55-199 [facility] Comment on above: Performed By: #### 2 337101 #### [facility] [address] [place] [address] Potassium [Moles/Vol] 4.2 mmol/L Normal 3.5-5.3 [facility] Comment on above: Performed By: #### 2 [id number] #### [facility] [address] [place] [address] Protein [Mass/Vol] 6.9 g/dL Normal 6.0-7.8 [facility] Comment on above: Performed By: #### 2 [id number] #### [facility] [address] [place] [address] Sodium [Moles/Vol] 137 mmol/L Normal 135-145 [facility] Comment on above: Performed By: #### 2 [id number] #### [facility] [address] [place] [address] Urea nitrogen [Mass/Vol] 20 mg/dL Normal 5-21 [facility] Comment on above: Performed By: #### 2 107914 #### [facility] [address] [place] [address] Lipid Panelon 01-28-2025 Cholesterol [Mass/Vol] 218 mg/dL High 120-200 [facility] Comment on above: Performed By: #### 2 094049 #### [facility] [address] [place] [address] Cholesterol in HDL [Mass/Vol] 78 mg/dL Invalid Interpretation Code [facility] Comment on above: Result Comment: '>= 60 LOW RISK' '<= 40 HIGH RISK' Performed By: #### 2 [id number] #### [facility] [address] [place] [address] Cholesterol in LDL [Mass/Vol] 125 mg/dL Normal <=129 [facility] Comment on above: Performed By: #### 2 [id number] #### [facility] [address] [place] [address] Cholesterol in VLDL [Mass/Vol] 25 mg/dL Normal 7-40 [facility] Comment on above: Performed By: #### 2 [id number] #### [facility] [address] [place] [address] Triglyceride [Mass/Vol] 124 mg/dL Normal <=149 [facility] Comment on above: Performed By: #### 2 [id number] #### [facility] [address] [place] [address] eGFRon 01-28-2025 eGFR 86 mL/min/1.73 m2 Normal >=59 [facility] Comment on above: Performed By: #### 1 [id number] #### [facility] [address] [place] [address] Family Medicine Office/Clini c Noteon 01-27-2025 Family Medicine Office/Clinic Note Family Medicine Office/Clinic Note Chief Complaint The patient reports episodes of dizziness and persistent headaches. HPI Staff 6m follow up 07/22/24 discussed increasing Lexapro to 10mg. Follow up for Mental Status: Medication adherence- Yes, takes medication as prescribed Medication refill needed: _ Suicidal thoughts-Not at this time Most recent RONI: 1 Most recent PHQ: 2 Referred to pulmonology @ [facility] due to asthma. (albuterol not alleviating sx) CT chest 11/26/24 PFTS 09/26/24 CECILIA 11/16/24 Sick visit due to ongoing cough. (Tx'd w/amoxicillin & nasal spray) History of Present Illness - The patient is an 79-year-old female presenting with dizziness and headaches. - Reports of dizziness described as vertigo have been persistent, and she has been evaluated at the [facility]. - The dizziness is noted despite sufficient fluid intake. - Headaches are linked to dissatisfaction with recent changes in eyeglasses obtained three months ago. - She experiences skin bruising, possibly due to thin skin, without specific recent trauma. - An echocardiogram is scheduled to assess for any cardiac involvement in her dizziness. Review of Systems PHQ Score Initial Depression Screen Score: 0 SCORE Physical Exam Vitals & Measurements T: 36.4 ???C(Oral) HR: 64(Peripheral) RR: 20 BP: 128/88 SpO2: 100% HT: 62 in HT: 158.0 cm WT: 111.995 lb WT: 50.8 kg BMI: 20.35 General: alert, no acute distress ENMT: oral mucosa moist Cardiovascular: Regular rate and rhythm, normal peripheral perfusion Respiratory: Lungs clear to auscultation, respirations non labored Extremities: no deformity, no trauma, bruising noted on arms, skin appears thin Neurological: oriented x 4, level of consciousness appropriate for age, CN II-XII intact, motor strength equal & normal bilaterally, speech normal, reports headaches and dizziness (vertigo) Abdomen: Soft, Non-tender, Non-distended, + Bowel sounds Assessment/Plan 1. Asthma, mild intermittent (J45.20: Mild intermittent asthma, uncomplicated) - Controlled. - Follow up PRN. Ordered: CBC w/ Auto Diff Comprehensive Metabolic Panel Lipid Panel 2. Dizziness (R42: Dizziness and giddiness) - Continue [facility] evaluations and echocardiogram as scheduled. - Emphasize adequate hydration. Ordered: CBC w/ Auto Diff Comprehensive Metabolic Panel Lipid Panel 3. Irritable bowel syndrome with constipation (K58.1: Irritable bowel syndrome with constipation) - Improving - Continue as before. Ordered: CBC w/ Auto Diff Comprehensive Metabolic Panel Lipid Panel 4. Peripheral arterial disease (I73.9: Peripheral vascular disease, unspecified) - Maintain current management strategies. Ordered: CBC w/ Auto Diff Comprehensive Metabolic Panel Lipid Panel 5. Primary hypertension (I10: Essential (primary) hypertension) - Blood pressure stable; continue with current hypertension management. Ordered: CBC w/ Auto Diff Comprehensive Metabolic Panel Lipid Panel 6. Non-smoker (Z78.9: Other specified health status) - Reinforce non-smoking benefits for cardiovascular health. Ordered: CBC w/ Auto Diff Comprehensive Metabolic Panel Lipid Panel 7. Headache, unspecified (R51.9) - Review eyeglass prescription and fitting to address dissatisfaction and headaches. Ordered: CBC w/ Auto Diff Comprehensive Metabolic Panel Lipid Panel Orders: escitalopram, 10 mg = 1 tab(s), Oral, Daily, # 90 tab(s), Refills(s) 1, Pharmacy: [facility]/pharmacy #[id number], 158, cm, 01/27/25 15:52:00 EDT, Height/Length Dosing, 50.8, kg, 01/27/25 15:52:00 EDT, Weight Dosing - Labs ordered during the visit to evaluate potential underlying causes of dizziness and headaches. - 79-year-old female with a history of mild intermittent asthma and primary hypertension presenting with dizziness and headaches. - Dizziness is a chronic issue, with ongoing evaluation, including an upcoming echocardiogram. - Headaches potentially linked to recent changes in eyeglasses. - Peripheral Arterial Disease noted, potentially impacting dizziness. - Non-smoker status contributes positively to overall health profile. During the visit, I discussed with the patient her ongoing symptoms of dizziness and headaches. We reviewed her current management plan, including the upcoming echocardiogram to investigate any cardiac issues contributing to dizziness. I emphasized the importance of maintaining adequate hydration. We also discussed her dissatisfaction with her current eyeglasses, which she associates with her headaches, and recommended evaluating the prescription. We acknowledged her history of peripheral arterial disease as a potential contributing factor to her dizziness. Her non-smoking status was noted as beneficial for her overall health. We concluded our discussion by ensuring that she understood the plans for further evaluation and management of her symptoms. - Drink plenty of water to stay hydrated (more content not included)... Normal [facility] Comment on above: Result Comment: Elec tronically Signed By: Lise DOS SANTOS, Srinivasan Milligan\.br\Date and Time Signed: 01/27/25 16:10 EDT Tru 01-04-2025 [facility] Office Visit (VENITA) DORIE ROOT ([id number]) 1945 F Date Time Provider Department 01/04/25 11:00 AM RACHAEL CHANEY During your visit today, we recorded the following information about you: Pulse Blood pressure Weight Height 61/minute 156/66 51.3 kg 1.575 m Rachael Chaney MD 01/04/2025 12:12 PM Signed [facility] [facility] Department of Cardiovascular Medicine SECTION OF REGIONAL CARDIOLOGY OUTPATIENT VISIT DATE January 04, 2025 OUTPATIENT VISIT TYPE ESTABLISHED HISTORY OF PRESENT ILLNESS: Dorie Root is a (an) 79 year old year old female who is here today for follow-up. She is getting forgetful. Since last visit denies chest pain, SOB, palpitations or lightheadedness. Presents with her Last OV 07/05/24 Dorie Root is a (an) 79 year old year old female who is here today for follow-up. She was placed on Amlodipine and her for follow up BP check. Denies interval symptoms changes Presents with sister. is in hospital with a stroke Dorie Root is a (an) 79 year old year old female who is here today for follow-up. Since last visit denies chest pain, SOB, palpitations or lightheadedness. She reports today that she has been taking Lisinopril-HCTZ 10-12.5 mg daily for years (not Lisinopril 10 mg daily) Dorie Root is a 77 year old female from [place], [place] here today self referral. Has h/o [...] Social History Tobacco Use Smoking status: Never Smokeless tobacco: Current ALLERGIES: Patient has no known allergies. CURRENT MEDICATIONS: Current Outpatient Medications Medication Sig memantine (NAMENDA) 10 mg tablet Take 1 tablet by mouth two times a day. amLODIPine (NORVASC) 5 mg tablet Take 1 tablet by mouth once daily. lisinopril-hydroCHLO ROthiazide (ZESTORETIC) 10-12.5 mg per tablet Take 1 tablet by mouth once daily. escitalopram oxalate (LEXAPRO) 5 mg tablet Take 1 tablet by mouth daily at bedtime. BENEFIBER, GUAR GUM, ORAL Take by mouth. Coenzyme S90-[id number] E 100-5 mg-unit cap 2 gels Orally LUTEIN-ZEAXANTHIN ORAL Take by mouth. cyanocobalamin, vitamin B-12, (VITAMIN B-12) 5,000 mcg subl Dissolve under the tongue. fsh/flx/prim/cur/bor /om3,6,9 5 (OMEGA 3-6-9 FATTY ACIDS ORAL) Take by mouth. Ascorbic Acid (VITAMIN C) 1,000 mg tablet Take 1,000 mg by mouth once daily. ALBUTEROL 90 MCG/ACTUATION AEROSOL INHALER as needed [...] Last 3 Encounter BP Readings: Date: BP: 01/03/2025 183/74 10/01/2024 151/53 07/05/2024 132/60 Last 3 Encounter Pulse Readings: Date: Pulse: 01/03/2025 56 10/01/2024 64 07/05/2024 62 Last 3 Encounter Wt Readings: Date: Wt: 01/03/2025 51.6 kg (113 lb 12.1 oz) 07/05/2024 49.5 kg (109 lb 2 oz) 06/21/2024 49.9 kg (110 lb 0.2 oz) BP 156/66 Pulse 61 Ht 5' 2 (1.58m) Wt 113 lb 1.5 oz (51.3kg) SpO2 98% BMI 20.68 kg/(m2). GENERAL: no acute distress HEENT:Atraumatic, normocephalic. NECK: No JVD, no carotid bruit, normal carotid upstrokes, no thyromegaly CARDIAC: Regular rhythm. Normal S1 and S2. No murmur, rub or gallop. LUNGS: clear to auscultation, no rhonchi, no rales, no wheezes ABDOMEN: Bowel sounds normal. EXTREMITIES: No peripheral edema NEURO: Oriented to person, place, and time. Appropriate and cooperative, no gross deficit. LABS: Cholesterol, Total (mg/dL) Date Value 07/11/2023 209 HDL Cholesterol (mg/dL) Date Value 07/11/2023 76 LDL Cholesterol, Calculated (mg/dL) Date Value 07/11/2023 115 Triglyceri (more content not included)... Normal [facility] ECG COMPLETEon 01-04-2025 ECG COMPLETE Ventricular Rate : 61 BPM Atrial Rate : 61 BPM P-R Interval : 148 ms QRS Duration : 84 ms Q-T Interval : 402 ms QTC Calculation(Bazett) : 404 ms Calculated P [place] : 72 degrees Calculated R [place] : 91 degrees Calculated T [place] : 73 degrees NORMAL SINUS RHYTHM RIGHT AXIS BORDERLINE ECG Confirmed by SAMEER MONZON MD ([id number]) on 01/27/2025 8:36:31 AM NAME : DORIE ROOT PID : [id number] : 1945 Gender : Female Race : ORD : [id number] Procedure Date : Jan 04 2025 10:54:39 Edit Date : Jan 27 2025 08:36:34 Diagnosis: NORMAL SINUS RHYTHM RIGHT AXIS BORDERLINE ECG Confirmed by SAMEER MONZON MD ([id number]) on 01/27/2025 8:36:31 AM Test Reason : I07.1 Tricuspid valve insufficiency, unspecified etiology Location : 192 : AVCRD Overread By : SAMEER MONZON MD Edited By : SAMEER MONZON MD Referred By : , Acquired by : , Normal [facility] CNOVon 01-03-2025 CNOV Office Visit (IMGCMN) DORIE ROOT ([id number]) 1945 F Date Time Provider Department 01/03/25 10:30 AM CASSIUS JIMÉNEZ [facility] During your visit today, we recorded the following information about you: Pulse Blood pressure Weight 56/minute 183/74 51.6 kg Cassius Jiménez MD 01/04/2025 3:42 PM Signed [facility] Follow Up Consult Dorie Root is a 79 year old year old female who comes for Comprehensive Geriatric Assessment. HPI: Last seen June 2024 Ms. Root has had serial memory decline - She is now repeating herself more when having conversations. She has had serial functional decline - She now has trouble remembering how to cook certain things. She will forget what settings to use on the washing machine. Dizzy spells - Ms. Root reports dizziness is getting worse. Spells last for a few minutes and happen multiple times a day. She denies feelings like the room is spinning. Frustration and getting upset Difficulty swallowing - Choking while eating, which started in July and has been getting worse. Son (Chung) is a salon shampoo assistant for [employer], lives in [place], and has 2 daughters. is trying to get son to help more with patient. Son scheduled to visit in June. reports son has a calming effect on the patient. Any Family History of dementia? Yes, mother Are you or your spouse a ? NO, Son (Chung) was [employer] Are there any firearms in the home? Ask next visit Social History: Primary language: Bangladeshi Marital Status: Living situation: Home w/ Spouse Socially engaged? 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 does not have a good relationship with 2 of his step children who are not in the patient's life. Concerned about leaving house due to incontinence B-ADLs: (I=independent,A=ass istance,D=dependent) ?Bathing: I, Dressing: I, Toileting: I, Transferring:I, Continence: I, Feeding: I, (Canas Index): 02/04 I-ADLs: Ability to use phone: I, Shopping: A, Cooking: A, Housekeeping: I, Laundry: I, Transportation:I, Medications: I, Handle Finances: D. 3 months ago patient stopped handling finances and now handles them (Mendez scale): 03/08 PMHx: Home Meds: Current Outpatient Medications Medication Sig Dispense Refill memantine (NAMENDA) 5 mg tablet Take 1 tablet by mouth two times a day. 60 tablet 2 amLODIPine (NORVASC) 5 mg tablet Take 1 tablet by mouth once daily. 90 tablet 3 lisinopril-hydroCHLO ROthiazide (ZESTORETIC) 10-12.5 mg per tablet Take 1 tablet by mouth once daily. topiramate (TOPAMAX) 25 mg tablet Take 1 tablet by mouth daily at bedtime. 30 tablet 2 escitalopram oxalate (LEXAPRO) 5 mg tablet Take 1 tablet by mouth daily at bedtime. 60 tablet 2 BENEFIBER, GUAR GUM, ORAL Take by mouth. Coenzyme B66-[id number] E 100-5 mg-unit cap 2 gels Orally LUTEIN-ZEAXANTHIN ORAL Take by mouth. cyanocobalamin, vitamin B-12, (VITAMIN B-12) 5,000 mcg subl Dissolve under the tongue. fsh/flx/prim/cur/bor /om3,6,9 5 (OMEGA 3-6-9 FATTY ACIDS ORAL) Take by mouth. Ascorbic Acid (VITAMIN C) 1,000 mg tablet Take 1,000 mg by mouth once daily. ALBUTEROL 90 MCG/ACTUATION AEROSOL INHALER as needed 0 0 Medication Review: - ANY HIGH RISK MEDICATIONS (STOPP CRITERIA): YES, Hydroxyzine ALLERGIES No Known Allergies Review of Systems Difficulty chew/swallow: No Pain: No Tremor: No Incontinence - During the last 3 months did you leak urine? NO - Type?: None Constipation/Change in bowel habits: YES, diarrhea and constipation, urge incontinence Vision Positive for vision impairment and wears glasses Follows with food and beverage intern:YES Hearing - Hearing aid : Hearing impairment, wears bilateral hearing aids, did not wear them to appointment. Concerned they might fall. Falls: .: Falls in the last 12 months: Positive: If + falls: Fell stepping off a curb, had to go to ED 06/18/2024 11:08 PM - Radiology, [place] In Impression IMPRESSION: * No evidence of an acute intracranial process or intracranial mass. * Moderate to severe generalized volume loss, most pronounced in the temporal and parietal lobes. * Hippocampal volumes at the 5th percentile when compared to age matched normal controls by quantitative analysis. * Mild white matter disease which is nonspecific but likely reflective of chronic microvascular ischemia. 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 * Isolated parenchymal microhemorrhage by MRI whic (more content not included)... Normal [facility] CT Chest w/o Contraston - CT Chest w/o Contrast Exam Date/Time: 11/26/2024 12:02 EDT Reason for Exam: R91.1;Lung nodule Report IMPRESSION: RIGHT LUNG NODULES AGAIN IDENTIFIED AND UNCHANGED. NO NEW NODULES IDENTIFIED. OLD GRANULOMATOUS DISEASE. EMPHYSEMA. SINCE PULMONARY EMPHYSEMA ON LUNG CT IS AN INDEPENDENT RISK FACTOR FOR LUNG CANCER, RECOMMEND PATIENT BE EVALUATED FOR CT LUNG SURVEILLANCE PROGRAM. CT IMAGING OF THE CHEST WITHOUT INTRAVENOUS CONTRAST MEDIUM. HISTORY: LUNG NODULE. FOLLOW-UP. TECHNICAL FACTORS: CT imaging of the chest was obtained and matted as 5.0 mm contiguous axial images from the thoracic inlet through the adrenal glands. Sagittal and coronal reconstructions obtained during postprocessing. Comparison: CT chest, 11/05/2023. FINDINGS: Right lun mm right apical nodule (series 5, image 27), unchanged. 4 mm pleural-based noncalcified right upper lobe nodule (series 5, image 44), unchanged. Calcified granuloma, right lung base. No consolidation, pleural effusion, pneumothorax. Fibrotic change, right lung apex, stable. Scarring, base right middle lobe. Emphysema. Left lung: No nodules, masses, consolidation, pleural effusion, pneumothorax mild fibrotic change left lung apex again identified. Pleural-based calcified granuloma superior segment left lower lobe (series 5, image 38), unchanged. Lymph nodes: No hilar, mediastinal, or axillary lymph node enlargement. Thoracic aorta: Normal in course and caliber. Cardiac: Cardiac size enlarged, unchanged. No pericardial effusion. No coronary artery calcification Upper abdomen:Limited imaging upper abdomen shows multiple punctate calcifications within the spleen. Musculoskeletal:No osteoblastic, and no osteolytic lesions. Report All CT scans at this facility use dose modulation, iterative reconstruction, and/or weight based dosing when appropriate to reduce radiation dose to as low as reasonably achievable. Ordering Provider: Zack Rooney FINAL REPORT Dictated: 11/26/2024 12:47 pm Hugo Oates MD Signed (Electronic Signature): 11/26/2024 12:47 pm Signed by: Hugo Oates MD Transcribed by: ROSARIO Technologist: SALVATORE [facility] Ambulatory Visit Summaryon 0 11-16-2024 Ambulatory Visit Summary Ambulatory Visit Summary DORIE ROOT :1945 Visit Date:11/16/2024 Ambulatory Visit Instructions Your Diagnosis Cough Your Care Team Attending Physician - Srinivasan Lezama MD Primary Care Physician - Srinivasan Lezama MD. This Is Your Medications List albuterol (Albuterol (Eqv-ProAir HFA) 90 mcg/inh inhalation aerosol) amlodipine (amLODIPine 5 mg Tab) amoxicillin ascorbic acid (Lina-C) calcium carbonate (Caltrate) escitalopram (escitalopram 10 mg Tab) fluticasone-vilanter ol (Breo Ellipta 200 mcg-25 mcg/inh inhalation powder) hydrOXYzine (hydrOXYzine hydrochloride 10 mg Tab) hydrochlorothiazide- lisinopril (hydrochlorothiazide -lisinopril 12.5 mg-10 mg Tab) lutein (Lutein) memantine (memantine 5 mg Tab) omega-3 polyunsaturated fatty acids (Rutledge-3 Fish Oil) ubiquinone (CoQ10 100 mg oral capsule) wheat dextrin (Benefiber) Procedures Performed Colonoscopy (10/01/2021), Dilatation and curettage: routine. Discharge Vitals Temperature (Tympanic) 36.7 ???C Heart Rate (Peripheral) 74 Respiratory Rate 18 Blood Pressure 132/84 Height 158 cm Height 62 in Weight 50.6 kg Weight 111.554 lb BMI 20.27 What to do next Scheduled Follow-Up Appointments Friday 12:00 PM EDT With: Where: [facility] 2024 1:20 PM EDT With: Lise DOS SANTOS, Srinivasan Milligan Where: [address] [address]- Friday 1:00 PM EST With: Where: [address] [address]- Medications What How Much When Instructions Unchanged albuterol (Albuterol (Eqv-ProAir HFA) 90 mcg/ inh inhalation aerosol) 2 Puffs Inhalation Every 6 hours Unchanged amlodipine (amLODIPine 5 mg Tab) TAKE 1 TABLET BY MOUTH EVERY DAY Unchanged amoxicillin 2,000 Milligram By Mouth Once as needed for Other (see comment) 30 to 60 minutes prior to dental procedure Unchanged ascorbic acid (Lina-C) By Mouth Every day Unchanged calcium carbonate (Caltrate) By Mouth Every day Unchanged escitalopram (escitalopram 10 mg Tab) 1 Tablets By Mouth Every day Unchanged fluticasone-vilanter ol (Breo Ellipta 200 mcg-25 mcg/ inh inhalation powder) See instructions INHALE 1 PUFF BY MOUTH DAILY Unchanged hydrochlorothiazide- lisinopril (hydrochlorothiazide -lisinopril 12.5 mg-10 mg Tab) See instructions TAKE 1 TABLET BY MOUTH DAILY Unchanged hydrOXYzine (hydrOXYzine hydrochloride 10 mg Tab) See instructions TAKE 1 TABLET BY MOUTH 4 TIMES A DAY NEEDED FOR ANXIETY Unchanged lutein (Lutein) By Mouth Every day Unchanged memantine (memantine 5 mg Tab) TAKE 1 TABLET BY MOUTH TWICE A DAY Unchanged omega-3 polyunsaturated fatty acids (Rutledge-3 Fish Oil) By Mouth 3 times a day Unchanged ubiquinone (CoQ10 100 mg oral capsule) Unchanged wheat dextrin (Benefiber) See instructions uses guar gum orally by mouth Allergies No Known Allergies No Known Medication Allergies Problems Ongoing - Any problem that you are currently receiving treatment for. ASCVD (arteriosclerotic cardiovascular disease) Asthma, mild intermittent BMI 21.0-21.9, adult Body mass index (BMI) of 19.0-19.9 in adult Dizziness H/O: hysterectomy Irritable bowel syndrome with constipation Lung nodule Moderate persistent asthma Non-smoker Osteoporosis Pelvic floor dysfunction Peripheral arterial disease Primary hypertension Shortness of breath Stress Historical - Any problem that you are no longer receiving treatment for. Hypokalemia Patient Survey You may receive a survey via text or e-mail asking about your office visit. Please share your experience with us by completing your survey. We appreciate your feedback and thank you for choosing us for your care. Nataliia Ayoub [facility] Family Medicine Office/Clini c Noteon 11-16-2024 Family Medicine Office/Clinic Note Family Medicine Office/Clinic Note Chief Complaint Sick Visit The patient presents with a cough lasting several days. HPI Staff Pt presents today for acute sick visit. Coughing, Congestion, headaches, dizziness. Started last . Went to urgent care Sat or Sun. NEG covid, flu & strep. Was sent home with amoxicillin. Still taking. Here today to ensure correct diagnosis & tx. PFT's 09/26/24 CT Chest pending. History of Present Illness The patient is an 79-year-old female presenting with a cough. The cough began roughly a week ago, and despite the initial onset of symptoms, she has undergone tests for COVID-19 and influenza with negative results. Current management includes the use of amoxicillin and nasal saline for sinus drainage, indicating previous empiric treatment attempts to address potential bacterial involvement or sinonasal issues. No further details, such as specific symptom characteristics or quality, were noted as reported by the patient. Review of Systems PHQ Score Initial Depression Screen Score: 0 SCORE Physical Exam Vitals & Measurements T: 36.7 ???C(Tympanic) HR: 74(Peripheral) RR: 18 BP: 132/84 SpO2: 97% HT: 62 in HT: 158 cm WT: 50.6 kg WT: 111.554 lb BMI: 20.27 General: alert, no acute distress ENMT: oral mucosa moist Cardiovascular: Regular rate and rhythm, normal peripheral perfusion Respiratory: Lungs clear to auscultation, respirations non labored Extremities: no deformity, no trauma Neurological: oriented x 4, level of consciousness appropriate for age, CN II-XII intact, motor strength equal & normal bilaterally, speech normal Abdomen: Soft, Non-tender, Non-distended, + Bowel sounds Assessment/Plan 1. Cough (R05.9: Cough, unspecified) Management includes ongoing use of amoxicillin and nasal saline solution, responding to potential bacterial sinus-related causes while monitoring for symptom improvement or the development of complications. Follow-up is advised if symptoms persist or worsen. Ordered: Influenza Type A&B POC 62654 Rapid COVID POC [id number] 79-year-old female with a history of a cough presenting with symptoms that began approximately one week ago. Negative testing for COVID-19 and influenza suggests a non-viral origin. Current treatment with amoxicillin and nasal saline targets potential bacterial sinus issues, with follow-up recommended for symptom monitoring. I discussed with the patient the likely etiology of her cough considering negative COVID-19 and influenza test results. The management plan includes continuing treatment with amoxicillin and nasal saline, targeting potential bacterial sinus involvement. I emphasized the importance of monitoring her symptoms closely and advised her to follow up if there is no improvement or if symptoms exacerbate, outlining the plan for further intervention if necessary. The discussion included understanding her adherence to current treatment and anticipated observation of symptom changes, with an emphasis on prompt reporting of any new or worse symptoms. Follow-up No qualifying data available Problem List/Past Medical History Ongoing ASCVD (arteriosclerotic cardiovascular disease) Asthma, mild intermittent BMI 21.0-21.9, adult Body mass index (BMI) of 19.0-19.9 in adult Dizziness H/O: hysterectomy Irritable bowel syndrome with constipation Lung nodule Moderate persistent asthma Non-smoker Osteoporosis Pelvic floor dysfunction Peripheral arterial disease Primary hypertension Shortness of breath Stress Historical Hypokalemia Procedure/Surgical History Colonoscopy (10/01/2021), Dilatation and curettage: routine. Medications Albuterol (Eqv-ProAir HFA) 90 mcg/inh inhalation aerosol, 180 mcg= 2 puff(s), Inhalation, q6hr amLODIPine 5 mg Tab amoxicillin, 2000 mg, Oral, Once, PRN Benefiber, See Instructions Breo Ellipta 200 mcg-25 mcg/inh inhalation powder, See Instructions Caltrate, Oral, Daily CoQ10 100 mg oral capsule escitalopram 10 mg Tab, 10 mg= 1 tab(s), Oral, Daily, 1 refills Lina-C, Oral, Daily hydrochlorothiazide- lisinopril 12.5 mg-10 mg Tab, See Instructions hydrOXYzine hydrochloride 10 mg Tab, See Instructions Lutein, Oral, Daily memantine 5 mg Tab Rutledge-3 Fish Oil, Oral, TID Allergies No Known Allergies No Known Medication Allergies Social History Alcohol Never, 07/22/2024 Substance Abuse Never, 07/22/2024 Tobacco Never (less than 100 in lifetime) Tobacco Use:. Never Smokeless Tobacco Use:. Household tobacco concerns: No. Yes, 11/16/2024 Family History Family history is negative Immunizations Vaccine Date Status Comments influenza virus vaccine, inactivated 06/14/2024 Recorded influenza virus vaccine, inactivated - Not Given Patient Refuses influenza virus vaccine, inactivated 06/23/2023 Recorded pneumococcal 20-valent conjugate vaccine 11/20/2022 Recorded influenza virus vaccine, inactivated 06/21/2022 Recorded SARS-CoV-2 (COVID-19) mRNA (more content not included)... Normal [facility] Comment on above: Result Comment: Elec tronically Signed By: Lise DOS SANTOS, Srinivasan Lynn.nidhi\Date and Time Signed: 11/16/24 11:35 EDT S. pyogenes DNA STEFANI+probe No m (Unsp spec)Ordered By: Radha Gaviria on 11-15-2024 Interpretation and review of laboratory results Normal [facility] RESULT Negative Negative [facility] CNOVon 10-01-2024 CNOV Office Visit (NEURAV) DORIE ROOT ([id number]) 1945 F Date Time Provider Department 10/01/24 11:00 AM ISAAC MATSON NEURAV During your visit today, we recorded the following information about you: Pulse Blood pressure 64/minute 151/53 Isaac Matson MD 10/01/2024 10:40 AM Signed NEUROLOGY PROGRESS NOTE Dorie Root is a 79 year old female. Who has a history of headaches comes in for follow up. Interval History Dorie Root is a 79 year old female, with a history of [...] has had therapy but to no avail. Patient has not started the Topamax. Apparently the headaches have resolved. Will continue to observe symptomatologies. She follows up with geriatrics for memory issues. There is no problem list on file for this patient. No past surgical history on file. Current Outpatient Medications on File Prior to Visit Medication Sig memantine (NAMENDA) 5 mg tablet Take 1 tablet by mouth two times a day. amLODIPine (NORVASC) 5 mg tablet Take 1 tablet by mouth once daily. lisinopril-hydroCHLO ROthiazide (ZESTORETIC) 10-12.5 mg per tablet Take 1 tablet by mouth once daily. escitalopram oxalate (LEXAPRO) 5 mg tablet Take 1 tablet by mouth daily at bedtime. BENEFIBER, GUAR GUM, ORAL Take by mouth. Coenzyme F07-Wlwknjo E 100-5 mg-unit cap 2 gels Orally LUTEIN-ZEAXANTHIN ORAL Take by mouth. cyanocobalamin, vitamin B-12, (VITAMIN B-12) 5,000 mcg subl Dissolve under the tongue. fsh/flx/prim/cur/bor /om3,6,9 5 (OMEGA 3-6-9 FATTY ACIDS ORAL) Take by mouth. Ascorbic Acid (VITAMIN C) 1,000 mg tablet Take 1,000 mg by mouth once daily. ALBUTEROL 90 MCG/ACTUATION AEROSOL INHALER as needed topiramate (TOPAMAX) 25 mg tablet Take 1 tablet by mouth daily at bedtime. No current facility-administere d medications on file prior to visit. Social History Tobacco Use Smoking status: Never Smokeless tobacco: Current family history is not on file. GENERAL:No [...] HPI. All systems reviewed and are negative 10/01/24 1024 BP: 151/53 BP Site: Left Arm BP Position: Sitting BP Cuff Size: Regular Adult Pulse: 64 PHYSICAL EXAMINATION: General appearance: well appearing, alert, in no acute distress Neck: Supple Neurological exam: MENTAL STATUS: Alert, oriented to person, place and time and Follows commands CRANIAL NERVES: PERRLA, EOM's intact, Face symmetric, No dysarthria, and Tongue protrudes midline MOTOR: Normal tone MOTOR STRENGTH: Upper and lower extremity 5/5 bilaterally GAIT: Normal-based IMPRESSION: 1. Headache disorder PLAN: Any problems or concerns to call me or primary care physician immediately or go straight to the emergency department Return in about 6 months (around 03/31/2025). ASSESSMENT/PLAN: 1. Headache disorder - ICD9: 784.0, ICD10: R51.9 Isaac Matson MD I spent a total of 20 minutes on the date of the service which included preparing to see the patient, [id number] patient care, completing clinical documentation, obtaining and/or reviewing separately obtained history, performing a medically appropriate examination, and counseling and educating the patient/family/careg iver. SIGNATURE: Isaac Matson MD PATIENT NAME: Dorie Root DATE: October 01, 2024 TIME: 10:38 AM 09/27/2024 PROMIS [facility] Physical Health Summary Physical health: Very good Everyday physical activity, ability: Mostly Fatigue: Mild Pain level: 1 General health: Very good Social activities/roles, ability: Good Physical Health T-Score 50.8 (Very Good) Physical Health Percentile 53 PROMIS [facility] Mental Health Summary Quality of life: Very good Mental health (mood,thinking): Good Social satisfaction: Very good Emotional problems (anxious,depressed): Rarely Mental Health T-Score 50.8 (Very Good) Mental Health Percentile 53 PHQ-9 Score: 1(Minimal Depression) PHQ-9 Self-Harm: Not at all NEURO-QOL Cognitive Function T-Score 41(Mild Dysfunction) PROMIS Physical Function T-Score 35(Moderate Dysfunction) PROMIS Physical Function Percentile 7 Perc (more content not included)... Normal [facility] Pulmonary Function Studieson 09-29-2024 Pulmonary Function Studies Pulmonary Function Studies PULMONARY FUNCTION TEST: 09/21/2024 REFERRING PHYSICIAN: Srinivasan Lezama M.D.; Zack Rooney M.D. REASON FOR TESTING: [age]-year-old female, never smoked. Pulmonary function test is performed to evaluate for asthma. Spirometry shows normal FEV1 at 90% predicted. Forced vital capacity is normal at 104% predicted. FEV1/forced vital capacity ratio is reduced at 66%. After administration of bronchodilator there is no improvement in FEV1 or forced vital capacity. There is improvement in small airway FEF 25-75% by 19%. Lung volume testing shows normal total lung capacity at 92% predicted. Residual volume is normal at 105% predicted. RV/total lung capacity ratio is normal at 51%. The lung diffusion capacity is normal at 90% predicted. IMPRESSION: Spirometry shows borderline obstructive lung disease. There is no significant response to bronchodilator except in small airways. The lung volume testing is normal. The lung diffusion capacity is normal. READ BY: Shawanda Gomez M.D. ca Dictated: 09/26/2024 [id number] Transcribed: 09/28/2024 cc:Armando Padron M.D. [facility] Comment on above: Result Comment: Elec tronically Signed By: Patricia DOS SANTOS, Shawanda X\.br\Date and Time Signed: 09/29/24 09:38 EST Pulmonology Office/Clinic No [email or web address] 08-30-2024 Pulmonology Office/Clinic Note Pulmonology Office/Clinic Note History of Present Illness Here to establish care for underlying asthma. The patient reports that she was diagnosed with asthma many years ago and has been using Breo on a daily basis along with albuterol which she typically requires once or twice daily. She reports that she has intermittent dyspnea especially with exertion and occasional nonproductive cough but denies any wheezing, chest pain or lower extremity edema. She denies significant nasal congestion, postnasal drip or GERD symptoms. She has been on Breo daily and as needed albuterol. She never smoked before. She has no pets at home. She is retired and denies significant exposure to fumes or chemicals in the past. Review of Systems Constitutional: no fever, no chills, no sweats, no weakness Skin: no Jaundice, no rash, no lesions, no petechiae ENT: no ear pain, no sore throat, no congestion, no hoarseness Respiratory: as per HPI Cardiovascular: no chest pain, no palpitations, no edema Gastrointestinal: no nausea, no vomiting, no diarrhea, no GI bleeding Genitourinary: no dysuria, no hematuria, no discharge, no pain Musculoskeletal: no back pain, no trauma Neurologic: no headache, no dizziness, no numbness, no weakness Psychiatric: no sleeping problems, no irritability, no mood swings/depression. Heme/Lymph: no bleeding tendency, no bruising tendency, no petechiae, no swollen nodes Allergy/Immunologic: no seasonal allergies, no food allergies, no recurrent infections, no impaired immunity Additional ROS info: Except as noted in the above Review of Systems and in the History of Present Illness all other systems have been reviewed and are negative or noncontributory. Physical Exam General: Awake, alert, in no acute distress Skin: warm, dry Head: no trauma, normocephalic Neck: Trachea midline, no adenopathy, no tenderness Eye: normal conjunctiva, sclera clear ENMT: TM's clear, oral mucosa moist, no pharyngeal erythema or exudate Cardiovascular: regular rate and rhythm, normal peripheral perfusion Respiratory: Good breath sounds to both lung cao without wheezing or crackles. Gastrointestinal: soft, non distended, no tenderness, no guarding. Back: No tenderness, Normal ROM, Normal alignment. Extremities: no deformity, no trauma Neurological: oriented x 4, LOC appropriate for age, CN II-XII intact, motor strength equal & normal bilaterally, sensation equal & normal bilaterally, speech normal Psychiatric: cooperative, affect appropriate for age, normal judgement, normal psychiatric thoughts. Procedure (11/05/2023 13:[address] Chest w/o Contrast) IMPRESSION: RIGHT LUNG NODULES MEASURING UP TO 6 MM. FOLLOW-UP RECOMMENDED PER [facility]. [1] Assessment/Plan 1. Moderate persistent asthma (J45.40: Moderate persistent asthma, uncomplicated) With no prior PFTs on file and no significant eosinophilia in the past. On optimal treatment with inhaled corticosteroid/long- acting beta agonist and as needed withdrawal but appears to be using her albuterol frequently. Unclear if this is due to a habitual use or real need for it as the patient has not had any exacerbations requiring hospitalization, ER visits or urgent care visits. At this point I will hold off on adjusting any of her medications. I will obtain a full PFT and reevaluate based on the results. Ordered: Pulmonary Function Testing 2. Lung nodule (R91.1: Solitary pulmonary nodule) CT of the chest was reviewed with the patient with a small right lung nodule measuring up to 6 mm. Relatively low risk patient. Options of repeating a CT in 1 year or clinical observation was discussed. I will repeat a CT in 1 year and if stable no further imaging is needed. Ordered: CT Chest w/o Contrast Follow-up With When Contact Information Toribio DOS SANTOS, Zack Reich, PUL, ISSAC Within 3 months [address] [facility] [place] [address]- Additional Instructions: Problem List/Past Medical History Ongoing ASCVD (arteriosclerotic cardiovascular disease) Asthma, mild intermittent BMI 21.0-21.9, adult Body mass index (BMI) of 19.0-19.9 in adult Dizziness H/O: hysterectomy Irritable bowel syndrome with constipation Lung nodule Moderate persistent asthma Non-smoker Osteoporosis Pelvic floor dysfunction Peripheral arterial disease Primary hypertension Shortness of breath Stress Historical Hypokalemia Procedure/Surgical History Colonoscopy (10/01/2021), Dilatation and curettage: routine. Medications Albuterol (Eqv-ProAir HFA) 90 mcg/inh inhalation aerosol, 180 mcg= 2 puff(s), Inhalation, q6hr amoxicillin, 2000 mg, Oral, Once, PRN, Self Directed Benefiber, See Instructions Breo Ellipta 200 mcg-25 mcg/inh inhalation powder, See Instructions Caltrate, Oral, Daily CoQ10 100 mg oral capsule escitalopram 10 mg Tab, 10 mg= 1 tab(s), Oral, Daily, 1 refills Lina-C, Oral, Daily hydrochlorothiazide- lisinopril 12.5 mg-10 mg Ta (more content not included)... Normal [facility] Comment on above: Result Comment: Elec tronically Signed By: Toribio DOS SANTOS, Zack Reich\.br\Date and Time Signed: 08/30/24 11:18 EST Ambulatory Visit Summaryon 1 10-12-2023 Ambulatory Visit Summary Ambulatory Visit Summary DORIE ROOT :1945 Visit Date:08/11/2024 Ambulatory Visit Instructions Your Diagnosis Irritable bowel syndrome with constipation Pelvic floor dysfunction Lower abdominal pain H/O: hysterectomy Your Care Team Attending Physician - Byron DOS SANTOS, Dung Castaneda Primary Care Physician - Srinivasan Lezama MD This Is Your Medications List Contact prescribing physician if questions or concerns albuterol (Albuterol (Eqv-ProAir HFA) 90 mcg/inh inhalation aerosol) amoxicillin ascorbic acid (Lina-C) calcium carbonate (Caltrate) escitalopram (escitalopram 10 mg Tab) fluticasone-vilanter ol (Breo Ellipta 200 mcg-25 mcg/inh inhalation powder) hydrOXYzine (hydrOXYzine hydrochloride 10 mg Tab) hydrochlorothiazide- lisinopril (hydrochlorothiazide -lisinopril 12.5 mg-10 mg Tab) lutein (Lutein) omega-3 polyunsaturated fatty acids ([place]-3 Fish Oil) ubiquinone (CoQ10 100 mg oral capsule) wheat dextrin (Benefiber) Procedures Performed Colonoscopy (10/01/2021), Dilatation and curettage: routine. Discharge Vitals Heart Rate (Peripheral) 61 Respiratory Rate 16 Blood Pressure 157/70 Height 62 in Height 158 cm Weight 110.451 lb Weight 50.1 kg BMI 20.07 What to do next Scheduled Follow-Up Appointments 2024 1:15 PM EDT With: Srinivasan Lezama MD Where: [address] [id number]- Friday 1:00 PM EST With: Where: [address] [address]- Medications What How Much When Instructions Unchanged albuterol (Albuterol (Eqv-ProAir HFA) 90 mcg/ inh inhalation aerosol) 2 Puffs Inhalation Every 6 hours Contact prescribing physician if questions or concerns Unchanged amoxicillin 2,000 Milligram By Mouth Once as needed for Other (see comment) 30 to 60 minutes prior to dental procedure Contact prescribing physician if questions or concerns Unchanged ascorbic acid (Lina-C) By Mouth Every day Contact prescribing physician if questions or concerns Unchanged calcium carbonate (Caltrate) By Mouth Every day Contact prescribing physician if questions or concerns Unchanged escitalopram (escitalopram 10 mg Tab) 1 Tablets By Mouth Every day Contact prescribing physician if questions or concerns Unchanged fluticasone-vilanter ol (Breo Ellipta 200 mcg-25 mcg/ inh inhalation powder) See instructions INHALE 1 PUFF BY MOUTH DAILY Contact prescribing physician if questions or concerns Unchanged hydrochlorothiazide- lisinopril (hydrochlorothiazide -lisinopril 12.5 mg-10 mg Tab) See instructions TAKE 1 TABLET BY MOUTH DAILY Contact prescribing physician if questions or concerns Unchanged hydrOXYzine (hydrOXYzine hydrochloride 10 mg Tab) See instructions TAKE 1 TABLET BY MOUTH 4 TIMES A DAY NEEDED FOR ANXIETY Contact prescribing physician if questions or concerns Unchanged lutein (Lutein) By Mouth Every day Contact prescribing physician if questions or concerns Unchanged omega-3 polyunsaturated fatty acids ([place]-3 Fish Oil) By Mouth 3 times a day Contact prescribing physician if questions or concerns Unchanged ubiquinone (CoQ10 100 mg oral capsule) Contact prescribing physician if questions or concerns Unchanged wheat dextrin (Benefiber) See instructions uses guar gum orally by mouth Contact prescribing physician if questions or concerns Allergies No Known Allergies No Known Medication Allergies Problems Ongoing - Any problem that you are currently receiving treatment for. ASCVD (arteriosclerotic cardiovascular disease) Asthma, mild intermittent BMI 21.0-21.9, adult Body mass index (BMI) of 19.0-19.9 in adult Dizziness H/O: hysterectomy Irritable bowel syndrome with constipation Lung nodule Non-smoker Osteoporosis Pelvic floor dysfunction Peripheral arterial disease Primary hypertension Shortness of breath Stress Historical - Any problem that you are no longer receiving treatment for. Hypokalemia Patient Survey You may receive a survey via text or e-mail asking about your office visit. Please share your experience with us by completing your survey. We appreciate your feedback and thank you for choosing us for your care. Normal [facility] Gastroenterology Office/Clin ic Noteon 08-11-2024 Gastroenterology Office/Clinic Note Gastroenterology Office/Clinic Note Chief Complaint 3 mon follow up HPI Staff Patient is an 79 year old female who presents today for a 3 month follow up. How are bowels moving- improved MiraLax/Senna effective- yes Did she start probiotics- no Denies blood thinners. Denies GLP-1 agonists. Last visit w/Dr. Mathtews: Assessment/Plan 1. Irritable bowel syndrome with constipation (K58.1: Irritable bowel syndrome with constipation) 2. Pelvic floor dysfunction (M62.89: Other specified disorders of muscle) 3. Lower abdominal pain (R10.30: Lower abdominal pain, unspecified) 4. H/O: hysterectomy (Z90.710: Acquired absence of both cervix and uterus) Advised to get squatty potty and massage the colon Advised to use MiraLAX/senna and titrate to have 1-2 bowel movements every day Advised to start probiotics once a day XR abdomen 12/15/23 IMPRESSION: NO ACUTE OR SIGNIFICANT INTRA-ABDOMINAL PROCESS IDENTIFIED, BY PLAIN RADIOGRAPHY. Colonoscopy w/ Dr Yanez 09/07/21 1. Mild diverticulosis scattered throughout the colon 2. Random colon biopsies obtained to rule out microscopic colitis 3. Mild bleeding internal hemorrhoid Pathology Random colon, biopsy: - colonic mucosa with lymphoid aggregate, no other significant pathologic findings. Laboratory Results CBC CMP Basophil Absolute: 0 E9/L (12/15/23) A/G Ratio: 1.8 (08/03/24) Basophil Auto: 0.4 % (12/15/23) AGAP: 13 mEq/L (08/03/24) Eos Absolute: 0.1 E9/L (12/15/23) Albumin Lvl: 4.4 gm/dL (08/03/24) Eos Auto: 1.3 % (12/15/23) Alk Phos: 59 Int._Unit/L (08/03/24) Hct: 44.4 % (12/15/23) ALT: 18 Int._Unit/L (08/03/24) HGB: 14.8 gm/dL (12/15/23) AST: 25 Int._Unit/L (08/03/24) Lymph Absolute: 1.8 E9/L (12/15/23) Bili Total: 0.8 mg/dL (08/03/24) Lymph Auto: 18.9 % (12/15/23) BUN: 19 mg/dL (08/03/24) MCH: 30.3 pg (12/15/23) BUN/Creat Ratio: 24 High (08/03/24) MCHC: 33.3 gm/dL (12/15/23) Calcium Lvl: 9.6 mg/dL (08/03/24) MCV: 90.8 fL (12/15/23) Chloride: 101 mmol/L (08/03/24) [place] Absolute: 0.7 E9/L (12/15/23) CO2: 29 mmol/L (08/03/24) [place] Auto: 7.8 % (12/15/23) Creatinine: 0.8 mg/dL (08/03/24) MPV: 7.9 fL (12/15/23) Globulin: 2.5 gm/dL (08/03/24) Neutro Absolute: 6.7 E9/L (12/15/23) Glucose Lvl: 65 mg/dL (08/03/24) Neutro Auto: 71.6 % (12/15/23) Potassium Lvl: 3.8 mmol/L (08/03/24) Platelet: 292 E9/L (12/15/23) Sodium Lvl: 139 mmol/L (08/03/24) RBC: 4.9 E12/L (12/15/23) Total Protein: 6.9 gm/dL (08/03/24) RDW: 13.9 % (12/15/23) WBC: 9.3 E9/L (12/15/23) History of Present Illness I have reviewed HPI staff note, most recent labs and imaging, I agree with the above documentation with the following additions/exceptions : Pt is doing well moving bowel regularly with laxities Review of Systems PHQ Score Initial Depression Screen Score: 0 SCORE All systems reviewed, negative except as mentioned above Physical Exam Vitals & Measurements HR: 61(Peripheral) RR: 16 BP: 157/70 HT: 62 in HT: 158 cm WT: 50.1 kg WT: 110.451 lb BMI: 20.07 General: alert, no acute distress HEENT: atraumatic normocephalic Extremities: no deformity, no trauma Assessment/Plan 1. Irritable bowel syndrome with constipation (K58.1: Irritable bowel syndrome with constipation) 2. Pelvic floor dysfunction (M62.89: Other specified disorders of muscle) 3. Lower abdominal pain (R10.30: Lower abdominal pain, unspecified) 4. H/O: hysterectomy (Z90.710: Acquired absence of both cervix and uterus) Continue senna and MiraLAX from [id number] and titrate to have 1-2 bowel moods every day Return to the office as needed Follow-up No qualifying data available Problem List/Past Medical History Ongoing ASCVD (arteriosclerotic cardiovascular disease) Asthma, mild intermittent BMI 21.0-21.9, adult Body mass index (BMI) of 19.0-19.9 in adult Dizziness H/O: hysterectomy Irritable bowel syndrome with constipation Lung nodule Non-smoker Osteoporosis Pelvic floor dysfunction Peripheral arterial disease Primary hypertension Shortness of breath Stress Historical Hypokalemia Procedure/Surgical History Colonoscopy (10/01/2021), Dilatation and curettage: routine. Medications Albuterol (Eqv-ProAir HFA) 90 mcg/inh inhalation aerosol, 180 mcg= 2 puff(s), Inhalation, q6hr amoxicillin, 2000 mg, Oral, Once, PRN, Self Directed Benefiber, See Instructions Breo Ellipta 200 mcg-25 mcg/inh inhalation powder, See Instructions Caltrate, Oral, Daily CoQ10 100 mg oral capsule escitalopram 10 mg Tab, 10 mg= 1 tab(s), Oral, Daily, 1 refills Lina-C, Oral, Daily hydrochlorothiazide- lisinopril 12.5 mg-10 mg Tab, See Instructions hydrOXYzine hydrochloride 10 mg Tab, See Instructions Lutein, Oral, Daily [place]-3 Fish Oil, Oral, TID Allergies No Known Allergies No Known Medication Allergies Social History Alcohol Never, 07/22/2024 Substance Abuse Never, 07/22/2024 Tobacco Never (less than 100 (more content not included)... Normal [facility] Comment on above: Result Comment: Elec tronically Signed By: Byron DOS SANTOS, Dung Castaneda\.br\Date and Time Signed: 08/11/24 14:27 EST CHEMISTRYOrdered By: Joseluis Coronel on 08-03-2024 Albumin DL <= 20 mg/L (U) [Mass/Vol] mg/dL Normal 0.0 - 1.9 mg/dL Remisol Chem Albumin/Creatinine DL <= 20 mg/L (U) [Mass ratio] NOT CALCULATED Invalid Interpretation Code 0.0 - 30.0 Remisol [facility] Comment on above: Interpretive Data: 3 0-300 mg/g Cr indicates an increased risk for diabetic nephropathy. >300 mg/g Cr is consistent with clinical nephropathy. U Creatinine 26.7 mg/dL Invalid Interpretation Code Remisol Chem CHEMISTRYOrdered By: SYSTEM SYSTEM on 08-03-2024 Albumin [Mass/Vol] 4.4 g/dL Normal 3.3 - 5.0 gm/dL R emisol Chem Albumin/Globulin [Mass ratio] 1.8 {ratio} Normal 1.1 - 2.2 Remisol Chem ALP [Catalytic activity/Vol] 59 [iU]/d Normal 21 - 98 Int._Unit/L Remisol Chem ALT No additional P-5'-P [Catalytic activity/Vol] 18 [iU]/d Normal 6 - 46 Int._Unit/L Remisol Chem Anion gap [Moles/Vol] 13 mmol/L Normal 6 - 16 mEq/L Remisol Chem AST [Catalytic activity/Vol] 25 [iU]/d Normal 5 - 43 Int._Unit/L Remisol Chem Bilirubin [Mass/Vol] 0.8 mg/dL Normal 0.0 - 1.1 mg/dL Remisol Chem Calcium [Mass/Vol] 9.6 mg/dL Normal 8.9 - 11.1 mg/dL Remisol Chem Chloride [Moles/Vol] 101 mmol/L Normal 101 - 111 mmol/ L Remisol Chem Cholesterol [Mass/Vol] 219 mg/dL High 120 - 200 mg/dL Remisol Chem Cholesterol in HDL [Mass/Vol] 75 mg/dL Invalid Interpretation Code Remisol Chem Comment on above: Result Comment: '>= 60 LOW RISK' '<= 40 HIGH RISK' Cholesterol in LDL [Mass/Vol] 142 mg/dL High <=129mg/dL Remisol Chem Cholesterol in VLDL [Mass/Vol] 19 mg/dL Normal 7 - 40 mg/dL Remisol Chem CO2 [Moles/Vol] 29 mmol/L Normal 21 - 31 mmol/L Remis ol Chem Creatinine [Mass/Vol] 0.8 mg/dL Normal 0.5 - 1.3 mg/dL Remisol Chem eGFR 74 mL/min/1.73 m2 Normal >=59mL/min /1.73 m2 Remisol Chem Globulin (S) [Mass/Vol] 2.5 g/dL Normal 1.4 - 4.0 gm/dL Remisol Chem Glucose [Mass/Vol] 65 mg/dL Normal 55 - 199 mg/dL Re misol Chem Potassium [Moles/Vol] 3.8 mmol/L Normal 3.5 - 5.3 mmol/L Remisol Chem Protein [Mass/Vol] 6.9 g/dL Normal 6.0 - 7.8 gm/dL R emisol Chem Sodium [Moles/Vol] 139 mmol/L Normal 135 - 145 mmol/L Remisol Chem Triglyceride [Mass/Vol] 96 mg/dL Normal <=149mg/dL Remisol Chem Urea nitrogen [Mass/Vol] 19 mg/dL Normal 5 - 21 mg/dL Remisol Chem Urea nitrogen/Creatinine [Mass ratio] 24 mg/mg High 10 - 20 Remisol Chem CMPon 08-03-2024 Albumin [Mass/Vol] 4.4 g/dL Normal 3.3-5.0 [facility] Comment on above: Performed By: #### 2 [id number] #### [facility] [address] [place] [address] Albumin/Globulin (S) [Mass conc ratio] 1.8 Normal 1.1-2.2 [facility] Comment on above: Performed By: #### 2 [id number] #### [facility] [address] [place] [address] ALP [Catalytic activity/Vol] 59 Int._Unit/L Normal 21-98 [facility] Comment on above: Performed By: #### 2 [id number] #### [facility] [address] [place] [address] ALT No additional P-5'-P [Catalytic activity/Vol] 18 Int._Unit/L Normal 6-46 [facility] Comment on above: Performed By: #### 2 [id number] #### [facility] [address] [place] [address] Anion gap [Moles/Vol] 13 mmol/L Normal 6-16 [facility] Comment on above: Performed By: #### 2 [id number] #### [facility] [address] [place] [address] AST [Catalytic activity/Vol] 25 Int._Unit/L Normal 5-43 [facility] Comment on above: Performed By: #### 2 [id number] #### [facility] [address] [place] [address] Bilirubin [Mass/Vol] 0.8 mg/dL Normal 0.0-1.1 [facility] Comment on above: Performed By: #### 2 [id number] #### [facility] [address] [place] [address] Calcium [Mass/Vol] 9.6 mg/dL Normal 8.9-11.1 [facility] Comment on above: Performed By: #### 2 [id number] #### [facility] [address] [place] [address] Chloride [Moles/Vol] 101 mmol/L Normal 101-111 [facility] Comment on above: Performed By: #### 2 [id number] #### [facility] [address] [place] [address] CO2 [Moles/Vol] 29 mmol/L Normal 21-31 [facility] Comment on above: Performed By: #### 2 [id number] #### [facility] [address] [place] [address] Creatinine [Mass/Vol] 0.8 mg/dL Normal 0.5-1.3 [facility] Comment on above: Performed By: #### 2 [id number] #### [facility] [address] [place] [address] Globulin (S) [Mass/Vol] 2.5 g/dL Normal 1.4-4.0 [facility] Comment on above: Performed By: #### 2 [id number] #### [facility] [address] [place] [address] Glucose [Mass/Vol] 65 mg/dL Normal 55-199 [facility] Comment on above: Performed By: #### 2 [id number] #### [facility] [address] [place] [address] Potassium [Moles/Vol] 3.8 mmol/L Normal 3.5-5.3 [facility] Comment on above: Performed By: #### 2 [id number] #### [facility] [address] [place] [address] Protein [Mass/Vol] 6.9 g/dL Normal 6.0-7.8 [facility] Comment on above: Performed By: #### 2 [id number] #### [facility] [address] [place] [address] Sodium [Moles/Vol] 139 mmol/L Normal 135-145 [facility] Comment on above: Performed By: #### 2 [id number] #### [facility] [address] [place] [address] Urea nitrogen [Mass/Vol] 19 mg/dL Normal 5-21 [facility] Comment on above: Performed By: #### 2 [id number] #### [facility] [address] [place] [address] Urea nitrogen/Creatinine [Mass ratio] 24 No Units High 10-20 [facility] Comment on above: Performed By: #### 2 [id number] #### [facility] [address] [place] [address] Lipid Panelon 08-03-2024 Cholesterol [Mass/Vol] 219 mg/dL High 120-200 [facility] Comment on above: Performed By: #### 2 [id number] #### [facility] [address] [place] [address] Cholesterol in HDL [Mass/Vol] 75 mg/dL Invalid Interpretation Code [facility] Comment on above: Result Comment: '>= 60 LOW RISK' '<= 40 HIGH RISK' Performed By: #### 2 [id number] #### [facility] [address] [place] [address] Cholesterol in LDL [Mass/Vol] 142 mg/dL High <=129 [facility] Comment on above: Performed By: #### 2 [id number] #### [facility] [address] [place] [address] Cholesterol in VLDL [Mass/Vol] 19 mg/dL Normal 7-40 [facility] Comment on above: Performed By: #### 2 [id number] #### [facility] [address] [place] [address] Triglyceride [Mass/Vol] 96 mg/dL Normal <=149 [facility] Comment on above: Performed By: #### 2 [id number] #### [facility] [address] [place] [address] U MA/Cr Ratioon 08-03-2024 Albumin DL <= 20 mg/L (U) [Mass/Vol] mg/dL Normal 0.0-1.9 [facility] Comment on above: Performed By: #### 1 [id number] #### [facility] [address] [place] [address] Albumin/Creatinine DL <= 20 mg/L (U) [Mass ratio] NOT CALCULATED Invalid Interpretation Code .0-30.0 [facility] Comment on above: Result Comment: 30-3 00 mg/g Cr indicates an increased risk for diabetic nephropathy. >300 mg/g Cr is consistent with clinical nephropathy. Performed By: #### 1 [id number] #### [facility] [address] [place] [address] U Creatinine 26.7 mg/dL Invalid Interpretation Code [facility] Comment on above: Performed By: #### 1 [id number] #### [facility] [address] [place] [address] eGFRon 08-03-2024 eGFR 74 mL/min/1.73 m2 Normal >=59 [facility] Comment on above: Performed By: #### 1 [id number] #### [facility] [address] [place] [address] Ambulatory Visit Summaryon 1 09-25-2023 Ambulatory Visit Summary Ambulatory Visit Summary DORIE ROOT :1945 Visit Date:07/22/2024 Ambulatory Visit Instructions Your Diagnosis Encounter for subsequent annual wellness visit (AWV) in Medicare patient Peripheral arterial disease Primary hypertension Screening for ischemic heart disease Breast cancer screening by mammogram Tests Performed MA Mamm Screen w/CAD if perf and 3D Chivo -- Results Pending -- Please visit your patient portal for your results or contact your primary care physician. Your Care Team Attending Physician - Srinivasan Lezama MD Primary Care Physician - Srinivasan Lezama MD This Is Your Medications List albuterol (Albuterol (Eqv-ProAir HFA) 90 mcg/inh inhalation aerosol) amoxicillin ascorbic acid (Lina-C) calcium carbonate (Caltrate) escitalopram (escitalopram 10 mg Tab) fluticasone-vilanter ol (Breo Ellipta 200 mcg-25 mcg/inh inhalation powder) hydrOXYzine (hydrOXYzine hydrochloride 10 mg Tab) hydrochlorothiazide- lisinopril (hydrochlorothiazide -lisinopril 12.5 mg-10 mg Tab) lutein (Lutein) omega-3 polyunsaturated fatty acids ([place]-3 Fish Oil) ubiquinone (CoQ10 100 mg oral capsule) wheat dextrin (Benefiber) Procedures Performed Colonoscopy (10/01/2021), Dilatation and curettage: routine. Discharge Vitals Temperature (Temporal Artery) 37.2 ???C Heart Rate (Peripheral) 80 Respiratory Rate 16 Blood Pressure 136/72 Height 158 cm Height 62 in Weight 48.6 kg Weight 107.145 lb BMI 19.47 What to do next Scheduled Follow-Up Appointments Friday 9:20 AM EST With: Where: [address] [address]- Friday 2:15 PM EST With: Byron DOS SANTOS, Dung Castaneda Where: [facility] [address] [place], [place] [address] [place] [address]- 2024 1:15 PM EDT With: Lise DOS SANTOS, Srinivasan Milligan Where: [address] [address]- Friday 1:00 PM EST With: Where: [address] [address]- You Need to Complete the Following Comprehensive Metabolic Panel, Blood, Routine collect, 07/22/24, Order for future visit, Lab Collect, Primary hypertension, Not Required, Print Label By Order Location Lipid Panel, Blood, Routine collect, 07/22/24, Order for future visit, Lab Collect, Screening for ischemic heart disease, Required & Missing, Print Label By Order Location Urine Microalbumin/Creatin ine Ratio, Urine, Routine collect, 07/22/24, Order for future visit, Nurse collect, Primary hypertension, Not Required, Print Label By Order Location CT Chest w/o Contrast, 07/22/24, Routine, Order for future visit, Transport Mode: Ambulatory, Reason: Lung nodule, No, No, Primary hypertension Stress Asthma, mild intermittent Lung nodule Body mass index (BMI) of 19 or less in adult Nonsmoker, pp_set_radiology_su. .. Someone Will Contact You Regarding These Appointments [facility] External Ambulatory Referral, Dermatology, 07/22/24 14:51:00 EST, Skin change Medications What How Much When Instructions Unchanged albuterol (Albuterol (Eqv-ProAir HFA) 90 mcg/ inh inhalation aerosol) 2 Puffs Inhalation Every 6 hours Unchanged amoxicillin 2,000 Milligram By Mouth Once as needed for Other (see comment) 30 to 60 minutes prior to dental procedure Unchanged ascorbic acid (Lina-C) By Mouth Every day Unchanged calcium carbonate (Caltrate) By Mouth Every day Unchanged escitalopram (escitalopram 10 mg Tab) 1 Tablets By Mouth Every day Unchanged fluticasone-vilanter ol (Breo Ellipta 200 mcg-25 mcg/ inh inhalation powder) See instructions INHALE 1 PUFF BY MOUTH DAILY Unchanged hydrochlorothiazide- lisinopril (hydrochlorothiazide -lisinopril 12.5 mg-10 mg Tab) See instructions TAKE 1 TABLET BY MOUTH DAILY Unchanged hydrOXYzine (hydrOXYzine hydrochloride 10 mg Tab) See instructions TAKE 1 TABLET BY MOUTH 4 TIMES A DAY NEEDED FOR ANXIETY Unchanged lutein (Lutein) By Mouth Every day Unchanged omega-3 polyunsaturated fatty acids (Rutledge-3 Fish Oil) By Mouth 3 times a day Unchanged ubiquinone (CoQ10 100 mg oral capsule) Unchanged wheat dextrin (Benefiber) See instructions uses guar gum orally by mouth Allergies No Known Allergies No Known Medication Allergies Problems Ongoing - Any problem that you are currently receiving treatment for. ASCVD (arteriosclerotic cardiovascular disease) Asthma, mild intermittent BMI 21.0-21.9, adult Body mass index (BMI) of 19.0-19.9 in adult Dizziness H/O: hysterectomy Irritable bowel syndrome with constipation Lung nodule Non-smoker Osteoporosis Pelvic floor dysfunction Peripheral arterial disease Primary hypertension Shortness of breath Stress Historical - Any (more content not included)... Normal [facility] Family Medicine Office/Clini c Noteon 07-26-2024 Family Medicine Office/Clinic Note Family Medicine Office/Clinic Note Chief Complaint Subsequent Medicare Wellness History of Present Illness Covid-19, MERS, Ebola Screen *Contact With Person With Highly Contagious Disease Like Ebola/MERS/COVID-19 AND Have One or More of the Symptoms Below : No *Travel to a Country With Wide-Spread Ebola/MERS/COVID-19 in the Past 21 Days AND Have One or More of the Symptoms Below : No Patient Reported Covid-19 Testing : No *Verify Droplet, Contact Precautions for Ebola (Reference for CDC) : N/A *Verify Airborne, Droplet Precautions for MERS/COVID-19 : N/A Josee Metz Isaura - 07/22/2024 14:48 EST Medicare/Medicaid Summary Chief Complaint : Subsequent Medicare Wellness Patient Counseled : Nutrition, Physical activity Height/Length Measured : 158 cm(Converted to: 5 ft 2 in, 62.20 in) Weight Measured : 48.6 kg(Converted to: 107 lb 2 Ounces, 107.145 lb) Body Mass Index Measured : 19.47 kg/m2 Height in Inches : 62 in Weight in Pounds : 107.145 lb Systolic Blood Pressure : 136 mmHg Diastolic Blood Pressure : 72 mmHg Blood Pressure Position : Sitting O2 Sat Resting/Exertion Alpha : Resting Peripheral Pulse Rate : 80 bpm Respiratory Rate : 16 br/min SpO2 : 98 % Temperature Temporal Artery : 37.2 DegC(Converted to: 99.0 DegF) Pain Present : No actual or suspected pain Josee Metz Isaura - 07/22/2024 14:48 EST Patient Preferred Method of Communication Phone Call Hearing and Vision Screening FT FT Whisper Test Comments : wears hearing aides Vision Screen Comments : wears corrective lens. [facility]. Goes yearly. Josee Metz Isaura - 07/22/2024 14:48 EST Advance Directive FT Advance Directive : Yes Type of Advance Directive : Living will, Medical durable power of domestic travel consultant Location of Advance Directive : Scanned into EMR Organ Donation Consent : No Josee Metz Isaura - 07/22/2024 14:48 EST Procedures / Surgeries FT - Procedure History (As Of: 07/22/2024 15:04:43 EST) Procedure Dt/Tm: 10/01/2021 ; Anesthesia Minutes: 0 ; Procedure Name: Colonoscopy ; Procedure Minutes: 0 ; Comments: 11/20/2022 15:32 Christa Anderson LPN [facility] ; Last Reviewed Dt/Tm: 07/22/2024 14:53:29 EST Anesthesia Minutes: 0 ; Procedure Name: Dilatation and curettage: routine ; Procedure Minutes: 0 ; Comments: 11/20/2022 15:31 ARYANT Luisa Schwab LPN [facility] pt states this was years ago ; Last Reviewed Dt/Tm: 07/22/2024 14:53:29 EST Family History Family History (As Of: 07/22/2024 15:04:44 EST) Negative History Medicare/Medicaid Social History FT Social History (As Of: 07/22/2024 15:04:44 EST) Alcohol: Never Comments: 07/22/2024 14:56 - Josee Metz: denies use. 07/23/2023 11:11 - Abel Dominguez: denies (Last Updated: 07/22/2024 14:56:04 EST by Josee Metz) Tobacco: Never (less than 100 in lifetime) Tobacco Use:. Never Smokeless Tobacco Use:. Comments: 07/22/2024 14:56 - Josee Metz: denies use. 07/23/2023 11:11 - Abel Dominguez: denies (Last Updated: 07/22/2024 14:56:20 EST by Josee Metz) Never (less than 100 in lifetime) Tobacco Use:. (Last Updated: 02/04/2024 13:02:12 EDT by Eladia Estrada) Never (less than 100 in lifetime) Tobacco Use:. (Last Updated: 02/18/2024 14:11:34 EDT by Eladia Estrada) Never (less than 100 in lifetime) Tobacco Use:. (Last Updated: 07/19/2024 04:28:58 UTC by Tara Bledsoe) Substance Abuse: Never Comments: 07/22/2024 14:56 - Josee Metz: denies use. (Last Updated: 07/22/2024 14:56:33 EST by Josee Metz) Health Risk Assessment FT HRA little interest or pleasure? : No HRA down, depressed, or hopeless? : Yes Hazards in your house? : No Fall Risk Past Year : No Worried About Falling : No Use a Cane or Walker? : No Someone Helps You in the Morning : No Fallen or felt dizzy standing up? : Yes Assistance with personal care? : No Trouble taking meds correctly? : No HRA Pain Present : No Able to walk without help? : No Ability to shop w/out help : No Prepare your own meals? : Yes Housework without help? : Yes Handle money without help : Yes Track own medications without help? : Yes Overall mood for past four weeks : Good and bad parts about equal General health rating : Fair Someone avail. to help if needed? : Yes, a little Phys. & emotional health limit social act? : Slightly Josee Metz - 07/22/2024 14:48 EST Misc Health Risks Grid Sexual problems : Seldom Trouble eating well : Seldom Teeth or denture problems : Seldom Problems using the telephone : Never Josee Metz - 07/22/2024 14:48 EST Confident you control health problems : Somewhat confident Difficulties driving your car? : Sometimes (Comment: drives short distances [Josee Metz - 07/22/2024 14:48 EST] ) Seatbelts : I always fasten my seat belt Josee Metz - 07/22/2024 14:48 EST Depression Screening Little Interest, Pleasure in Activities (ref) : Not at all Feeling Down, Depressed, Hopeless : Several days Initial Depression Scree (more content not included)... Normal [facility] Comment on above: Result Comment: Elec tronically Signed By: Srinivasan Lezama MD\.br\Date and Time Signed: 07/26/24 14:58 EST\.br\Electronically Co-Signed By: Josee Metz\.br\Date and Time Co-Signed: 07/22/24 15:54 EST Ambulatory Visit Summaryon 1 09-21-2023 Ambulatory Visit Summary Ambulatory Visit Summary DORIE ROOT :1945 Visit Date:07/22/2024 Ambulatory Visit Instructions Your Diagnosis Primary hypertension Stress Asthma, mild intermittent Lung nodule Body mass index (BMI) of 19 or less in adult Nonsmoker Shortness of breath Your Care Team Attending Physician - Srinivasan Lezama MD Primary Care Physician - Srinivasan Lezama MD This Is Your Medications List albuterol (Albuterol (Eqv-ProAir HFA) 90 mcg/inh inhalation aerosol) amoxicillin ascorbic acid (Lina-C) calcium carbonate (Caltrate) escitalopram (escitalopram 5 mg oral tablet) fluticasone-vilanter ol (Breo Ellipta 200 mcg-25 mcg/inh inhalation powder) hydrOXYzine (hydrOXYzine hydrochloride 10 mg Tab) hydrochlorothiazide- lisinopril (hydrochlorothiazide -lisinopril 12.5 mg-10 mg Tab) lutein (Lutein) omega-3 polyunsaturated fatty acids (Rutledge-3 Fish Oil) ubiquinone (CoQ10 100 mg oral capsule) wheat dextrin (Benefiber) Procedures Performed Colonoscopy (10/01/2021), Dilatation and curettage: routine. Discharge Vitals Temperature (Temporal Artery) 37.2 ???C Heart Rate (Peripheral) 80 Respiratory Rate 16 Blood Pressure 136/72 Height 158 cm Height 62 in Weight 48.6 kg Weight 107.145 lb BMI 19.47 What to do next Scheduled Follow-Up Appointments Friday. 2023 2:15 PM EST With: Byron DOS SANTOS, Dung Castaneda Where: [facility] [address] [place], [place] [address] [place] [address]- 2024 1:15 PM EDT With: Lise DOS SANTOS, Srinivasan Milligan Where: [facility] [address] [address]- You Need to Complete the Following CT Chest w/o Contrast, 07/22/24, Routine, Order for future visit, Transport Mode: Ambulatory, Reason: Lung nodule, No, No, Primary hypertension Stress Asthma, mild intermittent Lung nodule Body mass index (BMI) of 19 or less in adult Nonsmoker, pp_set_radiology_su. .. Medications What How Much When Instructions Unchanged albuterol (Albuterol (Eqv-ProAir HFA) 90 mcg/ inh inhalation aerosol) 2 Puffs Inhalation Every 6 hours Unchanged amoxicillin 2,000 Milligram By Mouth Once as needed for Other (see comment) 30 to 60 minutes prior to dental procedure Unchanged ascorbic acid (Lina-C) By Mouth Every day Unchanged calcium carbonate (Caltrate) By Mouth Every day Unchanged escitalopram (escitalopram 5 mg oral tablet) 1 Tablets By Mouth Every day Unchanged fluticasone-vilanter ol (Breo Ellipta 200 mcg-25 mcg/ inh inhalation powder) See instructions INHALE 1 PUFF BY MOUTH DAILY Unchanged hydrochlorothiazide- lisinopril (hydrochlorothiazide -lisinopril 12.5 mg-10 mg Tab) See instructions TAKE 1 TABLET BY MOUTH DAILY Unchanged hydrOXYzine (hydrOXYzine hydrochloride 10 mg Tab) See instructions TAKE 1 TABLET BY MOUTH 4 TIMES A DAY NEEDED FOR ANXIETY Unchanged lutein (Lutein) By Mouth Every day Unchanged omega-3 polyunsaturated fatty acids (Rutledge-3 Fish Oil) By Mouth 3 times a day Unchanged ubiquinone (CoQ10 100 mg oral capsule) Unchanged wheat dextrin (Benefiber) See instructions uses guar gum orally by mouth Allergies No Known Allergies No Known Medication Allergies Problems Ongoing - Any problem that you are currently receiving treatment for. ASCVD (arteriosclerotic cardiovascular disease) Asthma, mild intermittent BMI 21.0-21.9, adult Dizziness H/O: hysterectomy Irritable bowel syndrome with constipation Lung nodule Non-smoker Osteoporosis Pelvic floor dysfunction Peripheral arterial disease Primary hypertension Shortness of breath Stress Historical - Any problem that you are no longer receiving treatment for. Hypokalemia Patient Survey You may receive a survey via text or e-mail asking about your office visit. Please share your experience with us by completing your survey. We appreciate your feedback and thank you for choosing us for your care. Nataliia [facility] Family Medicine Office/Clini c Noteon 07-22-2024 Family Medicine Office/Clinic Note Family Medicine Office/Clinic Note Chief Complaint The patient reports increased shortness of breath and concerns regarding anxiety levels. HPI Staff Dorie is an 79 year old female presenting for 3 month follow up HTN, Stress Patient is here for follow up on hypertension. How often are you checking your blood pressure? Doesnt check BP at home What are your average readings? N/A, Not checking at home Yearly BMP: 12/15/23 RONI:13 questions/concerns: none History of Present Illness The patient is an 79-year-old female presenting with complaints of increased shortness of breath and anxiety concerns. Over the past year, she has experienced ongoing fatigue and increased difficulty with ambulation, which has worsened in severity over time. She denies any recent chest pain but has noted that her shortness of breath has been more pronounced during certain activities. She has a history of mild intermittent asthma and has been using albuterol, though the effectiveness of this treatment has recently become questionable. She does not have a history of smoking, which makes the recent exacerbation of breathlessness perplexing. The patient's BMI is low, with unintentional weight loss observed, further contributing to her current state of health. Additionally, she has a known solitary pulmonary nodule, stress, and essential hypertension, and she has previously been prescribed Lexapro for anxiety management by another physician. The patient is considering whether an adjustment in her anxiety medication may be warranted as her current prescriptions may not suffice. The management of these overlapping symptoms requires careful consideration of her mental health and physical capacity. Review of Systems - Constitutional: Reports fatigue - Respiratory: Reports increased shortness of breath - Psychological: Reports anxiety Physical Exam Vitals & Measurements T: 37.2 ???C(Temporal Artery) HR: 80(Peripheral) RR: 16 BP: 136/72 SpO2: 98% HT: 62 in HT: 158 cm WT: 48.6 kg WT: 107.145 lb BMI: 19.47 General: alert, no acute distress ENMT: oral mucosa moist Cardiovascular: Regular rate and rhythm, normal peripheral perfusion Respiratory: Lungs clear to auscultation, respirations non labored, reports shortness of breath more than normal Extremities: no deformity, no trauma, reports of possible ruptured blood vessels on arms Neurological: oriented x 4, level of consciousness appropriate for age, CN II-XII intact, motor strength equal & normal bilaterally, speech normal Abdomen: Soft, Non-tender, Non-distended, + Bowel sounds Assessment/Plan 1. Primary hypertension (I10: Essential (primary) hypertension) Blood pressure monitored and currently well-controlled. Reinforce adherence to antihypertensive regimen, noting good current control. Ordered: Body Mass Index (BMI) documented 3008F CT Chest w/o Contrast Current tobacco non-user 1036F Depression Screening Negative 3352F Influenza immunization administered or previously received 4274F Most recent diastolic blood pressure <80 mm Hg 3078F Patient screen for fall risk: no falls in last year or 1 fall with no injury in last year 1101F Systolic BP 130-139 mm Hg (Most Recent) 3075F 2. Stress (F43.9: Reaction to severe stress, unspecified) Discussed potential adjustment of Lexapro from 5 mg to 10 mg to address anxiety symptoms with potential to consult psychiatry if symptoms persist. Ordered: Body Mass Index (BMI) documented 3008F CT Chest w/o Contrast Current tobacco non-user 1036F Depression Screening Negative 3352F Influenza immunization administered or previously received 4274F Most recent diastolic blood pressure <80 mm Hg 3078F Patient screen for fall risk: no falls in last year or 1 fall with no injury in last year 1101F Systolic BP 130-139 mm Hg (Most Recent) 3075F 3. Asthma, mild intermittent (J45.20: Mild intermittent asthma, uncomplicated) The patient is currently using albuterol, but effectiveness is in question. Patient is also on a controller inhaler. Will send to pul. Ordered: Body Mass Index (BMI) documented 3008F CT Chest w/o Contrast Current tobacco non-user 1036F Depression Screening Negative 3352F Influenza immunization administered or previously received 4274F Most recent diastolic blood pressure <80 mm Hg 3078F Patient screen for fall risk: no falls in last year or 1 fall with no injury in last year 1101F Systolic BP 130-139 mm Hg (Most Recent) 3075F 4. Lung nodule (R91.1: Solitary pulmonary nodule) CT scan ordered. Ordered: Body Mass Index (BMI) documented 3008F CT Chest w/o Contrast Current tobacco non-user 1036F Depression Screening Negative 3352F Influenza immunization administered or previously received 4274F Most recent diastolic blood pressure <80 mm Hg 3078F Patient screen for fall risk: no falls in last year or 1 fall with no injury in last year 1101F Systolic BP 130-139 mm Hg (Most Recent) 3075F 5. Body mass index (B (more content not included)... Normal [facility] Comment on above: Result Comment: Elec tronically Signed By: Srinivasan Lezama MD\.br\Date and Time Signed: 07/22/24 14:50 EST Pre-Visit Planningon 024 Pre-Visit Planning Pre-Visit Planning - From: Rene HUNTLEY, Blanca To: Srinivasan Lezama MD; Sent: 07/16/2024 13:34:47 EST Subject: Pre-Visit Planning Due Date/Time: 07/16/2024 13:34:00 EST Caller Name: DORIE ROOT; Caller Number: Deborah , M Hi Dr. Lezama, *Based on your response below, can you please update the chronic problem list and address during this visit if appropriate?* During a pre-visit planning chart review, I noted the following documentation in the medical record: Current Problem List: Asthma (unspecified asthma uncomplicated) 10/21/2023 office note- 4. Asthma (J45.909: Unspecified asthma, uncomplicated) - Will refill albuterol. - Doing well. Based on your medical judgment, can you please futher clarify the patient's asthma? Asthma, mild persistent ??? Asthma, mild intermittent ??? Asthma, moderate persistent ??? Asthma, severe persistent ??? Unable to determine ??? Other In addition, please specify: ??? With status asthmaticus ??? Without status asthmaticus ??? With acute exacerbation ??? Without acute exacerbation ??? Unable to determine ??? Other -Other (please specify): I can update the problem list with your specified response if you would like. In responding to this request, please exercise your independent professional judgment. The fact that a question is asked does not imply that any particular answer is desired or expected. If you have any questions, please feel free to contact me at extension [phone]. Thank you! Blanca López, BSN, RN, CCM, CCDS, CCDS-O CDI [employer] [address] [address] P: [phone] F: [phone] [email or web address] Asthma Type Definition Lung Function Mild intermittent Symptoms ? 2 times/week; asymptomatic/normal PEF between exacerbations; exacerbation of varying intensity are brief (a few hours to a few days) FEV1 or PEF ?80% predicted; PEF variability <20% Mild persistent Symptoms >2 times/week, but <1 time/day; exacerbation may affect activity FEV1 or PEF ?80% predicted; PEF variability 20-30% Moderate persistent Daily symptoms, daily use of inhaled short-acting beta-2 agonist, exacerbation of affects activity, exacerbation ?2 times/week ?1 day(s) FEV1 or PEF 60-80% predicted; PEF variability >30% Severe persistent Continual symptoms, limited physical activity, frequent exacerbations FEV1 or PEF ?60% predicted; PEF variability >30% Based on the National Heart, Lung and Blood institute (NHLBI) asthma severity classification scale. - From: Lise DOS SANTOS, Srinivasan Milligan To: Rene HUNTLEY, Blanca; Sent: 07/19/2024 07:49:59 EST Subject: RE: Pre-Visit Planning Caller Name: DORIE ROOT; Caller Number: Deborah , Flynn Asthma, mild intermittent Normal [facility] CNOVon 07-05-2024 CNOV Office Visit (CARDAV) DORIE ROOT ([id number]) 1945 F Date Time Provider Department 07/05/24 9:00 AM RACHAEL CHANEY During your visit today, we recorded the following information about you: Pulse Blood pressure Weight Height 62/minute 132/60 49.5 kg 1.575 m Rachael Chaney MD 07/05/2024 10:20 AM Signed [facility] Stepan Sharif Department of Cardiovascular Medicine SECTION OF REGIONAL CARDIOLOGY OUTPATIENT VISIT DATE July 05, 2024 OUTPATIENT VISIT TYPE ESTABLISHED HISTORY OF PRESENT ILLNESS: Dorie Root is a (an) 79 year old year old female who is here today for follow-up. She was placed on Amlodipine and her for follow up BP check. Denies interval symptoms changes Presents with sister. is in hospital with a stroke Last OV 06/21/24 Dorie Root is a (an) 79 year old year old female who is here today for follow-up. Since last visit denies chest pain, SOB, palpitations or lightheadedness. She reports today that she has been taking Lisinopril-HCTZ 10-12.5 mg daily for years (not Lisinopril 10 mg daily) Dorie Root is a 77 year old female from [place], [place] here today self referral. Has h/o [...] Social History Tobacco Use Smoking status: Never Smokeless tobacco: Current ALLERGIES: Patient has no known allergies. CURRENT MEDICATIONS: Current Outpatient Medications Medication Sig memantine (NAMENDA) 5 mg tablet Take 1 tablet by mouth two times a day. amLODIPine (NORVASC) 5 mg tablet Take 1 tablet by mouth once daily. lisinopril-hydroCHLO ROthiazide (ZESTORETIC) 10-12.5 mg per tablet Take 1 tablet by mouth once daily. topiramate (TOPAMAX) 25 mg tablet Take 1 tablet by mouth daily at bedtime. escitalopram oxalate (LEXAPRO) 5 mg tablet Take 1 tablet by mouth daily at bedtime. BENEFIBER, GUAR GUM, ORAL Take by mouth. Coenzyme S23-Rmgfqoa E 100-5 mg-unit cap 2 gels Orally LUTEIN-ZEAXANTHIN ORAL Take by mouth. cyanocobalamin, vitamin B-12, (VITAMIN B-12) 5,000 mcg subl Dissolve under the tongue. fsh/flx/prim/cur/bor /om3,6,9 5 (OMEGA 3-6-9 FATTY ACIDS ORAL) Take by mouth. Ascorbic Acid (VITAMIN C) 1,000 mg tablet Take 1,000 mg by mouth once daily. ALBUTEROL 90 MCG/ACTUATION AEROSOL INHALER as needed [...] GASTROINTESTINAL:no bowel changes. GENITOURINARY:no urinary symptoms. ENDOCRINE:no significant weight loss/gain, heat/cold intolerance. NEUROLOGICAL:no focal [...] Last 3 Encounter BP Readings: Date: BP: 06/21/2024 160/70 06/14/2024 164/63 05/24/2024 167/79 Last 3 Encounter Pulse Readings: Date: Pulse: 06/21/2024 57 06/14/2024 58 05/24/2024 74 Last 3 Encounter Wt Readings: Date: Wt: 06/21/2024 49.9 kg (110 lb 0.2 oz) 05/24/2024 50.5 kg (111 lb 5.3 oz) 06/17/2023 49.9 kg (110 lb) BP 132/60 Pulse 62 Ht 5' 2 (1.58m) Wt 109 lb 2 oz (49.5kg) SpO2 97% BMI 19.95 kg/(m2). GENERAL:No acute distress HEENT:Atraumatic, normocephalic. NECK: No JVD, no HJR, no carotid bruit, normal carotid upstrokes, no thyromegaly CARDIAC: Regular rhythm. Normal S1 and S2. No murmur, rub or gallop. LUNGS: clear to auscultation, no rhonchi, no rales, no wheezes ABDOMEN: Bowel sounds normal. EXTREMITIES: No peripheral edema NEURO: Oriented to person, place, and time. Appropriate and cooperative, no gross deficit. LABS: Cholesterol, Total (mg/dL) Date Value 07/11/2023 209 HDL Cholesterol (mg/dL) Date Value 07/11/2023 76 LDL Cholesterol (mg/dL) Date Value 07/11/2023 115 Triglyce (more content not included)... Normal [facility] CNOVon 06-21-2024 CNOV Office Visit (CARDAV) DORIE ROOT ([id number]) 1945 F Date Time Provider Department 06/21/24 11:00 AM RACHAEL CHANEY During your visit today, we recorded the following information about you: Pulse Blood pressure Weight Height 57/minute 160/70 49.9 kg 1.575 m Rachael Chaney MD 06/21/2024 11:14 AM Signed [facility] Stepan Sharif Department of Cardiovascular Medicine SECTION OF REGIONAL CARDIOLOGY OUTPATIENT VISIT DATE June 21, 2024 OUTPATIENT VISIT TYPE ESTABLISHED HISTORY OF PRESENT ILLNESS: Dorie Root is a (an) 79 year old year old female who is here today for follow-up. Since last visit denies chest pain, SOB, palpitations or lightheadedness. She reports today that she has been taking Lisinopril-HCTZ 10-12.5 mg daily for years (not Lisinopril 10 mg daily) Presents with her Last OV 06/17/23 Dorie Root is a 77 year old female from [place], [place] here today self referral. Has h/o [...] her asthma. On Lisinopril Presents with her No past medical history on file. No past surgical history on file. No family history on file. SOCIAL HISTORY Social History Tobacco Use Smoking status: Never Smokeless tobacco: Current ALLERGIES: Patient has no known allergies. CURRENT MEDICATIONS: Current Outpatient Medications Medication Sig escitalopram oxalate (LEXAPRO) 5 mg tablet Take 1 tablet by mouth daily at bedtime. BENEFIBER, GUAR GUM, ORAL Take by mouth. Coenzyme E69-Lhykjry E 100-5 mg-unit cap 2 gels Orally LUTEIN-ZEAXANTHIN ORAL Take by mouth. cyanocobalamin, vitamin B-12, (VITAMIN B-12) 5,000 mcg subl Dissolve under the tongue. fsh/flx/prim/cur/bor /om3,6,9 5 (OMEGA 3-6-9 FATTY ACIDS ORAL) Take by mouth. Ascorbic Acid (VITAMIN C) 1,000 mg tablet Take 1,000 mg by mouth once daily. lisinopril (PRINIVIL) 10 mg tablet Take 10 mg by mouth once daily. ALBUTEROL 90 MCG/ACTUATION AEROSOL INHALER as needed topiramate (TOPAMAX) 25 mg tablet Take 1 tablet by mouth daily at bedtime. Current Facility-Administere d Medications Medication Dose Route [...] Last 3 Encounter BP Readings: Date: BP: 06/21/2024 180/72 06/14/2024 164/63 05/24/2024 167/79 Last 3 Encounter Pulse Readings: Date: Pulse: 06/21/2024 57 06/14/2024 58 05/24/2024 74 Last 3 Encounter Wt Readings: Date: Wt: 06/21/2024 49.9 kg (110 lb 0.2 oz) 05/24/2024 50.5 kg (111 lb 5.3 oz) 06/17/2023 49.9 kg (110 lb) BP 160/70 Pulse 57 Ht 5' 2 (1.58m) Wt 110 lb 0.2 oz (49.9kg) SpO2 98% BMI 20.12 kg/(m2). GENERAL:No acute distress HEENT:Atraumatic, normocephalic. NECK: No JVD, no carotid bruit, normal carotid upstrokes, no thyromegaly CARDIAC: Regular rhythm. Normal S1 and S2. No murmur, rub or gallop. LUNGS: clear to auscultation, no rhonchi, no rales, no wheezes ABDOMEN: Bowel sounds normal. EXTREMITIES: No peripheral edema NEURO: Oriented to person, place, and time. Appropriate and cooperative, no gross deficit. LABS: Cholesterol, Total (mg/dL) Date Value 07/11/2023 209 HDL Cholesterol (mg/dL) Date Value 07/11/2023 76 LDL Cholesterol (mg/dL) Date Value 07/11/2023 115 Triglyceride (mg/dL) Date Value 07/11/2023 92 No results found for: NMRTOT No results found for: AST , ALT No results found for: CK No results found for: INR TSH (mIU/L) Date Value 06/02/2024 2.540 No results found for: BNP No results found for: PBNP No re (more content not included)... Normal [facility] [id number] 06-21-2024 ECG01 Ventricular Rate : 57 BPM Atrial Rate : 57 BPM P-R Interval : 142 ms QRS Duration : 86 ms Q-T Interval : 396 ms QTC Calculation(Bazett) : 385 ms Calculated P [place] : 78 degrees Calculated R [place] : 91 degrees Calculated T [place] : 64 degrees SINUS BRADYCARDIA Confirmed by Maria L Taylor M.D. ([id number]) on 06/21/2024 10:18:23 PM NAME : DORIE ROOT PID : [id number] : 1945 Gender : Female Race : ORD : Procedure Date : Jun 21 2024 10:47:23 Edit Date : Jun 21 2024 22:18:24 Diagnosis: SINUS BRADYCARDIA Confirmed by Maria L Taylor M.D. ([id number]) on 06/21/2024 10:18:23 PM Test Reason : Location : 192 : AVCRD Overread By : Maria L Taylor M.D. Edited By : Maria L Taylor M.D. Referred By : , Acquired by : Nataliia [facility] MR Brain WO contraston 06-18 * * *Final Report* * * DATE OF EXAM: Jun 18 2024 6:26PM [facility] 0294 - MRI BRAIN WO IVCON / PROCEDURE REASON: Memory impairment * * * * Physician Interpretation * * * * EXAMINATION: MRI BRAIN WO IVCON, MRI 3D POST PROCESSING CLINICAL HISTORY: Memory impairment TECHNIQUE: Axial LIBBY FLAIR, LIBBY T2, diffusion and susceptibility weighted imaging without contrast, using the ADNI dementia protocol and 3-D post-processing using the NeuroQuant software at an independent workstation with concurrent physician supervision and images were created, reviewed and archived. MQ: [email or web address] COMPARISON: Brain MRI 01/16/2023 RESULT: QUALITATIVE: Acute Intracranial Process: None. Chronic Intracranial Process: Scattered patchy areas of increased T2 and FLAIR signal are present in the supratentorial white matter which is a nonspecific finding but likely represents mild chronic microvascular ischemia. Number of chronic lacunar infarcts: Less than or equal to 2 Location of chronic lacunar infarcts: Left caudate nucleus. Age related white matter changes ([facility]) rating: White matter lesions: 1 Basal ganglia lesions: 0 Prior intracranial hemorrhage: Parenchymal microhemorrhages: 1 (right occipital lobe, image 9:44). Other (siderosis/macrohemo rrhages (>10mm): Not Applicable Amyloid Related Imaging Abnormalities: ARIA-E: N/A ARIA-H Microhemorrhage: N/A ARIA-H Siderosis: N/A Qualitative brain and hippocampal volume loss for age: Cortex: Moderate to severe and temporal parietal parenchyma, noting prominent volume loss also in the precuneus. White Matter: Moderate and symmetric Hippocampi: Severe and slightly worse on the left Ventricles: Commensurate with volume loss. Brain Parenchymal Signal and Morphology: The brain parenchyma is otherwise within normal limits of signal and morphology. There is no evidence of an intracranial mass or extraaxial fluid collection. Other Significant Findings: None. QUANTITATIVE: Exam Quality: Good for volumetric analysis. Segmentation: Negligible mismapping by visual inspection. Quantitative Data: Total Hippocampal Volume: Percentile for Age: 5 Asymmetry Index: -11 Inferior Lateral Vent Volume: Percentile for age: 99 Asymmetry Index: 1.9 Superior Lateral Vent Volume: Percentile for age: 99 Asymmetry Index: -0.7 Temporal Lobe Cortex Volume: Temporal Lobe Percentile for Age: 1 Temporal Lobe Asymmetry Index: -6.65 Frontal Lobe Cortex Volume: Frontal Lobe Percentile for Age: 9 Frontal Lobe Asymmetry Index: -3.95 Parietal Lobe Cortex Volume: Parietal Lobe Percentile for Age:2 Occipital Lobe Cortex Volume: Occipital Lobe Percentile for Age: 76 Whole Brain Volume Brain Percentile for Age: 7 Concordance between qualitative and quantitative hippocampal volume assessment: Concordant Change in brain volumes: No previous volumetric study for comparison Brain Volume Change: N/A Hippocampal Volume Change: N/A Superior Lateral Ventricle Volume Change: N/A Inferior Lateral Ventricle Volume Change: N/A Mean hippocampal volume loss among normal elderly: 0.7% per year, (-0.3 to 1.7; Damien 2008; also Dario 2010). [facility] Provider, [facility] - 06/18/2024 * * *Final Report* * * DATE OF EXAM: Jun 18 2024 6:26PM [facility] 0294 - MRI BRAIN WO IVCON / PROCEDURE REASON: Memory impairment * * * * Physician Interpretation * * * * EXAMINATION: MRI BRAIN WO IVCON, MRI 3D POST PROCESSING CLINICAL HISTORY: Memory impairment TECHNIQUE: Axial LIBBY FLAIR, LIBBY T2, diffusion and susceptibility weighted imaging without contrast, using the ADNI dementia protocol and 3-D post-processing using the Poynt software at an independent workstation with concurrent physician supervision and images were created, reviewed and archived. MQ: [email or web address] COMPARISON: Brain MRI 01/16/2023 RESULT: QUALITATIVE: Acute Intracranial Process: None. Chronic Intracranial Process: Scattered patchy areas of increased T2 and FLAIR signal are present in the supratentorial white matter which is a nonspecific finding but likely represents mild chronic microvascular ischemia. Number of chronic lacunar infarcts: Less than or equal to 2 Location of chronic lacunar infarcts: Left caudate nucleus. Age related white matter changes ([facility]) rating: White matter lesions: 1 Basal ganglia lesions: 0 Prior intracranial hemorrhage: Parenchymal microhemorrhages: 1 (right occipital lobe, image 9:44). Other (siderosis/macrohemo rrhages (>10mm): Not Applicable Amyloid Related Imaging Abnormalities: ARIA-E: N/A ARIA-H Microhemorrhage: N/A ARIA-H Siderosis: N/A Qualitative brain and hippocampal volume loss for age: Cortex: Moderate to severe and temporal parietal parenchyma, noting prominent volume loss also in the precuneus. White Matter: Moderate and symmetric Hippocampi: Severe and slightly worse on the left Ventricles: Commensurate with volume loss. Brain Parenchymal Signal and Morphology: The brain parenchyma is otherwise within normal limits of signal and morphology. There is no evidence of an intracranial mass or extraaxial fluid collection. Other Significant Findings: None. QUANTITATIVE: Exam Quality: Good for volumetric analysis. Segmentation: Negligible mismapping by visual inspection. Quantitative Data: Total Hippocampal Volume: Percentile for Age: 5 Asymmetry Index: -11 Inferior Lateral Vent Volume: Percentile for age: 99 Asymmetry Index: 1.9 Superior Lateral Vent Volume: Percentile for age: 99 Asymmetry Index: -0.7 Temporal Lobe Cortex Volume: Temporal Lobe Percentile for Age: 1 Temporal Lobe Asymmetry Index: -6.65 Frontal Lobe Cortex Volume: Frontal Lobe Percentile for Age: 9 Frontal Lobe Asymmetry Index: -3.95 Parietal Lobe Cortex Volume: Parietal Lobe Percentile for Age:2 Occipital Lobe Cortex Volume: Occipital Lobe Percentile for Age: 76 Whole Brain Volume Brain Percentile for Age: 7 Concordance between qualitative and quantitative hippocampal volume assessment: Concordant Change in brain volumes: No previous volumetric study for comparison Brain Volume Change: N/A Hippocampal Volume Change: N/A Superior Lateral Ventricle Volume Change: N/A Inferior Lateral Ventricle Volume Change: N/A Mean hippocampal volume loss among normal elderly: 0.7% per year, (-0.3 to 1.7; Damien 2008; also Dario 2010). IMPRESSION IMPRESSION: * No evidence of an acute intracranial process or intracranial mass. * Moderate to severe generalized volume loss, most pronounced in the temporal and parietal lobes. * Hippocampal volumes at the 5th percentile when compared to age matched normal controls by quantitative analysis. * Mild white matter disease which is nonspecific but likely reflective of chronic microvascular ischemia. 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 * Isolated parenchymal microhemorrhage by MRI which is non-specific. REFERENCES: White Matter Lesions: 0 = No lesions, including symmetrical, well-defined caps or bands 1 = Focal Lesions 2 = Beginning of [place] 3 = Diffuse Involvement of Entire Region Basal Ganglia Lesions: 0 = No Lesions 1 = 1 Focal Lesion (>5mm) 2 = >1 Focal Lesion (>5mm) 3 = Confluent Lesions Dario Lua, et al. The clinical use of structural MRI in Alzheimer disease. Nature Reviews Neurology 6;67 (2010). Damien et al. Validation of a fully automated 3D hippocampal segmentation method using subjects with Alzheimer's disease mild cognitive impairment, and elderly controls. Neuroimage 43;59 (2008). Wahlund et al. A New Rating Scale for Age-Related White Matter Changes Applicable to MRI and CT. Stroke. 32:1318 (2001). * Asymmetry index defined as difference between left and right volumes divided by mean or [(L-R/Mean) x 100] (%). Age-matched reference charts measure total hippocampal volume (% of intracranial volume). See results from the analysis charts for details. Casino Cashier Manager: TIFFANIE Villa (more content not included)... [facility] MR Unspecified body region 3 D post processingon 06-18-2024 * * *Final Report* * * DATE OF EXAM: Jun 18 2024 6:26PM [facility] 0280 - MRI 3D POST PROCESSING / PROCEDURE REASON: Memory impairment * * * * Physician Interpretation * * * * EXAMINATION: MRI BRAIN WO IVCON, MRI 3D POST PROCESSING CLINICAL HISTORY: Memory impairment TECHNIQUE: Axial LIBBY FLAIR, LIBBY T2, diffusion and susceptibility weighted imaging without contrast, using the ADNI dementia protocol and 3-D post-processing using the Poynt software at an independent workstation with concurrent physician supervision and images were created, reviewed and archived. MQ: [email or web address] COMPARISON: Brain MRI 01/16/2023 RESULT: QUALITATIVE: Acute Intracranial Process: None. Chronic Intracranial Process: Scattered patchy areas of increased T2 and FLAIR signal are present in the supratentorial white matter which is a nonspecific finding but likely represents mild chronic microvascular ischemia. Number of chronic lacunar infarcts: Less than or equal to 2 Location of chronic lacunar infarcts: Left caudate nucleus. Age related white matter changes ([facility]) rating: White matter lesions: 1 Basal ganglia lesions: 0 Prior intracranial hemorrhage: Parenchymal microhemorrhages: 1 (right occipital lobe, image 9:44). Other (siderosis/macrohemo rrhages (>10mm): Not Applicable Amyloid Related Imaging Abnormalities: ARIA-E: N/A ARIA-H Microhemorrhage: N/A ARIA-H Siderosis: N/A Qualitative brain and hippocampal volume loss for age: Cortex: Moderate to severe and temporal parietal parenchyma, noting prominent volume loss also in the precuneus. White Matter: Moderate and symmetric Hippocampi: Severe and slightly worse on the left Ventricles: Commensurate with volume loss. Brain Parenchymal Signal and Morphology: The brain parenchyma is otherwise within normal limits of signal and morphology. There is no evidence of an intracranial mass or extraaxial fluid collection. Other Significant Findings: None. QUANTITATIVE: Exam Quality: Good for volumetric analysis. Segmentation: Negligible mismapping by visual inspection. Quantitative Data: Total Hippocampal Volume: Percentile for Age: 5 Asymmetry Index: -11 Inferior Lateral Vent Volume: Percentile for age: 99 Asymmetry Index: 1.9 Superior Lateral Vent Volume: Percentile for age: 99 Asymmetry Index: -0.7 Temporal Lobe Cortex Volume: Temporal Lobe Percentile for Age: 1 Temporal Lobe Asymmetry Index: -6.65 Frontal Lobe Cortex Volume: Frontal Lobe Percentile for Age: 9 Frontal Lobe Asymmetry Index: -3.95 Parietal Lobe Cortex Volume: Parietal Lobe Percentile for Age:2 Occipital Lobe Cortex Volume: Occipital Lobe Percentile for Age: 76 Whole Brain Volume Brain Percentile for Age: 7 Concordance between qualitative and quantitative hippocampal volume assessment: Concordant Change in brain volumes: No previous volumetric study for comparison Brain Volume Change: N/A Hippocampal Volume Change: N/A Superior Lateral Ventricle Volume Change: N/A Inferior Lateral Ventricle Volume Change: N/A Mean hippocampal volume loss among normal elderly: 0.7% per year, (-0.3 to 1.7; Damien 2008; also Dario 2010). [facility] Provider, [facility] - 06/18/2024 * * *Final Report* * * DATE OF EXAM: Jun 18 2024 6:26PM [facility] 0280 - MRI 3D POST PROCESSING / PROCEDURE REASON: Memory impairment * * * * Physician Interpretation * * * * EXAMINATION: MRI BRAIN WO IVCON, MRI 3D POST PROCESSING CLINICAL HISTORY: Memory impairment TECHNIQUE: Axial LIBBY FLAIR, LIBBY T2, diffusion and susceptibility weighted imaging without contrast, using the ADNI dementia protocol and 3-D post-processing using the Poynt software at an independent workstation with concurrent physician supervision and images were created, reviewed and archived. MQ: [email or web address] COMPARISON: Brain MRI 01/16/2023 RESULT: QUALITATIVE: Acute Intracranial Process: None. Chronic Intracranial Process: Scattered patchy areas of increased T2 and FLAIR signal are present in the supratentorial white matter which is a nonspecific finding but likely represents mild chronic microvascular ischemia. Number of chronic lacunar infarcts: Less than or equal to 2 Location of chronic lacunar infarcts: Left caudate nucleus. Age related white matter changes ([facility]) rating: White matter lesions: 1 Basal ganglia lesions: 0 Prior intracranial hemorrhage: Parenchymal microhemorrhages: 1 (right occipital lobe, image 9:44). Other (siderosis/macrohemo rrhages (>10mm): Not Applicable Amyloid Related Imaging Abnormalities: ARIA-E: N/A ARIA-H Microhemorrhage: N/A ARIA-H Siderosis: N/A Qualitative brain and hippocampal volume loss for age: Cortex: Moderate to severe and temporal parietal parenchyma, noting prominent volume loss also in the precuneus. White Matter: Moderate and symmetric Hippocampi: Severe and slightly worse on the left Ventricles: Commensurate with volume loss. Brain Parenchymal Signal and Morphology: The brain parenchyma is otherwise within normal limits of signal and morphology. There is no evidence of an intracranial mass or extraaxial fluid collection. Other Significant Findings: None. QUANTITATIVE: Exam Quality: Good for volumetric analysis. Segmentation: Negligible mismapping by visual inspection. Quantitative Data: Total Hippocampal Volume: Percentile for Age: 5 Asymmetry Index: -11 Inferior Lateral Vent Volume: Percentile for age: 99 Asymmetry Index: 1.9 Superior Lateral Vent Volume: Percentile for age: 99 Asymmetry Index: -0.7 Temporal Lobe Cortex Volume: Temporal Lobe Percentile for Age: 1 Temporal Lobe Asymmetry Index: -6.65 Frontal Lobe Cortex Volume: Frontal Lobe Percentile for Age: 9 Frontal Lobe Asymmetry Index: -3.95 Parietal Lobe Cortex Volume: Parietal Lobe Percentile for Age:2 Occipital Lobe Cortex Volume: Occipital Lobe Percentile for Age: 76 Whole Brain Volume Brain Percentile for Age: 7 Concordance between qualitative and quantitative hippocampal volume assessment: Concordant Change in brain volumes: No previous volumetric study for comparison Brain Volume Change: N/A Hippocampal Volume Change: N/A Superior Lateral Ventricle Volume Change: N/A Inferior Lateral Ventricle Volume Change: N/A Mean hippocampal volume loss among normal elderly: 0.7% per year, (-0.3 to 1.7; Damien 2008; also Dario 2010). IMPRESSION IMPRESSION: * No evidence of an acute intracranial process or intracranial mass. * Moderate to severe generalized volume loss, most pronounced in the temporal and parietal lobes. * Hippocampal volumes at the 5th percentile when compared to age matched normal controls by quantitative analysis. * Mild white matter disease which is nonspecific but likely reflective of chronic microvascular ischemia. 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 * Isolated parenchymal microhemorrhage by MRI which is non-specific. REFERENCES: White Matter Lesions: 0 = No lesions, including symmetrical, well-defined caps or bands 1 = Focal Lesions 2 = Beginning of [place] 3 = Diffuse Involvement of Entire Region Basal Ganglia Lesions: 0 = No Lesions 1 = 1 Focal Lesion (>5mm) 2 = >1 Focal Lesion (>5mm) 3 = Confluent Lesions Dario Lua, et al. The clinical use of structural MRI in Alzheimer disease. Nature Reviews Neurology 6;67 (2010). Damien et al. Validation of a fully automated 3D hippocampal segmentation method using subjects with Alzheimer's disease mild cognitive impairment, and elderly controls. Neuroimage 43;59 (2008). Keke et al. A New Rating Scale for Age-Related White Matter Changes Applicable to MRI and CT. Stroke. 32:1318 (2001). * Asymmetry index defined as difference between left and right volumes divided by mean or [(L-R/Mean) x 100] (%). Age-matched reference charts measure total hippocampal volume (% of intracranial volume). See results from the analysis charts for details. Casino Cashier Manager: TIFFANIE (more content not included)... [facility] MRI 3D POST PROCESSINGon MRI 3D POST PROCESSING * * *Final Report* * * DATE OF EXAM: Jun 18 2024 6:26PM [facility] 0280 - MRI 3D POST PROCESSING / PROCEDURE REASON: Memory impairment * * * * Physician Interpretation * * * * EXAMINATION: MRI BRAIN WO IVCON, MRI 3D POST PROCESSING CLINICAL HISTORY: Memory impairment TECHNIQUE: Axial LIBBY FLAIR, LIBBY T2, diffusion and susceptibility weighted imaging without contrast, using the ADNI dementia protocol and 3-D post-processing using the Poynt software at an independent workstation with concurrent physician supervision and images were created, reviewed and archived. MQ: [email or web address] COMPARISON: Brain MRI 01/16/2023 RESULT: QUALITATIVE: Acute Intracranial Process: None. Chronic Intracranial Process: Scattered patchy areas of increased T2 and FLAIR signal are present in the supratentorial white matter which is a nonspecific finding but likely represents mild chronic microvascular ischemia. Number of chronic lacunar infarcts: Less than or equal to 2 Location of chronic lacunar infarcts: Left caudate nucleus. Age related white matter changes ([facility]) rating: White matter lesions: 1 Basal ganglia lesions: 0 Prior intracranial hemorrhage: Parenchymal microhemorrhages: 1 (right occipital lobe, image 9:44). Other (siderosis/macrohemo rrhages (>10mm): Not Applicable Amyloid Related Imaging Abnormalities: ARIA-E: N/A ARIA-H Microhemorrhage: N/A ARIA-H Siderosis: N/A Qualitative brain and hippocampal volume loss for age: Cortex: Moderate to severe and temporal parietal parenchyma, noting prominent volume loss also in the precuneus. White Matter: Moderate and symmetric Hippocampi: Severe and slightly worse on the left Ventricles: Commensurate with volume loss. Brain Parenchymal Signal and Morphology: The brain parenchyma is otherwise within normal limits of signal and morphology. There is no evidence of an intracranial mass or extraaxial fluid collection. Other Significant Findings: None. QUANTITATIVE: Exam Quality: Good for volumetric analysis. Segmentation: Negligible mismapping by visual inspection. Quantitative Data: Total Hippocampal Volume: Percentile for Age: 5 Asymmetry Index: -11 Inferior Lateral Vent Volume: Percentile for age: 99 Asymmetry Index: 1.9 Superior Lateral Vent Volume: Percentile for age: 99 Asymmetry Index: -0.7 Temporal Lobe Cortex Volume: Temporal Lobe Percentile for Age: 1 Temporal Lobe Asymmetry Index: -6.65 Frontal Lobe Cortex Volume: Frontal Lobe Percentile for Age: 9 Frontal Lobe Asymmetry Index: -3.95 Parietal Lobe Cortex Volume: Parietal Lobe Percentile for Age:2 Occipital Lobe Cortex Volume: Occipital Lobe Percentile for Age: 76 Whole Brain Volume Brain Percentile for Age: 7 Concordance between qualitative and quantitative hippocampal volume assessment: Concordant Change in brain volumes: No previous volumetric study for comparison Brain Volume Change: N/A Hippocampal Volume Change: N/A Superior Lateral Ventricle Volume Change: N/A Inferior Lateral Ventricle Volume Change: N/A Mean hippocampal volume loss among normal elderly: 0.7% per year, (-0.3 to 1.7; Damien 2008; also Dario 2010). IMPRESSION: * No evidence of an acute intracranial process or intracranial mass. * Moderate to severe generalized volume loss, most pronounced in the temporal and parietal lobes. * Hippocampal volumes at the 5th percentile when compared to age matched normal controls by quantitative analysis. * Mild white matter disease which is nonspecific but likely reflective of chronic microvascular ischemia. 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 * Isolated parenchymal microhemorrhage by MRI which is non-specific. REFERENCES: White Matter Lesions: 0 = No lesions, including symmetrical, well-defined caps or bands 1 = Focal Lesions 2 = Beginning of [place] 3 = Diffuse Involvement of Entire Region Basal Ganglia Lesions: 0 = No Lesions 1 = 1 Focal Lesion (>5mm) 2 = >1 Focal Lesion (>5mm) 3 = Confluent Lesions Dario Lua, et al. The clinical use of structural MRI in Alzheimer disease. Nature Reviews Neurology 6;67 (2010). Damien et al. Validation of a fully automated 3D hippocampal segmentation method using subjects with Alzheimer's disease mild cognitive impairment, and elderly controls. Neuroimage 43;59 (2008). Wahlund et al. A New Rating Scale for Age-Related White Matter Changes Applicable to MRI and CT. Stroke. 32:1318 (2001). * Asymmetry index defined as difference between left and right volumes divided by mean or [(L-R/Mean) x 100] (%). Age-matched reference charts measure total hippocampal volume (% of intracranial volume). See results from the analysis charts for details. Casino Cashier Manager: TIFFANIE Transcribe Date/Time: Jun 18 2024 8:42P Dictated by : DORIAN BUSH MD This examination was interpreted and the report reviewed and electronically signed by: DORIAN (more content not included)... Normal [facility] MRI BRAIN WO IVCONon 18-2 024 MRI BRAIN WO IVCON * * *Final Report* * * DATE OF EXAM: Jun 18 2024 6:26PM [facility] 0294 - MRI BRAIN WO IVCON / PROCEDURE REASON: Memory impairment * * * * Physician Interpretation * * * * EXAMINATION: MRI BRAIN WO IVCON, MRI 3D POST PROCESSING CLINICAL HISTORY: Memory impairment TECHNIQUE: Axial LIBBY FLAIR, LIBBY T2, diffusion and susceptibility weighted imaging without contrast, using the ADNI dementia protocol and 3-D post-processing using the Poynt software at an independent workstation with concurrent physician supervision and images were created, reviewed and archived. MQ: [id number] COMPARISON: Brain MRI 01/16/2023 RESULT: QUALITATIVE: Acute Intracranial Process: None. Chronic Intracranial Process: Scattered patchy areas of increased T2 and FLAIR signal are present in the supratentorial white matter which is a nonspecific finding but likely represents mild chronic microvascular ischemia. Number of chronic lacunar infarcts: Less than or equal to 2 Location of chronic lacunar infarcts: Left caudate nucleus. Age related white matter changes (ARWMC) rating: White matter lesions: 1 Basal ganglia lesions: 0 Prior intracranial hemorrhage: Parenchymal microhemorrhages: 1 (right occipital lobe, image 9:44). Other (siderosis/macrohemo rrhages (>10mm): Not Applicable Amyloid Related Imaging Abnormalities: ARIA-E: N/A ARIA-H Microhemorrhage: N/A ARIA-H Siderosis: N/A Qualitative brain and hippocampal volume loss for age: Cortex: Moderate to severe and temporal parietal parenchyma, noting prominent volume loss also in the precuneus. White Matter: Moderate and symmetric Hippocampi: Severe and slightly worse on the left Ventricles: Commensurate with volume loss. Brain Parenchymal Signal and Morphology: The brain parenchyma is otherwise within normal limits of signal and morphology. There is no evidence of an intracranial mass or extraaxial fluid collection. Other Significant Findings: None. QUANTITATIVE: Exam Quality: Good for volumetric analysis. Segmentation: Negligible mismapping by visual inspection. Quantitative Data: Total Hippocampal Volume: Percentile for Age: 5 Asymmetry Index: -11 Inferior Lateral Vent Volume: Percentile for age: 99 Asymmetry Index: 1.9 Superior Lateral Vent Volume: Percentile for age: 99 Asymmetry Index: -0.7 Temporal Lobe Cortex Volume: Temporal Lobe Percentile for Age: 1 Temporal Lobe Asymmetry Index: -6.65 Frontal Lobe Cortex Volume: Frontal Lobe Percentile for Age: 9 Frontal Lobe Asymmetry Index: -3.95 Parietal Lobe Cortex Volume: Parietal Lobe Percentile for Age:2 Occipital Lobe Cortex Volume: Occipital Lobe Percentile for Age: 76 Whole Brain Volume Brain Percentile for Age: 7 Concordance between qualitative and quantitative hippocampal volume assessment: Concordant Change in brain volumes: No previous volumetric study for comparison Brain Volume Change: N/A Hippocampal Volume Change: N/A Superior Lateral Ventricle Volume Change: N/A Inferior Lateral Ventricle Volume Change: N/A Mean hippocampal volume loss among normal elderly: 0.7% per year, (-0.3 to 1.7; Damien 2008; also Dario 2010). IMPRESSION: * No evidence of an acute intracranial process or intracranial mass. * Moderate to severe generalized volume loss, most pronounced in the temporal and parietal lobes. * Hippocampal volumes at the 5th percentile when compared to age matched normal controls by quantitative analysis. * Mild white matter disease which is nonspecific but likely reflective of chronic microvascular ischemia. 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 * Isolated parenchymal microhemorrhage by MRI which is non-specific. REFERENCES: White Matter Lesions: 0 = No lesions, including symmetrical, well-defined caps or bands 1 = Focal Lesions 2 = Beginning of [place] 3 = Diffuse Involvement of Entire Region Basal Ganglia Lesions: 0 = No Lesions 1 = 1 Focal Lesion (>5mm) 2 = >1 Focal Lesion (>5mm) 3 = Confluent Lesions Dario Lua, et al. The clinical use of structural MRI in Alzheimer disease. Nature Reviews Neurology 6;67 (2010). Damien et al. Validation of a fully automated 3D hippocampal segmentation method using subjects with Alzheimer's disease mild cognitive impairment, and elderly controls. Neuroimage 43;59 (2008). Wahlund et al. A New Rating Scale for Age-Related White Matter Changes Applicable to MRI and CT. Stroke. 32:1318 (2001). * Asymmetry index defined as difference between left and right volumes divided by mean or [(L-R/Mean) x 100] (%). Age-matched reference charts measure total hippocampal volume (% of intracranial volume). See results from the analysis charts for details. Casino Cashier Manager: TIFFANIE Transcribe Date/Time: Jun 18 2024 8:42P Dictated by : DORIAN BUSH MD This examination was interpreted and the report reviewed and electronically signed by: DORIAN STANTON (more content not included)... [facility] No Panel Informationon 06-18 IMPRESSION: * No evidence of an acute intracranial process or intracranial mass. * Moderate to severe generalized volume loss, most pronounced in the temporal and parietal lobes. * Hippocampal volumes at the 5th percentile when compared to age matched normal controls by quantitative analysis. * Mild white matter disease which is nonspecific but likely reflective of chronic microvascular ischemia. 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 * Isolated parenchymal microhemorrhage by MRI which is non-specific. REFERENCES: White Matter Lesions: 0 = No lesions, including symmetrical, well-defined caps or bands 1 = Focal Lesions 2 = Beginning of [place] 3 = Diffuse Involvement of Entire Region Basal Ganglia Lesions: 0 = No Lesions 1 = 1 Focal Lesion (>5mm) 2 = >1 Focal Lesion (>5mm) 3 = Confluent Lesions Dario Lau et al. The clinical use of structural MRI in Alzheimer disease. Nature Reviews Neurology 6;67 (2010). Damien et al. Validation of a fully automated 3D hippocampal segmentation method using subjects with Alzheimer's disease mild cognitive impairment, and elderly controls. Neuroimage 43;59 (2008). Keke et al. A New Rating Scale for Age-Related White Matter Changes Applicable to MRI and CT. Stroke. 32:1318 (2001). * Asymmetry index defined as difference between left and right volumes divided by mean or [(L-R/Mean) x 100] (%). Age-matched reference charts measure total hippocampal volume (% of intracranial volume). See results from the analysis charts for details. Casino Cashier Manager: TIFFANIE Transcribe Date/Time: Jun 18 2024 8:42P Dictated by : DORIAN BUSH MD This examination was interpreted and the report reviewed and electronically signed by: DORIAN BUSH MD on Jun 18 2024 11:06PM [facility] RADIOLOGY Radiology Study observation (narrative) [facility] No Panel InformationOrdered By: Ccf Provider on 06-18-2024 [facility] CNOVon 06-14-2024 CNOV Office Visit (NEURAV) DORIE ROOT ([id number]) 1945 F Date Time Provider Department 06/14/24 11:40 AM ISAAC MATSON During your visit today, we recorded the following information about you: Pulse Blood pressure 58/minute 164/63 Ta Jensen LPN 06/14/2024 11:32 AM Signed 06/13/2024 PROMIS Global Health Physical Health Summary Physical health: Very good Everyday physical activity, ability: Moderately Fatigue: Moderate Pain level: 4 General health: Good Social activities/roles, ability: Good Physical Health T-Score 42.3 (Good) Physical Health Percentile 22 PROMIS [facility] Mental Health Summary Quality of life: Good Mental health (mood,thinking): Good Social satisfaction: Fair Emotional problems (anxious,depressed): Sometimes Mental Health T-Score 41.1 (Good) Mental Health Percentile 19 PHQ-9 Score: 5(Mild Depression) PHQ-9 Self-Harm: Not at all RONI-7 Score: 7(Mild Anxiety) NEURO-QOL Cognitive Function T-Score 40(Mild Dysfunction) Neuro-Qol Cognitive Function Percentile 16 PROMIS Physical Function T-Score 39(Moderate Dysfunction) PROMIS Physical Function Percentile 14 PROMIS Pain Interference T-Score 59(Mild) PROMIS Pain Interference Percentile 18 Percentiles provide an indication of how a patient's score ranks in relation to the [place] general population. > 31st percentile is within normal limits or better *< 31st percentile is at least ? SD worse than population, which may be clinically relevant < 16th percentile is at least 1 SD worse than population and warrants attention Isaac Matson MD 06/14/2024 11:32 AM Signed NEUROLOGY PROGRESS NOTE Dorie Root is a 79 year old female. Who has a history of headaches comes in for follow up. Interval History Dorie Root is a 79 year old female, with a history of [...] has had therapy but to no avail. Patient complaining of headaches today. She has headaches before but I did put her on Topamax as she thought it may have helped. She is off it now will restart at 25 mg at bedtime. She is seeing general neurology for her memory issues. She is scheduled for an MRI this Friday. Comes in today for follow-up visit. There is no problem list on file for this patient. No past surgical history on file. Current Outpatient Medications on File Prior to Visit Medication Sig escitalopram oxalate (LEXAPRO) 5 mg tablet Take 1 tablet by mouth daily at bedtime. BENEFIBER, GUAR GUM, ORAL Take by mouth. Coenzyme D86-Esiodwx E 100-5 mg-unit cap 2 gels Orally LUTEIN-ZEAXANTHIN ORAL Take by mouth. cyanocobalamin, vitamin B-12, (VITAMIN B-12) 5,000 mcg subl Dissolve under the tongue. fsh/flx/prim/cur/bor /om3,6,9 5 (OMEGA 3-6-9 FATTY ACIDS ORAL) Take by mouth. Ascorbic Acid (VITAMIN C) 1,000 mg tablet Take 1,000 mg by mouth once daily. lisinopril (PRINIVIL) 10 mg tablet Take 10 mg by mouth once daily. ALBUTEROL 90 MCG/ACTUATION AEROSOL INHALER as needed Current Facility-Administere d Medications on File Prior to Visit Medication perflutren lipid microspheres 1.3 mL in NaCl (PF) 0.9% 10 mL injection (DEFINITY) sodium chloride 0.9 % (flush) 10 mL (BD POSIFLUSH) Social History Tobacco Use Smoking status: Never Smokeless tobacco: Current family history is not on file. GENERAL:No weight loss, malaise or fevers., SEE HPI HEENT: No changes in hearing or vision, no [...] HPI. All systems reviewed and are negative 06/14/24 1108 BP: 164/63 Pulse: (!) 58 PHYSICAL EXAMINATION: General appearance: well appearing, alert, [...] nose-finger intact bilaterally GAIT: Normal-based IMPRESSION: 1. Headache disorder PLAN: As abov (more content not included)... Normal [facility] T4/FTI/T4Uon 06-03-2024 FTI 8.4 ug/dL 5.3 - 10.8 ug/dL [facility] Interpretation and review of laboratory results Normal [facility] T4 [Mass/Vol] 8.5 ug/dL 5.5 - 10.2 ug/dL [facility] T4 uptake [Mass/Vol] 1.01 0.91 - 1.19 [facility] 25(OH)D3 SerPl-mCncon 2023 25-hydroxyvitamin D3 [Mass/Vol] 46.5 ng/mL Normal 31.0-80.0 [facility] Comment on above: Order Comment: Apoorva florence Type: BLOOD SPECIMEN Ordering Facility: [facility] Address: [address] [place] [address] Performed By: #### 1 989-3 #### [facility] CLIA [id number] [address] [place] [address] [place] 25-hydroxyvitamin D3 [Mass/V ol]on 06-02-2024 Interpretation and review of laboratory results Normal [facility] Cobalamin (Vitamin B12) [Mas s/Vol]on 06-02-2024 Interpretation and review of laboratory results Abnormal [facility] T4/FTI/T4Uon 06-02-2024 FTI 8.4 ug/dL Normal 5.3-10.8 [facility] Comment on above: Order Comment: Apoorva florence Type: BLOOD SPECIMEN Ordering Facility: [facility] Address: [address] [place] [address] Performed By: #### T 4FTI #### [facility] CLIA [id number] [address] [place] [address] [place] T4 [Mass/Vol] 8.5 ug/dL Normal 5.5-10.2 [facility] Comment on above: Order Comment: Speci men Type: BLOOD SPECIMEN Ordering Facility: [facility] Address: [address] [place] [address] Performed By: #### T 4FTI #### [facility] CLIA [id number] [address] [place] [address] [place] T4 uptake [Mass/Vol] 1.01 Normal 0.91-1.19 [facility] Comment on above: Order Comment: Speci men Type: BLOOD SPECIMEN Ordering Facility: [facility] Address: [address] [place] [address] Performed By: #### T 4FTI #### [facility] CLIA [id number] [address] [place] [address] [place] THYROID STIMULATING HORMONEo n 06-02-2024 TSH Qn 2.540 m[IU]/L [facility] TSH Qnon 06-02-2024 Interpretation and review of laboratory results Normal [facility] TSH SerPl-aCncon 06-02-2024 TSH Qn 2.540 m[IU]/L Normal 0.270-4.200 [facility] Comment on above: Order Comment: Speci men Type: BLOOD SPECIMEN Ordering Facility: [facility] Address: [address] [place] [address] Performed By: #### 3 016-3 #### [facility] CLIA [id number] [address] [place] [address] [place] VITAMIN B12on 06-02-2024 Cobalamin (Vitamin B12) [Mass/Vol] pg/mL High 232 - 1245 pg/mL [facility] VITAMIN D 25 HYDROXYon 06-02 25-hydroxyvitamin D3 [Mass/Vol] 46.5 ng/mL 31.0 - 80.0 ng/mL [facility] Vit B12 SerPl-mCncon 024 Cobalamin (Vitamin B12) [Mass/Vol] pg/mL High 232-1241 [facility] Comment on above: Order Comment: Speci men Type: BLOOD SPECIMEN Ordering Facility: [facility] Address: [address] [place] [address] Performed By: #### 2 132-9 #### [facility] CLIA [id number] 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 The current evaluation was performed in the context of medical care and a clinical referral question and not for purposes of a forensic, disability, or workers' compensation evaluation. This assessment is part of a multidisciplinary evaluation conducted in the [facility]. The assessment consisted of a brief interview with the patient and collateral (when available), neurobehavioral examination, and standardized neuropsychological assessment. Given the targeted nature of the referral, details of the patient's history, which are already known to the referral source, are only briefly summarized. Please see patient medical records for more detailed information. RELEVANT BACKGROUND: Ms. Dorie Root is an 79 year old, right-handed, , White female referred for a neuropsychological evaluation in the context of cognitive concerns. MoCA score in a visit with Dr. Jiménez (05/24/24) was . The patient was accompanied to the evaluation by her , and the history was taken from both sources. According to the patient and her , cognitive changes began insidiously approximately 2 years ago and have worsened over time. REVIEW OF COGNITIVE FUNCTIONS: Memory: short-term memory problems (difficulty recalling conversations, events, names), reminders may help, she repeats herself Attention/Working Memory: distractible, harder to remain on task Executive Functions: occasionally misplaces items, mild difficulty making decisions Language: word finding problems Visuospatial: no changes Processing Speed: slowed Motor: no changes FUNCTIONAL STATUS: Driving: she drives very little and remains local due to episodes of dizziness Medications: manages herself (with occasional help from her ), uses a list to manage Finances: assumed responsibility about 3 months ago, as patient was having difficulty Appointments: manages herself using a datebook The patient reported that her mood varies, and she experiences anxiety and depression at times. She also is more reluctant to travel. Suicidal ideation was denied. There were no additional behavioral/personali ty changes reported. RECENT WORK-UP: MRI Brain: 01/16/2023 IMPRESSION: Unremarkable MRI brain for age. No evidence of hydrocephalus or posterior fossa abnormality. No acute intracranial infarction. Updated brain MRI pending (06/18/2024) SOCIAL/ACADEMIC/OCCU PATIONAL BACKGROUND: Development: No complications or developmental delays Medical History: hypertension, rheumatic fever (childhood) Surgical History: none reported Neurological History: no history of head injury, stroke, or seizure Current Medications (in [facility]): Lexapro, topiramate, Albuterol, lisinopril, Benefiber, coenzyme Q-10, lutein-zeaxanthin, vitamin B-12, omega-3 fatty acids, vitamin C. Psychiatric History: The patient was initially treated for anxiety/depression starting about 6 months ago. She recently discontinued hydroxyzine and started Lexapro. Substance Use: Current substance use is unremarkable. Past substance use is unremarkable. Family Medical History: memory problems (mother, late 80's) Educational History: 12 years, Denied early attention problems or learning difficulties. 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 Social History: The patient is and has 4 children. The patient lives with her . PHYSICAL FUNCTIONING: Motor Problems: dizziness, reduced balance Sensory Problems: reduced hearing (got hearing aids about 10 days ago), loss of smell for decades Pain: denied chronic pain Sleep: Average of 6 hours per night, reported that she may awaken after a few hours and read, sometimes she is able to resume sleep. She feels rested upon awakening. No reported dream enactment behaviors. She does not nap. Autonomic Dysfunction: none BEHAVIORAL OBSERVATIONS: Mood: euthymic, initially reported anxiety at beginning of testing Affect: broad Rapport: amicable Speech: fluent Comprehension: required elaboration/repetiti on of test instructions Historian: generally good Thought Processes: logical Motor: normal Sensory Problems: reduced hearing (not wearing her hearing aids), wore glasses Participation: active Attention: appeared alert and attentive Behavio (more content not included)... Normal [facility] CNOVon 05-24-2024 CNOV Office Visit (IMGCMN) DORIE ROOT ([id number]) 1945 F Date Time Provider Department 05/24/24 1:00 PM CASSIUS JIMÉNEZ IMGCMN During your visit today, we recorded the following information about you: Pulse Blood pressure Weight Normal [facility] Ambulatory Visit Summaryon 0 05-19-2024 Ambulatory Visit Summary Ambulatory Visit Summary DORIE ROOT :1945 Visit Date:05/19/2024 Ambulatory Visit Instructions Your Diagnosis Irritable bowel syndrome with constipation Pelvic floor dysfunction Lower abdominal pain H/O: hysterectomy Your Care Team Attending Physician - Byron DOS SANTOS, Dung Castaneda Primary Care Physician - Lise DOS SANTOS, Srinivasan Milligan This Is Your Medications List Contact prescribing physician if questions or concerns albuterol (Albuterol (Eqv-ProAir HFA) 90 mcg/inh inhalation aerosol) amoxicillin ascorbic acid (Lina-C) calcium carbonate (Caltrate) fluticasone-vilanter ol (Breo Ellipta 200 mcg-25 mcg/inh inhalation powder) fluticasone-vilanter ol (Breo Ellipta 200 mcg-25 mcg/inh inhalation powder) hydrOXYzine (hydrOXYzine hydrochloride 10 mg Tab) hydrochlorothiazide- lisinopril (hydrochlorothiazide -lisinopril 12.5 mg-10 mg Tab) lutein (Lutein) omega-3 polyunsaturated fatty acids ([place]-3 Fish Oil) ubiquinone (CoQ10 100 mg oral capsule) wheat dextrin (Benefiber) Procedures Performed Colonoscopy (10/01/2021), Dilatation and curettage: routine. Discharge Vitals Heart Rate (Peripheral) 80 Respiratory Rate 16 Blood Pressure 163/88 Height 62 in Height 158 cm Weight 111.54 lb Weight 50.7 kg BMI 20.31 What to do next Scheduled Follow-Up Appointments Friday 10:45 AM EST With: Lise DOS SANTOS, Srinivasan Milligan Where: [address] [address]- Friday 11:00 AM EST With: Where: [address] [address]- Medications What How Much When Why Instructions Unchanged albuterol (Albuterol (Eqv-ProAir HFA) 90 mcg/ inh inhalation aerosol) 2 Puffs Inhalation Every 6 hours Contact prescribing physician if questions or concerns Unchanged amoxicillin 2,000 Milligram By Mouth Once as needed for Other (see comment) 30 to 60 minutes prior to dental procedure Contact prescribing physician if questions or concerns Unchanged ascorbic acid (Lina-C) By Mouth Every day Contact prescribing physician if questions or concerns Unchanged calcium carbonate (Caltrate) By Mouth Every day Contact prescribing physician if questions or concerns Unchanged fluticasone-vilanter ol (Breo Ellipta 200 mcg-25 mcg/ inh inhalation powder) INHALE 1 PUFF BY MOUTH DAILY Contact prescribing physician if questions or concerns Unchanged fluticasone-vilanter ol (Breo Ellipta 200 mcg-25 mcg/ inh inhalation powder) 1 Puffs Inhalation Every day Lung nodule Contact prescribing physician if questions or concerns Unchanged hydrochlorothiazide- lisinopril (hydrochlorothiazide -lisinopril 12.5 mg-10 mg Tab) See instructions TAKE 1 TABLET BY MOUTH DAILY Contact prescribing physician if questions or concerns Unchanged hydrOXYzine (hydrOXYzine hydrochloride 10 mg Tab) See instructions TAKE 1 TABLET BY MOUTH 4 TIMES A DAY NEEDED FOR ANXIETY Contact prescribing physician if questions or concerns Unchanged lutein (Lutein) By Mouth Every day Contact prescribing physician if questions or concerns Unchanged omega-3 polyunsaturated fatty acids ([place]-3 Fish Oil) By Mouth 3 times a day Contact prescribing physician if questions or concerns Unchanged ubiquinone (CoQ10 100 mg oral capsule) Contact prescribing physician if questions or concerns Unchanged wheat dextrin (Benefiber) See instructions uses guar gum orally by mouth Contact prescribing physician if questions or concerns Medications and Immunizations Administered Not Given influenza virus vaccine, inactivated, Patient Refuses Allergies No Known Allergies No Known Medication Allergies Problems Ongoing - Any problem that you are currently receiving treatment for. Abdominal cramping ASCVD (arteriosclerotic cardiovascular disease) Asthma BMI 21.0-21.9, adult Chest pain Dizziness H/O: hysterectomy Hypokalemia Irritable bowel syndrome with constipation Knee pain, right Left knee pain Lower abdominal pain Lung nodule Non-smoker Osteoporosis Pelvic floor dysfunction Peripheral arterial disease Primary hypertension Right knee pain Shortness of breath Stress Syncope Toe pain, bilateral Patient Survey You may receive a survey via text or e-mail asking about your office visit. Please share your experience with us by completing your survey. We appreciate your feedback and thank you for choosing us for your care. Nataliia [facility] Gastroenterology Office/Clin ic Noteon 05-19-2024 Gastroenterology Office/Clinic Note Gastroenterology Office/Clinic Note Chief Complaint 3 month follow up HPI Staff This is a 79 year old female who presents today for a 3 month follow up. Last visit w/ Dr Matthews History of Present Illness pt with diarrhea rifaximin was too expensive about 5 BMs a day most of it is loose Pt still with dizzy spells Assessment/Plan 1. Irritable bowel syndrome with constipation (K58.1: Irritable bowel syndrome with constipation) 2. Pelvic floor dysfunction (M62.89: Other specified disorders of muscle) Start Viberzi 75 mg twice daily If it does not work or is not approved, will treat with an antibiotic for IBS diarrhea or with neuromodulator Rifaximin was not approved by insurance but might consider giving her samples through the office History of Present Illness I have reviewed HPI staff note, most recent labs and imaging, more than 30 minutes spent reviewing the chart, during encounter, placing orders and counseling the patient. PT is doing well some pain in the lower abd did not last long comes few times a day for 3 weeks not on any medication for bowels Review of Systems All systems reviewed, negative except as mentioned above Physical Exam Vitals & Measurements HR: 80(Peripheral) RR: 16 BP: 163/88 HT: 62 in HT: 158 cm WT: 50.7 kg WT: 111.54 lb BMI: 20.31 General: alert, no acute distress HEENT: atraumatic normocephalic Cardiovascular: regular rate and rhythm, normal peripheral perfusion Respiratory: Lungs CTA, respirations non labored Extremities: no deformity, no trauma Abdomen: Benign, soft, tender nondistended Assessment/Plan 1. Irritable bowel syndrome with constipation (K58.1: Irritable bowel syndrome with constipation) 2. Pelvic floor dysfunction (M62.89: Other specified disorders of muscle) 3. Lower abdominal pain (R10.30: Lower abdominal pain, unspecified) 4. H/O: hysterectomy (Z90.710: Acquired absence of both cervix and uterus) Advised to get squatty potty and massage the colon Advised to use MiraLAX/senna and titrate to have 1-2 bowel movements every day Advised to start probiotics once a day Follow-up No qualifying data available Problem List/Past Medical History Ongoing Abdominal cramping ASCVD (arteriosclerotic cardiovascular disease) Asthma BMI 21.0-21.9, adult Chest pain Dizziness H/O: hysterectomy Hypokalemia Irritable bowel syndrome with constipation Knee pain, right Left knee pain Lower abdominal pain Lung nodule Non-smoker Osteoporosis Pelvic floor dysfunction Peripheral arterial disease Primary hypertension Right knee pain Shortness of breath Stress Syncope Toe pain, bilateral Historical No qualifying data Procedure/Surgical History Colonoscopy (10/01/2021), Dilatation and curettage: routine. Medications Albuterol (Eqv-ProAir HFA) 90 mcg/inh inhalation aerosol, 180 mcg= 2 puff(s), Inhalation, q6hr amoxicillin, 2000 mg, Oral, Once, PRN Benefiber, See Instructions Breo Ellipta 200 mcg-25 mcg/inh inhalation powder, 1 puff(s), Inhalation, Daily, 6 refills Breo Ellipta 200 mcg-25 mcg/inh inhalation powder Caltrate, Oral, Daily CoQ10 100 mg oral capsule Lina-C, Oral, Daily hydrochlorothiazide- lisinopril 12.5 mg-10 mg Tab, See Instructions hydrOXYzine hydrochloride 10 mg Tab, See Instructions Lutein, Oral, Daily Rutledge-3 Fish Oil, Oral, TID Allergies No Known Allergies No Known Medication Allergies Social History Alcohol Household alcohol concerns: No., 07/23/2023 Tobacco Never (less than 100 in lifetime) Tobacco Use:., 05/19/2024 Never (less than 100 in lifetime) Tobacco Use:. Never Smokeless Tobacco Use:., 04/20/2024 Never (less than 100 in lifetime) Tobacco Use:., 02/18/2024 Never (less than 100 in lifetime) Tobacco Use:., 02/04/2024 Family History Family history is negative Immunizations Vaccine Date Status Comments influenza virus vaccine, inactivated - Not Given Patient Refuses influenza virus vaccine, inactivated 06/23/2023 Recorded pneumococcal 20-valent conjugate vaccine 11/20/2022 Recorded influenza [...] vaccine 08/10/2015 Recorded zoster vaccine live 06/07/2015 (more content not included)... [facility] Comment on above: Result Comment: Elec tronically Signed By: Byron DOS SANTOS, Dung Lovell.nidhi\Date and Time Signed: 05/19/24 12:53 EDT MICKTammy 04-22-2024 THOMAS Telephone ([facility]) DKDORIE THAKKAR ([id number]) 1945 F Date Time Provider Department 04/22/24 XANDER HOOKER [facility] During your visit today, we recorded the following information about you: Xander Hooker MD 04/22/2024 2:49 PM Signed called - concerned about progressive cognition issues - particularly memory. Recommended to see Geriatrics. Consult order placed. Allergies As of Date: 04/22/2024 (No Known Allergies) Date Reviewed: 10/09/2023 Reviewed by: Celeste Roque LPN - Fully Assessed Reason for Visit: Memory Loss [66] Primary Visit Diagnosis:Cognitive changes [R41.89] Order(s):CONSULT TO GERIATRICS [9012] Order #: [id number]: 1 FUTURE Prescriptions as of 04/22/2024 - topiramate (TOPAMAX) 50 mg tablet Take 1 tablet by mouth daily at bedtime. - BENEFIBER, GUAR GUM, ORAL Take by mouth. - Coenzyme R47-Qawlmpa E 100-5 mg-unit cap 2 gels Orally - LUTEIN-ZEAXANTHIN ORAL Take by mouth. - cyanocobalamin, vitamin B-12, (VITAMIN B-12) 5,000 mcg subl Dissolve under the tongue. - fsh/flx/prim/cur/bor /om3,6,9 5 (OMEGA 3-6-9 FATTY ACIDS ORAL) Take by mouth. - Ascorbic Acid (VITAMIN C) 1,000 mg tablet Take 1,000 mg by mouth once daily. - lisinopril (PRINIVIL) 10 mg tablet Take 10 mg by mouth once daily. - ALBUTEROL 90 MCG/ACTUATION AEROSOL INHALER as needed Facility-Administere d Medications as of 04/22/2024 - perflutren lipid microspheres 1.3 mL in NaCl (PF) 0.9% 10 mL injection (DEFINITY) - sodium chloride 0.9 % (flush) 10 mL (BD POSIFLUSH) Problem List As Of Date: 04/22/2024 (None) Medications Discontinued During This Encounter Prescriptions - budesonide-formotero l (SYMBICORT) 80-4.5 mcg/actuation inhaler (Discontinued) Inhale 2 Puffs as instructed twice daily. - calcium carbonate/vitamin D3 (CALTRATE-600 PLUS VITAMIN D3 ORAL) (Discontinued) Take by mouth. - FOSAMAX 70 MG TAB (Discontinued) weekly Encounter Status:Closed by XANDER HOOKER MD on 04/22/24 Normal [facility] Office/Clini c Noteon 04-20-2024 Family Medicine Office/Clinic Note Family Medicine Office/Clinic Note HPI Staff Dorie is an 78 year old female presenting for 3 month follow up htn, stress Patient is here for follow up on hypertension. How often are you checking your blood pressure? Doesnt check BP at home What are your average readings? N/A, Not checking at home Yearly BMP: 12/15/23 RONI: 8 questions/concerns: both arms looked like their bruised up, wonders what is causing this History of Present Illness See staff HPI. Patient is complaining of dizziness with for which she has had on and off for 3 years. Patient has not found a solution for this. Patient also has some bruising on her arms. They are resolving normally. Patient would like workup if these do not resolve. Patient is having toe pain. Podiatry did not address this. Asking for pain meds. Review of Systems PHQ Score Initial Depression Screen Score: 1 SCORE Physical Exam Vitals & Measurements T: 36.7 ?C(Temporal Artery) HR: 70(Peripheral) RR: 16 BP: 138/72 SpO2: 97% HT: 62 in HT: 158 cm WT: 51.2 kg WT: 112.64 lb BMI: 20.51 General: alert, no acute distress ENMT: oral mucosa moist, Cardiovascular: regular rate and rhythm, normal peripheral perfusion Respiratory: Lungs CTA, respirations non labored Extremities: no deformity, no trauma minimal bruising noted. In multiple stages of healing. Neurological: oriented x 4, LOC appropriate for age, CN II-XII intact, motor strength equal & normal bilaterally, speech normal Abdomen: Soft, Nontender, Non-distended, + BS Assessment/Plan 1. Primary hypertension (I10: Essential (primary) hypertension) At goal today. Continue taking medication as before. Ordered: methylPREDNISolone, = 1 packet(s), Oral, As Directed, as directed on package labeling, X 6 day(s), # 21 tab(s), Refills(s) 0, Pharmacy: [facility]/pharmacy #[id number], 158, cm, 04/20/24 14:37:00 EDT, Height/Length Dosing, 51.2, kg, 04/20/24 14:37:00 EDT, Weight Dosing 2. Stress (F43.9: Reaction to severe stress, unspecified) Well-controlled at this time. Ordered: methylPREDNISolone, = 1 packet(s), Oral, As Directed, as directed on package labeling, X 6 day(s), # 21 tab(s), Refills(s) 0, Pharmacy: [facility]/pharmacy #[id number], 158, cm, 04/20/24 14:37:00 EDT, Height/Length Dosing, 51.2, kg, 04/20/24 14:37:00 EDT, Weight Dosing 3. ASCVD (arteriosclerotic cardiovascular disease) (I25.10: Atherosclerotic heart disease of [place] coronary artery without angina pectoris) Denies chest pain at this time. Ordered: methylPREDNISolone, = 1 packet(s), Oral, As Directed, as directed on package labeling, X 6 day(s), # 21 tab(s), Refills(s) 0, Pharmacy: [facility]/pharmacy #[id number], 158, cm, 04/20/24 14:37:00 EDT, Height/Length Dosing, 51.2, kg, 04/20/24 14:37:00 EDT, Weight Dosing 4. Hypokalemia (E87.6: Hypokalemia) Resolved Ordered: methylPREDNISolone, = 1 packet(s), Oral, As Directed, as directed on package labeling, X 6 day(s), # 21 tab(s), Refills(s) 0, Pharmacy: [facility]/pharmacy #[id number], 158, cm, 04/20/24 14:37:00 EDT, Height/Length Dosing, 51.2, kg, 04/20/24 14:37:00 EDT, Weight Dosing 5. Irritable bowel syndrome with constipation (K58.1: Irritable bowel syndrome with constipation) Doing well with Linzess. No concerns. Ordered: methylPREDNISolone, = 1 packet(s), Oral, As Directed, as directed on package labeling, X 6 day(s), # 21 tab(s), Refills(s) 0, [id number], 158, cm, 04/20/24 14:37:00 EDT, Height/Length Dosing, 51.2, kg, 04/20/24 14:37:00 EDT, Weight Dosing 6. Toe pain, bilateral (M79.674: Pain in right toe(s)) Will do Medrol Dosepak at this time. Ordered: methylPREDNISolone, = 1 packet(s), Oral, As Directed, as directed on package labeling, X 6 day(s), # 21 tab(s), Refills(s) 0, [id number], 158, cm, 04/20/24 14:37:00 EDT, Height/Length Dosing, 51.2, kg, 04/20/24 14:37:00 EDT, Weight Dosing 7. Dizziness (R42: Dizziness and giddiness) Will send to the vestibular clinic for more information. Follow-up No qualifying data available Problem List/Past Medical History Ongoing Abdominal cramping ASCVD (arteriosclerotic cardiovascular disease) Asthma BMI 21.0-21.9, adult Chest pain Dizziness H/O: hysterectomy Hypokalemia Irritable bowel syndrome with constipation Knee pain, right Left knee pain Lung nodule Non-smoker Osteoporosis Pelvic floor dysfunction Peripheral arterial disease Primary hypertension Right knee pain Shortness of breath Stress Syncope Toe pain, bilateral Historical No qualifying data Procedure/Surgical History Colonoscopy (10/01/2021), Dilatation and curettage: routine. Medications Albuterol (Eqv-ProAir HFA) 90 mcg/inh inhalation aerosol, 180 mcg= 2 puff(s), Inhalation, q6hr amoxicillin, 2000 mg, Oral, Once, PRN Benefiber, See Instructions Breo Ellipta 200 mcg-25 mcg/inh inhalation powder, 1 puff(s), Inhalation, Daily, 6 refills Breo Ellipta 200 mcg-25 mcg/inh inhalation powder Caltrate, Oral, Daily CoQ10 100 mg oral capsule Lina (more content not included)... Normal [facility] Comment on above: Result Comment: Elec tronically Signed By: Srinivasan Lezama MD\.br\Date and Time Signed: 04/20/24 14:56 EDT Ambulatory Visit Summaryon 0 03-11-2024 Ambulatory Visit Summary Ambulatory Visit Summary DORIE ROOT :1945 Visit Date:03/11/2024 Ambulatory Visit Instructions Your Diagnosis Non-smoker BMI less than 19,adult Your Care Team Attending Physician - Roxane Barraza Primary Care Physician - Srinivasan Lezama MD This Is Your Medications List albuterol (Albuterol (Eqv-ProAir HFA) 90 mcg/inh inhalation aerosol) amoxicillin ascorbic acid (Lina-C) calcium carbonate (Caltrate) eluxadoline (Viberzi 75 mg oral tablet) fluticasone-vilanter ol (Breo Ellipta 200 mcg-25 mcg/inh inhalation powder) fluticasone-vilanter ol (Breo Ellipta 200 mcg-25 mcg/inh inhalation powder) hydrOXYzine (hydrOXYzine hydrochloride 10 mg Tab) hydrochlorothiazide- lisinopril (hydrochlorothiazide -lisinopril 12.5 mg-10 mg Tab) lutein (Lutein) methylcobalamin (Vitamin B12 Methylcobalamin 5000 mcg sublingual tablet) omega-3 polyunsaturated fatty acids (Rutledge-3 Fish Oil) ubiquinone (CoQ10 100 mg oral capsule) wheat dextrin (Benefiber) Procedures Performed Colonoscopy (10/01/2021), Dilatation and curettage: routine. Discharge Vitals Temperature (Temporal Artery) 36.7 ?C Heart Rate (Peripheral) 70 Respiratory Rate 18 Blood Pressure 122/80 Height 158.0 cm Height 62 in Weight 49.3 kg Weight 108.46 lb BMI 19.75 What to do next Scheduled Follow-Up Appointments Friday 2:15 PM EDT With: Srinivasan Lezama MD Where: [facility] [place] Invalid Interpretation Code [address] [id number]- \.br\ Friday 11:00 AM EST \.br\ With:\.br\ Where: [facility] Family Medicine Office/Clini c Noteon 03-11-2024 Family Medicine Office/Clinic Note Family Medicine Office/Clinic Note HPI Staff Dorie is a 78 year old female presenting with Onset: fell Location: big toes on both feet Duration: since September 02 2023 Characteristics:_sta bbing pain Aggravated by: Relieved by: Ice it this did help Timing:_ does not matter morning or night Associated Symptoms:fatigue Wore a boot from Dr. Mas worford for 6 weeks did seem to help a lot States she is having dizzy spells started several months ago She fell September 02 History of Present Illness pt presents today c/o CHIVO toe and left knee pain Review of Systems PHQ Score Initial Depression Screen Score: 0 SCORE Physical Exam Vitals & Measurements T: 36.7 ?C(Temporal Artery) HR: 70(Peripheral) RR: 18 BP: 122/80 SpO2: 94% HT: 62 in HT: 158.0 cm WT: 49.3 kg WT: 108.46 lb BMI: 19.75 General: alert, no acute distress ENMT: oral mucosa moist, no pharyngeal erythema or exudate Cardiovascular: regular rate and rhythm, normal peripheral perfusion Respiratory: Lungs CTA, respirations non labored Extremities: no deformity, no trauma Neurological: oriented x 4, LOC appropriate for age, CN II-XII intact, motor strength equal & normal bilaterally, speech normal left great toe a little red on the right corner Assessment/Plan 1. Toe pain, bilateral (M79.674: Pain in right toe(s)) both great toes are still runner but improving. she has an appointment with Dr. Mas today. toes joints are not red or warm to touch. left great toe is a little red on the end near toe nail. 2. Left knee pain (M25.562: Pain in left knee) left knee is still a little tender after her fall in September. but she states it is better than it was. 3. Non-smoker (Z78.9: Other specified health status) continue not smoking 4. BMI less than 19,adult (Z68.1: Body mass index [BMI] 19.9 or less, adult) bmi education given Follow-up No qualifying data available Problem List/Past Medical History Ongoing Abdominal cramping ASCVD (arteriosclerotic cardiovascular disease) Asthma BMI 21.0-21.9, adult Chest pain Facial laceration Foot fracture, right H/O: hysterectomy Hypokalemia Irritable bowel syndrome with constipation Irritable bowel syndrome with constipation and diarrhea Knee pain, right Left knee pain Lung nodule Non-smoker Osteoporosis Pelvic floor dysfunction Peripheral arterial disease Primary hypertension Right knee pain Shortness of breath Stress Syncope Toe pain, bilateral Historical No qualifying data Procedure/Surgical History Colonoscopy (10/01/2021), Dilatation and curettage: routine. Medications Albuterol (Eqv-ProAir HFA) 90 mcg/inh inhalation aerosol, 180 mcg= 2 puff(s), Inhalation, q6hr amoxicillin, 2000 mg, Oral, Once, PRN Benefiber, See Instructions Breo Ellipta 200 mcg-25 mcg/inh inhalation powder, 1 puff(s), Inhalation, Daily, 6 refills Breo Ellipta 200 mcg-25 mcg/inh inhalation powder Caltrate, Oral, Daily CoQ10 100 mg oral capsule Lina-C, Oral, Daily hydrochlorothiazide- lisinopril 12.5 mg-10 mg Tab, See Instructions hydrOXYzine hydrochloride 10 mg Tab, See Instructions Lutein, Oral, Daily Rutledge-3 Fish Oil, Oral, TID Viberzi 75 mg oral tablet, 75 mg= 1 tab(s), Oral, BID, 6 refills Vitamin B12 Methylcobalamin 5000 mcg sublingual tablet, 5000 mcg= 1 tab(s), SubLingual, Daily Allergies No Known Allergies No Known Medication Allergies Social History Alcohol Household alcohol concerns: No., 07/23/2023 Tobacco Never (less than 100 in lifetime) Tobacco Use:. Never Smokeless Tobacco Use:., 03/11/2024 Never (less than 100 in lifetime) Tobacco Use:., 02/18/2024 Never (less than 100 in lifetime) Tobacco Use:., 02/04/2024 Family History Family history is negative Immunizations Vaccine Date Status Comments influenza virus vaccine, inactivated 06/23/2023 Recorded pneumococcal 20-valent conjugate vaccine 11/20/2022 Recorded influenza [...] vaccine, inactivated 05/31/2015 Recorded Normal [facility] Comment on above: Result Comment: Elec tronically Signed By: Roxane Barraza\.br\Date and Time Signed: 03/11/24 11:05 EDT Methylmalonate SerPl-sCncon 03-01-2024 Methylmalonate [Moles/Vol] 0.12 umol/L Normal <=0.40 [facility] Comment on above: Order Comment: Speci men Type: BLOOD SPECIMEN Ordering Facility: [facility] Address: [address] [place] [address] Result Comment: This test was developed and its performance characteristics determined by [facility]'s [facility] [place] ([facility]). It has not been cleared or approved by the FDA. [facility] is regulated under CLIA as qualified to perform high-complexity testing. This test is used for clinical purposes. It should not be regarded as investigational or for research. Performed By: #### 1 [id number] #### [facility] CLIA [id number] [address] [place], [place] [address] [address] [place] Vit B12 SerPl-mCncon 024 Cobalamin (Vitamin B12) [Mass/Vol] pg/mL High 232-1245 [facility] Comment on above: Order Comment: Speci men Type: BLOOD SPECIMEN Ordering Facility: [facility] Address: [address] [place] [address] Performed By: #### 2 132-9 #### [facility] CLIA [id number] [facility] [place] [address] [place] Pre-Certification Formon Pre-Certification Form [id number] #1.00TIFF Normal [facility] Ambulatory Visit Summaryon 0 02-18-2024 Ambulatory Visit Summary DORIE ROOT :1945 Visit Date:02/18/2024 Ambulatory Visit Instructions Your Diagnosis Irritable bowel syndrome with constipation Pelvic floor dysfunction Your Care Team Attending Physician - Byron DOS SANTOS, Dung Castaneda Primary Care Physician - Srinivasan Lezama MD This Is Your Medications List eluxadoline (Viberzi 75 mg oral tablet) Contact prescribing physician if questions or concerns albuterol (Albuterol (Eqv-ProAir HFA) 90 mcg/inh inhalation aerosol) amoxicillin ascorbic acid (Lina-C) calcium carbonate (Caltrate) fluticasone-vilanter ol (Breo Ellipta 200 mcg-25 mcg/inh inhalation powder) hydrOXYzine (hydrOXYzine hydrochloride 10 mg Tab) hydrochlorothiazide- lisinopril (hydrochlorothiazide -lisinopril 12.5 mg-10 mg Tab) lutein (Lutein) methylcobalamin (Vitamin B12 Methylcobalamin 5000 mcg sublingual tablet) omega-3 polyunsaturated fatty acids (Rutledge-3 Fish Oil) ubiquinone (CoQ10 100 mg oral capsule) wheat dextrin (Benefiber) Procedures Performed Colonoscopy (10/01/2021), Dilatation and curettage: routine. Discharge Vitals Heart Rate (Peripheral) 58 Respiratory Rate 16 Blood Pressure 157/82 Height 158 cm Height 62 in Weight 49 kg Weight 107.8 lb BMI 19.63 What to do next Scheduled Follow-Up Appointments Friday 2:15 PM EDT With: Srinivasan Lezama MD Where: [facility] [place] Invalid Interpretation Code [address] [id number]- \.br\ Friday 11:00 AM EST \.br\ With:\.br\ Where: [facility] [place] [facility] Gastroenterology Office/Clin ic Noteon 02-18-2024 Gastroenterology Office/Clinic Note Chief Complaint 2 week follow up HPI Staff This is a 78 year old female who presents today for a 2 week follow up. Xifaxan, prescribed at last visit- did she get script?? No, was too expensive. Last Visit w/ Dr Matthews History of Present Illness Pt with altered bowel movements between diarrhea and constipation she might not go for 4 days- mild OTC laxatives could get bad diarrhea friend diagnosed with pancreatic insufficiency more constipation than diarrhea on benefiber x2 times a day hysterectomy 40 years ago Tried prunes and kiwi has not tried squatty potty Tried miralax in the past with beenfiber and caused explosion weight loss of 5-10 pounds Assessment/Plan 1. Irritable bowel syndrome with constipation and diarrhea (K58.2: Mixed irritable bowel syndrome) 2. 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 Pelvic floor dysfunction (M62.89: Other specified disorders of muscle) Advised to get squatty potty and massage the colon Advised to continue to use as needed laxatives Will treat with a course of rifaximin for IBS mixed Will check stool calprotectin, stool elastase, celiac panel, TSH, open parasites, and stool culture She might benefit from anorectal manometry and neuromodulator in the future History of Present Illness I have reviewed HPI staff note, most recent labs and imaging, more than 30 minutes spent reviewing the chart, during encounter, placing orders and counseling the patient. pt with diarrhea rifaximin was too expensive about 5 BMs a day most of it is loose Pt still with dizzy spells Review of Systems All systems reviewed, negative except as mentioned above Physical Exam Vitals & Measurements HR: 58(Peripheral) RR: 16 BP: 157/82 HT: 62 in HT: 158 cm WT: 49 kg WT: 107.8 lb BMI: 19.63 General: alert, no acute distress HEENT: atraumatic normocephalic Cardiovascular: regular rate and rhythm, normal peripheral perfusion Respiratory: Lungs CTA, respirations non labored Extremities: no deformity, no trauma Abdomen: Benign, soft, nontender nondistended Assessment/Plan 1. Irritable bowel syndrome with constipation (K58.1: Irritable bowel syndrome with constipation) Ordered: eluxadoline, 75 mg = 1 tab(s), Oral, BID, # 60 tab(s), Refills(s) 6, Pharmacy: [facility]/pharmacy #[id number], 158, cm, 02/18/24 14:13:00 EDT, Height/Length Dosing, 49, kg, 02/18/24 14:13:00 EDT, Weight Dosing 2. Pelvic floor dysfunction (M62.89: Other specified disorders of muscle) Ordered: eluxadoline, 75 mg = 1 tab(s), Oral, BID, # 60 tab(s), Refills(s) 6, Pharmacy: [facility]/pharmacy #[id number], 158, cm, 02/18/24 14:13:00 EDT, Height/Length Dosing, 49, kg, 02/18/24 14:13:00 EDT, Weight Dosing Orders: rifaximin, 550 mg = 1 tab(s), Oral, TID, X 14 day(s), # 42 tab(s), Refills(s) 0, Pharmacy: [facility], 158, cm, 02/04/24 13:05:00 EDT, Height/Length Dosing, 50.5, kg, 02/04/24 13:05:00 EDT, Weight Dosing Start Viberzi 75 mg twice daily If it does not work or is not approved, will treat with an antibiotic for IBS diarrhea or with neuromodulator Rifaximin was not approved by insurance but might consider giving her samples through the office Follow-up No qualifying data available Problem List/Past Medical History Ongoing Abdominal cramping ASCVD (arteriosclerotic cardiovascular disease) Asthma BMI 21.0-21.9, adult Chest pain Facial laceration Foot fracture, right H/O: hysterectomy Hypokalemia Irritable bowel syndrome with constipation Irritable bowel syndrome with constipation and diarrhea Knee pain, right Lung nodule Non-smoker Osteoporosis Pelvic floor dysfunction Peripheral arterial disease Primary hypertension Shortness of breath Stress Syncope Historical No qualifying data Procedure/Surgical History Colonoscopy (10/01/2021), Dilatation and curettage: routine. Medications Albuterol (Eqv-ProAir HFA) 90 mcg/inh inhalation aerosol, 180 mcg= 2 puff(s), Inhalation, q6hr amoxicillin, 2000 mg, Oral, Once, PRN, Self Directed Benefiber, See Instructions Breo Ellipta 200 mcg-25 mcg/inh inhalation powder, 1 puff(s), Inhalation, Daily, 6 refills Caltrate, Oral, Daily CoQ10 100 mg oral capsule Lina-C, Oral, Daily hydrochlorothiazide- lisinopril 12.5 mg-10 mg Tab, 12.5-10 mg, Oral, Daily hydrOXYzine hydrochloride 10 mg Tab, See Instructions Lutein, Oral, Daily Rutledge-3 Fish Oil, Oral, TID Viberzi 75 mg oral tablet, 75 mg= 1 tab(s), Oral, BID, 6 refills Vitamin B12 Methylcobalamin 5000 mcg sublingual tablet, 5000 mcg= 1 tab(s), SubLingual, Daily Allergies No Known Allergies No Known Medication Allergies Social History Alcohol Household alcohol concerns: No., 07/23/2023 Tobacco Never (less than 100 in lifetime) Tobacco Use:., 02/18/2024 Never (less than 100 in lifetime) Tobacco Use:., 02/04/2024 Never (less than 100 in lifetime) Tobacco Use:. Never Smokeless Tobacco Use:., 01/20/2024 Family History Famil (more content not included)... Normal [facility] Comment on above: Result Comment: Elec tronically Signed By: Byron DOS SANTOS, Dung Castaneda\.br\Date and Time Signed: 02/18/24 14:44 EDT Calprotectin, Fecalon 2023 Calprotectin (Stl) [Mass/Mass] 34 mcg/gm Invalid Interpretation Code 0-120 [facility] Comment on above: Result Comment: Conc entration Interpretation Follow-Up < 5 - 50 ug/g Normal None >50 -120 ug/g Borderline Re-evaluate in 4-6 weeks >120 ug/g Abnormal Repeat as clinically indicated Performed at: [facility] [id number] MD Mark Valerio Performed By: #### 1 [id number] #### [facility] [address] [place] [address] O & P EXAM, ROUTINE, REFLEXo n 02-12-2024 Ova and parasites identified Concentration Nom (Stl) Comment Invalid Interpretation Code [facility] Comment on above: Result Comment: No o va, cysts, or parasites seen. One negative specimen does not rule out the possibility of a parasitic infection. Performed at: [address] [id number] PhD Damaso Morris Performed By: #### 3 [id number] #### [facility] [address] [place] [address] O & P Exam, Routineon 2023 Ova and parasites identified LM Nom (Unsp spec) Final report Invalid Interpretation Code [facility] Comment on above: Result Comment: Thes e results were obtained using wet preparation(s) and trichrome stained smear. This test does not include testing for Cryptosporidium parvum, Cyclospora, or Microsporidia. Performed at: [address] [id number] PhD Damaso Morris Performed By: #### 1 [id number] #### [facility] [address] [place] [address] Pancreatic Elastase, Fecalon 02-12-2024 Elastase.pancreatic (Stl) [Mass/Mass] >800 Invalid Interpretation Code >200 [facility] Comment on above: Result Comment: Hannah re Pancreatic Insufficiency: <100 Moderate Pancreatic Insufficiency: 100 - 200 Normal: >200 Performed at: [facility] [address], [place] [id number] MD Mark Valerio Performed By: #### 1 [id number] #### [facility] [address] [place] [address] Pre-Certification Formon Pre-Certification Form [id number] 1.00TIFF Normal [facility] Celiac Disease Comprehensive on 02-06-2024 Endomysium IgA Ql (S) Negative Invalid Interpretation Code Negative [facility] Comment on above: Performed By: #### 1 [id number] #### [facility] [address] [place] [address] Gliadin peptide IgA Qn (S) 3 unit(s) Invalid Interpretation Code 0-19 [facility] Comment on above: Result Comment: Nega tive 0 - 19 Weak Positive 20 - 30 Moderate to Strong Positive >30 Performed By: #### 1 [id number] #### [facility] [address] [place] [address] Gliadin peptide IgG Qn (S) 2 unit(s) Invalid Interpretation Code 0-19 [facility] Comment on above: Result Comment: Nega tive 0 - 19 Weak Positive 20 - 30 Moderate to Strong Positive >30 Performed By: #### 1 [id number] #### [facility] [address] [place] [address] IgA [Mass/Vol] 151 mg/dL Invalid Interpretation Code 64-422 [facility] Comment on above: Result Comment: Perf ormed at: [facility] [address] [id number] PhD Damaso Morris Performed By: #### 1 [id number] #### [facility] [address] [place] [address] tTG IgA Qn (S) <2 Invalid Interpretation Code 0-3 [facility] Comment on above: Result Comment: Nega tive 0 - 3 Weak Positive 4 - 10 Positive >10 Tissue Transglutaminase (tTG) has been identified as the endomysial antigen. Studies have demonstr- ated that endomysial IgA antibodies have over 99% specificity for gluten sensitive enteropathy. Performed By: #### 1 [id number] #### [facility] [address] [place] [address] tTG IgG Qn (S) <2 Invalid Interpretation Code 0-5 [facility] Comment on above: Result Comment: Nega tive 0 - 5 Weak Positive 6 - 9 Positive >9 Performed By: #### 1 [id number] #### [facility] [address] [place] [address] Enteric Panel by PCRon 02-04 C. coli+jejuni+upsalien sis DNA STEFANI+non-probe Ql (Stl) Not detected Normal [facility] Comment on above: Result Comment: Test ing was performed utilizing reverse architect manager (RT), polymerase chain reaction (PCR), and array hybridization to detect specific gastrointestinal microbial nucleic acid gene sequences associated with the following pathogenic bacteria and viruses:Campylobacter Group (composed of C. coli, C. jejuni, and C. rizwan), Salmonella species, Shigella species (including S. dysenteriae, S. boydii, S. sonnei and S. flexneri), Vibrio Group (composed of V. cholera and V. parahaemolyticus), Yersinia enterocolitica, Norovirus GI/GII, and Rotavirus A. In addition, EPdetects Shiga toxin 1 gene and Shiga toxin 2 gene virulence markers. Shiga toxin producing E. coli (STEC) typically harbor one or both genes that encode for Shiga toxins 1 and 2. Campylobacter group, Salmonella species, Shigella species, Vibrio group, Rotavirus A, Shiga Toxin 1, Shiga Toxin 2, Norovirus GI/GII, and Yersinia enterocolitica were tested by Verigene nulcleic acid test. Performed By: #### 1 [id number] #### [facility] [address] [place] [address] E. coli stx1+stx2 genes STEFANI+non-probe Ql (Stl) Negative Normal [facility] Comment on above: Performed By: #### 1 [id number] #### [facility] [address] [place] [address] Enteric Panel by PCR Negative Normal [facility] Enteric Panel Intrl QC Pass Normal [facility] Comment on above: Result Comment: Test ing was performed utilizing reverse architect manager (RT), polymerase chain reaction (PCR), and array hybridization to detect specific gastrointestinal microbial nucleic acid gene sequences associated with the following pathogenic bacteria and viruses:Campylobacter Group (composed of C. coli, C. jejuni, and C. rizwan), Salmonella species, Shigella species (including S. dysenteriae, S. boydii, S. sonnei and S. flexneri), Vibrio Group (composed of V. cholera and V. parahaemolyticus), Yersinia enterocolitica, Norovirus GI/GII, and Rotavirus A. In addition, EPdetects Shiga toxin 1 gene and Shiga toxin 2 gene virulence markers. Shiga toxin producing E. coli (STEC) typically harbor one or both genes that encode for Shiga toxins 1 and 2. Performed By: #### 1 [id number] #### [facility] [address] [place] [address] Norovirus genogroup I+II RNA STEFANI+non-probe Ql (Stl) Not detected Normal [facility] Comment on above: Performed By: #### 1 [id number] #### [facility] [address] [place] [address] Rotavirus A RNA STEFANI+non-probe Ql (Stl) Not detected Normal [facility] Comment on above: Performed By: #### 1 [id number] #### [facility] [address] [id number] S. enterica+bongori DNA STEFANI+non-probe Ql (Stl) Not detected Normal [facility] Comment on above: Result Comment: This test result should be correlated with clinical presentations and medical history by a healthcare provider to determine its clinical significance. Performed By: #### 1 [id number] #### [facility] [address] [place] [address] Shigella species+EIEC invasion plasmid antigen H ipaH gene STEFANI+non-probe Ql (Stl) Not detected Normal [facility] Comment on above: Performed By: #### 1 [id number] #### [facility] [address] [place] [address] V. cholerae+parahaemoly ticus+vulnificus DNA STEFANI+non-probe Ql (Stl) Not detected Normal [facility] Comment on above: Performed By: #### 1 [id number] #### [facility] [address] [place] [address] Y. enterocolitica DNA STEFANI+non-probe Ql (Stl) Not detected Normal [facility] Comment on above: Performed By: #### 1 [id number] #### [facility] [address] [place] [address] Fecal WBC Lactoferrinon Lactoferrin Ql (Stl) Negative Normal Negative Fish er [facility] Comment on above: Result Comment: The semi-quantitative detection of elevated levels of fecal lactoferrin is a marker for fecal leukocytes and an indication of intestinal inflammation. Performed By: #### 3 [id number] #### [facility] [address] [place] [address] CHEMISTRYOrdered By: SYSTEM SYSTEM on 02-04-2024 TSH Qn 2.32 m[IU]/L Normal 0.34 - 5.60 mcIU/mL Remisol Chem Consent for Treatmenton Consent for Treatment [id number] #1.00TIFF Normal [facility] Gastroenterology Office/Clin ic Noteon 02-04-2024 Gastroenterology Office/Clinic Note Chief Complaint constipation and [id number] HPI Staff This is a 78 year old female who presents today for complaints of constipation and episodes of incontinence. diarrhea, associated with abdominal pain. XR Abdomen: 12/15/2023 IMPRESSION: NO ACUTE OR SIGNIFICANT INTRA-ABDOMINAL PROCESS IDENTIFIED, BY PLAIN RADIOGRAPHY. MICK Tuttle Assessment/Plan: 12/15/2023 1. Irritable bowel syndrome with constipation (K58.1: Irritable bowel syndrome with constipation) Is currently having 2-3 BMs a week that are mostly small in size however, on rare occasions will have 6 BMs in a day that start out formed and then progress to looser stool. Is currently taking benefiber 2 gummies at bedtime, miralax as needed. Review of outside record indicates patient had previous colonoscopy at [facility] 09/07/2021 that revealed diverticulosis, hemorrhoids, random colon biopsies taken that revealed lymphoid aggregate and no other significant pathologic findings. Educated to drink 3-4 liters of water daily, increase fiber to 4 gummies daily, miralax 1 capful daily, eat pineapple fruit daily. Ordered TSH. Discussed colonoscopy- patient reports she would like to try medications first prior to proceeding with colonoscopy. Ordered: Thyroid Stimulating Hormone 2. Abdominal cramping (R10.9: Unspecified abdominal pain) Is having abdominal cramping that travels throughout abdomen, occurring 1 time a week. Review of outside record indicates patient had previous colonoscopy at [facility] 09/07/2021 that revealed diverticulosis, hemorrhoids, random colon biopsies taken that revealed lymphoid aggregate and no other significant pathologic findings. Educated to drink 3-4 liters of water daily, increase fiber to 4 gummies daily, miralax 1 capful daily, eat pineapple fruit daily. Possibly related to constipation- ordered X-ray of abdomen to further evaluate. Ordered CBC/CMP. Ordered: CBC w/ Auto Diff Comprehensive Metabolic Panel XR Abdomen 2 Views Laboratory Results CBC CMP Basophil Absolute: 0 E9/L (12/15/23) A/G Ratio: 1.8 (12/15/23) Basophil Auto: 0.4 % (12/15/23) AGAP: 15 mEq/L (12/15/23) Eos Absolute: 0.1 E9/L (12/15/23) Albumin Lvl: 4.5 gm/dL (12/15/23) Eos Auto: 1.3 % (12/15/23) Alk Phos: 69 Int._Unit/L (12/15/23) Hct: 44.4 % (12/15/23) ALT: 21 Int._Unit/L (12/15/23) HGB: 14.8 gm/dL (12/15/23) AST: 28 Int._Unit/L (12/15/23) Lymph Absolute: 1.8 E9/L (12/15/23) Bili Total: 0.5 mg/dL (12/15/23) Lymph Auto: 18.9 % (12/15/23) BUN: 16 mg/dL (12/15/23) MCH: 30.3 pg (12/15/23) BUN/Creat Ratio: 20 (12/15/23) MCHC: 33.3 gm/dL (12/15/23) Calcium Lvl: 10.1 mg/dL (12/15/23) MCV: 90.8 fL (12/15/23) Chloride: 101 mmol/L (12/15/23) [place] Absolute: 0.7 E9/L (12/15/23) CO2: 28 mmol/L (12/15/23) [place] Auto: 7.8 % (12/15/23) Creatinine: 0.8 mg/dL (12/15/23) MPV: 7.9 fL (12/15/23) Globulin: 2.5 gm/dL (12/15/23) Neutro Absolute: 6.7 E9/L (12/15/23) Glucose Lvl: 90 mg/dL (12/15/23) Neutro Auto: 71.6 % (12/15/23) Potassium Lvl: 3.6 mmol/L (12/15/23) Platelet: 292 E9/L (12/15/23) Sodium Lvl: 140 mmol/L (12/15/23) RBC: 4.9 E12/L (12/15/23) Total Protein: 7 gm/dL (12/15/23) RDW: 13.9 % (12/15/23) WBC: 9.3 E9/L (12/15/23) History of Present Illness I have reviewed HPI staff note, most recent labs and imaging, more than 30 minutes spent reviewing the chart, during encounter, placing orders and counseling the patient. Pt with altered bowel movements between diarrhea and constipation she might not go for 4 days- mild OTC laxatives could get bad diarrhea friend diagnosed with pancreatic insufficiency more constipation than diarrhea on benefiber x2 times a day hysterectomy 40 years ago Tried prunes and kiwi has not tried squatty potty Tried miralax in the past with beenfiber and caused explosion weight loss of 5-10 pounds Review of Systems All systems reviewed, negative except as mentioned above Physical Exam Vitals & Measurements HR: 59(Peripheral) RR: 16 BP: 160/85 HT: 62 in HT: 158 cm WT: 50.5 kg WT: 111.1 lb BMI: 20.23 General: alert, no acute distress HEENT: atraumatic normocephalic Cardiovascular: regular rate and rhythm, normal peripheral perfusion Respiratory: Lungs CTA, respirations non labored Extremities: no deformity, no trauma Abdomen: Benign, soft, nontender nondistended Assessment/Plan 1. Irritable bowel syndrome with constipation and diarrhea (K58.2: Mixed irritable bowel syndrome) 2. 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 Pelvic floor dysfunction (M62.89: Other specified disorders of muscle) Orders: Calprotectin, Fecal Celiac Disease Comprehensive Enteric Panel by PCR Fecal WBC Lactoferrin O & P Exam, Routine Pancreatic Elastase, Fecal Thyroid Stimulating Hormone Advised to get squatty potty and massage the colon Advised to continue to use as needed laxatives Will treat with a course of rifaxim (more content not included)... Normal [facility] Comment on above: Result Comment: Elec tronically Signed By: Byron DOS SANTOS, Dung Castaneda\.br\Date and Time Signed: 02/04/24 13:41 EDT TSHon 02-04-2024 TSH Qn 2.32 m[IU]/L Normal 0.34-5.60 [facility] Comment on above: Performed By: #### 2 [id number] #### [facility] [address] [place] [address] Ambulatory Visit Summaryon 0 01-20-2024 Ambulatory Visit Summary DORIE ROOT :1945 Visit Date:01/20/2024 Ambulatory Visit Instructions Your Diagnosis Primary hypertension Stress Knee pain, right BMI 21.0-21.9, adult Irritable bowel syndrome with constipation Nonsmoker Your Care Team Attending Physician - Srinivasan Lezama MD Primary Care Physician - Srinivasan Lezama MD This Is Your Medications List hydrochlorothiazide- lisinopril (hydrochlorothiazide -lisinopril 12.5 mg-10 mg Tab) Contact prescribing physician if questions or concerns albuterol (Albuterol (Eqv-ProAir HFA) 90 mcg/inh inhalation aerosol) amoxicillin ascorbic acid (Lina-C) calcium carbonate (Caltrate) fluticasone-vilanter ol (Breo Ellipta 200 mcg-25 mcg/inh inhalation powder) hydrOXYzine (hydrOXYzine hydrochloride 10 mg Tab) lutein (Lutein) methylcobalamin (Vitamin B12 Methylcobalamin 5000 mcg sublingual tablet) omega-3 polyunsaturated fatty acids (Rutledge-3 Fish Oil) polyethylene glycol 3350 (MiraLax) ubiquinone (CoQ10 100 mg oral capsule) wheat dextrin (Benefiber) [Image Removed: STOP]Stop taking these medications albuterol (Albuterol (Eqv-ProAir HFA) 90 mcg/inh inhalation aerosol) Procedures Performed Colonoscopy (10/01/2021), Dilatation and curettage: routine. Discharge Vitals Temperature (Temporal Artery) 36.7 ?C Heart Rate (Peripheral) 64 Respiratory Rate 16 Blood Pressure 116/68 Height 158.0 cm Height 62 in Weight 50.8 kg Weight 111.76 lb BMI 20.35 What to do next Scheduled Follow-Up Appointments Friday 2:15 PM EDT With: Lise DOS SANTOS, Srinivasan Milligan Where: [facility] [place] Normal [address] [id number]- \.br\ Medications\.br\ What How Much When Why Instructions\.br\ Changed hydrochlorothiazi de-lisinopril (hydrochlorothiaz rome-lisinopril 12.5 mg-10 mg Tab) 12.5-10 mg By Mouth Every day Pickup at [facility]/pharmacy #[id number]\.br\ Unchanged albuterol (Albuterol (Eqv-ProAir HFA) 90 mcg/ inh inhalation aerosol) 2 Puffs Inhalation Every 6 hours Contact prescribing physician if questions or concerns \.br\ Unchanged amoxicillin 2,000 Milligram By Mouth Once as needed for Other (see comment) 30 to 60 minutes prior to dental procedure Contact prescribing physician if questions or concerns \.br\ Unchanged ascorbic acid (Lina-C) By Mouth Every day Contact prescribing physician if questions or concerns \.br\ Unchanged calcium carbonate (Caltrate) By Mouth Every day Contact prescribing physician if questions or concerns \.br\ Unchanged fluticasone-vilan terol (Breo Ellipta 200 mcg-25 mcg/ inh inhalation powder) 1 Puffs Inhalation Every day Lung nodule Contact prescribing physician if questions or concerns \.br\ Unchanged hydrOXYzine (hydrOXYzine hydrochloride 10 mg Tab) See instructions TAKE 1 TABLET BY MOUTH 4 TIMES A DAY NEEDED FOR ANXIETY Contact prescribing physician if questions or concerns \.br\ Unchanged lutein (Lutein) By Mouth Every day Contact prescribing physician if questions or concerns \.br\ Unchanged methylcobalamin (Vitamin B12 Methylcobalamin 5000 mcg sublingual tablet) 1 Tablets Sublingual Every day Contact prescribing physician if questions or concerns \.br\ Unchanged omega-3 polyunsaturated fatty acids (Rutledge-3 Fish Oil) By Mouth 3 times a day Contact prescribing physician if questions or concerns \.br\ Unchanged polyethylene glycol 3350 (MiraLax) By Mouth Every day Contact prescribing physician if questions or concerns \.br\ Unchanged ubiquinone (CoQ10 100 mg oral capsule) Contact prescribing physician if questions or concerns \.br\ Unchanged wheat dextrin (Benefiber) See instructions uses guar gum orally by mouth Contact prescribing physician if questions or concerns \.br\ Pharmacy Information\.br\ [facility]/pharmacy #[id number]: [address], [place] [phone]\.br\ \.br\ What How Much When Comments\.br\ Stop Taking albuterol (Albuterol (Eqv-ProAir HFA) 90 mcg/ inh inhalation aerosol) See instructions INHALE 2 PUFFS BY MOUTH EVERY 6 HOURS \.br\ Allergies\.br\ No Known Allergies\.br\ No Known Medication Allergies\.br\ Problems\.br\ Ongoing - Any problem that you are currently receiving treatment for.\.br\ Abdominal cramping\.br\ ASCVD (arteriosclerotic cardiovascular disease)\.br\ Asthma\.br\ BMI 21.0-21.9, adult\.br\ Chest pain\.br\ Facial laceration\.br\ Foot fracture, right\.br\ Hypokalemia\.br\ Irritable bowel syndrome with constipation\.br\ Knee pain, right\.br\ Lung nodule\.br\ Non-smoker\.br\ Osteoporosis\.br\ Peripheral arterial disease\.br\ Primary hypertension\.br\ Shortness of breath\.br\ Stress\.br\ Syncope\.br\ Patient Survey\.br\ You may receive a survey via text or e-mail asking about your office visit. Please share your experience with us by completing your survey. We appreciate your feedback and thank you for choosing us for your care.\.br\ Education Materials\.br\ BMI for Adults\.br\ What is BMI?\.br\ Body mass index (BMI) is a number that is calculated from a person's weight and height. BMI can help estimate how much of a person's weight is composed of fat. BMI does not measure body fat directly. Rather, it is an alternative to procedures that directly measure body fat, which can be difficult and expensive.\.br\ BMI can help identify people who may be at higher risk for certain medical problems.\.br\ What are BMI measurements used for?\.br\ BMI is used as a screening tool to identify possible weight problems. It helps determine whether a person is obese, overweight, a healthy weight, or underweight.\.br\ BMI is useful for:\.br\ ? \.br\ Identifying a weight problem that may be related to a medical condition or may increase the risk for medical problems.\.br\ ? \.br\ Promoting changes, such as changes in diet and exercise, to help reach a healthy weight. BMI screening can be repeated to see if these changes are working.\.br\ How is BMI calculated?\.br\ BMI involves measuring your weight in relation to your height. Both height and weight are measured, and the BMI is calculated from those numbers. This can be done either in [place] or metric measurements. Note that charts and online BMI calculators are available to help you find your BMI quickly and easily without having to do these calculations yourself.\.br\ To calculate your BMI in [place] measurements:\.br \ \.br\ 1. \.br\ Measure your weight in pounds (lb).\.br\ 2. \.br\ Multiply the number of pounds by 703.\.br\ ? \.br\ For example, for a person who weighs 180 lb, multiply that number by 703, which equals 126,540.\.br\ 3. \.br\ Measure your height in inches. Then multiply that number by itself to get a measurement called inches squared. \.br\ ? \.br\ For example, for a person who is 70 inches tall, the inches squared measurement is 70 inches x 70 inches, which equals 4,900 inches squared.\.br\ 4. \.br\ Divide the total from step 2 (number of lb x 703) by the total from step 3 (inches squared): 126,540 ? 4,900 = 25.8. This is your BMI.\.br\ To calculate your BMI in metric measurements:\.br \ 1. \.br\ Measure your weight in kilograms (kg).\.br\ 2. \.br\ Measure your height in meters (m). Then multiply that number by itself to get a measurement called meters squared. \.br\ ? \.br\ For example, for a person who is 1.75 m tall, the meters squared measurement is 1.75 m x 1.75 m, which is equal to 3.1 meters squared.\.br\ 3. \.br\ Divide the number of kilograms (your weight) by the meters squared number. In this example: 70 ? 3.1 = 22.6. This is your BMI.\.br\ What do the results mean?\.br\ BMI charts are used to identify whether you are underweight, normal weight, overweight, or obese. The following guidelines will be used:\.br\ ? \.br\ Underweight: BMI less than 18.5.\.br\ ? \.br\ Normal weight: BMI between 18.5 and 24.9.\.br\ ? \.br\ Overweight: BMI between 25 and 29.9.\.br\ ? \.br\ Obese: BMI of 30 or above.\.br\ Keep these notes in mind:\.br\ ? \.br\ Weight includes both fat and muscle, so someone with a muscular build, such as an athlete, may have a BMI that is higher than 24.9. In cases like these, BMI is not an accurate measure of body fat.\.br\ ? \.br\ To determine if excess body fat is the cause of a BMI of 25 or higher, further assessments may need to be done by a health care provider.\.br\ ? \.br\ BMI is usually interpreted in the same way for men and women.\.br\ Where to find more information\.br\ For more information about BMI, including tools to quickly calculate your BMI, go to these websites:\.br\ ? \.br\ Centers for Disease Control and Prevention: www.cdc.gov\.br\ ? \.br\ [place] [employer]: www.heart.org\.br \ ? \.br\ National Heart, Lung, and [employer]: www.nhlbi.nih.gov \.br\ Summary\.br\ ? \.br\ Body mass index (BMI) is a number that is calculated from a person's weight and height.\.br\ ? \.br\ BMI may help estimate how much of a person's weight is composed of fat. BMI can help identify those who may be at higher risk for certain medical problems.\.br\ ? \.br\ BMI can be measured using [place]hi measurements or metric measurements.\.br \ ? \.br\ BMI charts are used to [facility] Medicine Office/Clini c Noteon 01-20-2024 Family Medicine Office/Clinic Note HPI Staff Dorie is an 78 year old female presenting for 3 month follow up HTN, stress Patient is here for follow up on hypertension. How often are you checking your blood pressure? randomly What are your average readings? doing well Yearly BMP: 12/15/23 RONI: 9 questions/concerns: still gets dizzy spells, doesn't drive very far, afraid to because of the dizzy spells right lower leg below knee, happened 09/02/23 has an area that hurts when she kneels on it otherwise it's fine History of Present Illness - Here for follow up. - Doing well. - Having knee issues. Only pain when she kneels on a certain spot. - She said it came after she fell in September. Review of Systems PHQ Score Initial Depression Screen Score: 1 SCORE Physical Exam Vitals & Measurements T: 36.7 ?C(Temporal Artery) HR: 64(Peripheral) RR: 16 BP: 116/68 SpO2: 98% HT: 62 in HT: 158.0 cm WT: 50.8 kg WT: 111.76 lb BMI: 20.35 General: alert, no acute distress ENMT: oral mucosa moist, Cardiovascular: regular rate and rhythm, normal peripheral perfusion Respiratory: Lungs CTA, respirations non labored Extremities: no deformity, no trauma Neurological: oriented x 4, LOC appropriate for age, CN II-XII intact, motor strength equal & normal bilaterally, speech normal Abdomen: Soft, Nontender, Non-distended, + BS Assessment/Plan 1. Primary hypertension (I10: Essential (primary) hypertension) - At goal - No issues. - Will refill meds as needed - No issues with the meds she is on. 2. Stress (F43.9: Reaction to severe stress, unspecified) - Continue on Hydroxyzine as needed 3. Knee pain, right (M25.561: Pain in right knee) - Will send to Ortho as I am unsure the cause of the pain. - Joint is stable. 4. BMI 21.0-21.9, adult (Z68.21: Body mass index [BMI] 21.0-21.9, adult) - BMI education given. 5. Irritable bowel syndrome with constipation (K58.1: Irritable bowel syndrome with constipation) - Stable with the improvement. - Still with issues now and then. Orders: hydrochlorothiazide- lisinopril, 12.5-10 mg, Oral, Daily, 90 EA, Refill(s) 0, [id number], 158, cm, 01/20/24 13:04:00 EDT, Height/Length Dosing, 50.8, kg, 01/20/24 13:04:00 EDT, Weight Dosing Follow-up No qualifying data available Patient Education BMI for Adults Problem List/Past Medical History Ongoing Abdominal cramping ASCVD (arteriosclerotic cardiovascular disease) Asthma BMI 21.0-21.9, adult Chest pain Facial laceration Foot fracture, right Hypokalemia Irritable bowel syndrome with constipation Knee pain, right Lung nodule Non-smoker Osteoporosis Peripheral arterial disease Primary hypertension Shortness of breath Stress Syncope Historical No qualifying data Procedure/Surgical History Colonoscopy (10/01/2021), Dilatation and curettage: routine. Medications Albuterol (Eqv-ProAir HFA) 90 mcg/inh inhalation aerosol, 180 mcg= 2 puff(s), Inhalation, q6hr amoxicillin, 2000 mg, Oral, Once, PRN, Self Directed Benefiber, See Instructions Breo Ellipta 200 mcg-25 mcg/inh inhalation powder, 1 puff(s), Inhalation, Daily, 6 refills Caltrate, Oral, Daily CoQ10 100 mg oral capsule Lina-C, Oral, Daily hydrochlorothiazide- lisinopril 12.5 mg-10 mg Tab, 12.5-10 mg, Oral, Daily hydrOXYzine hydrochloride 10 mg Tab, See Instructions Lutein, Oral, Daily MiraLax, Oral, Daily Rutledge-3 Fish Oil, Oral, TID Vitamin B12 Methylcobalamin 5000 mcg sublingual tablet, 5000 mcg= 1 tab(s), SubLingual, Daily Allergies No Known Allergies No Known Medication Allergies Social History Alcohol Household alcohol concerns: No., 07/23/2023 Tobacco Never (less than 100 in lifetime) Tobacco Use:. Never Smokeless Tobacco Use:., 01/20/2024 Family History Family history is negative Immunizations Vaccine Date Status Comments influenza virus vaccine, inactivated 06/23/2023 Recorded pneumococcal 20-valent conjugate vaccine 11/20/2022 Recorded influenza [...] vaccine, inactivated 05/31/2015 Recorded Normal Ayoub [facility] Comment on above: Result Comment: Elec tronically Signed By: Lise DOS SANTOS, Srinivasan Milligan\.br\Date and Time Signed: 01/20/24 13:28 EDT Patient Educationon 01-20-20 24 Patient Education Nutrition BMI for Adults What [...] numbers. This can be done either in [place] ([place] or metric measurements. Note that charts and online BMI calculators are available to help you find your BMI quickly and easily without having to do these calculations yourself. To calculate your BMI in [place] ([place] measurements: 1. Measure your weight in [...] for Disease Control and Prevention: www.cdc.gov ? [place] [employer]: www.heart.org ? National Heart, Lung, and Blood [employer]: www.nhlbi.nih.gov Summary ? Body mass index (BMI) is a number that is calculated from a person's weight and height. ? BMI may help estimate how much of a person's weight is composed of fat. BMI can help identify those who may be at higher risk for certain medical problems. ? BMI can be measured using Bangladeshi measurements or metric measurements. ? BMI charts are used to identify whether you are underweight, normal weight, overweight, or obese. This information is not intended to replace advice given to you by your health care provider. Make sure you discuss any questions you have with your health care provider. Document Revised: 05/10/2020 Document Reviewed: 03/17/2020 [employer] Patient Education ? 2022 [employer]. [facility] RAD - MISFormerly [facility] 12-19-2023 [facility] [id number] #1.00TIFF [facility] XR Abdomen 2 Viewson 024 XR Abdomen 2 Views Exam Date/Time: 12/15/2023 16:21 EDT Reason for Exam: K58.1, R10.9;Abdominal pain Report IMPRESSION: NO ACUTE OR SIGNIFICANT INTRA-ABDOMINAL PROCESS IDENTIFIED, BY PLAIN RADIOGRAPHY. EXAM: XR Abdomen 2 Views DATE: 12/15/2023 4:08 PM CLINICAL HISTORY: Abdominal pain, K58.1, R10.9. COMPARISON: None available. TECHNIQUE: Upright and recumbent radiographs of the abdomen and pelvis were obtained. FINDINGS: There is a nonobstructive bowel gas pattern. Mild to moderate stool is noted in the colon and rectum. Small probable atherosclerotic calcifications and phleboliths are noted in the pelvis. There is no evidence of significant constipation, pneumoperitoneum, or other findings of concern identified. The visualized lung bases are clear. Ordering Provider: , FINAL REPORT Dictated: 12/18/2023 2:58 pm Jak Pierce MD Signed (Electronic Signature): 12/18/2023 2:58 pm Signed by: Jak Pierce MD Transcribed by: ROSARIO Technologist: ALVA Technical Comments Radiation Dose: Ka,r in mGy = na DAP = na Normal [facility] Ambulatory Visit Summaryon 0 12-15-2023 Ambulatory Visit Summary DORIE ROOT :1945 Visit Date:12/15/2023 Ambulatory Visit Instructions Your Diagnosis Irritable bowel syndrome with constipation Abdominal cramping Your Care Team Attending Physician - Marry Mazariegos CNP Primary Care Physician - Srinivasan Lezama MD. This Is Your Medications List Contact prescribing physician if questions or concerns albuterol (Albuterol (Eqv-ProAir HFA) 90 mcg/inh inhalation aerosol) amoxicillin ascorbic acid (Lina-C) calcium carbonate (Caltrate) cholestyramine (Prevalite 4 g/5.5 g oral powder for reconstitution) fluticasone-vilanter ol (Breo Ellipta 200 mcg-25 mcg/inh inhalation powder) hydrOXYzine (hydrOXYzine hydrochloride 10 mg Tab) hydrochlorothiazide- lisinopril lutein (Lutein) methylcobalamin (Vitamin B12 Methylcobalamin 5000 mcg sublingual tablet) multivitamin with minerals (Multiple Vitamins with Zinc oral capsule) omega-3 polyunsaturated fatty acids (Rutledge-3 Fish Oil) polyethylene glycol 3350 (MiraLax) topiramate (topiramate 25 mg Tab) ubiquinone (CoQ10 100 mg oral capsule) wheat dextrin (Benefiber) Procedures Performed Colonoscopy (10/01/2021), Dilatation and curettage: routine. Discharge Vitals Temperature (Temporal Artery) 36.4 ?C Heart Rate (Peripheral) 62 Blood Pressure 150/72 Height 62 in Height 158 cm Weight 112.64 lb Weight 51.2 kg BMI 20.51 What to do next Scheduled Follow-Up Appointments Friday 1:40 PM EDT With: Marry Mazariegos CNP Where: [facility] Invalid Interpretation Code [address] [place] [address]- \.br\ Friday 11:00 AM EST \.br\ With:\.br\ Where: [facility] CBC w/ Auto Diffon 4 Basophils/100 WBC (Bld) 0.4 % Normal 0.0-2.0 [facility] Comment on above: Performed By: #### 2 [id number], [id number], 8845674, 6187004 #### [facility] [address] [place] [address]997 Basophils/Leukocytes Auto (Bld) [Pure # fraction] 0.0 E9/L Normal 0.0-0.2 [facility] Comment on above: Performed By: #### 2 140813, [id number], 5537884, 1489411 #### [facility] [address] [place] [address] Eosinophils (Bld) [#/Vol] 0.1 E9/L Normal 0.0-0.5 [facility] Comment on above: Performed By: #### 2 853453, 55756285, 9478455, 8777089 #### [facility] [address] [place] [address] Eosinophils/100 WBC (Bld) 1.3 % Normal 0.0-8.0 [facility] Comment on above: Performed By: #### 2 079069, 33865116, 5088248, 8303030 #### [facility] [address] [place] [address]280 Erythrocyte distribution width (RBC) [Ratio] 13.9 % Normal 10.9-14.2 [facility] Comment on above: Performed By: #### 2 332635, 65014339, 9808188, 3233586 #### [facility] [address] [place] [address] Hematocrit (Bld) [Volume fraction] 44.4 % Normal 34.0-46.0 [facility] Comment on above: Performed By: #### 2 621053, 36454760, 5551873, 9889542 #### [facility] [address] [place] [address] Hemoglobin (Bld) [Mass/Vol] 14.8 g/dL Normal 12.0-16.0 [facility] Comment on above: Performed By: #### 2 748948, 58613605, 6701330, 7509225 #### [facility] [address] [place] [address]43 Lymphocytes (Bld) [#/Vol] 1.8 E9/L Normal 1.0-4.0 [facility] Comment on above: Performed By: #### 2 559064, 62505131, 5430994, 0524928 #### [facility] [address] [place] [address] 73151 Lymphocytes/100 WBC (Bld) 18.9 % Normal 14.0-50.0 [facility] Comment on above: Performed By: #### 2 852194, 54095626, 7171841, 6958594 #### [facility] [address] [place] [address] 45103 MCH (RBC) [Entitic mass] 30.3 pg Normal 27.0-34.0 [facility] Comment on above: Performed By: #### 2 440151, 91715834, 9705771, 7397268 #### [facility] [address] [place] [address] 11805 MCHC (RBC) [Mass/Vol] 33.3 g/dL Normal 31.4-36.0 [facility] Comment on above: Performed By: #### 2 757658, 87236257, 6423875, 9700054 #### [facility] [address] [place] [address] 28306 MCV (RBC) [Entitic vol] 90.8 fL Normal 80.0-100.0 [facility] Comment on above: Performed By: #### 2 170187, 98818169, 2199365, 9637225 #### [facility] [address] [place] [address] 15472 Monocytes (Bld) [#/Vol] 0.7 E9/L Normal 0.2-1.0 [facility] Comment on above: Performed By: #### 2 003901, 47105490, 8419817, 8678329 #### [facility] [address] [place] [address] 74263 Neutrophils (Bld) [#/Vol] 6.7 E9/L Normal 2.0-7.5 [facility] Comment on above: Performed By: #### 2 114875, 71809578, 8386268, 7830764 #### [facility] [address] [place] [address] 53031 Neutrophils/100 WBC (Bld) 71.6 % Normal 36.0-75.0 [facility] Comment on above: Performed By: #### 2 049595, 83030230, 6445142, 0653833 #### [facility] [address] [place] [address] 03569 Platelet mean volume (Bld) [Entitic vol] 7.9 fL Normal 6.4-10.8 [facility] Comment on above: Performed By: #### 2 369290, 53339519, 5720804, 8182210 #### [facility] [address] [place] [address] 93481 Platelets (Bld) [#/Vol] 292.0 E9/L Normal 150.0-500.0 [facility] Comment on above: Performed By: #### 2 550987, 58225045, 1318161, 0012385 #### [facility] [address] [place] [address] 37890 RBC (Bld) [#/Vol] 4.9 E12/L Normal 4.3-5.9 [facility] Comment on above: Performed By: #### 2 300226, 27365623, 5088552, 7525131 #### [facility] [address] [place] [address] WBC corrected for nucl RBC Auto (Bld) [#/Vol] 9.3 E9/L Normal 4.0-11.0 [facility] Comment on above: Performed By: #### 2 438986, 48323560, 0936989, 6538907 #### [facility] [address] [place] [address] CHEMISTRYOrdered By: SYSTEM SYSTEM on 12-15-2023 Albumin [Mass/Vol] 4.5 g/dL Normal 3.3 - 5.0 gm/dL R emisol Chem Albumin/Globulin [Mass ratio] 1.8 {ratio} Normal 1.1 - 2.2 Remisol Chem ALP [Catalytic activity/Vol] 69 [iU]/d Normal 21 - 98 Int._Unit/L Remisol Chem ALT No additional P-5'-P [Catalytic activity/Vol] 21 [iU]/d Normal 6 - 46 Int._Unit/L Remisol Chem Anion gap [Moles/Vol] 15 mmol/L Normal 6 - 16 mEq/L Remisol Chem AST [Catalytic activity/Vol] 28 [iU]/d Normal 5 - 43 Int._Unit/L Remisol Chem Bilirubin [Mass/Vol] 0.5 mg/dL Normal 0.0 - 1.1 mg/dL Remisol Chem Calcium [Mass/Vol] 10.1 mg/dL Normal 8.9 - 11.1 mg/dL Remisol Chem Chloride [Moles/Vol] 101 mmol/L Normal 101 - 111 mmol/ L Remisol Chem CO2 [Moles/Vol] 28 mmol/L Normal 21 - 31 mmol/L Remis ol Chem Creatinine [Mass/Vol] 0.8 mg/dL Normal 0.5 - 1.3 mg/dL Remisol Chem eGFR 74 mL/min/1.73 m2 Normal >=59mL/min /1.73 m2 Remisol Chem Globulin (S) [Mass/Vol] 2.5 g/dL Normal 1.4 - 4.0 gm/dL Remisol Chem Glucose [Mass/Vol] 90 mg/dL Normal 55 - 199 mg/dL Re misol Chem Potassium [Moles/Vol] 3.6 mmol/L Normal 3.5 - 5.3 mmol/L Remisol Chem Protein [Mass/Vol] 7.0 g/dL Normal 6.0 - 7.8 gm/dL R emisol Chem Sodium [Moles/Vol] 140 mmol/L Normal 135 - 145 mmol/L Remisol Chem TSH Qn 3.16 m[IU]/L Normal 0.34 - 5.60 mcIU/mL Remisol Chem Urea nitrogen [Mass/Vol] 16 mg/dL Normal 5 - 21 mg/dL Remisol Chem Urea nitrogen/Creatinine [Mass ratio] 20 mg/mg Normal 10 - 20 Remisol Chem CMPon 12-15-2023 Albumin [Mass/Vol] 4.5 g/dL Normal 3.3-5.0 [facility] Comment on above: Performed By: #### 2 974817, 57482399, 2707854, 9864865 #### [facility] [address] [place] [address] Albumin/Globulin (S) [Mass conc ratio] 1.8 Normal 1.1-2.2 [facility] Comment on above: Performed By: #### 2 333415, 56595486, 3207239, 2125675 #### [facility] [address] [place] [address] ALP [Catalytic activity/Vol] 69 Int._Unit/L Normal 21-98 [facility] Comment on above: Performed By: #### 2 994585, 75078780, 4266157, 8360665 #### [facility] [address] [place] [address] ALT No additional P-5'-P [Catalytic activity/Vol] 21 Int._Unit/L Normal 6-46 [facility] Comment on above: Performed By: #### 2 962310, 75006496, 4141517, 8561136 #### [facility] [address] [place] [address] Anion gap [Moles/Vol] 15 mmol/L Normal 6-16 [facility] Comment on above: Performed By: #### 2 369155, 29382343, 9777348, 7308051 #### [facility] [address] [place] [address] AST [Catalytic activity/Vol] 28 Int._Unit/L Normal 5-43 [facility] Comment on above: Performed By: #### 2 613925, 37262203, 3033281, 4441413 #### [facility] [address] [place] [address] Bilirubin [Mass/Vol] 0.5 mg/dL Normal 0.0-1.1 [facility] Comment on above: Performed By: #### 2 239988, 86834244, 1076187, 7719564 #### [facility] [address] [place] [address] Calcium [Mass/Vol] 10.1 mg/dL Normal 8.9-11.1 [facility] Comment on above: Performed By: #### 2 665962, 69219531, 3122259, 6913182 #### [facility] [address] [place] [address] Chloride [Moles/Vol] 101 mmol/L Normal 101-111 [facility] Comment on above: Performed By: #### 2 334750, 69872924, 2292698, 1273986 #### [facility] [address] [place] [address] CO2 [Moles/Vol] 28 mmol/L Normal 21-31 [facility] Comment on above: Performed By: #### 2 777589, 57381014, 7079663, 1614213 #### [facility] [address] [place] [address] Creatinine [Mass/Vol] 0.8 mg/dL Normal 0.5-1.3 [facility] Comment on above: Performed By: #### 2 832423, 84881092, 6724224, 8226474 #### [facility] [address] [place] [address] Globulin (S) [Mass/Vol] 2.5 g/dL Normal 1.4-4.0 [facility] Comment on above: Performed By: #### 2 578900, 71133702, 4018742, 1079636 #### [facility] [address] [place] [address] Glucose [Mass/Vol] 90 mg/dL Normal 55-199 [facility] Comment on above: Performed By: #### 2 358698, 11680457, 5900631, 3656516 #### [facility] [address] [place] [address] Potassium [Moles/Vol] 3.6 mmol/L Normal 3.5-5.3 [facility] Comment on above: Performed By: #### 2 153110, 69335145, 4035370, 2725116 #### [facility] [address] [place] [address] Protein [Mass/Vol] 7.0 g/dL Normal 6.0-7.8 [facility] Comment on above: Performed By: #### 2 888800, 05798270, 3067894, 3125384 #### [facility] [address] [place] [address] Sodium [Moles/Vol] 140 mmol/L Normal 135-145 [facility] Comment on above: Performed By: #### 2 411547, 58761177, 5924969, 2220092 #### [facility] [address] [place] [address] Urea nitrogen [Mass/Vol] 16 mg/dL Normal 5-21 [facility] Comment on above: Performed By: #### 2 874076, 86914146, 6275351, 6407851 #### [facility] [address] [place] [address] Urea nitrogen/Creatinine [Mass ratio] 20 No Units Normal 10-20 [facility] Comment on above: Performed By: #### 2 787742, 61783106, 5977815, 5050306 #### [facility] [address] [place] [address] Consent for Treatmenton 04- Consent for Treatment [id number] #1.00TIFF Nataliia Ayoub [facility] Gastroenterology Office/Clin ic Noteon 12-15-2023 Gastroenterology Office/Clinic Note Chief Complaint Constipation and diarrhea. HPI Staff This is a 78 year old female who presents today for a follow-up from 10/08/23 office visit. Patient was seen for IBS with constipation. Patient c/o constipation and diarrhea. History of Present Illness Patient is a 78-year-old female who presents for follow-up. Patient was previously evaluated 09/2023 and has history of IBS with constipation. Patient was previously referred by her PCP for further evaluation of IBS with constipation. Patient was previously evaluated by her PCP 08/11/2023 regarding constipation and was taking fiber supplementation that had helped. Note also indicated at times patient would have no bowel movement for 2 days followed by severe abdominal pain. Note also indicated patient was having diarrhea at times. Review of outside record indicates patient had previous colonoscopy at [facility] 09/07/2021 that revealed diverticulosis, hemorrhoids, random colon biopsies taken that revealed lymphoid aggregate and no other significant pathologic findings. Patient reported during visit with me that she had history of IBS with constipation that was diagnosed 2 years ago by her PCP. She reportedly had previous colonoscopy in 2021 that was normal however no record to review and staff have requested regarding record. Patient reported taking 2 Benefiber Gummies daily and as needed use of MiraLAX. She reported in July 2023 she had 1 episode of black stool with hard stool and diarrhea. Patient's reported patient has occasional use of Pepto-Bismol. Patient reported occasional lower abdominal cramping for years prior to having a bowel movement that resolved after and had improved. She also reported she had lost approximately 80 pounds in the last year that have reportedly improved. Patient with noted grade III/ systolic heart murmur?patient was advised to follow-up with PCP regarding. Patient was educated to continue fiber supplementation daily, MiraLAX 1 capful daily as needed, to drink adequate amount of water, and educated regarding 6 ounces of prune juice daily as needed. Patient was advised to follow-up within 3 months to evaluate for improvement in symptoms. During today's visit, patient reports she is having no improvement in symptoms despite taking fiber supplementation and miralax. She explains she is having abdominal cramping that travels throughout abdomen, occurring 1 time a week. Denies abdominal cramping being associated with food. She reports she has lost approximately 5-10 pounds in the last 6 months however, reports she then gains weight back. Is currently having 2-3 BMs a week that are mostly small in size however, on rare occasions will have 6 BMs in a day that start out formed and then progress to looser stool. Is currently taking benefiber 2 gummies at bedtime, miralax as needed. Denies black/bloody stools, nausea/vomiting, fevers/chills, and denies having any other GI complaints. Review of Systems PHQ Score Initial Depression Screen Score: 0 SCORE ROS - Provider Constitutional: no fever, no chills. Skin: no Jaundice. ENMT: Denies dysphagia and heartburn. Respiratory: no shortness of breath. Cardiovascular: no chest pain. Gastrointestinal: no nausea, no vomiting, no diarrhea, no GI bleeding. Physical Exam Vitals & Measurements T: 36.4 ?C(Temporal Artery) HR: 62(Peripheral) BP: 150/72 HT: 62 in HT: 158 cm WT: 51.2 kg WT: 112.64 lb BMI: 20.51 General: Well developed, well nourished, in no acute distress Head: Normocephalic/atraum atic Lungs: Normal respiratory effort and clear to auscultation Cardio: Grade III/ systolic heart murmur, Regular rate and rhythm, normal S1 and S2, no rub Abdomen: Soft, non-distended, non-tender. Normoactive bowel sounds present in all 4 abdominal quadrants, bilaterally. Mental Status: Alert and oriented x3. Normal mood and affect Assessment/Plan 1. Irritable bowel syndrome with constipation (K58.1: Irritable bowel syndrome with constipation) Is currently having 2-3 BMs a week that are mostly small in size however, on rare occasions will have 6 BMs in a day that start out formed and then progress to looser stool. Is currently taking benefiber 2 gummies at bedtime, miralax as needed. Review of outside record indicates patient had previous colonoscopy at [facility] 09/07/2021 that revealed diverticulosis, hemorrhoids, random colon biopsies taken that revealed lymphoid aggregate and no other significant pathologic findings. Educated to drink 3-4 liters of water daily, increase fiber to 4 gummies daily, miralax 1 capful daily, eat pineapple fruit daily. Ordered TSH. Discussed colonoscopy- patient reports she would like to try medications first prior to proceeding with colonoscopy. Ordered: Thyroid Stimulating Hormone XR Abdomen 2 Views 2. Abdominal cramping (R10.9: Unspecified abdominal pain) Is having abdominal cramping that travels throughout abdomen, occurring 1 time a week. Review of outside r (more content not included)... Normal [facility] Comment on above: Result Comment: Elec tronically Signed By: Yair BARTON, Marry Kline\.br\Date and Time Signed: 12/15/23 15:44 EDT HEMATOLOGYOrdered By: SYSTEM SYSTEM on 12-15-2023 Basophils/100 WBC (Bld) 0.4 % Normal 0.0 - 2.0 % Remisol Heme Basophils/Leukocytes Auto (Bld) [Pure # fraction] 0.0 E9/L Normal 0.0 - 0.2 E9/L Remisol Heme Eosinophils (Bld) [#/Vol] 0.1 E9/L Normal 0.0 - 0.5 E9/L Remisol Heme Eosinophils/100 WBC (Bld) 1.3 % Normal 0.0 - 8.0 % Remisol Heme Erythrocyte distribution width (RBC) [Ratio] 13.9 % Normal 10.9 - 14.2 % Remisol Heme Hematocrit (Bld) [Volume fraction] 44.4 % Normal 34.0 - 46.0 % Remisol Heme Hemoglobin (Bld) [Mass/Vol] 14.8 g/dL Normal 12.0 - 16.0 gm/dL Remisol Heme Lymphocytes (Bld) [#/Vol] 1.8 E9/L Normal 1.0 - 4.0 E9/L Remisol Heme Lymphocytes/100 WBC (Bld) 18.9 % Normal 14.0 - 50.0 % Remisol Heme MCH (RBC) [Entitic mass] 30.3 pg Normal 27.0 - 34.0 pg Remisol Heme MCHC (RBC) [Mass/Vol] 33.3 g/dL Normal 31.4 - 36.0 gm/dL Remisol Heme MCV (RBC) [Entitic vol] 90.8 fL Normal 80.0 - 100.0 fL Remisol Heme Monocytes (Bld) [#/Vol] 0.7 E9/L Normal 0.2 - 1.0 E9/L Remisol Heme Monocytes/100 WBC (Bld) 7.8 % Normal 4.0 - 14.0 % Remisol Heme Neutrophils (Bld) [#/Vol] 6.7 E9/L Normal 2.0 - 7.5 E9/L Remisol Heme Neutrophils/100 WBC (Bld) 71.6 % Normal 36.0 - 75.0 % Remisol Heme Platelet mean volume (Bld) [Entitic vol] 7.9 fL Normal 6.4 - 10.8 fL Remisol Heme Platelets (Bld) [#/Vol] 292.0 E9/L Normal 150.0 - 500.0 E9/L Remisol Heme RBC (Bld) [#/Vol] 4.9 E12/L Normal 4.3 - 5.9 E12/L Re misol Heme WBC corrected for nucl RBC Auto (Bld) [#/Vol] 9.3 E9/L Normal 4.0 - 11.0 E9/L Remisol Heme Patient Educationon 12-15-19 Patient Education Gastroenterology Diet for Irritable Bowel [...] care provider if you should take an tadv-qrp-spameee probiotic to help restore healthy bacteria in [...] symptoms worse: ? Fatty foods, such as vincentian fries. ? Foods that contain gluten, such [...] for Functional Gastrointestinal Disorders: [email or web address] ? National Farber of Diabetes and Digestive and Kidney Diseases: [...] provider. Document Revised: 07/30/2022 Document Reviewed: 07/30/2022 [employer] Patient Education ? 2022 [employer] Normal [facility] TSHon 12-15-2023 TSH Qn 3.16 m[IU]/L Normal 0.34-5.60 [facility] Comment on above: Performed By: #### 2 [id number] ####[facility] [address] [place] [address] eGFRon 12-15-2023 eGFR 74 mL/min/1.73 m2 Normal >=59 [facility] Comment on above: Order Comment: Order added by Discern Expert. Performed By: #### 2 [id number] ####[facility] [address] [place] [address] Retail - Clinical Noteon Retail - Clinical Note [id number] #1.00TIFF Normal [facility] CT Chest w/o Contraston CT Chest w/o Contrast Exam Date/Time: 11/05/2023 13:07 EST Reason for Exam: R91.1;Lung nodule Report IMPRESSION: RIGHT LUNG NODULES MEASURING UP TO 6 MM. FOLLOW-UP RECOMMENDED PER FLEISCHNER CRITERIA. EXAM: CT Chest w/o Contrast History: Pulmonary nodule Technique: Multiple contiguous axial images were obtained of the thorax from the thoracic inlet through the upper abdomen without IV contrast. Multiplanar reformats were obtained. Unless otherwise stated, incidental findings identified in this report do not require routine follow-up imaging. Comparison: None available Findings: Visualized portion of the thyroid gland is within normal limits. No axillary, mediastinal, or hilar lymphadenopathy. No thoracic aortic aneurysm. Atherosclerotic calcification of the thoracic aorta. Heart size is within normal limits. No significant pericardial effusion. No coronary artery calcifications noted. Esophagus is within normal limits. 6 mm pleural-based right upper lobe nodule as seen on axial series 3 image 41 5 mm right upper lobe nodule as seen on axial series 3 image 26. Biapical pleural/parenchymal scarring. Scattered areas of pleural thickening of the bilateral lung apices. No consolidation, pleural effusion, or pneumothorax. Visualized upper abdomen demonstrates no acute abnormality. No acute osseous abnormality. All CT scans at this facility use dose modulation, iterative reconstruction, and/or weight based dosing when appropriate to reduce radiation dose to as low as reasonably achievable. Fleischner Society 2017 Guidelines for Management of Incidentally Detected Pulmonary Nodules in Adults Report A: Solid Nodules* Single Low risk <6 mm No routine follow-up 6-[address] at 6-12 months, then consider CT at 18-24 months >[address] at 3 months, PET/CT, or tissue sampling Nodules <6 mm do not require routine follow-up, but certain patients at high risk with suspicious nodule morphology, upper lobe location, or both may warrant 12-month follow-up (recommendation 1A). High risk <[address] at 12 months 6-[address] at 6-12 months, then CT at 18-24 months >[address] at 3 months, PET/CT, or tissue sampling Nodules <6 mm do not require routine follow-up, but certain patients at high risk with suspicious nodule morphology, upper lobe location, or both may warrant 12-month follow-up (recommendation 1A). Multiple Low risk <6 mm No routine follow-up 6-[address] at 3-6 months, then consider CT at 18-24 months >[address] at 3-6 months, then consider CT at 18-24 months Use most suspicious nodule as guide to management. Follow-up intervals may vary according to size and risk (recommendation 2A). High risk <[address] at 12 months 6-[address] at 3-6 months, then at 18-24 months >[address] at 3-6 months, then at 18-24 months Use most suspicious nodule as guide to management. Follow-up intervals may vary according to size and risk (recommendation 2A). B: Subsolid Nodules* Single Ground glass <6 mm No routine follow-up >=[address] at 6-12 months to confirm persistence, then CT every 2 years until 5 years In certain suspicious nodules <6 mm, consider follow-up at 2 and 4 years. If solid component(s) or growth develops, consider resection. (Recommendations 3A and 4A). Part solid <6 mm No routine follow-up >=[address] at 3-6 months to confirm persistence. If unchanged and solid component remains <6 mm, annual CT should be performed for 5 years. In practice, part-solid nodules cannot be defined as such until >=6 mm, and nodules <6 mm do not usually require follow-up. Persistent part-solid nodules with solid components >=6 mm should be considered highly suspicious (recommendations 4A-4C) Multiple <[address] at 3-6 months. If stable, consider CT at 2 and 4 years. >=[address] at 3-6 months. Subsequent management based on the most suspicious nodule(s). Multiple <6 mm pure ground-glass nodules are usually benign, but consider follow-up in selected patients at high risk at 2 and 4 years (recommendation 5A). Note.--These recommendations do not apply to lung cancer screening, patients with Report immunosuppression, or patients with known primary cancer. * Dimensions are average of long and short axes, rounded to the nearest millimeter. Consider all relevant risk factors (see Risk Factors). Ordering Provider: Srinivasan Lezama FINAL REPORT Dictated: 11/06/2023 1:16 pm Wilian Oseguera DO Signed (Electronic Signature): 11/06/2023 1:16 pm Signed by: Wilian Oseguera DO Transcribed by: ROSARIO Technologist: NORMA [facility] Consent for Treatmenton Consent for Treatment [id number] #1.00TIFF [facility] Ambulatory Visit Summaryon 0 10-21-2023 Ambulatory Visit Summary DORIE ROOT :1945 Visit Date:10/21/2023 Ambulatory Visit Instructions Your Diagnosis Primary hypertension BMI 20.0-20.9, adult Nonsmoker Your Care Team Attending Physician - Srinivasan Lezama MD Primary Care Physician - Srinivasan Lezama MD This Is Your Medications List albuterol (Albuterol (Eqv-ProAir HFA) 90 mcg/inh inhalation aerosol) amoxicillin ascorbic acid (Lina-C) budesonide-formotero l (Symbicort 80/4.5 inhalation aerosol with adapter) calcium carbonate (Caltrate) cholestyramine (Prevalite 4 g/5.5 g oral powder for reconstitution) hydrOXYzine (hydrOXYzine hydrochloride 10 mg Tab) hydrochlorothiazide- lisinopril lutein (Lutein) methylcobalamin (Vitamin B12 Methylcobalamin 5000 mcg sublingual tablet) multivitamin with minerals (Multiple Vitamins with Zinc oral capsule) omega-3 polyunsaturated fatty acids (Rutledge-3 Fish Oil) polyethylene glycol 3350 (MiraLax) topiramate (topiramate 25 mg Tab) ubiquinone (CoQ10 100 mg oral capsule) wheat dextrin (Benefiber) Procedures Performed Colonoscopy (10/01/2021), Dilatation and curettage: routine. Discharge Vitals Temperature (Oral) 36.8 ?C Heart Rate (Peripheral) 62 Respiratory Rate 16 Blood Pressure 128/70 Height 158 cm Height 62 in Weight 51.3 kg Weight 112.86 lb BMI 20.55 What to do next Scheduled Follow-Up Appointments Friday 12:20 PM EDT With: Marry Mazariegos CNP Where: [facility] Invalid Interpretation Code [address] [place] [address]- \.br\ Friday 11:00 AM EST \.br\ With:\.br\ Where: [facility] Family Medicine [facility] Medicine Office/Clini c Noteon 10-21-2023 Family Medicine Office/Clinic Note HPI Staff Dorie is a 38 year old female presenting for one month follow up anxiety, HTN Patient is here for follow up on hypertension. How often are you checking your blood pressure? Doesnt check BP at home What are your average readings? N/A, Not checking at home Yearly BMP: 07/31/23 Follow up for Mental Status: Medication adherence- hasn't needed the hydroxyzine for a while now, still has it Medication refill needed: no Suicidal thoughts-Not at this time Most recent RONI: 1 Most recent PHQ: 0 flu: UTD questions/concerns: needs the albuterol inhaler refilled, uses regularly so needs refills on it History of Present Illness Pt states she is doing well. No issues. Bps have been better. Having good BMs Feels well. Anxiety is better. Review of Systems PHQ Score Initial Depression Screen Score: 0 SCORE Physical Exam Vitals & Measurements T: 36.8 ?C(Oral) HR: 62(Peripheral) RR: 16 BP: 128/70 SpO2: 96% HT: 62 in HT: 158 cm WT: 51.3 kg WT: 112.86 lb BMI: 20.55 General: alert, no acute distress ENMT: oral mucosa moist, Cardiovascular: regular rate and rhythm, normal peripheral perfusion Respiratory: Lungs CTA, respirations non labored Extremities: no deformity, no trauma Neurological: oriented x 4, LOC appropriate for age, CN II-XII intact, motor strength equal & normal bilaterally, speech normal Abdomen: Soft, Nontender, Non-distended, + BS Assessment/Plan 1. Primary hypertension (I10: Essential (primary) hypertension) - At goal today. - Follow up PRN Ordered: Body Mass Index (BMI) documented 3008F Current tobacco non-user 1036F Depression Screening Negative 3352F Fall Risk Screen 2 or more w/injury 1100F Influenza immunization administered or previously received 4274F Most recent diastolic blood pressure <80 mm Hg 3078F Systolic BP <130 mm Hg (Most Recent) 3074F 2. BMI 20.0-20.9, adult (Z68.20: Body mass index [BMI] 20.0-20.9, adult) - BMI education given Ordered: Body Mass Index (BMI) documented 3008F Current tobacco non-user 1036F Depression Screening Negative 3352F Fall Risk Screen 2 or more w/injury 1100F Influenza immunization administered or previously received 4274F Most recent diastolic blood pressure <80 mm Hg 3078F Systolic BP <130 mm Hg (Most Recent) 3074F 3. Nonsmoker (Z78.9: Other specified health status) - Please continue to not smoke. Ordered: linaclotide, 72 mcg = 1 cap(s), Oral, Daily, # 90 cap(s), Refills(s) 1, Pharmacy: [id number], 155, cm, 03/25/23 8:03:00 EDT, Height/Length Dosing, 50.1, kg, 03/25/23 8:03:00 EDT, Weight Dosing Body Mass Index (BMI) documented 3008F Current tobacco non-user 1036F Depression Screening Negative 3352F Fall Risk Screen 2 or more w/injury 1100F Influenza immunization administered or previously received 4274F Most recent diastolic blood pressure <80 mm Hg 3078F Systolic BP <130 mm Hg (Most Recent) 3074F 4. Asthma (J45.909: Unspecified asthma, uncomplicated) - Will refill albuterol. - Doing well. 5. Peripheral arterial disease (I73.9: Peripheral vascular disease, unspecified) - No complaints today. - ASA and statins 6. Irritable bowel syndrome with constipation (K58.1: Irritable bowel syndrome with constipation) -Improved - Continue to see GI. Ordered: linaclotide, 72 mcg = 1 cap(s), Oral, Daily, # 90 cap(s), Refills(s) 1, Pharmacy: [id number], 155, cm, 03/25/23 8:03:00 EDT, Height/Length Dosing, 50.1, kg, 03/25/23 8:03:00 EDT, Weight Dosing Orders: albuterol, 180 mcg, 2 puff(s), Inhalation, q6hr, 8.5 gm, Refill(s) 0, [id number], 158, cm, 10/21/23 10:46:00 EST, Height/Length Dosing, 51.3, kg, 10/21/23 10:46:00 EST, Weight Dosing - Follow-up No qualifying data available Problem List/Past Medical History Ongoing ASCVD (arteriosclerotic cardiovascular disease) Asthma BMI 21.0-21.9, adult Chest pain Facial laceration Foot fracture, right Hypokalemia Irritable bowel syndrome with constipation Lung nodule Non-smoker Osteoporosis Peripheral arterial disease Primary hypertension Shortness of breath Stress Syncope Historical No qualifying data Procedure/Surgical History Colonoscopy (10/01/2021), Dilatation and curettage: routine. Medications Albuterol (Eqv-ProAir HFA) 90 mcg/inh inhalation aerosol, 180 mcg= 2 puff(s), Inhalation, q6hr amoxicillin, 2000 mg, Oral, Once, PRN, Self Directed Benefiber, See Instructions Caltrate, Oral, Daily CoQ10 100 mg oral capsule Lina-C, Oral, Daily hydrochlorothiazide- lisinopril, 12.5-10 mg, Oral, Daily hydrOXYzine hydrochloride 10 mg Tab, See Instructions Lutein, Oral, Daily MiraLax, Oral, Daily Multiple Vitamins with Zinc oral capsule, 1 cap(s), Oral, Daily Rutledge-3 Fish Oil, Oral, TID Prevalite 4 g/5.5 g oral powder for reconstitution, 4 gm, Oral, Daily Symbicort 80/4.5 inhalation aerosol with adapter, 2 puff(s), Inhalation, BID topiramate 25 mg Tab, 50 mg= 2 cap(s), O (more content not included)... Normal [facility] Comment on above: Result Comment: Elec tronically Signed By: Lise DOS SANTOS, Srinivasan Lynn.br\Date and Time Signed: 10/21/23 11:23 EST Gastroenterology Office/Clin ic Noteon 10-14-2023 Gastroenterology Office/Clinic Note Chief Complaint Constipation- that sometimes resolves with Miralax and fiber. [facility] Staff Patient is a 78 year old female who was referred by Dr Lezama for IBS with constipation. Patient tried Linzess and that caused uncontrollable diarrhea. Patients last colonoscopy was 09/05/[address] Yanez. Requested report from [facility] [place] [place] medical records. History of Present Illness Patient is a 78-year-old female who presents for referral from her PCP?Dr. Lezama for further evaluation of IBS with constipation. Presents with her today. Patient was previously evaluated by her PCP 08/11/2023 regarding constipation and was taking fiber supplementation that had helped. Note also indicated at times patient would have no bowel movement for 2 days followed by severe abdominal pain. Note also indicated patient was having diarrhea at times. No previous colonoscopy available to review during today's encounter. During today's visit, patient reports hx. IBS with constipation that was diagnosed 2 years ago by her PCP. Reportedly had previous colonoscopy in 2021 that was normal per patient- no record to review- ashley requested record regarding. She explains she is taking 2 Benefiber gummies daily and as needed use of miralax. She explains in July,, she had 1 episode of black stool with multiple BMs at a time with hard stool and diarrhea. Occasional use of pepto-bismol per patient's . She reports rare use of diarrhea. Has occasional lower abdominal cramping for years prior to having a BM that resolves after and has improved. Reports she is drinking more water and is having improvement in her bowels. Has lost approximately 8 pounds in the last year that has reportedly improved. Is currently having 1 formed BM daily. Denies bloody stools, nausea/vomiting, and denies having any other GI complaints. Review of Systems PHQ Score Initial Depression Screen Score: 0 SCORE ROS - Provider Constitutional: no fever, no chills. Skin: no Jaundice. ENMT: Denies dysphagia and heartburn. Respiratory: no shortness of breath. Cardiovascular: no chest pain. Gastrointestinal: no nausea, no vomiting, no diarrhea. Physical Exam Vitals & Measurements T: 36 ?C(Temporal Artery) HR: 61(Peripheral) BP: 164/72 HT: 62 in HT: 158 cm WT: 50.7 kg WT: 111.54 lb BMI: 20.31 General: Well developed, well nourished, in no acute distress Head: Normocephalic/atraum atic Lungs: Normal respiratory effort and clear to auscultation Cardio: Grade III/ systolic heart murmur, Regular rate and rhythm, normal S1 and S2, no rub Abdomen: Soft, non-distended, non-tender. Normoactive bowel sounds present in all 4 abdominal quadrants, bilaterally. Mental Status: Alert and oriented x3. Normal mood and affect Assessment/Plan BP elevated today at 164/72- BP managed by patient's PCP. Educated to follow-up with PCP for BP management- reports she will be seeing her PCP next week. Heart murmur auscultated today- patient reports she has had for years- is to follow-up with PCP regarding. 1. Irritable bowel syndrome with constipation (K58.1: Irritable bowel syndrome with constipation) Diagnosed by another provider. Improved symptoms per patient. Reported having 1 episode of black stool in 07/2023- reportedly takes Pepto-bismol occasionally. Has occasional lower abdominal cramping for years prior to having a BM that resolves after and has improved. Reports she is drinking more water and is having improvement in her bowels. Has lost approximately 8 pounds in the last year that has reportedly improved. Continue fiber supplementation daily, miralax 1 capful daily as needed for constipation, drink 3-4 liters of water daily, and educated to drink 6oz. of prune juice warmed daily as needed. Follow-up With When Contact Information Marry Mazariegos CNP Within 3 months Additional Instructions: Patient Education Diet for Irritable Bowel Syndrome Problem List/Past Medical History Ongoing ASCVD (arteriosclerotic [...] amoxicillin, 2000 mg, Oral, Once, PRN, Self Directed Benefiber, See Instructions, Self Directed Caltrate, Oral, Daily CoQ10 100 mg oral capsule Lina-C, Oral, Daily hydrochlorothiazide- lisinopril, 12.5-10 mg, Oral, Daily hydrOXYzine hydrochloride 10 mg Tab, See Instructions, Not taking Linzess 72 mcg oral capsule, 72 mcg= 1 cap(s), Oral, Daily, 1 refills, Not taking: Caused diarrhea. Lutein, Oral, Daily M (more content not included)... Normal [facility] Comment on above: Result Comment: Elec tronically Signed By: Marry Mazariegos CNP.nidhi\Date and Time Signed: 10/14/23 14:45 EST Holter Monitoron 10-09-2023 Holter Monitor [id number] #1.00TIFF Normal [facility] Patient Educationon 10-08-19 Patient Education Gastroenterology Diet for Irritable Bowel [...] care provider if you should take an knzr-joj-ugxaouw probiotic to help restore healthy bacteria in [...] symptoms worse: ? Fatty foods, such as vincentian fries. ? Foods that contain gluten, such [...] for Functional Gastrointestinal Disorders: [email or web address] ? National [employer] of Diabetes and Digestive and Kidney Diseases: [...] provider. Document Revised: 07/30/2022 Document Reviewed: 07/30/2022 [employer] Patient Education ? 2022 [employer] Normal [facility] Consultation Noteon 10-01-19 Consultation Note [id number] #1.00TIFF [facility] Holter Monitoron 10-01-2023 Holter Monitor [id number] #1.00TIFF [facility] Consultation Noteon 09-25-19 Consultation Note [id number] #1.00TIFF [facility] RAD - MISCon 09-12-2023 RAD - MISC [id number] #1.00TIFF [facility] RAD - MISC [id number] #1.00TIFF [facility] Physician Referralon 024 Physician Referral [id number]#1.00TIFF [facility] Ambulatory Visit Summaryon 0 09-08-2023 Ambulatory Visit Summary DORIE ROOT :1945 Visit Date:09/08/2023 Ambulatory Visit Instructions Your Diagnosis Hospital discharge follow-up Syncope Foot fracture, right Hypokalemia Body mass index (BMI) of 19.0-19.9 in adult Nonsmoker Your Care Team Attending Physician - Srinivasan Lezama MD Primary Care Physician - Srinivasan Lezama MD This Is Your Medications List potassium chloride (Potassium Chloride (Ajd-Gtwo-Hcx M20) 20 mEq oral tablet, extended release) [...] Follow-Up Appointments Friday 10:00 AM EST With: Hermelinda Han MD Where: [facility] Invalid Interpretation Code [address] [place] [address]- \.br\ Friday 11:00 AM EST \.br\ With:\.br\ Where: [facility] Family Medicine [facility] Family Medicine Office/Clini c Noteon 09-08-2023 Family Medicine Office/Clinic Note HPI Staff Dorie is an 78 year old female presenting for hospital follow up Was in [place] on way home took a fall and diagnosed severe sprain, small chip and wearing a cast shoe. After being home she collapsed and went unconscious she doesn't recall any of that Hospital: [facility] Admission date: 09/03/23 1am Discharge date: 09/03/23 [...] male. The patient was recently admitted to [facility] in [place], [place], and was discharged on 09/05/2023. She [...] to get x-rays done so that the energy consultant can see them. We will have the energy consultant order as he has got an x-ray [...] with voice recognition artificial intelligence software, specifically [employer], [employer] and or [employer]. Substitutions may have occurred due to the inherent limitations of voice recognition and artificial intelligence software. ATTESTATION: Documentation services were performed after patient or guardian consented to allow [employer] to record this visit. JAIRON legal process specialist and provider reviewed before signing. JAIRON: [...] Self D (more content not included)... Normal [facility] Comment on above: Result Comment: Elec tronically Signed By: Srinivasan Lezama MD\.br\Date and Time Signed: 09/08/23 18:08 EST\.br\Electronically Co-Signed By: Sneha Jett.br\Date and Time Co-Signed: 09/08/23 13:53 EST Discharge Documentationon Discharge Documentation [id number] #1.00TIFF Normal [facility] ED Note-Physicianon 09-03-19 24 ED Note-Physician [id number] #1.00TIFF Normal [facility] RAD - CT Reporton 09-03-2023 RAD - CT Report [id number] #1.00TIFF Normal [facility] RAD - CT Report [id number] #1.00TIFF Normal [facility] RAD - Ultrasound Reporton RAD - Ultrasound Report [id number] #1.00TIFF Normal [facility] Family Medicine Office/Clini c Noteon 08-19-2023 [...] cardiovascular disease) (I25.10: Atherosclerotic heart disease of [place] coronary artery without angina pectoris) The [...] with voice recognition artificial intelligence software, specifically [employer], [employer] and or [employer]. Substitutions may have occurred due to the inherent limitations of voice recognition and artificial intelligence software. Documentation services were performed after patient or guardian consented to allow [employer] to record this visit. JAIRON legal process specialist and provider reviewed before signing. JAIRON: Laina Tucker. Follow-up No qualifying data available Problem List/Past Medical History O (more content not included)... Normal [facility] Comment on above: Result Comment: Elec [...] With: Lise DOS SANTOS, Srinivasan Milligan Where: [facility] [place] Normal [address] [place] [address]- \.br\ Medications\.br\ What How Much When Why Instructions\.br\ New hydrOXYzine (hydrOXYzine hydrochloride 10 mg Tab) 1 Tablets By Mouth 4 times a day as needed for for anxiety Pickup at [facility]/pharmacy #[id number]\.br\ Unchanged albuterol (Albuterol (Eqv-ProAir HFA) 90 mcg/ inh inhalation aerosol) 2 Puffs Inhalation Every 6 hours Contact prescribing physician if questions or concerns \.br\ Unchanged amoxicillin 2,000 Milligram By Mouth Once as needed for Other (see comment) 30 to 60 minutes prior to dental procedure Contact prescribing physician if questions or concerns \.br\ Unchanged budesonide-formot sara (Symbicort 80/ 4.5 inhalation aerosol with adapter) See instructions INHALE 2 PUFFS BY MOUTH TWICE DAILY Contact prescribing physician if questions or concerns \.br\ Unchanged cholestyramine (Prevalite 4 g/ 5.5 g oral powder for reconstitution) 4 Gram By Mouth Every day take 2gm daily until instructed otherwise Contact prescribing physician if questions or concerns \.br\ Unchanged hydrochlorothiazi de-lisinopril 12.5-10 mg By Mouth Every day Contact [...] if questions or concerns \.br\ Pharmacy Information\.br\ [id number]: [address] [place], [place] [id number] [phone]\.br\ Allergies\.br\ No Known Allergies\.br\ No Known Medication [...] for choosing us for your care.\.br\ \.br\ [facility] Pre-Visit Planningon 023 Pre-Visit Planning - From: Gita Contreras To: Srinivasan Lezama MD; Sent: 08/08/2023 12:04:31 EST Subject: Pre-Visit Planning Due Date/Time: 08/08/2023 12:04:00 EST Caller Name: DORIE ROOT; Caller Number: H Pr Dr. Lezama. During a pre-visit planning chart [...] feel free to contact me at extension [phone]. Thank you and have a great weekend! Gita Contreras LPN - From: Srinivasan Lezama MD To: Gita Contreras; Sent: 08/11/2023 08:51:48 EST Subject: RE: Pre-Visit Planning Caller Name: DORIE ROOT; Caller Number: H - Please add PAD Normal [address] [place] [address] Dexa Scanson 08-04-2023 Dexa Scans [phone] [id number] #1.00TIFF Normal [facility] Dexa Scans [phone] #1.00TIFF Normal [facility] Ambulatory Visit Summaryon 09-30-2022 Ambulatory Visit Summary DORIE ROOT :1945 MRN:[id number] Visit Date:07/31/2023 Ambulatory Visit Instructions Your Diagnosis [...] PM EST With: Srinivasan Lezama MD Where: [address] \.br\ Medications\.br\ What How Much When Why Instructions\.br\ Unchanged albuterol (Albuterol (Eqv-ProAir HFA) 90 mcg/ inh inhalation aerosol) 2 Puffs Inhalation Every 6 hours\.br\ Unchanged amoxicillin 2,000 Milligram By Mouth Once as needed for Other (see comment) 30 to 60 minutes prior to dental procedure \.br\ Unchanged budesonide-formot sara (Symbicort 80/ 4.5 inhalation aerosol with adapter) See instructions INHALE 2 PUFFS BY MOUTH TWICE DAILY \.br\ Unchanged cholestyramine (Prevalite 4 g/ 5.5 g oral powder for reconstitution) 4 Gram By Mouth Every day take 2gm daily until instructed otherwise \.br\ Unchanged hydrochlorothiazi de-lisinopril 12.5-10 mg By Mouth Every day\.br\ Unchanged [...] for choosing us for your care.\.br\ \.br\ [facility] CMPon 07-31-2023 Albumin [Mass/Vol] 4.2 g/dL Normal 3.3-5.0 [facility] Comment on above: Performed By: #### 1 [id number], [id number] ####[facility] [address] [place] [address] Albumin/Globulin (S) [Mass conc ratio] 1.4 Normal 1.1-2.2 [facility] Comment on above: Performed By: #### 1 [id number], [id number] ####[facility] [address] [place] [address] ALP [Catalytic activity/Vol] 63 Int._Unit/L Normal 21-98 [facility] Comment on above: Performed By: #### 1 [id number], [id number] ####[facility] [address] [place] [address] ALT No additional P-5'-P [Catalytic activity/Vol] 23 Int._Unit/L Normal 6-46 [facility] Comment on above: Performed By: #### 1 [id number], [id number] ####[place] [address] [place] [address] Anion gap [Moles/Vol] 12 mmol/L Normal 6-16 [facility] Comment on above: Performed By: #### 1 [id number], [id number] ####[address] [place] [address] AST [Catalytic activity/Vol] 31 Int._Unit/L Normal 5-43 [facility] Comment on above: Performed By: #### 1 [id number], [id number] ####[address] [place] [address] Bilirubin [Mass/Vol] 0.4 mg/dL Normal 0.0-1.1 [facility] Comment on above: Performed By: #### 1 [id number], 8147580 ####[facility] [address] [place] [address] Calcium [Mass/Vol] 9.5 mg/dL Normal 8.9-11.1 [facility] Comment on above: Performed By: #### 1 1653558, 0289739 ####[facility] [address] [facility] [place] [address] Chloride [Moles/Vol] 102 mmol/L Normal 101-111 [facility] Comment on above: Performed By: #### 1 [id number], [id number] ####[facility] [address] [place] [address] CO2 [Moles/Vol] 24 mmol/L Normal 21-31 [facility] Comment on above: Performed By: #### 1 3753848, 8809690 ####[facility] [address] [place] [address] Creatinine [Mass/Vol] 0.8 mg/dL Normal 0.5-1.3 [facility] Comment on above: Performed By: #### 1 5672625, 6154276 ####[facility] [address] [place] [address] Globulin (S) [Mass/Vol] 2.9 g/dL Normal 1.4-4.0 [facility] Comment on above: Performed By: #### 1 [id number], 0532874 ####[facility] [address] [place] [address] Glucose [Mass/Vol] 142 mg/dL Normal 55-199 [facility] Comment on above: Result Comment: If t his glucose result represents a fasting glucose, interpretation should refer to the following reference range: 55-99 mg/dL Performed By: #### 1 [id number], 4377550 ####[facility] [address] [place] [address] Potassium [Moles/Vol] 3.1 mmol/L Low 3.5-5.3 [facility] Comment on above: Performed By: #### 1 [id number], 7435503 ####[facility] [address] [place] [address] Protein [Mass/Vol] 7.1 g/dL Normal 6.0-7.8 [facility] Comment on above: Performed By: #### 1 [id number], 7975250 ####[facility] [address] [place] [address] Sodium [Moles/Vol] 135 mmol/L Normal 135-145 [facility] Comment on above: Performed By: #### 1 6851018, 4537663 ####[facility] [address] [place] [address] Urea nitrogen [Mass/Vol] 17 mg/dL Normal 5-21 [facility] Comment on above: Performed By: #### 1 9631003, 7841635 ####[facility] [address] [place] [address] Urea nitrogen/Creatinine [Mass ratio] 21 No Units High 10-20 [facility] Comment on above: Performed By: #### 1 2844675, 7235719 ####[facility] [address] [place] [address] Nurse Consultation Noteon Nurse Consultation Note Reason [...] influenza virus vaccine, inactivated 05/31/2015 Recorded Normal [facility] eGFRon 07-31-2023 GFR/1.73 sq M.predicted among non-blacks MDRD (S/P/Bld) [Vol rate/Area] 74 mL/min/1.73 m2 Normal >=59 [facility] Comment on above: Order Comment: Order added by Discern Expert. Result Comment: Insurance Sales Executive chelo kidney disease could be indicated at eGFR's of less than 60 mL/min/1.73m2. Kidney failure is indicated at less than 15 mL/min/1.73m2. Performed By: #### 1 [id number], [id number] ####[facility] [address] [place] [address] Lipid 1996 panelon 3 Cholesterol [Mass/Vol] 209 mg/dL High <200 [facility] Comment on above: Order Comment: [facility] Type: BLOOD SPECIMEN Ordering Facility: [facility] Address: [address] [place] [address] Result Comment: <200 mg/dL, Desirable 200-239 mg/dL, Borderline high >239 mg/dL, High Performed By: #### 2 4331-1 #### [facility] CLIA [id number] [facility] [place] [address] [place] Cholesterol in HDL [Mass/Vol] 76 mg/dL Normal >39 [facility] Comment on above: Order Comment: Apoorva florence Type: BLOOD SPECIMEN Ordering Facility: [facility] Address: [address] [place] [address] Result Comment: 40-5 9 mg/dL, Acceptable >59 mg/dL, High: Negative risk factor for coronary heart disease <40 mg/dL, Low: Positive risk factor for coronary heart disease Performed By: #### 2 4331-1 #### [facility] CLIA [id number] [facility] [place] [address] [facility] Cholesterol in LDL [Mass/Vol] 115 mg/dL High <100 [facility] Comment on above: Order Comment: Speci men Type: BLOOD SPECIMEN Ordering Facility: [facility] Address: [address] [place] [address] Result Comment: <100 mg/dL, Optimal 100-129 mg/dL, Near optimal/above optimal 130-159 mg/dL, Borderline high 160-189 mg/dL, High >189 mg/dL, Very high Secondary prevention optimal LDL Cholesterol levels are recommended to be < 70 mg/dL Performed By: #### 2 4331-1 #### [facility] CLIA [id number] [facility]. [address] [facility] Cholesterol in LDL/Cholesterol in HDL [Mass ratio] 1.51 {ratio} Normal <2.54 [facility] Comment on above: Order Comment: [facility] Type: BLOOD SPECIMEN Ordering Facility: [facility] Address: [address] [place] [address] Result Comment: Refford hirsch: 1. National Cholesterol Education Program ATP III Guideline At-A-Glance Quick Desk Reference: National Heart, Lung, and Blood [place]. National Institutes of Health. 2001: NIH Publication No. 01-3305. 2. An International Atherosclerosis Society position paper: global recommendations for the management of dyslipidemia: executive summary, Atherosclerosis. 2014: 232(2):410-413. Performed By: #### 2 4331-1 #### [facility] CLIA [id number] [address] [facility] [place] [address] [facility] [place] Cholesterol in VLDL [Mass/Vol] 18 mg/dL Normal <30 [facility] Comment on above: Order Comment: [facility] Type: BLOOD SPECIMEN Ordering Facility: [facility] Address: [address] [place] [address] Performed By: #### 2 4331-1 #### [facility] CLIA [id number] [address] [place] [address] [place] Cholesterol non HDL [Mass/Vol] 133 mg/dL High <130 [facility] Comment on above: Order Comment: Apoorva florence Type: BLOOD SPECIMEN Ordering Facility: [facility] Address: [address] [place] [address] Result Comment: <130 mg/dL, Optimal 130-159 mg/dL, Near optimal/above optimal 160-189 mg/dL, Borderline high 190-219 mg/dL, High >219 mg/dL, Very high Secondary prevention optimal non HDL Cholesterol levels are recommended to be <100 mg/dL Performed By: #### 2 4331-1 #### [facility] CLIA [id number] [address] [place] [address] [place] Cholesterol.total/Ch olesterol in HDL [Mass ratio] 2.75 {ratio} Normal <5.10 [facility] Comment on above: Order Comment: Apoorva florence Type: BLOOD SPECIMEN Ordering Facility: [facility] Address: [address] [place] [address] Performed By: #### 2 4331-1 #### [facility] CLIA [id number] [place] FASTING TIME 15 hrs Normal [facility] Comment on above: Order Comment: Apoorva florence Type: BLOOD SPECIMEN Ordering Facility: [facility] Address: [address] [place] [address] Performed By: #### 2 4331-1 #### [facility] CLIA [id number] [address] [place] [address] [place] Triglyceride [Mass/Vol] 92 mg/dL Normal <150 [facility] Comment on above: Order Comment: Rohiti ludivina Type: BLOOD SPECIMEN Ordering Facility: [facility] Address: [address] [place] [address] Result Comment: <150 mg/dL, Normal 150-199 mg/dL, Borderline high 200-499 mg/dL, High >499 mg/dL, Very high Performed By: #### 2 4331-1 #### [facility] CLIA [id number] [facility] [place] [address] [place] NM Heart Perfusion W stress and W radionuclide Romy 06-11-2023 * * *Final Report* * * DATE OF EXAM: Jun 11 2023 2:23PM STN 0006 - NM CARDIAC PERF STRESS/PHARM / PROCEDURE REASON: Chest pain, unspecified type * * * * Physician Interpretation * * * * Stress Gas Welder Report: [facility] Date of service: 06/11/2023 12:42:30 PM Supervising [...] later. See administered radiotracer and doses below. [facility] Date of service: 06/11/2023 12:42:30 PM Ordering Physician: RACHAEL CHANEY. Requesting Physician: Indication: chest pain Interpreting physician: Elvis Shah MD Height: 157.48 cm BSA: 1.48 m Weight: 50.35 kg BMI: 20.3 kg/m Imaging Protocol Limitation Reason Breast attenuation. Exam [...] Final * * * Stress ECG Report: [facility] Date of service: 06/11/2023 12:42:30 PM Ordering physician: RACHAEL CHANEY occupational medicine specialist: Kathy Gustafson Interpreting physician: Kamilla Damon MD Patient name: MRS. DORIE ROOT Age: 78 years Gender: F Height: 157.48 cm BSA: 1.48 m Weight: 50.35 kg BMI: 20.3 kg/m Indication: Chest pressure / Chest tightness Stress [...] Days Resting ECG: Sinus Bradycardia and Right [place] Deviation Symptoms at rest: No symptoms Pharamcologic Protocol: Regadenoson Stress Exercise Table: +------+ +- -+---+---+ Stage Time (min) HR SYS HARJINDER +------+ +- -+---+---+ 1 1.0 60 130 70 +------+ +- -+---+---+ 2 2.0 88 120 60 +------+ +- -+---+---+ (more content not included)... DIVISION OF RADIOLOGY Provider, [facility] - 06/11/2023 * * *Final Report* * * DATE OF EXAM: Jun 11 2023 2:23PM STN 0006 - NM CARDIAC PERF STRESS/PHARM / PROCEDURE REASON: Chest pain, unspecified type * * * * Physician Interpretation * * * * Stress Gas Welder Report: [facility] Date of service: 06/11/2023 12:42:30 PM Supervising [...] later. See administered radiotracer and doses below. [facility] Date of service: 06/11/2023 12:42:30 PM Ordering Physician: RACHAEL CHANEY. Requesting Physician: Indication: chest pain Interpreting physician: Elvis Shah MD Height: 157.48 cm BSA: 1.48 m Weight: 50.35 kg BMI: 20.3 kg/m Imaging Protocol Limitation Reason Breast attenuation. Exam [...] Final * * * Stress ECG Report: [facility] Date of service: 06/11/2023 12:42:30 PM Ordering physician: RACHAEL CHANEY occupational medicine specialist: Kathy Gustafson Interpreting physician: Kamilla Damon MD Patient name: MRS. DORIE ROOT Age: 78 years Gender: F Height: 157.48 cm BSA: 1.48 m Weight: 50.35 kg BMI: 20.3 kg/m Indication: Chest pressure / Chest tightness Stress [...] Days Resting ECG: Sinus Bradycardia and Right [place] Deviation Symptoms at rest: No symptoms Pharamcologic [...] 110 60 +-----+--+---+---+ +------+ + Stage Arrhythmias (more content not included)... [facility] Radiology Study observation (narrative) [facility] NM Heart Perfusion W stress and W radionuclide IVOrdered By: Ccf Provider on 06-11-2023 [facility] CBC AUTO DIFFon 01-21-2023 BASO # 0.1 103/ul Normal 0.0-0.1 [facility] Comment on above: Performed By: #### C BC #### [facility] [address] [place] [address] Dr. Mina Perkins Basophils/100 WBC (Bld) 0.7 % Normal 0.2-2.0 [facility] Comment on above: Performed By: #### C BC #### [facility] [address] [place] [address] Dr. Mina Perkins EO # 0.1 103/ul Normal 0.0-0.7 [facility] Comment on above: Performed By: #### C BC #### [facility] [address] [place] [address] Dr. Mina Perkins Eosinophils/100 WBC (Bld) 1.2 % Normal 0.9-7.0 [facility] Comment on above: Performed By: #### C BC #### [facility] [address] [place] [address] Dr. Mina Perkins Erythrocyte distribution width (RBC) [Ratio] 12.2 % Normal 11.0-15.0 [facility] Comment on above: Performed By: #### C BC #### [facility] [address] [place] [address] Dr. Mina Perkins Hematocrit (Bld) [Volume fraction] 44.0 % Normal 36.0-48.0 [facility] Comment on above: Performed By: #### C BC #### [facility] [address] [place] [address] Dr. Mina Perkins Hemoglobin (Bld) [Mass/Vol] 15.4 g/dL Normal 12.0-16.0 [facility] Comment on above: Performed By: #### C BC #### [facility] [address] [place] [address] Dr. Mina Perkins IG # 0.02 10e3/ul Normal 0.00-0.03 [facility] Comment on above: Performed By: #### C BC #### [facility] [address] [place] [address] Dr. Mina Perkins IG % 0.2 % Normal 0.0-0.5 [facility] Comment on above: Performed By: #### C BC #### [facility] [address] [place] [address] Dr. Mina Perkins LYMPH # 1.8 103/ul Normal 1.2-3.8 [facility] Comment on above: Performed By: #### C BC #### [facility] [address] [place] [address] Dr. Mina Perkins Lymphocytes/100 WBC (Bld) 19.2 % Critically low 20.5-60.0 [facility] Comment on above: Performed By: #### C BC #### [facility] [address] [place] [address] Dr. Mina Perkins MANUAL DIFF REQ NO Normal [facility] Comment on above: Performed By: #### C BC #### [facility] [address] [place] [address] Dr. Mina Perkins MCH (RBC) [Entitic mass] 30.8 pg Normal 26.7-34.0 [facility] Comment on above: Performed By: #### C BC #### [facility] [address] [address] [address] Mina Perkins MCHC (RBC) [Mass/Vol] 35.0 g/dL Normal 29.9-35.2 [facility] Comment on above: Performed By: #### C BC #### [facility] [address] [address] [address] Mina Perkins MCV (RBC) [Entitic vol] 88.0 fL Normal 81.0-99.0 [facility] Comment on above: Performed By: #### C BC #### [facility] [address] [address] [address] Mina Perkins MONO # 0.7 103/ul Normal 0.3-0.8 [facility] Comment on above: Performed By: #### C BC #### [facility] [address] [address] [address] Mina Perkins Monocytes/100 WBC (Bld) 7.5 % Normal 1.7-12.0 [facility] Comment on above: Performed By: #### C BC #### [facility] [address] [address] [address] Mina Perkins NEUT # 6.8 103/ul Critically high 1.4-6.5 [facility] Comment on above: Performed By: #### C BC #### [facility] [address] [address] [address] Mina Perkins Neutrophils/100 WBC (Bld) 71.2 % Normal 43.0-75.0 [facility] Comment on above: Performed By: #### C BC #### [facility] [address] [address] [address] Mina Perkins Platelet mean volume (Bld) [Entitic vol] 9.8 fL Normal 9.5-13.5 [facility] Comment on above: Performed By: #### C BC #### [facility] [address] [address] [address] Mina Perkins PLT 278 103/ul Normal 150-450 [facility] Comment on above: Performed By: #### C BC #### [facility] [address] [address] [address] Mina Perkins RBC 5.00 106/ul Normal 4.20-5.40 [facility] Comment on above: Performed By: #### C BC #### [facility] [address] [address] [address] Mina Perkins WBC 9.5 103/ul Normal 4.0-11.0 [facility] Comment on above: Performed By: #### C BC #### [facility] [address] [address] [address] Mina Perkins LIPID PROFILEon 01-21-2023 CHOL-HDL RATIO NORM SEE BELOW Normal [facility] Comment on above: Result Comment: 3.3 - 4.4 LOW RISK 4.4 - 7.1 AVERAGE RISK 7.1 - 11.0 MODERATE RISK >11.0 HIGH RISK Performed By: #### T SH, CMP, LIPID #### [facility] [address] [address] [address] Mina Perkins Cholesterol [Mass/Vol] 199 mg/dL Normal <=200 [facility] Comment on above: Performed By: #### T SH, CMP, LIPID #### [facility] [address] [place] [address] Dr. Mina Perkins Cholesterol in HDL [Mass/Vol] 84 mg/dL Critically high 40-60 [facility] Comment on above: Performed By: #### T SH, CMP, LIPID #### [facility] [address] [address] [address] Mina Perkins Cholesterol in LDL [Mass/Vol] 102.2 mg/dL Normal [facility] Comment on above: Performed By: #### T SH, CMP, LIPID #### [facility] [address] [place] [address] Dr. Mina Perkins Cholesterol.total/Ch olesterol in HDL [Mass ratio] 2.4 {ratio} Normal [facility] Comment on above: Performed By: #### T SH, CMP, LIPID #### [facility] [address] [place] [address] Dr. Mina Perkins HDL NORMAL > or = 60 mg/dl - LOW CARDIOVASCULAR RISK <40 mg/dl - HIGH CARDIOVASCULAR RISK Normal [facility] Comment on above: Performed By: #### T SH, CMP, LIPID #### [facility] [address] [address] [address] Mina Perkins LDL CALC NORMAL SEE BELOW Normal [facility] Comment on above: Result Comment: <100 mg/dl OPTIMAL 100 - 129 mg/dl NEAR OR ABOVE OPTIMAL 130 - 159 mg/dl BORDERLINE HIGH 160 - 189 mg/dl HIGH >190 mg/dl VERY HIGH Performed By: #### T SH, CMP, LIPID #### [facility] [address] [address] [address] Mina Perkins Triglyceride [Mass/Vol] 64 mg/dL Normal <=150 [facility] Comment on above: Performed By: #### T SH, CMP, LIPID #### [facility] [address] [address] [address] Mina Perkins VLDL CALC 12.8 mg/dL Normal [facility] Comment on above: Performed By: #### T SH, CMP, LIPID #### [facility] [address] [address] [address] Mina Perkins PROF 14(COMP METB)on 023 Albumin [Mass/Vol] 4.2 g/dL Normal 3.4-5.0 [facility] Comment on above: Performed By: #### T SH, CMP, LIPID #### [facility] [address] [place] [address] Dr. Mina Perkins Albumin/Globulin [Mass ratio] 1.1 {ratio} Normal [facility] Comment on above: Performed By: #### T SH, CMP, LIPID #### [facility] [address] [place] [address] Dr. Mina Perkins ALP [Catalytic activity/Vol] 79 U/L Normal 46-116 [facility] Comment on above: Performed By: #### T SH, CMP, LIPID #### [facility] [address] [address] [address] Mina Perkins ALT [Catalytic activity/Vol] 30 U/L Normal 14-59 [facility] Comment on above: Performed By: #### T SH, CMP, LIPID #### [facility] [facility] [address] [place] [address] Dr. Mina Perkins Anion gap [Moles/Vol] 15.1 mmol/L Normal [facility] Comment on above: Performed By: #### T SH, CMP, LIPID #### [facility] [address] [place] [address] Dr. Mina Perkins AST [Catalytic activity/Vol] 39 U/L Critically high 15-37 [facility] Comment on above: Performed By: #### T SH, CMP, LIPID #### [facility] [address] [place] [address] Dr. Mina Perkins Bilirubin [Mass/Vol] 0.9 mg/dL Normal 0.2-1.0 [facility] Comment on above: Performed By: #### T SH, CMP, LIPID #### [facility] [address] [place] [address] Dr. Mina Perkins Calcium [Mass/Vol] 9.7 mg/dL Normal 8.5-10.1 [facility] Comment on above: Performed By: #### T SH, CMP, LIPID #### [facility] [address] [place] [address] Dr. Mina Perkins Chloride [Moles/Vol] 99 mmol/L Normal 98-107 [facility] Comment on above: Performed By: #### T SH, CMP, LIPID #### [facility] [address] [place] [address] Dr. Mina Perkins CO2 [Moles/Vol] 27.3 mmol/L Normal 21.0-32.0 The [facility] Comment on above: Performed By: #### T SH, CMP, LIPID #### [facility] [address] [place] [address] Dr. Mina Perkins Creatinine [Mass/Vol] 0.74 mg/dL Normal 0.55-1.02 [facility] Comment on above: Performed By: #### T SH, CMP, LIPID #### [facility] [address] [address] [address] Mina Perkins EGFR-AF ANDORRAN >60 Normal >=60 The [facility] Comment on above: Performed By: #### T SH, CMP, LIPID #### [facility] [address] [address] [address] Mina Perkins EGFR-NON AF ANDORRAN >60 Normal >=60 The [facility] Comment on above: Performed By: #### T SH, CMP, LIPID #### [facility] [address] [address] [address] Mina Perkins Globulin (S) [Mass/Vol] 3.8 g/dL Normal [facility] Comment on above: Performed By: #### T SH, CMP, LIPID #### [facility] [address] [place] [address] Dr. Mina Perkins Glucose [Mass/Vol] 85 mg/dL Normal 74-106 [facility] Comment on above: Performed By: #### T SH, CMP, LIPID #### [facility] [address] [place] [address] Dr. Mina Perkins Potassium [Moles/Vol] 4.4 mmol/L Normal 3.5-5.1 [facility] Comment on above: Performed By: #### T TRENA, CMP, LIPID #### [facility] [address] [place] [address] Dr. Mina Perkins Protein [Mass/Vol] 8.0 g/dL Normal 6.4-8.2 [facility] Comment on above: Performed By: #### T SH, CMP, LIPID #### [facility] [address] [place] [address] Dr. Mina Perkins Sodium [Moles/Vol] 137 mmol/L Normal 136-145 [facility] Comment on above: Performed By: #### T SH, CMP, LIPID #### [facility] [address] [place] [address] Dr. Mina Perkins Urea nitrogen [Mass/Vol] 15.0 mg/dL Normal 7.0-18.0 The [facility] Comment on above: Performed By: #### T SH, CMP, LIPID #### [facility] [address] [place] [address] Dr. Mina Perkins Urea nitrogen/Creatinine [Mass ratio] 20.3 mg/mg Normal [facility] Comment on above: Performed By: #### T SH, CMP, LIPID #### [facility] [address] [place] [address] Dr. Mina Perkins TSHon 01-21-2023 TSH 1.896 uIU/mL Normal 0.358-3.740 [facility] Comment on above: Performed By: #### T SH, CMP, LIPID #### [facility] [address] [place] [address] Dr. Mina Perkins MRI BRAIN WO IVCONon 023 [facility] FREE T3on 10-29-2022 FREE T3 2.71 pg/mlL Normal 2.18-3.98 [facility] Comment on above: Performed By: #### F T3, TSH #### [facility] [address] [place] [address] Dr. Mina Perkins FREE T4on 10-29-2022 Free T4 [Mass/Vol] 1.10 ng/dL Normal 0.76-1.46 [facility] Comment on above: Performed By: #### F T4 #### [facility] [address] [place] [address] Dr. Mina Perkins TSHon 10-29-2022 TSH 2.219 uIU/mL Normal 0.358-3.740 [facility] Comment on above: Performed By: #### F T3, TSH #### [facility] [address] [place] [address] Dr. Mina Perkins CBC AUTO DIFFon 05-29-2022 BASO # 0.1 103/ul Normal 0.0-0.1 [facility] Comment on above: Performed By: #### C BC #### [facility] [address] [place] [address] Dr. Mina Perkins Basophils/100 WBC (Bld) 0.7 % Normal 0.2-2.0 [facility] Comment on above: Performed By: #### C BC #### [facility] [address] [place] [address] Dr. Mina Perkins EO # 0.1 103/ul Normal 0.0-0.7 [facility] Comment on above: Performed By: #### C BC #### [facility] [address] [place] [address] Dr. Mina Perkins Eosinophils/100 WBC (Bld) 1.7 % Normal 0.9-7.0 [facility] Comment on above: Performed By: #### C BC #### [facility] [address] [place] [address] Dr. Mina Perkins Erythrocyte distribution width (RBC) [Ratio] 12.1 % Normal 11.0-15.0 [facility] Comment on above: Performed By: #### C BC #### [facility] [address] [place] [address] Dr. Mina Perkins Hematocrit (Bld) [Volume fraction] 40.8 % Normal 36.0-48.0 [facility] Comment on above: Performed By: #### C BC #### [facility] [address] [place] [address] Dr. Mina Perkins Hemoglobin (Bld) [Mass/Vol] 14.2 g/dL Normal 12.0-16.0 [facility] Comment on above: Performed By: #### C BC #### [facility] [address] [place] [address] Dr. Mina Perkins IG # 0.01 10e3/ul Normal 0.00-0.03 [facility] Comment on above: Performed By: #### C BC #### [facility] [address] [place] [address] Dr. Mina Perkins IG % 0.1 % Normal 0.0-0.5 [facility] Comment on above: Performed By: #### C BC #### [facility] [address] [place] [address] Dr. Mina Perkins LYMPH # 1.5 103/ul Normal 1.2-3.8 [facility] Comment on above: Performed By: #### C BC #### [facility] [address] [place] [address] Dr. Mina Perkins Lymphocytes/100 WBC (Bld) 20.1 % Critically low 20.5-60.0 [facility] Comment on above: Performed By: #### C BC #### [facility] [address] [place] [address] Dr. Mina Perkins MANUAL DIFF REQ NO Normal [facility] Comment on above: Performed By: #### C BC #### [facility] [address] [place] [address] Dr. Mina Perkins MCH (RBC) [Entitic mass] 30.5 pg Normal 26.7-34.0 [facility] Comment on above: Performed By: #### C BC #### [facility] [address] [place] [address] Dr. Mina Perkins MCHC (RBC) [Mass/Vol] 34.8 g/dL Normal 29.9-35.2 [facility] Comment on above: Performed By: #### C BC #### [facility] [address] [place] [address] Dr. Mina Perkins MCV (RBC) [Entitic vol] 87.7 fL Normal 81.0-99.0 [facility] Comment on above: Performed By: #### C BC #### [facility] [address] [place] [address] Dr. Mina Perkins MONO # 0.6 103/ul Normal 0.3-0.8 [facility] Comment on above: Performed By: #### C BC #### [facility] [address] [place] [address] Dr. Mina Perkins Monocytes/100 WBC (Bld) 8.1 % Normal 1.7-12.0 [facility] Comment on above: Performed By: #### C BC #### [facility] [address] [place] [address] Dr. Mina Perkins NEUT # 5.2 103/ul Normal 1.4-6.5 [facility] Comment on above: Performed By: #### C BC #### [facility] [address] [place] [address] Dr. Mina Perkins Neutrophils/100 WBC (Bld) 69.3 % Normal 43.0-75.0 [facility] Comment on above: Performed By: #### C BC #### [facility] [address] [place] [address] Dr. Mina Perkins Platelet mean volume (Bld) [Entitic vol] 9.3 fL Critically low 9.5-13.5 [facility] Comment on above: Performed By: #### C BC #### [facility] [address] [place] [address] Dr. Mian Perkins PLT 311 103/ul Normal 150-450 [facility] Comment on above: Performed By: #### C BC #### [facility] [address] [place] [address] Dr. Mina Perkins RBC 4.65 106/ul Normal 4.20-5.40 [facility] Comment on above: Performed By: #### C BC #### [facility] [address] [place] [address] Dr. Mina Perkins WBC 7.5 103/ul Normal 4.0-11.0 [facility] Comment on above: Performed By: #### C BC #### [facility] [address] [place] [address] Dr. Mina Perkins LIPID PROFILEon 05-29-2022 CHOL-HDL RATIO NORM SEE BELOW Normal [facility] Comment on above: Result Comment: 3.3 - 4.4 LOW RISK 4.4 - 7.1 AVERAGE RISK 7.1 - 11.0 MODERATE RISK >11.0 HIGH RISK Performed By: #### L IPID, CMP #### [facility] [address] [place] [address] Dr. Mina Perkins Cholesterol [Mass/Vol] 196 mg/dL Normal <=200 [facility] Comment on above: Performed By: #### L IPID, CMP #### [facility] [address] [place] [address] Dr. Mina Perkins Cholesterol in HDL [Mass/Vol] 82 mg/dL Critically high 40-60 [facility] Comment on above: Performed By: #### L IPID, CMP #### [facility] [address] [address] [address] Mina Perkins Cholesterol in LDL [Mass/Vol] 99.0 mg/dL Normal [facility] Comment on above: Performed By: #### L IPID, CMP #### [facility] [address] [address] [address] Mina Perkins Cholesterol.total/Ch olesterol in HDL [Mass ratio] 2.4 {ratio} Normal [facility] Comment on above: Performed By: #### L IPID, CMP #### [facility] [address] [address] [address] Mina Perkins HDL NORMAL > or = 60 mg/dl - LOW CARDIOVASCULAR RISK <40 mg/dl - HIGH CARDIOVASCULAR RISK Normal [facility] Comment on above: Performed By: #### L IPID, CMP #### [facility] [address] [place] [address] Dr. Mina Perkins LDL CALC NORMAL SEE BELOW Normal [facility] Comment on above: Result Comment: <100 mg/dl OPTIMAL 100 - 129 mg/dl NEAR OR ABOVE OPTIMAL 130 - 159 mg/dl BORDERLINE HIGH 160 - 189 mg/dl HIGH >190 mg/dl VERY HIGH Performed By: #### L IPID, CMP #### [facility] [address] [place] [address] Dr. Mina Perkins Triglyceride [Mass/Vol] 75 mg/dL Normal <=150 [facility] Comment on above: Performed By: #### L IPID, CMP #### [facility] [address] [place] [address] Dr. Mina Perkins VLDL CALC 15.0 mg/dL Normal [facility] Comment on above: Performed By: #### L IPID, CMP #### [facility] [address] [place] [address] Dr. Mina Perkins PROF 14(COMP METB)on 022 Albumin [Mass/Vol] 4.1 g/dL Normal 3.4-5.0 [facility] Comment on above: Performed By: #### L IPID, CMP #### [facility] [address] [address] [address] Mina Perkins Albumin/Globulin [Mass ratio] 1.2 {ratio} Normal [facility] Comment on above: Performed By: #### L IPID, CMP #### [facility] [address] [address] [address] Mina Perkins ALP [Catalytic activity/Vol] 77 U/L Normal 46-116 [facility] Comment on above: Performed By: #### L IPID, CMP #### [facility] [address] [address] [address] Mina Perkins ALT [Catalytic activity/Vol] 36 U/L Normal 14-59 [facility] Comment on above: Performed By: #### L IPID, CMP #### [facility] [address] [place] [address] Dr. Mina Perkins Anion gap [Moles/Vol] 15.3 mmol/L Normal [facility] Comment on above: Performed By: #### L IPID, CMP #### [facility] [address] [place] [address] Dr. Mina Perkins AST [Catalytic activity/Vol] 31 U/L Normal 15-37 [facility] Comment on above: Performed By: #### L IPID, CMP #### [facility] [address] [place] [address] Dr. Mina Perkins Bilirubin [Mass/Vol] 0.9 mg/dL Normal 0.2-1.0 [facility] Comment on above: Performed By: #### L IPID, CMP #### [facility] [address] [place] [address] Dr. Mina Perkins Calcium [Mass/Vol] 9.5 mg/dL Normal 8.5-10.1 [facility] Comment on above: Performed By: #### L IPID, CMP #### [facility] [address] [place] [address] Dr. Mina Perkins Chloride [Moles/Vol] 97 mmol/L Critically low 98-107 [facility] Comment on above: Performed By: #### L IPID, CMP #### [facility] [address] [address] [address] Mina Perkins CO2 [Moles/Vol] 25.6 mmol/L Normal 21.0-32.0 The [facility] Comment on above: Performed By: #### L IPID, CMP #### [facility] [address] [address] [address] Mina Perkins Creatinine [Mass/Vol] 0.81 mg/dL Normal 0.55-1.02 [facility] Comment on above: Performed By: #### L IPID, CMP #### [facility] [address] [address] [address] Mina Perkins EGFR-AF ANDORRAN >60 Normal >=60 The [facility] Comment on above: Performed By: #### L IPID, CMP #### [facility] [address] [place] [address] Dr. Mina Perkins EGFR-NON AF ANDORRAN >60 Normal >=60 [facility] Comment on above: Performed By: #### L IPID, CMP #### [facility] [address] [address] [address] Mina Perkins Globulin (S) [Mass/Vol] 3.4 g/dL Normal [facility] Comment on above: Performed By: #### L IPID, CMP #### [facility] [address] [address] [address] Mina Perkins Glucose [Mass/Vol] 89 mg/dL Normal 74-106 [facility] Comment on above: Performed By: #### L IPID, CMP #### [facility] [address] [address] [address] Mina Perkins Potassium [Moles/Vol] 3.9 mmol/L Normal 3.5-5.1 [facility] Comment on above: Performed By: #### L IPID, CMP #### [facility] [address] [address] [address] Mina Perkins Protein [Mass/Vol] 7.5 g/dL Normal 6.4-8.2 [facility] Comment on above: Performed By: #### L IPID, CMP #### [facility] [address] [address] [address] Mina Perkins Sodium [Moles/Vol] 134 mmol/L Critically low 136-145 Th e [facility] Comment on above: Performed By: #### L IPID, CMP #### [facility] [address] [address] [address] Mina Perkins Urea nitrogen [Mass/Vol] 14.0 mg/dL Normal 7.0-18.0 [facility] Comment on above: Performed By: #### L IPID, CMP #### [facility] [address] [address] [address] Mina Perkins Urea nitrogen/Creatinine [Mass ratio] 17.3 mg/mg Normal [facility] Comment on above: Performed By: #### L IPID, CMP #### [facility] [address] [address] [address] Mina Perkins MG MAMM SCREEN 3D CHIVO CADon 03-14-2022 MG MAMM SCREEN 3D CHIVO CAD Patient: DORIE ROOT Exam Date: 03/14/2022 : 1945 Gender:F Ordering : DR KAIT BOYCE Admission #: [id number] Family : DR JULIANO SHARMA . Order #: [id number] CLICK HERE TO VIEW EXAM RADIOLOGY REPORT PROCEDURE: MAMMOGRAM SCREENING 3D BILATERAL CAD COMPARISON: MG MAMM SCREEN 3D CHIVO CAD, 03/09/2021. MG MAMM SCREEN CHIVO W CAD, 03/06/2020. INDICATIONS: Screening for malignant neoplasm of breast Calculator Name NCI Breast Cancer Risk Assessment Tool 5 Year Breast Cancer Risk 3.00% Lifetime Breast Cancer Risk 5.30% Personal Breast Cancer No Personal Ovarian Cancer No Treatments None Family Cancers Sister with breast cancer at age 55. LOCATION: [facility] BREAST COMPOSITION: Heterogeneously dense,which may [...] Kasper MD on 03/14/2022 at 13:40 Normal [facility] 09-07-2021 L Specimen: [id number] Received: 09/07/21 Status: MITZY [place] Num: [id number] Spec Type: Surgical Subm Dr: An Yanez Jr, Tissues: A Colon Biopsy (RANDOM COLON) Procedures: HE Stain/2, Gross/Micro L4 Patient Age/Sex Location Account Attending Physician Dorie Root 76/F [id number] An Yanez Jr, DO SPEC NUM: [id number] RECD: 09/07/21 STATUS: MITZY [place] NUM: [id number] JESICA: 09/07/21 [facility] DR: An Yanez Jr, DO ENTERED: 09/07/21 [facility] DR: SPEC TYPE: Surgical DEPT: S ORDERED: HE Stain/2, [...] support the above pathologic diagnosis. CPT Codes 58902 Specimen: [id number] Received: 09/07/21 Status: MITZY [place] Num: [id number] Spec Type: Surgical Subm Dr: An Yanez Jr, Tissues: A Colon Biopsy (RANDOM COLON) Procedures: HE Stain/2, Gross/Micro L4 Patient: Dorie Root [id number] (Continued) Signed (signature on file) Afua Nash MD 09/10/21 1417 [facility] COVID-19 Antigenon 2 COVID-19 Antigen Healthcare [...] its performance Zena Disclaimer characteristic determined by [employer] and Zena Disclaimer validated at [facility]. This Zena Disclaimer test has [...] Emergency Use Authorization for Coronavirus Zena Disclaimer during the Public Health Emergency) Zena Disclaimer [...] is terminated or revoked sooner. PERFORMED BY: [facility] [place] [address] PATHOLOGIST DIRECTOR [employer]IC [employer]ING ESTEBAN REAGAN M.D. [facility] Comment on above: Performed By: #### S HUNTER GRANADOSID-19 ZENA #### [facility] [address] [place] [address] [facility] Zena Ag Negativeon 09-05-19 Zena Ag Negative Negative Normal Negative [facility] Comment on above: Result Comment: This is a duplicate Zena SARS Antigen (RANJAN) result to be used for statistical tracking purpose only. PERFORMED BY: [facility] [address] [place] [address] PATHOLOGIST DIRECTOR TRAFFIC AND PLANNING ESTEBAN REAGAN M.D. Performed By: #### S ROBERTA COVID-19 ZENA #### [facility] [address] [id number] [facility] Vital Signs Date Time Vital Sign Value Performing Clinician Facility 01-04-2025 10:50-0400 Body height 157.5 cm Yair Chaney MD Work Phone: [facility] 01-04-2025 10:50-0400 Body mass index (BMI) [Ratio] 20.69 kg/m2 Yair Chaney MD Work Phone: [facility] 01-04-2025 10:50-0400 Body weight 51.3 kg Yair Chaney MD Work Phone: [facility] 01-04-2025 10:50-0400 Diastolic blood pressure 66 mm[Hg] Yair Chaney MD Work Phone: [facility] 01-04-2025 10:50-0400 Heart rate 61 /min Yair Chaney MD Work Phone: [facility] 01-04-2025 10:50-0400 SaO2% (BldA) [Mass fraction] 98 % Yair Chaney MD Work Phone: [facility] 01-04-2025 10:50-0400 Systolic blood pressure 156 mm[Hg] Yair Chaney MD Work Phone: [facility] 01-03-2025 11:36-0400 Diastolic blood pressure 74 mm[Hg] Cassius Jiménez MD Work Phone: [facility] 01-03-2025 11:36-0400 Heart rate 56 /min Cassius Jiménez MD Work Phone: [facility] 01-03-2025 11:36-0400 Systolic blood pressure 183 mm[Hg] Cassius Jiménez MD Work Phone: [facility] 01-03-2025 10:14-0400 Body mass index (BMI) [Ratio] 20.81 kg/m2 Cassius Jiménez MD Work Phone: [facility] 01-03-2025 10:14-0400 Body weight 51.6 kg Cassius Jiménez MD Work Phone: [facility] Comment on above: with shoes 11-14-2024 12:16-0400 Body mass index (BMI) [Ratio] 20.78 kg/m2 Juliano Chase [employer] Work Phone: [facility] 11-14-2024 12:16-0400 Body temperature 97.39 [degF] Juliano Chase [employer] Work Phone: [facility] 11-14-2024 12:16-0400 Body weight 49.9 kg Juliano Chase [employer] Work Phone: [facility] 11-14-2024 12:16-0400 Diastolic blood pressure 70 mm[Hg] Juliano Chase [employer] Work Phone: [facility] 11-14-2024 12:16-0400 Heart rate 69 /min Juliano Chase [employer] Work Phone: [facility] 11-14-2024 12:16-0400 SaO2% (BldA) [Mass fraction] 98 % Juliano Chase [employer] Work Phone: [facility] 11-14-2024 12:16-0400 Systolic blood pressure 126 mm[Hg] Juliano Chase [employer] Work Phone: [facility] 10-01-2024 10:24-0500 Diastolic blood pressure 53 mm[Hg] Isaac Matson MD Work Phone: [facility] 10-01-2024 10:24-0500 Heart rate 64 /min Isaac Matson MD Work Phone: [facility] 10-01-2024 10:24-0500 Systolic blood pressure 151 mm[Hg] Isaac Matson MD Work Phone: [facility] 07-05-2024 08:53-0500 Body height 157.5 cm Yair Chaney MD Work Phone: [facility] 07-05-2024 08:53-0500 Body mass index (BMI) [Ratio] 19.96 kg/m2 Yair Chaney MD Work Phone: [facility] 07-05-2024 08:53-0500 Body weight 49.5 kg Yair Chaney MD Work Phone: [facility] 07-05-2024 08:53-0500 Diastolic blood pressure 60 mm[Hg] Yair Chaney MD Work Phone: [facility] 07-05-2024 08:53-0500 Heart rate 62 /min Yair Chaney MD Work Phone: [facility] 07-05-2024 08:53-0500 SaO2% (BldA) [Mass fraction] 97 % Yair Chaney MD Work Phone: [facility] 07-05-2024 08:53-0500 Systolic blood pressure 132 mm[Hg] Yair Chaney MD Work Phone: [facility] 06-21-2024 10:42-0400 Body height 157.5 cm Yair Chaney MD Work Phone: [facility] 06-21-2024 10:42-0400 Body mass index (BMI) [Ratio] 20.12 kg/m2 Yair Chaney MD Work Phone: [facility] 06-21-2024 10:42-0400 Body weight 49.9 kg Yair Chaney MD Work Phone: [facility] 06-21-2024 10:42-0400 Diastolic blood pressure 70 mm[Hg] Yair Chaney MD Work Phone: [facility] 06-21-2024 10:42-0400 Heart rate 57 /min Yair Wattar MD Work Phone: [facility] 06-21-2024 10:42-0400 SaO2% (BldA) [Mass fraction] 98 % Yair Chaney MD Work Phone: [facility] 06-21-2024 10:42-0400 Systolic blood pressure 160 mm[Hg] Yair Chaney MD Work Phone: [facility] 06-14-2024 11:08-0400 Diastolic blood pressure 63 mm[Hg] Isaac Matson MD Work Phone: [facility] 06-14-2024 11:08-0400 Heart rate 58 /min Isaac Matson MD Work Phone: [facility] 06-14-2024 11:08-0400 Systolic blood pressure 164 mm[Hg] Isaac Matson MD Work Phone: [facility] 05-24-2024 12:22-0400 Body mass index (BMI) [Ratio] 20.36 kg/m2 Cassius Jiménez MD Work Phone: [facility] 05-24-2024 12:22-0400 Body weight 50.5 kg Cassius Jiménez MD Work Phone: [facility] 05-24-2024 12:22-0400 Diastolic blood pressure 79 mm[Hg] Cassius Jiménez MD Work Phone: [facility] 05-24-2024 12:22-0400 Heart rate 74 /min Cassius Jiménez MD Work Phone: [facility] 05-24-2024 12:22-0400 Systolic blood pressure 167 mm[Hg] Cassius Jiménez MD Work Phone: [facility] 05-19-2024 12:30-0400 Diastolic blood pressure 88 mm[Hg] Dung Matthews [facility] 05-19-2024 12:30-0400 Mean blood pressure 113 mm[Hg] Mohamad Mouchli [facility] 05-19-2024 12:30-0400 Systolic blood pressure 163 mm[Hg] Mohamad Mouchli [facility] 05-19-2024 12:27-0400 Blood Pressure Location Mohamad Mouchli [facility] 05-19-2024 12:27-0400 Diastolic blood pressure 74 mm[Hg] Mohamad Mouchli [facility] 05-19-2024 12:27-0400 Heart rate 80 /min Mohamad Mouchli [facility] 05-19-2024 12:27-0400 Respiratory rate 16 /min Mohamad Mouchli [facility] 05-19-2024 12:27-0400 Systolic blood pressure 161 mm[Hg] Mohamad Mouchli [facility] 02-18-2024 14:11-0400 Blood Pressure Location Mohamad Mouchli [facility] 02-18-2024 14:11-0400 Diastolic blood pressure 82 mm[Hg] Mohamad Mouchli [facility] 02-18-2024 14:11-0400 Heart rate 58 /min Mohamad Mouchli [facility] 02-18-2024 14:11-0400 Respiratory rate 16 /min Mohamad Mouchli [facility] 02-18-2024 14:11-0400 Systolic blood pressure 157 mm[Hg] Mohamad Mouchli [facility] 02-04-2024 13:05-0400 Diastolic blood pressure 85 mm[Hg] Mohamad Mouchli [facility] 02-04-2024 13:05-0400 Mean blood pressure 110 mm[Hg] Mohamad Mouchli [facility] 02-04-2024 13:05-0400 Systolic blood pressure 160 mm[Hg] Mohamad Mouchli [facility] 02-04-2024 13:01-0400 Blood Pressure Location Mohamad Mouchli [facility] 02-04-2024 13:01-0400 Diastolic blood pressure 79 mm[Hg] Mohamad Mouchli [facility] 02-04-2024 13:01-0400 Heart rate 59 /min Mohamad Mouchli [facility] 02-04-2024 13:01-0400 Respiratory rate 16 /min Mohamad Mouchli [facility] 02-04-2024 13:01-0400 Systolic blood pressure 160 mm[Hg] Mohamad Mouchli [facility] 12-15-2023 15:13-0400 Diastolic blood pressure 72 mm[Hg] Marry Yair [facility] 12-15-2023 15:13-0400 Mean blood pressure 98 mm[Hg] Marry Yair [facility] 12-15-2023 15:13-0400 Systolic blood pressure 150 mm[Hg] Marry Yair [facility] 12-15-2023 15:02-0400 Blood Pressure Location Marry Yair [facility] 12-15-2023 15:02-0400 Body temperature 97.52 [degF] Marry Yair [facility] 12-15-2023 15:02-0400 Diastolic blood pressure 73 mm[Hg] Marry Yair [facility] 12-15-2023 15:02-0400 Heart rate 62 /min Marry Yair [facility] 12-15-2023 15:02-0400 Systolic blood pressure 154 mm[Hg] Marry Yair [facility] 10-09-2023 14:04-0500 Diastolic blood pressure 68 mm[Hg] Isaac Matson MD Work Phone: [facility] 10-09-2023 14:04-0500 Heart rate 80 /min Isaac Matson MD Work Phone: [facility] 10-09-2023 14:04-0500 Systolic blood pressure 153 mm[Hg] Isaac Matson MD Work Phone: [facility] 10-08-2023 10:31-0500 Diastolic blood pressure 72 mm[Hg] Marry Yair [facility] 10-08-2023 10:31-0500 Mean blood pressure 103 mm[Hg] Marry Yair [facility] 10-08-2023 10:31-0500 Systolic blood pressure 164 mm[Hg] Marry Yair [facility] 10-08-2023 10:25-0500 Blood Pressure Location Marry Yair [facility] 10-08-2023 10:25-0500 Body temperature 96.8 [degF] Marry Yair [facility] 10-08-2023 10:25-0500 Diastolic blood pressure 73 mm[Hg] Marry Mazariegos [facility] 10-08-2023 10:25-0500 Heart rate 61 /min Marry Mazariegos [facility] 10-08-2023 10:25-0500 Systolic blood pressure 177 mm[Hg] Marry Mazariegos [facility] 06-12-2023 14:51-0400 Diastolic blood pressure 69 mm[Hg] Isaac Matson MD Work Phone: [facility] 06-12-2023 14:51-0400 Heart rate 78 /min Isaac Matson MD Work Phone: [facility] 06-12-2023 14:51-0400 Systolic blood pressure 154 mm[Hg] Isaac Matson MD Work Phone: [facility] 04-28-2023 14:38-0400 Body height 157.5 cm Yair Chaney MD Work Phone: [facility] 04-28-2023 14:38-0400 Body weight 50.35 kg Yair Chaney MD Work Phone: [facility] 04-28-2023 14:38-0400 Diastolic blood pressure 72 mm[Hg] Yair Chaney MD Work Phone: [facility] 04-28-2023 14:38-0400 Heart rate 60 /min Yair Chaney MD Work Phone: [facility] 04-28-2023 14:38-0400 SaO2% (BldA) [Mass fraction] 99 % Yair Chaney MD Work Phone: [facility] 04-28-2023 14:38-0400 Systolic blood pressure 148 mm[Hg] Yair Chaney MD Work Phone: [facility] 12-23-2022 12:58-0400 Diastolic blood pressure 78 mm[Hg] Isaac Matson MD Work Phone: [facility] 12-23-2022 12:58-0400 Heart rate 78 /min Isaac Matson MD Work Phone: [facility] 12-23-2022 12:58-0400 Systolic blood pressure 163 mm[Hg] Isaac Maston MD Work Phone: [facility] Encounters Encounter Date Encounter Type Care Provider Facility Start: 07-25-2025 ambulatory Srinivasan Lezama Facility :[facility] Alfredo Start: 01-27-2025 End: 01-27-2025 Lab Drop off Srinivasan FordZuleika Lise [facility] Start: 01-27-2025 End: 01-27-2025 ambulatory Srinivasan Lezama Facility:[facility] Tierney hodgson Start: 01-11-2025 End: 01-11-2025 Orders Only Cassius Jiménez MD Work Phone: Geriatrics Start: 01-04-2025 End: 01-04-2025 Patient encounter procedure Rachael Chaney MD Work Phone: Cardiology Comment on above: Tricuspid valve insu fficiency, unspecified etiology (Primary Dx); Hypertension, unspecified type; Pulmonary hypertension (HCC); Vertigo Start: 01-04-2025 End: 01-04-2025 ambulatory SRINIVASAN Youngblood LISE Facility:[facility] Start: 01-03-2025 End: 01-03-2025 Patient encounter procedure Cassius Jiménez MD Work Phone: Geriatrics Comment on above: Memory impairment (P rimary Dx); B12 deficiency; Seizure disorder (HCC); Dizziness; Hearing loss, unspecified hearing loss type, unspecified laterality; Anxiety; DENZEL (obstructive sleep apnea); Dysphagia, unspecified type; Orthostatic dizziness Start: 01-03-2025 End: 01-03-2025 ambulatory SELF Facility:[facility] Start: 11-26-2024 End: 11-27-2024 ambulatory Zack Rooney Facility:[facility] Start: 11-26-2024 End: 11-27-2024 Patient encounter procedure Zack Rooney [facility] Start: 11-16-2024 End: 11-16-2024 ambulatory Srinivasan YoungbloodZuleika Lezama Facility:[facility] Tierney simmonse Start: 11-14-2024 End: 11-14-2024 Office outpatient visit 25 minutes Juliano Chase [employer] Work Phone: [facility] Comment on above: Strep throat exposur e (Primary Dx); Pharyngitis, unspecified etiology; Nasal congestion Start: 11-14-2024 End: 11-14-2024 ambulatory JULIANO CHASE Not Available Start: 10-01-2024 End: 10-01-2024 Patient encounter procedure Isaac Matson MD Work Phone: Neurology Comment on above: Headache disorder (P rimary Dx) Start: 10-01-2024 End: 10-01-2024 ambulatory ISAAC MATSON Facility:[facility] Start: 09-27-2024 End: 09-27-2024 ambulatory Cassius Jiménez MD Work Phone: Geriatrics Comment on above: Memantine 5 MG HCL Start: 09-21-2024 End: 09-21-2024 ambulatory Zack Roonye Facility:[facility] Start: 09-21-2024 End: 09-21-2024 Patient encounter procedure Zack Rooney [facility] Start: 08-30-2024 End: 08-30-2024 ambulatory Zack Rooney Facility:[facility] Start: 08-30-2024 End: 08-30-2024 Patient encounter procedure Zack Rooney [facility] Start: 08-11-2024 End: 08-11-2024 ambulatory Dung Matthews Facility:[facility] Start: 08-10-2024 Office outpatient ne w 30 minutes Ja Montgomery [facility] Start: 08-10-2024 ambulatory Ja Montgomery yovanny [facility] Start: 08-03-2024 End: 08-03-2024 Lab Drop off Srinivasan YoungbloodZuleika Lezama [facility] Start: 08-03-2024 End: 08-03-2024 ambulatory Srinivasan YoungbloodZuleika Lise Facility:[facility] Tierney hodgson Start: 07-22-2024 End: 07-22-2024 ambulatory Srinivasan YoungbloodZuleika Lise Facility:[facility] Tierney hodgson Start: 07-05-2024 End: 07-05-2024 ambulatory SRINIVASAN LEZAMA Facility:[facility] Start: 07-05-2024 End: 07-05-2024 Patient encounter procedure Rachael Chaney MD Work Phone: Cardiology Comment on above: Hypertension, unspec ified type (Primary Dx); Pulmonary hypertension (HCC); Tricuspid valve insufficiency, unspecified etiology Start: 06-28-2024 End: 06-28-2024 ambulatory Cassius Jiménez MD Work Phone: Geriatrics Comment on above: Memory impairment (P rimary Dx); Vitamin B12 deficiency; Dizziness; Hearing loss, unspecified hearing loss type, unspecified laterality; Anxiety Start: 06-28-2024 End: 06-28-2024 Telemedicine consultation with patient Cassius Jiménez MD Work Phone: Geriatrics Start: 06-21-2024 End: 06-21-2024 ambulatory SRINIVASAN LEZAMA Facility:[facility] Start: 06-21-2024 End: 06-21-2024 Patient encounter procedure Rachael Chaney MD Work Phone: Cardiology Comment on above: Hypertension, unspec ified type (Primary Dx); Prescription refill; SOB (shortness of breath); H/O chest pain Start: 06-18-2024 ambulatory SRINIVASAN LEZAMA Facility: [facility] Start: 06-18-2024 End: 06-18-2024 Subsequent hospital visit by physician [facility] (Istat/1.5) Work Phone: [facility] Radiology MRI Comment on above: Memory impairment [R 41.3] Start: 06-14-2024 End: 06-14-2024 Patient encounter procedure Isaac Matson MD Work Phone: Neurology Comment on above: Headache disorder (P rimary Dx) Start: 06-14-2024 End: 06-14-2024 ambulatory ISAAC MATSON Facility:[facility] Start: 06-02-2024 End: 06-02-2024 ambulatory SR[facility]IV[facility]ANSCOT [facility] Start: 05-28-2024 End: 05-28-2024 ambulatory JOSE MARTIN MORRIS Facility:[facility] Start: 05-28-2024 End: 05-28-2024 Patient encounter procedure Darrell Gallo PhD Work Phone: Neuropsychology Comment on above: 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); Sensorineural hearing loss (SNHL), unspecified laterality; Anxiety and depression Start: 05-24-2024 End: 05-25-2024 ambulatory SRINIVASAN LEZAMA Facility:[facility] Start: 05-24-2024 End: 05-25-2024 Patient encounter procedure Cassius Jiménez MD Work Phone: Geriatrics Comment on above: Memory impairment (P rimary Dx); Vitamin B12 deficiency; Sensorineural hearing loss (SNHL), unspecified laterality; Anxiety and depression; Vitamin D deficiency Start: 05-19-2024 End: 05-19-2024 ambulatory Dung Matthews Facility:[facility] Start: 05-19-2024 End: 05-19-2024 Patient encounter procedure Dung Matthews [facility] Start: 04-22-2024 End: 04-22-2024 Telephone encounter Xander Hooker MD Work Phone: [facility] Comment on above: Memory Loss Start: 04-20-2024 End: 04-20-2024 ambulatory Srinivasan Lezama Facility:[facility] Tierney hodgson Start: 04-12-2024 End: 04-12-2024 ambulatory CHELY Del Cid MICHELSTEFAN Not Available Start: 03-30-2024 ambulatory Isaac Matson MD Work Phone: Neurology Start: 03-30-2024 Patient encounter procedure Isaac Maston MD Work Phone: Neurology Comment on above: Mental Evaluation Start: 03-11-2024 End: 03-11-2024 ambulatory [employer] Roxane Heller Facility:[facility] Tierney hodgson Start: 03-01-2024 End: 03-01-2024 ambulatory SRINIVASAN LEZAMA [facility] Start: 02-27-2024 End: 02-27-2024 ambulatory ISAAC MATSON Facility:[facility] Start: 02-27-2024 End: 02-27-2024 Patient encounter procedure Isaac Matson MD Work Phone: Neurology Comment on above: Forgetfulness (Prima ry Dx) Start: 02-27-2024 End: 02-27-2024 Telemedicine consultation with patient Isaac Matson MD Work Phone: Neurology Start: 02-18-2024 End: 02-18-2024 ambulatory Dung Matthwes Facility:[facility] Start: 02-18-2024 End: 02-18-2024 Patient encounter procedure Dung Matthews [facility] Start: 02-04-2024 End: 02-04-2024 ambulatory Dung Matthews Facility:[facility] Start: 02-04-2024 End: 02-04-2024 Lab Drop off Dung Matthews [facility] Start: 02-04-2024 End: 02-04-2024 ambulatory Dung Matthews Facility:[facility] Start: 02-04-2024 End: 02-04-2024 Patient encounter procedure Dung Matthews [facility] Start: 02-04-2024 End: 02-04-2024 ambulatory Dung Matthews Facility:[facility] Start: 02-04-2024 End: 02-04-2024 Patient encounter procedure Dung Matthews [facility] Start: 01-20-2024 End: 01-20-2024 ambulatory [facility] Start: 01-13-2024 [facility] Start: 12-15-2023 End: 12-15-2023 ambulatory Marry Mazariegos Facility:[facility] Start: 12-15-2023 End: 12-15-2023 Patient encounter procedure Marry Raisa Yair [facility] Start: 12-15-2023 End: 12-15-2023 ambulatory Marry Mazariegos Facility:[facility] Start: 12-15-2023 End: 12-15-2023 Patient encounter procedure Marry Mazariegos [facility] Start: 11-05-2023 End: 11-05-2023 ambulatory Srinivasan Lezama Facility:[facility] Start: 11-05-2023 End: 11-05-2023 Patient encounter procedure Srinivasan Lezama [facility] Start: 10-21-2023 End: 10-21-2023 ambulatory Srinivasan Lezama Facility:[facility] [place] [facility] Start: 10-09-2023 End: 10-09-2023 Patient encounter procedure Isaac Matson MD Work Phone: Neurology Comment on above: Dizziness (Primary D x) Start: 10-08-2023 End: 10-08-2023 ambulatory [facility]an [facility]ama [facility] Start: 10-08-2023 End: 10-08-2023 Patient encounter procedure Marry Kline Yair [facility] Start: 09-09-2023 ambulatory Srinivasan Lezama Facility : [facility] Start: 09-08-2023 End: 09-08-2023 ambulatory Srinivasan Lezama Facility: [facility] [place] [facility] Start: 08-12-2023 ambulatory Srinivasan Lezama Facility: [facility] Start: 08-11-2023 End: 08-11-2023 ambulatory Srinivasan Lezama Facility: [facility] [place] [facility] Start: 07-31-2023 End: 07-31-2023 ambulatory Roxane L Arron [facility]: [facility] [place] [facility] Start: 07-29-2023 End: 07-29-2023 ambulatory Srinivasan Lezama Facility:[facility] Start: 07-29-2023 End: 07-29-2023 Lab Drop off Srinivasan Lezama [facility] Start: 07-23-2023 End: 07-23-2023 Lab Drop off Roxane L Arron [facility] Start: 07-11-2023 End: 07-11-2023 ambulatory RACHAEL CHANEY [facility] Start: 06-12-2023 End: 06-12-2023 Patient encounter procedure Isaac Matson MD Work Phone: Neurology Comment on above: Dizziness and giddin ess (Primary Dx); Vertigo Start: 06-11-2023 End: 06-11-2023 Subsequent hospital visit by physician [facility] Work Phone: Nuclear Medicine Comment on above: Chest pain, unspecif ied type [R07.9] Start: 05-12-2023 Telephone encounter Rachael figueroa MD Work Phone: Internal Medicine Comment on above: Request Outside [facility] Records Start: 04-28-2023 End: 04-28-2023 Patient encounter procedure Rachael Chaney MD Work Phone: Cardiology Comment on above: Chest pain, unspecif ied type (Primary Dx); SOB (shortness of breath) Start: 01-29-[address] JULIANO SHARMA . Facil ity:[facility] Start: 01-21-2023 End: 01-22-[address] JULIANO SHARMA . 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 Facility:[facility] Start: 07-02-2022 End: 07-31-[address] JULIANO SHARMA . Facility:[facility] Start: 06-11-2022 End: 06-12-[address] JULIANO SHARMA . Facility:[facility] Start: 05-29-2022 End: 05-30-[address] JULIANO SHARMA . Facility:[facility] Start: 05-07-2022 End: 05-07-2022 ambulatory MANA JONES . Facility:[facility] Start: 03-14-2022 End: 03-15-[address] DOCTOR BLAKE Facility:[facility] Procedures Date Procedure Procedure Detail Performing Clinician Start: 01-04-2025 Ecg routine ecg w/le ast 12 lds i&r only [facility] Provider Start: 11-15-2024 Iadna streptococcus group a amplified probe tq Sameer Yeager DO Work Phone: Start: 08-10-2024 Fundus photography w/interpretation & report Ja Cordoba Start: 08-10-2024 OCT No Charge Ja Cordoba Start: 06-21-2024 Ecg routine ecg w/le ast 12 lds i&r only [facility] Provider Start: 06-18-2024 3d rendering w/interp&postproc diff work station Cassius Jiménez MD Work Phone: Start: 06-18-2024 Mri brain brain stem w/o contrast material Cassius Jiménez MD Work Phone: Start: 06-11-2023 Myocardial spect mul tiple studies Rachael Chaney MD Work Phone: Start: 04-28-2023 Ecg routine ecg w/le ast 12 lds i&r only [facility] Provider Start: 01-16-2023 Mri brain brain stem w/o contrast material Isaac Matson MD Work Phone: Start: 10-01-2021 Colonoscopy Roxane lua Comment on above: [facility] Dilatation and curet tage: routine Roxane Arron Comment on above: pt states this was y ears ago H/O: hysterectomy H/O: hysterectomy Taraam priscila Matthews Plan of Treatment Date Care Activity Detail Author Start: 05-07-2032 Urine microalbumin profile DTa P,Tdap,Td Vaccine (2 - Tdap) [facility] Start: 07-25-2025 ambulatory Ambulatory Facility:[facility] Start: 07-18-2025 End: 07-18-2025 Patient encounter procedure 07/18/2025 9:00 AM EST Office Visit Geriatrics [address] [place] [address] Cassius Jiménez MD [address] [place] [address] 6 month in person follow up Geriatrics Comment on above: 6 month in person fo llow up Start: 07-08-2025 End: 07-08-2025 Patient encounter procedure 07/08/2025 10:00 AM EST Office Visit Cardiology [address] [place] [address] [place] [address] [place] [address] Return in about 6 months (around 07/07/2025). Cardiology Comment on above: Return in about 6 mo nths (around 07/07/2025). Start: 07-07-2025 End: 01-04-2026 Echocardiography ECHO Cardiology Routine Tricuspid valve insufficiency, unspecified etiology Expected: 07/07/2025, Expires: 01/04/2026 [facility] Work Phone: Comment on above: Expected: 07/07/2025 , Expires: 01/04/2026 Start: 03-18-2025 End: 03-18-2025 Patient encounter procedure 03/18/2025 11:00 AM EDT Office Visit Neurology [address] [place] [address] [place] [address] [place] [address] Return in about 6 months (around 03/31/2025). Neurology Comment on above: Return in about 6 mo nths (around 03/31/2025). Start: 02-10-2025 End: 02-10-2025 Patient encounter procedure 02/10/2025 10:30 AM EDT Office Visit Cardiology [address] [place] [address] echo Cardiology Comment on above: echo Start: 01-04-2025 End: 01-04-2025 Patient encounter procedure 01/04/2025 11:00 AM EDT Office Visit Cardiology [address] [place] [address] [place] [address] [place] [address] Return in about 6 months (around 01/02/2025). Cardiology Comment on above: Return in about 6 mo nths (around 01/02/2025). Start: 01-03-2025 End: 01-03-2025 Patient encounter procedure 01/03/2025 10:30 AM EDT Office Visit Geriatrics [address] [place] [address] Cassius Jiménez MD [address] [facility] [address] [place] [address] 6 month in person follow up Geriatrics Comment on above: 6 month in person fo llow up Start: 10-11-2024 End: 10-11-2024 Patient encounter procedure 10/11/2024 1:40 PM EST Office Visit Neurology [address] [place] [address] [place] [address] [place] [address] 1 YEAR FOLLOW UP Neurology Comment on above: 1 YEAR FOLLOW UP Start: 10-01-2024 End: 10-01-2024 Patient encounter procedure 10/01/2024 11:00 AM EST Office Visit Neurology [address] [place] [address] [place] [address] [place] [address] Return in about 3 months (around 09/14/2024). Neurology Comment on above: Return in about 3 mo nths (around 09/14/2024). Start: 09-01-2024 Advance Directive Discussion Advance Directive Discussion [facility] Start: 07-05-2024 End: 07-05-2024 Patient encounter procedure 07/05/2024 9:00 AM EST Office Visit Cardiology [address] [place] [address] [place] [address] [place] [address] Return in about 2 weeks (around 07/05/2024). Cardiology Comment on above: Return in about 2 we eks (around 07/05/2024). Start: 06-21-2024 End: 06-21-2024 Patient encounter procedure 06/21/2024 11:00 AM EDT Office Visit Cardiology [address] [place] [address] [place] [address] [place] [address] Return in about 1 year (around 06/17/2024). Cardiology Comment on above: Return in about 1 ye ar (around 06/17/2024). Start: 06-18-2024 End: 06-18-2024 Patient encounter procedure 06/18/2024 6:00 PM EDT Appointment [facility] [place] [address] [place] [address] [facility] Radiology MRI Comment on above: MRI BRAIN WO [facility] Start: 06-14-2024 End: 06-14-2024 Patient encounter procedure 06/14/2024 11:40 AM EDT Office Visit Neurology [address] [place] [address] [place] [address] [place] [address] Review Test Results Neurology Comment on above: Review Test Results Start: 06-02-2024 End: 06-02-2024 Patient encounter procedure 06/02/2024 3:00 PM EDT Results Only [facility] [address] [place] [address] labs [facility] Comment on above: labs Start: 05-24-2024 End: 05-24-2024 Patient encounter procedure 05/24/2024 1:00 PM EDT Office Visit Geriatrics [address] [place] [address] Cassius Jiménez MD [address] [place], [place] [id number] [facility] Comment on above: [facility] Start: 05-02-2024 Covid-19 Vaccine () Covid-19 Vaccine () [facility] Start: 05-02-2024 Covid-19 Vaccine () Covid-19 Vaccine () [facility] Start: 05-02-2024 Influenza vaccination Influenza Vacc ine (#1) [facility] Start: 03-01-2024 End: 03-01-2024 Patient encounter procedure 03/01/2024 11:45 AM EDT Results Only [facility] [address] [place] [address] [facility] Start: 02-27-2024 End: 05-28-2024 Cobalamin (Vitamin B12) [Mass/volume] in Serum or Plasma VITAMIN B12 Lab Routine Forgetfulness Expected: 02/27/2024, Expires: 05/28/2024 [facility] Work Phone: Comment on above: Expected: 02/27/2024 , Expires: 05/28/2024 Start: 02-27-2024 End: 05-28-2024 Methylmalonate [Moles/volume] in Serum or Plasma METHYLMALONIC ACID Lab Routine Forgetfulness Expected: 02/27/2024, Expires: 05/28/2024 [facility] Comment on above: Expected: 02/27/2024 , Expires: 05/28/2024 Start: 09-01-2023 Advance Directive Discussion Advance Directive Discussion [facility] Start: 09-01-2023 Depression Assessment Depression Ass essment [facility] Start: 09-01-2023 Covid-19 Vaccine ( season) Covid-19 Vaccine () [facility] Start: 05-02-2023 Influenza vaccination [facility] [place] Start: 04-28-2023 End: 06-28-2023 Lipid 1996 panel - Serum or Plasma LIPID PANEL BASIC Lab Routine Chest pain, unspecified type Expected: 04/28/2023, Expires: 06/28/2023 [facility] Work Phone: Comment on above: Expected: 04/28/2023 , Expires: 06/28/2023 Start: 09-01-2022 ADVANCE DIRECTIVE DISCUSSION ADVANCE DIRECTIVE DISCUSSION [facility] Start: 09-01-2022 DEPRESSION ASSESSMENT DEPRESSION ASS ESSMENT [facility] Start: 07-20-2021 COVID-19 VACCINE (4 - Booster for Pfizer series) COVID-19 VACCINE (4 - Booster for Pfizer series) [facility] Start: 07-20-2021 COVID-19 VACCINE (4 - Pfizer series) COVID-19 VACCINE (4 - Pfizer series) [facility] Start: 2008 BONE DENSITY BONE DENSITY [facility] Start: 2008 Bone Density Screening Bone Density Screening [facility] Start: 2008 Pneumococcal Vaccine : 65+ (1 - PCV) Pneumococcal Vaccine: 65+ (1 - PCV) [facility] Start: 2008 PNEUMOCOCCAL: 65+ (1 - PCV) PNEUMOCOCCAL: 65+ (1 - PCV) [facility] Start: 2008 Screening for osteoporosis Bone Dens ity Screening [facility] Start: 2003 RSV Vaccine (1 - 1-d ose 60+ series) RSV Vaccine (1 - 1-dose 60+ series) [facility] Start: 1993 SHINGRIX VACCINE (1 of 2) LIGHT GRIX VACCINE (1 of 2) [facility] Start: 1988 [facility] Start: 1988 Diabetes Screening Diabetes Screenin g [facility] Start: 1962 Urine microalbumin profile [facility] Start: 1961 Anxiety Screening Anxiety Screening [facility] Start: 1961 Depression Screening Depression Scre ening [facility] BACH SCREENING TEST BACH SCREENI NG TEST Procedures Routine Complaints of memory disturbance Ordered: 04/14/2024 [facility] Work Phone: Comment on above: Ordered: 04/14/2024 End: 04-28-2024 ECG COMPLETE ECG COMPLETE ECG Routine Chest pain, unspecified type 1 Occurrences starting 04/28/2023 until 04/28/2024 [facility] Work Phone: Comment on above: 1 Occurrences starti ng 04/28/2023 until 04/28/2024 ECG COMPLETE ECG COMPLETE ECG 04/28/2023 2:42 PM EDT [facility] ECG COMPLETE [facility] Work Phone: Comment on above: Ordered: 06/21/2024 ECG COMPLETE [facility] Comment on above: Ordered: 01/04/2025 End: 04-28-2024 Echocardiography ECHO Cardiology Routine Chest pain, unspecified type 1 Occurrences starting 04/28/2023 until 04/28/2024 [facility] Work Phone: Comment on above: 1 Occurrences starti ng 04/28/2023 until 04/28/2024 Mri brain brain stem w/o contrast material MRI BRAIN WO IVCON Radiology Routine Ataxia following cerebral infarction Vertigo Ordered: 12/23/2022 [facility] Work Phone: Comment on above: Ordered: 12/23/2022 End: 05-27-2024 NM CARDIAC PERF STRESS/PHARM NM CARDIAC PERF STRESS/PHARM Radiology Routine Chest pain, unspecified type 1 Occurrences starting 04/28/2023 until 05/27/2024 [facility] Work Phone: Comment on above: 1 Occurrences starti ng 04/28/2023 until 05/27/2024 End: 01-03-2026 Polysomnogram POLYSOMNOGRAM (PSG) Procedures Routine DENZEL (obstructive sleep apnea) 1 Occurrences starting 01/03/2025 until 01/03/2026 [facility] Work Phone: Comment on above: 1 Occurrences starti ng 01/03/2025 until 01/03/2026 SWALLOW EVALUATION SWALLOW EVALU ATION Procedures Routine Dysphagia, unspecified type Ordered: 01/03/2025 [facility] Comment on above: Ordered: 01/03/2025 End: 12-24-2023 US CAROTID ARTERIES [facility] US CAROTID ARTERIES [facility] Vascular Lab Routine Ataxia following cerebral infarction Dizziness and giddiness 1 Occurrences starting 12/23/2022 until 12/24/2023 [facility] Work Phone: Comment on above: 1 Occurrences starti ng 12/23/2022 until 12/24/2023 [facility] Immunizations Immunization Date Immunization Notes Care Provider [facility] 06-14-2024 influenza virus vaccine, unspecified formulation Srinivasan Lezama [place] 06-23-2023 influenza virus vaccine, unspecified formulation Marry Mazariegos [place] 11-20-2022 pneumococcal 20-valent conjugate vaccine Roxane Arron [facility] 06-21-2022 influenza virus vaccine, unspecified formulation Yair Chaney MD Work Phone: [facility] 05-25-2021 SARS-CoV-2 (COVID-19 ) mRNA BNT-162b2 vax Roxane Arron [facility] Comment on above: Result Comment: 2022: [id number] 05-18-2021 influenza virus vaccine, unspecified formulation Roxane Arron [facility] 05-18-2021 Influenza, High-dose Seasonal, Quadrivalent, Preservative Free Juliano Chase NP Work Phone: [facility] 10-20-2020 SARS-CoV-2 (COVID-19 ) mRNA BNT-162b2 vax Roxane Arron [facility] Comment on above: Result Comment: 2022: [id number] 09-29-2020 SARS-CoV-2 (COVID-19 ) mRNA BNT-162b2 vax Roxane Arron [facility] Comment on above: Result Comment: 2022: [id number] 06-06-2020 influenza virus vaccine, unspecified formulation Roxane Arron [facility] 05-26-2019 influenza virus vaccine, unspecified formulation Roxane Arron [facility] 2019 influenza virus vaccine, unspecified formulation Roxane Arron [facility] 05-14-2019 zoster vaccine recombinant Roxane Arron [facility] 03-18-2019 zoster vaccine recombinant Roxane Arron [facility] 06-02-2018 influenza virus vaccine, unspecified formulation Roxane Arron [facility] 06-12-2017 influenza virus vaccine, unspecified formulation Roxane Arron [facility] 06-10-2016 influenza virus vaccine, unspecified formulation Roxane Arron [facility] 08-10-2015 pneumococcal conjugate vaccine, 13 valent Roxane Arron [facility] 06-07-2015 zoster vaccine, live Roxane Sc hwab [facility] 05-31-2015 influenza virus vaccine, unspecified formulation Roxane Arron [facility] NEGATED: Highlighted row has not occurred!05-19-2024 influenza virus vaccine, unspecified formulation Dung Sextonli [facility] Health Payers Date Payer Category Payer Private Health Insurance [id number] 2021 Medicaid [employer] MEDICARE A DVANTAGE [id number] 2021 Medicare [id number] 2021 Medicare (Managed Care[place] [id number] 1959 Medicare [id number] 1959 Unknown [id number] 1943 Unknown [id number] 2.16.840.1.639165.3.579.2. 593 1943 Unknown [id number] 2.16.840.1.212130.3.579.2. 593 1943 Unknown [id number] 2.16.840.1.256999.3.579.2. 593 1943 Unknown [id number] 2.16.840.1.041520.3.579.2. 593 1943 Unknown [id number] 2.16.840.1.567566.3.579.2. 593 1943 Unknown [id number] 2.16.840.1.566490.3.579.2. 593 1943 Unknown [id number] 2.16.840.1.414987.3.579.2. 59 1943 Unknown [id number] 2.16.840.1.701598.3.579.2. 59 1943 Unknown [id number] 2.16.840.1.645857.3.579.2. 72 1943 Unknown [id number] 2.16.840.1.620404.3.579.2 72 1943 Unknown [id number] 2.16.840.1.585570.3.579.2 72 1943 Unknown [id number] 2.16.840.1.687676.3.579.2. 72 1943 Unknown [id number] 2.16.840.1.953127.3.579.2 72 1943 Unknown [id number] 2.16.840.1.016860.3.579.2. 72 1943 Unknown [id number] 2.16.840.1.557334.3.579.2. 72 1943 Unknown [id number] 2.16.840.1.996820.3.579.2. 72 1943 Unknown [id number] 2.16.840.1.515342.3.579.2 72 1943 Unknown [id number] 2.16.840.1.722235.3.579.2. 72 1943 Unknown [id number] 2.16.840.1.661763.3.579.2. 72 1943 Unknown [id number] 2.16.840.1.628528.3.579.2. 72 1943 Unknown [id number] 2.16.840.1.899016.3.579.2. 1943 Unknown [id number] 2.16.840.1.084168.3.579.2. 1943 Unknown [id number] 2.16.840.1.234297.3.579.2. 1943 Unknown [id number] 2.16.840.1.790936.3.579.2. 1943 Unknown [id number] 2.16.840.1.794989.3.579.2. 1943 Unknown [id number] 2.16.840.1.768113.3.579.2. 1943 Unknown [id number] 2.16.840.1.065545.3.579.2. 1943 Unknown [id number] 2.16.840.1.977694.3.579.2. 1347 1943 Unknown [id number] 2.16.840.1.701739.3.579.2. 1259 1943 Unknown [id number] 2.16.840.1.041933.3.579.2. 1259 1943 Unknown [id number] 2.16.840.1.960873.3.579.2. 1943 Unknown [id number] 2.16.840.1.821621.3.579.2. 1943 Unknown [id number] 2.16.840.1.549512.3.579.2. 72 1943 Unknown [id number] 2.16.840.1.555100.3.579.2. 1943 Unknown [id number] 2.16.840.1.405163.3.579.2. 727 1943 Unknown [id number] 2.16.840.1.174824.3.579.2. 727 1943 Unknown [id number] 2.16.840.1.170161.3.579.2. 727 1943 Unknown [id number] 2.16.840.1.934538.3.579.2. 727 1943 Unknown [id number] 2.16.840.1.105502.3.579.2. 727 1943 Unknown [id number] 2.16.840.1.559329.3.579.2. 72 1943 Unknown [id number] 2.16.840.1.505169.3.579.2. 72 1943 Unknown [id number] 2.16.840.1.375935.3.579.2. 727 1943 Unknown [id number] 2.16.840.1.921581.3.579.2. 727 1943 Unknown [id number] 2.16.840.1.286040.3.579.2. 727 Social History Date Type Detail Facility Start: 06-12-2023 End: 01-27-2025 Tobacco smoking status MIIS Never smoked tobacco [facility] Work Phone: Comment on above: denies denies use. Start: 07-02-2006 End: 01-03-2025 Alcohol intake Not Asked [facility] Start: 1945 Sex Assigned At Not on file [facility] [place] Start: 03-24-2023 End: 06-27-2024 History of Social function [facility] Start: 03-24-2023 End: 06-27-2024 Area Deprivation Index [facility] National Score (1-10 0), lower number is lower risk 61 [facility] Comment on above: denies denies use. Start: 06-14-2024 Tobacco use and exposure User of smokeless tobacco [facility] Has the electric, [employer] s, oil, or water company threatened to shut off services in your home in past 12Mo No [facility] Are you now , , , , never or living with a partner? [facility] How often to you hav e a drink containing alcohol? Never [facility] Do you feel stress - tense, restless, nervous, or anxious, or unable to sleep at night because your mind is troubled all the time - these days [OSQ] Only a little [facility] (I/We) worried [facility] (my/our) food would run out before (I/we) got money to buy more. Never true [facility] Start: 03-26-2023 Tobacco use and exposure Smoke less tobacco non-user [facility] Start: 11-14-2024 Alcoholic beverage intake Ex-drinker (finding) [facility] Start: 03-26-2023 Alcohol Comment 1-2 drinks les s than monthly in the past year, Caffeine intake: 2-3 cups per day coffee [facility] Sexual Orientation [facility] Sex Female (finding) [facility] Functional Status Date Assessment Result Facility 05-19-2024 Functional Status N/A [facility] 02-18-2024 Functional Status N/A [facility] 02-04-2024 Functional Status N/A [facility] 12-15-2023 Functional Status N/A [facility] 10-08-2023 Functional Status N/A [facility] Clinical Notes 11-15-2022 to 01-27-2025 Rachael Chaney MD - 01/04/2025 10:49 AM EDTPatiCassius Rodriguez MD - 01/03/2025 10:30 AM Mike Chase NP - 11/14/2024 12:20 PM Isaac Pugh MD - 10/01/2024 10:32 AM EST Note Date & Type Note Facility 01-27-2025 Note Patient Education Cardiovascular Hypertension, Adult High blood pressure (hypertension) is when the force of blood pumping through the arteries is too strong. The arteries are the blood vessels that carry blood from the heart throughout the body. Hypertension forces the heart to work harder to pump blood and may cause arteries to become narrow or stiff. Untreated or uncontrolled hypertension can lead to a heart attack, heart failure, a stroke, kidney disease, and other problems. A blood pressure reading consists of a higher number over a lower number. Ideally, your blood pressure should be below 120/80. The first ( top ) number is called the systolic pressure. It is a measure of the pressure in your arteries as your heart beats. The second ( bottom ) number is called the diastolic pressure. It is a measure of the pressure in your arteries as the heart relaxes. What are the causes? The exact cause of this condition is not known. There are some conditions that result in high blood pressure. What increases the risk? Certain factors may make you more likely to develop high blood pressure. Some of these risk factors are under your control, including: ??? Smoking. ??? Not getting enough exercise or physical activity. ??? Being overweight. ??? Having too much fat, sugar, calories, or salt (sodium) in your diet. ??? Drinking too much alcohol. Other risk factors include: ??? Having a personal history of heart disease, diabetes, high cholesterol, or kidney disease. ??? Stress. ??? Having a family history of high blood pressure and high cholesterol. ??? Having obstructive sleep apnea. ??? Age. The risk increases with age. What are the signs or symptoms? High blood pressure may not cause symptoms. Very high blood pressure (hypertensive crisis) may cause: ??? Headache. ??? Fast or irregular heartbeats (palpitations). ??? Shortness of breath. ??? Nosebleed. ??? Nausea and vomiting. ??? Vision changes. ??? Severe chest pain, dizziness, and seizures. How is this diagnosed? This condition is diagnosed by measuring your blood pressure while you are seated, with your arm resting on a flat surface, your legs uncrossed, and your feet flat on the floor. The cuff of the blood pressure monitor will be placed directly against the skin of your upper arm at the level of your heart. Blood pressure should be measured at least twice using the same arm. Certain conditions can cause a difference in blood pressure between your right and left arms. If you have a high blood pressure reading during one visit or you have normal blood pressure with other risk factors, you may be asked to: ??? Return on a different day to have your blood pressure checked again. ??? Monitor your blood pressure at home for 1 week or longer. If you are diagnosed with hypertension, you may have other blood or imaging tests to help your health care provider understand your overall risk for other conditions. How is this treated? This condition is treated by making healthy lifestyle changes, such as eating healthy foods, exercising more, and reducing your alcohol intake. You may be referred for counseling on a healthy diet and physical activity. Your health care provider may prescribe medicine if lifestyle changes are not enough to get your blood pressure under control and if: ??? Your systolic blood pressure is above 130. ??? Your diastolic blood pressure is above 80. Your personal target blood pressure may vary depending on your medical conditions, your age, and other factors. Follow these instructions at home: Eating and drinking ??? Eat a diet that is high in fiber and potassium, and low in sodium, added sugar, and fat. An example of this eating plan is called the DASH diet. DASH stands for Dietary Approaches to Stop Hypertension. To eat this way: ? Eat plenty of fresh fruits and vegetables. Try to fill one half of your plate at each meal with fruits and vegetables. ? Eat whole grains, such as whole-wheat pasta, brown rice, or whole-grain bread. Fill about one fourth of your plate with whole grains. ? Eat or drink low-fat dairy products, such as skim milk or low-fat yogurt. ? Avoid fatty cuts of meat, processed or cured meats, and poultry with skin. Fill about one fourth of your plate with lean proteins, such as fish, chicken without skin, beans, eggs, or tofu. ? Avoid pre-made and processed foods. These tend to be higher in sodium, added sugar, and fat. ??? Reduce your daily sodium intake. Many people with hypertension should eat less than 1,500 mg of sodium a day. ??? Do not drink alcohol if: ? Your health care provider tells you not to drink. ? You are , may be , or are planning to become . ??? If you drink alcohol: ? Limit how much you have to: ? 0?1 drink a day for women. ? 0?2 drinks a day for men. ? Know how much alcohol is in your drink. In the [place] one drink equals one 12 oz bottle (more content not included)... [facility] 01-04-2025 Note HNO ID: [id number] Author: YAIR CHANEY MD Service: ? Author Type: Physician Type: Progress Notes Filed: 01/04/2025 12:12 Note Text: [facility] Stepan Sharif Department of Cardiovascular Medicine SECTION OF REGIONAL CARDIOLOGY OUTPATIENT VISIT DATE January 04, 2025 OUTPATIENT VISIT TYPE ESTABLISHED HISTORY OF PRESENT ILLNESS: Dorie Root is a (an) 79 year old year old female who is here today for follow-up. She is getting forgetful. Since last visit denies chest pain, SOB, palpitations or lightheadedness. Presents with her Last OV 07/05/24 Dorie Root is a (an) 79 year old year old female who is here today for follow-up. She was placed on Amlodipine and her for follow up BP check. Denies interval symptoms changes Presents with sister. is in hospital with a stroke Dorie Root is a (an) 79 year old year old female who is here today for follow-up. Since last visit denies chest pain, SOB, palpitations or lightheadedness. She reports today that she has been taking Lisinopril-HCTZ 10-12.5 mg daily for years (not Lisinopril 10 mg daily) Dorie Root is a 77 year old female from [place], [place] here today self referral. Has h/o [...] Social History Tobacco Use Smoking status: Never Smokeless tobacco: Current ALLERGIES: Patient has no known allergies. CURRENT MEDICATIONS: Current Outpatient Medications Medication Sig memantine (NAMENDA) 10 mg tablet Take 1 tablet by mouth two times a day. amLODIPine (NORVASC) 5 mg tablet Take 1 tablet by mouth once daily. lisinopril-hydroCHLOROthiazide (ZESTORETIC) 10-12.5 mg per tablet Take 1 tablet by mouth once daily. escitalopram oxalate (LEXAPRO) 5 mg tablet Take 1 tablet by mouth daily at bedtime. BENEFIBER, GUAR GUM, ORAL Take by mouth. Coenzyme E90-Cvzbsai E 100-5 mg-unit cap 2 gels Orally LUTEIN-ZEAXANTHIN ORAL Take by mouth. cyanocobalamin, vitamin B-12, (VITAMIN B-12) 5,000 mcg subl Dissolve under the tongue. fsh/flx/prim/cur/bor/om3,6,9 5 (OMEGA 3-6-9 FATTY ACIDS ORAL) Take by mouth. Ascorbic Acid (VITAMIN C) 1,000 mg tablet Take 1,000 mg by mouth once daily. ALBUTEROL 90 MCG/ACTUATION AEROSOL INHALER as needed [...] Last 3 Encounter BP Readings: Date: BP: 01/03/2025 183/74 10/01/2024 151/53 07/05/2024 132/60 Last 3 Encounter Pulse Readings: Date: Pulse: 01/03/2025 56 10/01/2024 64 07/05/2024 62 Last 3 Encounter Wt Readings: Date: Wt: 01/03/2025 51.6 kg (113 lb 12.1 oz) 07/05/2024 49.5 kg (109 lb 2 oz) 06/21/2024 49.9 kg (110 lb 0.2 oz) BP 156/66 Pulse 61 Ht 5' 2 (1.58m) Wt 113 lb 1.5 oz (51.3kg) SpO2 98% BMI 20.68 kg/(m2). GENERAL: no acute distress HEENT:Atraumatic, normocephalic. NECK: No JVD, no carotid bruit, normal carotid upstrokes, no thyromegaly CARDIAC: Regular rhythm. Normal S1 and S2. No murmur, rub or gallop. LUNGS: clear to auscultation, no rhonchi, no rales, no wheezes ABDOMEN: Bowel sounds normal. EXTREMITIES: No peripheral edema NEURO: Oriented to person, place, and time. Appropriate and cooperative, no gross deficit. LABS: Cholesterol, Total (mg/dL) Date Value 07/11/2023 209 HDL Cholesterol (mg/dL) Date Value 07/11/2023 76 LDL Cholesterol, Calculated (mg/dL) Date Value 07/11/2023 115 Triglyceride (mg/dL) Date Value 07/11/2023 92 No results found for: NMRTOT No results found for: AST , ALT No results found for: CK No results found for: INR TSH (mIU/L) Date Value 06/02/2024 2.540 No results found for: BNP No results found for: (more content not included)... [facility] 01-04-2025 History of Present illness Narrative Images from the original note were not included. [facility] Department of Cardiovascular Medicine SECTION OF REGIONAL CARDIOLOGY OUTPATIENT VISIT DATE January 04, 2025 OUTPATIENT VISIT TYPE ESTABLISHED HISTORY OF PRESENT ILLNESS: Dorie Root is a (an) 79 year old year old female who is here today for follow-up. She is getting forgetful. Since last visit denies chest pain, SOB, palpitations or lightheadedness. Presents with her Last OV 07/05/24 Dorie Root is a (an) 79 year old year old female who is here today for follow-up. She was placed on Amlodipine and her for follow up BP check. Denies interval symptoms changes Presents with sister. is in hospital with a stroke Dorie Root is a (an) 79 year old year old female who is here today for follow-up. Since last visit denies chest pain, SOB, palpitations or lightheadedness. She reports today that she has been taking Lisinopril-HCTZ 10-12.5 mg daily for years (not Lisinopril 10 mg daily) Dorie Root is a 77 year old female from [place], [place] here today self referral. Has h/o [...] Social History Tobacco Use Smoking status: Never Smokeless tobacco: Current ALLERGIES: Patient has no known allergies. CURRENT MEDICATIONS: Current Outpatient Medications Medication Sig memantine (NAMENDA) 10 mg tablet Take 1 tablet by mouth two times a day. amLODIPine (NORVASC) 5 mg tablet Take 1 tablet by mouth once daily. lisinopril-hydroCHLOROthiazide (ZESTORETIC) 10-12.5 mg per tablet Take 1 tablet by mouth once daily. escitalopram oxalate (LEXAPRO) 5 mg tablet Take 1 tablet by mouth daily at bedtime. BENEFIBER, GUAR GUM, ORAL Take by mouth. Coenzyme E22-Wwjhlic E 100-5 mg-unit cap 2 gels Orally LUTEIN-ZEAXANTHIN ORAL Take by mouth. cyanocobalamin, vitamin B-12, (VITAMIN B-12) 5,000 mcg subl Dissolve under the tongue. fsh/flx/prim/cur/bor/om3,6,9 5 (OMEGA 3-6-9 FATTY ACIDS ORAL) Take by mouth. Ascorbic Acid (VITAMIN C) 1,000 mg tablet Take 1,000 mg by mouth once daily. ALBUTEROL 90 MCG/ACTUATION AEROSOL INHALER as needed [...] Last 3 Encounter BP Readings: Date: BP: 01/03/2025 183/74 10/01/2024 151/53 07/05/2024 132/60 Last 3 Encounter Pulse Readings: Date: Pulse: 01/03/2025 56 10/01/2024 64 07/05/2024 62 Last 3 Encounter Wt Readings: Date: Wt: 01/03/2025 51.6 kg (113 lb 12.1 oz) 07/05/2024 49.5 kg (109 lb 2 oz) 06/21/2024 49.9 kg (110 lb 0.2 oz) BP 156/66 Pulse 61 Ht 5' 2 (1.58m) Wt 113 lb 1.5 oz (51.3kg) SpO2 98% BMI 20.68 kg/(m^2). GENERAL: no acute distress HEENT:Atraumatic, normocephalic. NECK: No JVD, no carotid bruit, normal carotid upstrokes, no thyromegaly CARDIAC: Regular rhythm. Normal S1 and S2. No murmur, rub or gallop. LUNGS: clear to auscultation, no rhonchi, no rales, no wheezes ABDOMEN: Bowel sounds normal. EXTREMITIES: No peripheral edema NEURO: Oriented to person, place, and time. Appropriate and cooperative, no gross deficit. LABS: Cholesterol, Total (mg/dL) Date Value 07/11/2023 209 HDL Cholesterol (mg/dL) Date Value 07/11/2023 76 LDL Cholesterol, Calculated (mg/dL) Date Value 07/11/2023 115 Triglyceride (mg/dL) Date Value 07/11/2023 92 No results found for: NMRTOT No results found for: AST , ALT No results found for: CK No results found for: INR TSH (mIU/L) Date Value 06/02/2024 2.540 No results found for: BNP No results found for: PBNP No results found for: HB , HCT , WBC , PLT No results found for: GLUC , K , NA , CHLOR , CO2 , CREAT , BUN , ANION , CA CARDIOVASCULAR MEDICINE TESTING: Carotid US 01/02/23 IMPRESSION [...] ISAAC MATSON Interpreting physician: OLIVIA Malhotra DO 06/21/24 Echo 06/11/23 CONCLUSIONS: - Technically difficult exam [...] a prior CC echocardiographic exam for comparison. Stress nuclear test 06/11/23 CONCLUSIONS: 1. SPECT Perfusion Study: Normal. 2. There is no scintigraphic evidence for inducible ischemia. 3. No evidence of scarred myocardium. 4. Left ventricle is normal in size. The left ventricle systolic function is hyperdynamic. 5. This is a low risk scan. Gated Stress FBP Gated Rest FBP LVEF % 78 ASSESSMENT/PLAN: 1. 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 - May increase Amlodipine to bid to improve BP control. Target BP <140/90 mmHg. - Negative pharmacological nuclear test for ischemia 06/11/23. Consider further ICA if symptoms persist or worsen to let me know. - She did not have her lipids completed. - Update echo with follow up - Refer to ENT for Vertigo and vestibular testing This note was partially generated using [employer] voice recognition system, and there may be some incorrect words, spellings, and punctuation that were not noted in checking the note before saving. Some elements copied from my previous notes which have been updated as appropriate and reflect current medical decision making from today Yair Chaney M.D., F.A.C.C CONTACT INFORMATION: Leonel Chaney M.D., Shahab.CZuleikaC. Monkey Trainer Clinical nozzle worker [facility] Staff Explosive Operator Bomb Ezequiel Costa Rust Mail Code [id number] [place] [address] CC: Srinivasan Lezama [facility] [place] [address] documented in this encounter [facility] 01-03-2025 Instructions Cassius Jiménez MD - 01/03/2025 10:52 AM EDT PLEASURE SEEING YOU TODAY 1) THANKS FOR INCREASING NAMENDA (MEMANTINE) TO 10MG ONE TABLET TWICE DAILY 2) PLEASE KINDLY CHECK ON THE DOSE OF LEXAPRO (ESCITALOPRAM) AND PLEASE SEND US A MY CHART MESSAGE SO I CAN ADVISE ON THE NEXT DOSE INCREASE FOR THE LEXAPRO (ESCITALOPRAM) 3) THANKS FOR DOING SLEEP STUDY 4) SWALLOW STUDY WITH SPEECH THERAPY Cassius Jiménez MD [facility] documented in this encounter [facility] 01-03-2025 History of Present illness Narrative [facility] Follow Up Consult Dorie Root is a 79 year old year old female who comes for Comprehensive Geriatric Assessment. HPI: Last seen June 2024 Ms. Root has had serial memory decline - She is now repeating herself more when having conversations. She has had serial functional decline - She now has trouble remembering how to cook certain things. She will forget what settings to use on the washing machine. Dizzy spells - Ms. Root reports dizziness is getting worse. Spells last for a few minutes and happen multiple times a day. She denies feelings like the room is spinning. Frustration and getting upset Difficulty swallowing - Choking while eating, which started in July and has been getting worse. Son (Chung) is a salon shampoo assistant for [employer], lives in [place], and has 2 daughters. is trying to get son to help more with patient. Son scheduled to visit in June. reports son has a calming effect on the patient. Any Family History of dementia? Yes, mother Are you or your spouse a ? NO, Son (Chung) was [employer] Are there any firearms in the home? Ask next visit Social History: Primary language: Bangladeshi Marital Status: Living situation: Home w/ Spouse Socially engaged? 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 does not have a good relationship with 2 of his step children who are not in the patient's life. Concerned about leaving house due to incontinence B-ADLs: (I=independent,A=assistance,D=dep endent) ?Bathing: I, Dressing: I, Toileting: I, Transferring:I, Continence: I, Feeding: I, (Canas Index): 6/6 I-ADLs: Ability to use phone: I, Shopping: A, Cooking: A, Housekeeping: I, Laundry: I, Transportation:I, Medications: I, Handle Finances: D. 3 months ago patient stopped handling finances and now handles them ([place] scale): 78 PMHx: Home Meds: Current Outpatient Medications Medication Sig Dispense Refill memantine (NAMENDA) 5 mg tablet Take 1 tablet by mouth two times a day. 60 tablet 2 amLODIPine (NORVASC) 5 mg tablet Take 1 tablet by mouth once daily. 90 tablet 3 lisinopril-hydroCHLOROthiazide (ZESTORETIC) 10-12.5 mg per tablet Take 1 tablet by mouth once daily. topiramate (TOPAMAX) 25 mg tablet Take 1 tablet by mouth daily at bedtime. 30 tablet 2 escitalopram oxalate (LEXAPRO) 5 mg tablet Take 1 tablet by mouth daily at bedtime. 60 tablet 2 BENEFIBER, GUAR GUM, ORAL Take by mouth. Coenzyme J68-Jrfisff E 100-5 mg-unit cap 2 gels Orally LUTEIN-ZEAXANTHIN ORAL Take by mouth. cyanocobalamin, vitamin B-12, (VITAMIN B-12) 5,000 mcg subl Dissolve under the tongue. fsh/flx/prim/cur/bor/om3,6,9 5 (OMEGA 3-6-9 FATTY ACIDS ORAL) Take by mouth. Ascorbic Acid (VITAMIN C) 1,000 mg tablet Take 1,000 mg by mouth once daily. ALBUTEROL 90 MCG/ACTUATION AEROSOL INHALER as needed 0 0 Medication Review: - ANY HIGH RISK MEDICATIONS (STOPP CRITERIA): YES, Hydroxyzine ALLERGIES No Known Allergies Review of Systems Difficulty chew/swallow: No Pain: No Tremor: No Incontinence - During the last 3 months did you leak urine? NO - Type?: None Constipation/Change in bowel habits: YES, diarrhea and constipation, urge incontinence Vision Positive for vision impairment and wears glasses Follows with food and beverage intern:YES Hearing - Hearing aid : Hearing impairment, wears bilateral hearing aids, did not wear them to appointment. Concerned they might fall. Falls: .: Falls in the last 12 months: Positive: If + falls: Fell stepping off a curb, had to go to ED 06/18/2024 11:08 PM - Radiology, [place] In Impression IMPRESSION: * No evidence of an acute intracranial process or intracranial mass. * Moderate to severe generalized volume loss, most pronounced in the temporal and parietal lobes. * Hippocampal volumes at the 5th percentile when compared to age matched normal controls by quantitative analysis. * Mild white matter disease which is nonspecific but likely reflective of chronic microvascular ischemia. 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 * Isolated parenchymal microhemorrhage by MRI which is non-specific. Neuropsych Testing Results: Altogether, findings suggest dysfunction of temporal lobe cognitive functions. 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 Although etiology remains uncertain, her cognitive profile and reported history of decline over the past two years are worrisome for a neurodegenerative process. Additional factors that may influence her cognitive and functional abilities include variations in mood, hearing loss, and side effects of her medication regimen (e.g., Topamax), although these factors alone are unlikely to account for the obtained profile Assessment and Plan: 1) Memory Impairment: MOCA/MMSE scored 19/30 with deficits in multiple areas She has had serial memory decline She has had serial functional decline Serologies for potentially reversible etiologies for memory impairment: Vitamin B12, TFTs, Vitamin D all WNL MRI brain with volumetric scans show Hippocampal volumes at 5th percentile as well as remote micro-infarct in 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 Root wakes up 2-3 times at night. She feels tired when she wakes up. She occasionally snores. She has stopped breathing while sleeping. She is open to doing a sleep study. 3) Vitamin B12 Deficiency: Levels > 2,000 o 06/02/24 4) Seizure Disorder vs. Migraines?: No longer taking Topamax. 5) Vertigo/Dizziness: Dizziness Persists Denies true vertigo per se Has seen Neurology who advised resumption of Topamax which family have declined because of drug interactions She reports good appetite Will check Orthostatics today Scheduled to see Cardiology tomorrow 6) Hearing loss: Wears hearing aid -Just started wearing a few weeks ago Encouraged wearing hearing aids regularly as will help memory as well 7) Anxiety: Currently persists ? On Lexapro 5mg qHS Not taking Hydroxyzine Patient will confirm what dose of Lexapro she is taking. If on 5 mg, will increase Lexapro dose to 10 mg qHS. If on 10 mg, will increase dose to 20 mg qHS. 8) ?Dysphagia Swallow Study with Speech Therapy Advanced Care Planning: - HCPOA: Plan on asking next visit By signing my name below, Eladia Barrera, attest that this documentation has been prepared under the direction and in the presence of Dr. Cassius Jiménez. Electronically signed, Nicola Fernandez January 03, 2025 11:15 AM Provider Attestation: Cassius Barrera MD personally performed the services described in this documentation. All medical record entries made by the scribe were at my direction and in my presence. I have reviewed the chart and discharge instructions (if applicable) and agree that the record reflects my personal performance and is accurate and complete. Electronically Signed: Cassius Jiménez MD, January 04, 2025 Cassius Jiménez MD [facility] documented in this encounter [facility] 01-03-2025 Note HNO ID: [id number] Author: CASSIUS JIMÉNEZ MD Service: ? Author Type: Physician Type: Progress Notes Filed: 01/04/2025 15:42 Note Text: [facility] Geriatric Medicine Follow Up Consult Dorie Root is a 79 year old year old female who comes for Comprehensive Geriatric Assessment. HPI: Last seen June 2024 Ms. Root has had serial memory decline - She is now repeating herself more when having conversations. She has had serial functional decline - She now has trouble remembering how to cook certain things. She will forget what settings to use on the washing machine. Dizzy spells - Ms. Root reports dizziness is getting worse. Spells last for a few minutes and happen multiple times a day. She denies feelings like the room is spinning. Frustration and getting upset Difficulty swallowing - Choking while eating, which started in July and has been getting worse. Son (Chung) is a salon shampoo assistant for [employer], lives in [place], and has 2 daughters. is trying to get son to help more with patient. Son scheduled to visit in June. reports son has a calming effect on the patient. Any Family History of dementia? Yes, mother Are you or your spouse a ? NO, Son (Chung) was [employer] Are there any firearms in the home? Ask next visit Social History: Primary language: Bangladeshi Marital Status: Living situation: Home w/ Spouse Socially engaged? 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 does not have a good relationship with 2 of his step children who are not in the patient's life. Concerned about leaving house due to incontinence B-ADLs: (I=independent,A=assistance,D=dep endent) ?Bathing: I, Dressing: I, Toileting: I, Transferring:I, Continence: I, Feeding: I, (Canas Index): 02/04 I-ADLs: Ability to use phone: I, Shopping: A, Cooking: A, Housekeeping: I, Laundry: I, Transportation:I, Medications: I, Handle Finances: D. 3 months ago patient stopped handling finances and now handles them (Mendez scale): 03/08 PMHx: Home Meds: Current Outpatient Medications Medication Sig Dispense Refill memantine (NAMENDA) 5 mg tablet Take 1 tablet by mouth two times a day. 60 tablet 2 amLODIPine (NORVASC) 5 mg tablet Take 1 tablet by mouth once daily. 90 tablet 3 lisinopril-hydroCHLOROthiazide (ZESTORETIC) 10-12.5 mg per tablet Take 1 tablet by mouth once daily. topiramate (TOPAMAX) 25 mg tablet Take 1 tablet by mouth daily at bedtime. 30 tablet 2 escitalopram oxalate (LEXAPRO) 5 mg tablet Take 1 tablet by mouth daily at bedtime. 60 tablet 2 BENEFIBER, GUAR GUM, ORAL Take by mouth. Coenzyme E62-Mbqyyjb E 100-5 mg-unit cap 2 gels Orally LUTEIN-ZEAXANTHIN ORAL Take by mouth. cyanocobalamin, vitamin B-12, (VITAMIN B-12) 5,000 mcg subl Dissolve under the tongue. fsh/flx/prim/cur/bor/om3,6,9 5 (OMEGA 3-6-9 FATTY ACIDS ORAL) Take by mouth. Ascorbic Acid (VITAMIN C) 1,000 mg tablet Take 1,000 mg by mouth once daily. ALBUTEROL 90 MCG/ACTUATION AEROSOL INHALER as needed 0 0 Medication Review: - ANY HIGH RISK MEDICATIONS (STOPP CRITERIA): YES, Hydroxyzine ALLERGIES No Known Allergies Review of Systems Difficulty chew/swallow: No Pain: No Tremor: No Incontinence - During the last 3 months did you leak urine? NO - Type?: None Constipation/Change in bowel habits: YES, diarrhea and constipation, urge incontinence Vision Positive for vision impairment and wears glasses Follows with food and beverage intern:YES Hearing - Hearing aid : Hearing impairment, wears bilateral hearing aids, did not wear them to appointment. Concerned they might fall. Falls: .: Falls in the last 12 months: Positive: If + falls: Fell stepping off a curb, had to go to ED 06/18/2024 11:08 PM - Radiology, [place] In Impression IMPRESSION: * No evidence of an acute intracranial process or intracranial mass. * Moderate to severe generalized volume loss, most pronounced in the temporal and parietal lobes. * Hippocampal volumes at the 5th percentile when compared to age matched normal controls by quantitative analysis. * Mild white matter disease which is nonspecific but likely reflective of chronic microvascular ischemia. 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 * Isolated parenchymal microhemorrhage by MRI which is non-specific. Neuropsych Testing Results: Altogether, findings suggest dysfunction of temporal lobe cognitive functions. 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 Although etiology remai (more content not included)... [facility] 11-14-2024 History of Present illness Narrative Images from the original note were not included. [address] , [address] [facility], [address] P: [phone] F: [phone] HPI Historian of HPI: patient Dorie Root is a 79 y.o. female who presents today to the Urgent Care with the following complaints and denials which have been present for 2 day(s) C/O Denies Symptom Comments [] [x] Runny Nose [x] [] Difficulty Swallowing [x] [] Sore Throat [x] [] Cough [] [x] Ear Pain [] [x] Fever [x] [] Chills [] [x] Nasal Congestion [] [x] Myalgia [] [x] Sinus Pain [] [x] Sinus Pressure Additional Comments: Pt tested positive for strep last week. ROS A complete system ROS was performed and negative aside from the pertinent positives noted in the HPI and PE. IH Testing: PHYSICAL EXAM Examination General examination: General Examination: alert, oriented, normal affect, well-appearing, in no acute distress, well developed, well nourished. Head: normocephalic, atraumatic Eyes: sclera anicteric Ears: TM normal landmarks and mobility Nose: Nares patent without discharge Oral Cavity: mucosa moist Throat: Erythema and PND noted Neck/Thyroid: neck supple, FROM, no cervical lymphadenopathy Lymph nodes: cervical nodes normal, not tender, and easily moveable. Skin: no rashes Heart: no murmurs, regular rate and rhythm, S1, S2 normal Lungs: clear to auscultation bilaterally Musculoskeletal: normal Extremities: no edema, no cyanosis. Neurologic: nonfocal Psych: alert, oriented, cooperative with exam TREATMENT PLAN 1. Strep throat exposure (Primary) This pt presents today after exposure to strep from her . Discussed the diagnosis of strep with the pt today. She will be empirically treated today. She is advised to continue otc tylenol as directed for pain and discomfort, increase fluids, rest and follow up if continued or worsening symptoms. - amoxicillin (Amoxil) 500 MG capsule; Take 1 capsule (500 mg) by mouth in the morning and 1 capsule (500 mg) before bedtime. Do all this for 10 days. Dispense: 20 capsule; Refill: 0 2. Pharyngitis, unspecified etiology Negative testing results today are discussed. She declines throat culture today. - STREP DNA PROBE 3. Nasal congestion Discussed use of capmist dm and its most common side effects. - kmieqeolqincgml-GN-PK 60-15-400 MG tablet; Take 1 tablet by mouth in the morning and 1 tablet at noon and 1 tablet in the evening and 1 tablet before bedtime. Do all this for 10 days. Dispense: 40 tablet; Refill: 0 documented in this encounter [facility] 10-01-2024 Note HNO ID: [id number] Author: ISAAC MATSON MD Service: ? Author Type: Physician Type: Progress Notes Filed: 10/01/2024 10:40 Note Text: 09/27/2024 PROMIS Global Health Physical Health Summary Physical health: Very good Everyday physical activity, ability: Mostly Fatigue: Mild Pain level: 1 General health: Very good Social activities/roles, ability: Good Physical Health T-Score 50.8 (Very Good) Physical Health Percentile 53 PROMIS Global Health Mental Health Summary Quality of life: Very good Mental health (mood,thinking): Good Social satisfaction: Very good Emotional problems (anxious,depressed): Rarely Mental Health T-Score 50.8 (Very Good) Mental Health Percentile 53 PHQ-9 Score: 1(Minimal Depression) PHQ-9 Self-Harm: Not at all NEURO-QOL Cognitive Function T-Score 41(Mild Dysfunction) PROMIS Physical Function T-Score 35(Moderate Dysfunction) PROMIS Physical Function Percentile 7 Percentiles provide an indication of how a patient's score ranks in relation to the [place] general population. > 31st percentile is within normal limits or better *< 31st percentile is at least ? SD worse than population, which may be clinically relevant < 16th percentile is at least 1 SD worse than population and warrants attention [facility] 10-01-2024 History of Present illness Narrative 09/27/2024 PROMIS Global Health Physical Health Summary Physical health: Very good Everyday physical activity, ability: Mostly Fatigue: Mild Pain level: 1 General health: Very good Social activities/roles, ability: Good Physical Health T-Score 50.8 (Very Good) Physical Health Percentile 53 PROMIS Global Health Mental Health Summary Quality of life: Very good Mental health (mood,thinking): Good Social satisfaction: Very good Emotional problems (anxious,depressed): Rarely Mental Health T-Score 50.8 (Very Good) Mental Health Percentile 53 PHQ-9 Score: 1(Minimal Depression) PHQ-9 Self-Harm: Not at all NEURO-QOL Cognitive Function T-Score 41(Mild Dysfunction) PROMIS Physical Function T-Score 35(Moderate Dysfunction) PROMIS Physical Function Percentile 7 Percentiles provide an indication of how a patient's score ranks in relation to the [place] general population. > 31st percentile is within normal limits or better *< 31st percentile is at least SD worse than population, which may be clinically relevant < 16th percentile is at least 1 SD worse than population and warrants attention NEUROLOGY PROGRESS NOTE Dorie Root is a 79 year old female. Who has a history of headaches comes in for follow up. Interval History Dorie Root is a 79 year old female, with a history of [...] has had therapy but to no avail. Patient has not started the Topamax. Apparently the headaches have resolved. Will continue to observe symptomatologies. She follows up with geriatrics for memory issues. There is no problem list on file for this patient. No past surgical history on file. Current Outpatient Medications on File Prior to Visit Medication Sig memantine (NAMENDA) 5 mg tablet Take 1 tablet by mouth two times a day. amLODIPine (NORVASC) 5 mg tablet Take 1 tablet by mouth once daily. lisinopril-hydroCHLOROthiazide (ZESTORETIC) 10-12.5 mg per tablet Take 1 tablet by mouth once daily. escitalopram oxalate (LEXAPRO) 5 mg tablet Take 1 tablet by mouth daily at bedtime. BENEFIBER, GUAR GUM, ORAL Take by mouth. Coenzyme E27-Allmrds E 100-5 mg-unit cap 2 gels Orally LUTEIN-ZEAXANTHIN ORAL Take by mouth. cyanocobalamin, vitamin B-12, (VITAMIN B-12) 5,000 mcg subl Dissolve under the tongue. fsh/flx/prim/cur/bor/om3,6,9 5 (OMEGA 3-6-9 FATTY ACIDS ORAL) Take by mouth. Ascorbic Acid (VITAMIN C) 1,000 mg tablet Take 1,000 mg by mouth once daily. ALBUTEROL 90 MCG/ACTUATION AEROSOL INHALER as needed topiramate (TOPAMAX) 25 mg tablet Take 1 tablet by mouth daily at bedtime. No current facility-administered medications on file prior to visit. Social History Tobacco Use Smoking status: Never Smokeless tobacco: Current family history is not on file. GENERAL:No [...] HPI. All systems reviewed and are negative 10/01/24 1024 BP: 151/53 BP Site: Left Arm BP Position: Sitting BP Cuff Size: Regular Adult Pulse: 64 PHYSICAL EXAMINATION: General appearance: well appearing, alert, in no acute distress Neck: Supple Neurological exam: MENTAL STATUS: Alert, oriented to person, place and time and Follows commands CRANIAL NERVES: PERRLA, EOM's intact, Face symmetric, No dysarthria, and Tongue protrudes midline MOTOR: Normal tone MOTOR STRENGTH: Upper and lower extremity 5/5 bilaterally GAIT: Normal-based IMPRESSION: 1. Headache disorder PLAN: Any problems or concerns to call me or primary care physician immediately or go straight to the emergency department Return in about 6 months (around 03/31/2025). ASSESSMENT/PLAN: 1. Headache disorder - ICD9: 784.0, ICD10: R51.9 Isaac Matson MD I spent a total of 20 minutes on the date of the service which included preparing to see the patient, [id number] patient care, completing clinical documentation, obtaining and/or reviewing separately obtained history, performing a medically appropriate examination, and counseling and educating the patient/family/caregiver. SIGNATURE: Isaac Matson MD PATIENT NAME: Dorie Root DATE: October 01, 2024 TIME: 10:38 AM 09/27/2024 PROMIS Global Health Physical Health Summary Physical health: Very good Everyday physical activity, ability: Mostly Fatigue: Mild Pain level: 1 General health: Very good Social activities/roles, ability: Good Physical Health T-Score 50.8 (Very Good) Physical Health Percentile 53 PROMIS Global Health Mental Health Summary Quality of life: Very good Mental health (mood,thinking): Good Social satisfaction: Very good Emotional problems (anxious,depressed): Rarely Mental Health T-Score 50.8 (Very Good) Mental Health Percentile 53 PHQ-9 Score: 1(Minimal Depression) PHQ-9 Self-Harm: Not at all NEURO-QOL Cognitive Function T-Score 41(Mild Dysfunction) PROMIS Physical Function T-Score 35(Moderate Dysfunction) PROMIS Physical Function Percentile 7 Percentiles provide an indication of how a patient's score ranks in relation to the [place] general population. > 31st percentile is within normal limits or better *< 31st percentile is at least SD worse than population, which may be clinically relevant < 16th percentile is at least 1 SD worse than population and warrants attention documented in this encounter [facility] 10-01-2024 Note HNO ID: [id number] Author: ISAAC MATSON MD Service: ? Author Type: Physician Type: Progress Notes Filed: 10/01/2024 10:40 Note Text: NEUROLOGY PROGRESS NOTE Dorie Root is a 79 year old female. Who has a history of headaches comes in for follow up. Interval History Dorie Root is a 79 year old female, with a history of [...] has had therapy but to no avail. Patient has not started the Topamax. Apparently the headaches have resolved. Will continue to observe symptomatologies. She follows up with geriatrics for memory issues. There is no problem list on file for this patient. No past surgical history on file. Current Outpatient Medications on File Prior to Visit Medication Sig memantine (NAMENDA) 5 mg tablet Take 1 tablet by mouth two times a day. amLODIPine (NORVASC) 5 mg tablet Take 1 tablet by mouth once daily. lisinopril-hydroCHLOROthiazide (ZESTORETIC) 10-12.5 mg per tablet Take 1 tablet by mouth once daily. escitalopram oxalate (LEXAPRO) 5 mg tablet Take 1 tablet by mouth daily at bedtime. BENEFIBER, GUAR GUM, ORAL Take by mouth. Coenzyme N31-Jgccclc E 100-5 mg-unit cap 2 gels Orally LUTEIN-ZEAXANTHIN ORAL Take by mouth. cyanocobalamin, vitamin B-12, (VITAMIN B-12) 5,000 mcg subl Dissolve under the tongue. fsh/flx/prim/cur/bor/om3,6,9 5 (OMEGA 3-6-9 FATTY ACIDS ORAL) Take by mouth. Ascorbic Acid (VITAMIN C) 1,000 mg tablet Take 1,000 mg by mouth once daily. ALBUTEROL 90 MCG/ACTUATION AEROSOL INHALER as needed topiramate (TOPAMAX) 25 mg tablet Take 1 tablet by mouth daily at bedtime. No current facility-administered medications on file prior to visit. Social History Tobacco Use Smoking status: Never Smokeless tobacco: Current family history is not on file. GENERAL:No [...] HPI. All systems reviewed and are negative 10/01/24 1024 BP: 151/53 BP Site: Left Arm BP Position: Sitting BP Cuff Size: Regular Adult Pulse: 64 PHYSICAL EXAMINATION: General appearance: well appearing, alert, in no acute distress Neck: Supple Neurological exam: MENTAL STATUS: Alert, oriented to person, place and time and Follows commands CRANIAL NERVES: PERRLA, EOM's intact, Face symmetric, No dysarthria, and Tongue protrudes midline MOTOR: Normal tone MOTOR STRENGTH: Upper and lower extremity 5/5 bilaterally GAIT: Normal-based IMPRESSION: 1. Headache disorder PLAN: Any problems or concerns to call me or primary care physician immediately or go straight to the emergency department Return in about 6 months (around 03/31/2025). ASSESSMENT/PLAN: 1. Headache disorder - ICD9: 784.0, ICD10: R51.9 Isaac Matson MD I spent a total of 20 minutes on the date of the service which included preparing to see the patient, [id number] patient care, completing clinical documentation, obtaining and/or reviewing separately obtained history, performing a medically appropriate examination, and counseling and educating the patient/family/caregiver. SIGNATURE: Isaac Matson MD PATIENT NAME: Dorie Root DATE: October 01, 2024 TIME: 10:38 AM 09/27/2024 PROMIS Global Health Physical Health Summary Physical health: Very good Everyday physical activity, ability: Mostly Fatigue: Mild Pain level: 1 General health: Very good Social activities/roles, ability: Good Physical Health T-Score 50.8 (Very Good) Physical Health Percentile 53 PROMIS Global Health Mental Health Summary Quality of life: Very good Mental health (mood,thinking): Good Social satisfaction: Very good Emotional problems (anxious,depressed): Rarely Mental Health T-Score 50.8 (Very Good) Mental Health Percentile 53 PHQ-9 Score: 1(Minimal Depression) PHQ-9 Self-Harm: Not at all NEURO-QOL Cognitive Function T-Score 41(Mild Dysfunction) PROMIS Physical Function T-Score 35(Moderate Dysfunction) PROMIS Physical Function Percentile 7 Percentiles provide an indication of how a patient's score ranks in relation to the [place] general population. > 31st percentile is within normal limits or better *< 31st percentile is at least ? SD worse than population, which may be (more content not included)... [facility] 09-27-2024 Telephone encounter Note 05/24/2024 01/03/2025 Patient phones requesting refills as follows: Requested Prescriptions Pending Prescriptions Disp Refills memantine (NAMENDA) 5 mg tablet 60 tablet 2 Sig: Take 1 tablet by mouth two times a day. Please review and advise. [facility] 09-27-2024 Miscellaneous Notes 05/24/2024 01/03/2025 Patient phones requesting refills as follows: Requested Prescriptions Pending Prescriptions Disp Refills memantine (NAMENDA) 5 mg tablet 60 tablet 2 Sig: Take 1 tablet by mouth two times a day. Please review and advise. documented in this encounter [facility] 08-12-2024 Hospital Discharge instructions Follow Up Care 08/12/2024 10:51:28 With:Toribio DOS SANTOS, Zack Reich, PUL, ISSAC Address: [address] [place] [address] Sleep Lab [place], [place] [id number]- When:3 months [facility] 07-22-2024 Note Patient Education Cardiovascular Peripheral Vascular Disease Peripheral vascular disease (PVD) is a disease of the blood vessels that carry blood from the heart to the rest of the body. PVD is also called peripheral artery disease (PAD) or poor circulation. PVD affects most of the body. But it affects the legs and feet the most. PVD can lead to acute limb ischemia. This happens when there is a sudden stop of blood flow to an arm or leg. This is a medical emergency. What are the causes? The most common cause of PVD is a buildup of a fatty substance (plaque) inside your arteries. This decreases blood flow. Plaque can break off and block blood in a smaller artery. This can lead to acute limb ischemia. Other common causes of PVD include: ??? Blood clots inside the blood vessels. ??? Injuries to blood vessels. ??? Irritation and swelling of blood vessels. ??? Sudden tightening of the blood vessel (spasms). What increases the risk? A family history of PVD. ??? Medical conditions, including: ? High cholesterol. ? Diabetes. ? High blood pressure. ? Heart disease. ? Past problems with blood clots. ? Past injury, such as jones or a broken bone. ??? Other conditions, such as: ? Buerger's disease. This is caused by swollen or irritated blood vessels in your hands and feet. ? Arthritis. ? defects that affect the arteries in your legs. ? Kidney disease. ??? Using tobacco or nicotine products. ??? Not getting enough exercise. ??? Being very overweight (obese). ??? Being 50 years old or older. What are the signs or symptoms? Cramps in your butt, legs, and feet. ??? Pain and weakness in your legs when you are active that goes away when you rest. ??? Leg pain when at rest. ??? Leg numbness, tingling, or weakness. ??? Coldness in a leg or foot, especially when compared with the other leg or foot. ??? Skin or hair changes. These can include: ? Hair loss. ? Shiny skin. ? Pale or bluish skin. ? Thick toenails. ??? Being unable to get or keep an erection. ??? Tiredness (fatigue). ??? Weak pulse or no pulse in the feet. ??? Wounds and sores on the toes, feet, or legs. These take longer to heal. How is this treated? Underlying causes are treated first. Other conditions, like diabetes, high cholesterol, and blood pressure, are also treated. Treatment may include: ??? Lifestyle changes, such as: ? Quitting smoking. ? Getting regular exercise. ? Having a diet low in fat and cholesterol. ? Not drinking alcohol. ??? Taking medicines, such as: ? Blood thinners. ? Medicines to improve blood flow. ? Medicines to improve your blood cholesterol. ??? Procedures to: ? Open the arteries and restore blood flow. ? Insert a small mesh tube (stent) to keep a blocked vessel open. ? Create a new path for blood to flow to the body (peripheral bypass). ? Remove tissue from a wound. ? Remove an affected leg or arm. Follow these instructions at home: Medicines ??? Take jzky-hei-nymllxl and prescription medicines only as told by your doctor. ??? If you are taking blood thinners: ? Talk with your doctor before you take any medicines that have aspirin, or NSAIDs, such as ibuprofen. ? Take medicines exactly as told. Take them at the same time each day. ? Avoid doing things that could hurt or bruise you. Take action to prevent falls. ? Wear an alert bracelet or carry a card that shows you are taking blood thinners. Lifestyle ??? Get regular exercise. Ask your doctor about how to stay active. ??? Talk with your doctor about keeping a healthy weight. If needed, ask about losing weight. ??? Eat a diet that is low in fat and cholesterol. If you need help, talk with your doctor. ??? Do not drink alcohol. ??? Do not smoke or use any products that contain nicotine or tobacco. If you need help quitting, ask your doctor. General instructions ??? Take good care of your feet. To do this: ? Wear shoes that fit well and feel good. ? Check your feet often for any cuts or sores. ??? Get a flu shot (influenza vaccine) each year. ??? Keep all follow-up visits. Where to find more information ??? Society for Vascular Surgery: vascular.org ??? [place] [employer]: heart.org ??? National Heart, Lung, and Blood [employer]: nhlbi.nih.gov Contact a doctor if: ??? You have cramps in your legs when you walk. ??? You have leg pain when you rest. ??? Your leg or foot feels cold. ??? Your skin changes. ??? You cannot get or keep an erection. ??? You have cuts or sores on your legs or feet that do not heal. Get help right away if: ??? You have sudden changes in the color and feeling of your arms or legs, such as: ? Your arm or leg turns cold, numb, and blue. ? Your arm or leg becomes red, warm, swollen, painful, or numb. ??? You have any signs of a stroke. BE F (more content not included)... [facility] 07-05-2024 History of Present illness Narrative Images from the original note were not included. [facility] Stepan Sharif Department of Cardiovascular Medicine SECTION OF REGIONAL CARDIOLOGY OUTPATIENT VISIT DATE July 05, 2024 OUTPATIENT VISIT TYPE ESTABLISHED HISTORY OF PRESENT ILLNESS: Dorie Root is a (an) 79 year old year old female who is here today for follow-up. She was placed on Amlodipine and her for follow up BP check. Denies interval symptoms changes Presents with sister. is in hospital with a stroke Last OV 06/21/24 Dorie Root is a (an) 79 year old year old female who is here today for follow-up. Since last visit denies chest pain, SOB, palpitations or lightheadedness. She reports today that she has been taking Lisinopril-HCTZ 10-12.5 mg daily for years (not Lisinopril 10 mg daily) Dorie Root is a 77 year old female from [place], [place] here today self referral. Has h/o [...] Social History Tobacco Use Smoking status: Never Smokeless tobacco: Current ALLERGIES: Patient has no known allergies. CURRENT MEDICATIONS: Current Outpatient Medications Medication Sig memantine (NAMENDA) 5 mg tablet Take 1 tablet by mouth two times a day. amLODIPine (NORVASC) 5 mg tablet Take 1 tablet by mouth once daily. lisinopril-hydroCHLOROthiazide (ZESTORETIC) 10-12.5 mg per tablet Take 1 tablet by mouth once daily. topiramate (TOPAMAX) 25 mg tablet Take 1 tablet by mouth daily at bedtime. escitalopram oxalate (LEXAPRO) 5 mg tablet Take 1 tablet by mouth daily at bedtime. BENEFIBER, GUAR GUM, ORAL Take by mouth. Coenzyme B38-Skjtsvz E 100-5 mg-unit cap 2 gels Orally LUTEIN-ZEAXANTHIN ORAL Take by mouth. cyanocobalamin, vitamin B-12, (VITAMIN B-12) 5,000 mcg subl Dissolve under the tongue. fsh/flx/prim/cur/bor/om3,6,9 5 (OMEGA 3-6-9 FATTY ACIDS ORAL) Take by mouth. Ascorbic Acid (VITAMIN C) 1,000 mg tablet Take 1,000 mg by mouth once daily. ALBUTEROL 90 MCG/ACTUATION AEROSOL INHALER as needed Current Facility-Administered Medications Medication Dose Route Frequency perflutren lipid microspheres 1.3 mL in NaCl (PF) 0.9% 10 mL injection (DEFINITY) INTRAVENOUS DIRECTED PRN sodium chloride 0.9 % (flush) 10 mL (BD POSIFLUSH) 10 mL INTRAVENOUS DIRECTED PRN REVIEW OF SYSTEMS: CARDIOVASCULAR: See present history. PULMONARY:No cough or sputum production GASTROINTESTINAL:no bowel changes. GENITOURINARY:no urinary symptoms. ENDOCRINE:no significant weight loss/gain, heat/cold intolerance. NEUROLOGICAL:no focal [...] Last 3 Encounter BP Readings: Date: BP: 06/21/2024 160/70 06/14/2024 164/63 05/24/2024 167/79 Last 3 Encounter Pulse Readings: Date: Pulse: 06/21/2024 57 06/14/2024 58 05/24/2024 74 Last 3 Encounter Wt Readings: Date: Wt: 06/21/2024 49.9 kg (110 lb 0.2 oz) 05/24/2024 50.5 kg (111 lb 5.3 oz) 06/17/2023 49.9 kg (110 lb) BP 132/60 Pulse 62 Ht 5' 2 (1.58m) Wt 109 lb 2 oz (49.5kg) SpO2 97% BMI 19.95 kg/(m^2). GENERAL:No acute distress HEENT:Atraumatic, normocephalic. NECK: No JVD, no HJR, no carotid bruit, normal carotid upstrokes, no thyromegaly CARDIAC: Regular rhythm. Normal S1 and S2. No murmur, rub or gallop. LUNGS: clear to auscultation, no rhonchi, no rales, no wheezes ABDOMEN: Bowel sounds normal. EXTREMITIES: No peripheral edema NEURO: Oriented to person, place, and time. Appropriate and cooperative, no gross deficit. LABS: Cholesterol, Total (mg/dL) Date Value 07/11/2023 209 HDL Cholesterol (mg/dL) Date Value 07/11/2023 76 LDL Cholesterol (mg/dL) Date Value 07/11/2023 115 Triglyceride (mg/dL) Date Value 07/11/2023 92 No results found for: NMRTOT No results found for: AST , ALT No results found for: CK No results found for: INR TSH (mIU/L) Date Value 06/02/2024 2.540 No results found for: BNP No results found for: PBNP No results found for: HB , HCT , WBC , PLT No results found for: GLUC , K , NA , CHLOR , CO2 , CREAT , BUN , ANION , CA CARDIOVASCULAR MEDICINE TESTING: Carotid US 01/02/23 IMPRESSION [...] ISAAC MATSON Interpreting physician: OLIVIA Malhotra DO 06/21/24 Echo 06/11/23 CONCLUSIONS: - Technically difficult exam [...] a prior CC echocardiographic exam for comparison. Stress nuclear test 06/11/23 CONCLUSIONS: 1. SPECT Perfusion Study: Normal. 2. There is no scintigraphic evidence for inducible ischemia. 3. No evidence of scarred myocardium. 4. Left ventricle is normal in size. The left ventricle systolic function is hyperdynamic. 5. This is a low risk scan. Gated Stress FBP Gated Rest FBP LVEF % 78 ASSESSMENT/PLAN: 1. 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 On Lisinopril-HCTZ and added on Amlodipine 5 mg daily. BP improved. Will continue - Negative pharmacological nuclear test for ischemia 06/11/23. Consider further ICA if symptoms persist or worsen to let me know. - She did not have her lipids completed. This note was partially generated using [employer] voice recognition system, and there may be some incorrect words, spellings, and punctuation that were not noted in checking the note before saving. Some elements copied from my previous notes which have been updated as appropriate and reflect current medical decision making from today. Some elements copied from my previous notes which have been updated as appropriate and reflect current medical decision making from today Yair Chaney M.D., Kahlil CONTACT INFORMATION: Leonel Chaney M.D., Kahlil. Monkey Trainer Clinical nozzle worker [facility] of Medicine of [facility] Staff Explosive Operator Bomb Ezequiel Costa Rust Mail Code [id number] [place] [address] CC: Srinivasan Lezama [address] [place] [id number] documented in this encounter [facility] 07-05-2024 Note HNO ID: [id number] Author: YAIR CHANEY MD Service: ? Author Type: Physician Type: Progress Notes Filed: 07/05/2024 10:20 Note Text: [facility] Stepan Sharif Department of Cardiovascular Medicine SECTION OF REGIONAL CARDIOLOGY OUTPATIENT VISIT DATE July 05, 2024 OUTPATIENT VISIT TYPE ESTABLISHED HISTORY OF PRESENT ILLNESS: Dorie Root is a (an) 79 year old year old female who is here today for follow-up. She was placed on Amlodipine and her for follow up BP check. Denies interval symptoms changes Presents with sister. is in hospital with a stroke Last OV 06/21/24 Dorie Root is a (an) 79 year old year old female who is here today for follow-up. Since last visit denies chest pain, SOB, palpitations or lightheadedness. She reports today that she has been taking Lisinopril-HCTZ 10-12.5 mg daily for years (not Lisinopril 10 mg daily) Dorie Root is a 77 year old female from [place], [place] here today self referral. Has h/o [...] Social History Tobacco Use Smoking status: Never Smokeless tobacco: Current ALLERGIES: Patient has no known allergies. CURRENT MEDICATIONS: Current Outpatient Medications Medication Sig memantine (NAMENDA) 5 mg tablet Take 1 tablet by mouth two times a day. amLODIPine (NORVASC) 5 mg tablet Take 1 tablet by mouth once daily. lisinopril-hydroCHLOROthiazide (ZESTORETIC) 10-12.5 mg per tablet Take 1 tablet by mouth once daily. topiramate (TOPAMAX) 25 mg tablet Take 1 tablet by mouth daily at bedtime. escitalopram oxalate (LEXAPRO) 5 mg tablet Take 1 tablet by mouth daily at bedtime. BENEFIBER, GUAR GUM, ORAL Take by mouth. Coenzyme T97-Ulmvdas E 100-5 mg-unit cap 2 gels Orally LUTEIN-ZEAXANTHIN ORAL Take by mouth. cyanocobalamin, vitamin B-12, (VITAMIN B-12) 5,000 mcg subl Dissolve under the tongue. fsh/flx/prim/cur/bor/om3,6,9 5 (OMEGA 3-6-9 FATTY ACIDS ORAL) Take by mouth. Ascorbic Acid (VITAMIN C) 1,000 mg tablet Take 1,000 mg by mouth once daily. ALBUTEROL 90 MCG/ACTUATION AEROSOL INHALER as needed Current Facility-Administered Medications Medication Dose Route Frequency perflutren lipid microspheres 1.3 mL in NaCl (PF) 0.9% 10 mL injection (DEFINITY) INTRAVENOUS DIRECTED PRN sodium chloride 0.9 % (flush) 10 mL (BD POSIFLUSH) 10 mL INTRAVENOUS DIRECTED PRN REVIEW OF SYSTEMS: CARDIOVASCULAR: See present history. PULMONARY:No cough or sputum production GASTROINTESTINAL:no bowel changes. GENITOURINARY:no urinary symptoms. ENDOCRINE:no significant weight loss/gain, heat/cold intolerance. NEUROLOGICAL:no focal [...] Last 3 Encounter BP Readings: Date: BP: 06/21/2024 160/70 06/14/2024 164/63 05/24/2024 167/79 Last 3 Encounter Pulse Readings: Date: Pulse: 06/21/2024 57 06/14/2024 58 05/24/2024 74 Last 3 Encounter Wt Readings: Date: Wt: 06/21/2024 49.9 kg (110 lb 0.2 oz) 05/24/2024 50.5 kg (111 lb 5.3 oz) 06/17/2023 49.9 kg (110 lb) BP 132/60 Pulse 62 Ht 5' 2 (1.58m) Wt 109 lb 2 oz (49.5kg) SpO2 97% BMI 19.95 kg/(m2). GENERAL:No acute distress HEENT:Atraumatic, normocephalic. NECK: No JVD, no HJR, no carotid bruit, normal carotid upstrokes, no thyromegaly CARDIAC: Regular rhythm. Normal S1 and S2. No murmur, rub or gallop. LUNGS: clear to auscultation, no rhonchi, no rales, no wheezes ABDOMEN: Bowel sounds normal. EXTREMITIES: No peripheral edema NEURO: Oriented to person, place, and time. Appropriate and cooperative, no gross deficit. LABS: Cholesterol, Total (mg/dL) Date Value 07/11/2023 209 HDL Cholesterol (mg/dL) Date Value 07/11/2023 76 LDL Cholesterol (mg/dL) Date Value 07/11/2023 115 Triglyceride (mg/dL) Date Value 07/11/2023 92 No results found for: NMRTOT No results found for: AST , ALT No results found for: CK No results found for: INR TSH (mIU/L) Date Value 06/02/2024 2.540 No results found for: BNP No results found for (more content not included)... [facility] 06-28-2024 Note HNO ID: [id number] Author: CASSIUS JIMÉNEZ MD Service: ? Author Type: Physician Type: Progress Notes Filed: 06/28/2024 07:49 Note Text: [facility] Follow UplConsult VIRTUAL VISIT PROGRESS NOTE This is a virtual visit using [employer] Zoom Video Visit. It required patient-provider interaction for the medical decision making as documented below. I have communicated my name and active licensure. The patient's identity and physical location were verified at the time of this visit. Either the patient or their legal signs and displays sales representative has been informed of the risks and benefits of -- and alternatives to -- treatment through a remote evaluation and consents to proceed with the evaluation remotely Dorie Root is a 79 year old year old female who comes for Comprehensive Geriatric Assessment. HPI: Last seen 05/24/24 No serial memory decline No serial functional decline Dizzy spells - Can happen any time Frustration and getting upset Son (Chung) is a salon shampoo assistant for [employer], lives in [place], and has 2 daughters. is trying to get son to help more with patient. Son scheduled to visit in June. reports son has a calming effect on the patient. Any Family History of dementia? Yes, mother Are you or your spouse a ? NO, Son (Chung) was [employer] Are there any firearms in the home? Ask next visit Social History: Primary language: Bangladeshi Marital Status: Living situation: Home w/ Spouse Socially engaged? 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 does not have a good relationship with 2 of his step children who are not in the patient's life. Wbtdmsp-ac-cms a few weeks ago Concerned about leaving house due to incontinence Caregiver [place] and Stress Are your feeling overwhelmed? NO Do you have concerns about your own health? NO Are you neglecting your own needs? NO Do you have financial concerns? NO Do your fear loss of employment? NO Do you have concerns about verbal/physical abuse? NO Do you feel that you are still capable of taking care of your relative? YES Are you willing to continue being in the caregiver role? YES B-ADLs: (I=independent,A=assistance,D=dep endent) ?Bathing: I, Dressing: I, Toileting: I, Transferring:I, Continence: I, Feeding: I, (Canas Index): 02/04 I-ADLs: Ability to use phone: I, Shopping: A, Cooking: A, Housekeeping: I, Laundry: I, Transportation:I, Medications: I, Handle Finances: D. 3 months ago patient stopped handling finances and now handles them ([place] scale): 78 PMHx: Home Meds: Current Outpatient Medications Medication Sig Dispense Refill topiramate (TOPAMAX) 50 mg tablet Take 1 tablet by mouth daily at bedtime. 30 tablet 2 BENEFIBER, GUAR GUM, ORAL Take by mouth. Coenzyme Y44-Yrceteg E 100-5 mg-unit cap 2 gels Orally LUTEIN-ZEAXANTHIN ORAL Take by mouth. cyanocobalamin, vitamin B-12, (VITAMIN B-12) 5,000 mcg subl Dissolve under the tongue. fsh/flx/prim/cur/bor/om3,6,9 5 (OMEGA 3-6-9 FATTY ACIDS ORAL) Take by mouth. Ascorbic Acid (VITAMIN C) 1,000 mg tablet Take 1,000 mg by mouth once daily. lisinopril (PRINIVIL) 10 mg tablet Take 10 mg by mouth once daily. ALBUTEROL 90 MCG/ACTUATION AEROSOL INHALER as needed 0 0 Medication Review: - ANY HIGH RISK MEDICATIONS (STOPP CRITERIA): YES, Hydroxyzine ALLERGIES No Known Allergies Review of Systems Difficulty chew/swallow: No Pain: No Tremor: No Incontinence - During the last 3 months did you leak urine? NO - Type?: None Constipation/Change in bowel habits: YES, diarrhea and constipation, urge incontinence Vision Positive for vision impairment and wears glasses Follows with food and beverage intern:YES Hearing - Hearing aid : Hearing impairment, wears bilateral hearing aids, did not wear them to appointment. Concerned they might fall. Falls: .: Falls in the last 12 months: Positive: If + falls: Fell stepping off a curb, had to go to ED 06/18/2024 11:08 PM - Radiology, O[place] In Impression IMPRESSION: * No evidence of an acute intracranial process or intracranial mass. * Moderate to severe generalized volume loss, most pronounced in the temporal and parietal lobes. * Hippocampal volumes at the 5th percentile when compared to age matched normal controls by quantitative analysis. * Mild white matter disease which is nonspecific but likely reflective of chronic microvascular ischemia. 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 * Isolated parenchymal microhemorrhage by MRI which is non-specific (more content not included)... [facility] 06-28-2024 History of Present illness Narrative [facility] Follow UplConsult VIRTUAL VISIT PROGRESS NOTE This is a virtual visit using [employer] Zoom Video Visit. It required patient-provider interaction for the medical decision making as documented below. I have communicated my name and active licensure. The patient's identity and physical location were verified at the time of this visit. Either the patient or their legal signs and displays sales representative has been informed of the risks and benefits of -- and alternatives to -- treatment through a remote evaluation and consents to proceed with the evaluation remotely Dorie Root is a 79 year old year old female who comes for Comprehensive Geriatric Assessment. HPI: Last seen 09/23/24 No serial memory decline No serial functional decline Dizzy spells - Can happen any time Frustration and getting upset Son (Chung) is a salon shampoo assistant for [employer], lives in [place], and has 2 daughters. is trying to get son to help more with patient. Son scheduled to visit in June. reports son has a calming effect on the patient. Any Family History of dementia? Yes, mother Are you or your spouse a ? NO, Son (Chung) was [employer] Are there any firearms in the home? Ask next visit Social History: Primary language: Bangladeshi Marital Status: Living situation: Home w/ Spouse Socially engaged? 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 does not have a good relationship with 2 of his step children who are not in the patient's life. Kqiaylw-ti-shs a few weeks ago Concerned about leaving house due to incontinence Caregiver [place] and Stress Are your feeling overwhelmed? NO Do you have concerns about your own health? NO Are you neglecting your own needs? NO Do you have financial concerns? NO Do your fear loss of employment? NO Do you have concerns about verbal/physical abuse? NO Do you feel that you are still capable of taking care of your relative? YES Are you willing to continue being in the caregiver role? YES B-ADLs: (I=independent,A=assistance,D=dep endent) ?Bathing: I, Dressing: I, Toileting: I, Transferring:I, Continence: I, Feeding: I, (Canas Index): 02/04 I-ADLs: Ability to use phone: I, Shopping: A, Cooking: A, Housekeeping: I, Laundry: I, Transportation:I, Medications: I, Handle Finances: D. 3 months ago patient stopped handling finances and now handles them ([place] scale): 7/8 PMHx: Home Meds: Current Outpatient Medications Medication Sig Dispense Refill topiramate (TOPAMAX) 50 mg tablet Take 1 tablet by mouth daily at bedtime. 30 tablet 2 BENEFIBER, GUAR GUM, ORAL Take by mouth. Coenzyme A20-Tahcwbc E 100-5 mg-unit cap 2 gels Orally LUTEIN-ZEAXANTHIN ORAL Take by mouth. cyanocobalamin, vitamin B-12, (VITAMIN B-12) 5,000 mcg subl Dissolve under the tongue. fsh/flx/prim/cur/bor/om3,6,9 5 (OMEGA 3-6-9 FATTY ACIDS ORAL) Take by mouth. Ascorbic Acid (VITAMIN C) 1,000 mg tablet Take 1,000 mg by mouth once daily. lisinopril (PRINIVIL) 10 mg tablet Take 10 mg by mouth once daily. ALBUTEROL 90 MCG/ACTUATION AEROSOL INHALER as needed 0 0 Medication Review: - ANY HIGH RISK MEDICATIONS (STOPP CRITERIA): YES, Hydroxyzine ALLERGIES No Known Allergies Review of Systems Difficulty chew/swallow: No Pain: No Tremor: No Incontinence - During the last 3 months did you leak urine? NO - Type?: None Constipation/Change in bowel habits: YES, diarrhea and constipation, urge incontinence Vision Positive for vision impairment and wears glasses Follows with food and beverage intern:YES Hearing - Hearing aid : Hearing impairment, wears bilateral hearing aids, did not wear them to appointment. Concerned they might fall. Falls: .: Falls in the last 12 months: Positive: If + falls: Fell stepping off a curb, had to go to ED 06/18/2024 11:08 PM - Radiology, Oru In Impression IMPRESSION: * No evidence of an acute intracranial process or intracranial mass. * Moderate to severe generalized volume loss, most pronounced in the temporal and parietal lobes. * Hippocampal volumes at the 5th percentile when compared to age matched normal controls by quantitative analysis. * Mild white matter disease which is nonspecific but likely reflective of chronic microvascular ischemia. 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 * Isolated parenchymal microhemorrhage by MRI which is non-specific. Neuropsych Testing Results: Altogether, findings suggest dysfunction of temporal lobe cognitive functions. 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 Although etiology remains uncertain, her cognitive profile and reported history of decline over the past two years are worrisome for a neurodegenerative process. Additional factors that may influence her cognitive and functional abilities include variations in mood, hearing loss, and side effects of her medication regimen (e.g., Topamax), although these factors alone are unlikely to account for the obtained profile Assessment and Plan: I. Medical /Mental Status/Decision Making Capacity 1) Memory Impairment: MOCA/MMSE scored 19/30 with deficits in multiple areas No serial memory decline No serial functional decline Serologies for potentially reversible etiologies for memory impairment: Vitamin B12, TFTs, Vitamin D all WNL MRI brain with volumetric scans show Hippocampal volumes at 5th percentile as well as remote micro-infarct in Left basal ganglia Discussed risks vs. Benefits of Namenda (Memantine) Of note , MRI Brain done December 2022 Discussed sleep study to evaluate - Will re-discuss next visit Driving Evaluation: Patient able to drive, but only goes to 3 places Finances Management: handles all finances starting 3 months ago 2) Vitamin B12 Deficiency: Levels > 2,000 o 06/02/24 3) Seizure Disorder vs. Migraines?: No longer taking Topamax. 4) Vertigo/Dizziness: Dizziness Perists Denies true vertigo per se Has seen Neurology who advised resumption of Topamax which family have declined because of drug interactions Cardiology just started antihyertensive - Will need to monitor closely for any worsening of dizziness 5) Hearing loss: Wears hearing head -Just started wearing a few weeks ago Encouraged wearing hearing aids regularly as will help memory as well 6) Anxiety: Persists Now OFF Hydroxyzine and on Lecxapro 5mg qHS Next mendez[p may be increasing Lexapro fpse to 10 mg qHS Advanced Care Planning: - HCPOA: Plan on asking next visit Cassius Jiménez [facility] documented in this encounter [facility] 06-21-2024 Note HNO ID: [id number] Author: YAIR CHANEY MD Service: ? Author Type: Physician Type: Progress Notes Filed: 06/21/2024 11:14 Note Text: [facility] Stepan Sharif Department of Cardiovascular Medicine SECTION OF REGIONAL CARDIOLOGY OUTPATIENT VISIT DATE June 21, 2024 OUTPATIENT VISIT TYPE ESTABLISHED HISTORY OF PRESENT ILLNESS: Dorie Root is a (an) 79 year old year old female who is here today for follow-up. Since last visit denies chest pain, SOB, palpitations or lightheadedness. She reports today that she has been taking Lisinopril-HCTZ 10-12.5 mg daily for years (not Lisinopril 10 mg daily) Presents with her Last OV 06/17/23 Dorie Root is a 77 year old female from [place], [place] here today self referral. Has h/o [...] her asthma. On Lisinopril Presents with her No past medical history on file. No past surgical history on file. No family history on file. SOCIAL HISTORY Social History Tobacco Use Smoking status: Never Smokeless tobacco: Current ALLERGIES: Patient has no known allergies. CURRENT MEDICATIONS: Current Outpatient Medications Medication Sig escitalopram oxalate (LEXAPRO) 5 mg tablet Take 1 tablet by mouth daily at bedtime. BENEFIBER, GUAR GUM, ORAL Take by mouth. Coenzyme P94-Sqbmiso E 100-5 mg-unit cap 2 gels Orally LUTEIN-ZEAXANTHIN ORAL Take by mouth. cyanocobalamin, vitamin B-12, (VITAMIN B-12) 5,000 mcg subl Dissolve under the tongue. fsh/flx/prim/cur/bor/om3,6,9 5 (OMEGA 3-6-9 FATTY ACIDS ORAL) Take by mouth. Ascorbic Acid (VITAMIN C) 1,000 mg tablet Take 1,000 mg by mouth once daily. lisinopril (PRINIVIL) 10 mg tablet Take 10 mg by mouth once daily. ALBUTEROL 90 MCG/ACTUATION AEROSOL INHALER as needed topiramate (TOPAMAX) 25 mg tablet Take 1 tablet by mouth daily at bedtime. Current Facility-Administered Medications Medication Dose Route Frequency [...] Last 3 Encounter BP Readings: Date: BP: 06/21/2024 180/72 06/14/2024 164/63 05/24/2024 167/79 Last 3 Encounter Pulse Readings: Date: Pulse: 06/21/2024 57 06/14/2024 58 05/24/2024 74 Last 3 Encounter Wt Readings: Date: Wt: 06/21/2024 49.9 kg (110 lb 0.2 oz) 05/24/2024 50.5 kg (111 lb 5.3 oz) 06/17/2023 49.9 kg (110 lb) BP 160/70 Pulse 57 Ht 5' 2 (1.58m) Wt 110 lb 0.2 oz (49.9kg) SpO2 98% BMI 20.12 kg/(m2). GENERAL:No acute distress HEENT:Atraumatic, normocephalic. NECK: No JVD, no carotid bruit, normal carotid upstrokes, no thyromegaly CARDIAC: Regular rhythm. Normal S1 and S2. No murmur, rub or gallop. LUNGS: clear to auscultation, no rhonchi, no rales, no wheezes ABDOMEN: Bowel sounds normal. EXTREMITIES: No peripheral edema NEURO: Oriented to person, place, and time. Appropriate and cooperative, no gross deficit. LABS: Cholesterol, Total (mg/dL) Date Value 07/11/2023 209 HDL Cholesterol (mg/dL) Date Value 07/11/2023 76 LDL Cholesterol (mg/dL) Date Value 07/11/2023 115 Triglyceride (mg/dL) Date Value 07/11/2023 92 No results found for: NMRTOT No results found for: AST , ALT No results found for: CK No results found for: INR TSH (mIU/L) Date Value 06/02/2024 2.540 No results found for: BNP No results found for: PBNP No results found for: HB , HCT , WBC , PLT No results found for: GLUC , K , NA , CHLOR , CO2 , CREAT , BUN , ANION , CA CARDIOVASCULAR MEDICINE TESTING: Carotid US 01/02/23 IMPRESSION RIGHT SIDE (more content not included)... [facility] 06-21-2024 History of Present illness Narrative Images from the original note were not included. [facility] V[facility] Stepan Sharif Department of Cardiovascular Medicine SECTION OF REGIONAL CARDIOLOGY OUTPATIENT VISIT DATE June 21, 2024 OUTPATIENT VISIT TYPE ESTABLISHED HISTORY OF PRESENT ILLNESS: Dorie Root is a (an) 79 year old year old female who is here today for follow-up. Since last visit denies chest pain, SOB, palpitations or lightheadedness. She reports today that she has been taking Lisinopril-HCTZ 10-12.5 mg daily for years (not Lisinopril 10 mg daily) Presents with her Last OV 06/17/23 Dorie Root is a 77 year old female from [place], [place] here today self referral. Has h/o [...] her asthma. On Lisinopril Presents with her No past medical history on file. No past surgical history on file. No family history on file. SOCIAL HISTORY Social History Tobacco Use Smoking status: Never Smokeless tobacco: Current ALLERGIES: Patient has no known allergies. CURRENT MEDICATIONS: Current Outpatient Medications Medication Sig escitalopram oxalate (LEXAPRO) 5 mg tablet Take 1 tablet by mouth daily at bedtime. BENEFIBER, GUAR GUM, ORAL Take by mouth. Coenzyme R33-Dplwsul E 100-5 mg-unit cap 2 gels Orally LUTEIN-ZEAXANTHIN ORAL Take by mouth. cyanocobalamin, vitamin B-12, (VITAMIN B-12) 5,000 mcg subl Dissolve under the tongue. fsh/flx/prim/cur/bor/om3,6,9 5 (OMEGA 3-6-9 FATTY ACIDS ORAL) Take by mouth. Ascorbic Acid (VITAMIN C) 1,000 mg tablet Take 1,000 mg by mouth once daily. lisinopril (PRINIVIL) 10 mg tablet Take 10 mg by mouth once daily. ALBUTEROL 90 MCG/ACTUATION AEROSOL INHALER as needed topiramate (TOPAMAX) 25 mg tablet Take 1 tablet by mouth daily at bedtime. Current Facility-Administered Medications Medication Dose Route Frequency [...] Last 3 Encounter BP Readings: Date: BP: 06/21/2024 180/72 06/14/2024 164/63 05/24/2024 167/79 Last 3 Encounter Pulse Readings: Date: Pulse: 06/21/2024 57 06/14/2024 58 05/24/2024 74 Last 3 Encounter Wt Readings: Date: Wt: 06/21/2024 49.9 kg (110 lb 0.2 oz) 05/24/2024 50.5 kg (111 lb 5.3 oz) 06/17/2023 49.9 kg (110 lb) BP 160/70 Pulse 57 Ht 5' 2 (1.58m) Wt 110 lb 0.2 oz (49.9kg) SpO2 98% BMI 20.12 kg/(m^2). GENERAL:No acute distress HEENT:Atraumatic, normocephalic. NECK: No JVD, no carotid bruit, normal carotid upstrokes, no thyromegaly CARDIAC: Regular rhythm. Normal S1 and S2. No murmur, rub or gallop. LUNGS: clear to auscultation, no rhonchi, no rales, no wheezes ABDOMEN: Bowel sounds normal. EXTREMITIES: No peripheral edema NEURO: Oriented to person, place, and time. Appropriate and cooperative, no gross deficit. LABS: Cholesterol, Total (mg/dL) Date Value 07/11/2023 209 HDL Cholesterol (mg/dL) Date Value 07/11/2023 76 LDL Cholesterol (mg/dL) Date Value 07/11/2023 115 Triglyceride (mg/dL) Date Value 07/11/2023 92 No results found for: NMRTOT No results found for: AST , ALT No results found for: CK No results found for: INR TSH (mIU/L) Date Value 06/02/2024 2.540 No results found for: BNP No results found for: PBNP No results found for: HB , HCT , WBC , PLT No results found for: GLUC , K , NA , CHLOR , CO2 , CREAT , BUN , ANION , CA CARDIOVASCULAR MEDICINE TESTING: Carotid US 01/02/23 IMPRESSION [...] ISAAC MATSON Interpreting physician: OLIVIA Malhotra DO 06/21/24 Echo 06/11/23 CONCLUSIONS: - Technically difficult exam [...] a prior CC echocardiographic exam for comparison. Stress nuclear test 06/11/23 CONCLUSIONS: 1. SPECT Perfusion Study: Normal. 2. There is no scintigraphic evidence for inducible ischemia. 3. No evidence of scarred myocardium. 4. Left ventricle is normal in size. The left ventricle systolic function is hyperdynamic. 5. This is a low risk scan. Gated Stress FBP Gated Rest FBP LVEF % 78 ASSESSMENT/PLAN: 1. HTN, H/o episodic vaguely described chest pain, Asthma, chronic baseline SOB, vertigo/Dizziness in s/o personal h/o rheumatic fever in her teenage requiring tx with PCN, mild MR/AR, moderate TR, mild pHTN - Target BP <140/90 mmHg. On Lisinopril-HCTZ. Will add Amlodipine 5 mg daily and follow up BP check in 2 weeks - Negative pharmacological nuclear test for ischemia 06/11/23. Consider further ICA if symptoms persist or worsen to let me know. - She did not have her lipids completed. This note was partially generated using [employer] voice recognition system, and there may be some incorrect words, spellings, and punctuation that were not noted in checking the note before saving. Some elements copied from my previous notes which have been updated as appropriate and reflect current medical decision making from today Yair Chaney M.D., Kahlil CONTACT INFORMATION: Leonel Chaney M.D., Kahlil. Monkey Trainer Clinical nozzle worker [facility] Staff Explosive Operator Bomb Ezequiel Milligan [facility] Mail Code [id number] [place] [address] CC: Srinivasan Lezama [facility] [place] [address] documented in this encounter [facility] 06-18-2024 History of Present illness Narrative Radiology Service Progress Note PATIENT NAME: Dorie Root DATE OF SERVICE: June 18, 2024 TIME: 5:42 PM PATIENT IDENTITY VERIFICATION COMPLETED USING TWO (2) IDENTIFIERS: Name and Date of confirmed by patient verbally and Name and Date of confirmed by identification band FALL SCREENING: Has the patient had 2 falls in the last year or 1 fall with injury or currently using an Ambulatory Assistive Device (Walker, Cane, Wheelchair, Crutches, etc.)? No PATIENT GENDER DATA: Female. status: : No status: NO. PATIENT RELEVANT IMPLANT DATA REVIEWED: Yes PATIENT PRESENTS WITH AN IMPLANTABLE OR ATTACHED COSTUME RENTAL CLERK: No RADIOLOGY DEPARTMENT: MR; Exam(s) Completed: Head: Routine Brain Dementia PERIPHERAL IV DATA: Not applicable SIGNED BY: RT Ruth(R) Boo FULLER(R) June 18, 2024 5:42 PM documented in this encounter [facility] 06-18-2024 Note HNO ID: [id number] Author: BLESSED SIMS RT(R) Service: Radiology Author Type: Power Distributor Type: Progress Notes Filed: 06/18/2024 17:42 Note Text: Radiology Service Progress Note PATIENT NAME: Dorie Root DATE OF SERVICE: June 18, 2024 TIME: 5:42 PM PATIENT IDENTITY VERIFICATION COMPLETED USING TWO (2) IDENTIFIERS: Name and Date of confirmed by patient verbally and Name and Date of confirmed by identification band FALL SCREENING: Has the patient had 2 falls in the last year or 1 fall with injury or currently using an Ambulatory Assistive Device (Walker, Cane, Wheelchair, Crutches, etc.)? No PATIENT GENDER DATA: Female. status: : No status: NO. PATIENT RELEVANT IMPLANT DATA REVIEWED: Yes PATIENT PRESENTS WITH AN IMPLANTABLE OR ATTACHED COSTUME RENTAL CLERK: No RADIOLOGY DEPARTMENT: MR; Exam(s) Completed: Head: Routine Brain Dementia PERIPHERAL IV DATA: Not applicable SIGNED BY: RT Ruth(Maria Eugenia) Boo FULLER(R) June 18, 2024 5:42 PM [facility] 06-14-2024 Note HNO ID: [id number] Author: ISAAC MATSON MD Service: ? Author Type: Physician Type: Progress Notes Filed: 06/14/2024 11:32 Note Text: NEUROLOGY PROGRESS NOTE Dorie Root is a 79 year old female. Who has a history of headaches comes in for follow up. Interval History Dorie Root is a 79 year old female, with a history of [...] has had therapy but to no avail. Patient complaining of headaches today. She has headaches before but I did put her on Topamax as she thought it may have helped. She is off it now will restart at 25 mg at bedtime. She is seeing general neurology for her memory issues. She is scheduled for an MRI this Friday. Comes in today for follow-up visit. There is no problem list on file for this patient. No past surgical history on file. Current Outpatient Medications on File Prior to Visit Medication Sig escitalopram oxalate (LEXAPRO) 5 mg tablet Take 1 tablet by mouth daily at bedtime. BENEFIBER, GUAR GUM, ORAL Take by mouth. Coenzyme M30-Bznubxl E 100-5 mg-unit cap 2 gels Orally LUTEIN-ZEAXANTHIN ORAL Take by mouth. cyanocobalamin, vitamin B-12, (VITAMIN B-12) 5,000 mcg subl Dissolve under the tongue. fsh/flx/prim/cur/bor/om3,6,9 5 (OMEGA 3-6-9 FATTY ACIDS ORAL) Take by mouth. Ascorbic Acid (VITAMIN C) 1,000 mg tablet Take 1,000 mg by mouth once daily. lisinopril (PRINIVIL) 10 mg tablet Take 10 mg by mouth once daily. ALBUTEROL 90 MCG/ACTUATION AEROSOL INHALER as needed Current Facility-Administered Medications on File Prior to Visit Medication perflutren lipid microspheres 1.3 mL in NaCl (PF) 0.9% 10 mL injection (DEFINITY) sodium chloride 0.9 % (flush) 10 mL (BD POSIFLUSH) Social History Tobacco Use Smoking status: Never Smokeless tobacco: Current family history is not on file. GENERAL:No weight loss, malaise or fevers., SEE HPI HEENT: No changes in hearing or vision, no [...] HPI. All systems reviewed and are negative 06/14/24 1108 BP: 164/63 Pulse: (!) 58 PHYSICAL EXAMINATION: General appearance: well appearing, alert, [...] nose-finger intact bilaterally GAIT: Normal-based IMPRESSION: 1. Headache disorder PLAN: As above. Any problems or concerns to call me or primary care physician immediately or go straight to the emergency department Return in about 3 months (around 09/14/2024). ASSESSMENT/PLAN: 1. Headache disorder - ICD9: 784.0, ICD10: R51.9 Isaac Matson MD I spent a total of 30 minutes on the date of the service which included preparing to see the patient, [id number] patient care, completing clinical documentation, obtaining and/or reviewing separately obtained history, performing a medically appropriate examination, counseling and educating the patient/family/caregiver, and ordering medications, tests, or procedures. SIGNATURE: Isaac Matson MD PATIENT NAME: Dorie Root DATE: June 14, 2024 TIME: 11:30 AM 06/13/2024 PROMIS Global Health Physical Health Summary Physical health: Very good Everyday physical activity, ability: Moderately Fatigue: Moderate Pain level: 4 General health: Good Social activities/roles, ability: Good Physical Health T-Score 42.3 (Good) Physical Health Percentile 22 PROMIS Global Health Mental Health Summary Quality of life: Good Mental health (mood,thinking): Good Social satisfaction: Fair Emotional problems (anxious,depressed): Sometimes Mental Health T-Score 41.1 (Good) Mental Health Percentile 19 PHQ-9 Score: 5(Mild Depression) PHQ-9 Self-Harm: Not at all RONI-7 Score: 7(Mild Anxiety) NEURO-QOL Cognitive Function T-Score 40(Mild Dysfunction) Neuro-Qol Cognitive Function Percentile 16 PROMIS Physical Function T-Score 39(Moderate Dysfunction) [place] (more content not included)... [facility] 06-14-2024 History of Present illness Narrative NEUROLOGY PROGRESS NOTE Dorie Root is a 79 year old female. Who has a history of headaches comes in for follow up. Interval History Dorie Root is a 79 year old female, with a history of [...] has had therapy but to no avail. Patient complaining of headaches today. She has headaches before but I did put her on Topamax as she thought it may have helped. She is off it now will restart at 25 mg at bedtime. She is seeing general neurology for her memory issues. She is scheduled for an MRI this Friday. Comes in today for follow-up visit. There is no problem list on file for this patient. No past surgical history on file. Current Outpatient Medications on File Prior to Visit Medication Sig escitalopram oxalate (LEXAPRO) 5 mg tablet Take 1 tablet by mouth daily at bedtime. BENEFIBER, GUAR GUM, ORAL Take by mouth. Coenzyme [id number] E 100-5 mg-unit cap 2 gels Orally LUTEIN-ZEAXANTHIN ORAL Take by mouth. cyanocobalamin, vitamin B-12, (VITAMIN B-12) 5,000 mcg subl Dissolve under the tongue. fsh/flx/prim/cur/bor/om3,6,9 5 (OMEGA 3-6-9 FATTY ACIDS ORAL) Take by mouth. Ascorbic Acid (VITAMIN C) 1,000 mg tablet Take 1,000 mg by mouth once daily. lisinopril (PRINIVIL) 10 mg tablet Take 10 mg by mouth once daily. ALBUTEROL 90 MCG/ACTUATION AEROSOL INHALER as needed Current Facility-Administered Medications on File Prior to Visit Medication perflutren lipid microspheres 1.3 mL in NaCl (PF) 0.9% 10 mL injection (DEFINITY) sodium chloride 0.9 % (flush) 10 mL (BD POSIFLUSH) Social History Tobacco Use Smoking status: Never Smokeless tobacco: Current family history is not on file. GENERAL:No weight loss, malaise or fevers., SEE HPI HEENT: No changes in hearing or vision, no [...] HPI. All systems reviewed and are negative 06/14/24 1108 BP: 164/63 Pulse: (!) 58 PHYSICAL EXAMINATION: General appearance: well appearing, alert, [...] nose-finger intact bilaterally GAIT: Normal-based IMPRESSION: 1. Headache disorder PLAN: As above. Any problems or concerns to call me or primary care physician immediately or go straight to the emergency department Return in about 3 months (around 09/14/2024). ASSESSMENT/PLAN: 1. Headache disorder - ICD9: 784.0, ICD10: R51.9 Isaac Matson MD I spent a total of 30 minutes on the date of the service which included preparing to see the patient, [id number] patient care, completing clinical documentation, obtaining and/or reviewing separately obtained history, performing a medically appropriate examination, counseling and educating the patient/family/caregiver, and ordering medications, tests, or procedures. SIGNATURE: Isaac Matson MD PATIENT NAME: Dorie Root DATE: June 14, 2024 TIME: 11:30 AM 06/13/2024 PROMIS Global Health Physical Health Summary Physical health: Very good Everyday physical activity, ability: Moderately Fatigue: Moderate Pain level: 4 General health: Good Social activities/roles, ability: Good Physical Health T-Score 42.3 (Good) Physical Health Percentile 22 PROMIS Global Health Mental Health Summary Quality of life: Good Mental health (mood,thinking): Good Social satisfaction: Fair Emotional problems (anxious,depressed): Sometimes Mental Health T-Score 41.1 (Good) Mental Health Percentile 19 PHQ-9 Score: 5(Mild Depression) PHQ-9 Self-Harm: Not at all RONI-7 Score: 7(Mild Anxiety) NEURO-QOL Cognitive Function T-Score 40(Mild Dysfunction) Neuro-Qol Cognitive Function Percentile 16 PROMIS Physical Function T-Score 39(Moderate Dysfunction) PROMIS Physical Function Percentile 14 PROMIS Pain Interference T-Score 59(Mild) PROMIS Pain Interference Percentile 18 Percentiles provide an indication of how a patient's score ranks in relation to the [place] general population. > 31st percentile is within normal limits or better *< 31st percentile is at least SD worse than population, which may be clinically relevant < 16th percentile is at least 1 SD worse than population and warrants attention 06/13/2024 PROMIS Global Health Physical Health Summary Physical health: Very good Everyday physical activity, ability: Moderately Fatigue: Moderate Pain level: 4 General health: Good Social activities/roles, ability: Good Physical Health T-Score 42.3 (Good) Physical Health Percentile 22 PROMIS Global Health Mental Health Summary Quality of life: Good Mental health (mood,thinking): Good Social satisfaction: Fair Emotional problems (anxious,depressed): Sometimes Mental Health T-Score 41.1 (Good) Mental Health Percentile 19 PHQ-9 Score: 5(Mild Depression) PHQ-9 Self-Harm: Not at all RONI-7 Score: 7(Mild Anxiety) NEURO-QOL Cognitive Function T-Score 40(Mild Dysfunction) Neuro-Qol Cognitive Function Percentile 16 PROMIS Physical Function T-Score 39(Moderate Dysfunction) PROMIS Physical Function Percentile 14 PROMIS Pain Interference T-Score 59(Mild) PROMIS Pain Interference Percentile 18 Percentiles provide an indication of how a patient's score ranks in relation to the [place] general population. > 31st percentile is within normal limits or better *< 31st percentile is at least SD worse than population, which may be clinically relevant < 16th percentile is at least 1 SD worse than population and warrants attention documented in this encounter [place] [id number] Note HNO ID: [id number] Author: TA JENSEN LPN Service: ? Author Type: LICENSED NURSE Type: Progress Notes Filed: 06/14/2024 11:32 Note Text: 06/13/2024 PROMIS Global Health Physical Health Summary Physical health: Very good Everyday physical activity, ability: Moderately Fatigue: Moderate Pain level: 4 General health: Good Social activities/roles, ability: Good Physical Health T-Score 42.3 (Good) Physical Health Percentile 22 PROMIS Global Health Mental Health Summary Quality of life: Good Mental health (mood,thinking): Good Social satisfaction: Fair Emotional problems (anxious,depressed): Sometimes Mental Health T-Score 41.1 (Good) Mental Health Percentile 19 PHQ-9 Score: 5(Mild Depression) PHQ-9 Self-Harm: Not at all RONI-7 Score: 7(Mild Anxiety) NEURO-QOL Cognitive Function T-Score 40(Mild Dysfunction) Neuro-Qol Cognitive Function Percentile 16 PROMIS Physical Function T-Score 39(Moderate Dysfunction) PROMIS Physical Function Percentile 14 PROMIS Pain Interference T-Score 59(Mild) PROMIS Pain Interference Percentile 18 Percentiles provide an indication of how a patient's score ranks in relation to the [place] general population. > 31st percentile is within normal limits or better *< 31st percentile is at least ? SD worse than population, which may be clinically relevant < 16th percentile is at least 1 SD worse than population and warrants attention [facility] 05-28-2024 Note HNO ID: [id number] Author: DARRELL GALLO, PhD Service: ? Author Type: Physician Type: Progress Notes Filed: 06/01/2024 15:04 Note Text: PATIENT NAME: Dorie Root 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 The current evaluation was performed in the context of medical care and a clinical referral question and not for purposes of a forensic, disability, or workers' compensation evaluation. This assessment is part of a multidisciplinary evaluation conducted in the [facility] Brain [facility]. The assessment consisted of a brief interview with the patient and collateral (when available), neurobehavioral examination, and standardized neuropsychological assessment. Given the targeted nature of the referral, details of the patient's history, which are already known to the referral source, are only briefly summarized. Please see patient medical records for more detailed information. RELEVANT BACKGROUND: Ms. Dorie Root is an 79 year old, right-handed, , White female referred for a neuropsychological evaluation in the context of cognitive concerns. MoCA score in a visit with Dr. Jiménez (05/24/24) was 19/30. The patient was accompanied to the evaluation by her , and the history was taken from both sources. According to the patient and her , cognitive changes began insidiously approximately 2 years ago and have worsened over time. REVIEW OF COGNITIVE FUNCTIONS: Memory: short-term memory problems (difficulty recalling conversations, events, names), reminders may help, she repeats herself Attention/Working Memory: distractible, harder to remain on task Executive Functions: occasionally misplaces items, mild difficulty making decisions Language: word finding problems Visuospatial: no changes Processing Speed: slowed Motor: no changes FUNCTIONAL STATUS: Driving: she drives very little and remains local due to episodes of dizziness Medications: manages herself (with occasional help from her ), uses a list to manage Finances: assumed responsibility about 3 months ago, as patient was having difficulty Appointments: manages herself using a datebook The patient reported that her mood varies, and she experiences anxiety and depression at times. She also is more reluctant to travel. Suicidal ideation was denied. There were no additional behavioral/personality changes reported. RECENT WORK-UP: MRI Brain: 01/16/2023 IMPRESSION: Unremarkable MRI brain for age. No evidence of hydrocephalus or posterior fossa abnormality. No acute intracranial infarction. Updated brain MRI pending (06/18/2024) SOCIAL/ACADEMIC/OCCUPATIONAL BACKGROUND: Development: No complications or developmental delays Medical History: hypertension, rheumatic fever (childhood) Surgical History: none reported Neurological History: no history of head injury, stroke, or seizure Current Medications (in Epic): Lexapro, topiramate, Albuterol, lisinopril, Benefiber, coenzyme Q-10, lutein-zeaxanthin, vitamin B-12, omega-3 fatty acids, vitamin C. Psychiatric History: The patient was initially treated for anxiety/depression starting about 6 months ago. She recently discontinued hydroxyzine and started Lexapro. Substance Use: Current substance use is unremarkable. Past substance use is unremarkable. Family Medical History: memory problems (mother, late 80's) Educational History: 12 years, Denied early attention problems or learning difficulties. 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 Social History: The patient is and has 4 children. The patient lives with her . PHYSICAL FUNCTIONING: Motor Problems: dizziness, reduced balance Sensory Problems: reduced hearing (got hearing aids about 10 days ago), loss of smell for decades Pain: denied chronic pain Sleep: Average of 6 hours per night, reported that she may awaken after a few hours and read, sometimes she is able to resume sleep. She feels rested upon awakening. No reported dream enactment behaviors. She does not nap. Autonomic Dysfunction: none BEHAVIORAL OBSERVATIONS: Mood: euthymic, initially reported anxiety at beginning of testing Affect: broad Rapport: amicable Speech: fluent Comprehension: required elaboration/repetition of test instructions Historian: generally good Thought Processes: logical Motor: normal Sensory Problems: reduced hearing (not wearing her hearing aids), wore glasses Participation: active Attention: appeared alert and attentive Behavior: test-taking style was generally rapid Effort/Validity: appropriate; results are considered valid ? COGNITIVE RESULTS: Estimated premorbid abilities: Based on a combination of her single word pierre (more content not included)... 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 The current evaluation was performed in the context of medical care and a clinical referral question and not for purposes of a forensic, disability, or workers' compensation evaluation. This assessment is part of a multidisciplinary evaluation conducted in the [facility] Brain [facility]. The assessment consisted of a brief interview with the patient and collateral (when available), neurobehavioral examination, and standardized neuropsychological assessment. Given the targeted nature of the referral, details of the patient's history, which are already known to the referral source, are only briefly summarized. Please see patient medical records for more detailed information. RELEVANT BACKGROUND: Ms. Dorie Root is an 79 year old, right-handed, , White female referred for a neuropsychological evaluation in the context of cognitive concerns. MoCA score in a visit with Dr. Jiménez (05/24/24) was 19/30. The patient was accompanied to the evaluation by her , and the history was taken from both sources. According to the patient and her , cognitive changes began insidiously approximately 2 years ago and have worsened over time. REVIEW OF COGNITIVE FUNCTIONS: Memory: short-term memory problems (difficulty recalling conversations, events, names), reminders may help, she repeats herself Attention/Working Memory: distractible, harder to remain on task Executive Functions: occasionally misplaces items, mild difficulty making decisions Language: word finding problems Visuospatial: no changes Processing Speed: slowed Motor: no changes FUNCTIONAL STATUS: Driving: she drives very little and remains local due to episodes of dizziness Medications: manages herself (with occasional help from her ), uses a list to manage Finances: assumed responsibility about 3 months ago, as patient was having difficulty Appointments: manages herself using a datebook The patient reported that her mood varies, and she experiences anxiety and depression at times. She also is more reluctant to travel. Suicidal ideation was denied. There were no additional behavioral/personality changes reported. RECENT WORK-UP: MRI Brain: 01/16/2023 IMPRESSION: Unremarkable MRI brain for age. No evidence of hydrocephalus or posterior fossa abnormality. No acute intracranial infarction. Updated brain MRI pending (06/18/2024) SOCIAL/ACADEMIC/OCCUPATIONAL BACKGROUND: Development: No complications or developmental delays Medical History: hypertension, rheumatic fever (childhood) Surgical History: none reported Neurological History: no history of head injury, stroke, or seizure Current Medications (in Epic): Lexapro, topiramate, Albuterol, lisinopril, Benefiber, coenzyme Q-10, lutein-zeaxanthin, vitamin B-12, omega-3 fatty acids, vitamin C. Psychiatric History: The patient was initially treated for anxiety/depression starting about 6 months ago. She recently discontinued hydroxyzine and started Lexapro. Substance Use: Current substance use is unremarkable. Past substance use is unremarkable. Family Medical History: memory problems (mother, late 80's) Educational History: 12 years, Denied early attention problems or learning difficulties. 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 Social History: The patient is and has 4 children. The patient lives with her . PHYSICAL FUNCTIONING: Motor Problems: dizziness, reduced balance Sensory Problems: reduced hearing (got hearing aids about 10 days ago), loss of smell for decades Pain: denied chronic pain Sleep: Average of 6 hours per night, reported that she may awaken after a few hours and read, sometimes she is able to resume sleep. She feels rested upon awakening. No reported dream enactment behaviors. She does not nap. Autonomic Dysfunction: none BEHAVIORAL OBSERVATIONS: Mood: euthymic, initially reported anxiety at beginning of testing Affect: broad Rapport: amicable Speech: fluent Comprehension: required elaboration/repetition of test instructions Historian: generally good Thought Processes: logical Motor: normal Sensory Problems: reduced hearing (not wearing her hearing aids), wore glasses Participation: active Attention: appeared alert and attentive Behavior: test-taking style was generally rapid Effort/Validity: appropriate; results are considered valid ? COGNITIVE RESULTS: Estimated premorbid abilities: Based on a combination of her single word reading performance and demographic variables, Ms. Hagan premorbid intellectual abilities are estimated to be in the average range. Attention/Processing Speed: Basic auditory attentional span was superior. Auditory working memory was average to high average. Performance on a measure of visuomotor processing speed and sequencing was superior. Processing speed on a digit-symbol architect manager task was high average. Speeded color naming was high average, and speeded word reading was high average. Executive functioning: Verbal abstract reasoning ability was low average. Visual planning/problem solving was average. Mental flexibility and visuomotor set shifting was high average. Verbal response inhibition was average (with an extremely high number of errors), and the same task with a set switching component was high average. Language: Confrontation naming was reduced but within broad normal limits. Lexical verbal fluency was average. Semantic verbal fluency was low average. Learning and Memory: Story learning was low average. Following a delay, story recall was moderately low, and recognition of story elements was average. Word list learning was extremely low. Following a delay, word recall was extremely low, and recognition of the words was extremely low. Learning of geometric shapes was extremely low. Following a delay, recall of the shapes was extremely low, and recognition was moderately low. Visuospatial: Visuoconstruction (block assembly) ability was average. Copy of individual geometric shapes was grossly normal. Visuoperception on an angle estimation task was low average. Mood: Ms. Root endorsed moderate symptoms of depression on a self-report measure. SUMMARY/IMPRESSIONS: Neuropsychological evaluation revealed impairments in memory. Specifically, the patient demonstrated moderately low to extremely low range learning, delayed recall, and recognition of unstructured information (word list, shapes). She also showed moderately low range delayed recall of short stories, although she improved to normal levels with recognition cues. Mild relative weaknesses were observed in aspects of language (naming, semantic fluency), and she committed a significant number of errors on a verbal inhibition task. On a brief mood screening measure, she indicated moderate symptoms of depression. Overall, results of this exam indicate predominant impairment in memory functions, including impaired delayed recall across all memory measures and inconsistent benefit from recognition cues. Relative weaknesses were also observed in aspects of language function. Altogether, findings suggest dysfunction of temporal lobe cognitive functions. 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 Although etiology remains uncertain, her cognitive profile and reported history of decline over the past two years are worrisome for a neurodegenerative process. Additional factors that may influence her cognitive and functional abilities include variations in mood, hearing loss, and side effects of her medication regimen (e.g., Topamax), although these factors alone are unlikely to account for the obtained profile. RECOMMENDATIONS 1. Repeat neuropsychological evaluation may be considered in 12-18 months to evaluate for further cognitive changes and to update diagnostic considerations and treatment plans. 2. Given her performance in this exam and complaints of memory difficulties, the patient may benefit from the use of organizational strategies and memory techniques. Creating lists and using a journal, notebook, or erasable whiteboard to record events or appointments may be useful. Use of mnemonic strategies (e.g., visualization, creating associations, mental imagery) has been shown to improve recall. Establishing routines may also be helpful in remembering activities or tasks to accomplish. Lastly, identifying a memory place in which to keep frequently used items (e.g., glasses, keys) may be useful. 3. Periodic assistance and oversight of daily activities (e.g., medication use, appointments, meal preparation, etc.) by others is encouraged. 4. Consistent use of hearing aids is also recommended to increase the likelihood of hearing and retaining information. 5. The patient is encouraged to maintain a healthy lifestyle to optimize brain health and limit risk factors for stroke and cognitive decline. Continued engagement in regular activity and exercise is recommended and may be beneficial. Continued involvement in cognitively stimulating activities is also recommended (i.e., reading, puzzles, gardening). Lastly, attention to nutritional factors and proper diet is encouraged. 6. Review of the patient's medication regimen may be considered to minimize medications with negative effects on cognitive function (e.g., topiramate). OVERVIEW The graph below shows performance in different areas of cognitive function. The table is intended to serve as a summary of the data and may not include each individual test score derived. See 'Test Results' and 'Impressions/Summary' section for a comprehensive discussion of all test scores. Very Superior Superior High Average X X Average X S X X n/a Low Average S X Moderately Low S F Extremely Low W,F W,F W Estimated IQ Learning Memory Recog- nition Attention Processing Speed Executive Language Visuo- spatial Motor W=Word List; S= Stories; F= Figures This table should not be presented separate from the Neuropsychological Evaluation Report dated 05/28/2024. This report is meant to be considered as only one part of the comprehensive examination. The results will be communicated to the referring physician via shared electronic medical record. Darrell Gallo, Ph.D., ABPP-CN Board Certified in Clinical Neuropsychology Neurobehavioral status exam/clinical interview by neuropsychologist = 1 hour Neuropsychological evaluation services by neuropsychologist = 2 hours Neuropsychological test administration/scoring by senior database administrator = 2 hours, 30 minutes documented in this encounter [facility] 05-24-2024 Instructions Cassius Jiménez MD - 05/24/2024 3:03 PM EDT PLEASURE SEEING YOU TODAY 1) VITAMIN B12, VITAMIN D AND THYROID BLOOD TESTS 2) MRI BRAIN WITH VOLUMETRIC SCANS 3) THANKS FOR GETTING HEARING AIDS THESE WILL HELP YOUR MEMORY 4) PLEASE STOP HYDROXYZINE 5) INSTEAD PLEASE START LEXAPRO (ESCITALOPRAM) 5MG ONE TABLET EVERY NIGHT 6) Suggest [place] lifestyle principles: I) Aerobic exercise Ii) Mediterranean diet Iii) Increased socialization Iv) Sense of purpose/ [place] V) Reading, crossword puzzles, word jumbles, [place]o, Lumosity Cassius Jiménez MD [facility] documented in this encounter [facility] 05-24-2024 Note HNO ID: [id number] Author: COLIN BELLAMY MA Service: ? Author Type: Genetic Technologist Type: Progress Notes Filed: 06/22/2024 00:01 Note Text: Patient Full Name: Dorie Root The next questions are about your feelings regarding your social well-being. For each one, please share how often you feel that way. How often do you feel that you lack companionship? [x] 1 Hardly Ever [] 2 Some of the Time [] 3 often 2. How often do you feel left out? [] 1 Hardly Ever [x] 2 Some of the Time [] 3 Often 3. How often do you feel isolated from others? [] 1 Hardly Ever [x] 2 Some of the Time [] 3 Often Colin Bellamy MA [facility] 05-24-2024 History of Present illness Narrative Patient Full Name: Dorie Root The next questions are about your feelings regarding your social well-being. For each one, please share how often you feel that way. How often do you feel that you lack companionship? [x] 1 Hardly Ever [] 2 Some of the Time [] 3 often 2. How often do you feel left out? [] 1 Hardly Ever [x] 2 Some of the Time [] 3 Often 3. How often do you feel isolated from others? [] 1 Hardly Ever [x] 2 Some of the Time [] 3 Often Colin Bellamy MA [facility] Initial Consult Dorie Root is a 79 year old year old female who comes for Comprehensive Geriatric Assessment. Pt accompanied by: Caregivers involved in care: , Son (Chung) HPI: reports patient repeats and forgets things. Patient's son has noticed that patient is repeating posts and answering questions more than once on Facebook. Patient does not like to leave the house. Patient recently got hearing aids but does not like to wear them. Patient gets flustered and upset at times but can be calmed down. Son (Chung) is a salon shampoo assistant for [employer], lives in [place], and has 2 daughters. is trying to get son to help more with patient. Son scheduled to visit in June. reports son has a calming effect on the patient. Any Family History of dementia? Yes, mother Are you or your spouse a ? NO, Son (Chung) was [employer] Long-term Memory: Difficulty remembering distant events from the past like childhood, previous employment, wedding: YES, Behavioral/personality: Withdrawn/Depressed: NO Crying spells: NO, cries occasionally Anxious: YES History of aggression: NO History of irritability: NO Apathy:YES Recent changes in weight or appetite: NO Alcohol or Drug use: YES alcohol very rare and small amounts Smoking? NO Sleep: Do you snore loudly (louder than talking or loud enough to be heard through closed doors)? NO Do you often feel tired, fatigued, or sleepy during daytime? YES Has anyone observed you stop breathing during your sleep? YES Are you restless when you sleep at night? NO Do you have problems falling a sleep? YES 2-3 times a week Do you have problems staying a sleep? YES patient sleeps 2-3 hours then wakes up. Patient able to fall back asleep after reading. Psychosis: Hallucinations or delusions: NO Suicidal or homicidal ideations: NO Safety: Does pt know his/her address? YES What would you do if there was a fire? Run out of the house. How would you call for help? Seek help from neighbors. Contact neighbors and son. Does he/she know 911? YES Are there any firearms in the home? Ask next visit Social History: Primary language: Bangladeshi Marital Status: Living situation: Home w/ Spouse Socially engaged? 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 does not have a good relationship with 2 of his step children who are not in the patient's life. [id number] a few weeks ago Concerned about leaving house due to incontinence Caregiver [place] and Stress Are your feeling overwhelmed? NO Do you have concerns about your own health? NO Are you neglecting your own needs? NO Do you have financial concerns? NO Do your fear loss of employment? NO Do you have concerns about verbal/physical abuse? NO Do you feel that you are still capable of taking care of your relative? YES Are you willing to continue being in the caregiver role? YES B-ADLs: (I=independent,A=assistance,D=dep endent) ?Bathing: I, Dressing: I, Toileting: I, Transferring:I, Continence: I, Feeding: I, (Canas Index): 02/04 I-ADLs: Ability to use phone: I, Shopping: A, Cooking: A, Housekeeping: I, Laundry: I, Transportation:I, Medications: I, Handle Finances: D. 3 months ago patient stopped handling finances and now handles them ([place] scale): 03/08 PMHx: Home Meds: Current Outpatient Medications Medication Sig Dispense Refill topiramate (TOPAMAX) 50 mg tablet Take 1 tablet by mouth daily at bedtime. 30 tablet 2 BENEFIBER, GUAR GUM, ORAL Take by mouth. Coenzyme P15-Rhogfta E 100-5 mg-unit cap 2 gels Orally LUTEIN-ZEAXANTHIN ORAL Take by mouth. cyanocobalamin, vitamin B-12, (VITAMIN B-12) 5,000 mcg subl Dissolve under the tongue. fsh/flx/prim/cur/bor/om3,6,9 5 (OMEGA 3-6-9 FATTY ACIDS ORAL) Take by mouth. Ascorbic Acid (VITAMIN C) 1,000 mg tablet Take 1,000 mg by mouth once daily. lisinopril (PRINIVIL) 10 mg tablet Take 10 mg by mouth once daily. ALBUTEROL 90 MCG/ACTUATION AEROSOL INHALER as needed 0 0 Medication Review: - ANY HIGH RISK MEDICATIONS (STOPP CRITERIA): YES, Hydroxyzine ALLERGIES No Known Allergies Review of Systems Difficulty chew/swallow: No Pain: No Tremor: No Incontinence - During the last 3 months did you leak urine? NO - Type?: None Constipation/Change in bowel habits: YES, diarrhea and constipation, urge incontinence Vision Positive for vision impairment and wears glasses Follows with food and beverage intern:YES Hearing - Hearing aid : Hearing impairment, wears bilateral hearing aids, did not wear them to appointment. Concerned they might fall. Falls: .: Falls in the last 12 months: Positive: If + falls: Fell stepping off a curb, had to go to ED Physical Exam: 05/24/24 1222 BP: 167/79 BP Site: Left Arm BP Position: Sitting BP Cuff Size: Regular Adult Pulse: 74 Weight: 50.5 kg (111 lb 5.3 oz) General: Well-nourished, kempt Ambulatory: without assistance Mobility Aid: None Head: Normocephalic Eyes: conjunctiva/corneas normal, EOMI Ears: R TM - clear with good landmarks, nl light reflex, L TM - clear with good landmarks, nl light reflex Nose: clear Oropharynx: moist without lesions, teeth in good repair Neck: supple and no adenopathy Cardio: regular rate and rhythm Pulmonary: Lungs clear to auscultation bilaterally Extremities: Extremities normal. No deformities, edema, or skin discoloration. Musculoskeletal: Normal Gait Gait: Unsteadiness: YES Shuffling: NO Tremors: NO Slowness: YES Chandler Cognitive Exam (MOCA): 19/30 CDR Dementia Scale 1) Subjective Memory Loss: YES 2) Measurable Memory Loss: YES 3) IADLs: NO 4) BADLs: YES Driving Safely: No < 50% 6) Medications: No Level: 2.0 Depression Screening/Evaluation: GDS: 5/15 Assessment and Plan: I. Medical /Mental Status/Decision Making Capacity 1) Memory Impairment: MOCA/MMSE scored 19/30 with deficits in multiple areas Advised serologies for potentially reversible etiologies for memory impairment: Vitamin B12, TFTs, Vitamin D MRI brain with volumetric scans Of note , MRI Brain done December 2022 Discussed sleep study to evaluate - Will re-discuss next visit Driving Evaluation: Patient able to drive, but only goes to 3 places Finances Management: handles all finances starting 3 months ago Suggested [place] lifestyle principles: I) Aerobic exercise Ii) Mediterranean diet Iii) Increased socialization Iv) Sense of purpose/ [place] V) Reading, crossword puzzles, word jumbles, [place], Lumosity 2) Vitamin B12 Deficiency: Levels > 2,000 on 03/01/24 with MMA of 0.12 3) Seizure Disorder vs. Migraines?: No longer taking Topamax. 4) Vertigo/Dizziness: No longer taking Topamax 5) Auditory Impairment - patient recently started wearing hearing aids-Appreciated 6) Anxiety: On Hydroxyzine, which can cause memory impairment Advised stop Hydroxyzine and start Lexapro at night 7) Diarrhea and constipation: greater than 2 years, episodes of incontinence, which improved with and antibiotic, patient takes fiber regularly Advised to continue fiber and Senna regularly and only use Miralax when necessary 8) Asthma - Had Rheumatic Fever in high school, uses an albuterol inhaler Advanced Care Planning: - HCPOA: Plan on asking next visit REFERRALS AND RECOMMENDATIONS 1. Discussed the cognitive benefits of memory exercises and reviewed examples 2. Discussed the cognitive benefits of physical exercise and socialization By signing my name below, IEladia, attest that this documentation has been prepared under the direction and in the presence of Dr. Cassius Jiménez. Electronically signed, Nicola Fernandez May 24, 2024 3:45 PM Provider Attestation: Cassius Barrera MD personally performed the services described in this documentation. All medical record entries made by the scribe were at my direction and in my presence. I have reviewed the chart and discharge instructions (if applicable) and agree that the record reflects my personal performance and is accurate and complete. Electronically Signed: Cassius Jiménez MD, June 21, 2024 Cassius Jiménez MD [facility] documented in this encounter [facility] 05-24-2024 Note HNO ID: [id number] Author: CASSIUS JIMÉNEZ MD Service: ? Author Type: Physician Type: Progress Notes Filed: 06/22/2024 00:01 Note Text: [facility] Initial Consult Dorie Root is a 79 year old year old female who comes for Comprehensive Geriatric Assessment. Pt accompanied by: Caregivers involved in care: , Son (Chung) HPI: reports patient repeats and forgets things. Patient's son has noticed that patient is repeating posts and answering questions more than once on Facebook. Patient does not like to leave the house. Patient recently got hearing aids but does not like to wear them. Patient gets flustered and upset at times but can be calmed down. Son (Chung) is a salon shampoo assistant for [employer], lives in [place], and has 2 daughters. is trying to get son to help more with patient. Son scheduled to visit in June. reports son has a calming effect on the patient. Any Family History of dementia? Yes, mother Are you or your spouse a ? NO, Son (Chung) was [employer] Core Long-term Memory: Difficulty remembering distant events from the past like childhood, previous employment, wedding: YES, Behavioral/personality: Withdrawn/Depressed: NO Crying spells: NO, cries occasionally Anxious: YES History of aggression: NO History of irritability: NO Apathy:YES Recent changes in weight or appetite: NO Alcohol or Drug use: YES alcohol very rare and small amounts Smoking? NO Sleep: Do you snore loudly (louder than talking or loud enough to be heard through closed doors)? NO Do you often feel tired, fatigued, or sleepy during daytime? YES Has anyone observed you stop breathing during your sleep? YES Are you restless when you sleep at night? NO Do you have problems falling a sleep? YES 2-3 times a week Do you have problems staying a sleep? YES patient sleeps 2-3 hours then wakes up. Patient able to fall back asleep after reading. Psychosis: Hallucinations or delusions: NO Suicidal or homicidal ideations: NO Safety: Does pt know his/her address? YES What would you do if there was a fire? Run out of the house. How would you call for help? Seek help from neighbors. Contact neighbors and son. Does he/she know 911? YES Are there any firearms in the home? Ask next visit Social History: Primary language: Bangladeshi Marital Status: Living situation: Home w/ Spouse Socially engaged? 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 does not have a good relationship with 2 of his step children who are not in the patient's life. [id number] a few weeks ago Concerned about leaving house due to incontinence Caregiver [place] and Stress Are your feeling overwhelmed? NO Do you have concerns about your own health? NO Are you neglecting your own needs? NO Do you have financial concerns? NO Do your fear loss of employment? NO Do you have concerns about verbal/physical abuse? NO Do you feel that you are still capable of taking care of your relative? YES Are you willing to continue being in the caregiver role? YES B-ADLs: (I=independent,A=assistance,D=dep endent) ?Bathing: I, Dressing: I, Toileting: I, Transferring:I, Continence: I, Feeding: I, (Canas Index): 02/04 I-ADLs: Ability to use phone: I, Shopping: A, Cooking: A, Housekeeping: I, Laundry: I, Transportation:I, Medications: I, Handle Finances: D. 3 months ago patient stopped handling finances and now handles them ([place] scale): 03/08 PMHx: Home Meds: Current Outpatient Medications Medication Sig Dispense Refill topiramate (TOPAMAX) 50 mg tablet Take 1 tablet by mouth daily at bedtime. 30 tablet 2 BENEFIBER, GUAR GUM, ORAL Take by mouth. Coenzyme M58-Uoazqrj E 100-5 mg-unit cap 2 gels Orally LUTEIN-ZEAXANTHIN ORAL Take by mouth. cyanocobalamin, vitamin B-12, (VITAMIN B-12) 5,000 mcg subl Dissolve under the tongue. fsh/flx/prim/cur/bor/om3,6,9 5 (OMEGA 3-6-9 FATTY ACIDS ORAL) Take by mouth. Ascorbic Acid (VITAMIN C) 1,000 mg tablet Take 1,000 mg by mouth once daily. lisinopril (PRINIVIL) 10 mg tablet Take 10 mg by mouth once daily. ALBUTEROL 90 MCG/ACTUATION AEROSOL INHALER as needed 0 0 Medication Review: - ANY HIGH RISK MEDICATIONS (STOPP CRITERIA): YES, Hydroxyzine ALLERGIES No Known Allergies Review of Systems Difficulty chew/swallow: No Pain: No Tremor: No Incontinence - During the last 3 months did you leak urine? NO - Type?: None Constipation/Change in bowel habits: YES, diarrhea and constipation, urge (more content not included)... [facility] 04-22-2024 Telephone encounter Note called - concerned about progressive cognition issues - particularly memory. Recommended to see Geriatrics. Consult order placed. [facility] 04-22-2024 Miscellaneous Notes called - concerned about progressive cognition issues - particularly memory. Recommended to see Geriatrics. Consult order placed. documented in this encounter [facility] 04-14-2024 Telephone encounter Note Called patient to discuss her concerns. Explained to patient she is on a cancellation list for a sooner appointment. Explained that the covering providers for address emergent concerns/symptoms. Explained that the testing they are requesting the covering providers will defer to upon his return. Patient speaking in full sentences with clear speech. Patient oriented to place, time,season and day of the week.Denies any acute issues Denies weakness,headaches,dizziness,blur red vision.Patient pleasant. Patient states she and her are concerned with her memory loss and confusion at times that seems to progressively getting worse. She requested I call back to speak with her as he was not available at time of call and clinical will try to do so. Requested she share this information with her .(Our conversation) Routing to covering provider from last week and this week for advisement on this issue in the event they have anything to add. [facility] 04-14-2024 Miscellaneous Notes Called patient to discuss her concerns. Explained to patient she is on a cancellation list for a sooner appointment. Explained that the covering providers for Dr.Sese address emergent concerns/symptoms. Explained that the testing they are requesting the covering providers will defer to upon his return. Patient speaking in full sentences with clear speech. Patient oriented to place, time,season and day of the week.Denies any acute issues Denies weakness,headaches,dizziness,blur red vision.Patient pleasant. Patient states she and her are concerned with her memory loss and confusion at times that seems to progressively getting worse. She requested I call back to speak with her as he was not available at time of call and clinical will try to do so. Requested she share this information with her .(Our conversation) Routing to covering provider from last week and this week for advisement on this issue in the event they have anything to add. documented in this encounter [facility] 02-27-2024 Note HNO ID: [id number] Author: ISAAC MATSON MD Service: ? Author Type: Physician Type: Progress Notes Filed: 02/27/2024 14:27 Note Text: NEUROLOGY PROGRESS NOTE Dorie Root [...] has had therapy but to no avail. Patient states that her vertigo has come back. She also is complaining of memory issues. I see that they have been taking vitamin B12 but no recent serum levels have been ordered. Vitamin B12 and methylmalonic acid serum will also be ordered to check for vitamin B12 deficiency. There is no problem list on file for this patient. No past surgical history on file. Current Outpatient Medications on File Prior to Visit Medication Sig topiramate (TOPAMAX) 50 mg tablet Take 1 tablet by mouth daily at bedtime. BENEFIBER, GUAR GUM, ORAL Take by mouth. Coenzyme Z48-Nxsrtua E 100-5 mg-unit cap 2 gels Orally [...] AEROSOL INHALER as needed Current Facility-Administered Medications on File Prior to [...] HPI. All systems reviewed and are negative There were no vitals filed for this visit. PHYSICAL EXAMINATION: General appearance: well appearing, alert, in no acute distress Neck: Supple Neurological exam: MENTAL STATUS: Alert, oriented to person, place and time and Follows commands CRANIAL NERVES: PERRLA, EOM's intact, Face symmetric, and No dysarthria MOTOR STRENGTH: Moves all 4 extremities GAIT: steady IMPRESSION: 1. Forgetfulness 2. Dizziness PLAN: As above. Discussed about Topamax. They would want to hold for now until blood test results come back. Any problems or concerns to call me or primary care physician immediately or go straight to the emergency department ASSESSMENT/PLAN: 1. Forgetfulness - ICD9: 780.99, ICD10: R68.89 - VITAMIN B12 - METHYLMALONIC ACID Isaac Matson MD I spent a total of 30 minutes on the date of the service which included preparing to see the patient, [id number] patient care, completing clinical documentation, obtaining and/or reviewing separately obtained history, performing a medically appropriate examination, counseling and educating the patient/family/caregiver, and ordering medications, tests, or procedures. SIGNATURE: Isaac Matson MD PATIENT NAME: Dorie Root DATE: February 27, 2024 TIME: 2:24 PM [facility] 02-27-2024 History of Present illness Narrative NEUROLOGY PROGRESS [...] has had therapy but to no avail. Patient states that her vertigo has come back. She also is complaining of memory issues. I see that they have been taking vitamin B12 but no recent serum levels have been ordered. Vitamin B12 and methylmalonic acid serum will also be ordered to check for vitamin B12 deficiency. There is no problem list on file for this patient. No past surgical history on file. Current Outpatient Medications on File Prior to Visit Medication Sig topiramate (TOPAMAX) 50 mg tablet Take 1 tablet by mouth daily at bedtime. BENEFIBER, GUAR GUM, ORAL Take by mouth. Coenzyme O11-Yxouacn E 100-5 mg-unit cap 2 gels Orally [...] AEROSOL INHALER as needed Current Facility-Administered Medications on File Prior to [...] HPI. All systems reviewed and are negative There were no vitals filed for this visit. PHYSICAL EXAMINATION: General appearance: well appearing, alert, in no acute distress Neck: Supple Neurological exam: MENTAL STATUS: Alert, oriented to person, place and time and Follows commands CRANIAL NERVES: PERRLA, EOM's intact, Face symmetric, and No dysarthria MOTOR STRENGTH: Moves all 4 extremities GAIT: steady IMPRESSION: 1. Forgetfulness 2. Dizziness PLAN: As above. Discussed about Topamax. They would want to hold for now until blood test results come back. Any problems or concerns to call me or primary care physician immediately or go straight to the emergency department ASSESSMENT/PLAN: 1. Forgetfulness - ICD9: 780.99, ICD10: R68.89 - VITAMIN B12 - METHYLMALONIC ACID Isaac Matson MD I spent a total of 30 minutes on the date of the service which included preparing to see the patient, jooe-kf-[id number] patient care, completing clinical documentation, obtaining and/or reviewing separately obtained history, performing a medically appropriate examination, counseling and educating the patient/family/caregiver, and ordering medications, tests, or procedures. SIGNATURE: Isaac Matson MD PATIENT NAME: Dorie Root DATE: February 27, 2024 TIME: 2:24 PM documented in this encounter [facility] 12-15-2023 Hospital Discharge instructions Patient Education 12/15/2023 15:44:25 Diet for Irritable Bowel Syndrome Diet for Irritable Bowel Syndrome When you [...] What are tips for following this plan? Keep a food diary. This will help you identify foods that cause symptoms. Write down: ?What you eat and when you eat it. ?What symptoms you have. ?When symptoms occur in relation to your meals, such as pain in abdomen 2 hours after dinner. Eat your meals slowly and in a relaxed setting. Aim to eat 5 6 small meals per day. Do not skip meals. Drink enough fluid to keep your urine pale yellow. Ask your health care provider if you should take an tqrf-hyo-igtlqfz probiotic to help restore healthy bacteria in your gut (digestive tract). Probiotics are foods that contain good bacteria and yeasts. Your dietitian may have specific dietary recommendations for you based on your symptoms. Your dietitian may recommend that you: ?Avoid foods that cause symptoms. Talk with your dietitian about other ways to get the same nutrients that are in those problem foods. ?Avoid foods with gluten. Gluten is a protein that is found in rye, wheat, and barley. ?Eat more foods that contain soluble fiber. Examples of foods with high soluble fiber include oats, seeds, and certain fruits and vegetables. Take a fiber supplement if told by your dietitian. ?Reduce or avoid certain foods called FODMAPs. These are foods that contain sugars that are hard for some people to digest. Ask your health care provider which foods to avoid. What foods should I avoid? The following are some foods and drinks that may make your symptoms worse: Fatty foods, such as vincentian fries. Foods that contain gluten, such as pasta and cereal. Dairy products, such as milk, cheese, and ice cream. Spicy foods. Alcohol. Products with caffeine, such as coffee, tea, or chocolate. Carbonated drinks, such as soda. Foods that are high in FODMAPs. These include certain fruits and vegetables. Products with sweeteners such as honey, high [...] foods that are good sources of fiber: Berries, such as raspberries, strawberries, and blueberries. Tomatoes. Carrots. Brown rice. Oats. Seeds, such as jaylyn and pumpkin seeds. The items listed above may not be a complete list of recommended sources of fiber. Contact your dietitian for more options. Where to find more information International Foundation for Functional Gastrointestinal Disorders: aboutibs.org National [employer] of Diabetes and Digestive and Kidney Diseases: niddk.nih.gov Summary When you have irritable bowel syndrome (IBS), it is very important to follow the eating habits that are best for your condition. IBS may cause various symptoms, such as pain in the abdomen, constipation, or diarrhea. Choosing the right foods can help to ease the discomfort that comes from symptoms. Your health care provider or dietitian may recommend that you eat more foods that contain fiber. Keep a food diary. This will help you identify foods that cause symptoms. This information is not intended to replace advice given to you by your health care provider. Make sure you discuss any questions you have with your health care provider. Document Revised: 07/30/2022 Document Reviewed: 07/30/2022 [employer] Patient Education 2022 [employer] Follow Up Care 10/08/2023 11:03:48 With:Marry Mazariegos CNP Address: When:1 month [facility] 10-09-2023 History of Present illness Narrative NEUROLOGY PROGRESS [...] has had therapy but to no avail. Patient has stopped her Topamax. States that she has has been doing well dizziness has resolved. Comes in today for follow-up visit. There is no problem list on file for this patient. No past surgical history on file. Current Outpatient Medications on File Prior to Visit Medication Sig topiramate (TOPAMAX) 50 mg tablet Take 1 tablet by mouth daily at bedtime. BENEFIBER, GUAR GUM, ORAL Take by mouth. Coenzyme Y78-Byuqprn E 100-5 mg-unit cap 2 gels Orally [...] AEROSOL INHALER as needed Current Facility-Administered Medications on File Prior to [...] HPI. All systems reviewed and are negative 10/09/23 1404 BP: 153/68 Pulse: 80 PHYSICAL EXAMINATION: General appearance: well appearing, alert, in no acute distress Neck: Supple Neurological exam: MENTAL STATUS: Alert, oriented to person, place and time and Follows commands CRANIAL NERVES: PERRLA, EOM's intact, Face symmetric, No dysarthria, and Tongue protrudes midline MOTOR: No drift MOTOR STRENGTH: Upper and lower extremity 5/5 bilaterally SENSATION: Intact light touch COORDINATION: Finger-to- nose-finger intact bilaterally IMPRESSION: 1. Dizziness resolved PLAN: Any problems or concerns to call me or primary care physician immediately or go straight to the emergency department Return in about 1 year (around 10/09/2024). ASSESSMENT/PLAN: 1. Dizziness - ICD9: 780.4, ICD10: R42 Isaac Matson MD I spent a total of 20 minutes on the date of the service which included preparing to see the patient, mrsq-zj-[id number] patient care, completing clinical documentation, obtaining and/or reviewing separately obtained history, performing a medically appropriate examination, and counseling and educating the patient/family/caregiver. SIGNATURE: Isaac Matson MD PATIENT NAME: Dorie Root DATE: October 09, 2023 TIME: 2:27 PM documented in this encounter [facility] 10-08-2023 Hospital Discharge instructions Patient Education 10/08/2023 10:38:38 Diet for Irritable Bowel Syndrome Diet for Irritable Bowel Syndrome When you [...] What are tips for following this plan? Keep a food diary. This will help you identify foods that cause symptoms. Write down: ?What you eat and when you eat it. ?What symptoms you have. ?When symptoms occur in relation to your meals, such as pain in abdomen 2 hours after dinner. Eat your meals slowly and in a relaxed setting. Aim to eat 5 6 small meals per day. Do not skip meals. Drink enough fluid to keep your urine pale yellow. Ask your health care provider if you should take an grea-hod-bltvpsq probiotic to help restore healthy bacteria in your gut (digestive tract). Probiotics are foods that contain good bacteria and yeasts. Your dietitian may have specific dietary recommendations for you based on your symptoms. Your dietitian may recommend that you: ?Avoid foods that cause symptoms. Talk with your dietitian about other ways to get the same nutrients that are in those problem foods. ?Avoid foods with gluten. Gluten is a protein that is found in rye, wheat, and barley. ?Eat more foods that contain soluble fiber. Examples of foods with high soluble fiber include oats, seeds, and certain fruits and vegetables. Take a fiber supplement if told by your dietitian. ?Reduce or avoid certain foods called FODMAPs. These are foods that contain sugars that are hard for some people to digest. Ask your health care provider which foods to avoid. What foods should I avoid? The following are some foods and drinks that may make your symptoms worse: Fatty foods, such as vincentian fries. Foods that contain gluten, such as pasta and cereal. Dairy products, such as milk, cheese, and ice cream. Spicy foods. Alcohol. Products with caffeine, such as coffee, tea, or chocolate. Carbonated drinks, such as soda. Foods that are high in FODMAPs. These include certain fruits and vegetables. Products with sweeteners such as honey, high [...] foods that are good sources of fiber: Berries, such as raspberries, strawberries, and blueberries. Tomatoes. Carrots. Brown rice. Oats. Seeds, such as jaylyn and pumpkin seeds. The items listed above may not be a complete list of recommended sources of fiber. Contact your dietitian for more options. Where to find more information International Foundation for Functional Gastrointestinal Disorders: aboutibs.org National [employer] of Diabetes and Digestive and Kidney Diseases: niddk.nih.gov Summary When you have irritable bowel syndrome (IBS), it is very important to follow the eating habits that are best for your condition. IBS may cause various symptoms, such as pain in the abdomen, constipation, or diarrhea. Choosing the right foods can help to ease the discomfort that comes from symptoms. Your health care provider or dietitian may recommend that you eat more foods that contain fiber. Keep a food diary. This will help you identify foods that cause symptoms. This information is not intended to replace advice given to you by your health care provider. Make sure you discuss any questions you have with your health care provider. Document Revised: 07/30/2022 Document Reviewed: 07/30/2022 [employer] Patient Education 2022 [employer]. Follow Up Care 08/12/2023 09:30:06 With:Marry Mazariegos CNP Address: When:3 months [facility] 09-04-2023 Note [id number] [facility] 06-12-2023 History of Present illness Narrative [...] VITAMIN D3 ORAL) Take by mouth. Coenzyme E74-Exscigc E 100-5 mg-unit cap 2 gels Orally [...] which included preparing to see the patient, aoqr-ur-[id number] patient care, completing clinical documentation, obtaining and/or [...] study not recommended) documented in this encounter [facility] 06-11-2023 History of Present illness Narrative RADIOLOGY SERVICE PROGRESS NOTE SERVICE DATE: 06/11/2023 [...] Discontinued PROCEDURE TYPE: NM Stress: 12.9 mCi Wk31g-Orceygx was administered IV for Rest Imaging at 1235 by SYD. 33.0 mCi Vl99w-Zamctsw was administered IV for Stress Imaging at 1332 by SYD. PATIENT DISCHARGED TO: Ambulatory patient, left NM department area. A Diagnostic radioactive procedure has taken place, with no further precautions necessary other than routine body substance precautions. More information regarding radiation safety can be found using this link: [email or web address] [email or web address] SIGNATURE: PIEDAD Daley) PATIENT NAME: Dorie Root DATE: June 11, 2023 TIME: 1:34 PM PAGER/CONTACT #: documented in this encounter [facility] 05-21-2023 Miscellaneous Notes Medical records request has been sent. Fax confirmation was also scanned into pt chart Routing to PSS to assist. Dorie Root is calling Rachael Chaney MD today to request Dr. Chaney to request medical records from patient's visit at [facility] from 05.09[facility]23. Please call patient for any additional questions. Fax number: [phone] Patient has been identified by name and birthdate. Duration of symptoms: N/A Person calling: self Call patient at: at home [phone] (home) [phone] (work) [phone] (cell) Was an appointment scheduled: No Closing statement: Results or non-symptom based questions: Thank you for calling [facility], your call will be returned within the next business day. Thank you, Emerita Haque documented in this encounter [facility] 04-28-2023 History of Present illness Narrative Images from the original note were not included. [facility] Stepan Sharif Department of Cardiovascular Medicine SECTION OF REGIONAL CARDIOLOGY OUTPATIENT VISIT DATE April 28, 2023 OUTPATIENT VISIT TYPE NEW PRIMARY CARE PHYSICIAN: Srinivasan Lezama MD REFERRING PHYSICIAN: No ref. provider found HISTORY OF PRESENT ILLNESS: Dorie Root is a 77 year old female from [place], [place] here today self referral. Has h/o [...] is a 77 year old female from [place], [place] here today self referral. Has h/o [...] up This note was partially generated using [employer] voice recognition system, and there may be some incorrect words, spellings, and punctuation that were not noted in checking the note before saving. Yairkavon Chaney M.D., F.A.C.C CONTACT INFORMATION: Leonel Chaney M.D., Kahlil. 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 [address] CC: Srinivasan Lezama [address] [place] [address] documented in this encounter [facility] 01-16-2023 Miscellaneous Notes [...] IV DATA: Not applicable SIGNED BY: RT Grabiel(Maria Eugenia) Courtney Diaz) January 16, 2023 1:25 PM documented in this encounter [facility] 12-23-2022 History and physical note NEUROLOGY [...] BRAIN WO IVCON - US CAROTID ARTERIES [facility] 2. Dizziness and giddiness - ICD9: 780.4, ICD10: R42 - US CAROTID ARTERIES [facility] 3. Vertigo - ICD9: 780.4, ICD10: R42 - MRI BRAIN WO IVCON Isaac Matson MD Patient evaluated on the date of the service which included preparing to see the patient, [id number]-lw-gmjh patient care, completing clinical documentation, obtaining and/or reviewing separately obtained history, performing a medically appropriate examination, counseling and educating the patient/family/caregiver, and ordering medications, tests, or procedures. Signature Isaac Matson MD Staff, Neurology December 23, 2022 1:34 PM documented in this encounter [facility] 11-15-2022 Instructions Michela Blind - 11/15/2022 1:48 PM EDT [facility] For the body [...] experience a fall. documented in this encounter [facility] 11-15-2022 History of Present illness Narrative [facility] Laboratory Vestibular Test Battery Report Name: Dorie Root [facility]#: [id number] Date of Service: 11/15/2022 Date of : 1945 Age: [age] year old Referred by: Xander Hooker MD And is a patient of Juliano Sharma MD Referred for: Evaluation of suspected change in hearing, tinnitus, or balance. Referral documented: In an order in [facility] Pretest Instructions: All pretest instructions [...] right side of her head around the shinto region that occurs very rarely, about once [...] results and recommendations were explained to Dorie Connell Dk and she expressed understanding of the information. [...] vertical, oblique): normal Cover uncover test: normal Dxosu-rhepp-zushf test: normal Convergence test: normal NECK: Cervical [...] VESTIBULAR MEASURES: Videonystagmography Examination (VNG): CPT codes: 29932, 98084, 64735 Description of Procedure: objective assessment of peripheral [...] right-beating. Temporal profile: intermittent. Symptoms: none. Nystagmus Harrold-Hallpike right ear return to sit position: none Temporal profile: intermittent. Symptoms: none. Nystagmus Harrold-Hallpike left ear down position: 3 d/s left-beating. [...] Video Head Impulse Test (VHIT): CPT code: 60695 Description of Procedure: assessment of the angular [...] of corrective saccades. Rotational Chair: CPT code 53031 Description of Procedure: objective assessment of peripheral [...] regarding this information, please contact me at [phone]. MASOOD Lorenzo Doctor of Audiology (AuD) Side Stapler This appointment was conducted under the direct supervision of Lauren Mccauley, PhD CCC-A I verify that I have reviewed the history, test results, and interpretation for this patient. Lauren Mccauley, PhD CCC-A Vestibular Stroke Belt Sander Operator Director, Vestibular and Balance Disorders Program [facility] copy to: Juliano Sharma MD [address] [place] [address] documented in this encounter [facility] Evaluation + Plan note Future Appointments Appointment Date:07/29/2023 10:40:00 AM Scheduled Provider: [facility] Appoint[facility] Type:FM Nurse Visit Appointment Date:08/12/2023 01:20:00 PM Scheduled Provider:Srinivasan Lezama MD [facility] Appointment Type: Open Appointment Date:07/23/2024 11:00:00 AM Scheduled Provider: [facility] Type: Medicare Wellness Subsequent [facility] Evaluation + Plan note Future Appointments Appointment Date:07/31/2023 02:00:00 PM Scheduled Provider: [facility] Appointment Type: Nurse Visit Appointment Date:08/12/2023 01:20:00 PM Scheduled Provider:Srinivasan Lezama MD [facility] Appointment Type: Open Appointment Date:07/23/2024 11:00:00 AM Scheduled Provider: [facility] Appointment Type: Medicare Wellness Subsequent [facility] Evaluation + Plan note Future Appointments Appointment Date:10/21/2023 10:30:00 AM Scheduled Provider:Srinivasan Lezama MD [facility] Type: Open Appointment Date:12/08/2023 12:20:00 PM Scheduled Provider:Marry Mazariegos CNP Location:[facility] Appointment Type:[facility] Follow Up Appointment Date:07/23/2024 11:00:00 AM Scheduled Provider: [facility] Type: Medicare Wellness Subsequent Future Scheduled TestsCBC w/ Auto Diff 08/11/23CT Chest w/o Contrast 11/06/23 [facility] Evaluation + Plan note Future Appointments Appointment Date:12/08/2023 12:20:00 PM Scheduled Provider:Marry Mazariegos CNP Location:[facility] Appointment Type:BAD Follow Up Appointment Date:01/20/2024 01:00:00 PM Scheduled Provider:Srinivasan Lezama MD Location:[facility] Appointment Type: Open Appointment Date:07/23/2024 11:00:00 AM Scheduled Provider: Location:[facility] Appointment Type: Medicare Wellness Subsequent Future Scheduled TestsCBC w/ Auto Diff 08/11/23 [facility] Evaluation + Plan note Future Appointments Appointment Date:01/13/2024 01:40:00 PM Scheduled Provider:Marry Mazariegos CNP Location:[facility] Appointment Type:BAD Follow Up Appointment Date:01/20/2024 01:00:00 PM Scheduled Provider:Srinivasan Lezama MD Location:[facility] Appointment Type: Open Appointment Date:07/05/2024 11:00:00 AM Scheduled Provider: Location:[facility] Appointment Type: Medicare Wellness Subsequent Future Scheduled TestsCBC w/ Auto Diff 08/11/23CT Chest w/o Contrast 11/12/24 [facility] Evaluation + Plan note Future Appointments Appointment Date:02/18/2024 02:00:00 PM Scheduled Provider:Dung Matthews MD Location:[facility] Appointment Type:[facility] Follow Up Appointment Date:04/20/2024 02:15:00 PM Scheduled Provider:Srinivasan Lezama MD Location:[facility] Appointment Type: Open Appointment Date:07/05/2024 11:00:00 AM Scheduled Provider: Location:[facility] Appointment Type: Medicare Wellness Subsequent Future Scheduled TestsCBC w/ Auto Diff 08/11/23CT Chest w/o Contrast 11/12/24 [facility] Evaluation + Plan note Future Appointments Appointment Date:02/18/2024 02:00:00 PM Scheduled Provider:Dung Matthews MD Location:[facility] Appointment Type:[facility] Follow Up Appointment Date:04/20/2024 02:15:00 PM Scheduled Provider:Srinivasan Lezama MD Location:[facility] Appointment Type: Open Appointment Date:07/05/2024 11:00:00 AM Scheduled Provider: Location:[facility] Appointment Type:FM Medicare Wellness Subsequent Diagnostic Tests PendingCeliac Disease Comprehensive 02/04/24 Future Scheduled TestsCBC w/ Auto Diff 08/11/23CT Chest w/o Contrast 11/12/24 [facility] Evaluation + Plan note Future Appointments Appointment Date:02/18/2024 02:00:00 PM Scheduled Provider:Dung Matthews MD Location:[facility] Appointment Type:BAD Follow Up Appointment Date:04/20/2024 02:15:00 PM Scheduled Provider:Srinivasan Lezama MD Location:[facility] Appointment Type: Open Appointment Date:07/05/2024 11:00:00 AM Scheduled Provider: Location:[facility] Appointment Type:FM Medicare Wellness Subsequent Diagnostic Tests PendingCalprotectin, Fecal 02/04/24Pancreatic Elastase, Fecal 02/04/24O & P Exam, Routine 02/04/24Fecal WBC Lactoferrin 02/04/24Enteric Panel by PCR 02/04/24 Future Scheduled TestsCBC w/ Auto Diff 08/11/23CT Chest w/o Contrast 11/12/24 [facility] Evaluation + Plan note Future Appointments Appointment Date:04/20/2024 02:15:00 PM Scheduled Provider:Srinivasan Lezama MD Location:[facility] Appointment Type: Open Appointment Date:05/19/2024 12:45:00 PM Scheduled Provider:Dung Matthews MD Location:[facility] Appointment Type:[facility] Follow Up Appointment Date:07/05/2024 11:00:00 AM Scheduled Provider: Location:[facility] Appointment Type:FM Medicare Wellness Subsequent Future Scheduled TestsCBC w/ Auto Diff 08/11/23CT Chest w/o Contrast 11/12/24 [facility] Evaluation + Plan note Future Appointments Appointment Date:08/11/2024 02:15:00 PM Scheduled Provider:Dung Matthews MD Location:[facility] Appointment Type:BAD Follow Up Appointment Date:01/20/2025 01:15:00 PM Scheduled Provider:Srinivasan Lezama MD Location:[facility] Appointment Type: Open Appointment Date:07/25/2025 01:00:00 PM Scheduled Provider: Location:[facility] Appointment Type: Medicare Wellness Subsequent Future Scheduled TestsCBC w/ Auto Diff 08/11/23CT Chest w/o Contrast 07/22/24CT Chest w/o Contrast 11/12/24 [facility] Evaluation + Plan note Future Appointments Appointment Date:07/05/2024 10:45:00 AM Scheduled Provider:Srinivasan Lezama MD Location:[facility] Appointment Type: Open Appointment Date:07/05/2024 11:00:00 AM Scheduled Provider: Location:[facility] Appointment Type: Medicare Wellness Subsequent Appointment Date:08/11/2024 02:15:00 PM Scheduled Provider:Dung Matthews MD Location:[facility] Appointment Type:[facility] Follow Up Future Scheduled TestsCBC w/ Auto Diff 08/11/23CT Chest w/o Contrast 11/12/24 [facility] Evaluation + Plan note Future Appointments Appointment Date:01/20/2025 01:15:00 PM Scheduled Provider:Srinivasan Lezama MD Location:[facility] Appointment Type: Open Appointment Date:07/25/2025 01:00:00 PM Scheduled Provider: Location:[facility] Appointment Type: Medicare Wellness Subsequent Future Scheduled TestsCBC w/ Auto Diff 08/11/23CT Chest w/o Contrast 07/22/24CT Chest w/o Contrast 11/08/24CT Chest w/o Contrast 11/12/24 [facility] Evaluation + Plan note Future Appointments Appointment Date:01/20/2025 01:20:00 PM Scheduled Provider:Srinivasan Lezama MD Location:[facility] Appointment Type: Open Appointment Date:07/25/2025 01:00:00 PM Scheduled Provider: Location:[facility] Appointment Type: Medicare Wellness Subsequent Future Scheduled TestsCT Chest w/o Contrast 07/22/24 [facility] Evaluation + Plan note Future Appointments Appointment Date:07/25/2025 01:00:00 PM Scheduled Provider: Location:[facility] Appointment Type: Medicare Wellness Subsequent Appointment Date:07/25/2025 01:40:00 PM Scheduled Provider:Srinivasan Lezama MD Location:[facility] Appointment Type: Open Diagnostic Tests PendingCBC w/ Auto Diff 01/27/25Comprehensive Metabolic Panel 01/27/25Lipid Panel 01/27/25 Future Scheduled TestsCT Chest w/o Contrast 07/22/24 [facility] Evaluation note Diagnosis Dizziness- Primary Dizziness and giddiness [facility] [place] Diagnosis Dizziness- Primary Dizziness and giddiness Head pains [facility] [place] [facility] Diagnosis Ataxia following cerebral infarction- Primary Ataxia, late effect of cerebrovascular disease Dizziness and giddiness Vertigo Dizziness and giddiness [facility] [place] [facility] Diagnosis Chest pain, unspecified type- Primary SOB (shortness of breath) Shortness of breath documented in this [facility] [place] [facility]* Diagnosis Dizziness and giddiness- Primary Vertigo Dizziness and giddiness [facility] [place] [facility] Diagnosis Dizziness- Primary Dizziness and giddiness [facility] [place] [facility]* Diagnosis Forgetfulness- Primary Other general symptoms [facility] [place] [facility] Diagnosis Complaints of memory disturbance- Primary Memory loss Forgetfulness Other general symptoms documented in this encounter [facility] [place] [facility]* Diagnosis Cognitive changes- Primary Other signs and symptoms involving cognition documented in this encounter [facility] [place] [facility]* Diagnosis Chest pain, unspecified type documented in this encounter 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 [place] [facility]* Diagnosis Headache disorder- Primary Headache documented in this encounter [facility] [place] [facility]* Diagnosis Memory impairment Memory loss [facility] [place] [facility] Diagnosis Hypertension, unspecified type- Primary Prescription refill Issue of repeat prescriptions SOB (shortness of breath) Shortness of breath H/O chest pain Personal history of other specified diseases [facility] [place] [facility] Diagnosis Memory impairment- Primary Memory loss Vitamin B12 deficiency Other B-complex deficiencies Sensorineural hearing loss (SNHL), unspecified laterality Anxiety and depression Dysthymic disorder Vitamin D deficiency Unspecified vitamin D deficiency Memory impairment Memory loss documented in this encounter [facility] [place] [facility]* Diagnosis Memory impairment- Primary Memory loss Vitamin B12 deficiency Other B-complex deficiencies Dizziness Dizziness and giddiness Hearing loss, unspecified hearing loss type, unspecified laterality Anxiety Anxiety state, unspecified documented in this encounter [facility] [place] [facility]* Diagnosis Hypertension, unspecified type- Primary Pulmonary hypertension (HCC) Other chronic pulmonary heart diseases Tricuspid valve insufficiency, unspecified etiology [facility] [place] [facility] Diagnosis Memory impairment Memory loss [facility] [place] [facility]* Diagnosis Headache disorder- Primary Headache documented in this encounter [facility] [place] [facility]* Diagnosis Strep throat exposure- Primary Pharyngitis, unspecified etiology Nasal congestion Other diseases of nasal cavity and sinuses [facility] [place] [facility] Diagnosis Tricuspid valve insufficiency, unspecified etiology- Primary Hypertension, unspecified type Pulmonary hypertension (HCC) Other chronic pulmonary heart diseases Vertigo Dizziness and giddiness documented in this encounter [facility] note* Diagnosis Memory impairment- Primary Memory loss B12 deficiency Other B-complex deficiencies Seizure disorder (HCC) Unspecified epilepsy without mention of intractable epilepsy Dizziness Dizziness and giddiness Hearing loss, unspecified hearing loss type, unspecified laterality Anxiety Anxiety state, unspecified DENZEL (obstructive sleep apnea) Obstructive sleep apnea (adult) (pediatric) Dysphagia, unspecified type Orthostatic dizziness documented in this encounter [facility] course Narrative No data available for this section [facility] Discharge instructions No data available for this section [facility] No data available for this section [facility] (narrative)* Outpatient Procedure (Routine) - Authorized Specialty Diagnoses / Procedures Referred By Linda villa Referred To [facility] Diagnoses Ataxia following cerebral infarction Dizziness and giddiness Procedures US CAROTID ARTERIES [facility] VAS LAB DUPLEX SCAN EXTRACRANIAL [place] [address] [place] [address] [facility] [place] [address] [place] [address] Referral ID Status Reason Start Date Expiration Date Visits Requested Visits Authorized [id number] Authorized Auto-Generat ed Referral 12/23/2022 12/23/2023 1 1 * MRI/CT (Routine) - Authorized Specialty Diagnoses / Procedures Referred By Linda villa Referred To Contact MR IMAGING Diagnoses Ataxia following cerebral infarction Vertigo Procedures MRI BRAIN WO IVCON MRI BRAIN BRAIN STEM W/O CONTRAST [place]ERIAL Isaac [place]son [place] [id number] [place] [address] Mr Imaging Referral ID Status Reason Start Date Expiration Date Visits Requested Visits Authorized [id number] Authorized Auto-Generat ed Referral 12/23/2022 01/22/2024 1 1 [facility] (narrative)* Diagnostic Procedure Only (Routine) - Authorized Specialty Diagnoses / Procedures Referred By Linda villa Referred To Contact [facility] Diagnoses Chest pain, unspecified type Procedures NM CARDIAC PERF STRESS/PHARM MYOCARDIAL SPECT MULTIPLE STUDIES Rachael Chaney MD [address] [place] [id number] [facility] [address] [place] [address] Referral ID Status Reason Start Date Expiration Date Visits Requested Visits Authorized [id number] Authorized Auto-Generat ed Referral 04/28/2023 05/27/2024 1 1 * Outpatient Procedure (Routine) - Authorized Specialty Diagnoses / Procedures Referred By Linda villa Referred To [facility] Diagnoses Chest pain, unspecified type Procedures ECHO ECHO TTHRC R-T 2D W/WOM-MODE COMPL SPEC&COLR D Rachael Chaney MD [address] [place] [address] [facility] [address] [place] [address] Referral ID Status Reason Start Date Expiration Date Visits Requested Visits Authorized [id number] Authorized Auto-Generat ed Referral 04/28/2023 04/27/2024 1 1 * Outpatient Procedure (Routine) - Closed Specialty Diagnoses / Procedures Referred By Contac t Referred To Contact [facility] Diagnoses Chest pain, unspecified type Procedures ECG COMPLETE ECG ROUTINE ECG W/LEAST 12 LDS W/I&[place] [address] [place] [address] [address] Referral ID Status Reason Start Date Expiration Date V isits Requested Visits Authorized [id number] Closed Auto-Generate d Referral 04/28/2023 04/27/2024 1 1 [facility] (narrative)* Diagnostic Procedure Only (Routine) - Closed Specialty Diagnoses / Procedures Referred By Linda t Referred To Contact [facility] Diagnoses Chest pain, unspecified type Procedures NM CARDIAC PERF STRESS/PHARM MYOCARDIAL SPECT [place] [address] [place] [address] [facility] [address] [place] [address] Referral ID Status Reason Start Date Expiration Date V isits Requested Visits Authorized [id number] Closed Auto-Generate d Referral 04/28/2023 05/27/2024 1 1 [facility] for [facility] (narrative)* Outpatient Procedure (Routine) - New Request Specialty Diagnoses / Procedures [facility] To Contact [facility] Diagnoses Hypertension, unspecified type Procedures ECG COMPLETE ECG ROUTINE ECG W/LEAST 12 LDS W/I&[place] [address] [place] [address] [facility] [address] [place] [address] Referral ID Status Reason Start Date Expiration Date Visits Requested Visits Authorized [id number] New Request Auto-Generat ed Referral 06/21/2025 1 1 [facility] for visit Narrative* Diagnostic Procedure Only (Routine) - Closed Specialty Diagnoses / Procedures Referred By Contac t Referred To Contact [facility] Diagnoses Chest pain, unspecified type Procedures NM CARDIAC PERF STRESS/PHARM MYOCARDIAL SPECT [place] [address] [place] [address] [facility] [address] [place] [address] Referral ID Status Reason Start Date Expiration Date V isits Requested Visits Authorized [id number] Closed Auto-Generate d Referral 04/28/2023 05/27/2024 1 1 [facility] Summary Purpose Family History No Family [...] for this section No Family History Records FoundNo Family History Records FoundNo Family History Records FoundNo Family History Records FoundNo Family History Records FoundNo Family History Records FoundNo Family History Records Found No data available for this section No Family History Records FoundNo Family History Records Found No data available for this section No Family History Records FoundNo Family History Records FoundNo Family History Records Found No data available for this section No Family History Records Found No data available for this section No data available for this section No Family History Records Found No data available for this section No data available for this section No Family History Records FoundNo Family History Records FoundNo Family History Records FoundNo Family History Records FoundNo Family History Records FoundNo Family History Records FoundNo Family History Records Found Advance Directives No [...] Diagnoses Dizziness Procedures CONSULT TO NEUROLOGY OFFICE/OUTPATIENT [facility] 60-74 MINUTES Xander Hooker MD [address] [place], [place] [id number] Referral ID Status Reason Start Date Expiration Date Visits Requested Visits Authorized [id number] Pending Review PCP Requested Referral 11/20/2022 11/20/2023 1 1 Specialty Diagnoses / Procedures Referred By Contac t Referred To Contact Diagnoses Complaints of memory disturbance Forgetfulness Procedures NEUROPSYCHOLOGICAL TESTING CONSULT NEUROBEHAVIORAL STATUS XM PHYS/QHP 1ST HOUR NEUROPSYCHOLOGICAL TST EVAL PHYS/QHP 1ST HOUR NEUROPSYCHOLOGICAL TST EVAL PHYS/QHP EA ADDL HR PSYCL/NRPSYCL TST TECH 2+ TST 1ST 30 MIN PSYCL/NRPSYCL TST TECH 2+ TST EA ADDL 30 [place] [address] [place] [address] Referral ID Status Reason Start Date Expiration Date Visits Requested Visits Authorized [id number] Ref Not Required PCP Requested Referral 04/14/2024 07/13/2024 1 3 Specialty Diagnoses / Procedures Referred By Contac t Referred To Contact Gerontology Diagnoses Cognitive changes Procedures CONSULT TO GERIATRICS OFFICE/OUTPATIENT [facility] 60 MINUTES Xander Hooker MD [address] [place] [address] [address] [place] [address] Referral ID Status Reason Start Date Expiration Date Visits Requested Visits Authorized [id number] Authorized PCP Requested Referral 04/22/2024 04/22/2025 1 1 Specialty Diagnoses / Procedures Referred By Contac t Referred To Contact MR IMAGING Diagnoses Memory impairment Procedures MRI BRAIN WO IVCON MRI BRAIN BRAIN STEM W/O CONTRAST MATERIAL Cassius Jiménez MD [address] [place] [address] [facility] [place] [address] Referral ID Status Reason Start Date Expiration Date V isits Requested Visits Authorized [id number] Closed Auto-Generate d Referral 05/24/2024 06/23/2025 1 1 Specialty Diagnoses / Procedures Referred By Contac t Referred To Contact MR IMAGING Diagnoses Memory impairment Procedures MRI 3D POST PROCESSING 3D RENDERING W/INTERP&POSTPROC DIFF WORK STATION Cassius Jiménez MD [address] [place] [address] Mr [facility] [place] [address] Referral ID Status Reason Start Date Expiration Date V isits Requested Visits Authorized [id number] Closed Auto-Generate d Referral 05/24/2024 06/23/2025 1 1 Additional Source Comments INFORMATION SOURCE (unrecogn ized section and content) DATE CREATED AUTHOR 11/18/2021 [facility] DATE CREATED AUTHOR AUTHOR'S ORGANIZ ATION 02/08/2023 [facility] DATE CREATED AUTHOR AUTHOR'S ORGANIZ ATION 02/06/2024 [facility] DATE CREATED AUTHOR AUTHOR'S ORGANIZ ATION 02/08/2024 [facility] DATE CREATED AUTHOR AUTHOR'S ORGANIZ ATION 02/13/2024 [facility] DATE CREATED AUTHOR AUTHOR'S ORGANIZ ATION 06/21/2024 [facility] DATE CREATED AUTHOR AUTHOR'S ORGANIZ ATION 07/29/2024 [facility] DATE CREATED AUTHOR AUTHOR'S ORGANIZ ATION 08/05/2024 [facility] DATE CREATED AUTHOR AUTHOR'S ORGANIZ ATION 08/24/2024 [facility] DATE CREATED AUTHOR AUTHOR'S ORGANIZ ATION 11/16/2024 [facility] DATE CREATED AUTHOR AUTHOR'S ORGANIZ ATION 01/29/2025 [facility] DATE CREATED AUTHOR AUTHOR'S ORGANIZ ATION 01/29/2025 [facility] DATE CREATED AUTHOR AUTHOR'S ORGANIZ ATION 01/30/2025 [facility] Source Comments (unrecognize d section and content) In the event this informatio n is protected by the Federal Confidentiality of Alcohol and Drug Abuse Patient Records regulations: The Federal rules restrict any use of the information to criminally investigate or prosecute any alcohol or drug abuse patient.[facility] the event this information is protected by the Federal Confidentiality of Alcohol and Drug Abuse Patient Records regulations: The Federal rules restrict any use of the information to criminally investigate or prosecute any alcohol or drug abuse patient.[facility] HospitalIn the event this information is protected by the Federal Confidentiality of Alcohol and Drug Abuse Patient Records regulations: The Federal rules restrict any use of the information to criminally investigate or prosecute any alcohol or drug abuse patient.[facility] Hospital[facility] the event this information is protected by the Federal Confidentiality of Alcohol and Drug Abuse Patient Records regulations: The Federal rules restrict any use of the information to criminally investigate or prosecute any alcohol or drug abuse patient.[facility] HospitalIn the event this information is protected by the Federal Confidentiality of Alcohol and Drug Abuse Patient Records regulations: The Federal rules restrict any use of the information to criminally investigate or prosecute any alcohol or drug abuse patient.[facility] HospitalIn the event this information is protected by the Federal Confidentiality of Alcohol and Drug Abuse Patient Records regulations: The Federal rules restrict any use of the information to criminally investigate or prosecute any alcohol or drug abuse patient.[facility] Hospital[facility] the event this information is protected by the Federal Confidentiality of Alcohol and Drug Abuse Patient Records regulations: The Federal rules restrict any use of the information to criminally investigate or prosecute any alcohol or drug abuse patient.[facility] Hospital[facility] the event this information is protected by the Federal Confidentiality of Alcohol and Drug Abuse Patient Records regulations: The Federal rules restrict any use of the information to criminally investigate or prosecute any alcohol or drug abuse patient.[facility] HospitalIn the event this information is protected by the Federal Confidentiality of Alcohol and Drug Abuse Patient Records regulations: The Federal rules restrict any use of the information to criminally investigate or prosecute any alcohol or drug abuse patient.[facility] HospitalIn the event this information is protected by the Federal Confidentiality of Alcohol and Drug Abuse Patient Records regulations: The Federal rules restrict any use of the information to criminally investigate or prosecute any alcohol or drug abuse patient.[facility] HospitalIn the event this information is protected by the Federal Confidentiality of Alcohol and Drug Abuse Patient Records regulations: The Federal rules restrict any use of the information to criminally investigate or prosecute any alcohol or drug abuse patient.[facility] HospitalIn the event this information is protected by the Federal Confidentiality of Alcohol and Drug Abuse Patient Records regulations: The Federal rules restrict any use of the information to criminally investigate or prosecute any alcohol or drug abuse patient.[facility] HospitalIn the event this information is protected by the Federal Confidentiality of Alcohol and Drug Abuse Patient Records regulations: The Federal rules restrict any use of the information to criminally investigate or prosecute any alcohol or drug abuse patient.[facility] HospitalIn the event this information is protected by the Federal Confidentiality of Alcohol and Drug Abuse Patient Records regulations: The Federal rules restrict any use of the information to criminally investigate or prosecute any alcohol or drug abuse patient.[facility] HospitalIn the event this information is protected by the Federal Confidentiality of Alcohol and Drug Abuse Patient Records regulations: The Federal rules restrict any use of the information to criminally investigate or prosecute any alcohol or drug abuse patient.[facility] HospitalIn the event this information is protected by the Federal Confidentiality of Alcohol and Drug Abuse Patient Records regulations: The Federal rules restrict any use of the information to criminally investigate or prosecute any alcohol or drug abuse patient.[facility] HospitalIn the event this information is protected by the Federal Confidentiality of Alcohol and Drug Abuse Patient Records regulations: The Federal rules restrict any use of the information to criminally investigate or prosecute any alcohol or drug abuse patient.[facility] HospitalIn the event this information is protected by the Federal Confidentiality of Alcohol and Drug Abuse Patient Records regulations: The Federal rules restrict any use of the information to criminally investigate or prosecute any alcohol or drug abuse patient.[facility] HospitalIn the event this information is protected by the Federal Confidentiality of Alcohol and Drug Abuse Patient Records regulations: The Federal rules restrict any use of the information to criminally investigate or prosecute any alcohol or drug abuse patient.[facility] HospitalIn the event this information is protected by the Federal Confidentiality of Alcohol and Drug Abuse Patient Records regulations: The Federal rules restrict any use of the information to criminally investigate or prosecute any alcohol or drug abuse patient.[facility] HospitalIn the event this information is protected by the Federal Confidentiality of Alcohol and Drug Abuse Patient Records regulations: The Federal rules restrict any use of the information to criminally investigate or prosecute any alcohol or drug abuse patient.[facility] HospitalIn the event this information is protected by the Federal Confidentiality of Alcohol and Drug Abuse Patient Records regulations: The Federal rules restrict any use of the information to criminally investigate or prosecute any alcohol or drug abuse patient.[facility] HospitalIn the event this information is protected by the Federal Confidentiality of Alcohol and Drug Abuse Patient Records regulations: The Federal rules restrict any use of the information to criminally investigate or prosecute any alcohol or drug abuse patient.[facility] HospitalIn the event this information is protected by the Federal Confidentiality of Alcohol and Drug Abuse Patient Records regulations: The Federal rules restrict any use of the information to criminally investigate or prosecute any alcohol or drug abuse patient.[facility] HospitalIn the event this information is protected by the Federal Confidentiality of Alcohol and Drug Abuse Patient Records regulations: The Federal rules restrict any use of the information to criminally investigate or prosecute any alcohol or drug abuse patient.[facility] HospitalIn the event this information is protected by the Federal Confidentiality of Alcohol and Drug Abuse Patient Records regulations: The Federal rules restrict any use of the information to criminally investigate or prosecute any alcohol or drug abuse patient.[facility] HospitalIn the event this information is protected by the Federal Confidentiality of Alcohol and Drug Abuse Patient Records regulations: The Federal rules restrict any use of the information to criminally investigate or prosecute any alcohol or drug abuse patient.[facility] Teams (unrecognized sec tion and content) Cotton Bag 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 Relationship Specialty Start Date End Date Juliano Sharma MD [address] [place] [id number] PCP - General 06/02/06 Cotton Bag Sewer Relationship Specialty Start Date End Date Juliano Sharma MD [address] [place] [id number] PCP - General 06/02/06 Cotton Bag Sewer Relationship Specialty Start Date End Date Juliano Sharma MD [address] [place] [id number] PCP - General 06/02/06 Cotton Bag Sewer Relationship Specialty Start Date End Date Srinivasan Lezama MD [facility] [place] [id number] PCP - General Family Medicine 03/24/23 Cotton Bag Sewer Relationship Specialty Start Date End Date Srinivasan Lezama MD [facility] [place] [id number] PCP - General Family Medicine 03/24/23 Cotton Bag Sewer Relationship Specialty Start Date End Date Juliano Sharma MD [facility] [place] [id number] PCP - General 06/02/06 03/23/23 Cotton Bag Sewer Relationship Specialty Start Date End Date Srinivasan Lezama MD [address] [place], [place] [id number] PCP - General Family Medicine 03/24/23 Cotton Bag Sewer Relationship Specialty Start Date End Date Srinivasan Lezama MD [address] [place] [address] PCP - General Family Medicine 03/24/23 Cotton Bag Sewer Relationship Specialty Start Date End Date Srinivasan Lezama MD [address] [place] [address] PCP - General Family Medicine 03/24/23 Cotton Bag Sewer Relationship Specialty Start Date End Date Srinivasan Lezama MD [address] [place] [address] PCP - General Family Medicine 03/24/23 Cotton Bag Sewer Relationship Specialty Start Date End Date Srinivasan Lezama MD [address] [place] [address] PCP - General Family Medicine 03/24/23 Cotton Bag Sewer Relationship Specialty Start Date End Date Srinivasan Lezama MD [address] [place] [address] PCP - General Family Medicine 03/24/23 Cotton Bag Sewer Relationship Specialty Start Date End Date Srinivasan Lezama MD [address] [place] [address] PCP - General Family Medicine 03/24/23 Cotton Bag Sewer Relationship Specialty Start Date End Date Srinivasan Lezama MD [address] [place] [address] PCP - General Family Medicine 03/24/23 Cotton Bag Sewer Relationship Specialty Start Date End Date Srinivasan Lezama MD [address] [place] [address] PCP - [facility] Medicine 03/24/23 Cotton Bag Sewer Relationship Specialty Start Date End Date Srinivasan Lezama MD [address] [facility] [place] [address] PCP - [facility] Medicine 03/24/23 Cotton Bag Sewer Relationship Specialty Start Date End Date Srinivasan Lezama MD [address] [facility] [place] [address] PCP - [facility] Medicine 03/24/23 Cotton Bag Sewer Relationship Specialty Start Date End Date Srinivasan Lezama MD [address] [place], [place] [id number] PCP - [facility] Medicine 03/24/23 Cotton Bag Sewer Relationship Specialty Start Date End Date Srinivasan Lezama MD PCP - [facility] Medicine 03/26/23 Cotton Bag Sewer Relationship Specialty Start Date End Date Srinivasan Lezama MD [address] [facility], [place] [id number] PCP - General Family Medicine 03/24/23 Cotton Bag Sewer Relationship Specialty Start Date End Date Srinivasan Lezama MD [address] [facility], [place] [phone] PCP - General Family Medicine 03/24/23 Reason for Visit (unrecogniz ed section and content) Reason Comments Dizziness Reason Comments New Patient Evaluation Reason Comments CARD New Patient Consult Reason Comments Request Outside Medical Records Reason Comments Established Patient Specialty Diagnoses / Procedures Referred By Contac t Referred To Contact MR IMAGING Diagnoses Ataxia following cerebral infarction Vertigo Procedures MRI BRAIN WO IVCON MRI BRAIN BRAIN STEM W/[place] [address] [place] [address] [place] [address] Referral ID Status Reason Start Date Expiration Date V isits Requested Visits Authorized [id number] Closed Auto-Generate d Referral 12/23/2022 01/22/2024 1 1 Reason Comments Memory Loss Reason Comments Memory Loss Reason Comments Radiology NM Specialty Diagnoses / Procedures Referred By Contac t Referred To Contact MOLECULAR & FUNCTIONAL IMAGING Diagnoses Chest pain, unspecified type Procedures NM CARDIAC PERF STRESS/PHARM MYOCARDIAL SPECT [place] [address] [place] [address] [facility] [address] [place] [address] Referral ID Status Reason Start Date Expiration Date V isits Requested Visits Authorized [id number] Closed Auto-Generate d Referral 04/28/2023 05/27/2024 1 1 Specialty Diagnoses / Procedures Referred By Contac t Referred To Contact Diagnoses Complaints of memory disturbance Forgetfulness Procedures NEUROPSYCHOLOGICAL TESTING CONSULT NEUROBEHAVIORAL STATUS XM PHYS/QHP 1ST HOUR NEUROPSYCHOLOGICAL TST EVAL PHYS/QHP 1ST HOUR NEUROPSYCHOLOGICAL TST EVAL PHYS/QHP EA ADDL HR PSYCL/NRPSYCL TST TECH 2+ TST 1ST 30 MIN PSYCL/NRPSYCL TST TECH 2+ TST EA ADDL 30 [place] [address] [place] [address] Referral ID Status Reason Start Date Expiration Date Visits Requested Visits Authorized [id number] Ref Not Required PCP Requested Referral 04/14/2024 07/13/2024 1 3 Reason Comments Follow Up Specialty Diagnoses / Procedures Referred By Contac t Referred To Contact MR IMAGING Diagnoses Memory impairment Procedures MRI BRAIN WO IVCON MRI BRAIN BRAIN STEM W/O CONTRAST MATERIAL Cassius Jiménez MD [address] [facility] [address] [place] [address] [place] [address] Referral ID Status Reason Start Date Expiration Date V isits Requested Visits Authorized [id number] Closed Auto-Generate d Referral 05/24/2024 06/23/2025 1 1 Reason Comments Established Patient Reason Comments Geriatric Evaluation Reason Comments Multiple Concerns Reason Comments Cardiology Follow Up Reason Comments Established Patient Reason Comments Follow Up Patient staes she is very dizzy FOR RECORDS PERTAINING TO PATIENTS WHO ARE [...] BE BASED ON THE PRIMARY CLINICAL RECORDS. [employer] provides no warranty or guarantee of the accuracy or completeness of information in this document.
--- NOTE | 2025-02-03 21:52 | ED.EXTPRO1 ---
HPI - Extremity Problem General Chief complaint: Extremity Problem, Nontraumatic Stated complaint: left lower extremity problem Time Seen by Provider: 02/03/25 21:49 Source: patient Mode of arrival: walk-in History of Present Illness HPI Narrative: left foot pain. Started today. no injury she can recall. Pain mainly with weight bearing. no fever. no similar problem in the past Related Data Home Medications ?Medication ?Instructions ?Recorded ?Confirmed albuterol sulfate 90 mcg/actuation 2 puff inhalation Q4H PRN 03/19/23 02/03/25 aerosol inhaler shortness of breath or wheezing lisinopril 10 1 tab PO DAILY 03/19/23 02/03/25 mg-hydrochlorothiazide 12.5 mg tablet B12 5000mcg 02/03/25 amlodipine 5 mg tablet mg 02/03/25 ascorbic acid (vitamin C) 1,000 mg 1,000 mg PO DAILY 02/03/25 02/03/25 tablet (C-1000) coQ10 (liposomal ubiquinol) 200mg 02/03/25 escitalopram oxalate 10 mg tablet mg 02/03/25 fluticasone furoate 200 inhalation 02/03/25 mcg-vilanterol 25 mcg/dose inhalation powder (Breo Ellipta) lutein 25mg and 5 mg 02/03/25 memantine 10 mg tablet mg 02/03/25 Allergies Allergy/AdvReac Type Severity Reaction Status Date / Time No Known Drug Allergies Allergy Verified 02/03/25 21:45 Review of Systems ROS Status of ROS 10 or more systems reviewed and unremarkable except as noted in history and below [facility] Medical History (Updated 02/03/25 @ 23:23 by Isai Hancock MD) Hypertension, essential, benign ?I10 - Essential (primary) hypertension (ICD-10) Asthma ?J45.909 - Unspecified asthma, uncomplicated (ICD-10) Constipation ?K59.00 - Constipation, unspecified (ICD-10) Chest pain ?R07.9 - Chest pain, unspecified (ICD-10) Abrasion of elbow ?S50.319A - Abrasion of unspecified elbow, initial encounter (ICD-10) Contusion of face ?S00.83XA - Contusion of other part of head, initial encounter (ICD-10) Facial laceration ?S01.81XA - Laceration without foreign body of other part of head, initial encounter (ICD-10) Closed head injury ?S09.90XA - Unspecified injury of head, initial encounter (ICD-10) Cataract ?H26.9 - Unspecified cataract (ICD-10) Rheumatic fever ?I00 - Rheumatic fever without heart involvement (ICD-10) High blood pressure ?I10 - Essential (primary) hypertension (ICD-10) Surgical History (Updated 09/03/23 @ 09:19 by Pat Caballero RN) H/O colonoscopy ?Z98.890 - Other specified postprocedural states (ICD-10) H/O tubal ligation ?Z98.51 - Tubal ligation status (ICD-10) Hx of tonsillectomy ?Z90.89 - Acquired absence of other organs (ICD-10) Social History Smoking status: Never smoker Highest level of school completed/degree received: 12th grade, no diploma Little interest or pleasure in doing things: not at all Feeling down, depressed, or hopeless: not at all Exam Constitutional Vital Signs, click to edit/add: Last Vital Signs Temp 98.2 F 02/03/25 21:39 Pulse 61 02/03/25 23:12 Resp 20 02/03/25 23:12 BP 153/80 H 02/03/25 23:12 Pulse Ox 99 02/03/25 23:12 O2 Del Method Room Air 02/03/25 21:39 Common normals: no apparent distress, average body habitus, oriented x3, no limitations, healthy appearing, alert and well nourished Eye Common normals: PERRL and EOMs intact bilaterally Respiratory Common normals: normal respiratory effort, no retractions, no use of accessory muscles and clear to auscultation bilaterally Cardio Common normals: regular rate, regular rhythm, S1 normal heart sound and S2 normal heart sound Extremity Other: mild swelling instep left foot. No warmth or erythema. Mild tenderness Neuro Common normals: oriented x3, CN's II-XII intact bilaterally, moves all extremities and no focal motor deficits Psych Appearance: grossly normal Course Vital Signs Vital signs: Vital Signs Temperature 98.2 F 02/03/25 21:39 Pulse Rate 82 02/03/25 21:39 Respiratory Rate 16 02/03/25 21:39 Blood Pressure 169/92 H 02/03/25 21:39 Pulse Oximetry 99 02/03/25 21:39 Oxygen Delivery Method Room Air 02/03/25 21:39 Temperature 98.2 F 02/03/25 21:39 Pulse Rate 61 02/03/25 23:12 Respiratory Rate 20 02/03/25 23:12 Blood Pressure 153/80 H 02/03/25 23:12 Pulse Oximetry 99 02/03/25 23:12 Oxygen Delivery Method Room Air 02/03/25 21:39 MDM - Extremity (Nontraumatic) MDM Narrative Medical decision making narrative: patient presents with one day history of pain left foot. No injury. Pain with weight bearing. Found to have mild swelling instep left foot. No erythema or warmth. xray with degenerative changes and labs , including inflammatory markers and uric acid neg. Treated with dose of prednisone. Pain improved. Discharged home with a prescription of prednisone and is to follow up with her doctor next week for recheck Lab Data Labs: Lab Results 02/03/25 Range/Units 22:20 WBC 9.5 (4.0-11.0) 10^3/uL RBC 4.92 (4.20-5.40) 10^6/uL Hgb 15.3 (12.0-16.0) g/dL Hct 44.5 (36.0-48.0) % MCV 90.4 (81.0-99.0) fL MCH 31.1 (26.7-34.0) pg MCHC 34.4 (29.9-35.2) g/dL RDW 13.0 (11.0-15.0) % Plt Count 302 (150-450) 10^3/uL MPV 9.7 (9.5-13.5) fL Neut % (Auto) 70.5 (43.0-75.0) % Lymph % (Auto) 18.9 L (20.5-60.0) % [place] % (Auto) 8.0 (1.7-12.0) % Eos % (Auto) 1.8 (0.9-7.0) % Baso % (Auto) 0.6 (0.2-2.0) % Neut # (Auto) 6.7 H (1.4-6.5) 10^3/uL Lymph # (Auto) 1.8 (1.2-3.8) 10^3/uL [place] # (Auto) 0.8 (0.3-0.8) 10^3/uL Eos # (Auto) 0.2 (0.0-0.7) 10^3/uL Baso # (Auto) 0.1 (0.0-0.1) 10^3/uL Abs Immat Gran (auto) 0.02 (0.00-0.03) 10^3/uL Imm/Tot Granulo (auto) 0.2 (0.0-0.5) % ESR 13 (<=30) mm/hr Sodium 141 (136-145) mmol/L Potassium 3.6 (3.5-5.1) mmol/L Chloride 101 (98-107) mmol/L Carbon Dioxide 30.1 (21.0-32.0) mmol/L Anion Gap 13.5 BUN 22.0 H (7.0-18.0) mg/dL Creatinine 0.71 (0.55-1.02) mg/dL Est GFR ( Amer) >60 (>=60 mL/min/1.73m^2) Est GFR (Non-Af Amer) >60 (>=60 mL/min/1.73m^2) BUN/Creatinine Ratio 31.0 Glucose 102 (74-106) mg/dL Uric Acid 5.8 (2.6-6.0) mg/dL Calcium 9.9 (8.5-10.1) mg/dL C-Reactive Protein <0.50 (<=0.50) mg/dL Discharge Plan Discharge Chief Complaint: Extremity Problem, Nontraumatic Clinical Impression: Arch pain of left foot Patient Disposition: Home, Self-Care Prescriptions / Home Meds: No Action albuterol sulfate 90 mcg/actuation HFA aerosol inhaler 2 puff INHALATION Q4H PRN (Reason: shortness of breath or wheezing) lisinopril-hydrochlorothiazide 10-12.5 mg tablet 1 tab PO DAILY amlodipine 5 mg tablet escitalopram oxalate 10 mg tablet memantine 10 mg tablet fluticasone furoate-vilanterol [Breo Ellipta] 200-25 mcg/dose blister with device INHALATION B12 5000mcg ascorbic acid (vitamin C) [C-1000] 1,000 mg tablet 1,000 mg PO DAILY lutein 25mg and 5 mg coQ10 (liposomal ubiquinol) 200mg Print Language: Portuguese Instructions: Arthralgia (ED) Additional Instructions: follow up with your doctor next week for recheck Referrals: SRINIVASAN LEZAMA [Primary Care Provider, Family Practice] - 1 week
--- NOTE | 2025-02-03 21:55 | XR_ITS ---
The [address] [address] Patient Name: JASIEL ROOT MRN: [id number] date: 1945 Sex: F Assigned Patient Location: ER Current Patient Location: ER Accession/Order Number: [id number] Exam Date: 02/03/2025 22:41 Report Date: 02/03/2025 22:42 At the request of: AMINATA REED MD Procedure: XR foot LT min 3V 3 views left foot plain film COMPARISON:03/11/2024 HISTORY: Acute left foot pain. No injury ACUTE FINDINGS: None DEGENERATIVE CHANGE: Mild to moderate degenerative changes SOFT TISSUE FINDINGS: Unremarkable JOINT EFFUSION: None POSTOP CHANGES: None BONE MINERALIZATION: Adequate XR/XR foot LT min 3V IMPRESSION: Degenerative change. No acute findings Impression dictated by: Heriberto Metzger M.D. 02/03/2025 10:42 PM Dictation Location: [place] [address] Electronically authenticated by: [id number] Y Date: 02/03/2025 22:42
[2025-02-03] MEDS: PREDNISONE 20 MG TABLET 60 MG PO (22:09)
[2025-02-03 22:33] LABS: Basophils Absolute Auto 0.1 10^3/uL (0.0-0.1); Basophils Percent Auto 0.6 % (0.2-2.0); Eosinophils Absolute Auto 0.2 10^3/uL (0.0-0.7); Eosinophils Percent Auto 1.8 % (0.9-7.0); Hematocrit 44.5 % (36.0-48.0); Hemoglobin 15.3 g/dL (12.0-16.0); Immature Granulocytes Abs Auto 0.02 10^3/uL (0.00-0.03); Immature Granulocytes Pct Auto 0.2 % (0.0-0.5); Lymphocytes Absolute Auto 1.8 10^3/uL (1.2-3.8); Lymphocytes Percent Auto 18.9 % (20.5-60.0); Mean Corpuscular HGB Conc 34.4 g/dL (29.9-35.2); Mean Corpuscular Hemoglobin 31.1 pg (26.7-34.0); Mean Corpuscular Volume 90.4 fL (81.0-99.0); Mean Platelet Volume 9.7 fL (9.5-13.5); Monocytes Absolute Auto 0.8 10^3/uL (0.3-0.8); Neutrophils Absolute Auto 6.7 10^3/uL (1.4-6.5); Neutrophils Percent Auto 70.5 % (43.0-75.0); Platelet Count 302 10^3/uL (150-450); Red Blood Count 4.92 10^6/uL (4.20-5.40); White Blood Count 9.5 10^3/uL (4.0-11.0)
[2025-02-03 22:44] LABS: Anion Gap 13.5; C Reactive Protein <0.50 mg/dL (<=0.50); Calcium 9.9 mg/dL (8.5-10.1); Carbon Dioxide 30.1 mmol/L (21.0-32.0); Chloride 101 mmol/L (98-107); Estimated GFR (African America >60 (>=60 mL/min/1.73m^2); Estimated GFR (Non-African Ame >60 (>=60 mL/min/1.73m^2); Glucose 102 mg/dL (74-106); Potassium 3.6 mmol/L (3.5-5.1); Sodium 141 mmol/L (136-145); Uric Acid 5.8 mg/dL (2.6-6.0)
[2025-02-03 22:57] LABS: Erythrocyte Sedimentation Rate 13 mm/hr (<=30)
[2025-02-03 23:12] VITALS: BP 153/80; PULSE 61; O2SAT 99
== END 2025-02-03 23:37 | disposition home or self-care (01) ==
PROVIDERS: Emergency Provider Internal Medicine; PCP Family Medicine
DX: M79.672 Pain in left foot (principal)
CPT/HCPCS: 36415; 73630; 80048; 84550; 85025; 85652; 86140; 99284; J7512